=== PATIENT | male | born 1950 | race Caucasian/White ===

== ENCOUNTER → 2019-09-05 10:55 | Outpatient (BNVA) | payer MEDICARE, OTHER, SELFPAY | PROVIDERS: Family Provider Family Medicine; PCP Family Medicine; Visit Provider Specialist | DX: G20 Parkinson's disease (principal); G56.02 Carpal tunnel syndrome, left upper limb; Z87.891 Personal history of nicotine dependence | CPT/HCPCS: 99214 ==

== ENCOUNTER → 2019-09-12 11:23 | Outpatient (BNVA) | payer MEDICARE, OTHER, SELFPAY | PROVIDERS: Family Provider Family Medicine; PCP Family Medicine; Referring Provider Specialist; Visit Provider Specialist | DX: G62.9 Polyneuropathy, unspecified (principal); G56.23 Lesion of ulnar nerve, bilateral upper limbs; G56.03 Carpal tunnel syndrome, bilateral upper limbs | CPT/HCPCS: 95910 ==

== ENCOUNTER 2019-10-12 18:13 | Outpatient (CLI) | payer MEDICARE, OTHER, SELFPAY ==
[2019-10-12 18:37] LABS: Body Fluid WBC 1741 u/L; RBC, Body Fluid 0 10^3/uL (0-0)
[2019-10-12 19:46] LABS: Color, Body Fluid PALE YELLOW (PALE YELLOW)
[2019-10-12 19:47] LABS: Apprearance, Body Fluid CLOUDY (CLEAR)
[2019-10-12 20:49] LABS: Body Fluid Polynuclear #Cells 1.482 10^3/uL; Monocytes # Body Fluid 0.259 10^3/uL
[2019-10-12 20:51] LABS: PATH Referral YES
== END 2019-10-12 18:14 | disposition home or self-care (01) ==
PROVIDERS: Family Provider Family Medicine; PCP Family Medicine; Visit Provider Internal Medicine Nephrology
DX: R88.0 Cloudy (hemodialysis) (peritoneal) dialysis effluent (principal)
CPT/HCPCS: 80500; 87070; 87075; 87077; 87186; 87205; 89050

== ENCOUNTER 2019-10-19 15:53 | Outpatient (CLI) | payer MEDICARE, OTHER, SELFPAY ==
--- NOTE | 2019-10-19 16:04 | XR_ITS ---
WS: [id number] Flat and upright abdomen, 10/19/2019 Clinical Data: BLOCKED PO CATHETER Comparison: IVP, 01/22/2012. Findings: There are vascular calcifications probably from a tortuous splenic artery in the left upper quadrant. There are also calcifications to the right of the T12 vertebral body which could be in the pancreas. There is a 0.8 cm calculus overlying the inferior pole of the left kidney. The upright film of the a bdomen shows no free air beneath the diaphragms. There is air in the stomach, small bowel and colon a nd scattered air fluid levels in the small bowel. There is a catheter which is looped in the inferior aspect of the abdomen at the level of the pelvic brim. There are clips in the scrotum which are prob ably from a vasectomy. There is an electronic device overlying the right side of the abdomen. XR/XR abdomen 3V [id number] Impression: 1. Catheter which is curled in the inferior abdomen at the level of the pelvic brim. 2. Possible pancreatic calcifications and splenic artery calcifications. 3. Left renal calculus. 4. Mild generalized ileus.
== END 2019-10-19 15:54 | disposition home or self-care (01) ==
LOC: RAD 16:02
PROVIDERS: Family Provider Family Medicine; PCP Family Medicine; Visit Provider Internal Medicine Nephrology
DX: T85.898A Other specified complication of other internal prosthetic devices, implants and grafts, initial encounter (principal); Y83.8 Other surgical procedures as the cause of abnormal reaction of the patient, or of later complication, without mention of misadventure at the time of the procedure; N20.0 Calculus of kidney; K56.7 Ileus, unspecified
CPT/HCPCS: 74021

== ENCOUNTER 2019-11-26 17:52 | Outpatient (CLI) | payer MEDICARE, OTHER, SELFPAY ==
[2019-11-26 18:33] LABS: Body Fluid Polynuclear #Cells 0.001 10^3/uL; Body Fluid WBC 8 /uL; Monocytes # Body Fluid 0.007 10^3/uL; RBC, Body Fluid 1 10^3/uL (0-0)
[2019-11-26 18:36] LABS: Apprearance, Body Fluid CLEAR (CLEAR); Color, Body Fluid COLORLESS (PALE YELLOW); PATH Referral YES
== END 2019-11-26 17:53 | disposition home or self-care (01) ==
PROVIDERS: Family Provider Family Medicine; PCP Family Medicine; Visit Provider Internal Medicine Nephrology
DX: N18.6 End stage renal disease (principal)
CPT/HCPCS: 80500; 87070; 87075; 87205; 89050

== ENCOUNTER 2019-12-20 15:10 | Outpatient (RCR) | payer MEDICARE, OTHER, SELFPAY | END 2020-01-07 23:59 | disposition home or self-care (01) | LOC: SOT 15:10 | PROVIDERS: PCP Family Medicine; Referring Provider Nurse Practitioner Family; Visit Provider Nurse Practitioner Family | DX: G56.02 Carpal tunnel syndrome, left upper limb (principal) | CPT/HCPCS: 97035; 97110; 97140; 97166 ==

== ENCOUNTER 2020-01-08 06:00 | Outpatient (RCR) | payer MEDICARE, OTHER, SELFPAY | END 2020-02-06 23:59 | disposition home or self-care (01) | LOC: SOT 06:00 | PROVIDERS: PCP Family Medicine; Visit Provider Nurse Practitioner Family | DX: G56.02 Carpal tunnel syndrome, left upper limb (principal) | CPT/HCPCS: 97035; 97110; 97140 ==

== ENCOUNTER 2020-02-07 06:00 | Outpatient (RCR) | payer MEDICARE, OTHER, SELFPAY | END 2020-03-08 23:59 | disposition home or self-care (01) | LOC: SOT 06:00 | PROVIDERS: PCP Family Medicine; Visit Provider Nurse Practitioner Family | DX: G56.02 Carpal tunnel syndrome, left upper limb (principal) | CPT/HCPCS: 97035; 97110; 97140 ==

== ENCOUNTER 2020-03-09 06:00 | Outpatient (RCR) | payer MEDICARE, OTHER, SELFPAY | END 2020-04-08 23:59 | disposition home or self-care (01) | LOC: SOT 06:00 | PROVIDERS: PCP Family Medicine; Visit Provider Nurse Practitioner Family | DX: M75.42 Impingement syndrome of left shoulder (principal) | CPT/HCPCS: 97035; 97110; 97140 ==

== ENCOUNTER 2020-03-14 06:00 | Outpatient (RCR) | payer MEDICARE, OTHER, SELFPAY | END 2020-04-08 23:59 | disposition home or self-care (01) | LOC: SPT 06:00 | PROVIDERS: PCP Family Medicine; Referring Provider Orthopaedic Surgery; Visit Provider Orthopaedic Surgery | DX: M75.42 Impingement syndrome of left shoulder (principal) | CPT/HCPCS: 97110; 97161 ==

== ENCOUNTER 2020-04-09 06:00 | Outpatient (RCR) | payer MEDICARE, OTHER, SELFPAY | END 2020-05-08 23:59 | disposition home or self-care (01) | LOC: SPT 06:00 | PROVIDERS: PCP Family Medicine; Referring Provider Orthopaedic Surgery; Visit Provider Orthopaedic Surgery | DX: M75.42 Impingement syndrome of left shoulder (principal) | CPT/HCPCS: 97110 ==

== ENCOUNTER 2020-08-12 06:54 | Emergency (ER) | payer MEDICARE, OTHER, SELFPAY ==
[2020-08-12 06:56] VITALS: BP 97/65; PULSE 68; RESP 20; TEMP 36.6; O2SAT 98; BMI 29.2
--- NOTE | 2020-08-12 07:02 | XR_ITS ---
WS: [id number] PORTABLE CHEST HISTORY: chest pain COMPARISON: 03/19/2018 Well-aerated lungs with a linear scar at the lingula and granuloma in the central LEFT lung. No pneum onia. No pleural effusion or pneumothorax. Cardiac size: Normal. Mediastinum/Aorta: Normal mediastinum. No osseous abnormality seen. XR/XR chest 1V portable [id number] IMPRESSION: Unremarkable portable chest.
[2020-08-12 07:08] LABS: Glucose Point of Care 53 mg/dL (70-110)
--- NOTE | 2020-08-12 07:11 | ED_ITS ---
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 He also has a history of known coronary disease states he had a stent about 2 months ago at [facility]. He intermittently continues to have chest pain he took a nitro for chest pain that began at rest 1 week ago and this morning around 5 AM began having chest pain he states it was a 2-3 of 10 he ended up taking 2 nitro after which he called 911 and then took a third nitro. On arrival here he still states his chest pain of 1-2. His blood sugar is decreased, he was 81 in the field and is 58 on arrival here. For the most part his chest pain has resolved now. He denies any shortness of breath. The chest pain began while he was at rest and radiated into his back and into both arms. MD complaint: chest pain Pertinent past history: coronary artery disease Onset (ago): hour(s) Timing of current episode: episodic Prior episodes: Yes Onset: during rest Pain location: substernal Pain radiation: right arm, left arm, left shoulder and right shoulder Severity: mild Pain scale (0-10): 3 Quality: aching and heaviness Relieving factors: nitroglycerin Exacerbating factors: nothing Associated symptoms: Reports dyspnea; Deny abdominal pain, diaphoresis, fever(s), leg edema, nausea, palpitations, sense of impending doom, syncope or vomiting Treatment prior to arrival: nitroglycerin Review of Systems Const: Denies: fever(s) or diaphoresis ENMT: Denies: throat pain, ear or mastoid pain, nasal discharge or nasal congestion Card: Denies: palpitations or syncope Resp: Reports: dyspnea GI: Denies: abdominal pain, nausea or vomiting : Denies: flank pain, dysuria, urinary frequency or urinary urgency Skin/Breast: Denies: rash or pruritus PFSH ED PFSH: Family History Other CAD (coronary artery disease) Cancer Diabetes Hypertension Denies family history of Stroke Social History Smoking and tobacco status: former smoker Quit status (tobacco): has quit using tobacco Year quit tobacco: 1992 Alcohol intake: never Physical Exam Const: COMMON NORMALS: no acute distress GENERAL APPEARANCE: cooperative and comfortable ORIENTATION/CONSCIOUSNESS: Yes awake, Yes oriented to person, Yes oriented to place and Yes oriented to time HENMT: COMMON NORMALS: normocephalic, atraumatic and hearing grossly normal bilaterally HEAD & SCALP: normocephalic and atraumatic Eye: COMMON NORMALS: Equal, round and reactive pupils present, EOMs intact bilaterally, conjunctivae normal and no scleral icterus CONJUNCTIVA: Yes conj unctivae normal PUPIL: Yes Equal, round and reactive pupils present Neck/C-Spine: COMMON NORMALS: no JVD Resp: COMMON NORMALS: normal respiratory effort, No retractions, No use of accessory muscles and clear to auscultation bilaterally AUSCULTATION: clear to auscultation bilaterally Cardio: COMMON NORMALS: no JVD, regular rate, regular rhythm and No murmurs present (Cardio) RATE: regular rate RHYTHM: regular rhythm GI: COMMON NORMALS: Soft to palpation and No hepatosplenomegaly present AUSCULTATION: Yes normoactive bowel sounds PALPATION: Yes Soft to palpation, No Tenderness to palpation present (GI), No Guarding due to palpation present (GI) and Yes No hepatosplenomegaly present Extremity: COMMON NORMALS: normal to inspection, capillary refill normal, no clubbing, cyanosis or edema, no calf tenderness and no pedal edema Neuro: SENSORIUM/ORIENTATION: Yes oriented to person, Yes oriented to place and Yes oriented to time OTHER: Left arm tremor at rest. Masklike facies consistent with Parkinson's Skin: COMMON NORMALS: no rashes or lesions noted GENERAL SKIN EXAM: no rashes or lesions noted Course Vital Signs: Vital signs: Vital Signs Temperature 97.8 F 08/12/20 06:56 Pulse Rate 75 08/12/20 12:13 Respiratory Rate 16 08/12/20 12:13 Blood Pressure 128/85 08/12/20 12:13 Pulse Oximetry 100 08/12/20 12:13 MDM - Chest Pain MDM Narrative: Medical decision making narrative: EMS initial EKG showed some inferior slight inferior ST elevation which resolved and the patient was pain- free by the time he arrived here. His troponin is markedly elevated some of which is certainly contributed to by his end-stage renal disease but we do not have a baseline on him. Given his escalating symptoms response to nitro the elevated troponin is multiple risk factors he does need further evaluation cardiology consultation. We are currently beyond capacity for inpatients in addition the patient previously had his Cardiologic intervention at [facility] it is in the best interest of the patient to transfer him to [place] for continuity of care and availability of beds [place] has excepted we are making arrangements for transfer Covid is pending Covid was negative. Transfer in stable condition Lab Data: Labs: Lab Results 08/12/20 08/12/20 08/12/20 Range/Units 07:01 07:15 07:15 WBC 6.7 (4.0-10.0) 10^3/ uL RBC 3.09 L (4.1-5.3) 10^6/u L Hgb 10.4 L (11.7-16.6) g/dL Hct 32.0 L (42.0-52.0) % MCV 103.6 H (80-94) fL MCH 33.7 (28.0-34.0) pg MCHC 32.5 (30.0-36.0) g/dL RDW 16.6 H (12.1-15.1) % Plt Count 128 L (130-400) 10^3/c mm MPV 10.2 (7.4-10.4) fL Neut % (Auto) 62.5 % Lymph % (Auto) 23.3 % [place] % (Auto) 10.4 % Eos % (Auto) 1.8 % Baso % (Auto) 0.5 % Neut # (Auto) 4.17 (1.8-7.7) 10^3/u L Lymph # (Auto) 1.6 (0.8-4.8) 10^3/u L [place] # (Auto) 0.7 (0.2-0.9) 10^3/u L Eos # (Auto) 0.1 (0.0-0.8) 10^3/u L Baso # (Auto) 0.0 (0.0-0.1) 10^3/u L Nucleated RBC % (a uto) 0 % Nucleated RBCs # 0.0 /100WBC Sodium 137 (136-145) mmol/L Potassium 3.9 (3.5-5.1) mmol/L Chloride 96 L (98-107) mmol/L Carbon Dioxide 25 (22-29) mmol/L Anion Gap 19.9 H (5-19) BUN 29 H (8-23) mg/dL Creatinine 10.3 H* (0.7-1.2) mg/dL GFR Calculation 5.0 L (90-130) mL/min Glucose 55 L (65-115) mg/dL POC Glucose 53 L (70-110) mg/dL Calculated Osmolal ity 287 (285-295) mOsm/k g Calcium 8.2 L (8.5-10.5) mg/dL Total Bilirubin 0.3 (0.15-1.2) mg/dL AST 10 (0-40) U/L ALT < 5 (0-41) U/L Alkaline Phosphata se 109 (40-130) IU/L Troponin T Baselin e (0-15) ng/L Troponin T 120 Min [place] (0-15) ng/L Delta Troponin T (0-10) ABS# Total Protein 5.8 L (6.6-8.7) g/dL Albumin 3.7 (3.5-5.2) g/dL Globulin 2.1 (1.3-4.6) g/dL SARS-CoV-2 Ag (Rap id) (Negative) 08/12/20 08/12/20 08/12/20 Range/Units 07:15 07:53 09:35 WBC (4.0-10.0) 10^3/ uL RBC (4.1-5.3) 10^6/u L Hgb (11.7-16.6) g/dL Hct (42.0-52.0) % MCV (80-94) fL MCH (28.0-34.0) pg MCHC (30.0-36.0) g/dL RDW (12.1-15.1) % Plt Count (130-400) 10^3/c mm MPV (7.4-10.4) fL Neut % (Auto) % Lymph % (Auto) % [place] % (Auto) % Eos % (Auto) % Baso % (Auto) % Neut # (Auto) (1.8-7.7) 10^3/u L Lymph # (Auto) (0.8-4.8) 10^3/u L [place] # (Auto) (0.2-0.9) 10^3/u L Eos # (Auto) (0.0-0.8) 10^3/u L Baso # (Auto) (0.0-0.1) 10^3/u L Nucleated RBC % (a uto) % Nucleated RBCs # /100WBC Sodium (136-145) mmol/L Potassium (3.5-5.1) mmol/L Chloride (98-107) mmol/L Carbon Dioxide (22-29) mmol/L Anion Gap (5-19) BUN (8-23) mg/dL Creatinine (0.7-1.2) mg/dL GFR Calculation (90-130) mL/min Glucose (65-115) mg/dL POC Glucose 123 H (70-110) mg/dL Calculated Osmolal ity (285-295) mOsm/k g Calcium (8.5-10.5) mg/dL Total Bilirubin (0.15-1.2) mg/dL AST (0-40) U/L ALT (0-41) U/L Alkaline Phosphata se (40-130) IU/L Troponin T Baselin e 350 H* (0-15) ng/L Troponin T 120 Min [place] 314.6 H (0-15) ng/L Delta Troponin T -35.4 L (0-10) ABS# Total Protein (6.6-8.7) g/dL Albumin (3.5-5.2) g/dL Globulin (1.3-4.6) g/dL SARS-CoV-2 Ag (Rap id) (Negative) 08/12/20 Range/Units 10:27 WBC (4.0-10.0) 10^3/ uL RBC (4.1-5.3) 10^6/u L Hgb (11.7-16.6) g/dL Hct (42.0-52.0) % MCV (80-94) fL MCH (28.0-34.0) pg MCHC (30.0-36.0) g/dL RDW (12.1-15.1) % Plt Count (130-400) 10^3/c mm MPV (7.4-10.4) fL Neut % (Auto) % Lymph % (Auto) % [place] % (Auto) % Eos % (Auto) % Baso % (Auto) % Neut # (Auto) (1.8-7.7) 10^3/u L Lymph # (Auto) (0.8-4.8) 10^3/u L [place] # (Auto) (0.2-0.9) 10^3/u L Eos # (Auto) (0.0-0.8) 10^3/u L Baso # (Auto) (0.0-0.1) 10^3/u L Nucleated RBC % (a uto) % Nucleated RBCs # /100WBC Sodium (136-145) mmol/L Potassium (3.5-5.1) mmol/L Chloride (98-107) mmol/L Carbon Dioxide (22-29) mmol/L Anion Gap (5-19) BUN (8-23) mg/dL Creatinine (0.7-1.2) mg/dL GFR Calculation (90-130) mL/min Glucose (65-115) mg/dL POC Glucose (70-110) mg/dL Calculated Osmolal ity (285-295) mOsm/k g Calcium (8.5-10.5) mg/dL Total Bilirubin (0.15-1.2) mg/dL AST (0-40) U/L ALT (0-41) U/L Alkaline Phosphata se (40-130) IU/L Troponin T Baselin e (0-15) ng/L Troponin T 120 Min [place] (0-15) ng/L Delta Troponin T (0-10) ABS# Total Protein (6.6-8.7) g/dL Albumin (3.5-5.2) g/dL Globulin (1.3-4.6) g/dL SARS-CoV-2 Ag (Rap id) Negative (Negative) Discharge Plan Discharge Patient Disposition: Transfer to ED Clinical Impression: Unstable angina pectoris, End-stage renal disease on peritoneal dialysis, Elevated troponin, Diabetes mellitus Condition: Stable Prescriptions: No Action allopurinol 300 mg tablet 300 mg PO QDAY RF: 0 trazodone 100 mg tablet 200 mg PO QDAY RF: 0 tramadol 50 mg tablet 50 mg PO Q6H PRNRF: 0 mirtazapine 45 mg tablet 45 mg PO QDAY RF: 0 omeprazole 20 mg capsule,delayed release(DR/EC) 20 mg PO QDAY RF: 0 hydralazine 100 mg tablet 100 mg PO TID RF: 0 lamotrigine [Lamictal] 200 mg tablet 400 mg PO .evening RF: 0 furosemide 80 mg tablet 80 mg PO .COMPLEX RF: 0 docusate sodium [DOK] 100 mg capsule 100 mg PO BID RF: 0 finasteride 5 mg tablet 5 mg PO QDAY RF: 0 calcium carbonate 200 mg calcium (500 mg) tablet,chewable 200 mg PO ONCE PRNRF: 0 Pancreaze 10,500-35,500- 61,500 unit capsule,delayed release(DR/EC) 1 cap PO ONCE RF: 0 pwinkcn-esmgyyzrg-jzvu 333-133-5 mg tablet PO ONCE RF: 0 potassium chloride 20 mEq tablet extended release 20 meq PO BID RF: 0 terazosin 1 mg capsule 1 mg PO QDAY RF: 0 bupropion HCl [Wellbutrin SR] 150 mg tablet sustained-release 12 hr 150 mg PO BID RF: 0 risperidone [Risperdal] 2 mg tablet 2 mg PO QDAY RF: 0 pregabalin 225 mg capsule 225 mg PO BID RF: 0 levothyroxine 175 mcg capsule 175 mcg PO QDAY RF: 0 metoprolol succinate 100 mg tablet extended release 24 hr 100 mg PO BID RF: 0 atorvastatin 40 mg tablet 40 mg PO QDAY RF: 0 Levemir U-100 Insulin 100 unit/mL solution 40 unit SUBCUT BID RF: 0 insulin aspart U-100 [Novolog Flexpen U-100 Insulin] 100 unit/mL (3 mL) insulin pen 15 unit SUBCUT TID RF: 0 primidone 50 mg tablet 50 mg PO DAILY Qty: 90 RF: 0 Referrals: Kiran Reardon MD [Primary Care Provider] - Coding Level of Care Code ED Security Program Manager for Chg Fwd Exam Comprehensive
[2020-08-12] MEDS: dextrose 50% syringe 50 mL 25 ML IVP ×2 (07:18→08:37)
--- NOTE | 2020-08-12 07:19 | PC.NURSE ---
Patients blood sugar checked during triage. At that time blood sugar reading was 53. [place] juice was given to the patient to help increase sugar. Patient drank all orange juice provided. IV obtained and dextrose was administered.
[2020-08-12 07:28] LABS: Basophils % 0.5 %; Eosinophils # 0.1 10^3/uL (0.0-0.8); Eosinophils % 1.8 %; Hemoglobin 10.4 g/dL (11.7-16.6); Lymphocytes # 1.6 10^3/uL (0.8-4.8); Lymphocytes % 23.3 %; Mean Corpuscular HGB Conc 32.5 g/dL (30.0-36.0); Mean Corpuscular Hemoglobin 33.7 pg (28.0-34.0); Mean Corpuscular Volume 103.6 fL (80-94); Mean Platelet Volume 10.2 fL (7.4-10.4); Monocytes # 0.7 10^3/uL (0.2-0.9); Monocytes % 10.4 %; Neutrophils # 4.17 10^3/uL (1.8-7.7); Neutrophils % 62.5 %; Nucleated Red Blood Cells % 0 %; Platelet Count 128 10^3/cmm (130-400); Red Blood Count 3.09 10^6/uL (4.1-5.3); Red Cell Distribution Width 16.6 % (12.1-15.1); White Blood Count 6.7 10^3/uL (4.0-10.0)
[2020-08-12 07:44] LABS: Alanine Aminotransferase < 5 U/L (0-41); Albumin Level 3.7 g/dL (3.5-5.2); Alkaline Phosphatase 109 IU/L (40-130); Aspartate Amino Transferase 10 U/L (0-40); Blood Urea Nitrogen 29 mg/dL (8-23); Calcium 8.2 mg/dL (8.5-10.5); Carbon Dioxide 25 mmol/L (22-29); Chloride 96 mmol/L (98-107); Globulin 2.1 g/dL (1.3-4.6); Glucose 55 mg/dL (65-115); Osmolality Calculated 287 mOsm/kg (285-295); Sodium 137 mmol/L (136-145); Total Bilirubin 0.3 mg/dL (0.15-1.2); Total Protein 5.8 g/dL (6.6-8.7)
[2020-08-12 07:50] LABS: Anion Gap 19.9 (5-19); Potassium 3.9 mmol/L (3.5-5.1); Troponin(5th) Baseline 350 ng/L (0-15)
[2020-08-12 07:56] LABS: Glucose Point of Care 123 mg/dL (70-110)
[2020-08-12 08:06] VITALS: BP 110/75; PULSE 59; RESP 16; O2SAT 97
[2020-08-12] MEDS: heparin 5,000 unit/mL INJ 1 mL 4000 UNIT IVP (08:36)
[2020-08-12] MEDS: dextrose 5%-sod chloride 0.9% 1,000 ML 100 ML IV (08:37)
[2020-08-12] MEDS: heparin drip 25,000 UNIT/500 ML PREMIX 26.7 UNIT IV (08:37)
--- NOTE | 2020-08-12 09:02 | ECG_ITS ---
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 Measurements Intervals [place] Rate: 57 P: 58 IL: 246 QRS: -6 QRSD: 99 T: 71 QT: 448 QTc: 438 Interpretive Statements SINUS BRADYCARDIA WITH FIRST DEGREE AV BLOCK NONSPECIFIC T-WAVE ABNORMALITY Compared to ECG 03/19/2018 07:47:47 First degree AV block now present T-wave abnormality now present Sinus tachycardia no longer present Electronically Signed On 08-12-2020 19:07:57 SURGICAL GARMENT FITTER by Lino Javier M.D. [email or web address] [email or web address] [id number]
[2020-08-12 09:07] VITALS: BP 126/67; PULSE 59; RESP 16; O2SAT 96
[2020-08-12 10:23] VITALS: BP 129/78; PULSE 58; RESP 16; O2SAT 100
[2020-08-12 10:38] LABS: Troponin 5 2HR 314.6 ng/L (0-15); Troponin 5 2HR Delta -35.4 ABS# (0-10)
[2020-08-12 10:56] LABS: SARS Covid-2 Antigen Negative (Negative)
[2020-08-12 12:13] VITALS: BP 128/85; PULSE 75; RESP 16; O2SAT 100
[2020-08-12 13:12] LABS: Magnesium 2.1 mg/dL (1.7-2.3)
--- NOTE | 2020-08-12 13:12 | ECG_ITS ---
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 Measurements Intervals [place] Rate: 60 P: 39 SC: 239 QRS: -5 QRSD: 98 T: 78 QT: 429 QTc: 430 Interpretive Statements SINUS RHYTHM WITH FIRST DEGREE AV BLOCK NONSPECIFIC T-WAVE ABNORMALITY Compared to ECG 03/19/2018 07:47:47 First degree AV block now present T-wave abnormality now present Sinus tachycardia no longer present Electronically Signed On 08-12-2020 19:08:58 SAND CASTER APPRENTICE by Lino Javier M.D. [id number]
== END 2020-08-12 12:14 ==
PROVIDERS: Emergency Provider Family Medicine; PCP Family Medicine
DX: E11.22 Type 2 diabetes mellitus with diabetic chronic kidney disease (principal); N18.6 End stage renal disease; Z99.2 Dependence on renal dialysis; I20.0 Unstable angina; R77.8 Other specified abnormalities of plasma proteins; Z79.4 Long term (current) use of insulin; Z87.891 Personal history of nicotine dependence
CPT/HCPCS: 12345; 36416; 71045; 80053; 82962; 83735; 84484; 85025; 87426; 93005; 96365; 96366; 96375; 99283; 99285; J1644

== ENCOUNTER 2020-10-24 01:33 | Inpatient (IN) | payer MEDICARE, OTHER, SELFPAY ==
[2020-10-24] VITALS (11 sets, daily range): BP systolic 91–123; BP diastolic 52–89; PULSE 56–85; RESP 16–18; TEMP 36.3–37.1; O2SAT 92–97; BMI 27.3
--- NOTE | 2020-10-24 01:32 | XR_ITS ---
WS: [id number] XR chest 1V portable [id number] REASON FOR EXAM: SOB FINDINGS: The chest is unchanged compared to 08/12/2020. Mild tortuosity and ectasia of the thoracic aorta without aneurysmal dilatation. Normal heart size. Calcified granulomatous disease in both hemithoraces. No active pulmonary parenchymal pleural disease . No significant abnormality of the bony thorax. XR/XR chest 1V portable [id number] IMPRESSION: No acute chest abnormality.
--- NOTE | 2020-10-24 01:35 | ED_ITS ---
HPI - General Adult General: Chief complaint: General Medical Stated complaint: WEAK/LOW BP Source: patient, family and RN notes reviewed Limitations: no limitations History of Present Illness: HPI narrative: This patient presents to the emergency department via EMS for concerns of shortness of breath. Patient describes a panic type issue. Patient states he was laying in bed and suddenly felt like he could not breathe and was shaking and set up and had to get up real fast patient states he does not ambulate very well and is on multiple medications. states that the believes that he does have Parkinson disease and does take medications for the same even though he does not officially have a diagnosis of Parkinson's disease. Patient's chronic condition is that he lays in the bed and sleeps for about 22 hours a day and this has been like this for some time. Patient does take peritoneal dialysis chronically patient also has a history of diabetes. Patient does have an insulin glucose monitor right abdomen. No fever upon arrival. Patient describes no pain at this time no chest pain. Patient is feeling much better. describes that the patient did have a poor appetite for the past couple of days and even vomited tonight prior to being picked up and brought to the emergency department. Patient does have a history of issues with his pancreas and acetate protease enzymes to help with digestion. Patient is followed by multiple physicians and is usually cared for by his primary care physicians out of [facility] in [place]. Patient has a long history of hypertension but they have been weaning him off of his blood pressure medicines because now he is having low blood pressure readings. We will do medical screening exam and evaluate treat further as needed Onset (ago): day(s) (5) Pain Consistency: intermittent Associated symptoms: Reports malaise; Deny chest pain, dyspnea, headache(s), nausea, rash, palpitations or vomiting Review of Systems General: Reports: 10 or more systems reviewed and unremarkable except in HPI and below Const: Reports: change in appetite, malaise and daytime sleepiness; Denies: fever(s), chills, body aches or fatigue Eyes: Denies: change in vision or blurry vision ENMT: Denies: throat pain, hoarseness or mouth pain Card: Denies: chest pain or palpitations Resp: Denies: dyspnea GI: Denies: nausea or vomiting : Reports: flank pain; Denies: dysuria, urinary frequency, urinary urgency or urinary hesitancy Musc: Denies: neck pain, back pain, extremity pain, extremity swelling, joint pain, joint swelling, joint redness, joint warmth or limited range of motion Skin/Breast: Denies: rash Neuro: Denies: headache(s) Psych: Denies: anxiety or depression PFSH ED PFSH: Medical History Diabetes Hypertension Surgical History History of carpal tunnel release left wrist 1975 Family History Other CAD (coronary artery disease) Cancer Diabetes Hypertension Denies family history of Stroke Social History Smoking and tobacco status: former smoker Quit status (tobacco): has quit using tobacco Year quit tobacco: 1992 Alcohol intake: never Physical Exam Const: COMMON NORMALS: no acute distress, average body habitus, patient oriented x3, no limitations, healthy appearing, alert and well nourished HENMT: COMMON NORMALS: normocephalic, atraumatic, external ears normal, EAC's normal, TM's normal bilaterally, Normal external nose present and Normal nasal mucous membranes and turbinates present HEAD & SCALP: normocephalic and atra umatic NOSE: Normal external nose present and Normal nasal mucous membranes and turbinates present EXTERNAL EAR: Yes external ears normal EXTERNAL AUDITORY CANAL: EAC's normal TYMPANIC MEMBRANE: TM's normal bilaterally Neck/C-Spine: COMMON NORMALS: full ROM, no lymphadenopathy, supple, no meningeal signs, no JVD, Thyroid normal and No carotid bruits THYROID: Thyroid normal Chest: COMMONS NORMALS: normal inspection of the chest, normal palpation of entire chest wall, normal inspection of the breasts and normal palpation of the breasts Breast/axilla inspection: Yes normal inspection of the breasts BREAST/AXILLA PALPATION: Yes normal palpation of the breasts Resp: COMMON NORMALS: normal respiratory effort, No retractions, No use of accessory muscles, clear to auscultation bilaterally and percussion normal AUSCULTATION: clear to auscultation bilaterally PERCUSSION: percussion normal Cardio: COMMON NORMALS: no JVD, regular rate, regular rhythm, S1 normal heart sound present, S2 normal heart sound present, No gallops present (Cardio), No clicks present (Cardio), No murmurs present (Cardio), No rub (Cardio) and Peripheral pulses 2+ throughout RATE: regular rate RHYTHM: regular rhythm HEART SOUNDS: S1 normal heart sound present and S2 normal heart sound present PERIPHERAL PULSES: Peripheral pulses 2+ throughout GI: COMMON NORMALS: Normal to inspection, nondistended, normoactive bowel sounds present, Soft to palpation, non-tender, No hepatosplenomegaly present, no masses and no bruits PALPATION: Yes Soft to palpation and Yes No hepatosplenomegaly present : COMMON NORMALS: Yes no CVA tenderness BLADDER/KIDNEY EXAM: Yes no CVA tenderness Back/Pelvis: COMMON NORMALS: no CVA tenderness, thoracic and lumbar spine normal to inspection, no thoracic nor lumbar tenderness, thoraco-lumbar ROM normal and straight leg raise negative bilaterally Extremity: COMMON NORMALS: normal to inspection, full ROM, capillary refill normal, no joint enlargement, no clubbing, cyanosis or edema, no calf tenderness and no pedal edema Neuro: COMMON NORMALS: patient oriented x3 SENSORIUM/ORIENTATION: Yes alert MENINGEAL SIGNS: Yes no meningeal signs Course Reevaluation(s): Reevaluation #1: Patient is resting at this time. Patient's potassium was 2.7 with baseline is around 3.6. Patient does take peritoneal dialysis and has chronic renal failure. and patient states the patient has had no appetite and has lost greater than 10 pounds in the past 7 to 9 days. states that anytime he eats he vomits up. Profound lower blood pressures over the past couple weeks and has stopped taking medications. is concerned that the patient is just getting sicker and sicker nobody knows what is going on. Patient excessively sleeping up to 20 to 22 hours a day. No activity. Patient's been started on Parkinson's medications for tremor. 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 is concerned that the patient is getting sicker still have significant issues of discharged home. I did discuss at length with both the advise that we would contact hospitalist for possible admission for failure to thrive. Time: 03:11 Consultations: Consultation #1: I discussed at length with Dr. Schroeder. We did review the patient's chart patient be admitted to the hospital for observation. She will see patient write additional orders Time: 03:12 Vital Signs: Vital signs: Vital Signs Temperature 98.7 F 10/24/20 01:19 Pulse Rate 71 10/24/20 02:30 Respiratory Rate 16 10/24/20 02:30 Blood Pressure 116/63 10/24/20 02:30 Pulse Oximetry 97 10/24/20 02:30 MDM - General Adult Lab Data: Labs: Lab Results 10/24/20 10/24/20 10/24/20 Range/Units 01:42 01:42 01:42 WBC 7.0 (4.0-10.0) 10^3/ uL RBC 3.75 L (4.1-5.3) 10^6/u L Hgb 12.2 (11.7-16.6) g/dL Hct 35.5 L (42.0-52.0) % MCV 94.7 H (80-94) fL MCH 32.5 (28.0-34.0) pg MCHC 34.4 (30.0-36.0) g/dL RDW 13.7 (12.1-15.1) % Plt Count 125 L (130-400) 10^3/c mm MPV 11.1 H (7.4-10.4) fL Neut % (Auto) 77.5 % Lymph % (Auto) 11.9 % [place] % (Auto) 8.3 % Eos % (Auto) 1.0 % Baso % (Auto) 0.4 % Neut # (Auto) 5.45 (1.8-7.7) 10^3/u L Lymph # (Auto) 0.8 (0.8-4.8) 10^3/u L [place] # (Auto) 0.6 (0.2-0.9) 10^3/u L Eos # (Auto) 0.1 (0.0-0.8) 10^3/u L Baso # (Auto) 0.0 (0.0-0.1) 10^3/u L Nucleated RBC % (a uto) 0 % Nucleated RBCs # 0.0 /100WBC PT 13.40 (12.1-14.9) SECO NDS INR 0.99 (0.8-1.2) APTT 21.3 L (23.9-36.7) SECO NDS Sodium 133 L (136-145) mmol/L Potassium 2.7 L* (3.5-5.1) mmol/L Chloride 93 L (98-107) mmol/L Carbon Dioxide 25 (22-29) mmol/L Anion Gap 17.7 (5-19) BUN 37 H (8-23) mg/dL Creatinine 10.9 H* (0.7-1.2) mg/dL GFR Calculation 4.7 L (90-130) mL/min Glucose 127 H (65-115) mg/dL Calculated Osmolal ity 286 (285-295) mOsm/k g Lactate (0.5-2.2) mmol/L Calcium 7.9 L (8.5-10.5) mg/dL Magnesium 2.3 (1.7-2.3) mg/dL Total Bilirubin 0.3 (0.15-1.2) mg/dL AST 6 (0-40) U/L ALT < 5 (0-41) U/L Alkaline Phosphata se 135 H (40-130) IU/L C-Reactive Protein 12.6 H (0.0-4.9) mg/L NT-Pro-B Natriuret Pep 1902 H (0-125) pg/mL Total Protein 5.7 L (6.6-8.7) g/dL Albumin 2.7 L (3.5-5.2) g/dL Globulin 3.0 (1.3-4.6) g/dL Lipase 5 L (13-60) U/L Procalcitonin 0.38 (0-0.5) ng/mL Urine Color (Yellow) Urine Appearance (CLEAR) Urine pH (5-7) Ur Specific Gravit y (1.005-1.030) Urine Protein (Negative) Urine Glucose (UA) (Normal) Urine Ketones (Negative) Urine Blood (Negative) Urine Nitrate (Negative) Urine Bilirubin (Negative) Urine Urobilinogen (Negative) mg/dL Ur Leukocyte Leyla ase (Negative) Urine RBC (0-2) /hpf Urine WBC (0-5) /hpf Ur Squamous Epith Cells (0-5) /hpf Amorphous Sediment /hpf Urine Bacteria (NONE) /hpf 10/24/20 10/24/20 Range/Units 01:42 02:27 WBC (4.0-10.0) 10^3/ uL RBC (4.1-5.3) 10^6/u L Hgb (11.7-16.6) g/dL Hct (42.0-52.0) % MCV (80-94) fL MCH (28.0-34.0) pg MCHC (30.0-36.0) g/dL RDW (12.1-15.1) % Plt Count (130-400) 10^3/c mm MPV (7.4-10.4) fL Neut % (Auto) % Lymph % (Auto) % [place] % (Auto) % Eos % (Auto) % Baso % (Auto) % Neut # (Auto) (1.8-7.7) 10^3/u L Lymph # (Auto) (0.8-4.8) 10^3/u L [place] # (Auto) (0.2-0.9) 10^3/u L Eos # (Auto) (0.0-0.8) 10^3/u L Baso # (Auto) (0.0-0.1) 10^3/u L Nucleated RBC % (a uto) % Nucleated RBCs # /100WBC PT (12.1-14.9) SECO NDS INR (0.8-1.2) APTT (23.9-36.7) SECO NDS Sodium (136-145) mmol/L Potassium (3.5-5.1) mmol/L Chloride (98-107) mmol/L Carbon Dioxide (22-29) mmol/L Anion Gap (5-19) BUN (8-23) mg/dL Creatinine (0.7-1.2) mg/dL GFR Calculation (90-130) mL/min Glucose (65-115) mg/dL Calculated Osmolal ity (285-295) mOsm/k g Lactate 3.4 H (0.5-2.2) mmol/L Calcium (8.5-10.5) mg/dL Magnesium (1.7-2.3) mg/dL Total Bilirubin (0.15-1.2) mg/dL AST (0-40) U/L ALT (0-41) U/L Alkaline Phosphata se (40-130) IU/L C-Reactive Protein (0.0-4.9) mg/L NT-Pro-B Natriuret Pep (0-125) pg/mL Total Protein (6.6-8.7) g/dL Albumin (3.5-5.2) g/dL Globulin (1.3-4.6) g/dL Lipase (13-60) U/L Procalcitonin (0-0.5) ng/mL Urine Color Yellow (Yellow) Urine Appearance Clear (CLEAR) Urine pH 5 (5-7) Ur Specific Gravit y 1.020 (1.005-1.030) Urine Protein Neg (Negative) Urine Glucose (UA) 2+ (Normal) Urine Ketones 1+ H (Negative) Urine Blood 2+ H (Negative) Urine Nitrate Negative (Negative) Urine Bilirubin 1+ H (Negative) Urine Urobilinogen Norm (Negative) mg/dL Ur Leukocyte Leyla ase Negative (Negative) Urine RBC 0-4 H (0-2) /hpf Urine WBC Rare (0-5) /hpf Ur Squamous Epith Cells Rare (0-5) /hpf Amorphous Sediment 2+ /hpf Urine Bacteria None (NONE) /hpf Discharge Plan Discharge Clinical Impression: Adult failure to thrive, Parkinsonian tremor, Nausea & vomiting, Acute hypokalemia, Chronic kidney 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, Excessive weight loss Condition: Stable Prescriptions: No Action allopurinol 300 mg tablet 300 mg PO QDAY RF: 0 trazodone 100 mg tablet 200 mg PO QDAY RF: 0 tramadol 50 mg tablet 50 mg PO Q6H PRNRF: 0 mirtazapine 45 mg tablet 45 mg PO QDAY RF: 0 omeprazole 20 mg capsule,delayed release(DR/EC) 20 mg PO QDAY RF: 0 hydralazine 100 mg tablet 100 mg PO TID RF: 0 lamotrigine [Lamictal] 200 mg tablet 400 mg PO .evening RF: 0 furosemide 80 mg tablet 80 mg PO .COMPLEX RF: 0 docusate sodium [DOK] 100 mg capsule 100 mg PO BID RF: 0 finasteride 5 mg tablet 5 mg PO QDAY RF: 0 calcium carbonate 200 mg calcium (500 mg) tablet,chewable 200 mg PO ONCE PRNRF: 0 Pancreaze 10,500-35,500- 61,500 unit capsule,delayed release(DR/EC) 1 cap PO ONCE RF: 0 xwwaiqm-frmvvdbzj-yahi 333-133-5 mg tablet PO ONCE RF: 0 potassium chloride 20 mEq tablet extended release 20 meq PO BID RF: 0 terazosin 1 mg capsule 1 mg PO QDAY RF: 0 bupropion HCl [Wellbutrin SR] 150 mg tablet sustained-release 12 hr 150 mg PO BID RF: 0 risperidone [Risperdal] 2 mg tablet 2 mg PO QDAY RF: 0 pregabalin 225 mg capsule 225 mg PO BID RF: 0 levothyroxine 175 mcg capsule 175 mcg PO QDAY RF: 0 metoprolol succinate 100 mg tablet extended release 24 hr 100 mg PO BID RF: 0 atorvastatin 40 mg tablet 40 mg PO QDAY RF: 0 Levemir U-100 Insulin 100 unit/mL solution 40 unit SUBCUT BID RF: 0 insulin aspart U-100 [Novolog Flexpen U-100 Insulin] 100 unit/mL (3 mL) insulin pen 15 unit SUBCUT TID RF: 0 primidone 50 mg tablet 50 mg PO DAILY Qty: 90 RF: 0 Referrals: Kiran Reardon MD [Primary Care Provider] - Coding Level of Care Code ED Presentation Manager for Chg Fwd Exam Comprehensive
[2020-10-24 02:00] LABS: Basophils % 0.4 %; Eosinophils # 0.1 10^3/uL (0.0-0.8); Hematocrit 35.5 % (42.0-52.0); Hemoglobin 12.2 g/dL (11.7-16.6); Lymphocytes # 0.8 10^3/uL (0.8-4.8); Lymphocytes % 11.9 %; Mean Corpuscular HGB Conc 34.4 g/dL (30.0-36.0); Mean Corpuscular Hemoglobin 32.5 pg (28.0-34.0); Mean Corpuscular Volume 94.7 fL (80-94); Mean Platelet Volume 11.1 fL (7.4-10.4); Monocytes # 0.6 10^3/uL (0.2-0.9); Monocytes % 8.3 %; Neutrophils # 5.45 10^3/uL (1.8-7.7); Neutrophils % 77.5 %; Nucleated Red Blood Cells % 0 %; Platelet Count 125 10^3/cmm (130-400); Red Blood Count 3.75 10^6/uL (4.1-5.3); Red Cell Distribution Width 13.7 % (12.1-15.1)
[2020-10-24 02:14] LABS: INR 0.99 (0.8-1.2)
[2020-10-24 02:16] LABS: Partial Thromboplastin Time 21.3 SECONDS (23.9-36.7)
[2020-10-24 02:17] LABS: Lactate (Lactic Acid level) 3.4 mmol/L (0.5-2.2)
[2020-10-24] MEDS: ondansetron 2 mg/ML SDV 2 mL 4 MG IVP (02:18)
[2020-10-24 02:27] LABS: NT Pro B Type Natriuretic Pept 1902 pg/mL (0-125); Procalcitonin 0.38 ng/mL (0-0.5)
[2020-10-24] MEDS: sodium chloride 0.9% 1,000 ML 999 ML IV (02:31)
[2020-10-24 02:38] LABS: Alanine Aminotransferase < 5 U/L (0-41); Albumin Level 2.7 g/dL (3.5-5.2); Alkaline Phosphatase 135 IU/L (40-130); Anion Gap 17.7 (5-19); Aspartate Amino Transferase 6 U/L (0-40); Blood Urea Nitrogen 37 mg/dL (8-23); C Reactive Protein 12.6 mg/L (0.0-4.9); Calcium 7.9 mg/dL (8.5-10.5); Carbon Dioxide 25 mmol/L (22-29); Chloride 93 mmol/L (98-107); Glomerular Filtration Rate 4.7 mL/min (90-130); Glucose 127 mg/dL (65-115); Lipase 5 U/L (13-60); Magnesium 2.3 mg/dL (1.7-2.3); Osmolality Calculated 286 mOsm/kg (285-295); Sodium 133 mmol/L (136-145); Total Bilirubin 0.3 mg/dL (0.15-1.2); Total Protein 5.7 g/dL (6.6-8.7)
[2020-10-24 02:41] LABS: Bilirubin Urine 1+ (Negative); Blood Urine 2+ (Negative); Glucose Urine UA 2+ (Normal); Ketones Urine 1+ (Negative); Leukocyte Esterase Urine Negative (Negative); Nitrate Urine Negative (Negative); Protein Urine Neg (Negative); Urine Appearance Clear (CLEAR); Urine Color Yellow (Yellow); Urobilinogen Urine Norm (Negative); pH Urine 5 (5-7)
[2020-10-24 02:42] LABS: Add Urine Microscopic? YES; RBC Urine 0-4 /hpf (0-2); Squamous Epithelial Cell Urine RARE /hpf (0-5); WBC Urine RARE /hpf (0-5)
[2020-10-24 02:43] LABS: Add Urine Culture? No; Amorphous Sediment Urine 2+ /hpf
[2020-10-24 02:58] LABS: Potassium 2.7 mmol/L (3.5-5.1)
--- NOTE | 2020-10-24 03:22 | ECG_ITS ---
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 Measurements Intervals [place] Rate: 65 P: 49 PA: 243 QRS: -24 QRSD: 89 T: 76 QT: 446 QTc: 467 Interpretive Statements SINUS RHYTHM WITH FIRST DEGREE AV BLOCK WITH FREQUENT VENTRICULAR PREMATURE COMPLEXES BORDERLINE LEFT AXIS DEVIATION [QRS AXIS < -20] NONSPECIFIC T-WAVE ABNORMALITY Compared to ECG 08/12/2020 09:25:37 Ventricular premature complex(es) now present Sinus bradycardia no longer present T-wave abnormality still present Electronically Signed On 10-25-2020 22:51:59 CDT by Lucius Stapleton M.D. [id number]
[2020-10-24] MEDS: sodium chlor 0.45% +KCl 20 mEq 20 MEQ/1,000 ML BAG 75 MEQ IV ×2 (03:46→13:53)
[2020-10-24 04:36] LABS: Glucose Point of Care 85 mg/dL (70-110)
[2020-10-24 05:29] LABS: Troponin T (5th) Once 370 ng/L (0-15)
--- NOTE | 2020-10-24 06:00 | ECG_ITS ---
[facility] ED Test Date: 2020-10-24 Pat Name: Anshu Hurt Department: Room: 259 Gender: Male Palliative Care Specialist: : 1950 Requested By: Liset Schroeder Order Number: [id number] Murtaza MD: Gladys Hwang M.D. Measurements Intervals [place] Rate: 62 P: 63 SC: 249 QRS: -9 QRSD: 96 T: 76 QT: 462 QTc: 473 Interpretive Statements SINUS RHYTHM WITH FIRST DEGREE AV BLOCK NONSPECIFIC T-WAVE ABNORMALITY PROLONGED QT INTERVAL Compared to ECG 10/24/2020 04:02:04 Prolonged QT interval now present Ventricular premature complex(es) no longer present T-wave abnormality still present Electronically Signed On 10-27-2020 20:34:03 CDT by Gladys Hwang M.D. [id number]
--- NOTE | 2020-10-24 06:31 | P.HP_ITS ---
Providers/Chief Complaint Admitting Physician: Liset Schroeder MD Primary Care Provider: Irene Jones Chief Complaint: WEAK/LOW BP History of Present Illness Anshu Hurt is a 70 year old male who presented to the emergency room with chief complaint of weakness, nausea and vomiting, poor appetite and general malaise for about a week. He has not been sleeping well. He had some difficulty breathing this evening that ultimately led to him coming into the emergency room. He was shaking and did not feel like he can catch his breath. He had vomited this evening prior to this. He is normally followed at [facility] where his primary care provider is. He does have neurology specialist Dr. HURTADO in [place]. He states at baseline that he is able to walk but that he is not been able to walk without assistance for the last few days. He does indicate that he has had recent increase in the dose of one of his medications for his tremors prior to the onset of his symptoms getting worse. He has had maybe a 10 pound weight loss in the last week and 1/2 to 2 weeks. He is not able to take anything solid without having some vomitus. He is chronically on pancreatic enzymes. Patient himself denies it but patient's family reported that he has been sleeping excessively up to 20 or so hours a day and not been very active at all. In the emergency room he had multiple abnormal laboratory studies consistent with his diagnosis of chronic kidney disease but also had low potassium elevated BNP and troponin, elevated lactic acid. Suboptimal inspiration and possible cardiomegaly noted but no acute infiltrates. Clinically patient was extremely dry appearing. He is being admitted for further management and evaluation as indicated. He does have chronic kidney disease and is on peritoneal dialysis. Denies any abdominal pain or difficulty with his peritoneal dialysis catheter functioning. Review of Systems Const: Reports: change in appetite; Denies: fever(s) or chills Eyes: Denies: change in vision ENMT: Reports: dry mouth; Denies: throat pain or nasal congestion Card: Denies: chest pain, palpitations or edema Resp: Reports: dyspnea; Denies: productive cough or non-productive cough GI: Reports: nausea and vomiting; Denies: abdominal pain, diarrhea or constipation : Reports: other (Makes very little urine at baseline) Musc: Reports: muscle weakness Skin/Breast: Reports: dry skin; Denies: rash or sores Neuro: Reports: numbness in extremities, weakness in extremities and dizziness Psych: Reports: anxiety; Denies: depression Carlos/Lymph: Denies: easy bruising or easy bleeding Medications/Allergies Home Medications Medication Instructions Recorded Confirmed Last Taken Type allopurinol 300 mg tablet 300 mg PO QDAY 09/05/19 09/30/20 Unknown History atorvastatin 40 mg tablet 40 mg PO QDAY 09/05/19 09/30/20 Unknown History bupropion HCl 150 mg tablet,12 hr 150 mg PO BID 09/05/19 09/30/20 Unknown History sustained-release calcium carbonate 200 mg calcium 200 mg PO ONCE PRN tab 09/05/19 09/30/20 Unknown History (500 mg) chewable tablet [id number] 333 mg-133 tab PO ONCE tab 09/05/19 09/30/20 Unknown History mg-5 mg tablet docusate sodium 100 mg capsule 100 mg PO BID 09/05/19 09/30/20 Unknown History finasteride 5 mg tablet 5 mg PO QDAY 09/05/19 09/30/20 Unknown History furosemide 80 mg tablet 80 mg PO .COMPLEX 09/05/19 09/30/20 Unknown History hydralazine 100 mg tablet 100 mg PO TID 09/05/19 09/30/20 Unknown History insulin aspart U-100 100 unit/mL 15 unit SUBCUT TID 09/05/19 09/30/20 Unknown History (3 mL) subcutaneous pen insulin detemir U-100 100 unit/mL 40 unit SUBCUT BID ml 09/05/19 09/30/20 Unknown History subcutaneous solution lamotrigine 200 mg tablet 400 mg PO .evening tab 09/05/19 09/30/20 Unknown History levothyroxine 175 mcg capsule 175 mcg PO QDAY 09/05/19 09/30/20 Unknown History lipase 10,500-protease 1 cap PO ONCE cap 09/05/19 09/30/20 Unknown History 35,500-amylase 61,500 unit capsule,delayed rel metoprolol succinate 100 mg 100 mg PO BID 09/05/19 09/30/20 Unknown History tablet,extended release 24 hr mirtazapine 45 mg tablet 45 mg PO QDAY 09/05/19 09/30/20 Unknown History omeprazole 20 mg capsule,delayed 20 mg PO QDAY 09/05/19 09/30/20 Unknown History release potassium chloride 20 mEq 20 meq PO BID 09/05/19 09/30/20 Unknown History tablet,extended release pregabalin 225 mg capsule 225 mg PO BID 09/05/19 09/30/20 Unknown History risperidone 2 mg tablet 2 mg PO QDAY 09/05/19 09/30/20 Unknown History terazosin 1 mg capsule 1 mg PO QDAY 09/05/19 09/30/20 Unknown History tramadol 50 mg tablet 50 mg PO Q6H PRN 09/05/19 09/30/20 Unknown History trazodone 100 mg tablet 200 mg PO QDAY tab 09/05/19 09/30/20 Unknown History primidone 50 mg tablet 50 mg PO DAILY #90 tab 05/08/20 09/30/20 Unknown Rx Allergies Allergy/AdvReac Type Severity Reaction Status Date / Time No Known Allergies Allergy Verified 10/24/20 01:26 PFSH Acute PFSH: Medical History (Updated 10/24/20 @ 08:12 by Liset Schroeder MD) Depression Diabetes Gout Hyperlipidemia Hypertension Hypothyroidism (acquired) Pancreatitis takes chronic pancrease Peritoneal dialysis catheter in place Stage 5 chronic kidney disease Tremor Vitiligo Surgical History (Updated 10/24/20 @ 06:43 by Liset Schroeder MD) History of appendectomy History of carpal tunnel release left wrist 1975 History of cholecystectomy Family History Other CAD (coronary artery disease) Cancer Diabetes Hypertension Denies family history of Stroke Social History (Updated 10/24/20 @ 06:43 by Liset Schroeder MD) Smoking and tobacco status: former smoker Quit status (tobacco): has quit using tobacco Year quit tobacco: 1992 Alcohol intake: never Household members: spouse Marital status: Vitals/I&O/Wt Last Vital Signs Temp 97.6 F 10/24/20 04:00 Pulse 63 10/24/20 04:05 Resp 16 10/24/20 04:05 BP 114/67 10/24/20 04:05 Pulse Ox 96 10/24/20 04:05 10/23/20 10/23/20 10/24/20 14:59 22:59 06:59 Intake Total 1000 / 1000 Output Total 400 / 400 Balance 600 / 600 Weight last 48 hrs Weight 88.904 kg Physical Exam Const: OTHER: Alert, oriented x3, cooperative HENMT: OTHER: Normocephalic atraumatic, nasopharynx is clear, oropharynx is extremely dry, lips are chapped, no lesions are noted Eye: OTHER: Pupils equally round and reactive to light, extraocular movements are intact Neck/C-Spine: OTHER: Supple Resp: OTHER: Clear to auscultation bilaterally, no rales, rhonchi or wheezes noted, no accessory muscle use noted Cardio: OTHER: Regular rate and rhythm, no murmurs gallops or rubs GI: OTHER: Abdomen soft, mild tenderness medially to PD catheter insertion site and an area where there is a bruise that I suspect is from insulin administration. Skin is thickened in this area but no erythema or warmth. PD catheter site is intact also without any erythema or other changes noted. Patient has glucose monitoring device in his right quadrant with the PD catheter in the left quadrant. Bowel sounds are positive. : OTHER: Normal external genitalia Extremity: NARRATIVE EXTREMITY EXAM: Muscle wasting is noted, no pitting edema, some bony hypertrophy but no acutely inflamed joints identified Neuro: OTHER: Face symmetric, speech clear although slow to answer questions, moves all extremities, strength is equal in both arms and legs proximally and distally, gait was not assessed Psych: OTHER: Flat affect flat affect Skin: OTHER: Skin is dry, slightly doughy, pale Data : 10/24/20 01:42 10/24/20 01:42 Micro: Microbiology 10/24/20 02:20 Blood Culture - Preliminary Blood SPECIMEN COLLECTED 10/24/20 01:42 Blood Culture - Preliminary Blood SPECIMEN COLLECTED A&P Assessment and plan (1) Weakness: Status: Acute (2) Dehydration: Status: Acute (3) Acute hypokalemia: Status: Acute (4) Nausea & vomiting: Status: Acute Qualifiers: Vomiting type: unspecified Vomiting Intractability: intractable Qualified Code(s): R11.2 - Nausea with vomiting, unspecified (5) Excessive weight loss: Status: Acute (6) Stage 5 chronic kidney disease: Status: Chronic (7) Diabetes: Status: Chronic Qualifiers: Diabetes mellitus type: type 2 Diabetes mellitus manager intermediate insulin use: with [facility] use Diabetes mellitus complication status: with kidney complications Diabetes mellitus complication detail: with chronic kidney disease Chronic kidney disease stage: on chronic dialysis Qualified Code(s): E11.22 - Type 2 diabetes mellitus with diabetic chronic kidney disease; N18.6 - End stage renal disease; 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; Z99.2 - Dependence on renal dialysis (8) Hypertension: Status: Chronic Qualifiers: Hypertension type: essential hypertension Qualified Code(s): I10 - Essential (primary) hypertension (9) Hyperlipidemia: Status: Chronic Qualifiers: Hyperlipidemia type: unspecified Qualified Code(s): E78.5 - Hyperlipidemia, unspecified (10) Hypothyroidism (acquired): Status: Chronic (11) Parkinsonian tremor: Status: Chronic Additional A&P Information Inpatient admission IV fluids at a low rate Give one-time dose of oral potassium Nephrology consultation for peritoneal dialysis orders Monitor abdominal examination for clinical changes, thus far no abdominal pain or difficulty or changes with PD nor fever have been noted. Suspect symptoms are due to volume depletion plus or minus recently increased medication for his tremors currently. See if we can clarify medication for his tremors that was recently increased prior to the onset of the symptoms as well as confirm rest of medication list today Serial cardiac enzymes and EKGs Echocardiogram given initial troponin elevation Check lipid panel and hemoglobin A1c Check TSH Check sed rate and CRP Follow-up pending blood cultures Currently hold home diuretics and most antihypertensives Lower dose of beta-blockade Monitor blood sugars Sliding scale insulin currently As GI symptoms improve can consider reinitiation of long-acting insulin Antiemetics Monitor overall volume status closely although need to note that patient makes very little urine regularly Address home medication list appropriately when available Physical therapy evaluation Subcutaneous heparin for DVT prophylaxis Supportive care otherwise Plans were discussed with patient and he was given an opportunity to ask some questions Full code Attestations Medical Necessity Statement*: Anticipated stay greater than 2 midnights in a gentleman with multiple medical issues as noted above presenting with clinical evidence of some significant dehydration, several days of new symptoms including nausea, vomiting, weight loss and inability to get himself around. He has several laboratory abnormalities as noted. Given comorbid conditions and abnormalities identified, requires inpatient management for stabilization as described. Coding Level of Care Code Acute Winder Contort Operator for g Fwd Diagnoses Weakness R53.1 Dehydration E86.0 Acute hypokalemia E87.6 Nausea & vomiting R11.2 Vomiting type: unspecified Vomiting Intractability: intractable Excessive weight loss R63.4 Stage 5 chronic kidney disease N18.5 Diabetes E11.22; N18.6; Z79.4; Z99.2 Diabetes mellitus type: type 2 Diabetes mellitus manager intermediate insulin use: with manager intermediate use Diabetes mellitus complication status: with kidney complications Diabetes mellitus complication detail: with chronic kidney disease Chronic kidney disease stage: on chronic dialysis Hypertension I10 Hypertension type: essential hypertension Hyperlipidemia E78.5 Hyperlipidemia type: unspecified Hypothyroidism (acquired) E03.9 Parkinsonian tremor G20
[2020-10-24 08:00] LABS: Troponin(5th) Baseline 316 ng/L (0-15)
--- NOTE | 2020-10-24 08:03 | USCV_ITS ---
Anshu Hurt Age: 70 Gender: M : 1950 Exam Date: 10/24/2020 13:05 Ordering Phys: Liset Schroeder MD Technologist: Yasir Juarez Exam Location: [facility] [place] Indication: ELEVATED TROPONIN AND PROGRESSIVE WEAKNESS IN CKD/DM PT BP: 91 / 52 HR: 59 Rhythm: Other Technical Quality: Technically difficult study MEASUREMENTS (Male / Female) Normal Values 2D ECHO LV Diastolic Diameter PLAX 3.9 cm 4.2 - 5.9 / 3.9 - 5.3 cm LV Systolic Diameter PLAX 2.5 cm IVS Diastolic Thickness 1.5 cm 0.6 - 1.0 / 0.6 - 0.9 cm IVS Systolic Thickness 1.9 cm LVPW Diastolic Thickness 1.5 cm 0.6 - 1.0 / 0.6 - 0.9 cm LVPW Systolic Thickness 1.6 cm LVOT Diameter 2.0 cm LV Ejection Fraction 2D Teich 67.6 % LV Ejection Fraction MOD 2C 56.5 % LV Ejection Fraction 2C AL 56.8 % LA Diameter 4.0 cm LA Width 2.7 cm LA Height 4.8 cm RA Width 2.7 cm RA Height 3.6 cm Aorta at Sinotubular Diameter 2.9 cm M-MODE LV Diastolic Diameter MM 5.3 cm 4.2 - 5.9 / 3.9 - 5.3 cm LV Systolic Diameter MM 3.6 cm LV Ejection Fraction MM Teich 61.4 % IVS Diastolic Thickness MM 0.9 cm 0.6 - 1.0 / 0.6 - 0.9 cm IVS Systolic Thickness MM 1.3 cm LVPW Diastolic Thickness MM 1.0 cm 0.6 - 1.0 / 0.6 - 0.9 cm LVPW Systolic Thickness MM 1.6 cm Aortic Annulus Diameter 3.5 cm LA Ao Ratio MM 1.2 MV E Point Septal Separation 0.7 cm DOPPLER AV Peak Velocity 131.0 cm/s LVOT Peak Velocity 73.0 cm/s AV Area Cont Eq vti 2.5 cm squared AV Area Cont Eq pk 1.8 cm squared MV Area PHT 2.7 cm squared Mitral E to A Ratio 0.7 MV E' Velocity 34.8 cm/s Mitral E to MV E' Ratio 6.7 Mitral E to LV E' Lateral Ratio 6.8 Mitral E to LV E' Septal Ratio 6.7 TR Peak Velocity 126.0 cm/s TR Peak Gradient 6.4 mmHg Right Atrial Pressure 3.0 mmHg Pulmonary Artery Systolic Pressu 9.4 mmHg PV Peak Velocity 77.0 cm/s RV Acceleration Time 0.1 s RV Ejection Time 0.3 s RV AcT/ET 0.5 FINDINGS Left Ventricle Normal left ventricular size and systolic function, EF 58 %. No regional wall motion abnormalities. Mild left ventricular hypertrophy. Grade I/IV diastolic dysfunction (abnormal relaxation filling pattern), normal to mildly elevated filling pressures. Right Ventricle The right ventricle is normal in size and function. Right Atrium The right atrium is normal in size. Left Atrium Mildly increased left atrial size. Mitral Valve Thickened mitral valve. Trace mitral valve regurgitation. Aortic Valve Thickened aortic valve. Tricuspid Valve No gross abnormalities noted Pulmonic Valve Trace pulmonary valve regurgitation. Pericardium Normal pericardium without effusion. Aorta Normal ascending aorta dimension. CONCLUSIONS Normal left ventricular size and systolic function, EF 58 %. No regional wall motion abnormalities. Mild left ventricular hypertrophy. Grade I/IV diastolic dysfunction (abnormal relaxation filling pattern), normal to mildly elevated filling pressures. Mildly increased left atrial size. Thickened mitral valve. Trace mitral valve regurgitation. Thickened aortic valve. Trace pulmonary valve regurgitation. There is no pericardial effusion. There are no intracardiac masses. No previous study is available for comparison. Dr Lucius Stapleton MD FAC (Electronically Signed) Final Date: 24 October 2020 19:15 S
[2020-10-24] MEDS: heparin 5,000 unit/mL INJ 1 mL 5000 UNIT SUBCUT ×2 (09:06→21:53)
[2020-10-24] MEDS: metoprolol succinate ER (24 HR) 25 mg Tablet PO (09:06)
[2020-10-24] MEDS: potassium chloride ER 20 mEq Tablet PO (09:06)
[2020-10-24 09:20] LABS: C Reactive Protein 10.6 mg/L (0.0-4.9); Lactate (Lactic Acid level) 2.2 mmol/L (0.5-2.2)
[2020-10-24 09:54] LABS: Troponin 5 2HR 308.8 ng/L (0-15); Troponin 5 2HR Delta -7.2 ABS# (0-10)
--- NOTE | 2020-10-24 10:27 | PC.CHAP ---
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 [] Patient/Family/Request visit [] Outpatient visit [] Follow-up visit [] Physician referral [] Code/Alert [x] Routine visit [] Staff referral [] Actively dying [] Patient sleeping [] Family support [] [] Out of room [] Palliative care [] [x] Receiving care in room [] Pre-surgical visit [] Trauma [x] Long length of stay [] ICU visit [] Other: Relational/Emotional Strength [x] Patient feels connected with others/family/visitors/staff [] Distress [] Loneliness/isolation [] Abandonment Spirituality of Patient [x] Person of Chely [] Attends Yazdanism of their Chely [x] Believes in Prayer [] Reads Bible or Synagogue materials [] There are Spiritual issues to be addressed Carrier Blower Interventions [x] Prayer [x] Active listening [x] Non-anxious presence [x] Spiritual/emotional support [] Crisis/trauma care [x] Spiritual counseling [] Bereavement support [] Provided bereavement packet [] Provided Bible/devotional materials [] Provided toy/stuffed animal, coloring book to patient or family member [] Provided Communion [] Anointing/[place] [] Salvation [x] Completed spiritual assessment [] Other: Impact on Illness or Injury [] Angry [] Fearful [x] Anxious [] Often cries [] Exhaustion [] Unable to work [] Unable to attend quaker [] Unable to walk/stand [] Unable to read [] Unable to drive [] Unable to eat/drink [] Unable to sleep [] Unable to be with family [] Patient intubated [] Other: Summary he` is in pain, not feeling good, doesn't know the out come at this point has a negative attitude Time spent with patient 10 mins
[2020-10-24 10:28] LABS: Erythrocyte Sedimentation Rate 45 mm/hr (0-10)
[2020-10-24 11:58] LABS: Glucose Point of Care 247 mg/dL (70-110)
--- NOTE | 2020-10-24 12:07 | P.PN_ITS ---
Subjective Subjective: Interval history: Patient was seen and examined at the bedside, he is stating that recently primidone dose was increased because of his resting tremors, he takes pancreatic enzymes for recurrent pancreatitis, never smoked or drank alcohol No diagnosis of autoimmune pancreatitis Patient is denying fever, dysuria he does make some urine, no recent cough, sputum production, headache, neck pain Vitals/I&O/Wt Last Vital Signs Temp 97.8 F 10/24/20 11:13 Pulse 63 10/24/20 11:13 Resp 18 10/24/20 11:13 BP 91/52 10/24/20 11:13 Pulse Ox 95 10/24/20 11:13 10/23/20 10/24/20 10/24/20 22:59 06:59 14:59 Intake Total 1000 / 1000 360 / 360 Output Total 400 / 400 Balance 600 / 600 360 / 360 Weight last 48 hrs Weight 88.904 kg Physical Exam Narrative: EXAM NARRATIVE: Patient was laying comfortably in his bed Saturating well on room air Does not look fluid overloaded, mild signs of clinical dehydration S1, S2 no murmur appreciated I did not appreciate resting tremors Abdomen distended central obesity tenderness just inferior to peritoneal dialysis catheter no active drainage, tenderness on deep palpation, no guarding or rigidity EOMI, PERRLA No neurological deficits No joint swelling Lower extremity no edema gangrene ulcer Data : 10/24/20 01:42 10/24/20 01:42 Micro: Microbiology 10/24/20 02:20 Blood Culture - Preliminary Blood SPECIMEN COLLECTED 10/24/20 01:42 Blood Culture - Preliminary Blood SPECIMEN COLLECTED A&P Assessment and plan (1) Dehydration: Status: Acute (2) Diabetes: Status: Chronic Qualifiers: Diabetes mellitus type: type 2 Diabetes mellitus salvage determiner insulin use: with salvage determiner use Diabetes mellitus complication status: with kidney complications Diabetes mellitus complication detail: with chronic kidney disease Chronic kidney disease stage: on chronic dialysis Qualified Code(s): E11.22 - Type 2 diabetes mellitus with diabetic chronic kidney disease; N18.6 - End stage renal disease; Z79.4 - senior care (current) use of insulin; Z99.2 - Dependence on renal dialysis (3) Hypothyroidism (acquired): Status: Chronic (4) Nausea & vomiting: Status: Acute Qualifiers: Vomiting Intractability: intractable Vomiting type: unspecified Qualified Code(s): R11.2 - Nausea with vomiting, unspecified (5) Acute hypokalemia: Status: Acute (6) Excessive weight loss: Status: Acute (7) Essential tremor: Status: Acute Additional A&P Information Dehydration secondary to recurrent vomiting Concern for diabetic gastroparesis No active signs of infection, will obtain CT abdomen pelvis without contrast No active vomiting Patient is denying diarrhea able to pass flatus Mild tenderness inferior to peritoneal dialysis catheter Does not meet sepsis criteria, Continue IV fluid hydration Procalcitonin not remarkably high noticed moderately high ESR As noted in history of pancreatitis currently lipase is 5 we will follow up with CT abdomen patient takes pancreatic enzymes No active signs of COVID-19 pneumonia Hypokalemia secondary to vomiting Judicious use of potassium secondary to peritoneal dialysis for end-stage renal disease Hypothyroidism: Continue levothyroxine 175 mcg for now Essential tremors Patient is stating that recently his primidone dose was increased No acute exacerbation Peritoneal dialysis dependent Telemetry nephrology consult Renal dialysis diet DVT prophylaxis Heparin Full code Attestations 2 Medical Necessity Statement*: Continue inpatient hospitalization for dehydration Time Spent in Patient Care: 30mins Coding Level of Care Code Acute Able Bodied Watchman for [facility] Fwd Diagnoses Dehydration E86.0 Diabetes E11.22; N18.6; Z79.4; Z99.2 Diabetes mellitus type: type 2 Diabetes mellitus salvage determiner insulin use: with salvage determiner use Diabetes mellitus complication status: with kidney complications Diabetes mellitus complication detail: with chronic kidney disease Chronic kidney disease stage: on chronic dialysis Hypothyroidism (acquired) E03.9 Nausea & vomiting R11.2 Vomiting Intractability: intractable Vomiting type: unspecified Acute hypokalemia E87.6 Excessive weight loss R63.4 Essential tremor G25.0
--- NOTE | 2020-10-24 12:27 | CT_ITS ---
WS: [id number] CT ABDOMEN PELVIS TECHNIQUE: Noncontrast CT of the abdomen and pelvis with coronal and sagittal reformatted images. CLINICAL INFORMATION: Recurrent vomiting COMPARISON: CT 6 27,012 DLP: 1869.[address] scans at [facility] use at least one of these dose optimization techniques: automat ed exposure control; mA and/or kV adjustment per patient size (includes targeted exams where dose is matched to clinical indication); or iterative reconstruction. FINDINGS: Lung bases are well aerated. Trace right pleural effusion. Small amount of perihepatic ascites. Large amount of food products in the stomach with air-fluid level. Normal small and large bowel. No eviden ce of small or large bowel obstruction. Splenic artery calcification. Prior cholecystectomy. Evidence of chronic pancreatitis with pancreatic atrophy and calcifications. Calcified abdominal aorta. Small infrarenal abdominal aortic aneurysm is not significant changed since 2011 measuring 2.8 x 2.2 cm AP by transverse. No abdominal or pelvic l ymphadenopathy. Suprapubic catheter. No free fluid in the pelvis. Small amount of ascites in the righ t pericolic gutter. Adrenal glands are normal. No hydronephrosis. Renal cortical atrophy. Bilateral r enal cysts. CT/CT abdomen pelvis wo con [id number] IMPRESSION: 1. No evidence of small or large bowel obstruction. 2. Prominent distended stomach with food products and air-fluid level. 3. Small amount of perihepatic ascites. Trace right pleural fluid. 4. Evidence of chronic pancreatitis with pancreatic calcifications. No evidenc e of acute pancreatitis. 5. Small infrarenal abdominal aortic aneurysm is unchanged. 6. Suprapubic catheter.
[2020-10-24] MEDS: Dianeal low Ca w/2.5% dex 2,000 mL Bag 2000 ML INTRAPERIT ×3 (13:52→23:53)
--- NOTE | 2020-10-24 14:02 | PC.PT ---
PT eval attempted. Patient off of floor for tests. Will attempt again in a.m.
[2020-10-24 15:50] LABS: Troponin 5 6HR 285.8 ng/L (0-15); Troponin 5 6HR Delta -30.2 ng/L (0-12)
--- NOTE | 2020-10-24 17:14 | PM.CONSULT ---
Providers/Reason For Consult Consulting Physican/Specialty*: Nephro Reason for Consult*: Evaluate for PD mgmt Attending Physician: Rashi Last MD Primary Care Provider: Irene Jones History of Present Illness History of Present Illness Mr. Hurt presents to our facility with weakness, fatigue, poor oral intake, nausea and vomiting, malaise. Symptoms have been progressing for about 1 week. Recently it was noted that his Parkinson-like tremor has been getting worse, he was apparently started on a new medicine to help with this however he cannot remember the name. He has been on PD now for roughly 1 year. He did hemodialysis for a few weeks prior to this. He typically has a cycler, with a night prescription of 9 hours, roughly 3 exchanges, no last fill. She somewhat vague about the details and cannot recall the absolute volumes. No extremity edema, shortness of breath or other hypervolemic symptoms. No myoclonus, dysgeusia,, seizure activity etc. Review of Systems Narrative: ROS - 12 point review of systems completed per HPI and subjective assessment, this includes Constitutional: Weakness, fatigue Respiratory: No SOB on exertion, comfortable at rest CardioVasc: No chest pain, palpitations Gastrointestinal: No nausea, no vomiting Neurological: No seizures, no AMS Derm: No new rashes, lesions or wounds Immunological: No seasonal and no food allergies Meds/Allergies Home Medications and Allergies Home Medications Medication Instructions Recorded Confirmed Last Taken Type atorvastatin 40 mg tablet 40 mg PO DAILY@2100 09/05/19 10/24/20 Unknown History docusate sodium 100 mg capsule 100 mg PO BID 09/05/19 10/24/20 Unknown History furosemide 80 mg tablet 80 mg PO .COMPLEX 09/05/19 10/24/20 Unknown History insulin aspart U-100 100 unit/mL See Rx Instructions .ROUTE .COMPLEX 09/05/19 10/24/20 Unknown History (3 mL) subcutaneous pen levothyroxine 175 mcg capsule 175 mcg PO DAILY 09/05/19 10/24/20 Unknown History lipase 10,500-protease See Rx Instructions .ROUTE 09/05/19 10/24/20 Unknown History 35,500-amylase 61,500 unit .COMPLEX cap capsule,delayed rel omeprazole 20 mg capsule,delayed 20 mg PO BID 09/05/19 10/24/20 Unknown History release potassium chloride 20 mEq 20 meq PO DAILY 09/05/19 10/24/20 Unknown History tablet,extended release aspirin 81 mg PO DAILY@209910/24/20 10/24/20 Unknown History carbidopa-levodopa 1 tab PO TID 10/24/20 10/24/20 Unknown History clopidogrel 75 mg PO DAILY@209910/24/20 10/24/20 Unknown History ergocalciferol (vitamin D2) 1,250 mcg PO Q7D 10/24/20 10/24/20 Unknown History insulin glargine [Basaglar KwikPen 25 - 40 unit SUBCUT . DIRECTED 10/24/20 10/24/20 Unknown History U-100 Insulin] magnesium oxide [MagOx] 400 mg PO DAILY 10/24/20 10/24/20 Unknown History metoprolol succinate 50 mg PO DAILY 10/24/20 10/24/20 Unknown History pregabalin [Lyrica] 100 mg PO BEDTIME@209910/24/20 10/24/20 10/23/20 History risperidone [Risperdal] 1 mg PO DAILY 10/24/20 10/24/20 Unknown History sevelamer carbonate [Renvela] See Rx Instructions .ROUTE .COMPLEX 10/24/20 10/24/20 Unknown History terazosin 5 mg PO DAILY 10/24/20 10/24/20 Unknown History Allergies Allergy/AdvReac Type Severity Reaction Status Date / Time No Known Allergies Allergy Verified 10/24/20 10:20 Current Medications Current Medications Generic Name Dose Route Start Last Admin Trade Name Freq PRN Reason Stop Dose Admin Heparin Sodium (Beef Lung) 5,000 unit 10/24/20 09:00 10/24/20 09:06 Heparin 5,000 Unit/Ml Inj 1 Ml SUBCUT 5,000 unit Q12H SHAMAR Administration Potassium Chloride/Sodium Chloride 20 meq in 1,000 mls @ 75 mls/hr 10/24/20 03:15 10/24/20 13:53 Sodium Chlor 0.45% +Kcl 20 Meq IV 75 mls/hr .[id number] SHAMAR Administration Insulin Aspart 0 unit 10/24/20 12:00 10/24/20 12:22 Insulin Aspart 100 Unit/1 Ml SUBCUT 6 unit TIDWM SHAMAR Administration Protocol Metoprolol Succinate 25 mg 10/24/20 09:00 10/24/20 09:06 Metoprolol Succinate Er (24 Hr) 25 Mg Tablet PO 25 mg DAILY SHAMAR Administration Peritoneal Dialysis Solution 2,000 ml 10/24/20 11:00 10/24/20 13:52 Dianeal Low Ca W/2.5% Dex 2,000 Ml Bag INTRAPERIT 2,000 ml Q5H SHAMAR Administration PFSH Acute PFSH: Medical History (Updated 10/24/20 @ 12:20 by Rashi Last MD) Depression Diabetes Gout Hyperlipidemia Hypertension Hypothyroidism (acquired) Pancreatitis takes chronic pancrease Peritoneal dialysis catheter in place Stage 5 chronic kidney disease Tremor Vitiligo Surgical History (Updated 10/24/20 @ 06:43 by Liset Schroeder MD) History of appendectomy History of carpal tunnel release left wrist 1974 History of cholecystectomy Family History Other CAD (coronary artery disease) Cancer Diabetes Hypertension Denies family history of Stroke Social History (Updated 10/24/20 @ 06:43 by Liset Schroeder MD) Smoking and tobacco status: former smoker Quit status (tobacco): has quit using tobacco Year quit tobacco: 1992 Alcohol intake: never Household members: spouse Marital status: Vitals/I&O/Wt Last Vital Signs Temp 97.3 F L 10/24/20 15:25 Pulse 56 L 10/24/20 15:25 Resp 18 10/24/20 15:25 BP 123/76 10/24/20 15:25 Pulse Ox 97 10/24/20 15:25 10/24/20 10/24/20 10/24/20 06:59 14:59 22:59 Intake Total 1000 / 1000 1358.75 / 1358.75 Output Total 400 / 400 Balance 600 / 600 1358.75 / 1358.75 Weight last 48 hrs Weight 88.904 kg Physical Exam Narrative: EXAM NARRATIVE: Constitutional: Awake, comfortable HEENT: Wet mucosa, no jvp, non icteric Lungs: Bilaterally clear without discernible wheeze, rales in all lung zones CVS: S1 S2, no murmurs Abdo: Soft, BS ok, exit site looks good Ext 4: Minimal edema, peripheral perfusion with no cyanosis Neurological: Grossly non-focal Data Micro: Micro: Microbiology 10/24/20 02:20 Blood Culture - Pr eliminary Blood SPECIMEN COLLEC JACQUELINE 10/24/20 01:42 Blood Culture - Pr eliminary Blood SPECIMEN DAIN PHILLIPS A&P Additional A&P Information 1. ESRD on PD While in the hospital I will dialyze him using a CAPD prescription of 5 exchanges a day split roughly evenly, 2 L of 2.5% solution. 2. Electrolytes, did have potassium replaced this morning. Electrolytes otherwise look pretty reasonable. Will check a.m. levels. 3. Weakness. I did tell him that on the dialysis could present with the symptoms, he does note a recent KT/V was adequate, which I do not doubt however if his symptoms of weakness become recalcitrant to other treatments, it would be worth considering hemodialysis for a few weeks to see if this helps. 4. Chronic issues associated with end-stage renal disease These will be addressed in the outpatient clinic including titration of phosphorus medication, anemia management, secondary hyperparathyroidism etc. Mejia Rizvi MD Nephrology [phone] Patient seen and examined via telemedicine, with the assistance of the bedside RN > 25 min spent in evaluation and mgmt of patient Consult Attestations Medical Necessity Statement: Eval for ESRD and PD mgmt Coding Level of Care Code Acute Cable Cutter And Swager for Amarag Vick
[2020-10-24 17:25] LABS: Glucose Point of Care 192 mg/dL (70-110)
[2020-10-24 22:48] LABS: Glucose Point of Care 264 mg/dL (70-110)
[2020-10-25] VITALS (10 sets, daily range): BP systolic 102–141; BP diastolic 59–77; PULSE 54–81; RESP 15–18; TEMP 36.4–36.7; O2SAT 95–97
[2020-10-25] MEDS: sodium chlor 0.45% +KCl 20 mEq 20 MEQ/1,000 ML BAG 75 MEQ IV ×2 (03:23→17:23)
[2020-10-25] MEDS: Dianeal low Ca w/2.5% dex 2,000 mL Bag 2000 ML INTRAPERIT ×4 (04:59→20:15)
[2020-10-25 06:22] LABS: Basophils % 0.4 %; Eosinophils # 0.1 10^3/uL (0.0-0.8); Eosinophils % 2.3 %; Hematocrit 29.4 % (42.0-52.0); Hemoglobin 9.8 g/dL (11.7-16.6); Lymphocytes # 1.4 10^3/uL (0.8-4.8); Lymphocytes % 26.2 %; Mean Corpuscular HGB Conc 33.3 g/dL (30.0-36.0); Mean Corpuscular Hemoglobin 31.8 pg (28.0-34.0); Mean Corpuscular Volume 95.5 fL (80-94); Mean Platelet Volume 11.3 fL (7.4-10.4); Monocytes # 0.4 10^3/uL (0.2-0.9); Neutrophils # 3.25 10^3/uL (1.8-7.7); Neutrophils % 62.1 %; Nucleated Red Blood Cells % 0 %; Platelet Count 110 10^3/cmm (130-400); Red Blood Count 3.08 10^6/uL (4.1-5.3); Red Cell Distribution Width 13.6 % (12.1-15.1); White Blood Count 5.2 10^3/uL (4.0-10.0)
[2020-10-25 06:34] LABS: Glucose Point of Care 259 mg/dL (70-110)
[2020-10-25 06:47] LABS: Blood Urea Nitrogen 35 mg/dL (8-23); Calcium 7.2 mg/dL (8.5-10.5); Carbon Dioxide 23 mmol/L (22-29); Chloride 96 mmol/L (98-107); Glomerular Filtration Rate 5.5 mL/min (90-130); Glucose 212 mg/dL (65-115); Osmolality Calculated 284 mOsm/kg (285-295); Phosphorus 3.7 mg/dL (2.5-4.5); Sodium 130 mmol/L (136-145); Thyroid Stimulating Hormone 0.24 uIU/mL (0.27-4.20)
[2020-10-25 06:50] LABS: Estmated Average Glucose 100; Hemoglobin A1C 5.1 % (4.0-6.0)
[2020-10-25 07:22] LABS: Chol HDL Ratio 2.26 mg/dL (1.0-5.00); Cholesterol 79 mg/dL (0-200); HDL Cholesterol 35 mg/dL (60-100); LDL Cholesterol Calculated 10 mg/dL (50-129); LDL HDL Ratio 0.29 RATIO (0.00-3.22); Triglycerides 170 mg/dL (0-150)
[2020-10-25 07:34] LABS: Anion Gap 14.3 (5-19); Potassium 3.3 mmol/L (3.5-5.1)
[2020-10-25] MEDS: metoprolol succinate ER (24 HR) 25 mg Tablet PO (09:20)
[2020-10-25] MEDS: heparin 5,000 unit/mL INJ 1 mL 5000 UNIT SUBCUT ×2 (09:20→21:59)
[2020-10-25 11:42] LABS: Glucose Point of Care 211 mg/dL (70-110)
[2020-10-25] MEDS: acetaminophen 325 mg Tablet 650 MG PO (13:11)
--- NOTE | 2020-10-25 15:46 | PM.PN ---
Subjective Subjective: Interval history: Remains weak, reports that nausea and vomiting is marginally improved. Peritoneal dialysis is going well, uneventful. Both in and out flow is painless, effluent is clear. Potassium was replaced. No extremity edema, shortness of breath or other hypervolemic symptoms. No other additional new uremic symptoms. Vitals/I&O/Wt Last Vital Signs Temp 97.5 F L 10/25/20 11:48 Pulse 63 10/25/20 14:00 Resp 18 10/25/20 11:48 BP 113/69 10/25/20 11:48 Pulse Ox 96 10/25/20 11:48 10/25/20 10/25/20 10/25/20 06:59 14:59 22:59 Intake Total 1000 / 2358.75 480 / 480 Output Total 200 / 200 Balance 800 / 2158.75 480 / 480 Weight last 48 hrs Weight 88.904 kg Weight 88.904 kg Physical Exam Narrative: EXAM NARRATIVE: Constitutional: Awake, comfortable HEENT: Wet mucosa, no jvp, non icteric Lungs: Bilaterally clear without discernible wheeze, rales in all lung zones CVS: S1 S2, no murmurs Abdo: Soft, BS ok, exit site looks good Ext 4: Minimal edema, peripheral perfusion with no cyanosis Neurological: Grossly non-focal Data : 10/25/20 06:00 10/25/20 06:00 Micro: Microbiology 10/24/20 02:20 Blood Culture - Preliminary Blood NEGATIVE TO DATE 10/24/20 01:42 Blood Culture - Preliminary Blood NEGATIVE TO DATE A&P Additional A&P Information 1. ESRD on PD While in the hospital I will dialyze him using a CAPD prescription of 5 exchanges a day split roughly evenly, 2 L of 2.5% solution. Rx working well, continue same prescription 2. Electrolytes, did have potassium replaced this morning. Electrolytes otherwise look pretty reasonable. Will check a.m. levels. 3. Weakness. This may be a medication effect, his outpatient psychoactive medication has not been held. We are monitoring closely. I do have some concerns that he is under dialyzed as these will be the symptoms of renal failure also. 4. Chronic issues associated with end-stage renal disease These will be addressed in the outpatient clinic including titration of phosphorus medication, anemia management, secondary hyperparathyroidism etc. Mejia Rizvi MD Nephrology [phone] Patient seen and examined via telemedicine, with the assistance of the bedside RN > 25 min spent in evaluation and mgmt of patient Attestations Medical Necessity Statement*: Mgmt of ESRD Coding Level of Care Code Acute Control System Computer Scientist for Anatoliy Hickman
[2020-10-25 17:35] LABS: Glucose Point of Care 274 mg/dL (70-110)
--- NOTE | 2020-10-25 20:33 | P.PN_ITS ---
Subjective Subjective: Interval history: nausea and vomiting midly improved, continues to c/o generalized weakness. Medications: Reviewed: Yes Vitals/I&O/Wt Last Vital Signs Temp 97.5 F L 10/25/20 19:53 Pulse 68 10/25/20 19:53 Resp 18 10/25/20 19:53 BP 127/77 10/25/20 19:53 Pulse Ox 95 10/25/20 19:53 10/25/20 10/25/20 10/25/20 06:59 14:59 22:59 Intake Total 1000 / 2358.75 480 / 480 5680 / 6160 Output Total 200 / 200 4200 / 4200 Balance 800 / 2158.75 480 / 480 1480 / 1960 Weight last 48 hrs Weight 88.904 kg Weight 88.904 kg Physical Exam Narrative: EXAM NARRATIVE: GEN: Awake, alert and oriented, no acute distress CVS: S1S2 N RS: CTA B/L Abd: Soft, nt/nd , bs+ TRANSPORTATION DEPARTMENT SUPERVISOR: no focal neuro deficits Data : 10/25/20 06:00 10/25/20 06:00 Micro: Microbiology 10/24/20 02:20 Blood Culture - Preliminary Blood NEGATIVE TO DATE 10/24/20 01:42 Blood Culture - Preliminary Blood NEGATIVE TO DATE A&P Assessment and plan (1) Dehydration: Status: Acute (2) Diabetes: Status: Chronic Qualifiers: Diabetes mellitus type: type 2 Diabetes mellitus custodial insulin use: with long term care social worker use Diabetes mellitus complication status: with kidney complications Diabetes mellitus complication detail: with chronic kidney disease Chronic kidney disease stage: on chronic dialysis Qualified Code(s): E11.22 - Type 2 diabetes mellitus with diabetic chronic kidney disease; N18.6 - End stage renal disease; Z79.4 - long term care social worker (current) use of insulin; Z99.2 - Dependence on renal dialysis (3) Hypothyroidism (acquired): Status: Chronic (4) Nausea & vomiting: Status: Acute Qualifiers: Vomiting Intractability: intractable Vomiting type: unspecified Qualified Code(s): R11.2 - Nausea with vomiting, unspecified (5) Acute hypokalemia: Status: Acute (6) Excessive weight loss: Status: Acute (7) Essential tremor: Status: Acute Additional A&P Information Dehydration secondary to recurrent vomiting Concern for diabetic gastroparesis No active signs of infection, Ct abdomen with distended stomach, chronic calcific pancreatitis Patient is denying diarrhea able to pass flatus Hypokalemia secondary to vomiting Judicious use of potassium secondary to peritoneal dialysis for end-stage renal disease Hypothyroidism: Continue levothyroxine 175 mcg for now Essential tremors Patient is stating that recently his primidone dose was increased No acute exacerbation Peritoneal dialysis dependent Tele nephrology consult appreciated Renal dialysis diet DVT prophylaxis Heparin Full code Attestations Medical Necessity Statement*: awaiting symptomatic improvement, continues ot have significant nausea Coding Level of Care Code Acute Barrel Dedenting Machine Operator for Chg Fwd Diagnoses Dehydration E86.0 Diabetes E11.22; N18.6; Z79.4; Z99.2 Diabetes mellitus type: type 2 Diabetes mellitus custodial insulin use: with long term care social worker use Diabetes mellitus complication status: with kidney complications Diabetes mellitus complication detail: with chronic kidney disease Chronic kidney disease stage: on chronic dialysis Hypothyroidism (acquired) E03.9 Nausea & vomiting R11.2 Vomiting Intractability: intractable Vomiting type: unspecified Acute hypokalemia E87.6 Excessive weight loss R63.4 Essential tremor G25.0
[2020-10-25 20:52] LABS: Glucose Point of Care 357 mg/dL (70-110)
[2020-10-26] VITALS (10 sets, daily range): BP systolic 102–126; BP diastolic 63–80; PULSE 52–65; RESP 16–18; TEMP 36.4–36.8; O2SAT 96–98
[2020-10-26] MEDS: Dianeal low Ca w/2.5% dex 2,000 mL Bag 2000 ML INTRAPERIT ×5 (01:07→23:00)
[2020-10-26 06:18] LABS: Basophils % 0.6 %; Eosinophils # 0.1 10^3/uL (0.0-0.8); Eosinophils % 2.6 %; Hematocrit 31.2 % (42.0-52.0); Hemoglobin 10.3 g/dL (11.7-16.6); Lymphocytes # 1.5 10^3/uL (0.8-4.8); Mean Corpuscular Hemoglobin 31.8 pg (28.0-34.0); Mean Corpuscular Volume 96.3 fL (80-94); Monocytes # 0.5 10^3/uL (0.2-0.9); Monocytes % 8.5 %; Neutrophils # 3.18 10^3/uL (1.8-7.7); Neutrophils % 58.8 %; Nucleated Red Blood Cells % 0 %; Platelet Count 111 10^3/cmm (130-400); Red Blood Count 3.24 10^6/uL (4.1-5.3); Red Cell Distribution Width 13.6 % (12.1-15.1); White Blood Count 5.4 10^3/uL (4.0-10.0)
[2020-10-26 06:42] LABS: Alanine Aminotransferase < 5 U/L (0-41); Albumin Level 2.2 g/dL (3.5-5.2); Alkaline Phosphatase 95 IU/L (40-130); Aspartate Amino Transferase 5 U/L (0-40); Blood Urea Nitrogen 32 mg/dL (8-23); Calcium 7.6 mg/dL (8.5-10.5); Carbon Dioxide 24 mmol/L (22-29); Chloride 95 mmol/L (98-107); Globulin 2.3 g/dL (1.3-4.6); Glucose 180 mg/dL (65-115); Osmolality Calculated 283 mOsm/kg (285-295); Sodium 131 mmol/L (136-145); Total Bilirubin 0.3 mg/dL (0.15-1.2); Total Protein 4.5 g/dL (6.6-8.7)
[2020-10-26] MEDS: sodium chlor 0.45% +KCl 20 mEq 20 MEQ/1,000 ML BAG 75 MEQ IV ×2 (06:43→21:58)
[2020-10-26 07:06] LABS: Glucose Point of Care 185 mg/dL (70-110)
[2020-10-26] MEDS: metoprolol succinate ER (24 HR) 25 mg Tablet PO (08:01)
[2020-10-26] MEDS: heparin 5,000 unit/mL INJ 1 mL 5000 UNIT SUBCUT ×2 (08:01→21:49)
--- NOTE | 2020-10-26 11:22 | PM.PN ---
Subjective Subjective: Interval history: Remains weak, reports that nausea and vomiting is marginally improved. Peritoneal dialysis is going well, uneventful. Both in and out flow is painless, effluent is clear. No extremity edema, shortness of breath or other hypervolemic symptoms. No other additional new uremic symptoms. Vitals/I&O/Wt Last Vital Signs Temp 97.6 F 10/26/20 11:08 Pulse 52 L 10/26/20 11:08 Resp 18 10/26/20 11:08 BP 104/64 10/26/20 11:08 Pulse Ox 97 10/26/20 11:08 10/25/20 10/26/20 10/26/20 22:59 06:59 14:59 Intake Total 5680 / 6160 1000 / 7160 120 / 120 Output Total 4200 / 4200 0 / 4200 150 / 150 Balance 1480 / 1960 1000 / 2960 -30 / -30 Weight last 48 hrs Weight 88.904 kg Weight 88.904 kg Weight 88.904 kg Weight 88.904 kg Physical Exam Narrative: EXAM NARRATIVE: Constitutional: Awake, comfortable HEENT: Wet mucosa, no jvp, non icteric Lungs: Bilaterally clear without discernible wheeze, rales in all lung zones CVS: S1 S2, no murmurs Abdo: Soft, BS ok, exit site looks good Ext 4: Minimal edema, peripheral perfusion with no cyanosis Neurological: Grossly non-focal Data : 10/26/20 05:21 10/26/20 05:21 A&P Additional A&P Information 1. ESRD on PD While in the hospital I will dialyze him using a CAPD prescription of 5 exchanges a day split roughly evenly, 2 L of 2.5% solution. Rx working well, continue same prescription 2. Electrolytes. Will replace with 40mEq of KCl again today. Electrolytes otherwise look pretty reasonable. Will check a.m. levels. 3. Weakness. This may be a medication effect, his outpatient psychoactive medication has not been held. We are monitoring closely. I do have some concerns that he is under dialyzed as these will be the symptoms of renal failure also. 4. Chronic issues associated with end-stage renal disease These will be addressed in the outpatient clinic including titration of phosphorus medication, anemia management, secondary hyperparathyroidism etc. Mejia Rizvi MD Nephrology [phone] Patient seen and examined via telemedicine, with the assistance of the bedside RN > 25 min spent in evaluation and mgmt of patient Attestations Medical Necessity Statement*: Eval for ESRD mgmt Coding Level of Care Code Acute Computer Information Systems Professor for g Vick
[2020-10-26 11:54] LABS: Glucose Point of Care 235 mg/dL (70-110)
[2020-10-26] MEDS: potassium chloride ER 20 mEq Tablet 40 MEQ PO (12:02)
[2020-10-26] MEDS: acetaminophen 325 mg Tablet 650 MG PO (16:11)
[2020-10-26 16:51] LABS: Glucose Point of Care 215 mg/dL (70-110)
--- NOTE | 2020-10-26 16:53 | P.PN_ITS ---
Subjective Subjective: Interval history: Patient complains of no appetite. He has had episodes of nausea and vomiting. His is present and says he has really struggled with weakness not getting out of bed and nausea and vomiting for about a week and a half. They report that PD is going well. And while the patient has a history of chronic pancreatitis he does not take any enzyme therapy. He is not been told he has gastroparesis. He is on a kidney transplant list however this is on hold after suffering from coronary artery disease requiring stent placement. Medications: Reviewed: Yes Vitals/I&O/Wt Last Vital Signs Temp 98.1 F 10/26/20 15:31 Pulse 63 10/26/20 15:31 Resp 18 10/26/20 15:31 BP 104/68 10/26/20 15:31 Pulse Ox 97 10/26/20 15:31 10/26/20 10/26/20 10/26/20 06:59 14:59 22:59 Intake Total 1000 / 7160 680 / 680 Output Total 0 / 4200 150 / 150 Balance 1000 / 2960 530 / 530 Weight last 48 hrs Weight 88.904 kg Weight 88.904 kg Weight 88.904 kg Weight 88.904 kg Physical Exam Narrative: EXAM NARRATIVE: General: Patient is frail appearing. He is lying mostly flat in bed. Heart: regular rate, normal S1-S2 without loud murmur Lungs: clear to auscultation no wheezes rales or rhonchi Abdomen: Soft distended likely due to PD. Normal active bowel sounds Extremities: Pedal edema. Neuro: resting tremor of left had Data : 10/26/20 05:21 10/26/20 05:21 A&P Assessment and plan (1) Essential tremor: vs Parkinson's tremor. Per he was doing well on low dose sinemet but as they increased dose he experienced these symptoms. will restart at low dose. Status: Acute (2) Diabetes: hyperglycemia, on SSI will continue Status: Chronic Qualifiers: Diabetes mellitus type: type 2 Diabetes mellitus senior care insulin use: with senior care use Diabetes mellitus complication status: with kidney complications Diabetes mellitus complication detail: with chronic kidney disease Chronic kidney disease stage: on chronic dialysis Qualified Code(s): E11.22 - Type 2 diabetes mellitus with diabetic chronic kidney disease; N18.6 - End stage renal disease; Z79.4 - terminologist (current) use of insulin; Z99.2 - Dependence on renal dialysis (3) Hypothyroidism (acquired): on synthroid Status: Chronic (4) Hypertension: on metoprolol at home Status: Chronic Qualifiers: Hypertension type: essential hypertension Qualified Code(s): I10 - Essential (primary) hypertension (5) Nausea & vomiting: zofran prn. Add scheduled reglan at ESRD dosing. Status: Acute Qualifiers: Vomiting Intractability: intractable Vomiting type: unspecified Qualified Code(s): R11.2 - Nausea with vomiting, unspecified (6) Acute hypokalemia: given 40 meq today. Will schedule 20 meq bid and follow. Status: Acute (7) Parkinsonian tremor: as above. Status: Chronic Attestations Medical Necessity Statement*: persistent n/v Coding Level of Care Code Acute Panel Flow Machine Operator for [facility] Fwd Diagnoses Essential tremor G25.0 Diabetes E11.22; N18.6; Z79.4; Z99.2 Diabetes mellitus type: type 2 Diabetes mellitus senior care insulin use: with termination clerk use Diabetes mellitus complication status: with kidney complications Diabetes mellitus complication detail: with chronic kidney disease Chronic kidney disease stage: on chronic dialysis Hypothyroidism (acquired) E03.9 Hypertension I10 Hypertension type: essential hypertension Nausea & vomiting R11.2 Vomiting Intractability: intractable Vomiting type: unspecified Acute hypokalemia E87.6 Parkinsonian tremor G20
[2020-10-26] MEDS: metoclopramide 5 mg/mL SDV 2 mL IVP (17:20)
[2020-10-26] MEDS: potassium chloride oral liq 20 mEq/15 mL UDC PO (17:39)
[2020-10-26 20:25] LABS: Glucose Point of Care 228 mg/dL (70-110)
[2020-10-26] MEDS: ondansetron 2 mg/ML SDV 2 mL 4 MG IVP (21:58)
[2020-10-27] VITALS (11 sets, daily range): BP systolic 113–138; BP diastolic 69–82; PULSE 57–128; RESP 16–18; TEMP 36.2–36.8; O2SAT 95–98
[2020-10-27] MEDS: metoclopramide 5 mg/mL SDV 2 mL IVP ×5 (00:10→23:27)
[2020-10-27] MEDS: Dianeal low Ca w/2.5% dex 2,000 mL Bag 2000 ML INTRAPERIT ×2 (04:30→15:26)
[2020-10-27 06:49] LABS: Glucose Point of Care 197 mg/dL (70-110)
--- NOTE | 2020-10-27 07:44 | PM.PN ---
Subjective Subjective: Interval history: pt states that he feels better. decreased n. no vomiting. still lightheaded. no cp, no sob. states PD is going well. Medications: Reviewed: Yes Medication Review Details: Current Medications Acetaminophen (Acetaminophen 325 Mg Tablet) 650 mg PO Q6H PRN PRN Reason: Mild/Mod Pain Or Temp >/= 101 Last Admin: 10/26/20 16:11 Dose: 650 mg Documented by: Lipase/Protease/Amylase (Adbzts-Ytgqbfcu-Fddsjyo Capsule) 2 each PO TIDWM SHAMAR Bisacodyl (Bisacodyl 5 Mg Tablet) 10 mg PO DAILY PRN PRN Reason: CONSTIPATION Calcium Carbonate (Calcium Carbonate 500 Mg Chew Tablet) 500 mg PO Q12H PRN PRN Reason: dyspepsia Carbidopa/Levodopa (Carbidopa-Levodopa 10-100 Mg Tablet) 1 each PO TID SHAMAR Last Admin: 10/26/20 21:49 Dose: 1 each Documented by: Dextrose (Dextrose 50% Syringe 50 Ml) 25 ml IVP ONCE PRN; Protocol PRN Reason: hypoglycemia protocol Dextrose (Dextrose 50% Syringe 50 Ml) 50 ml IVP PRN PRN; Protocol PRN Reason: hypoglycemia protocol Gentamicin Sulfate (Gentamicin 0.1% Cream 15 Gm) 1 applic TOPICAL DAILY PRN PRN Reason: with dressing change to PD site Glucagon (Glucagon 1 Mg/Ml Inj 1 Ml) 1 mg IM ONCE PRN; Protocol PRN Reason: Adult Acute Hypoglycemia Prot. Heparin Sodium (Beef Lung) (Heparin 5,000 Unit/Ml Inj 1 Ml) 5,000 unit SUBCUT Q12H SHAMAR Last Admin: 10/26/20 21:49 Dose: 5,000 unit Documented by: Potassium Chloride/Sodium Chloride (Sodium Chlor 0.45% +Kcl 20 Meq) 20 meq in 1,000 mls @ 75 mls/hr IV .[id number] SHAMAR Last Admin: 10/26/20 21:58 Dose: 75 mls/hr Documented by: Dextrose (D5w) 500 mls @ 100 mls/hr IV ONCE PRN; Protocol PRN Reason: Adult Acute Hypoglycemia Prot Insulin Aspart (Insulin Aspart 100 Unit/1 Ml) 0 unit SUBCUT BEDTIME SHAMAR; Protocol Last Admin: 10/26/20 21:49 Dose: 4 unit Documented by: Insulin Aspart (Insulin Aspart 100 Unit/1 Ml) 0 unit SUBCUT TIDWM SHAMAR; Protocol Last Admin: 10/26/20 17:39 Dose: 4 unit Documented by: Metoclopramide HCl (Metoclopramide 5 Mg/Ml Sdv 2 Ml) 5 mg IVP Q6H [facility] Last Admin: 10/27/20 05:56 Dose: 5 mg Documented by: Metoprolol Succinate (Metoprolol Succinate Er (24 Hr) 25 Mg Tablet) 25 mg PO DAILY [facility] Last Admin: 10/26/20 08:01 Dose: 25 mg Documented by: Ondansetron HCl (Ondansetron 2 Mg/Ml Sdv 2 Ml) 4 mg IVP Q8H PRN PRN Reason: vomiting, or N/V if npo Last Admin: 10/26/20 21:58 Dose: 4 mg Documented by: Peritoneal Dialysis Solution (Dianeal Low Ca W/2.5% Dex 2,000 Ml Bag) 2,000 ml INTRAPERIT Q5H [facility] Last Admin: 10/27/20 04:30 Dose: 2,000 ml Documented by: Potassium Chloride (Potassium Chloride Oral Liq 20 Meq/15 Ml Udc) 20 meq PO BID [facility] Last Admin: 10/26/20 17:39 Dose: 20 meq Documented by: Vitals/I&O/Wt Last Vital Signs Temp 97.7 F 10/27/20 04:00 Pulse 89 10/27/20 06:00 Resp 17 10/27/20 04:00 BP 114/79 10/27/20 04:00 Pulse Ox 97 10/27/20 04:00 10/26/20 10/27/20 10/27/20 22:59 06:59 14:59 Intake Total 4460 / 5140 Output Total 5400 / 5550 4750 / 69118 Balance -940 / -410 -4750 / -5160 Weight last 48 hrs Weight 88.904 kg Weight 88.904 kg Weight 88.904 kg Physical Exam Narrative: EXAM NARRATIVE: vs noted Constitutional: Awake, comfortable in bed, NARD HEENT: nc/at, anicteric neck no jvp, no bruits Lungs: Bilaterally shar CVS: S1 S2, no murmurs Abdo: Soft, BS ok, exit site looks good , nt, nd Ext 4: ankleedema, peripheral perfusion with no cyanosis Neurological: a,a, o x 2, moves all ext skin no rash mood normal and appropriate Data : 10/26/20 05:21 10/26/20 05:21 A&P Additional A&P Information 1. ESRD on PD -cont CAPD prescription of 5 exchanges a day , as BP low, alt 1.5% and 2.5% gluc solution. 2. monitor orthostatic bp 2. Electrolytes. Will monitor chemistries, on oral k. on tums- will stop 3. malnutrition- nepro if possible 4.parkinsons disease and tremor per PMD 5. DM per medcine Patient seen and examined via telemedicine, with the assistance of the bedside RN > 25 min spent in evaluation and mgmt of patient Attestations Medical Necessity Statement*: esrd, nausea, dm, per medicine Time Spent in Patient Care: 16 - 35 minutes Coding Level of Care Code Acute Computer Forensic Examiner for Chg Vick
[2020-10-27] MEDS: lipase-protease-amylase Capsule 2 EACH PO ×3 (09:22→17:35)
[2020-10-27] MEDS: metoprolol succinate ER (24 HR) 25 mg Tablet PO (09:23)
[2020-10-27] MEDS: potassium chloride oral liq 20 mEq/15 mL UDC PO (09:23)
[2020-10-27] MEDS: heparin 5,000 unit/mL INJ 1 mL 5000 UNIT SUBCUT ×2 (09:23→22:13)
[2020-10-27] MEDS: Dianeal low Ca w/1.5% dex 2,000 mL Bag 2000 ML INTRAPERIT ×2 (09:37→22:42)
--- NOTE | 2020-10-27 10:05 | PC.SOCIAL ---
Pg 2 IMM Explained to pt Pg 2 IMM. No questions voiced. Provided pt a copy. Initialed, dated, & timed a copy & placed in chart.
[2020-10-27 10:43] LABS: Glucose Point of Care 186 mg/dL (70-110)
[2020-10-27 11:44] LABS: Alanine Aminotransferase < 5 U/L (0-41); Albumin Level 2.2 g/dL (3.5-5.2); Alkaline Phosphatase 109 IU/L (40-130); Blood Urea Nitrogen 27 mg/dL (8-23); Calcium 7.6 mg/dL (8.5-10.5); Carbon Dioxide 21 mmol/L (22-29); Chloride 100 mmol/L (98-107); Globulin 2.7 g/dL (1.3-4.6); Glomerular Filtration Rate 6.9 mL/min (90-130); Glucose 174 mg/dL (65-115); Osmolality Calculated 285 mOsm/kg (285-295); Sodium 133 mmol/L (136-145); Total Bilirubin 0.3 mg/dL (0.15-1.2); Total Protein 4.9 g/dL (6.6-8.7)
[2020-10-27 11:49] LABS: Anion Gap 16.2 (5-19); Aspartate Amino Transferase 13 U/L (0-40); Potassium 4.2 mmol/L (3.5-5.1)
--- NOTE | 2020-10-27 12:52 | PC.NURSE ---
pt notified sql report writer of a white sediment/ particles in the output bag of pts pd bag. sql report writer called Dr. Arias, his orders to add 1,000 units of heparin to each bag.
[2020-10-27] MEDS: ondansetron 2 mg/ML SDV 2 mL 4 MG IVP (14:58)
[2020-10-27 16:15] LABS: Glucose Point of Care 210 mg/dL (70-110)
[2020-10-27 16:21] LABS: Appearance, Peritoneal Fluid Clear (Clear); Color, Peritoneal Fluid Colorless (Pale Yellow); WBC Peritoneal Fluid 21 /uL
[2020-10-27 16:22] LABS: Mononuclear #, Pertinoneal Fl 0.016 10^3/uL; Pathology Referral Yes; Polynuclear # Cells, Perit 0.005 10^3/uL; RBC Pertioneal Fluid 0 10^3/uL
--- NOTE | 2020-10-27 18:57 | PC.NURSE ---
called dr Arias to read results of pd fluid he stated no additional meds are needed just the 1,000 units of heparin in the pd bag
--- NOTE | 2020-10-27 19:39 | PM.PN ---
Subjective Subjective: Interval history: Patient complains that he did not sleep well. He states he had a lot of nausea overnight. He appears more awake to me today. I saw him walk to the bathroom. is very concerned and says something is wrong and we do not know it she is very nice but very worried. RN reports fibrin clot in PD fluids she called nephrology who recommends testing PD fluid and adding heparin to bags. Medications: Reviewed: Yes Vitals/I&O/Wt Last Vital Signs Temp 98.0 F 10/27/20 19:23 Pulse 74 10/27/20 19:23 Resp 16 10/27/20 19:23 BP 118/77 10/27/20 19:23 Pulse Ox 97 10/27/20 19:23 10/27/20 10/27/20 10/27/20 06:59 14:59 22:59 Intake Total 945 / 945 Output Total 4750 / 40068 Balance -4750 / -5160 945 / 945 Weight last 48 hrs Weight 88.904 kg Weight 88.904 kg Weight 88.904 kg Physical Exam Narrative: EXAM NARRATIVE: General: Patient is frail appearing. He was seen in the bathroom with his 's help. And he walked back with a walker. He went back to lying flat in bed Heart: regular rate, normal S1-S2 without loud murmur Lungs: clear to auscultation no wheezes rales or rhonchi Abdomen: Soft distended likely due to PD. Normal active bowel sounds Extremities: Pedal edema. Neuro: resting tremor of both hands today. Data : 10/26/20 05:21 10/27/20 10:48 Micro: Microbiology 10/27/20 15:30 Gram Stain - Final Peritoneal Fluid A&P Assessment and plan (1) Essential tremor: vs Parkinson's tremor. Per he was doing well on low dose sinemet but as they increased dose he experienced these symptoms. restarted at low dose. Status: Acute (2) Diabetes: hyperglycemia, on SSI will continue Status: Chronic Qualifiers: Diabetes mellitus type: type 2 Diabetes mellitus intermediate insulin use: with intermediate use Diabetes mellitus complication status: with kidney complications Diabetes mellitus complication detail: with chronic kidney disease Chronic kidney disease stage: on chronic dialysis Qualified Code(s): E11.22 - Type 2 diabetes mellitus with diabetic chronic kidney disease; N18.6 - End stage renal disease; Z79.4 - correction (current) use of insulin; Z99.2 - Dependence on renal dialysis (3) Hypothyroidism (acquired): on synthroid Status: Chronic (4) Hypertension: on metoprolol at home Status: Chronic Qualifiers: Hypertension type: essential hypertension Qualified Code(s): I10 - Essential (primary) hypertension (5) Nausea & vomiting: zofran prn. Add scheduled reglan at ESRD dosing. Concerned with gastroparesis. While on Reglan no significant improvement thus far. Consider gastric emptying study when vomiting has resolved Status: Acute Qualifiers: Vomiting Intractability: intractable Vomiting type: unspecified Qualified Code(s): R11.2 - Nausea with vomiting, unspecified (6) Acute hypokalemia: given 40 meq yesterday and was scheduled for 20 mEq twice daily. His potassium was 4.2 today so it was held after he vomited the first dose. Status: Acute (7) Parkinsonian tremor: as above. Status: Chronic Additional A&P Information Hypersomnulence - consider stimulant in am. This was discussed iwth pt/ and they are agreeable. Peritoneal dialysis dependent Tele nephrology consult appreciated Renal dialysis diet DVT prophylaxis Heparin Full code Attestations Medical Necessity Statement*: Patient is still vomiting despite best efforts. Patient may need further investigation with EGD. 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
[2020-10-27 20:42] LABS: Glucose Point of Care 226 mg/dL (70-110)
[2020-10-27] MEDS: heparin,porcine 1,000 unit/mL INJ 1 mL 1000 UNIT IV (22:43)
[2020-10-28] VITALS (7 sets, daily range): BP systolic 110–172; BP diastolic 60–82; PULSE 59–74; RESP 16–20; TEMP 36.4–37.3; O2SAT 91–98
--- NOTE | 2020-10-28 01:39 | PM.EVENT ---
Event Note Event Note: Pt requested sleeping medication several times. Ordered one time dose of restoril. Will monitor response.
[2020-10-28] MEDS: temazepam 15 mg Capsule PO (01:50)
[2020-10-28] MEDS: heparin,porcine 1,000 unit/mL INJ 1 mL 1000 UNIT IV ×2 (03:10→07:25)
[2020-10-28] MEDS: Dianeal low Ca w/2.5% dex 2,000 mL Bag 2000 ML INTRAPERIT (03:10)
[2020-10-28] MEDS: metoclopramide 5 mg/mL SDV 2 mL IVP ×2 (05:54→10:33)
--- NOTE | 2020-10-28 06:49 | PC.NURSE ---
Late PD This nurse went to drain pt's PD at 1945, when this nurse tried to uncap pt's port and attach to drain bag pt stated that he cleanses the port with something but he could not remember what it was. This nurse verified the steps of PD with MELISSA Jeronimomanufacturing specialist and MELISSA Ferirs who has previously had this pt and his PD before. This nurse and MELISSA Ferris spoke pt on our hospital procedures. Pt stated, I don't understand, but do whatever. This nurse told pt we could clean the port with alcohol. As soon as MELISSA Ferris exited the room, pt stated, That's not what I do, but do whatever but this is my cotton-picking body and if something happens, I'm singing about [facility]. This nurse informed pt that I would go over physician's orders for anything specific and over dialysis written procedures. This nurse called to verify what pt had been referring to, did not answer. Voicemail was left with to call this back. called a little later and stated they cleanse his port in Exsept solution for three minutes prior to hooking pt to drain bag. brought in materials and left them in the window sill for staff to use.
[2020-10-28 07:22] LABS: Glucose Point of Care 207 mg/dL (70-110)
[2020-10-28 07:22] LABS: Glucose Point of Care 286 mg/dL (70-110)
--- NOTE | 2020-10-28 07:36 | PC.NURSE ---
Pharmacy was unable to enter the order in to add heparin porcine into each dialysis bag. 0000 dialysis was retimed to 0230 d/t 2000 dialysis being late, and 0500 dialysis was retimed until 0630 today. Day shift pharmacist discontinued the scheduled dialysis at 0630 in order to add the heparin porcine, making it unable to scan. Dialysis was instilled at 0715.
--- NOTE | 2020-10-28 07:47 | PM.PN ---
Subjective Subjective: Interval history: no complaints, weak, confused. PD fluids clear Medications: Reviewed: Yes Medication Review Details: Current Medications Acetaminophen (Acetaminophen 325 Mg Tablet) 650 mg PO Q6H PRN PRN Reason: Mild/Mod Pain Or Temp >/= 101 Last Admin: 10/26/20 16:11 Dose: 650 mg Documented by: Lipase/Protease/Amylase (Yuqvlh-Gdipprmd-Rgywixd Capsule) 2 each PO TIDWM SHAMAR Last Admin: 10/27/20 17:35 Dose: 2 each Documented by: Bisacodyl (Bisacodyl 5 Mg Tablet) 10 mg PO DAILY PRN PRN Reason: CONSTIPATION Carbidopa/Levodopa (Carbidopa-Levodopa 10-100 Mg Tablet) 1 each PO TID [facility] Last Admin: 10/27/20 22:14 Dose: Not Given Documented by: Dextrose (Dextrose 50% Syringe 50 Ml) 25 ml IVP ONCE PRN; Protocol PRN Reason: hypoglycemia protocol Dextrose (Dextrose 50% Syringe 50 Ml) 50 ml IVP PRN PRN; Protocol PRN Reason: hypoglycemia protocol Gentamicin Sulfate (Gentamicin 0.1% Cream 15 Gm) 1 applic TOPICAL DAILY PRN PRN Reason: with dressing change to PD site Glucagon (Glucagon 1 Mg/Ml Inj 1 Ml) 1 mg IM ONCE PRN; Protocol PRN Reason: Adult Acute Hypoglycemia Prot. Heparin Sodium (Beef Lung) (Heparin 5,000 Unit/Ml Inj 1 Ml) 5,000 unit SUBCUT Q12H [facility] Last Admin: 10/27/20 22:13 Dose: 5,000 unit Documented by: Dextrose (D5w) 500 mls @ 100 mls/hr IV ONCE PRN; Protocol PRN Reason: Adult Acute Hypoglycemia Prot Heparin Sodium (Porcine) 1,000 unit/ Peritoneal Dialysis Solution 2,001 mls @ 0 mls/hr INTRAPERIT 1000,2000 SHAMAR Heparin Sodium (Porcine) 1,000 unit/ Peritoneal Dialysis Solution 2,001 mls @ 0 mls/hr INTRAPERIT 0000,0500,1500 SHAMAR Insulin Aspart (Insulin Aspart 100 Unit/1 Ml) 0 unit SUBCUT BEDTIME [facility]; Protocol Last Admin: 10/27/20 22:13 Dose: 3 unit Documented by: Insulin Aspart (Insulin Aspart 100 Unit/1 Ml) 0 unit SUBCUT TIDWM [facility]; Protocol Last Admin: 10/27/20 17:36 Dose: 4 unit Documented by: Metoclopramide HCl (Metoclopramide 5 Mg/Ml Sdv 2 Ml) 5 mg IVP Q6H [facility] Last Admin: 10/28/20 05:54 Dose: 5 mg Documented by: Metoprolol Succinate (Metoprolol Succinate Er (24 Hr) 25 Mg Tablet) 25 mg PO DAILY [facility] Last Admin: 10/27/20 09:23 Dose: 25 mg Documented by: Ondansetron HCl (Ondansetron 2 Mg/Ml Sdv 2 Ml) 4 mg IVP Q8H PRN PRN Reason: vomiting, or N/V if npo Last Admin: 10/27/20 14:58 Dose: 4 mg Documented by: Vitals/I&O/Wt Last Vital Signs Temp 98.6 F 10/28/20 07:21 Pulse 67 10/28/20 07:21 Resp 17 10/28/20 07:21 BP 172/70 10/28/20 07:21 Pulse Ox 91 10/28/20 07:21 10/27/20 10/28/20 10/28/20 22:59 06:59 14:59 Output Total 0 / 0 0 / 0 Balance 0 / 945 0 / 945 Physical Exam Narrative: EXAM NARRATIVE: vs noted Constitutional: Awake, comfortable in bed, NARD HEENT: nc/at, anicteric neck no jvp, no bruits Lungs: Bilaterally clear CVS: S1 S2, no murmurs Abdo: Soft, BS ok, exit site looks good , nt, nd Ext 4: ankle edema, peripheral perfusion with no cyanosis Neurological: a,a, o x 1-2, moves all ext skin no rash mood normal and appropriate Data : 10/26/20 05:21 10/27/20 10:48 Micro: Microbiology 10/27/20 15:30 Gram Stain - Final Peritoneal Fluid A&P Additional A&P Information 1. ESRD on PD -cont CAPD prescription of 5 exchanges a day , as BP is mostly good- continue 5 exchanges of 1.5 % gluc alt 2.5% gluc solution. pd fluid now clear 2. Electrolytes. Will monitor chemistries. k now normal -hyponatremia- improving w/ pd 3. malnutrition- nepro if possible 4.parkinsons disease and tremor per PMD 5. DM per medicine 6. anemia- monitor iron studies, epo Patient seen and examined via telemedicine, with the assistance of the bedside RN > 25 min spent in evaluation and mgmt of patient Attestations Medical Necessity Statement*: per medicine Time Spent in Patient Care: 16 - 35 minutes Coding Level of Care Code Acute Car Trimmer for Anatoliy Hickman
[2020-10-28] MEDS: lipase-protease-amylase Capsule 2 EACH PO ×2 (08:43→12:00)
[2020-10-28] MEDS: metoprolol succinate ER (24 HR) 25 mg Tablet PO (08:43)
[2020-10-28] MEDS: heparin 5,000 unit/mL INJ 1 mL 5000 UNIT SUBCUT (08:43)
[2020-10-28 09:46] LABS: Glucose Point of Care 225 mg/dL (70-110)
[2020-10-28 09:51] LABS: Calcium 8.1 mg/dL (8.5-10.5); Parathyroid Hormone 150.3 pg/mL (15-65)
[2020-10-28 10:01] LABS: 25 Hydroxy Vitamin D 36 ng/mL (30-100); Alanine Aminotransferase < 5 U/L (0-41); Albumin Level 2.8 g/dL (3.5-5.2); Alkaline Phosphatase 130 IU/L (40-130); Anion Gap 17.8 (5-19); Aspartate Amino Transferase 14 U/L (0-40); Blood Urea Nitrogen 26 mg/dL (8-23); Calcium 8.3 mg/dL (8.5-10.5); Carbon Dioxide 24 mmol/L (22-29); Chloride 99 mmol/L (98-107); Globulin 2.2 g/dL (1.3-4.6); Glomerular Filtration Rate 7.3 mL/min (90-130); Glucose 212 mg/dL (65-115); Iron 142 ug/dL (59-158); Magnesium 1.6 mg/dL (1.7-2.3); Osmolality Calculated 295 mOsm/kg (285-295); Percent Saturation 77.5 % (20-50); Phosphorus 4.1 mg/dL (2.5-4.5); Potassium 3.8 mmol/L (3.5-5.1); Sodium 137 mmol/L (136-145); Total Bilirubin 0.4 mg/dL (0.15-1.2); Total Iron Binding Capacity 183 mcg/dl; Unsaturated Iron Binding 41 ug/dL (112-347)
[2020-10-28 10:16] LABS: Ferritin 1161 ng/mL (30-400)
[2020-10-28 10:19] LABS: Basophils % 0.4 %; Eosinophils # 0.2 10^3/uL (0.0-0.8); Eosinophils % 2.6 %; Lymphocytes # 1.5 10^3/uL (0.8-4.8); Lymphocytes % 22.1 %; Mean Corpuscular HGB Conc 32.4 g/dL (30.0-36.0); Mean Corpuscular Hemoglobin 31.7 pg (28.0-34.0); Mean Corpuscular Volume 97.6 fL (80-94); Mean Platelet Volume 10.9 fL (7.4-10.4); Monocytes # 0.4 10^3/uL (0.2-0.9); Monocytes % 6.5 %; Neutrophils # 4.57 10^3/uL (1.8-7.7); Neutrophils % 67.1 %; Nucleated Red Blood Cells % 0 %; Platelet Count 121 10^3/cmm (130-400); Red Blood Count 3.79 10^6/uL (4.1-5.3); Red Cell Distribution Width 13.6 % (12.1-15.1); White Blood Count 6.8 10^3/uL (4.0-10.0)
--- NOTE | 2020-10-28 13:42 | PM.DCS ---
Discharge Providers Date of Admission: 10/24/20 03:25 Date of Discharge: October 28, 2020 Attending Provider at Admission: Liset Schroeder MD Attending Provider at Discharge: Sherri Salinas MD Primary Care Provider: Irene Jones Diagnoses at Discharge Discharge Diagnosis (1) Essential tremor: Status: Acute (2) Diabetes: Status: Chronic Qualifiers: Diabetes mellitus type: type 2 Diabetes mellitus correction insulin use: with correction use Diabetes mellitus complication status: with kidney complications Diabetes mellitus complication detail: with chronic kidney disease Chronic kidney disease stage: on chronic dialysis Qualified Code(s): E11.22 - Type 2 diabetes mellitus with diabetic chronic kidney disease; N18.6 - End stage renal disease; Z79.4 - custodial (current) use of insulin; Z99.2 - Dependence on renal dialysis (3) Hypothyroidism (acquired): Status: Chronic (4) Hypertension: Status: Chronic Qualifiers: Hypertension type: essential hypertension Qualified Code(s): I10 - Essential (primary) hypertension (5) Nausea & vomiting: Status: Acute Qualifiers: Vomiting Intractability: intractable Vomiting type: unspecified Qualified Code(s): R11.2 - Nausea with vomiting, unspecified (6) Acute hypokalemia: Status: Acute (7) Parkinsonian tremor: Status: Chronic (8) Gastroparesis: Status: Acute Reason for Visit Reason for Visit: WEAK/LOW BP Hospital Course Hospital Course Anshu Hurt is a 70 year old male who presented to the emergency room with chief complaint of weakness, nausea and vomiting, poor appetite and general malaise for about a week. He states at baseline that he is able to walk but that he is not been able to walk without assistance for the last few days. He does indicate that he has had recent increase in the dose of one of his medications for his tremors prior to the onset of his symptoms getting worse.In the emergency room he had multiple abnormal laboratory studies consistent with his diagnosis of chronic kidney disease but also had low potassium elevated BNP and troponin, elevated lactic acid. Suboptimal inspiration and possible cardiomegaly noted but no acute infiltrates. Clinically patient was extremely dry appearing. Showed dilated stomach with air-fluid levels, consideration was for gastroparesis. Nausea vomiting did improve and completely resolved on day of discharge with symptomatic management with Zofran and Reglan at renal dosing. He is tolerating a regular diet today. Discussed with the patient that he will likely need a gastric emptying study to evaluate for gastroparesis. Patient states he already follows with a supervisor stripping Dr. Leone in [place] and would like to discuss this with him as an outpatient. He is due for a colonoscopy soon, will discuss possibility of EGD at the time with his GI physician. He is also followed for chronic calcific pancreatitis, had 4-5 episodes of diarrhea yesterday, thus far today only with one episode. states normally maintained on a laxative at home. C. difficile PCR has been ordered, remains pending at the time of discharge. Appears more likely to be related to chronic pancreatitis. Peritoneal fluid analysis was performed, WBC count at 21, no current concerns for PD associated peritonitis. Patient denies any abdominal pain. No current signs of sepsis. He feels that he is back to his recent baseline state of health and is being discharged today in a stable condition. Assessment was performed, decreased endurance and decreased strength was noted, overall impression that patient would benefit from continued skilled therapy to increase strength and balance and safe independence, home health/home PT was discussed with the spouse, however this was declined, patient spouse indicates that she will be able to help him at home. Physical Exam Narrative: EXAM NARRATIVE: GEN: Awake, alert and oriented, no acute distress CVS: S1S2 N RS: CTA B/L Abd: Soft, nt/nd , bs+ Discharge Data Data Completed and Pending: Completed Studies During Hospitalization Category Date Time Status CT abdomen pelvis wo con [id number] Rout ine Cat Scan 10/24/20 12:27 Completed XR chest 1V martha ble [id number] Urgent Exams 10/24/20 01:32 Completed CV echo complete* [id number] Routine Ultrasound 10/24/20 08:03 Completed Pending at discharge Category Date Time Status Blood Culture Sta t Lab 10/24/20 02:20 Results Body Fluid Cultur e & GS Stat Lab 10/27/20 15:30 Results Complete Blood Co unt w/Auto AM LABS Lab 10/29/20 04:00 Ordered Complete Blood Co unt w/Auto AM LABS Lab 10/30/20 04:00 Ordered Comprehensive Met abolic Panel AM LA BS Lab 10/29/20 04:00 Ordered Comprehensive Met abolic Panel AM LA BS Lab 10/30/20 04:00 Ordered Magnesium AM LABS Lab 10/29/20 04:00 Ordered Magnesium AM LABS Lab 10/30/20 04:00 Ordered Phosphorus AM LAB S Lab 10/29/20 04:00 Ordered Phosphorus AM LAB S Lab 10/30/20 04:00 Ordered Labs from last 24 hours 10/28/20 10/28/20 10/28/20 10:01 09:45 08:50 WBC 6.8 RBC 3.79 L Hgb 12.0 Hct 37.0 L MCV 97.6 H MCH 31.7 MCHC 32.4 RDW 13.6 Plt Count 121 L MPV 10.9 H Neut % (Auto) 67.1 Lymph % (Auto) 22.1 [place] % (Auto) 6.5 Eos % (Auto) 2.6 Baso % (Auto) 0.4 Neut # (Auto) 4.57 Lymph # (Auto) 1.5 [place] # (Auto) 0.4 Eos # (Auto) 0.2 Baso # (Auto) 0.0 Nucleated RBC % (a uto) 0 Total Counted Nucleated RBCs # 0.0 Sodium Potassium Chloride Carbon Dioxide Anion Gap BUN Creatinine GFR Calculation Glucose POC Glucose 225 H Calculated Osmolal ity Calcium Phosphorus Magnesium Iron TIBC % Saturation Unsat Iron Binding Ferritin Total Bilirubin AST ALT Alkaline Phosphata se Total Protein Albumin Globulin 25-OH Vitamin D To clau PTH Intact 150.3 H Calcium (PTH Intac t) 8.1 L Peritoneal Color Peritoneal Appeara nce Peritoneal WBC Peritoneal RBC Periton Mononu # A uto Mononuclear WBCs % Polynuclear WBCs % Perit Polynuc WBCs # Peritoneal Diff Co mmnt Pleural Color Pleural Appearance Pleural WBC Pleural RBC Pleural Other Cell s Pleural Polynuclea r % Pleural Mononuclea r % Path Cons w/Slide 10/28/20 10/28/20 10/28/20 08:50 06:17 06:13 WBC RBC Hgb Hct MCV MCH MCHC RDW Plt Count MPV Neut % (Auto) Lymph % (Auto) [place] % (Auto) Eos % (Auto) Baso % (Auto) Neut # (Auto) Lymph # (Auto) [place] # (Auto) Eos # (Auto) Baso # (Auto) Nucleated RBC % (a uto) Total Counted Nucleated RBCs # Sodium 137 Potassium 3.8 Chloride 99 Carbon Dioxide 24 Anion Gap 17.8 BUN 26 H Creatinine 7.5 H* GFR Calculation 7.3 L Glucose 212 H POC Glucose 286 H 207 H Calculated Osmolal ity 295 Calcium 8.3 L Phosphorus 4.1 Magnesium 1.6 L Iron 142 TIBC 183 % Saturation 77.5 H Unsat Iron Binding 41 L Ferritin 1161 H Total Bilirubin 0.4 AST 14 ALT < 5 Alkaline Phosphata se 130 Total Protein 5.0 L Albumin 2.8 L Globulin 2.2 25-OH Vitamin D To clau 36 PTH Intact Calcium (PTH Intac t) Peritoneal Color Peritoneal Appeara nce Peritoneal WBC Peritoneal RBC Periton Mononu # A uto Mononuclear WBCs % Polynuclear WBCs % Perit Polynuc WBCs # Peritoneal Diff Co mmnt Pleural Color Pleural Appearance Pleural WBC Pleural RBC Pleural Other Cell s Pleural Polynuclea r % Pleural Mononuclea r % Path Cons w/Slide 10/27/20 10/27/20 10/27/20 19:15 15:59 15:30 WBC RBC Hgb Hct MCV MCH MCHC RDW Plt Count MPV Neut % (Auto) Lymph % (Auto) [place] % (Auto) Eos % (Auto) Baso % (Auto) Neut # (Auto) Lymph # (Auto) [place] # (Auto) Eos # (Auto) Baso # (Auto) Nucleated RBC % (a uto) Total Counted Cancelled Nucleated RBCs # Sodium Potassium Chloride Carbon Dioxide Anion Gap BUN Creatinine GFR Calculation Glucose POC Glucose 226 H 210 H Calculated Osmolal ity Calcium Phosphorus Magnesium Iron TIBC % Saturation Unsat Iron Binding Ferritin Total Bilirubin AST ALT Alkaline Phosphata se Total Protein Albumin Globulin 25-OH Vitamin D To clau PTH Intact Calcium (PTH Intac t) Peritoneal Color Colorless Peritoneal Appeara nce Clear Peritoneal WBC 21 Peritoneal RBC 0 Periton Mononu # A uto 0.016 Mononuclear WBCs % 76.000 Polynuclear WBCs % 24.000 Perit Polynuc WBCs # 0.005 Peritoneal Diff Co mmnt Yes Pleural Color Cancelled Pleural Appearance Cancelled Pleural WBC Cancelled Pleural RBC Cancelled Pleural Other Cell s Cancelled Pleural Polynuclea r % Cancelled Pleural Mononuclea r % Cancelled Path Cons w/Slide Cancelled Vitals: Last Vital Signs Temp 98.8 F 10/28/20 11:43 Pulse 71 10/28/20 11:43 Resp 16 10/28/20 11:43 BP 125/65 10/28/20 11:43 Pulse Ox 95 10/28/20 11:43 Discharge Plan Discharge Patient Disposition: Home Condition: Stable Prescriptions: New metoclopramide HCl [Reglan] 5 mg tablet 5 mg PO BID PRN (Reason: nausea and vomiting) 7 Days Qty: 14 RF: 0 acetaminophen 325 mg Tablet 650 mg PO Q6H PRN (Reason: Mild/Mod Pain Or Temp >/= 101) Qty: 0 RF: 0 ondansetron HCl [Zofran] 4 mg tablet 4 mg PO TID PRN (Reason: nausea and vomiting) 5 Days RF: 0 Continued omeprazole 20 mg capsule,delayed release(DR/EC) 20 mg PO BID RF: 0 furosemide 80 mg tablet 80 mg PO .COMPLEX RF: 0 Pancreaze 10,500-35,500- 61,500 unit capsule,delayed release(DR/EC) See Rx Instructions .ROUTE .COMPLEX RF: 0 potassium chloride 20 mEq tablet extended release 20 meq PO DAILY RF: 0 levothyroxine 175 mcg capsule 175 mcg PO DAILY RF: 0 atorvastatin 40 mg tablet 40 mg PO DAILY@2100 RF: 0 insulin aspart U-100 [Novolog Flexpen U-100 Insulin] 100 unit/mL (3 mL) insulin pen See Rx Instructions .ROUTE .COMPLEX RF: 0 terazosin 5 mg Capsule 5 mg PO DAILY RF: 0 Risperdal 1 mg Tablet 1 mg PO DAILY RF: 0 clopidogrel 75 mg Tablet 75 mg PO DAILY@2100 RF: 0 MagOx 400 mg (241.3 mg magnesium) Tablet 400 mg PO DAILY RF: 0 aspirin 81 mg Tablet,Chewable 81 mg PO DAILY@2100 RF: 0 ergocalciferol (vitamin D2) 1,250 mcg (50,000 unit) Capsule 1,250 mcg PO Q7D RF: 0 carbidopa-levodopa 25-100 mg Tablet 1 tab PO TID RF: 0 Basaglar KwikPen U-100 Insulin 100 unit/mL (3 mL) Insulin Pen 25 - 40 unit SUBCUT . DIRECTED RF: 0 Renvela 800 mg Tablet See Rx Instructions .ROUTE .COMPLEX RF: 0 Changed docusate sodium [DOK] 100 mg capsule 100 mg PO BID PRN (Reason: prn) Qty: 0 RF: 0 metoprolol succinate 50 mg Tablet Extended Release 24 Hr 25 mg PO DAILY Qty: 0 RF: 0 Discontinued Lyrica 100 mg Capsule 100 mg PO BEDTIME@2100 RF: 0 Discharge Orders: Discharge Order (Routine); Ordered 10/28/20 Ordered By: Sherri Salinas Referrals: Chris Leone MD [Referring] - 4-7 days Kiran Reardon MD [Primary Care Provider] - 1 week Discharge Diet: Usual diet Discharge Activity: As per PT/OT instructions Discharge Attestations Time Spent in Discharge Care*: greater than 30 min Quality Metrics Clinical Quality Measures During this hospital stay, did patient experience: None Coding Level of Care Code Acute Chg [facility] note Diagnoses Essential tremor G25.0 Diabetes E11.22; N18.6; Z79.4; Z99.2 Diabetes mellitus type: type 2 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
--- NOTE | 2020-10-28 15:34 | PC.NURSE ---
Patient was given discharge teaching information as well as prescriptions for Zofran and Reglan. All other prescriptions sent to [facility] pharmacy. at bedside stated understanding. Patient IV removed and wheeled out to private vehicle.
== END 2020-10-28 15:40 | disposition home or self-care (01) | DRG 74 ==
LOC: ER 03:10 → MEDSURG 04:58
PROVIDERS: Internal Medicine; Internal Medicine Nephrology; Admitting Provider Hospitalist; Emergency Provider Emergency Medicine; PCP Family Medicine; Visit Provider Student in an Organized Health Care Education/Training Program
DX: E11.43 Type 2 diabetes mellitus with diabetic autonomic (poly)neuropathy (principal); I12.0 Hypertensive chronic kidney disease with stage 5 chronic kidney disease or end stage renal disease; N18.5 Chronic kidney disease, stage 5; K86.1 Other chronic pancreatitis; E46 Unspecified protein-calorie malnutrition; E11.22 Type 2 diabetes mellitus with diabetic chronic kidney disease; E11.65 Type 2 diabetes mellitus with hyperglycemia; K31.84 Gastroparesis; Z99.2 Dependence on renal dialysis; F32.9 Major depressive disorder, single episode, unspecified; M10.9 Gout, unspecified; E78.5 Hyperlipidemia, unspecified; E03.9 Hypothyroidism, unspecified; Z79.899 Other long term (current) drug therapy; G20 Parkinson's disease; Z87.891 Personal history of nicotine dependence; E86.0 Dehydration; E87.6 Hypokalemia; I25.10 Atherosclerotic heart disease of native coronary artery without angina pectoris; Z95.5 Presence of coronary angioplasty implant and graft; G47.10 Hypersomnia, unspecified; Z79.82 Long term (current) use of aspirin; Z79.4 Long term (current) use of insulin; Z68.27 Body mass index [BMI] 27.0-27.9, adult; D63.1 Anemia in chronic kidney disease
CPT/HCPCS: 36415; 36416; 51701; 71045; 74176; 80048; 80053; 80061; 80500; 81001; 82306; 82310; 82728; 82962; 83036; 83540; 83550; 83605; 83690; 83735; 83880; 83970; 84100; 84145; 84443; 84484; 85025; 85610; 85651; 85730; 86140; 87040; 87070; 87075; 87205; 89050; 90935; 93005; 93306; 96365; 96372; 96375; 97110; 97116; 97161; 99285; J1644; J1815; J2405; J2765; J7030; Q3014

== ENCOUNTER 2021-10-28 06:00 | Outpatient (RCR) | payer MEDICARE, OTHER, SELFPAY | END 2021-11-06 23:59 | disposition home or self-care (01) | LOC: SPT 06:00 | PROVIDERS: PCP Family Medicine; Referring Provider Nurse Practitioner Family; Visit Provider Nurse Practitioner Family | DX: M51.26 Other intervertebral disc displacement, lumbar region (principal) | CPT/HCPCS: 97110; 97162 ==

== ENCOUNTER 2021-11-07 06:00 | Outpatient (RCR) | payer MEDICARE, OTHER, SELFPAY | END 2021-12-04 17:18 | disposition home or self-care (01) | LOC: SPT 06:00 | PROVIDERS: PCP Family Medicine; Referring Provider Nurse Practitioner Family; Visit Provider Nurse Practitioner Family | DX: M51.26 Other intervertebral disc displacement, lumbar region (principal) | CPT/HCPCS: 97110 ==

== ENCOUNTER 2022-02-17 18:40 | Inpatient (IN) | payer MEDICARE, OTHER, SELFPAY ==
[2022-02-17] VITALS (10 sets, daily range): BP systolic 116–143; BP diastolic 64–80; PULSE 104–112; RESP 15–24; TEMP 36.6–36.9; O2SAT 94–100; BMI 29.2
--- NOTE | 2022-02-17 18:49 | ECG_ITS ---
[facility] Test Date: 2022-02-17 Pat Name: Anshu Hurt Department: Room: Gender: Male Fundraising Assistant: : [id number] Requested By: Raisa Rayo Order Number: [id number] Murtaza MD: Lino Javier M.D. Measurements Intervals Dillon Rate: 111 P: 192 RI: 125 QRS: -7 QRSD: 112 T: 79 QT: 351 QTc: 479 Interpretive Statements ECTOPIC ATRIAL TACHYCARDIA MODERATE INTRAVENTRICULAR CONDUCTION DELAY [110+ ms QRS DURATION] NONSPECIFIC ST & T-WAVE ABNORMALITY Compared to ECG 02/17/2022 02:13:45 Intraventricular conduction delay now present T-wave abnormality now present Sinus rhythm no longer present Myocardial infarct finding no longer present ST (T wave) deviation no longer present Electronically Signed On 02-17-2022 21:57:21 CDT by Lino Javier M.D. [id number]
--- NOTE | 2022-02-17 18:49 | XRR_ITS ---
PROCEDURE INFORMATION: Exam: XR Chest Exam date and time: 02/17/2022 7:00 PM Age: 72 years old Clinical indication: Shortness of breath; Additional info: SOB TECHNIQUE: Imaging protocol: Radiologic exam of the chest. Views: 1 view. COMPARISON: CR (CHEST, ) 02/17/2022 2:43 AM FINDINGS: Tubes, catheters and devices: Right thoracic implanted medical charge entry specialist. Lungs: Emphysematous changes. Bilateral mid to lower lung field airspace infiltrates. Pleural spaces: Unremarkable. No pleural effusion. No pneumothorax. Heart/Mediastinum: Unremarkable. No cardiomegaly. Bones/joints: Unremarkable. Other findings: Left mid lung 7.3 mm nodule again seen, previously described is stable dating back March 2018. XR/XR chest 1V portable [id number] IMPRESSION: 1. Emphysematous changes. 2. Bilateral mid to lower lung field airspace infiltrates. 3. Left mid lung 7.3 mm nodule again seen, previously described is stable dating back March 2018.
--- NOTE | 2022-02-17 19:19 | W.ED.SOB ---
HPI - SOB/Dyspnea General: Chief Complaint: Shortness of Breath/Dyspnea Stated Complaint: SOB Time Seen by Provider: 02/17/22 18:48 Source: patient Mode of arrival: ambulatory Limitations: no limitations History of Present Illness: HPI Narrative: 72-year-old male has a history of end-stage renal disease does peritoneal dialysis states he is having increasing shortness of breath of the last few days patient was seen here last night had received breathing treatments is feeling improved but states that throughout the day he is had a worsening cough and feeling more short of breath. He denies any fever denies any increased water gain or swelling. He has had no sick contacts he has had his COVID vaccinations. Denies any worsening or improving factors. Associated symptoms: Deny abdominal pain, chest pain, fever(s), nausea or vomiting Review of Systems Const: Denies: fever(s), chills, body aches or change in appetite Eyes: Denies: blurry vision or eye discomfort ENMT: Denies: throat pain or dental pain Card: Denies: chest pain Resp: Reports: dyspnea and non-productive cough GI: Denies: abdominal pain, nausea, vomiting or diarrhea : Denies: dysuria Musc: Denies: neck pain or back pain Skin/Breast: Denies: rash Neuro: Denies: headache(s) Psych: Denies: depression Carlos/Lymph: Denies: easy bruising All/Imm: Denies: urticaria PFSH ED PFSH: Medical History Depression Diabetes Gout Hyperlipidemia Hypertension Hypothyroidism (acquired) Pancreatitis takes chronic pancrease Peritoneal dialysis catheter in place Stage 5 chronic kidney disease Tremor Vitiligo Surgical History History of appendectomy History of carpal tunnel release left wrist 1974 History of cholecystectomy Family History Other CAD (coronary artery disease) Cancer Diabetes Hypertension Denies family history of Stroke Social History Smoking and tobacco status: former smoker Quit status (tobacco): has quit using tobacco Year quit tobacco: 1992 Alcohol intake: never Household members: spouse Marital status: Physical Exam Const: COMMON NORMALS: patient oriented x3 GENERAL APPEARANCE: in distress HENMT: COMMON NORMALS: normocephalic and atraumatic HEAD & SCALP: normocephalic and atraumatic Eye: COMMON NORMALS: Equal, round and reactive pupils present and EOMs intact bilaterally PUPIL: Yes Equal, round and reactive pupils present Neck/C-Spine: COMMON NORMALS: full ROM and supple Chest: COMMONS NORMALS: normal inspection of the chest and normal palpation of entire chest wall Resp: COMMON NORMALS: No retractions and No use of accessory muscles EFFORT & INSPECTION: Yes tachypneic AUSCULTATION: rales and wheezes Cardio: COMMON NORMALS: regular rhythm and No murmurs present (Cardio) RATE: tachycardic RHYTHM: regular rhythm GI: COMMON NORMALS: Normal to inspection, nondistended, normoactive bowel sounds present, Soft to palpation, non-tender and no masses PALPATION: Yes Soft to palpation Extremity: COMMON NORMALS: normal to inspection and full ROM Neuro: COMMON NORMALS: patient oriented x3, moves all extremities and no focal motor deficits Psych: COMMON NORMALS: mental status grossly normal, Normal thought process present and cooperative THOUGHT PROCESS: Normal thought process present Skin: COMMON NORMALS: no rashes or lesions noted and no wounds GENERAL SKIN EXAM: no rashes or lesions noted Course Vital Signs: Vital signs: Vital Signs Temperature 98.4 F 02/17/22 18:45 Pulse Rate 105 H 02/17/22 20:20 Respiratory Rate 21 H 02/17/22 20:20 Blood Pressure 131/64 02/17/22 20:20 Pulse Oximetry 100 02/17/22 20:20 MDM - SOB/Dyspnea Medical Decision Making Patient presents here with breath with pneumonia versus fluid overload he does have a history of end-stage renal disease on peritoneal dialysis Lab Data : 02/17/22 19:49 02/17/22 19:49 Labs/Radiology: Radiology Impressions Chest X-Ray 02/17/22 18:49 IMPRESSION: 1. Emphysematous changes. 2. Bilateral mid to lower lung field airspace infiltrates. 3. Left mid lung 7.3 mm nodule again seen, previously described is stable dating back March 2018. Laboratory Results WBC 14.5 10^3/uL (4.0-10.0) H 02/17/22 19:49 RBC 2.84 10^6/uL (4.1-5.3) L 02/17/22 19:49 Hgb 8.5 g/dL (11.7-16.6) L 02/17/22 19:49 Hct 25.6 % (42.0-52.0) L 02/17/22 19:49 MCV 90.1 fl (80-94) 02/17/22 19:49 MCH 29.9 pg (28.0-34.0) 02/17/22 19:49 MCHC 33.2 g/dL (30.0-36.0) 02/17/22 19:49 RDW 17.2 % (12.1-15.1) H 02/17/22 19:49 Plt Count 175 10^3/cmm (130-400) 02/17/22 19:49 MPV 11.2 fL (7.4-10.4) H 02/17/22 19:49 Neut % (Auto) 95.5 % 02/17/22 19:49 Lymph % (Auto) 2.3 % 02/17/22 19:49 Payne % (Auto) 1.4 % 02/17/22 19:49 Eos % (Auto) 0.0 % 02/17/22 19:49 Baso % (Auto) 0.1 % 02/17/22 19:49 Neut # (Auto) 13.83 10^3/uL (1.8-7.7) H 02/17/22 19:49 Lymph # (Auto) 0.3 10^3/uL (0.8-4.8) L 02/17/22 19:49 Payne # (Auto) 0.2 10^3/uL (0.2-0.9) 02/17/22 19:49 Eos # (Auto) 0.0 10^3/uL (0.0-0.8) 02/17/22 19:49 Baso # (Auto) 0.0 10^3/uL (0.0-0.1) 02/17/22 19:49 Nucleated RBC % (auto) 0 % 02/17/22 19:49 Nucleated RBCs # 0.0 /100WBC 02/17/22 19:49 PT 15.60 SECONDS (12.1-14.9) H 02/17/22 19:49 INR 1.20 (0.8-1.2) 02/17/22 19:49 D-Dimer 0.91 ug/mIFEU (0-0.59) H 02/17/22 19:49 Specimen Type Arterial 02/17/22 19:30 Sample Site Radial, left 02/17/22 19:30 ABG pH 7.40 (7.35-7.45) 02/17/22 19:30 ABG pCO2 30.1 mmHg (35-45) L 02/17/22 19:30 ABG pO2 69.3 mmHg (80.0-100.0) L 02/17/22 19:30 ABG HCO3 18.8 mmol/L (22-26) L 02/17/22 19:30 ABG Base Excess -5.2 mmol/L (-2.0-2.0) L 02/17/22 19:30 Jose Test Pos 02/17/22 19:30 Hematocrit 27.0 % (42-52) L 02/17/22 19:30 Hgb O2 Saturation 92.0 % (95-100) L 02/17/22 19:30 Carboxyhemoglobin 1.0 %THgb (0.4-20.1) 02/17/22 19:30 Methemoglobin 1.0 % (0.4-1.5) 02/17/22 19:30 Total Hemoglobin 8.8 g/dL (14-18) L 02/17/22 19:30 O2 Delivery Device Nc 02/17/22 19:30 O2 Liters/Min 0.5 % 02/17/22 19:30 Personal Fitness Manager ID Walci 02/17/22 19:30 Sodium 132 mmol/L (136-145) L 02/17/22 19:49 Potassium 4.4 mmol/L (3.5-5.1) 02/17/22 19:49 Chloride 92 mmol/L (98-107) L 02/17/22 19:49 Carbon Dioxide 19 mmol/L (22-29) L 02/17/22 19:49 Anion Gap 25.4 (5-19) H 02/17/22 19:49 BUN 48 mg/dL (8-23) H 02/17/22 19:49 Creatinine 10.0 mg/dL (0.7-1.2) H* 02/17/22 19:49 GFR Calculation 5.2 mL/min (90-130) L 02/17/22 19:49 Glucose 211 mg/dL (65-115) H 02/17/22 19:49 Calculated Osmolality 293 mOsm/kg (285-295) 02/17/22 19:49 Calcium 8.4 mg/dL (8.5-10.5) L 02/17/22 19:49 Total Bilirubin 0.3 mg/dL (0.15-1.2) 02/17/22 19:49 AST 78 U/L (0-40) H 02/17/22 19:49 ALT 35 U/L (0-41) 02/17/22 19:49 Alkaline Phosphatase 121 IU/L (40-130) 02/17/22 19:49 NT-Pro-B Natriuret Pep 81946 pg/mL (0-125) H 02/17/22 19:49 Total Protein 6.0 g/dL (6.6-8.7) L 02/17/22 19:49 Albumin 3.5 g/dL (3.5-5.2) 02/17/22 19:49 Globulin 2.5 g/dL (1.3-4.6) 02/17/22 19:49 SARS-CoV-2 Ag (Rapid) Negative (Negative) 02/17/22 20:18 EKG Data EKG 1: I personally reviewed and interpreted this EKG as follows: EKG Interpretation Date: 02/17/22 EKG interpretation time: 18:58 Interpretation: atrial tachy hr [address] or t wave abnormalities qrs 112 qtc 417 Discharge Plan Discharge Patient Disposition: Admitted As Inpatient Clinical Impression: Community acquired pneumonia, Stage 5 chronic kidney disease, Pulmonary edema Condition: Stable Prescriptions: No Action omeprazole 20 mg capsule,delayed release(DR/EC) 20 mg PO BID 0RF furosemide 80 mg tablet 80 mg PO .COMPLEX 0RF Rx Instructions: 80 mg PO take additional tablet as needed; Pancreaze 10,500-35,500- 61,500 unit capsule,delayed release(DR/EC) See Rx Instructions .ROUTE .COMPLEX 0RF Rx Instructions: 1 cap orally TIDWM DIRECTED TAKE 3 WITH BIGGER MEALS potassium chloride 20 mEq tablet extended release 20 meq PO DAILY 0RF Rx Instructions: SEE PHARMACY COMMENT levothyroxine 175 mcg capsule 175 mcg PO DAILY 0RF atorvastatin 40 mg tablet 40 mg PO DAILY@2100 0RF insulin aspart U-100 [Novolog Flexpen U-100 Insulin] 100 unit/mL (3 mL) insulin pen See Rx Instructions .ROUTE .COMPLEX 0RF Rx Instructions: PER SLIDING SCALE ciclopirox 8 % solution 1 applic topical DAILY 28 Days Qty: 6.6 1RF terazosin 5 mg Capsule 5 mg PO DAILY 0RF Risperdal 1 mg Tablet 1 mg PO DAILY 0RF clopidogrel 75 mg Tablet 75 mg PO DAILY@2099 0RF MagOx 400 mg (241.3 mg magnesium) Tablet 400 mg PO DAILY 0RF aspirin 81 mg Tablet,Chewable 81 mg PO DAILY@2100 0RF ergocalciferol (vitamin D2) 1,250 mcg (50,000 unit) Capsule 1,250 mcg PO Q7D 0RF Rx Instructions: ON WEDNESDAYS carbidopa-levodopa 25-100 mg Tablet 1 tab PO TID 0RF Rx Instructions: see pharmacy comment Basaglar KwikPen U-100 Insulin 100 unit/mL (3 mL) Insulin Pen 25 - 40 unit SUBCUT . DIRECTED 0RF Rx Instructions: DEPENDENT ON DEXTROSE LEVEL DURING DIALYSIS Renvela 800 mg Tablet See Rx Instructions .ROUTE .COMPLEX 0RF Rx Instructions: 1,600 mg orally with meals acetaminophen 325 mg Tablet 650 mg PO Q6H PRN (Reason: Mild/Mod Pain Or Temp >/= 101) Qty: 0 0RF metoprolol succinate 50 mg Tablet Extended Release 24 Hr 25 mg PO DAILY Qty: 0 0RF Rx Instructions: SEE PHARMACY COMMENTS DOK 100 mg capsule 100 mg PO BID PRN (Reason: prn) Qty: 0 0RF prednisone 50 mg tablet 50 mg PO DAILY Qty: 5 0RF albuterol sulfate 90 mcg/actuation HFA aerosol inhaler 2 inh INHALATION Q6H PRN (Reason: shortness of breath or wheezing) Qty: 8 0RF doxycycline hyclate 100 mg tablet 100 mg PO BID 7 Days Qty: 14 0RF Referrals: Kiran Reardon MD [Primary Care Provider] - Coding Level of Care Code 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
[2022-02-17 19:42] LABS: ABG PCO2 30.1 mmHg (35-45); Base Excess ABG -5.2 mmol/L (-2.0-2.0); Blood Gas Allen Test Pos; Blood Gas LPM 0.5 %; Blood Gas Operator Identificat WALCI; Blood Gas Sample Site Radial, left; Blood Gas Sample Type Arterial; HCO3 ABG 18.8 mmol/L (22-26); Oxygen Device NC; PO2 ABG 69.3 mmHg (80.0-100.0); Total Hemoglobin 8.8 g/dL (14-18)
[2022-02-17] MEDS: ipratropium-albuterol 3 mL Neb INHALATION ×2 (19:46→23:50)
[2022-02-17 20:00] LABS: Basophils % 0.1 %; Hematocrit 25.6 % (42.0-52.0); Hemoglobin 8.5 g/dL (11.7-16.6); Lymphocytes # 0.3 10^3/uL (0.8-4.8); Lymphocytes % 2.3 %; Mean Corpuscular HGB Conc 33.2 g/dL (30.0-36.0); Mean Corpuscular Hemoglobin 29.9 pg (28.0-34.0); Mean Corpuscular Volume 90.1 fl (80-94); Mean Platelet Volume 11.2 fL (7.4-10.4); Monocytes # 0.2 10^3/uL (0.2-0.9); Monocytes % 1.4 %; Neutrophils # 13.83 10^3/uL (1.8-7.7); Neutrophils % 95.5 %; Nucleated Red Blood Cells % 0 %; Platelet Count 175 10^3/cmm (130-400); Red Blood Count 2.84 10^6/uL (4.1-5.3); Red Cell Distribution Width 17.2 % (12.1-15.1); White Blood Count 14.5 10^3/uL (4.0-10.0)
[2022-02-17 20:15] LABS: D Dimer 0.91 ug/mIFEU (0-0.59)
[2022-02-17 20:37] LABS: SARS Covid-2 Antigen Negative (Negative)
[2022-02-17 20:37] LABS: Alanine Aminotransferase 35 U/L (0-41); Albumin Level 3.5 g/dL (3.5-5.2); Alkaline Phosphatase 121 IU/L (40-130); Anion Gap 25.4 (5-19); Aspartate Amino Transferase 78 U/L (0-40); Blood Urea Nitrogen 48 mg/dL (8-23); Calcium 8.4 mg/dL (8.5-10.5); Carbon Dioxide 19 mmol/L (22-29); Chloride 92 mmol/L (98-107); Globulin 2.5 g/dL (1.3-4.6); Glomerular Filtration Rate 5.2 mL/min (90-130); Glucose 211 mg/dL (65-115); Osmolality Calculated 293 mOsm/kg (285-295); Potassium 4.4 mmol/L (3.5-5.1); Sodium 132 mmol/L (136-145); Total Bilirubin 0.3 mg/dL (0.15-1.2)
[2022-02-17] MEDS: cefTRIAXone 1,000 MG in sodium chloride 0.9% (plus) 50 ML 100 MG IV (21:26)
[2022-02-17] MEDS: FUROsemide 10 mg/mL SDV 4mL 40 MG IVP (21:26)
[2022-02-17] MEDS: LORazepam 2 mg/mL INJ 1 mL 1 MG IVP (21:46)
[2022-02-17] MEDS: azithromycin 500 MG in sodium chloride 0.9% 250 ML 250 MG IV (21:47)
[2022-02-18] VITALS (13 sets, daily range): BP systolic 109–143; BP diastolic 56–89; PULSE 69–108; RESP 13–25; TEMP 36.3–36.6; O2SAT 94–100; BMI 28.5
[2022-02-18] MEDS: heparin 5,000 unit/mL INJ 1 mL 5000 UNIT SUBCUT ×3 (00:13→22:37)
--- NOTE | 2022-02-18 05:14 | P.HP_ITS ---
Providers/Chief Complaint Admitting Physician: Sherri Salinas MD Primary Care Provider: Ireen Jones Chief Complaint: SOB History of Present Illness Anshu Hurt is a 72 year old male with HTN, DM, chronic pancreatitis and ESRD currently on PD, [place]'s. He presents today with increasing dyspnea over the past one week. Per patient and he has been experiencing cough, central chest pain with bouts of cough and incraesing dyspnea over the past one week. Denies any fever. Denies expectoration or hemoptysis. He came to the ER yesterday with above complaints, was diagnosed with acute bronchitis, treated with iv steroids and nebulization and then discharged with po prednisone 50Mg and doxycycline. He returned today as he continued to feel dyspneic, 02 sat at home was in the 80s. states PD has been uneventful, he did miss session yesterday. Today he is noted to have a new 02 requirement at 3lpm. He was given Ativan in the ER for restlessness which resulted in lethargy, then needed Bipap for additional respiratory support. He has a h/o Parkinson's disease for which he has a spinal stimulator in place, settings were recently changed. has noticed exaggerated jerking movements in B/L arms and legs since settings were changed. Review of Systems General: Reports: 10 or more systems reviewed and unremarkable except in HPI and below Const: Denies: fever(s), chills or body aches Eyes: Denies: change in vision, blurry vision or photophobia ENMT: Reports: hoarseness; Denies: throat pain, enlarged tonsils, odynophagia or nasal congestion Card: Denies: chest pain, palpitations, irregular heart rhythm, edema, swelling of feet/ankles, lightheadedness, pre-syncope, dyspnea on exertion or orthopnea Resp: Denies: dyspnea, productive cough, non-productive cough, wheezing, stridor, pain on inspiration, change in phlegm color, hemoptysis or chest congestion GI: Denies: abdominal pain, nausea, vomiting, hematemesis, coffee ground emesis, dysphagia, heartburn, diarrhea, constipation, GI cramping, change in stool character, hematochezia or melena : Denies: flank pain, dysuria, urinary frequency, urinary urgency, urinary hesitancy or hematuria Musc: Denies: neck pain, back pain, extremity pain, joint swelling, joint warmth or deformity Neuro: Denies: headache(s), numbness in extremities, weakness in extremities, sensory changes, difficulty walking, frequent falls, dizziness, vertigo, behavi oral changes, Slurred speech present or seizure-like activity Psych: Denies: anxiety, depression, suicidal ideation or homicidal ideation Endo: Denies: polyuria, polydipsia, tired all the time, cold intolerance or hot flashes Carlos/Lymph: Denies: easy bruising or easy bleeding Medications/Allergies Home Medications Medication Instructions Recorded Confirmed Last Taken Type atorvastatin 40 mg tablet 40 mg PO DAILY@2100 09/05/19 02/18/22 Unknown History insulin aspart U-100 100 unit/mL See Rx Instructions .ROUTE .COMPLEX 09/05/19 02/18/22 Unknown History (3 mL) subcutaneous pen (Novolog Flexpen U-100 Insulin aspart) omeprazole 20 mg capsule,delayed 20 mg PO BID 09/05/19 02/18/22 Unknown History release potassium chloride 20 mEq 20 meq PO DAILY 09/05/19 02/18/22 Unknown History tablet,extended release ergocalciferol (vitamin D2) 1,250 1,250 mcg PO Q7D 10/24/20 02/18/22 Unknown History mcg (50,000 unit) capsule insulin glargine 100 unit/mL (3 25 - 40 unit SUBCUT . DIRECTED 10/24/20 02/18/22 Unknown History mL) subcutaneous pen (Basaglar KwikPen U-100 Insulin) magnesium oxide 400 mg (241.3 mg 400 mg PO DAILY 10/24/20 02/18/22 Unknown History magnesium) tablet (MagOx) albuterol sulfate 90 mcg/actuation 2 inh INHALATION Q6H PRN #8 gm 02/17/22 02/18/22 Unknown Rx aerosol inhaler Calc Acetate See Rx Instructions .ROUTE .COMPLEX 02/18/22 Unknown History Doxycycline 100 mg PO BID 02/18/22 Unknown History levothyroxine 150 mcg tablet 150 mcg PO DAILY 02/18/22 02/18/22 Unknown History (Euthyrox) [id number] See Rx Instructions .ROUTE .COMPLEX 02/18/22 02/18/22 Unknown History 12,000-38,000-60,000 unit capsule,delayed rel (Creon) metoprolol succinate 50 mg capsule 25 mg PO BEDTIME 02/18/22 02/18/22 Unknown History sprinkle, ext. release 24 hr prednisone 50 mg tablet 50 mg PO DAILY 02/18/22 02/18/22 Unknown History pregabalin 150 mg capsule (Lyrica) 150 mg PO BEDTIME 02/18/22 02/18/22 Unknown History sertraline 50 mg tablet 75 mg PO DAILY 02/18/22 02/18/22 Unknown History Allergies Allergy/AdvReac Type Severity Reaction Status Date / Time No Known Allergies Allergy Verified 09/23/21 10:41 PFSH Acute PFSH: Medical History Depression Diabetes Gout Hyperlipidemia Hypertension Hypothyroidism (acquired) Pancreatitis takes chronic pancrease Peritoneal dialysis catheter in place Stage 5 chronic kidney disease Tremor Vitiligo Surgical History History of appendectomy History of carpal tunnel release left wrist 1975 History of cholecystectomy Family History Other CAD (coronary artery disease) Cancer Diabetes Hypertension Denies family history of Stroke Social History Smoking and tobacco status: former smoker Quit status (tobacco): has quit using tobacco Year quit tobacco: 1992 Alcohol intake: never Household members: spouse Marital status: Vitals/I&O/Wt Last Vital Signs Temp 97.3 F L 02/18/22 04:00 Pulse 75 02/18/22 04:00 Resp 14 02/18/22 04:00 BP 112/56 02/18/22 04:00 Pulse Ox 99 02/18/22 04:00 02/17/22 02/17/22 02/18/22 14:59 22:59 06:59 Intake Total 50 / 50 250 / 300 Balance 50 / 50 250 / 300 Weight last 48 hrs Weight 92.986 kg Weight 95.254 kg Physical Exam Narrative: GEN: Awake, alert and oriented, currently with Bipap on CVS: S1S2 N RS: B/L scattered wheezing and crackles Abd: Soft, nt/nd , bs+ 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 Emphysematous changes. 2. Bilateral mid to lower lung field airspace infiltrates. 3. Left mid lung 7.3 mm nodule again seen, previously described is stable dating back March 2018. Laboratory Results WBC 14.5 10^3/uL (4.0-10.0) H 02/17/22 19:49 RBC 2.84 10^6/uL (4.1-5.3) L 02/17/22 19:49 Hgb 8.5 g/dL (11.7-16.6) L 02/17/22 19:49 Hct 25.6 % (42.0-52.0) L 02/17/22 19:49 MCV 90.1 fl (80-94) 02/17/22 19:49 MCH 29.9 pg (28.0-34.0) 02/17/22 19:49 MCHC 33.2 g/dL (30.0-36.0) 02/17/22 19:49 RDW 17.2 % (12.1-15.1) H 02/17/22 19:49 Plt Count 175 10^3/cmm (130-400) 02/17/22 19:49 MPV 11.2 fL (7.4-10.4) H 02/17/22 19:49 Neut % (Auto) 95.5 % 02/17/22 19:49 Lymph % (Auto) 2.3 % 02/17/22 19:49 Canadian % (Auto) 1.4 % 02/17/22 19:49 Eos % (Auto) 0.0 % 02/17/22 19:49 Baso % (Auto) 0.1 % 02/17/22 19:49 Neut # (Auto) 13.83 10^3/uL (1.8-7.7) H 02/17/22 19:49 Lymph # (Auto) 0.3 10^3/uL (0.8-4.8) L 02/17/22 19:49 Canadian # (Auto) 0.2 10^3/uL (0.2-0.9) 02/17/22 19:49 Eos # (Auto) 0.0 10^3/uL (0.0-0.8) 02/17/22 19:49 Baso # (Auto) 0.0 10^3/uL (0.0-0.1) 02/17/22 19:49 Nucleated RBC % (auto) 0 % 02/17/22: Nucleated RBCs # 0.0 /100WBC 02/17/22 19:49 PT 15.60 SECONDS (12.1-14.9) H 02/17/22 19:49 INR 1.20 (0.8-1.2) 02/17/22 19: D-Dimer 0.91 ug/mIFEU (0-0.59) H 02/17/22 19:49 Specimen Type Arterial 02/17/22 19:30 Sample Site Radial, left 02/17/22 19:30 ABG pH 7.40 (7.35-7.45) 02/17/22 19:30 ABG pCO2 30.1 mmHg (35-45) L 02/17/22 19:30 ABG pO2 69.3 mmHg (80.0-100.0) L 02/17/22 19:30 ABG HCO3 18.8 mmol/L (22-26) L 02/17/22 19:30 ABG Base Excess -5.2 mmol/L (-2.0-2.0) L 02/17/22 19:30 Jose Test Pos 02/17/22 19:30 Hematocrit 27.0 % (42-52) L 02/17/22 19:30 Hgb O2 Saturation 92.0 % (95-100) L 02/17/22 19:30 Carboxyhemoglobin 1.0 %THgb (0.4-20.1) 02/17/22 19:30 Methemoglobin 1.0 % (0.4-1.5) 02/17/22 19:30 Total Hemoglobin 8.8 g/dL (14-18) L 02/17/22 19:30 O2 Delivery Device Nc 02/17/22 19:30 O2 Liters/Min 0.5 % 02/17/22 19:30 Group Manager ID Gómez 02/17/22 19:30 Sodium 132 mmol/L (136-145) L 02/17/22 19:49 Potassium 4.4 mmol/L (3.5-5.1) 02/17/22 19:49 Chloride 92 mmol/L (98-107) L 02/17/22 19:49 Carbon Dioxide 19 mmol/L (22-29) L 02/17/22 19:49 Anion Gap 25.4 (5-19) H 02/17/22 19:49 BUN 48 mg/dL (8-23) H 02/17/22 19:49 Creatinine 10.0 mg/dL (0.7-1.2) H* 02/17/22 19:49 GFR Calculation 5.2 mL/min (90-130) L 02/17/22 19:49 Glucose 211 mg/dL (65-115) H 02/17/22 19:49 Calculated Osmolality 293 mOsm/kg (285-295) 02/17/22 19:49 Calcium 8.4 mg/dL (8.5-10.5) L 02/17/22 19:49 Total Bilirubin 0.3 mg/dL (0.15-1.2) 02/17/22 19:49 AST 78 U/L (0-40) H 02/17/22 19:49 ALT 35 U/L (0-41) 02/17/22 19:49 Alkaline Phosphatase 121 IU/L (40-130) 02/17/22 19:49 NT-Pro-B Natriuret Pep 05531 pg/mL (0-125) H 02/17/22 19:49 Total Protein 6.0 g/dL (6.6-8.7) L 02/17/22 19:49 Albumin 3.5 g/dL (3.5-5.2) 02/17/22 19:49 Globulin 2.5 g/dL (1.3-4.6) 02/17/22 19:49 SARS-CoV-2 Ag (Rapid) Negative (Negative) 02/17/22 20:18 A&P Assessment and plan (1) Pulmonary edema: CXR today shows B/L infiltrates, more marked compared CXR from 02/17/22. Together with elevated BNP, suspect that findings are related to pulmonary edema. He has received lasix 40g iv in the ER, however has had poor urine response. Per , patient has been oliguric for several months. Nephrology consult for PD, may need more frequent exchanges than current once da ebonie schedule Status: Acute (2) Community acquired pneumonia: Cannot rule out community acquired pneumonia at this time given syptoms of cough, dyspnea, B/L chets infiltrates Ceftriaxone 1g iv q24h. Doxycycline to continue as strated yesterday Duoneb q6h inhalation , robitussin for symptomatic relief check covid pcr, sputum cx, urine legionella ag Status: Acute (3) Hypoxia: * new hypoxic resp failure, likely related to pumonary edema * supplemental 02 to keep sat >92% * nephrology assessment to assess for PD * D dimer to screen for PE Status: Acute (4) Stage 5 chronic kidney disease: Status: Chronic Plan Elevated troponins: increased troponin 300 range without significant 2 hr delta. Review of previous records shows elevated trop in the same range. No acute ST-T wave changes on EKG, ACS appears less likely. 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
[2022-02-18 05:18] LABS: Basophils % 0.1 %; Hematocrit 22.7 % (42.0-52.0); Hemoglobin 7.9 g/dL (11.7-16.6); Lymphocytes # 0.5 10^3/uL (0.8-4.8); Lymphocytes % 3.2 %; Mean Corpuscular HGB Conc 34.8 g/dL (30.0-36.0); Mean Corpuscular Hemoglobin 29.7 pg (28.0-34.0); Mean Corpuscular Volume 85.3 fl (80-94); Mean Platelet Volume 11.4 fL (7.4-10.4); Monocytes # 0.5 10^3/uL (0.2-0.9); Monocytes % 3.5 %; Neutrophils # 13.07 10^3/uL (1.8-7.7); Neutrophils % 92.4 %; Nucleated Red Blood Cells % 0 %; Platelet Count 156 10^3/cmm (130-400); Red Blood Count 2.66 10^6/uL (4.1-5.3); White Blood Count 14.2 10^3/uL (4.0-10.0)
[2022-02-18 05:37] LABS: Alanine Aminotransferase 38 U/L (0-41); Albumin Level 3.1 g/dL (3.5-5.2); Alkaline Phosphatase 101 IU/L (40-130); Anion Gap 24.1 (5-19); Aspartate Amino Transferase 118 U/L (0-40); Blood Urea Nitrogen 51 mg/dL (8-23); Calcium 8.1 mg/dL (8.5-10.5); Carbon Dioxide 20 mmol/L (22-29); Chloride 91 mmol/L (98-107); Globulin 2.4 g/dL (1.3-4.6); Glomerular Filtration Rate 5.2 mL/min (90-130); Glucose 236 mg/dL (65-115); Osmolality Calculated 293 mOsm/kg (285-295); Potassium 4.1 mmol/L (3.5-5.1); Sodium 131 mmol/L (136-145); Total Bilirubin 0.2 mg/dL (0.15-1.2); Total Protein 5.5 g/dL (6.6-8.7)
[2022-02-18 06:10] LABS: Glucose Point of Care 237 mg/dL (70-110)
[2022-02-18] MEDS: cefTRIAXone 1,000 MG in sodium chloride 0.9% (plus) 50 ML 100 MG IV (06:34)
--- NOTE | 2022-02-18 07:45 | CT_ITS ---
WS: [id number] CT CHEST TECHNIQUE: Noncontrast CT of the chest with coronal and sagittal reformatted images. CLINICAL INFORMATION: hypoxia COMPARISON: None. DLP: 843.[address] scans at [facility] use at least one of these dose optimization techniques: automated e xposure control; mA and/or kV adjustment per patient size (includes targeted exams where dose is matc hed to clinical indication); or iterative reconstruction. FINDINGS: Small RIGHT greater than LEFT pleural effusions with compressive atelectasis in the lung bases. Mild chronic emphysematous changes. Slight patchy infiltrate in RIGHT upper lobe laterally along the fissu re. Additional faint hazy bilateral groundglass infiltrates in the perihilar regions. Correlation for pneumonia including Covid 19 pneumonia. Aortic calcification. Normal caliber thoracic aorta. Coronary calcification. No mediastinal or hilar lymphadenopathy. No axillary lymphadenopathy. Calcified splenic granulomas. Normal GE junction. Splen ic artery calcification. Partially visualized calcifications in the pancreas can be seen with chronic pancreatitis. Small amount of perihepatic and perisplenic ascites. CT/CT chest con [id number] IMPRESSION: 1. Small bilateral pleural effusions with compressive atelectasis in the lung bases. 2. Patchy infiltrate in RIGHT upper lobe along the fissure.Correlation for pne umonia. 3. Additional hazy bilateral groundglass infiltrates in the perihilar regions. Correlation for pneumonia including Covid 19 pneumonia. 4. Ovoid nodule LEFT upper lobe measuring 8 mm. Recommend 6 month follow-up est CT. 5. No mediastinal or hilar lymphadenopathy. 6. Aortic calcification and coronary calcification. 7. Small amount of perihepatic and perisplenic ascites.
[2022-02-18] MEDS: doxycycline 100 mg Tablet PO ×2 (08:26→17:51)
[2022-02-18] MEDS: levothyroxine 175 mcg Tablet PO (08:26)
[2022-02-18] MEDS: terazosin 5 mg Capsule PO (08:26)
[2022-02-18] MEDS: pantoprazole DR 40 mg Tablet PO (08:26)
[2022-02-18] MEDS: insulin lispro 100 unit/1 mL SUBCUT ×4 (08:27→21:33)
--- NOTE | 2022-02-18 08:40 | P.CONIM_ITS ---
Providers/Reason For Consult Consulting Physician/Specialty*: Sharon Copeland DO, telenephrology Reason for Consult*: ESRD Attending Physician: Sherri Salinas MD Primary Care Provider: Irene Jones History of Present Illness History of Present Illness Anshu Hurt is a 72 year old male presenting for evaluation dyspnea and cough. Being treated for bronchitis. ESRD on PD x 2.5 years. performs CCPD on Anshu every night. She adjusts concentrations of dialysate based on his weight. Typical overnight UF is around 2L. She reports his weight has been stable. He makes very little urine. Dwells with icodextrin during day. Last evening she used all 2.5%, UF again about 2L. states PD fluid is clear. Review of Systems Resp: Reports: dyspnea Medications/Allergies Home Medications Medication Instructions Recorded Confirmed Last Taken Type atorvastatin 40 mg tablet 40 mg PO QPM 09/05/19 02/18/22 Unknown History insulin aspart U-100 100 unit/mL See Rx Instructions .ROUTE .COMPLEX 09/05/19 02/18/22 Unknown History (3 mL) subcutaneous pen (Novolog Flexpen U-100 Insulin aspart) omeprazole 20 mg capsule,delayed 20 mg PO BID 09/05/19 02/18/22 Unknown History release potassium chloride 20 mEq 20 meq PO QAM 09/05/19 02/18/22 Unknown History tablet,extended release insulin glargine 100 unit/mL (3 See Rx Instructions .ROUTE .COMPLEX 10/24/20 02/18/22 Unknown History mL) subcutaneous pen (Basaglar KwikPen U-100 Insulin) magnesium oxide 400 mg (241.3 mg 400 mg PO QAM 10/24/20 02/18/22 Unknown History magnesium) tablet (MagOx) albuterol sulfate 90 mcg/actuation 2 inh INHALATION Q6H PRN #8 gm 02/17/22 02/18/22 Unknown Rx aerosol inhaler aspirin 81 mg tablet,delayed 81 mg PO BEDTIME 02/18/22 02/18/22 Unknown History release calcium acetate(phosphat bind) 667 See Rx Instructions .ROUTE .COMPLEX 02/18/22 02/18/22 Unknown History mg capsule cholecalciferol (vitamin D3) 1,250 50,000 unit PO Q7D 02/18/22 02/18/22 Unknown History mcg (50,000 unit) capsule ciprofloxacin HCl 500 mg tablet 500 mg PO BID 02/18/22 02/18/22 Unknown History doxycycline hyclate 100 mg tablet 100 mg PO BID 02/18/22 02/18/22 Unknown History levothyroxine 150 mcg tablet 150 mcg PO QAM 02/18/22 02/18/22 Unknown History (Euthyrox) [id number] See Rx Instructions .ROUTE .COMPLEX 02/18/22 02/18/22 Unknown History 12,000-38,000-60,000 unit capsule,delayed rel (Creon) metoprolol succinate 50 mg capsule 25 mg PO BEDTIME PRN 02/18/22 02/18/22 Unknown History sprinkle, ext. release 24 hr prednisone 50 mg tablet 50 mg PO DAILY 02/18/22 02/18/22 Unknown History pregabalin 150 mg capsule (Lyrica) 150 mg PO BEDTIME 02/18/22 02/18/22 Unknown History sertraline 50 mg tablet 75 mg PO QPM 02/18/22 02/18/22 Unknown History Allergies Allergy/AdvReac Type Severity Reaction Status Date / Time No Known Allergies Allergy Verified 02/18/22 08:34 Current Medications Generic Name Dose Route Start Last Admin Trade Name Freq PRN Reason Stop Dose Admin Albuterol/Ipratropium 3 ml 02/17/22 23:06 02/17/22 23:50 Ipratropium-Albuterol 3 Ml Neb INHALATION 3 ml Q6H PRN Administration SHORTNESS OF BREATH Carbidopa/Levodopa 1 each 02/18/22 09:00 02/18/22 08:32 Carbidopa-Levodopa 25-100mg Tablet PO Not Given TID SHAMAR Doxycycline Monohydrate 100 mg 02/18/22 09:00 02/18/22 08:26 Doxycycline 100 Mg Tablet PO 02/22/22 08:59 100 mg BID SHAMAR Administration Protocol Heparin Sodium (Porcine) 5,000 unit 02/17/22 23:15 02/18/22 00:13 Heparin 5,000 Unit/Ml Inj 1 Ml SUBCUT 5,000 unit Q12H SHAMAR Administration Ceftriaxone Sodium 1,000 mg/ 50 mls @ 100 mls/hr 02/18/22 05:45 02/18/22 07:44 Sodium Chloride IV Infused Q24H SHAMAR Infusion Protocol Insulin Human Lispro 0 unit 02/18/22 08:00 02/18/22 08:27 Insulin Lispro 100 Unit/1 Ml SUBCUT 10 unit WM&BEDTIME SHAMAR Administration Protocol Levothyroxine Sodium 175 mcg 02/18/22 09:00 02/18/22 08:26 Levothyroxine 175 Mcg Tablet PO 175 mcg DAILY SHAMAR Administration Metoprolol Succinate 25 mg 02/18/22 09:00 02/18/22 08:32 Metoprolol Succinate Er (24 Hr) 50 Mg Tablet PO Not Given DAILY SHAMAR Pantoprazole Sodium 40 mg 02/18/22 09:00 02/18/22 08:[address] 40 Mg Tablet PO 40 mg DAILY SHAMAR Administration Risperidone 1 mg 02/18/22 09:00 02/18/22 08:32 Risperidone 1 Mg Tablet PO Not Given DAILY SHAMAR Terazosin HCl 5 mg 02/18/22 09:00 02/18/22 08:26 Terazosin 5 Mg Capsule PO 5 mg DAILY SHAMAR Administration PFSH Acute PFSH: Medical History Depression Diabetes Gout Hyperlipidemia Hypertension Hypothyroidism (acquired) Pancreatitis takes chronic pancrease Peritoneal dialysis catheter in place Stage 5 chronic kidney disease Tremor Vitiligo Surgical History History of appendectomy History of carpal tunnel release left wrist 1975 History of cholecystectomy Family History Other CAD (coronary artery disease) Cancer Diabetes Hypertension Denies family history of Stroke Social History Smoking and tobacco status: former smoker Quit status (tobacco): has quit using tobacco Year quit tobacco: 1992 Alcohol intake: never Household members: spouse Marital status: Vitals/I&O/Wt Last Vital Signs Temp 97.6 F 02/18/22 07:52 Pulse 69 02/18/22 07:52 Resp 14 02/18/22 07:52 BP 115/66 02/18/22 07:52 Pulse Ox 100 02/18/22 07:52 02/17/22 02/18/22 02/18/22 22:59 06:59 14:59 Intake Total 50 / 50 250 / 300 50 / 50 Balance 50 / 50 250 / 300 50 / 50 Weight last 48 hrs Weight 92.986 kg Weight 95.254 kg Physical Exam Const: OTHER: + conversational dyspnea on NC O2 - felt more comfortable on BiPAP Data : 02/18/22 04:53 02/18/22 04:53 Other Labs: AST 118 BNP 65,939 albumin 3.1 Micro: Microbiology 02/17/22 19:40 Blood Culture - Preliminary Blood SPECIMEN COLLECTED 02/17/22 19:49 Blood Culture - Preliminary Blood SPECIMEN COLLECTED CXR: Radiologist's impression: 1. Emphysematous changes. 2. Bilateral mid to lower lung field airspace infiltrates. 3. Left mid lung 7.3 mm nodule again seen, previously described is stable dating back March 2018. ? CT Chest: Radiologist's impression: 1..? Small bilateral pleural effusions with compressive atelectasis in the lung bases. 2.? Patchy infiltrate in RIGHT upper lobe along the fissure.Correlation for pneumonia. 3.? Additional hazy bilateral groundglass infiltrates in the perihilar regions. Correlation for pneumonia including Covid 19 pneumonia. 4.? Ovoid nodule LEFT upper lobe measuring 8 mm. Recommend 6 month follow-up chest CT. 5.? No mediastinal or hilar lymphadenopathy. 6.? Aortic calcification and coronary calcification. 7.? Small amount of perihepatic and perisplenic ascites. ABG Interpretation 1: 02/17/22 19:30 ABG pH 7.40 ABG pCO2 30.1 L ABG pO2 69.3 L ABG HCO3 18.8 L ABG Base Excess -5.2 L My Interpretation: respiratory alk, metabolic acidosis A&P Assessment and plan (1) End stage renal disease: Status: Acute Plan Telemedicine consult performed with assistance of RN at bedside. 1. ESRD on peritoneal dialysis (cycler) 2. Pneumonia 3. Fluid overload; hypervolemic hyponatremia 4. Anemia Rec: PD tonight: 6L 2.5%, 6L 4.25%, continue to dwell with icodextrin during day. performing PD cycler set up and disconnect. Antibiotic ointment to exit site. Furosemide 80 mg IV BID. Iron studies, IV iron if deficient. Weekly SC epogen. Consult Attestations Medical Necessity Statement: see above Time Spent in Patient Care: 16 - 35 minutes Coding Level of Care Code Acute Sales And Service Engineer for martha Hickman Diagnoses End stage renal disease N18.6
[2022-02-18] MEDS: sevelamer 800 mg Tablet 1600 MG PO ×3 (08:44→18:11)
--- NOTE | 2022-02-18 10:39 | P.MISC_ITS ---
Miscellaneous Note Note: Patient seen this morning H&P reviewed I have requested CT scan of his chest to better delineate pulmonary parenchyma, did show x-ray to the patient and his Bilateral groundglass opacities noted with mild vascular congestion Patient has not experienced any fever, he is endorsing dry cough and shortness of breath is stating that she would like to stay with him and manage his peritoneal dialysis, nephro has been consulted as well He does have tachypnea, conversational dyspnea He is using his shoulder girdle muscles to assist his breathing Currently he is on 3 L of nasal cannula Use BiPAP last night Nonfocal neuro exam No signs of edema Abdomen is soft Bilateral breath sounds without adventitious rhonchi S1, S2 Assessment and plan CT scan this morning of his chest D-dimer is not remarkable to request PE work-up He has leukocytosis, has been afebrile, continue community-acquired pneumonia treatment for now I did discuss with him the indication for BiPAP and if that fails the indication for intubation, patient does not want to be intubated at any cost however agree able for chest compressions we will change his CODE STATUS to limited resuscitation His and nurse was at bedside Patient has a stable pulmonary nodule 7.3 mm History of 20 years of smoking as well Peritoneal dialysis dependent, renal dialysis diet, Parkinson's: Patient has a deep brain stimulator, patient has not used carbidopa and ropinirole in quite some time Hypertension: He only takes metoprolol succinate on as-needed basis if systolic blood pressure above 145 mmHg as per his
--- NOTE | 2022-02-18 10:45 | USCV_ITS ---
Anshu Hurt Age: 72 Gender: M : 1950 Exam Date: 02/18/2022 12:55 Ordering Phys: Rashi Last MD Technologist: Yasir Juarez Exam Location: [facility] [place] Indication: congestive heart failure BP: 134 / 64 HR: 103 Rhythm: Sinus Technical Quality: Adequate MEASUREMENTS (Male / Female) Normal Values 2D ECHO LV Diastolic Diameter PLAX 4.3 cm 4.2 - 5.9 / 3.9 - 5.3 cm LV Systolic Diameter PLAX 2.5 cm IVS Diastolic Thickness 1.1 cm 0.6 - 1.0 / 0.6 - 0.9 cm IVS Systolic Thickness 1.7 cm LVPW Diastolic Thickness 1.5 cm 0.6 - 1.0 / 0.6 - 0.9 cm LVPW Systolic Thickness 1.6 cm LVOT Diameter 2.0 cm LV Ejection Fraction 2D Teich 72.0 % LV Ejection Fraction MOD 2C 57.8 % LV Ejection Fraction 2C AL 56.2 % LA Diameter 4.8 cm Aorta at Sinotubular Diameter 2.6 cm IVC Diameter 2.1 cm M-MODE LV Diastolic Diameter MM 4.9 cm 4.2 - 5.9 / 3.9 - 5.3 cm LV Systolic Diameter MM 2.9 cm LV Ejection Fraction MM Teich 70.3 % IVS Diastolic Thickness MM 1.3 cm 0.6 - 1.0 / 0.6 - 0.9 cm IVS Systolic Thickness MM 2.1 cm LVPW Diastolic Thickness MM 1.5 cm 0.6 - 1.0 / 0.6 - 0.9 cm LVPW Systolic Thickness MM 1.9 cm RV Diastolic Diameter MM 1.1 cm Aortic Annulus Diameter 2.8 cm LA Ao Ratio MM 1.7 MV E Point Septal Separation 1.1 cm DOPPLER AV Peak Velocity 99.0 cm/s LVOT Peak Velocity 92.0 cm/s AV Area Cont Eq vti 3.0 cm squared AV Area Cont Eq pk 3.0 cm squared MV Area PHT 5.0 cm squared Mitral E to A Ratio 3.6 MV E' Velocity 56.5 cm/s Mitral E to MV E' Ratio 7.6 Mitral E to LV E' Lateral Ratio 7.2 Mitral E to LV E' Septal Ratio 8.1 TR Peak Velocity 207.0 cm/s TR Peak Gradient 17.1 mmHg TV Peak E Velocity 98.0 cm/s Right Atrial Pressure 3.0 mmHg Pulmonary Artery Systolic Pressu 20.1 mmHg PV Peak Velocity 101.0 cm/s FINDINGS Left Ventricle Mild diffuse hypokinesia of the septum in the anteroseptal segments. LV ejection fraction around 50% Right Ventricle The right ventricle is normal in size and function. Right Atrium The right atrium is normal in size. Left Atrium Mildly increased left atrial size. Mitral Valve Thickened mitral valve. Mild mitral annular calcification. Mild mitral valve regurgitation. Aortic Valve Mild aortic valve calcification. Tricuspid Valve Trace tricuspid valve regurgitation. Estimated pulmonary artery peak systolic pressure 20 mmHg Pulmonic Valve Pulmonic valve not well visualized. Pericardium Normal pericardium without effusion. Aorta Normal ascending aorta dimension. IVC The inferior vena cava pulmonary and hepatic veins appear normal. CONCLUSIONS Mild diffuse hypokinesia of the septum in the anteroseptal segments. LV ejection fraction around 50%. Trace tricuspid valve regurgitation. Estimated pulmonary artery peak systolic pressure 20 mmHg Mild aortic valve calcification. Mild mitral annular calcification. Mild mitral valve regurgitation. There is no pericardial effusion. There are no intracardiac masses. Mildly increased left atrial size. No previous study is available for comparison. Dr Lucius Stapleton MD [facility] (Electronically Signed) Final Date: 18 February 2022 23:16 S
[2022-02-18 10:59] LABS: Glucose Point of Care 210 mg/dL (70-110)
[2022-02-18 11:04] LABS: C Reactive Protein 16.2 mg/L (0.0-4.9)
[2022-02-18] MEDS: FUROsemide 10 mg/mL SDV 10mL 80 MG IVP ×2 (11:22→22:37)
[2022-02-18 18:03] LABS: Glucose Point of Care 217 mg/dL (70-110)
[2022-02-18] MEDS: ipratropium-albuterol 3 mL Neb INHALATION (20:39)
[2022-02-18 21:27] LABS: Glucose Point of Care 169 mg/dL (70-110)
[2022-02-18] MEDS: clopidogrel 75 mg Tablet PO (21:33)
[2022-02-18] MEDS: atorvastatin 40 mg Tablet PO (21:33)
[2022-02-18] MEDS: aspirin 81 mg Chew Tablet PO (21:33)
[2022-02-18] MEDS: ALPRAZolam 0.5 mg Tablet 0.25 MG PO (21:34)
[2022-02-19] VITALS (11 sets, daily range): BP systolic 113–167; BP diastolic 68–90; PULSE 79–90; RESP 15–26; TEMP 35.6–36.6; O2SAT 96–100
[2022-02-19 05:04] LABS: Basophils % 0.1 %; Hemoglobin 7.5 g/dL (11.7-16.6); Lymphocytes # 0.4 10^3/uL (0.8-4.8); Lymphocytes % 5.1 %; Mean Corpuscular HGB Conc 31.3 g/dL (30.0-36.0); Mean Corpuscular Hemoglobin 29.6 pg (28.0-34.0); Mean Corpuscular Volume 94.9 fl (80-94); Mean Platelet Volume 11.8 fL (7.4-10.4); Monocytes # 0.2 10^3/uL (0.2-0.9); Neutrophils # 7.82 10^3/uL (1.8-7.7); Neutrophils % 91.4 %; Nucleated Red Blood Cells % 0 %; Platelet Count 151 10^3/cmm (130-400); Red Blood Count 2.53 10^6/uL (4.1-5.3); Red Cell Distribution Width 17.3 % (12.1-15.1); White Blood Count 8.6 10^3/uL (4.0-10.0)
[2022-02-19 05:35] LABS: Anion Gap 21.6 (5-19); Blood Urea Nitrogen 61 mg/dL (8-23); Calcium 8.1 mg/dL (8.5-10.5); Carbon Dioxide 24 mmol/L (22-29); Chloride 90 mmol/L (98-107); Glomerular Filtration Rate 5.1 mL/min (90-130); Glucose 461 mg/dL (65-115); Iron 85 ug/dL (59-158); Osmolality Calculated 309 mOsm/kg (285-295); Percent Saturation 51.5 % (20-50); Potassium 4.6 mmol/L (3.5-5.1); Sodium 131 mmol/L (136-145); Total Iron Binding Capacity 165 mcg/dl; Unsaturated Iron Binding 80 ug/dL (112-347)
[2022-02-19 05:40] LABS: Procalcitonin 0.87 ng/mL (0-0.5)
[2022-02-19] MEDS: cefTRIAXone 1,000 MG in sodium chloride 0.9% (plus) 50 ML 100 MG IV (05:43)
[2022-02-19 06:00] LABS: Ferritin 1118 ng/mL (30-400)
[2022-02-19 06:41] LABS: Glucose Point of Care 449 mg/dL (70-110)
[2022-02-19] MEDS: insulin lispro 100 unit/1 mL SUBCUT (08:29)
[2022-02-19] MEDS: pantoprazole DR 40 mg Tablet PO (08:30)
[2022-02-19] MEDS: sevelamer 800 mg Tablet 1600 MG PO ×3 (08:30→18:02)
[2022-02-19] MEDS: doxycycline 100 mg Tablet PO ×2 (08:30→18:02)
[2022-02-19] MEDS: levothyroxine 175 mcg Tablet PO (08:30)
--- NOTE | 2022-02-19 09:18 | PM.PN ---
Subjective Subjective: breathing better. has been out of bed no significant urine output in response to IV lasix PD net UF 2279 ml - 4.25% dianeal resulted in significant increase in glucose - has Dexcom CGM Vitals/I&O/Wt Last Vital Signs Temp 97.8 F 02/19/22 08:00 Pulse 87 02/19/22 09:00 Resp 20 H 02/19/22 09:00 BP 134/76 02/19/22 08:00 Pulse Ox 97 02/19/22 09:00 02/18/22 02/19/22 02/19/22 22:59 06:59 14:59 Intake Total 0 / 290 250 / 540 360 / 360 Balance 0 / 290 250 / 540 360 / 360 Weight last 48 hrs Weight 92.986 kg Weight 95.254 kg Physical Exam Const: COMMON NORMALS: no acute distress and alert Extremity: NARRATIVE EXTREMITY EXAM: no edema Neuro: SENSORIUM/ORIENTATION: Yes alert Data : 02/19/22 04:49 02/19/22 04:49 Micro: Microbiology 02/17/22 19:40 Blood Culture - Preliminary Blood NEGATIVE TO DATE 02/17/22 19:49 Blood Culture - Preliminary Blood NEGATIVE TO DATE A&P Assessment and plan (1) End stage renal disease: Status: Acute Plan Telemedicine consult performed with assistance of RN at bedside. 1. ESRD on peritoneal dialysis (cycler) 2. Pneumonia 3. Fluid overload; hypervolemic hyponatremia 4. Anemia, iron replete. epogen today 5. Hyperglycemia: increase insulin Rec: d/c IV lasix. PD tonight: all 2.5%, continue to dwell with icodextrin during day. performing PD cycler set up and disconnect. Antibiotic ointment to exit site.? Has outpatient nephrology appointment February 28 Attestations Medical Necessity Statement*: per primary service Time Spent in Patient Care: 16 - 35 minutes Coding Level of Care Code Acute Psychologist Private Practice for Chg Fwd Exam Problem Focused Diagnoses End stage renal disease N18.6
--- NOTE | 2022-02-19 11:09 | PM.PN ---
Subjective Subjective: Morning patient is endorsing feeling better, he is not experiencing conversational dyspnea or using his shoulder girdle He is endorsing feeling much better Lasix discontinued today, appreciate nephro recommendations Low hemoglobin noted, he will get epogen today Noted septal wall motion abnormality, will request cardiac stress test tomorrow morning, Patient was notified about his pulmonary nodule change in dimensions and follow-up with pulmonary outpatient Vitals/I&O/Wt Last Vital Signs Temp 97.8 F 02/19/22 08:00 Pulse 87 02/19/22 09:00 Resp 20 H 02/19/22 09:00 BP 134/76 02/19/22 08:00 Pulse Ox 97 02/19/22 09:00 02/18/22 02/19/22 02/19/22 22:59 06:59 14:59 Intake Total 0 / 290 250 / 540 360 / 360 Balance 0 / 290 250 / 540 360 / 360 Weight last 48 hrs Weight 92.986 kg Weight 95.254 kg Physical Exam Narrative: This morning patient was laying supine In good mood Pleasant cooperative Does not look fluid overloaded Bilateral breath sounds, clear Abdomen soft Peritoneal dialysis catheter in place Awake and alert Nonfocal neuro exam is at the bedside Patient is doing well on 2 L nasal cannula no use of respiratory sensory muscles, no conversational dyspnea, tachypnea or use of shoulder girdle Data : 02/19/22 04:49 02/19/22 04:49 Micro: Microbiology 02/17/22 19:40 Blood Culture - Preliminary Blood NEGATIVE TO DATE 02/17/22 19:49 Blood Culture - Preliminary Blood NEGATIVE TO DATE A&P Assessment and plan (1) End stage renal disease: Status: Acute (2) Hypoxia: Status: Acute (3) Bronchitis: Status: Acute (4) Community acquired pneumonia: Status: Acute (5) Gastroparesis: Status: Acute (6) Diabetes: Status: Chronic Qualifiers: Diabetes mellitus type: type 2 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: with senior care use Diabetes mellitus complication status: with kidney complications Diabetes mellitus complication detail: with chronic kidney disease Chronic kidney disease stage: on chronic dialysis Qualified Code(s): E11.22 - Type 2 diabetes mellitus with diabetic chronic kidney disease; N18.6 - End stage renal disease; 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; Z99.2 - Dependence on renal dialysis (7) Weakness: Status: Acute (8) Pulmonary nodule: Status: Acute Plan Acute hypoxia related to pneumonia Currently on 2 L Not using shoulder girdle or experiencing conversational dyspnea today Hypoxia improved He has been diagnosed with community-acquired pneumonia Continue antibiotics Discontinue diuretics Leukocytosis improved, afebrile Peritoneal dialysis dependent, appreciate nephro recommendations Anemia of chronic disease he will get Epogen today No active GI bleed Parkinson's disease no acute exacerbation He has a deep brain stimulator, has not been using carbidopa levodopa ropinirole Blood pressure has been stable Atypical chest pain, septal wall motion abnormality, no recurrence of chest pain during hospitalization, EKG did not show ischemic or infarctive changes, noticed atrial flutter, I will request telemetry monitoring for now he is not on any anticoagulating agent no previous history of A. fib related flutter I requested cardiac stress test for tomorrow morning Pulmonary nodule, dimensions have increased to 8 mm, he will need outpatient pulmonary follow-up Plan to discharge him tomorrow Patient does not want to be intubated in case of respiratory arrest however he is allowing us to do chest compressions, is aware Attestations Medical Necessity Statement*: Discharge tomorrow Time Spent in Patient Care: 35 Coding Level of Care Code Acute Collection Team Lead for g Fwd Diagnoses End stage renal disease N18.6 Hypoxia R09.02 Bronchitis J40 Community acquired pneumonia J18.9 Gastroparesis K31.84 Diabetes E11.22; N18.6; Z79.4; Z99.2 Diabetes mellitus type: type 2 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
--- NOTE | 2022-02-19 12:23 | PC.NURSE ---
Notified Dr. Last the patient/[facility] stated they will be taking care of all the blood sugars and insulin. They take care of all of his PD dialysis. has nette on phone to see blood sugar every 5 min.
[2022-02-19] MEDS: heparin 5,000 unit/mL INJ 1 mL 5000 UNIT SUBCUT ×2 (13:12→23:27)
[2022-02-19 14:05] LABS: Estmated Average Glucose 140; Hemoglobin A1C 6.5 % (4.0-6.0)
--- NOTE | 2022-02-19 15:36 | PC.NURSE ---
Procrit was cancelled and reordered due to delay in pharmacy.
[2022-02-19] MEDS: epoetin alfa 1000 Unit/0.05 mL (ESRD) 20000 UNIT SUBCUT (16:14)
[2022-02-19 21:20] LABS: Glucose Point of Care 267 mg/dL (70-110)
[2022-02-19] MEDS: aspirin 81 mg Chew Tablet PO (21:23)
[2022-02-19] MEDS: clopidogrel 75 mg Tablet PO (21:23)
[2022-02-19] MEDS: atorvastatin 40 mg Tablet PO (21:23)
[2022-02-19] MEDS: ALPRAZolam 0.5 mg Tablet PO (21:23)
[2022-02-20] VITALS (12 sets, daily range): BP systolic 117–159; BP diastolic 63–83; PULSE 59–100; RESP 12–18; TEMP 35.8–36.6; O2SAT 91–100
[2022-02-20 05:06] LABS: Basophils % 0.1 %; Hematocrit 23.6 % (42.0-52.0); Hemoglobin 7.9 g/dL (11.7-16.6); Lymphocytes # 0.5 10^3/uL (0.8-4.8); Lymphocytes % 4.8 %; Mean Corpuscular HGB Conc 33.5 g/dL (30.0-36.0); Mean Corpuscular Hemoglobin 29.6 pg (28.0-34.0); Mean Corpuscular Volume 88.4 fl (80-94); Mean Platelet Volume 11.6 fL (7.4-10.4); Monocytes # 0.2 10^3/uL (0.2-0.9); Monocytes % 2.2 %; Neutrophils # 9.47 10^3/uL (1.8-7.7); Neutrophils % 90.3 %; Nucleated Red Blood Cells % 0 %; Platelet Count 145 10^3/cmm (130-400); Red Blood Count 2.67 10^6/uL (4.1-5.3); Red Cell Distribution Width 17.1 % (12.1-15.1); White Blood Count 10.5 10^3/uL (4.0-10.0)
[2022-02-20 05:26] LABS: Anion Gap 17.9 (5-19); Blood Urea Nitrogen 66 mg/dL (8-23); Calcium 8.3 mg/dL (8.5-10.5); Carbon Dioxide 26 mmol/L (22-29); Chloride 95 mmol/L (98-107); Glomerular Filtration Rate 5.2 mL/min (90-130); Glucose 180 mg/dL (65-115); Magnesium 1.8 mg/dL (1.7-2.3); Osmolality Calculated 304 mOsm/kg (285-295); Potassium 3.9 mmol/L (3.5-5.1); Sodium 135 mmol/L (136-145)
[2022-02-20] MEDS: cefTRIAXone 1,000 MG in sodium chloride 0.9% (plus) 50 ML 100 MG IV (06:02)
[2022-02-20 06:16] LABS: Glucose Point of Care 249 mg/dL (70-110)
--- NOTE | 2022-02-20 06:49 | ECG_ITS ---
[facility] Test Date: 2022-02-20 Pat Name: Anshu Hurt Department: Room: 255 Gender: Male Medicare Sales Executive: Elizabeth Quezada : 1950 Requested By: Rashi Last Order Number: [id number] Murtaza MD: Lucius Stapleton M.D. Interpretive Statements NAME OF STUDY: LEXISCAN SESTAMIBI STRESS TEST INDICATION: Unstable angina, PROCEDURE: At the baseline, the EKG revealed normal sinus rhythm with diffuse nonspecific ST changes. The baseline blood pressure was 152/87 mm Hg with a heart rate of 72 beats/min. Lexiscan was infused over a period of 20 seconds. A total of 0.4 milligrams of Lexiscan was infused. The stress phase was continued for a total of 5 minutes. Heart rate at the end of the stress phase was 85 with a blood pressure 137/83. The EKG at the peak infusion revealed no significant changes. Sestamibi was injected 20 seconds after the Lexiscan infusion. Blood pressure at the end of the recovery phase was 146/78 with a heart rate of 84 per minute. CONCLUSION: 1. No significant EKG changes with the LexiScan infusion 2. No LexiScan induced chest pain or cardiac arrhythmia 3. Normal blood pressure and heart rate response 4. Sestamibi/sestamibi perfusion scan pending; see separate report. Electronically Signed On 02-22-2022 18:44:52 CDT by Lucius Stapleton M.D. [email or web address]
[2022-02-20] MEDS: regadenoson 0.4 Mg/5 ml Syringe IVP (07:22)
--- NOTE | 2022-02-20 07:30 | PC.NURSE ---
to stress test
--- NOTE | 2022-02-20 08:03 | NMCV_ITS ---
NM to perf SPECT r/s* [id number] Anshu Hurt Age: 72 Gender: M : 1950 Exam Date: 02/20/2022 06:43 Ordering Phys: Rashi Last MD Technologist: NATY Dawson Exam Location: [facility] Indications: CHEST PAIN STRESS TEST Please see separate stress test report in [facility] for full findings IMAGE PROTOCOL Rest/Stress 1 Lexiscan Day Radiopharmaceutical Dose (mCi) Administration Site Administered by Rest: Tc-99m 10.4 IV NATY Larkin Sestamibi Stress:Tc-99m 33.0 IV NATY Larkin Sestamibi Rest: 20-Feb-2022 60 Discovery 630 Stress: 20-Feb-2022 30 Discovery 630 0.4mg Lexiscan. Images obtained in supine and prone position. SPECT RESULTS Technical Quality: Excellent Raw Data Analysis: Normal Image Corrections: No attenuation or motion correction applied Summed Stress Score: 7 Summed Rest Score: 0 Summed Difference Score: 7 PERFUSION FINDINGS There is a medium sized, mostly reversible perfusion defect seen in inferolateral wall. This is consistent with ischemia in the left circumflex artery territory. FUNCTIONAL RESULTS (calculated via Gated SPECT) Stress Image LV EF (%): 43 Stress EDV (mL):184 TID: 1.04 Stress ESV (mL):105 FUNCTIONAL FINDINGS: LV systolic function is mildly reduced with EF of 43%. IMPRESSIONS 1. Abnormal myocardial perfusion imaging with medium sized area of ischemia seen in left circumflex artery territory. 2. LV systolic function is mildly reduced with EF of 43%. Lino Javier MD (Electronically Signed) Final Date: 20 February 2022 09:05 S
[2022-02-20] MEDS: levothyroxine 175 mcg Tablet PO (09:33)
[2022-02-20] MEDS: doxycycline 100 mg Tablet PO ×2 (09:33→16:40)
[2022-02-20] MEDS: pantoprazole DR 40 mg Tablet PO (09:36)
[2022-02-20] MEDS: heparin 5,000 unit/mL INJ 1 mL 5000 UNIT SUBCUT ×2 (10:16→22:24)
[2022-02-20] MEDS: insulin lispro 100 unit/1 mL 10 UNIT SUBCUT ×2 (10:16→16:46)
[2022-02-20] MEDS: sevelamer 800 mg Tablet 1600 MG PO ×2 (10:18→16:41)
[2022-02-20 11:34] LABS: Glucose Point of Care 222 mg/dL (70-110)
[2022-02-20] MEDS: insulin lispro 100 unit/1 mL SUBCUT (12:49)
--- NOTE | 2022-02-20 13:08 | PM.PN ---
Subjective Subjective: feels much better. not requiring oxygen + stress test today, awaiting cardiology evaluation Vitals/I&O/Wt Last Vital Signs Temp 96.4 F L 02/20/22 04:00 Pulse 80 02/20/22 12:00 Resp 17 02/20/22 12:00 BP 159/83 02/20/22 12:00 Pulse Ox 97 02/20/22 12:00 02/19/22 02/20/22 02/20/22 22:59 06:59 14:59 Intake Total 333 / 1093 50 / 50 Output Total 0 / 0 Balance 333 / 1093 0 / 1093 50 / 50 reports PD fluid clear, UF > 2L Data : 02/20/22 04:32 02/20/22 04:32 Other Labs: Ca 8.3, Mg 1.8 Other data: ?1.? Abnormal myocardial perfusion imaging with medium sized area of ischemia?seen in left circumflex artery territory. ?2.? LV systolic function is mildly reduced with EF of 43%. A&P Assessment and plan (1) End stage renal disease: Status: Acute Plan Telemedicine consult performed with assistance of RN at bedside. 1. ESRD on peritoneal dialysis (cycler) 2. Pneumonia, much improved 3. Fluid overload; hypervolemic hyponatremia 4. Anemia, iron replete. Hb stable, received epogen 5. Hyperglycemia: improved Rec: continue nightly PD, all 2.5% dianeal, continue to dwell with icodextrin during day. performing PD cycler set up and disconnect. Antibiotic ointment to exit site.? Has outpatient nephrology appointment February 28 Attestations Medical Necessity Statement*: per primary service Time Spent in Patient Care: 16 - 35 minutes Coding Level of Care Code Acute Otter Trawler Boatswain for Anatoliy Hickman Diagnoses End stage renal disease N18.6
--- NOTE | 2022-02-20 13:17 | P.PN_ITS ---
Subjective Subjective: Stress test is positive for LAD distribution which would correlate with septum hypokinesia I had patient go up and down the stairs, he became extremely short of breath on exertion, no active chest pain He is off oxygen, on room air his O2 saturation has stayed above 95% Because of exertional shortness of breath patient had decided to stay for an angiogram, will update cardiology and consult Dr. Javier Vitals/I&O/Wt Last Vital Signs Temp 96.4 F L 02/20/22 04:00 Pulse 80 02/20/22 12:00 Resp 17 02/20/22 12:00 BP 159/83 02/20/22 12:00 Pulse Ox 97 02/20/22 12:00 02/19/22 02/20/22 02/20/22 22:59 06:59 14:59 Intake Total 333 / 1093 50 / 50 Output Total 0 / 0 Balance 333 / 1093 0 / 1093 50 / 50 Physical Exam Narrative: Patient is experiencing exertional shortness of breath No active chest pain Hemodynamically stable Off oxygen currently on room air Nonfocal neuro exam Abdomen soft Looks euvolemic Peritoneal dialysis catheter in place at the bedside Data : 02/20/22 04:32 02/20/22 04:32 A&P Assessment and plan (1) Positive cardiac stress test: Status: Acute (2) Pulmonary nodule: Status: Acute (3) End stage renal disease: Status: Acute (4) Hypoxia: Status: Acute (5) Bronchitis: Status: Acute (6) Community acquired pneumonia: Status: Acute (7) Gastroparesis: Status: Acute (8) Essential tremor: Status: Acute (9) Diabetes: Status: Chronic Qualifiers: Diabetes mellitus type: type 2 Diabetes mellitus medical terminologist insulin use: with medical terminologist use Diabetes mellitus complication status: with kidney complications Diabetes mellitus complication detail: with chronic kidney disease Chronic kidney disease stage: on chronic dialysis Qualified Code(s): E11.22 - Type 2 diabetes mellitus with diabetic chronic kidney disease; N18.6 - End stage renal disease; Z79.4 - shelter (current) use of insulin; Z99.2 - Dependence on renal dialysis (10) Hypothyroidism (acquired): Status: Chronic (11) Parkinsonian tremor: Status: Chronic Plan Positive stress test: Patient is agreeable for staying for an angiogram, will update Dr. Javier He became extremely short of breath when he walked up and down the stairs This LAD distribution ischemia will correlate with his septum hypokinesia Acute hypoxia: Resolved Currently saturating well on room air Community-acquired pneumonia continue antibiotics Cultures negative to date Afebrile Peritoneal dialysis dependent end-stage renal disease appreciate nephro recommendations We will coordinate with nephrology for angiogram Hyperglycemia for type 2 diabetes, adjusted insulin regimen I have increased his Premeal and long-acting insulin doses Anemia of chronic disease hemoglobin stable at 7.9 Parkinson disease status post TBI, no acute exacerbation He is not taking antiparkinsonian medications of ropinirole Patient does not want to be intubated in case of any cardiac arrest or respiratory failure, he is okay with chest compressions and defibrillation, revisit goals of care with his in case of an emergency Renal dialysis diet DVT prophylaxis: Heparin Attestations Medical Necessity Statement*: Patient will stay for an angiogram Time Spent in Patient Care: 40 Coding Level of Care 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
--- NOTE | 2022-02-20 13:24 | PC.NURSE ---
PD patient stated to computer consultant stated she had output of 2400 and kept the green top per dr dior. Dr dior instructed to empty PD after cath and w/out icodextrin. verbalizes understanding.
--- NOTE | 2022-02-20 15:30 | P.CONIM_ITS ---
Providers/Reason For Consult Consulting Physician/Specialty*: Lino Javier MD/Cardiology Reason for Consult*: Chest pain/abnormal stress test Requesting Physician: Dr Last Attending Physician: Rashi Last MD Primary Care Provider: Irene Jones History of Present Illness History of Present Illness Anshu Hurt is a 72 year old male with past medical history of coronary artery disease, hypertension, diabetes, end-stage renal disease on peritoneal dialysis and Parkinson's disease has presented with dyspnea on exertion and chest pain. Patient has been having the symptoms over the last 1 week. He also has cough. Secondary to his symptoms, stress test was done that showed moderate sized ischemia in left circumflex artery territory. Patient's initial troponin was elevated and was at 374. At 2 hours a trended up to 385. ECHO showed mildly reduced LV systolic function with EF of 50% with hypokinesis of anteroseptal wall. Review of Systems General: Reports: 10 or more systems reviewed and unremarkable except in HPI and below Const: Denies: fever(s), chills or body aches Eyes: Denies: change in vision, blurry vision or photophobia ENMT: Reports: hoarseness; Denies: throat pain, enlarged tonsils, odynophagia or nasal congestion Card: Reports: chest pain and dyspnea on exertion; Denies: palpitations, irregular heart rhythm, edema, swelling of feet/ankles, lightheadedness, pre-syncope or orthopnea Resp: Denies: dyspnea, productive cough, non-productive cough, wheezing, stridor, pain on inspiration, change in phlegm color, hemoptysis or chest congestion GI: Denies: abdominal pain, nausea, vomiting, hematemesis, coffee ground emesis, dysphagia, heartburn, diarrhea, constipation, GI cramping, change in stool character, hematochezia or melena : Denies: flank pain, dysuria, urinary frequency, urinary urgency, urinary hesitancy or hematuria Musc: Denies: neck pain, back pain, extremity pain, joint swelling, joint warmth or deformity Neuro: Denies: headache(s), numbness in extremities, weakness in extremities, sensory changes, difficulty walking, frequent falls, dizziness, vertigo, behavioral changes, Slurred speech present or seizure-like activity Psych: Denies: anxiety, depression, suicidal ideation or homicidal ideation Endo: Denies: polyuria, polydipsia, tired all the time, cold intolerance or hot flashes Cralos/Lymph: Denies: easy bruising or easy bleeding Medications/Allergies Home Medications Medication Instructions Recorded Confirmed Last Taken Type insulin aspart U-100 100 unit/mL See Rx Instructions .ROUTE .COMPLEX 09/05/19 02/18/22 Unknown History (3 mL) subcutaneous pen (Novolog Flexpen U-100 Insulin aspart) omeprazole 20 mg capsule,delayed 20 mg PO BID 09/05/19 02/18/22 Unknown History release potassium chloride 20 mEq 20 meq PO QAM 09/05/19 02/18/22 Unknown History tablet,extended release insulin glargine 100 unit/mL (3 See Rx Instructions .ROUTE .COMPLEX 10/24/20 02/18/22 Unknown History mL) subcutaneous pen (Basaglar KwikPen U-100 Insulin) magnesium oxide 400 mg (241.3 mg 400 mg PO QAM 10/24/20 02/18/22 Unknown History magnesium) tablet (MagOx) albuterol sulfate 90 mcg/actuation 2 inh INHALATION Q6H PRN #8 gm 02/17/22 02/18/22 Unknown Rx aerosol inhaler calcium acetate(phosphat bind) 667 See Rx Instructions .ROUTE .COMPLEX 02/18/22 02/18/22 Unknown History mg capsule cholecalciferol (vitamin D3) 1,250 50,000 unit PO Q7D 02/18/22 02/18/22 Unknown History mcg (50,000 unit) capsule ciprofloxacin HCl 500 mg tablet 500 mg PO BID 02/18/22 02/18/22 Unknown History doxycycline hyclate 100 mg tablet 100 mg PO BID 02/18/22 02/18/22 Unknown History levothyroxine 150 mcg tablet 150 mcg PO QAM 02/18/22 02/18/22 Unknown History (Euthyrox) [id number] See Rx Instructions .ROUTE .COMPLEX 02/18/22 02/18/22 Unknown History 12,000-38,000-60,000 unit capsule,delayed rel (Creon) metoprolol succinate 50 mg capsule 25 mg PO BEDTIME PRN 02/18/22 02/18/22 Unknown History sprinkle, ext. release 24 hr prednisone 50 mg tablet 50 mg PO DAILY 02/18/22 02/18/22 Unknown History pregabalin 150 mg capsule (Lyrica) 150 mg PO BEDTIME 02/18/22 02/18/22 Unknown History sertraline 50 mg tablet 75 mg PO QPM 02/18/22 02/18/22 Unknown History amoxicillin 875 mg-potassium 1 tab PO BID #10 tab 02/21/22 Unknown Rx clavulanate 125 mg tablet aspirin 81 mg tablet,delayed 81 mg PO BEDTIME #120 tab 02/21/22 Unknown Rx release atorvastatin 40 mg tablet 40 mg PO QPM #90 tab 02/21/22 Unknown Rx clopidogrel 75 mg tablet 75 mg PO DAILY@2100 #120 tab 02/21/22 Unknown Rx Allergies Allergy/AdvReac Type Severity Reaction Status Date / Time No Known Allergies Allergy Verified 02/18/22 08:34 Current Medications Generic Name Dose Route Start Last Admin Trade Name Freq PRN Reason Stop Dose Admin Albuterol/Ipratropium 3 ml 02/17/22 23:06 02/18/22 20:39 Ipratropium-Albuterol 3 Ml Neb INHALATION 3 ml Q6H PRN Administration SHORTNESS OF BREATH Aspirin 81 mg 02/18/22 21:00 02/19/22 21:23 Aspirin 81 Mg Chew Tablet PO 81 mg DAILY@2100 SHAMAR Administration Atorvastatin Calcium 40 mg 02/18/22 21:00 02/19/22 21:23 Atorvastatin 40 Mg Tablet PO 40 mg DAILY@2100 SHAMAR Administration Clopidogrel Bisulfate 75 mg 02/18/22 21:00 02/19/22 21:23 Clopidogrel 75 Mg Tablet PO 75 mg DAILY@2100 SHAMAR Administration Doxycycline Monohydrate 100 mg 02/18/22 09:00 02/20/22 09:33 Doxycycline 100 Mg Tablet PO 02/22/22 08:59 100 mg BID SHAMAR Administration Protocol Heparin Sodium (Porcine) 5,000 unit 02/17/22 23:15 02/20/22 10:16 Heparin 5,000 Unit/Ml Inj 1 Ml SUBCUT 5,000 unit Q12H SHAMAR Administration Ceftriaxone Sodium 1,000 mg/ 50 mls @ 100 mls/hr 02/18/22 05:45 02/20/22 09:50 Sodium Chloride IV Infused Q24H SHAMAR Infusion Protocol Insulin Human Lispro 0 unit 02/18/22 08:00 02/20/22 12:49 Insulin Lispro 100 Unit/1 Ml SUBCUT 10 unit WM&BEDTIME SHAMAR Administration Protocol Insulin Human Lispro 10 unit 02/20/22 11:00 02/20/22 10:16 Insulin Lispro 100 Unit/1 Ml SUBCUT 10 unit AC SHAMAR Administration Levothyroxine Sodium 175 mcg 02/18/22 09:00 02/20/22 09:33 Levothyroxine 175 Mcg Tablet PO 175 mcg DAILY SHAMAR Administration Pantoprazole Sodium 40 mg 02/18/22 09:00 02/20/22 09:[address] 40 Mg Tablet PO 40 mg DAILY SHAMAR Administration Sevelamer Carbonate 1,600 mg 02/18/22 08:00 02/20/22 10:18 Sevelamer 800 Mg Tablet PO 1,600 mg TIDWM SHAMAR Administration PFSH Acute PFSH: Medical History Depression Diabetes Gout Hyperlipidemia Hypertension Hypothyroidism (acquired) Pancreatitis takes chronic pancrease Peritoneal dialysis catheter in place Stage 5 chronic kidney disease Tremor Vitiligo Surgical History History of appendectomy History of carpal tunnel release left wrist 1975 History of cholecystectomy Family History Other CAD (coronary artery disease) Cancer Diabetes Hypertension Denies family history of Stroke Social History Smoking and tobacco status: former smoker Quit status (tobacco): has quit using tobacco Year quit tobacco: 1992 Alcohol intake: never Household members: spouse Marital status: Vitals/I&O/Wt Last Vital Signs Temp 96.4 F L 02/20/22 04:00 Pulse 80 02/20/22 12:00 Resp 17 02/20/22 12:00 BP 159/83 02/20/22 12:00 Pulse Ox 97 02/20/22 12:00 02/20/22 02/20/22 02/20/22 06:59 14:59 22:59 Intake Total 410 / 410 Output Total 0 / 0 Balance 0 / 1093 410 / 410 Physical Exam Narrative: GENERAL: Patient is alert, awake and oriented x3. [] NECK: No jugular vein distension. [] HEENT: No cyanosis. No icterus. No pallor. [] HEART: Regular S1 and S2. No murmur, rub or gallop. [] LUNGS: Clear to auscultate bilaterally. [] ABDOMEN: Soft, nontender and nondistended. Positive bowel sounds. No guarding, rebound or tenderness. [] CENTRAL NERVOUS SYSTEM: Grossly nonfocal. [] EXTREMITIES: Lower extremities with 1+ edema bilaterally. Pulses palpable in the lower extremities, both dorsalis pedis and posterior tibial. [] Data : 02/21/22 04:58 02/21/22 04:58 A&P Assessment and plan (1) ESRD (end stage renal disease): Status: Acute (2) Positive cardiac stress test: Status: Acute (3) Hyperlipidemia: Status: Chronic Qualifiers: Hyperlipidemia type: unspecified Qualified Code(s): E78.5 - Hyperlipidemia, unspecified (4) Hypertension: Status: Chronic Qualifiers: Hypertension type: essential hypertension Qualified Code(s): I10 - Essential (primary) hypertension (5) Troponin level elevated: Status: Acute Plan Patient has troponin elevation, chest pain and shortness of breath. Stress test is abnormal. We will proceed with coronary angiogram tomorrow NPO past midnights. Continue aspirin and plavix Anticoagulation ECHO shows borderline low to normal LV systolic function Thank you for involving us with care of this patient. We will continue to follow. Please call with questions. Consult Attestations Medical Necessity Statement: Care expected to cross 2 midnights. 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
[2022-02-20 16:37] LABS: Glucose Point of Care 118 mg/dL (70-110)
[2022-02-20 18:41] LABS: Quest SARS-CoV-2 RNA NOT DETECTED (NOT DETECTED)
[2022-02-20] MEDS: ipratropium-albuterol 3 mL Neb INHALATION (21:06)
[2022-02-20] MEDS: budesonide 0.5 mg/2 mL Neb INHALATION (21:06)
[2022-02-20] MEDS: clopidogrel 75 mg Tablet PO (22:23)
[2022-02-20] MEDS: aspirin 81 mg Chew Tablet PO (22:23)
[2022-02-20] MEDS: atorvastatin 40 mg Tablet PO (22:23)
[2022-02-21] VITALS (37 sets, daily range): BP systolic 100–174; BP diastolic 54–104; PULSE 62–124; RESP 10–25; TEMP 36.3–36.6; O2SAT 88–99
--- NOTE | 2022-02-21 | XACV_ITS ---
Exam Room: [facility] Ht: 180 cm Wt: 93 kg BSA: 2.18 m2 Gender: Male : 1950 Any Known Allergies: No known allergies Exam Priority: Routine Procedure(s): Procedure Description: Diagnostic procedure Procedure Description: PCI procedure Procedure Description: Drug Eluting Coronary Stent Procedure Description: PTCA Procedure Description: Miscellaneous Procedure Description: ACT Procedure Description: Coronary Angiography Diagnostic Cath Status: Urgent Diagnostic Findings * Left Main mild 20% ostial stenosis. * Mid Left Anterior Descending: moderate 40% stenosis, JOANNA: 3 flow. * Ostial to Proximal Right Coronary Artery: significant 80% stenosis, JOANNA: 3 flow. * Ostial to Proximal Circumflex: severe, calcified 90% stenosis, JOANNA: 3 flow. * INDICATION: NSTEMI/ Abnormal stress test. * Coronary angiography shows right dominance. PCI Status: Urgent PCI Indication: NSTE - ACS Interventional Findings * PROCEDURE DETAIL: We engaged RCA with JR4 guide catheter. IV heparin was administered with an ACT above 250 s. 0.014 cougar guidewire was used to cross ostial to proximal RCA stenosis. We predilated the stenosis with 2.75 x 15 mm noncompliant balloon. This was followed by placement of 3.5 x 30 mm resolute Wendel stent. We postdilated proximal part of the stent with 3.75 x 15 mm NC balloon. With then performed dilation with 3.5 x 12 mm NC balloon. At this time final angiogram was performed that showed excellent stent expansion and no residual stenosis. Guidewire and guide catheter were removed. We then turned our attention to ostial to proximal circumflex artery. Hurley guidewire was used to cross the stenosis and was put in distal vessel. We predilated the stenosis with 2.75 x 15 mm semicompliant balloon. We then placed 2.75 x 12 mm resolute Ruth drug-eluting stent. We postdilated ostial segment with 3.0 x 8 mm NC balloon. At this time final angiogram was performed that showed excellent stent expansion, no residual stenosis and JOANNA-3 flow. Wire and guide catheters were removed. 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 . * Proximal Right Coronary Artery: 80% stenosis treated with a AB TREK 2.75X15 RX BALLOON, MDT R RUTH 3.5X30 VIRGINIE, MDT NC EUPHORA RX 3.65X70ES BALLOON, and MDT NC EUPHORA RX [id number] BALLOON. 0% residual stenosis, JOANNA: 3 flow. * Proximal Circumflex: 90% stenosis treated with a AB TREK 2.75X15 RX BALLOON, MDT R RUTH 2.75X12 VIRGINIE, and MDT NC EUPHORA RX [id number] BALLOON. 0% residual stenosis, JOANNA: 3 flow. Conclusions 1. Severe ostial 2. left circumflex artery stenosis s/p successful revascularization with VIRGINIE x1. Severe ostial to proximal RCA stenosis s/p successful revascularization with VIRGINIE x1.. 3. Proximal Right Coronary Artery was treated with a Balloon, Drug Eluting Stent, Balloon, and Balloon. 4. Proximal Circumflex was treated with a Balloon, Drug Eluting Stent, and Balloon. Recommendations * Dual antiplatelet therapy with aspirin and Plavix for at least 1 year. * High intensity statin therapy. * Beta-catie therapy. * Outpatient cardiology follow-up in 4-week. Interventional RX Recommendation: PCI w/o planned CABG Diagnostic RX Recommendation: PCI w/o planned CABG Anticoagulation: Heparin Pressures Phase:Rest AO : 113 / 64 ( 87 ) @ 9:16:00 AM 95 / 65 ( 78 ) @ 9:31:00 AM 105 / 75 ( 86 ) @ 9:32:00 AM 84 / 50 ( 64 ) @ 9:42:00 AM 96 / 56 ( 71 ) @ 9:47:00 AM Clinical Evaluation EBL: 5mL-10mL Procedural Details Pre-Procedure Time Out. Identified patient by full name and date of as verbalized by the patient/guarantor. Does the consent match the physician's order: Yes. Accurate & Complete Informed Consent: Yes. Inpatient/Outpatient History & Physical on Chart: Yes. If H&P is completed, is and addenduem needed: No. Visualize and Verify Site with Patient/Guarantor: N/A. Relevant Radiology Images available: Yes. Pre-op teaching completed and patient verbalized understanding. The risks, benefits, and alternatives of sedation and/or procedure were discussed by physician. The patient agrees to continue. Procedure started. [facility] Clinical Fraility Score: 3: Managing Well. Mechanic Welder Truck Driver Indications: ACS > 24 hours/NSTEMI/Abnormal stress test. Chest Pain Symptom Assessment: Typical Angina Symptoms. Cardiovascular Instability: No. Correct patient, site and procedure confirmed by cath team. PERRLA. Strong, equal hand nutter up bilaterally. Lungs clear x 5 lobes. IV Site on Arrival: 18 gauge in the right forearm. IV Fluids: 0.9% NaCl at KVO. 0 mL infused prior to labor relations worker. Pre Procedural Pulses: bilateral radial was 3+. Pre Procedural Pulses: bilateral posterior tibial was 1+. Pre Procedural Pulses: bilateral dorsalis pedis was 2+. Oxygen started at 2liters/min via nasal canula. bilateral groins was prepped with chloroprep then draped in the usual sterile fashion. Physician notified. Baseline sample Acquired. HR: 70 BPM. Patient's family in the analytical lab technician waiting room. Dr. Javier will update at the completion of the procedure. Physician arrived. Physician scrubbed in. Immediate Pre-Procedure Time Out. Correct Patient: Yes; Correct Procedure: Yes; Correct Site: Yes; Correct Patient Position: Yes; Correct Supplies: Yes; Dried Flammable Prep: Yes; Blood Products Available: N/A. Lidocaine 1% infiltrated to the right groin. Arterial access obtained with micropuncture set. A 5 cape verdean JL4 catheter in over wire. Multiple views taken of left coronary artery. Catheter removed over the standard wire. A 5 cape verdean JR4 catheter in over wire. Multiple views taken of right coronary artery. Catheter removed over the standard wire. 6 cape verdean JR 4 SH guide catheter was inserted over the wire. Hurley guidewire was advanced through the guide catheter to lesion in the prox RCA. Inflation number : 1 A AB TREK 2.75X15 RX BALLOON was prepped and advanced across the Prox RCA , then inflated to 10 MIKE for 0:22 seconds. Inflation number: 2 The AB TREK 2.75X15 RX BALLOON was reinflated across the Prox RCA, to 8 MIKE for 0:31 seconds. Inflation number: 3 The AB TREK 2.75X15 RX BALLOON was reinflated across the Prox RCA, to 12 MIKE for 0:20 seconds. Inflation number: 4 The AB TREK 2.75X15 RX BALLOON was reinflated across the Prox RCA, to 8 MIKE for 0:29 seconds. Balloon out. Results checked. MDT R Ruth 3.5 x 30 VIRGINIE in and unable to cross, removed intact. Guideliner in. Inflation Number : 5 A MDT R RUTH 3.5X30 VIRGINIE -Lot Number# [id number] was prepped and advanced across the Prox RCA. The stent was deployed at 12 MIKE for 0:33 seconds. Exp. . Stent balloon out over wire. Inflation number : 6 A MDT NC EUPHORA RX [id number] BALLOON was prepped and advanced across the Prox RCA , then inflated to 12 MIKE for 0:27 seconds. Inflation number: 7 The MDT NC EUPHORA RX 3.14D81IV BALLOON was reinflated across the Prox RCA, to 10 MIKE for 0:15 seconds. Balloon out. Guideliner out. Results checked. Inflation number : 8 A MDT NC EUPHORA RX [id number] BALLOON was prepped and advanced across the Prox RCA , then inflated to 12 MIKE for 0:18 seconds. Inflation number: 9 The MDT NC EUPHORA RX 3.25Z75NF BALLOON was reinflated across the Prox RCA, to 14 MIKE for 0:17 seconds. Balloon out. Results checked. Wire out. ACT drawn. Results 363 seconds. Therapeutic limits - pre-heparin administration 90-150 seconds and monitoring heparin during a vascular procedure >250 seconds. Guide catheter out. 6 cape verdean XB 3.5 guide catheter was inserted over the wire. Hurley guidewire was advanced through the guide catheter to lesion in the prox Circ. Inflation number : 1 A AB TREK 2.75X15 RX BALLOON was prepped and advanced across the Prox CX , then inflated to 8 MIKE for 0:22 seconds. Inflation number: 2 The AB TREK 2.75X15 RX BALLOON was reinflated across the Prox CX, to 8 MIKE for 0:31 seconds. Balloon out. Inflation Number : 3 A MDT R RUTH 2.75X12 VIRGINIE -Lot Number# [id number] was prepped and advanced across the Prox CX. The stent was deployed at 12 MIKE for 0:26 seconds. Exp. 2024-09-07. Stent balloon out over wire. Results checked. Inflation number : 4 A MDT NC EUPHORA RX [id number] BALLOON was prepped and advanced across the Prox CX , then inflated to 12 MIKE for 0:13 seconds. Inflation number: 5 The MDT NC EUPHORA RX [id number] BALLOON was reinflated across the Prox CX, to 14 MIKE for 0:16 seconds. Balloon out. Results checked. Wire out. ACT drawn. Results seconds. Therapeutic limits - pre-heparin administration 90-150 seconds and monitoring heparin during a vascular procedure >250 seconds. Guide catheter out. A Right femoral angiogram was performed to determine safe placement of closure device. Angioseal placed without complications. No signs or symptoms of hematoma noted. Sterile dressing applied per usual sterile fashion. Lot # [id number]. Exp. 2022-11-06. A Angio-Seal VIP (St. Arnaldo) was successful obtaining hemostatsis at the Right Femoral artery insertion site. Vital chart was stopped. Post Procedure: Pulses reassessed and unchanged. PERRLA. Strong, equal hand nutter up bilaterally. No VTE prophylaxis required. Medication's Wasted: Lidocaine 1% = 2 mL. Medication's Wasted: Nitro = 49.8 mg. Total IV fluids: 46 mL. PCI Indication: NSTE. Post-op diagnosis: PCI of the Ostial/Prox RCA and & calcified lesion of the Ostial/Prox Cx. Complications: none. Estimated blood loss: 5mL-10mL. Responsiveness - Normal response to verbal stimuli; alert and oriented, PERRLA. Airway - Unaffected, no intervention required; spontaneous ventilation. Circulation: W/N/L, pulses unchanged. Nausea/Vomiting: No. Procedure completed. Patient transferred by bed to ICU. Access Site Site: Right Femoral artery Sheath Size: 6 Fr Hemostasis Method: Angio-Seal VIP (St. Arnaldo) Hemostasis Success: Successful Procedure Medications Start: 8:07 AM Stop: 8:07 AM Medication: Versed Amount: 1 mg Route: I.V. Start: 8:07 AM Stop: 8:07 AM Medication: Fentanyl Amount: 50 mcg Route: I.V. Start: 8:24 AM Stop: 8:24 AM Medication: Heparin Amount: 9000 units Route: I.V. Start: 8:37 AM Stop: 8:37 AM Medication: Heparin Amount: 2000 units Route: I.V. Start: 8:47 AM Stop: 8:47 AM Medication: Heparin Amount: 1000 units Route: I.V. Start: 8:55 AM Stop: 8:55 AM Medication: Versed Amount: 0.5 mg Route: I.V. Start: 8:55 AM Stop: 8:55 AM Medication: Fentanyl Amount: 25 mcg Route: I.V. Start: 9:16 AM Stop: 9:16 AM Medication: Heparin Amount: 1000 units Route: I.V. Start: 9:16 AM Stop: 9:16 AM Medication: Versed Amount: 0.5 mg Route: I.V. Start: 9:16 AM Stop: 9:16 AM Medication: Fentanyl Amount: 25 mcg Route: I.V. Start: 9:32 AM Stop: 9:32 AM Medication: Plavix Amount: 600 mg Route: P.O. Start: 9:32 AM Stop: 9:32 AM Medication: Aspirin Amount: 325 mg Route: P.O. I, the attending physician, have reviewed and verified all procedure medications. Yes, all medications given per verbal order History/Risk Factors Hypertension: Yes Dyslipidemia: Yes Peripheral Arterial Disease (PAD): No Myocardial Infarction (NV): No Obesity: No Renal Disease: Yes Tobacco Use: Former Dialysis: Current Prior Interventions PCI: No CABG: No Valve Surgery: No Report Signatures Finalized by Lino Javier MD on 03/03/2022 12:04 PM
[2022-02-21] MEDS: ALPRAZolam 0.5 mg Tablet PO (02:46)
[2022-02-21 05:23] LABS: Basophils % 0.2 %; Hematocrit 23.1 % (42.0-52.0); Hemoglobin 7.9 g/dL (11.7-16.6); Lymphocytes # 1.3 10^3/uL (0.8-4.8); Lymphocytes % 12.7 %; Mean Corpuscular HGB Conc 34.2 g/dL (30.0-36.0); Mean Corpuscular Hemoglobin 30.2 pg (28.0-34.0); Mean Corpuscular Volume 88.2 fl (80-94); Mean Platelet Volume 11.5 fL (7.4-10.4); Monocytes # 0.7 10^3/uL (0.2-0.9); Monocytes % 6.8 %; Neutrophils # 7.75 10^3/uL (1.8-7.7); Neutrophils % 77.6 %; Nucleated Red Blood Cells % 0.3 %; Platelet Count 144 10^3/cmm (130-400); Red Blood Count 2.62 10^6/uL (4.1-5.3)
[2022-02-21 05:54] LABS: Blood Urea Nitrogen 68 mg/dL (8-23); Calcium 7.8 mg/dL (8.5-10.5); Carbon Dioxide 25 mmol/L (22-29); Chloride 93 mmol/L (98-107); Glomerular Filtration Rate 5.6 mL/min (90-130); Glucose 130 mg/dL (65-115); Osmolality Calculated 300 mOsm/kg (285-295); Sodium 134 mmol/L (136-145)
[2022-02-21 05:58] LABS: Anion Gap 19.1 (5-19); Potassium 3.1 mmol/L (3.5-5.1)
[2022-02-21 05:59] LABS: Troponin T (5th) Once 1270 ng/L (0-15)
[2022-02-21] MEDS: cefTRIAXone 1,000 MG in sodium chloride 0.9% (plus) 50 ML 100 MG IV (06:22)
[2022-02-21 06:32] LABS: Glucose Point of Care 91 mg/dL (70-110)
--- NOTE | 2022-02-21 07:20 | PC.SOCIAL ---
IMM Update Late Entry: On 02/20/22 @ 09 IMM updated and reviewed w/ patient and . Copy provided and copy placed in chart. Dated and initialed.
--- NOTE | 2022-02-21 08:07 | W.PM.OPSUD ---
Surgery/Procedure H&P Update DATE OF PROCEDURE: February 21, 2022 DATE H&P PERFORMED: 02/20/22 H&P UPDATE INFORMATION: I have reviewed H&P completed within last 30 days, I have examined patient prior to procedure and No changes to prior documentation PREOP DIAGNOSIS: NSTEMI/ Abnormal stress test PRIMARY INDICATION FOR PROCEDURE: NSTEMI/ Abnormal stress test PLANNED PROCEDURE: Left heart cath with possible percutaneous coronary intervention PATIENT REASSESSED PRIOR TO SEDATION, WITH NO CHANGE NOTED: Yes PHYSICAL EXAM: alert, oriented x 3, clear to auscultation bilaterally and regular rate & rhythm AIRWAY EVAL/ANESTHESIA PLAN: ASA III, Local Anesthesia, Risks, benefits & alternatives of sedation and/or procedure discussed and Patient agrees to continue as planned ADDITIONAL INFORMATION: Moderate sedation
--- NOTE | 2022-02-21 09:43 | PC.NURSE ---
Report called to Graciela TORRES.
--- NOTE | 2022-02-21 10:10 | PC.NURSE ---
Pt arrives to ICU from cath lab radiology technician. Sinus rhythm noted. Pt alert and oriented. Right groin no hematoma or bleeding noted.
--- NOTE | 2022-02-21 10:30 | PC.NURSE ---
Family brought in [employer] and gravy for patient's meal after pathology lab technician.
[2022-02-21 11:42] LABS: Glucose Point of Care 116 mg/dL (70-110)
--- NOTE | 2022-02-21 11:50 | PM.PN ---
Subjective Subjective: s/p cardiac cath and 2 stent placement alert, no complaints Vitals/I&O/Wt Last Vital Signs Temp 97.4 F L 02/21/22 07:51 Pulse 76 02/21/22 11:30 Resp 13 02/21/22 11:30 BP 132/68 02/21/22 11:30 Pulse Ox 96 02/21/22 11:30 02/20/22 02/21/22 02/21/22 22:59 06:59 14:59 Intake Total 240 / 650 50 / 50 Balance 240 / 650 50 / 50 Data : 02/21/22 04:58 02/21/22 04:58 A&P Assessment and plan (1) ESRD (end stage renal disease): Status: Acute Plan Telemedicine visit performed with assistance of RN at bedside. 1. ESRD on peritoneal dialysis (cycler) 2. CAD s/p PTCA/stent 3. Hypokalemia 4. Pneumonia, much improved 5. Anemia, iron replete. Hb stable, received epogen, will redose Rec: replace KCl po. continue nightly PD, all 2.5% dianeal, continue to dwell with icodextrin during day. performing PD cycler set up and disconnect. Antibiotic ointment to exit site.? Has outpatient nephrology appointment February 28 Attestations Medical Necessity Statement*: per primary service Time Spent in Patient Care: 16 - 35 minutes Coding Level of Care Code Acute Stock Sheets Cleaner Inspector for Anatoliy Hickman Diagnoses ESRD (end stage renal disease) N18.6
--- NOTE | 2022-02-21 12:02 | PC.NURSE ---
Did accucheck on patient - his blood glucose is 116.
[2022-02-21] MEDS: sevelamer 800 mg Tablet 1600 MG PO ×2 (12:18→17:35)
[2022-02-21] MEDS: potassium chloride ER 20 mEq Tablet 40 MEQ PO (12:18)
[2022-02-21] MEDS: heparin 5,000 unit/mL INJ 1 mL 5000 UNIT SUBCUT ×2 (12:18→22:17)
--- NOTE | 2022-02-21 13:32 | PM.PN ---
Subjective Subjective: This morning patient was seen after his cath he was very happy with his progress, he was very thankful He stents in ostial and RCA, it showed 80 to 90% stenosis 200 cc contrast was given during this procedure Right femoral access was obtained, at the time evaluation she has already been removed Family updated Vitals/I&O/Wt Last Vital Signs Temp 97.4 F L 02/21/22 07:51 Pulse 68 02/21/22 13:00 Resp 16 02/21/22 13:00 BP 142/73 02/21/22 13:00 Pulse Ox 94 02/21/22 13:00 02/20/22 02/21/22 02/21/22 22:59 06:59 14:59 Intake Total 240 / 650 200 / 200 Balance 240 / 650 200 / 200 Physical Exam Narrative: Patient was awake and alert Was able to lay supine Currently doing well on room air Euvolemic Abdomen soft Awake and alert Cooperative and pleasant S1, S2 No audible stridor or wheezing Right groin without any hematoma No signs of ischemia of lower extremities Data : 02/21/22 04:58 02/21/22 04:58 A&P Assessment and plan (1) ESRD (end stage renal disease): Status: Acute (2) Positive cardiac stress test: Status: Acute (3) Pulmonary nodule: Status: Acute (4) End stage renal disease: Status: Acute (5) Hypoxia: Status: Acute (6) Community acquired pneumonia: Status: Acute (7) Essential tremor: Status: Acute (8) Parkinsonian tremor: Status: Chronic Plan Status post cath, status post stenting RCA and ostial which showed 80 to 90% stenosis Patient will require aspirin and Plavix for at least a year He has anemia of chronic disease response to erythropoietin and iron Community-acquired pneumonia, improved, currently on p.o. antibiotics, doing well on room air Acute hypoxia related to fluid overload, pneumonia Resolved currently doing well on room air, did not qualify for oxygen with home O2 evaluation Patient has a radiation therapy technician at [facility] he would like to follow-up with his own radiation therapy technician He has been given loading dose of aspirin and Plavix today Plan to discharge him tomorrow versus later today Peritoneal dialysis, I have notified wet roaster regarding contrast during the procedure, will follow up with the recommendations, will give him small dose of p.o. potassium Attestations Medical Necessity Statement*: Status post cath Time Spent in Patient Care: 30 Coding Level of Care Code Acute Senior Linux Unix Engineer for Chg Fwd Diagnoses ESRD (end stage renal disease) N18.6 Positive cardiac stress test R94.39 Pulmonary nodule R91.1 End stage renal disease N18.6 Hypoxia R09.02 Community acquired pneumonia J18.9 Essential tremor G25.0 Parkinsonian tremor G20
[2022-02-21] MEDS: epoetin alfa 1000 Unit/0.05 mL (ESRD) 20000 UNIT SUBCUT (13:52)
--- NOTE | 2022-02-21 14:05 | PC.NURSE ---
Periclose and Stent cards provided to pateint/ at this time
[2022-02-21] MEDS: acetaminophen 325 mg Tablet 650 MG PO ×2 (16:24→22:56)
[2022-02-21] MEDS: fentaNYL 50 mcg/mL INJ 2mL IVP (16:56)
[2022-02-21 17:09] LABS: Glucose Point of Care 122 mg/dL (70-110)
[2022-02-21] MEDS: insulin lispro 100 unit/1 mL 10 UNIT SUBCUT (17:35)
[2022-02-21] MEDS: amoxicillin-clav 875-125 mg Tablet 1 TAB PO (17:35)
--- NOTE | 2022-02-21 19:05 | PC.NURSE ---
Bedside report completed with Stacey Valentin RN.
--- NOTE | 2022-02-21 19:35 | PC.NURSE ---
Shift Note Pt went to cleaner laboratory equipment today received 2 stents. Perclosure device used. Pt off bedrest at 1330. Site remains soft with no hematomas or bleeding. Sinus rhythm with PACs on monitor. at bedside, performing the PD . Pt has been out of bed walking around room , he was unsteady at first. Frequent safety and comfort rounds continue. Orders and/or nursing care completed as indicated. Patient monitored for response to intervention and treatment(s). Education provided includes important of taking Plavix, post stent/cath care, weight restrictions. Patient and/or auto claim representative verbalized understanding of plan of care and medications. Will continue to monitor.
[2022-02-21] MEDS: ipratropium-albuterol 3 mL Neb INHALATION (20:24)
[2022-02-21] MEDS: budesonide 0.5 mg/2 mL Neb INHALATION (20:24)
[2022-02-21] MEDS: aspirin 81 mg Chew Tablet PO (20:30)
[2022-02-21] MEDS: atorvastatin 40 mg Tablet PO (20:31)
[2022-02-21] MEDS: clopidogrel 75 mg Tablet PO (20:31)
[2022-02-21 20:38] LABS: Glucose Point of Care 120 mg/dL (70-110)
--- NOTE | 2022-02-21 21:40 | PC.NURSE ---
Lantus Upon checking patient's blood sugar and discussing insulin administration, patient's states that she administered home dose of 45 units of Basaglar long acting. Dr. Salinas notified and scheduled dose of 20 units Lantus not administered.
--- NOTE | 2022-02-21 22:08 | P.PN_ITS ---
Subjective Subjective: Patient is doing well. Underwent coronary angiogram today that showed severe ostial RCA and LCx stenosis. He underwent successful revascularization with DESX 2. Vitals/I&O/Wt Last Vital Signs Temp 97.9 F 02/21/22 20:00 Pulse 107 H 02/21/22 21:00 Resp 15 02/21/22 21:00 BP 126/83 02/21/22 21:00 Pulse Ox 91 02/21/22 21:00 02/21/22 02/21/22 02/21/22 06:59 14:59 22:59 Intake Total 200 / 200 300 / 500 Balance 200 / 200 300 / 500 Physical Exam Narrative: GENERAL: Patient is alert, awake and oriented x3. [] NECK: No jugular vein distension. [] HEENT: No cyanosis. No icterus. No pallor. [] HEART: Regular S1 and S2. No murmur, rub or gallop. [] LUNGS: Clear to auscultate bilaterally. [] ABDOMEN: Soft, nontender and nondistended. Positive bowel sounds. No guarding, rebound or tenderness. [] CENTRAL NERVOUS SYSTEM: Grossly nonfocal. [] EXTREMITIES: Lower extremities with 1+ edema bilaterally. Pulses palpable in the lower extremities, both dorsalis pedis and posterior tibial. [] Data : 02/21/22 04:58 02/21/22 04:58 A&P Assessment and plan (1) ESRD (end stage renal disease): Status: Acute (2) Positive cardiac stress test: Status: Acute (3) Hyperlipidemia: Status: Chronic Qualifiers: Hyperlipidemia type: unspecified Qualified Code(s): E78.5 - Hyperlipidemia, unspecified (4) Hypertension: Status: Chronic Qualifiers: Hypertension type: essential hypertension Qualified Code(s): I10 - Ess ential (primary) hypertension (5) Troponin level elevated: Status: Acute Plan Patient underwent successful revascularization of ostial left circumflex artery with VIRGINIE x1. Also had PCI of ostial RCA with VIRGINIE x1. Continue aspirin and plavix ECHO shows borderline low to normal LV systolic function Thank you for involving us with care of this patient. We will continue to follow. Please call with questions. Attestations Medical Necessity Statement*: Care expected to cross 2 midnights. Coding Level of Care Code Acute Outside Plant Cable Engineer for Anatoliy Hickman Diagnoses ESRD (end stage renal disease) N18.6 Positive cardiac stress test R94.39 Hyperlipidemia E78.5 Hyperlipidemia type: unspecified Hypertension I10 Hypertension type: essential hypertension Troponin level elevated R77.8
[2022-02-21] MEDS: metoprolol succinate ER (24 HR) 25 mg Tablet PO (22:51)
[2022-02-21] MEDS: temazepam 15 mg Capsule PO (22:56)
[2022-02-22] VITALS (23 sets, daily range): BP systolic 80–156; BP diastolic 52–116; PULSE 68–93; RESP 13–23; TEMP 36.5; O2SAT 90–99; BMI 28.2
--- NOTE | 2022-02-22 00:05 | PC.NURSE ---
Morphine Patient complaining of severe pain in right 4th finger due to present ulcer. Patient stated tylenol administered previously did not help. Dr. Salinas notified and order received for 1 mg IVP Morphine Q8HR for pain. Medication administered per OCT.
[2022-02-22] MEDS: morphine 4 mg/mL SDV 1 mL 1 MG IVP ×2 (00:08→07:46)
[2022-02-22] MEDS: ondansetron 2 mg/ML SDV 2 mL 4 MG IVP (03:32)
[2022-02-22 06:09] LABS: Glucose Point of Care 74 mg/dL (70-110)
[2022-02-22 06:12] LABS: Basophils % 0.2 %; Eosinophils # 0.1 10^3/uL (0.0-0.8); Eosinophils % 1.2 %; Hematocrit 25.7 % (42.0-52.0); Hemoglobin 8.6 g/dL (11.7-16.6); Lymphocytes # 1.5 10^3/uL (0.8-4.8); Lymphocytes % 18.3 %; Mean Corpuscular HGB Conc 33.5 g/dL (30.0-36.0); Mean Corpuscular Hemoglobin 29.8 pg (28.0-34.0); Mean Corpuscular Volume 88.9 fl (80-94); Mean Platelet Volume 11.3 fL (7.4-10.4); Monocytes # 0.8 10^3/uL (0.2-0.9); Monocytes % 9.8 %; Neutrophils # 5.23 10^3/uL (1.8-7.7); Nucleated Red Blood Cells # 0.1 /100WBC; Nucleated Red Blood Cells % 1.7 %; Platelet Count 169 10^3/cmm (130-400); Red Blood Count 2.89 10^6/uL (4.1-5.3); Red Cell Distribution Width 17.4 % (12.1-15.1); White Blood Count 8.2 10^3/uL (4.0-10.0)
[2022-02-22 06:19] LABS: Neutrophils % 70.5 %
[2022-02-22 06:36] LABS: Anion Gap 18.1 (5-19); Blood Urea Nitrogen 61 mg/dL (8-23); Calcium 7.6 mg/dL (8.5-10.5); Carbon Dioxide 26 mmol/L (22-29); Chloride 94 mmol/L (98-107); Glomerular Filtration Rate 5.6 mL/min (90-130); Glucose 82 mg/dL (65-115); Osmolality Calculated 296 mOsm/kg (285-295); Potassium 3.1 mmol/L (3.5-5.1); Sodium 135 mmol/L (136-145)
[2022-02-22 07:09] LABS: Glucose Point of Care 66 mg/dL (70-110)
[2022-02-22] MEDS: sevelamer 800 mg Tablet 1600 MG PO (07:39)
[2022-02-22] MEDS: acetaminophen 325 mg Tablet 650 MG PO (07:40)
[2022-02-22] MEDS: levothyroxine 175 mcg Tablet PO (08:08)
[2022-02-22] MEDS: pantoprazole DR 40 mg Tablet PO (08:08)
[2022-02-22] MEDS: amoxicillin-clav 875-125 mg Tablet 1 TAB PO (08:08)
[2022-02-22] MEDS: budesonide 0.5 mg/2 mL Neb INHALATION (08:14)
[2022-02-22] MEDS: ipratropium-albuterol 3 mL Neb INHALATION (08:14)
--- NOTE | 2022-02-22 09:05 | P.PN_ITS ---
Subjective Subjective: Patient is doing well. no chest pain Vitals/I&O/Wt Last Vital Signs Temp 97.7 F 02/22/22 04:00 Pulse 70 02/22/22 08:19 Resp 18 02/22/22 08:15 BP 132/53 02/22/22 07:00 Pulse Ox 98 02/22/22 08:15 02/21/22 02/22/22 02/22/22 22:59 06:59 14:59 Intake Total 780 / 980 Balance 780 / 980 Weight last 48 hrs Weight 202 lb 6.4 oz Physical Exam Narrative: GENERAL: Patient is alert, awake and oriented x3. [] NECK: No jugular vein distension. [] HEENT: No cyanosis. No icterus. No pallor. [] HEART: Regular S1 and S2. No murmur, rub or gallop. [] LUNGS: Clear to auscultate bilaterally. [] ABDOMEN: Soft, nontender and nondistended. Positive bowel sounds. No guarding, rebound or tenderness. [] CENTRAL NERVOUS SYSTEM: Grossly nonfocal. [] EXTREMITIES: Lower extremities with 1+ edema bilaterally. Pulses palpable in the lower extremities, both dorsalis pedis and posterior tibial. [] Data : 02/22/22 05:35 02/22/22 05:35 A&P Assessment and plan (1) ESRD (end stage renal disease): (2) Positive cardiac stress test: Status: Resolved (3) Hyperlipidemia: Qualifiers: Hyperlipidemia type: unspecified Qualified Code(s): E78.5 - Hyperlipidemia, unspecified (4) Hypertension: Qualifiers: Hypertension type: essential hypertension Qualified Code(s): I10 - Essential (primary) hypertension (5) Troponin level elevated: Status: Resolved Plan Patient underwent successful revascularization of ostial left circumflex artery with VIRGINIE x1. Also had PCI of ostial RCA with VIRGINIE x1. Continue aspirin and plavix ECHO shows borderline low to normal LV systolic function Thank you for involving us with care of this patient. Patient is stable to be discharged from cardiology follow-up. Please call with questions Attestations Medical Necessity Statement*: Care expected to cross 2 midnights. Coding Level of Care Code Acute Referral Manager for [facility] Fwd Diagnoses ESRD (end stage renal disease) N18.6 Positive cardiac stress test R94.39 Hyperlipidemia E78.5 Hyperlipidemia type: unspecified Hypertension I10 Hypertension type: essential hypertension Troponin level elevated R77.8
--- NOTE | 2022-02-22 09:14 | PC.NURSE ---
Patient c/o of severe pain in right 4th finger ulcer, prn meds already given. this nurse notified Dr. Lsat who is at bedside
--- NOTE | 2022-02-22 09:38 | PC.NURSE ---
Dr. Last gave v.o. for Oxycodone 5 mg po x1 now
[2022-02-22] MEDS: oxyCODONE 5 mg IR Tab/Cap PO (09:56)
--- NOTE | 2022-02-22 10:37 | PC.SOCIAL ---
IMM Updated Updated pt on IMM. No questions voiced. Provided pt a copy. Initialed, dated, & timed copy in chart.
--- NOTE | 2022-02-22 10:44 | PM.DCS ---
Discharge Providers Date of Admission: 02/17/22 20:39 Date of Discharge: February 22, 2022 Attending Provider at Admission: Sherri Salnias MD Attending Provider at Discharge: Rashi Last MD Primary Care Provider: Irene Jones Diagnoses at Discharge Discharge Diagnosis (1) ESRD (end stage renal disease): Status: Acute (2) Positive cardiac stress test: Status: Acute (3) Hyperlipidemia: Status: Chronic Qualifiers: Hyperlipidemia type: unspecified Qualified Code(s): E78.5 - Hyperlipidemia, unspecified (4) Hypertension: Status: Chronic Qualifiers: Hypertension type: essential hypertension Qualified Code(s): I10 - Essential (primary) hypertension (5) Troponin level elevated: Status: Acute Reason for Visit Reason for Visit: SOB Hospital Course Hospital Course 72-year-old male who is peritoneal dialysis dependent admitted to the hospital for acute hypoxia related to community-acquired pneumonia, CT scan consistent with right lobe pneumonia, with use of antibiotics and dialysis on daily basis we were able to wean him off to room air, he did not qualify for oxygen at the time of discharge. His cultures remain negative, he remained afebrile. Initially he required BiPAP however on the day of discharge she did not qualify for oxygen. Of note, he was complaining of chest pain for which stress test was requested which came back positive, cardiology was consulted for an angiogram, Dr. Javier did coronary angioplasty status post 2 stents in ostial and RCA, which showed 80 to 90% stenosis, he was dialyzed on Wednesday after his angioplasty. Patient's symptoms improved significantly at the time of discharge. For his pulmonary nodule he can follow-up with one of our pulmonary medicine doctors, he carries history of smoking in the past. Dual antiplatelet therapy for at least 1 year For his diabetes his is very involved with management of his insulin and hyperglycemia. Patient's copyholder is with [facility]. Discharge Data Studies Completed and Pending Completed Studies During Hospitalization Category Date Time Status CT chest wo con [id number] Routine Cat Scan 02/18/22 07:45 Completed Sestamibi Stress Test Request Routine Exams 02/20/22 06:49 Draft XR chest 1V portable [id number] Urgent Exams 02/17/22 18:49 Completed NM to perf SPECT r/s* [id number] Routine Nuc Med 02/20/22 08:03 Completed CV. echo complete* [id number] Routine Ultrasound 02/18/22 10:45 Completed Pending at discharge Category Date Time Status [employer]ENT request for service Routine Exams 02/21/22 07:34 Ordered Sestamibi Stress Test Request Routine Exams 02/19/22 08:03 Stop Req Blood Culture Stat Lab 02/17/22 19:40 Results Radiology Impressions Chest X-Ray 02/17/22 18:49 IMPRESSION: 1. Emphysematous changes. 2. Bilateral mid to lower lung field airspace infiltrates. 3. Left mid lung 7.3 mm nodule again seen, previously described is stable dating back March 2018. Chest CT 02/18/22 07:45 IMPRESSION: 1. Small bilateral pleural effusions with compressive atelectasis in the lung bases. 2. Patchy infiltrate in RIGHT upper lobe along the fissure.Correlation for pneumonia. 3. Additional hazy bilateral groundglass infiltrates in the perihilar regions. Correlation for pneumonia including Covid 19 pneumonia. 4. Ovoid nodule LEFT upper lobe measuring 8 mm. Recommend 6 month follow-up chest CT. 5. No mediastinal or hilar lymphadenopathy. 6. Aortic calcification and coronary calcification. 7. Small amount of perihepatic and perisplenic ascites. Laboratory Results WBC 8.2 10^3/uL (4.0-10.0) 02/22/22 05:35 RBC 2.89 10^6/uL (4.1-5.3) L 02/22/22 05:35 Hgb 8.6 g/dL (11.7-16.6) L 02/22/22 05:35 Hct 25.7 % (42.0-52.0) L 02/22/22 05:35 MCV 88.9 fl (80-94) 02/22/22 05:35 MCH 29.8 pg (28.0-34.0) 02/22/22 05:35 MCHC 33.5 g/dL (30.0-36.0) 02/22/22 05:35 RDW 17.4 % (12.1-15.1) H 02/22/22 05:35 Plt Count 169 10^3/cmm (130-400) 02/22/22 05:35 MPV 11.3 fL (7.4-10.4) H 02/22/22 05:35 Neut % (Auto) 70.5 % 02/22/22 05:35 Lymph % (Auto) 18.3 % 02/22/22 05:35 [place] % (Auto) 9.8 % 02/22/22 05:35 Eos % (Auto) 1.2 % 02/22/22 05:35 Baso % (Auto) 0.2 % 02/22/22 05:35 Neut # (Auto) 5.23 10^3/uL (1.8-7.7) 02/22/22 05:35 Lymph # (Auto) 1.5 10^3/uL (0.8-4.8) 02/22/22 05:35 [place] # (Auto) 0.8 10^3/uL (0.2-0.9) 02/22/22 05:35 Eos # (Auto) 0.1 10^3/uL (0.0-0.8) 02/22/22 05:35 Baso # (Auto) 0.0 10^3/uL (0.0-0.1) 02/22/22 05:35 Nucleated RBC % (auto) 1.7 % 02/22/22 05:35 Nucleated RBCs # 0.1 /100WBC 02/22/22 05:35 PT 15.60 SECONDS (12.1-14.9) H 02/17/22 19:49 INR 1.20 (0.8-1.2) 02/17/22 19:49 D-Dimer 0.91 ug/mIFEU (0-0.59) H 02/17/22 19:49 Specimen Type Arterial 02/17/22 19:30 Sample Site Radial, left 02/17/22 19:30 ABG pH 7.40 (7.35-7.45) 02/17/22 19:30 ABG pCO2 30.1 mmHg (35-45) L 02/17/22 19:30 ABG pO2 69.3 mmHg (80.0-100.0) L 02/17/22 19:30 ABG HCO3 18.8 mmol/L (22-26) L 02/17/22 19:30 ABG Base Excess -5.2 mmol/L (-2.0-2.0) L 02/17/22 19:30 Jose Test Pos 02/17/22 19:30 Hematocrit 27.0 % (42-52) L 02/17/22 19:30 Hgb O2 Saturation 92.0 % (95-100) L 02/17/22 19:30 Carboxyhemoglobin 1.0 %THgb (0.4-20.1) 02/17/22 19:30 Methemoglobin 1.0 % (0.4-1.5) 02/17/22 19:30 Total Hemoglobin 8.8 g/dL (14-18) L 02/17/22 19:30 O2 Delivery Device Nc 02/17/22 19:30 O2 Liters/Min 0.5 % 02/17/22 19:30 Lead Database Administrator ID Walnelia 02/17/22 19:30 Sodium 135 mmol/L (136-145) L 02/22/22 05:35 Potassium 3.1 mmol/L (3.5-5.1) L 02/22/22 05:35 Chloride 94 mmol/L (98-107) L 02/22/22 05:35 Carbon Dioxide 26 mmol/L (22-29) 02/22/22 05:35 Anion Gap 18.1 (5-19) 02/22/22 05:35 BUN 61 mg/dL (8-23) H 02/22/22 05:35 Creatinine 9.3 mg/dL (0.7-1.2) H* 02/22/22 05:35 GFR Calculation 5.6 mL/min (90-130) L 02/22/22 05:35 Glucose 82 mg/dL (65-115) 02/22/22 05:35 POC Glucose 66 mg/dL (70-110) L 02/22/22 07:05 Estimat Average Glucose 140 02/19/22 03:53 Hemoglobin A1c 6.5 % (4.0-6.0) H 02/19/22 03:53 Calculated Osmolality 296 mOsm/kg (285-295) H 02/22/22 05:35 Calcium 7.6 mg/dL (8.5-10.5) L 02/22/22 05:35 Magnesium 1.8 mg/dL (1.7-2.3) 02/20/22 04:32 Iron 85 ug/dL (59-158) 02/19/22 04:49 TIBC 165 mcg/dl 02/19/22 04:49 % Saturation 51.5 % (20-50) H 02/19/22 04:49 Unsat Iron Binding 80 ug/dL (112-347) L 02/19/22 04:49 Ferritin 1118 ng/mL (30-400) H 02/19/22 04:49 Total Bilirubin 0.2 mg/dL (0.15-1.2) 02/18/22 04:53 AST 118 U/L (0-40) H 02/18/22 04:53 ALT 38 U/L (0-41) 02/18/22 04:53 Alkaline Phosphatase 101 IU/L (40-130) 02/18/22 04:53 Troponin T Gen 5 ng/L 1270 ng/L (0-15) H* 02/21/22 04:58 C-Reactive Protein 16.2 mg/L (0.0-4.9) H 02/18/22 04:53 NT-Pro-B Natriuret Pep 12239 pg/mL (0-125) H 02/17/22 19:49 Total Protein 5.5 g/dL (6.6-8.7) L 02/18/22 04:53 Albumin 3.1 g/dL (3.5-5.2) L 02/18/22 04:53 Globulin 2.4 g/dL (1.3-4.6) 02/18/22 04:53 Procalcitonin 0.87 ng/mL (0-0.5) H 02/19/22 04:49 SARS-CoV-2 RNA (RT-PCR) Not detected (NOT DETECTED) 02/19/22 06:00 SARS-CoV-2 Ag (Rapid) Negative (Negative) 02/17/22 20:18 Vitals Last Vital Signs Temp 97.7 F 02/22/22 04:00 Pulse 76 02/22/22 09:00 Resp 18 02/22/22 09:56 BP 122/52 02/22/22 08:00 Pulse Ox 96 02/22/22 09:56 Discharge Plan Discharge Patient Disposition: Home Condition: Stable Prescriptions: New clopidogrel 75 mg Tablet 75 mg PO DAILY@2100 Qty: 120 4RF amoxicillin-pot clavulanate 875-125 mg Tablet 1 tab PO BID Qty: 10 0RF oxycodone 5 mg tablet 5 mg PO DAILY PRN (Reason: pain) Qty: 20 0RF Continued omeprazole 20 mg capsule,delayed release(DR/EC) 20 mg PO BID 0RF potassium chloride 20 mEq tablet extended release 20 meq PO QAM 0RF insulin aspart U-100 [Novolog Flexpen U-100 Insulin] 100 unit/mL (3 mL) insulin pen See Rx Instructions .ROUTE .COMPLEX 0RF Rx Instructions: 12 units tid with meals plus sliding scale magnesium oxide [MagOx] 400 mg (241.3 mg magnesium) Tablet 400 mg PO QAM 0RF insulin glargine [Basaglar KwikPen U-100 Insulin] 100 unit/mL (3 mL) Insulin Pen See Rx Instructions .ROUTE .COMPLEX 0RF Rx Instructions: 22-40 units according to bag used for dialysis Creon 12,000-38,000 -60,000 unit Capsule,Delayed Release(Dr/Ec) See Rx Instructions .ROUTE .COMPLEX 0RF Rx Instructions: 5 cap po with meals and 2-3 caps with snacks. prednisone 50 mg Tablet 50 mg PO DAILY 0RF Rx Instructions: rx filled 02/17/22 5d/s levothyroxine [Euthyrox] 150 mcg Tablet 150 mcg PO QAM 0RF Rx Instructions: Take on an empty stomach sertraline 50 mg Tablet 75 mg PO QPM 0RF pregabalin [Lyrica] 150 mg Capsule 150 mg PO BEDTIME 0RF metoprolol succinate 50 mg Capsule,Sprinkle,Er 24hr 25 mg PO BEDTIME PRN (Reason: if sbp is over 145) 0RF calcium acetate(phosphat bind) 667 mg capsule See Rx Instructions .ROUTE .COMPLEX 0RF Rx Instructions: Take 3 caps PO with meals and 1 cap with snack. (Do not exceed 12 caps per day). cholecalciferol (vitamin D3) 1,250 mcg (50,000 unit) capsule 50,000 unit PO Q7D 0RF Rx Instructions: on wed atorvastatin 40 mg tablet 40 mg PO QPM Qty: 90 3RF aspirin 81 mg Tablet,Delayed Release (Dr/Ec) 81 mg PO BEDTIME Qty: 120 3RF albuterol sulfate 90 mcg/actuation HFA aerosol inhaler 2 inh INHALATION Q6H PRN (Reason: shortness of breath or wheezing) Qty: 8 0RF Discontinued ciprofloxacin HCl 500 mg tablet 500 mg PO BID 0RF Rx Instructions: rx filled 02/11/22 7d/s doxycycline hyclate 100 mg tablet 100 mg PO BID 0RF Rx Instructions: rx filled 02/17/22 7d/s Discharge Orders: Discharge Order (Routine); Ordered 02/22/22 Ordered By: Rashi Last Referrals: Lino Javier M.D [Physician] - 1 month Chely Sarmiento FNP [Nurse Practitioner] - 1 week Kiran Reardon MD [Primary Care Provider] - 1 week Bam Galloway MD [Physician] - 1 month Discharge Diet: Cardiac Discharge Activity: Increase activity as tolerated Patient Instructions: Opioid Safety Discharge Attestations Time Spent in Discharge Care*: less than 30 min Quality Metrics Clinical Quality Measures [ No reported AMI, CVA or VTE this stay] Coding Level of Care Code Acute Chg FW DC note Diagnoses ESRD (end stage renal disease) N18.6 Positive cardiac stress test R94.39 Hyperlipidemia E78.5 Hyperlipidemia type: unspecified Hypertension I10 Hypertension type: essential hypertension Troponin level elevated R77.8
--- NOTE | 2022-02-22 11:25 | PC.NURSE ---
All d/c instructions educated to patient and , no questions at this time. patient signed D/C paperwork. [facility] at this time transported by and son
== END 2022-02-22 11:30 | disposition home or self-care (01) | DRG 981 ==
LOC: ER 21:31 → MEDSURG 22:31 → ICU 02-21 08:55
PROVIDERS: Internal Medicine; Admitting Provider Student in an Organized Health Care Education/Training Program; Emergency Provider Emergency Medicine; PCP Family Medicine; Visit Provider Internal Medicine
PROC: 027135Z Dilation of Coronary Artery, Two Arteries with Two Drug-eluting Intraluminal Devices, Percutaneous Approach (ICD-10-PCS; principal; 2022-02-21 07:45)
PROC: 027135Z Dilation of Coronary Artery, Two Arteries with Two Drug-eluting Intraluminal Devices, Percutaneous Approach (ICD-10-PCS; 2022-02-21 07:45)
DX: J18.9 Pneumonia, unspecified organism (principal); I21.4 Non-ST elevation (NSTEMI) myocardial infarction; N18.6 End stage renal disease; J81.0 Acute pulmonary edema; E87.1 Hypo-osmolality and hyponatremia; K86.1 Other chronic pancreatitis; I12.0 Hypertensive chronic kidney disease with stage 5 chronic kidney disease or end stage renal disease; E11.22 Type 2 diabetes mellitus with diabetic chronic kidney disease; E11.65 Type 2 diabetes mellitus with hyperglycemia; Z99.2 Dependence on renal dialysis; E11.43 Type 2 diabetes mellitus with diabetic autonomic (poly)neuropathy; K31.84 Gastroparesis; F32.A Depression, unspecified; M10.9 Gout, unspecified; E78.5 Hyperlipidemia, unspecified; E03.9 Hypothyroidism, unspecified; Z87.891 Personal history of nicotine dependence; G20 Parkinson's disease; Z96.82 Presence of neurostimulator; D63.1 Anemia in chronic kidney disease; R91.1 Solitary pulmonary nodule; Z79.82 Long term (current) use of aspirin; Z79.4 Long term (current) use of insulin; I25.10 Atherosclerotic heart disease of native coronary artery without angina pectoris; Z87.820 Personal history of traumatic brain injury
CPT/HCPCS: 36415; 36416; 36600; 71045; 71250; 78452; 80048; 80053; 82728; 82805; 82962; 83036; 83540; 83550; 83735; 83880; 84145; 84484; 85025; 85347; 85378; 85610; 86140; 87040; 87426; 87635; 93005; 93017; 93306; 93454; 94640; 94660; 94760; 96360; 96361; 96372; 96374; 99152; 99153; 99285; 99291; A9500; C1725; C1760; C1769; C1874; C1887; C1894; C9600; C9601; J0456; J0696; J1644; J1815; J1940; J2060; J2250; J2270; J2405; J2785; J2920; J2930; J3010; J3490; J7030; J7050; J7614; J7626; Q3014; Q4081; Q9967

== ENCOUNTER 2022-03-09 15:03 | Inpatient (IN) | payer MEDICARE, OTHER, SELFPAY ==
[2022-03-09] VITALS (21 sets, daily range): BP systolic 101–139; BP diastolic 49–81; PULSE 64–84; RESP 11–28; TEMP 36.7; O2SAT 91–100; BMI 27.8; BMI 27.6
--- NOTE | 2022-03-09 15:11 | XRR_ITS ---
PROCEDURE INFORMATION: Exam: XR Chest Exam date and time: 03/09/2022 4:08 PM Age: 72 years old Clinical indication: Pain; Angina pectoris; Additional info: Chest pain TECHNIQUE: Imaging protocol: Radiologic exam of the chest. Views: 1 view. COMPARISON: CT chest con [id number] 02/18/2022 10:38 AM FINDINGS: Tubes, catheters and devices: Stimulator device noted in the right chest wall with lead extending into the right cervical soft tissues. Lungs: No consolidation. Pleural spaces: Moderate volume right and small volume left pleural effusions. No pneumothorax. Heart/Mediastinum: No cardiomegaly. Bones/joints: Visualized osseous structures are intact. XR/XR chest 1V portable [id number] IMPRESSION: Moderate volume right and small volume left pleural effusions.
--- NOTE | 2022-03-09 15:17 | ECG_ITS ---
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 Measurements Intervals [place] Rate: 71 P: 38 TN: 211 QRS: -29 QRSD: 98 T: 66 QT: 378 QTc: 413 Interpretive Statements SINUS RHYTHM WITH FIRST DEGREE AV BLOCK WITH OCCASIONAL VENTRICULAR PREMATURE COMPLEXES BORDERLINE LEFT AXIS DEVIATION [QRS AXIS < -20] LEFT VENTRICULAR HYPERTROPHY AND ST-T CHANGE [VOLTAGE CRITERIA PLUS ST/T ABNORMALITY] INTERPRETATION BASED ON A DEFAULT AGE OF 40 YEARS Compared to ECG 02/17/2022 18:58:27 First degree AV block now present Left ventricular hypertrophy now present ST (T wave) deviation now present Intraventricular conduction delay no longer present T-wave abnormality no longer present Electronically Signed On 03-10-2022 7:09:27 CDT by Oleg Macedo M.D. [id number]
[2022-03-09] MEDS: morphine 4 mg/mL SDV 1 mL IVP ×2 (15:45→16:45)
--- NOTE | 2022-03-09 16:09 | W.ED.GENADLT ---
HPI - General Adult General: Chief complaint: Chest Pain Stated complaint: Chest pain Time Seen by Provider: 03/09/22 15:57 History of Present Illness: Patient is a 72-year-old male with CAD with recent stent x3, right-sided pleural effusion on PRN oxygen, diabetes presenting to the emergency room with worsening dyspnea for the last few days. Patient tells me that normally does not use oxygen but over the last few days he has had significant right-sided chest pain and dyspnea. Recently, patient was admitted to [facility] and has had 3 stents that was placed. Patient was told that he could not get right-sided effusion drained because of his recent anticoagulation. Patient states that because the symptoms has worsened in the last few days decided to come to the emergency room. Of note, patient has been having cough for the last 2 weeks. Patient denies any fever/chills, abdominal complaints diarrhea melena medic easier. Patient is chronically peritoneal dialysis dependent. Onset: 3-4 days ago Duration:3-4 days Location:home Severity:moderate Associated symptoms: Reports chest pain (+R sided chest pain) and dyspnea (+R sided dyspnea); Deny nausea, rash, palpitations or vomiting Review of Systems Const: Denies: fever(s) or chills Eyes: Denies: change in vision ENMT: Denies: mouth pain Card: Reports: chest pain (+R sided chest pain); Denies: palpitations Resp: Reports: dyspnea (+R sided dyspnea); Denies: non-productive cough GI: Denies: abdominal pain, nausea, vomiting or diarrhea : Denies: dysuria Musc: Denies: extremity pain Skin/Breast: Denies: rash or new lesions Neuro: Denies: weakness in extremities Psych: Reports: other (Normal mood) Carlos/Lymph: Denies: easy bruising PFSH ED PFSH: Medical History Depression Diabetes ESRD (end stage renal disease) Essential tremor Gastroparesis Gout Hyperlipidemia Hypertension Hypothyroidism (acquired) Pancreatitis takes chronic pancrease Parkinsonian tremor Peritoneal dialysis catheter in place Stage 5 chronic kidney disease Tremor Vitiligo Weakness Surgical History History of appendectomy History of carpal tunnel release left wrist 1975 History of cholecystectomy Family History Other CAD (coronary artery disease) Cancer Diabetes Hypertension Denies family history of Stroke Social History Smoking and tobacco status: former smoker Quit status (tobacco): has quit using tobacco Year quit tobacco: 1992 Alcohol intake: never Household members: spouse Marital status: Physical Exam Const: COMMON NORMALS: alert HENMT: COMMON NORMALS: atraumatic HEAD & SCALP: atraumatic MOUTH: moist mucous membranes not abnormal Eye: COMMON NORMALS: EOMs intact bilaterally and conjunctivae normal CONJUNCTIVA: Yes conjunctivae normal Neck/C-Spine: COMMON NORMALS: full ROM and supple Resp: COMMON NORMALS: normal respiratory effort OTHER: + Right-sided decreased breath sounds Cardio: COMMON NORMALS: regular rate RATE: regular rate GI: COMMON NORMALS: Soft to palpation and non-tender PALPATION: Yes Soft to palpation OTHER: +mild abdominal distension without TTP. NO guarding rebound, guarding, rigidity. No CVA tenderness to percussion. Neg Pagan/Neg McBurney's point tenderness, no suprabupic tenderness to palpation. Extremity: COMMON NORMALS: full ROM Neuro: SENSORIUM/ORIENTATION: Yes alert MOTOR EXAM: No Abnormal motor strength present and Other motor observations present (no focal motor deficits) Psych: COMMON NORMALS: speech normal SPEECH: Yes normal speech MOOD & AFFECT: Yes euthymic mood Course Vital Signs: Vital signs: Vital Signs Temperature 98.1 F 03/09/22 15:23 Pulse Rate 79 03/09/22 18:25 Respiratory Rate 16 03/09/22 18:22 Blood Pressure 139/74 03/09/22 18:22 Pulse Oximetry 99 03/09/22 18:25 Oxygen Delivery Me thod 03/09/22 18:22 Oxygen Flow Rate 3 03/09/22 16:54 Fraction of Inspir ed Oxygen 28 03/09/22 18:25 [facility] - General Adult Medical Decision Making Patient is a 72-year-old male with history of CAD with stent x3, R sided pleural effusion presenting to emergency room with worsening right-sided chest pain and dyspnea. Patient at baseline does not require oxygen. On physical exam, patient is noted to be satting at 91% on room air requiring 3 L oxygen. Patient is noted to have coarse decreased breath sound on the right side. XR showed large pleural effusion. Has had a white count of 14.5. CTA showed possible right-sided infiltrate versus atelectasis. Patient received ceftriaxone azithromycin. Patient has large pleural effusion on right side. Dr. Fermin is following. Shortly while patient was observed in the emergency room, patient was noted to have significant respiratory distress and expiratory wheezes. Patient is full code currently. Patient received albuterol and is currently on BiPAP with significant improvement in respiratory distress. Patient showed respiratory acidosis with CO2 retention. He will be admitted to the ICU for further observation. Dr. Arias from Nephrology will follow patient. Disposition: ICU Lab Data : 03/09/22 16:20 03/09/22 19:06 Radiology Impressions Chest X-Ray 03/09/22 15:11 IMPRESSION: Moderate volume right and small volume left pleural effusions. Chest/Abdomen/Pelvis CTA 03/09/22 17:39 IMPRESSION: 1. Negative for pulmonary embolus. 2. Cardiomegaly. 3. Coronary artery atherosclerotic calcifications. 4. Right chest implanted medical doctor nuclear medicine. 5. Large right pleural effusion. 6. Right greater than left dependent atelectasis versus infiltrate. 7. Large amount of abdominal ascites. 8. Several right kidney cysts. 9. Pancreatic atrophy with multiple punctate benign-appearing parenchymal calcifications. 10. Cholecystectomy suspected. 11. Common bile duct is prominent measuring 15.8 mm without obstructing lesion, likely related to prior cholecystectomy, MRCP could further evaluate this as clinically indicated. 12. Percutaneous catheter seen with tip coiled in the pelvis. 13. Focal saccular 2.8 cm infrarenal abdominal aortic aneurysm without rupture. COMMENTS: Consistent with the [employer]'s Incidental Findings Committee white paper (J Am Yaw Radiol 2018): Any incidental renal lesion less than 1 cm or classified as too small to characterize, or any incidental cystic renal lesion characterized as simple-appearing, is likely benign. No follow-up imaging is recommended for these lesions per consensus recommendations based on imaging criteria. Laboratory Results WBC 14.5 10^3/uL (4.0-10.0) H 03/09/22 16:20 RBC 3.51 10^6/uL (4.1-5.3) L 03/09/22 16:20 Hgb 10.5 g/dL (11.7-16.6) L 03/09/22 16:20 Hct 33.7 % (42.0-52.0) L 03/09/22 16:20 MCV 96.0 fl (80-94) H 03/09/22 16:20 MCH 29.9 pg (28.0-34.0) 03/09/22 16:20 MCHC 31.2 g/dL (30.0-36.0) 03/09/22 16:20 RDW 18.1 % (12.1-15.1) H 03/09/22 16:20 Plt Count 193 10^3/cmm (130-400) 03/09/22 16:20 MPV 11.9 fL (7.4-10.4) H 03/09/22 16:20 Neut % (Auto) 83.3 % 03/09/22 16:20 Lymph % (Auto) 7.0 % 03/09/22 16:20 Faulk % (Auto) 6.7 % 03/09/22 16:20 Eos % (Auto) 2.1 % 03/09/22 16:20 Baso % (Auto) 0.1 % 03/09/22 16:20 Neut # (Auto) 12.10 10^3/uL (1.8-7.7) H 03/09/22 16:20 Lymph # (Auto) 1.0 10^3/uL (0.8-4.8) 03/09/22 16:20 Faulk # (Auto) 1.0 10^3/uL (0.2-0.9) H 03/09/22 16:20 Eos # (Auto) 0.3 10^3/uL (0.0-0.8) 03/09/22 16:20 Baso # (Auto) 0.0 10^3/uL (0.0-0.1) 03/09/22 16:20 Nucleated RBC % (auto) 0 % 03/09/22 16: Nucleated RBCs # 0.0 /100WBC 03/09/22 16:20 Specimen Type Venous 03/09/22 18:13 Sample Site Radial, left 03/09/22 18:13 ABG pH 7.24 (7.35-7.45) L 03/09/22 18:13 ABG pCO2 68.9 mmHg (35-45) H* 03/09/22 18:13 ABG pO2 25.1 mmHg (80.0-100.0) L* 03/09/22 18:13 ABG HCO3 29.4 mmol/L (22-26) H 03/09/22 18:13 ABG Base Excess 0.9 mmol/L (-2.0-2.0) 03/09/22 18:13 Jose Test Pos 03/09/22 18:13 Hematocrit 30.5 % (42-52) L 03/09/22 18:13 O2 Delivery Device Bipap 03/09/22 18:13 FiO2 28.0 % 03/09/22 18:13 Palliative Medicine Physician ID Ed 03/09/22 18:13 Sodium Cancelled 03/09/22 16:20 Potassium Cancelled 03/09/22 16:20 Chloride Cancelled 03/09/22 16:20 Carbon Dioxide Cancelled 03/09/22 16:20 Anion Gap Cancelled 03/09/22 16:20 BUN Cancelled 03/09/22 16:20 Creatinine Cancelled 03/09/22 16:20 GFR Calculation Cancelled 03/09/22 16:20 Glucose Cancelled 03/09/22 16:20 Calculated Osmolality Cancelled 03/09/22 16:20 Calcium Cancelled 03/09/22 16:20 Troponin T Baseline 310 ng/L (0-15) H* 03/09/22 16:20 SARS-CoV-2 Ag (Rapid) Negative (Negative) 03/09/22 16:28 Imaging Data Other Imaging: Radiologist's impression: [place] [address] CT Scan Report Signed Patient: Anshu Hurt Unit #: [id number] : 1950 Age/Sex: 72 / M ADM Date: 03/09/22 Loc: ER Room/Bed: Attending Dr: Ordering Provider/Ordering MD: Terrence Sharp MD Date of Service: 03/09/22 Procedure(s): CT angio chest abdomen pelvis Accession Number(s): [id number] Report Number: [id number] PROCEDURE INFORMATION: Exam: CTA Chest With Contrast CTA Abdomen and Pelvis With Contrast Exam date and time: 03/09/2022 5:49 PM Age: 72 years old Clinical indication: Sternal or substernal pain; Abdominal pain; Acute; Prior surgery; Surgery type: Dialysis cath, ; additional info: Chest pain TECHNIQUE: Imaging protocol: Computed tomographic angiography of the chest with contrast. Computed tomographic angiography of the abdomen and pelvis with contrast. 3D rendering (Not supervised by radiologist): MIP and/or 3D reconstructed images were created by the technologist. Radiation optimization: All CT scans at this facility use at least one of these dose optimization techniques: automated exposure control; mA and/or kV adjustment per patient size (includes targeted exams where dose is matched to clinical indication); or iterative reconstruction. Contrast material: OMNI 350; Contrast volume: 95 ml; Contrast route: INTRAVENOUS (IV);? COMPARISON: CT abdomen pelvis con [id number] 10/24/2020 1:01 PM RADIATION DOSE METRICS: Total DLP (mGy-cm): 2192.64 FINDINGS: Tubes, catheters and devices: Right chest implanted medical doctor nuclear medicine. Percutaneous catheter seen with tip coiled in the pelvis. VASCULATURE: Pulmonary arteries: Normal. No pulmonary emboli. Aorta: Focal saccular 2.8 cm infrarenal abdominal aortic aneurysm without rupture. Celiac trunk and mesenteric arteries: No occlusion or significant stenosis. Renal arteries: No occlusion or significant stenosis. Right iliac arteries: No occlusion or significant stenosis. Left iliac arteries: No occlusion or significant stenosis. CHEST: Lungs: Right greater than left dependent atelectasis versus infiltrate. Pleural spaces: Large right pleural effusion. Heart: Cardiomegaly. Coronary artery atherosclerotic calcifications. ABDOMEN AND PELVIS: Liver: No mass. Gallbladder and bile ducts: Cholecystectomy suspected. Common bile duct is prominent measuring 15.8 mm without obstructing lesion, likely related to prior cholecystectomy, MRCP could further evaluate this as clinically indicated. Pancreas: Pancreatic atrophy with multiple punctate benign-appearing parenchymal calcifications. Spleen: Unremarkable. No splenomegaly. Adrenal glands: Unremarkable. No mass. Kidneys and ureters: Several right kidney cysts. Stomach and bowel: Unremarkable. No obstruction. No mucosal thickening. Appendix: No evidence of appendicitis. Intraperitoneal space: Large amount of abdominal ascites. Urinary bladder: Unremarkable. No mass. Reproductive: Unremarkable as visualized. Lymph nodes: Unremarkable. No enlarged lymph nodes. Bones/joints: Unremarkable. No acute fracture. Soft tissues: Unremarkable. CT/CT angio chest abdomen pelvis IMPRESSION: 1. Negative for pulmonary embolus. 2. Cardiomegaly. 3. Coronary artery atherosclerotic calcifications. 4. Right chest implanted medical doctor nuclear medicine. 5. Large right pleural effusion. 6. Right greater than left dependent atelectasis versus infiltrate. 7. Large amount of abdominal ascites. 8. Several right kidney cysts. 9. Pancreatic atrophy with multiple punctate benign-appearing parenchymal calcifications. 10. Cholecystectomy suspected. 11. Common bile duct is prominent measuring 15.8 mm without obstructing lesion, likely related to prior cholecystectomy, MRCP could further evaluate this as clinically indicated. 12. Percutaneous catheter seen with tip coiled in the pelvis. 13. Focal saccular 2.8 cm infrarenal abdominal aortic aneurysm without rupture. ? COMMENTS: Consistent with the [employer]'s Incidental Findings Committee white paper (J Am Yaw Radiol 2018): Any incidental renal lesion less than 1 cm or classified as too small to characterize, or any incidental cystic renal lesion characterized as simple-appearing, is likely benign. No follow-up imaging is recommended for these lesions per consensus recommendations based on imaging criteria. ? Dictated By: Faraz Rodríguez MD Signed By: Faraz Rodríguez MD Signed Date/Time: 03/09/221858 DD/ [address] [place] [address] XRay Report Signed Patient: Anshu Hurt Unit #: [id number] : 1950 Age/Sex: 72 / M ADM Date: 03/09/22 Loc: ER Room/Bed: Attending Dr: Ordering Provider/Ordering MD: Terrence Sharp MD Date of Service: 03/09/22 Procedure(s): XR chest 1V portable [id number] Accession Number(s): [id number] Report Number: [id number] PROCEDURE INFORMATION: Exam: XR Chest Exam date and time: 03/09/2022 4:08 PM Age: 72 years old Clinical indication: Pain; Angina pectoris; Additional info: Chest pain TECHNIQUE: Imaging protocol: Radiologic exam of the chest. Views: 1 view. COMPARISON: CT chest [facility] [id number] 02/18/2022 10:38 AM FINDINGS: Tubes, catheters and devices: Stimulator device noted in the right chest wall with lead extending into the right cervical soft tissues. Lungs: No consolidation. Pleural spaces: Moderate volume right and small volume left pleural effusions. No pneumothorax. Heart/Mediastinum: No cardiomegaly. Bones/joints: Visualized osseous structures are intact. XR/XR chest 1V portable [id number] IMPRESSION: Moderate volume right and small volume left pleural effusions. ? Dictated By: Jaziel Johnson DO Signed By: Jaziel Johnson DO Signed Date/Time: 03/09/22 161 DD/ 1608 Critical Care Time Critical Care Time: Critical Care Time: Yes Total Critical Care Time: 36 Attestation: The high probability of a clinically significant, sudden or life threatening deterioration of the patient's pulmonary system(s) required my full and direct attention, intervention and personal management. The critical care time is as shown. This time is in addition to time spent performing any reported procedures but includes the following: [x] Data and vital sign review and interpretation [x] Patient assessment, examination and intervention [x] Documentation [x] Medication orders and management Discharge Plan Discharge Patient Disposition: Admitted As Inpatient Clinical Impression: Pleural effusion, Hypercapnic respiratory failure, COPD exacerbation, Bilateral wheezing, Pneumonia Condition: Stable Coding Level of Care Code ED Plant Supervisor for Amarag Fwd Exam Comprehensive
[2022-03-09 16:38] LABS: Basophils % 0.1 %; Eosinophils # 0.3 10^3/uL (0.0-0.8); Eosinophils % 2.1 %; Hematocrit 33.7 % (42.0-52.0); Hemoglobin 10.5 g/dL (11.7-16.6); Mean Corpuscular HGB Conc 31.2 g/dL (30.0-36.0); Mean Corpuscular Hemoglobin 29.9 pg (28.0-34.0); Mean Platelet Volume 11.9 fL (7.4-10.4); Monocytes % 6.7 %; Neutrophils % 83.3 %; Nucleated Red Blood Cells % 0 %; Platelet Count 193 10^3/cmm (130-400); Red Blood Count 3.51 10^6/uL (4.1-5.3); Red Cell Distribution Width 18.1 % (12.1-15.1); White Blood Count 14.5 10^3/uL (4.0-10.0)
[2022-03-09 17:07] LABS: Troponin(5th) Baseline 310 ng/L (0-15)
--- NOTE | 2022-03-09 17:30 | ECG_ITS ---
[facility] Test Date: 2022-03-09 Pat Name: Anshu Hurt Department: Room: Gender: Male Community Service Specialist: : 1950 Requested By: Terrence Sharp Order Number: [id number] Murtaza MD: Lucius Stapleton M.D. Measurements Intervals [place] Rate: 70 P: 54 MO: 213 QRS: -31 QRSD: 96 T: 71 QT: 380 QTc: 411 Interpretive Statements SINUS RHYTHM WITH FIRST DEGREE AV BLOCK LEFT AXIS DEVIATION [QRS AXIS < -30] MODERATE VOLTAGE CRITERIA FOR LVH, CONSIDER NORMAL VARIANT [MEETS CRITERIA IN ONE OF: R(aVL), S(V1), R(V5), R(V5/V6)+S(V1)] Compared to ECG 03/09/2022 15:17:23 ST (T wave) deviation no longer present Electronically Signed On 03-10-2022 21:23:20 CDT by Lucius Stapleton M.D. [id number]
[2022-03-09 17:36] LABS: SARS Covid-2 Antigen Negative (Negative)
--- NOTE | 2022-03-09 17:39 | CTR_ITS ---
PROCEDURE INFORMATION: Exam: CTA Chest With Contrast CTA Abdomen and Pelvis With Contrast Exam date and time: 03/09/2022 5:49 PM Age: 72 years old Clinical indication: Sternal or substernal pain; Abdominal pain; Acute; Prior surgery; Surgery type: Dialysis cath, ; additional info: Chest pain TECHNIQUE: Imaging protocol: Computed tomographic angiography of the chest with contrast. Computed tomographic angiography of the abdomen and pelvis with contrast. 3D rendering (Not supervised by radiologist): MIP and/or 3D reconstructed images were created by the technologist. Radiation optimization: All CT scans at this facility use at least one of these dose optimization techniques: automated exposure control; mA and/or kV adjustment per patient size (includes targeted exams where dose is matched to clinical indication); or iterative reconstruction. Contrast material: OMNI 350; Contrast volume: 95 ml; Contrast route: INTRAVENOUS (IV); COMPARISON: CT abdomen pelvis wo con [id number] 10/24/2020 1:01 PM RADIATION DOSE METRICS: Total DLP (mGy-cm): 2192.64 FINDINGS: Tubes, catheters and devices: Right chest implanted medical equipment technician. Percutaneous catheter seen with tip coiled in the pelvis. VASCULATURE: Pulmonary arteries: Normal. No pulmonary emboli. Aorta: Focal saccular 2.8 cm infrarenal abdominal aortic aneurysm without rupture. Celiac trunk and mesenteric arteries: No occlusion or significant stenosis. Renal arteries: No occlusion or significant stenosis. Right iliac arteries: No occlusion or significant stenosis. Left iliac arteries: No occlusion or significant stenosis. CHEST: Lungs: Right greater than left dependent atelectasis versus infiltrate. Pleural spaces: Large right pleural effusion. Heart: Cardiomegaly. Coronary artery atherosclerotic calcifications. ABDOMEN AND PELVIS: Liver: No mass. Gallbladder and bile ducts: Cholecystectomy suspected. Common bile duct is prominent measuring 15.8 mm without obstructing lesion, likely related to prior cholecystectomy, MRCP could further evaluate this as clinically indicated. Pancreas: Pancreatic atrophy with multiple punctate benign-appearing parenchymal calcifications. Spleen: Unremarkable. No splenomegaly. Adrenal glands: Unremarkable. No mass. Kidneys and ureters: Several right kidney cysts. Stomach and bowel: Unremarkable. No obstruction. No mucosal thickening. Appendix: No evidence of appendicitis. Intraperitoneal space: Large amount of abdominal ascites. Urinary bladder: Unremarkable. No mass. Reproductive: Unremarkable as visualized. Lymph nodes: Unremarkable. No enlarged lymph nodes. Bones/joints: Unremarkable. No acute fracture. Soft tissues: Unremarkable. CT/CT angio chest abdomen pelvis IMPRESSION: 1. Negative for pulmonary embolus. 2. Cardiomegaly. 3. Coronary artery atherosclerotic calcifications. 4. Right chest implanted medical equipment technician. 5. Large right pleural effusion. 6. Right greater than left dependent atelectasis versus infiltrate. 7. Large amount of abdominal ascites. 8. Several right kidney cysts. 9. Pancreatic atrophy with multiple punctate benign-appearing parenchymal calcifications. 10. Cholecystectomy suspected. 11. Common bile duct is prominent measuring 15.8 mm without obstructing lesion, likely related to prior cholecystectomy, MRCP could further evaluate this as clinically indicated. 12. Percutaneous catheter seen with tip coiled in the pelvis. 13. Focal saccular 2.8 cm infrarenal abdominal aortic aneurysm without rupture. COMMENTS: Consistent with the [employer] [employer]'s Incidental Findings Committee white paper (J Am Yaw Radiol 2018): Any incidental renal lesion less than 1 cm or classified as too small to characterize, or any incidental cystic renal lesion characterized as simple-appearing, is likely benign. No follow-up imaging is recommended for these lesions per consensus recommendations based on imaging criteria.
--- NOTE | 2022-03-09 17:41 | ECG_ITS ---
[facility] Test Date: 2022-03-09 Pat Name: Anshu Hurt Department: Room: Gender: Male Frame Aligner: : 1950 Requested By: Terrence Sharp Order Number: [id number] Murtaza MD: Lucius Stapleton M.D. Measurements Intervals [place] Rate: 74 P: 47 MO: 201 QRS: -35 QRSD: 93 T: 71 QT: 361 QTc: 403 Interpretive Statements SINUS RHYTHM WITH SINUS ARRHYTHMIA LEFT AXIS DEVIATION [QRS AXIS < -30] LEFT VENTRICULAR HYPERTROPHY AND ST-T CHANGE [VOLTAGE CRITERIA PLUS ST/T ABNORMALITY] POSSIBLE ANTERIOR MYOCARDIAL INFARCTION , OF INDETERMINATE AGE [30 ms Q WAVE IN V3/V4, OR R < 0.2 mV IN V4] Compared to ECG 03/09/2022 17:30:50 ST (T wave) deviation now present Myocardial infarct finding now present First degree AV block no longer present Electronically Signed On 03-11-2022 6:37:43 CDT by Lucius Stapleton M.D. [id number]
[2022-03-09] MEDS: iohexol 350 mg/mL 100 mL Btl IV (18:02)
[2022-03-09 18:23] LABS: ABG PH Result 7.24 (7.35-7.45); Arterial Blood Gas Hematocrit 30.5 % (42-52); Base Excess ABG 0.9 mmol/L (-2.0-2.0); Blood Gas Allen Test Pos; HCO3 ABG 29.4 mmol/L (22-26); PO2 ABG 25.1 mmHg (80.0-100.0)
--- NOTE | 2022-03-09 18:46 | PC.NURSE ---
Pts daughter came to the nursing station and said her dad needed help, i went into the room and the pt was in resp. distress and his PO was 75% on 3lpm. I placed him on a NRB at 15lpm and went and got Dr. Sharp, we entered the room and pt was pale, he was complaining of severe chest pain on the right side, Dr was at bedside, i gave him 4 mg morphine per verbal order, we then took him straight to CT where and myself stayed with the pt. Pt was starting to breath better and said his pain was alittle better. Pt was taken back to his room where I stayed in the room with him and RT placed him on BiPap which seemed to help his breathing alot, his color got better and he was more alert and talking with me, said he felt better
[2022-03-09 18:56] LABS: Blood Gas Operator Identificat ED; Blood Gas Sample Site Radial, left; Blood Gas Sample Type Venous; Oxygen Device BIPAP
[2022-03-09 18:57] LABS: ABG PCO2 68.9 mmHg (35-45)
--- NOTE | 2022-03-09 19:54 | P.CONIM_ITS ---
Providers/Reason For Consult Consulting Physician/Specialty*: sherita bruce md / telenephrology Reason for Consult*: ESRD care Requesting Physician: Dr Quesada Attending Physician: Dr Quesada Primary Care Provider: Irene Jones History of Present Illness History of Present Illness Anshu Hurt is a 72 year old male h/o ESRD on CCPD, CAD- recent stents- here at [facility] [place] and at [facility]. Pt also w/ recent pna. history of IDDM<gout, htn, and pancreatitis. Pt w/ multiple hospitalizations in last month. pt presents today w/ severe sob. Labs reveal wbc of 14, trop t 310, abg w/ resp acidosis- (VBG 7.24/69/25.) CT angio neg for PE. revelaed large rt pleural effusion. renal called for ESRD care. Review of Systems Narrative: weak, sob, orthopnea, slater, chest pain. no edema Medications/Allergies Home Medications Medication Instructions Recorded Confirmed Last Taken Type insulin aspart U-100 100 unit/mL See Rx Instructions .Route .COMPLEX 09/05/19 03/09/22 03/09/22 History (3 mL) subcutaneous pen (Novolog Flexpen U-100 Insulin aspart) omeprazole 20 mg capsule,delayed 20 mg PO BID 09/05/19 03/09/22 03/09/22 History release potassium chloride 20 mEq 20 meq PO QAM 09/05/19 03/09/22 03/09/22 History tablet,extended release insulin glargine 100 unit/mL (3 See Rx Instructions .Route .COMPLEX 10/24/20 03/09/22 03/09/22 History mL) subcutaneous pen (Basaglar KwikPen U-100 Insulin) magnesium oxide 400 mg (241.3 mg 400 mg PO QAM 10/24/20 03/09/22 03/09/22 History magnesium) tablet (MagOx) albuterol sulfate 90 mcg/actuation 2 inh inhalation Q6H PRN shortness 02/17/22 03/09/22 03/09/22 Rx aerosol inhaler of breath or wheezing #8 grams calcium acetate(phosphat bind) 667 See Rx Instructions .Route .COMPLEX 02/18/22 03/09/22 03/09/22 History mg capsule cholecalciferol (vitamin D3) 1,250 50,000 unit PO Q7D 02/18/22 03/09/22 03/04/22 History mcg (50,000 unit) capsule levothyroxine 150 mcg tablet 150 mcg PO QAM 02/18/22 03/09/22 03/09/22 History (Euthyrox) [id number] See Rx Instructions .Route .COMPLEX 02/18/22 03/09/22 03/09/22 History 12,000-38,000-60,000 unit capsule,delayed rel (Creon) pregabalin 150 mg capsule (Lyrica) 150 mg PO BEDTIME 02/18/22 03/09/22 03/08/22 History sertraline 50 mg tablet 75 mg PO QPM 02/18/22 03/09/22 03/08/22 History amoxicillin 875 mg-potassium 1 tab PO BID #10 tabs 02/21/22 03/09/22 03/09/22 Rx clavulanate 125 mg tablet aspirin 81 mg tablet,delayed 81 mg PO BEDTIME #120 tabs 02/21/22 03/09/22 03/09/22 Rx release atorvastatin 40 mg tablet 40 mg PO QPM #90 tabs 02/21/22 03/09/22 03/08/22 Rx clopidogrel 75 mg tablet 75 mg PO DAILY@2100 #120 tabs 02/21/22 03/09/22 03/09/22 Rx metoprolol tartrate 25 mg tablet 12.5 mg PO BID 03/09/22 03/09/22 03/09/22 History nitroglycerin 0.4 mg sublingual 0.4 mg sublingual Q5M PRN Chest 03/09/22 03/09/22 Unknown History tablet (Nitrostat) Pain temazepam 15 mg capsule 15 mg PO DAILY 03/09/22 03/09/22 03/08/22 History Allergies Allergy/AdvReac Type Severity Reaction Status Date / Time CARBIDOPA-LEVODOPA Allergy Unknown Uncoded 03/09/22 16:39 PFSH Acute PFSH: Medical History Depression Diabetes ESRD (end stage renal disease) Essential tremor Gastroparesis Gout Hyperlipidemia Hypertension Hypothyroidism (acquired) Pancreatitis takes chronic pancrease Parkinsonian tremor Peritoneal dialysis catheter in place Stage 5 chronic kidney disease Tremor Vitiligo Weakness Surgical History History of appendectomy History of carpal tunnel release left wrist 1974 History of cholecystectomy Family History Other CAD (coronary artery disease) Cancer Diabetes Hypertension Denies family history of Stroke Social History Smoking and tobacco status: former smoker Quit status (tobacco): has quit using tobacco Year quit tobacco: 1992 Alcohol intake: never Household members: spouse Marital status: Vitals/I&O/Wt Last Vital Signs Temp 98.1 F 03/09/22 15:23 Pulse 79 03/09/22 18:25 Resp 16 03/09/22 18:22 BP 139/74 03/09/22 18:22 Pulse Ox 99 03/09/22 18:25 O2 Del Method 03/09/22 18:22 O2 Flow Rate 3 03/09/22 16:54 FiO2 28 03/09/22 18:25 Weight last 48 hrs Weight 90.718 kg Physical Exam Narrative: sob on bipap vs noted heent - nc/at, eomi, anicteric neck supple lungs dull bases heart reg abd soft, nt, distended, PD catheter ext no edema exam w/ RN- telehealth visit Data : 03/09/22 16:20 03/09/22 16:20 A&P Assessment and plan (1) End stage renal disease: 72 yr old man CAD s/p recent stents, IDDM, ESRD on CCPD for 2.5 yrs. He normally does 10 hrs CCPD w/ two 6 liter bags- usually 1.25% and 2.5 % gluc and daytime icodextran. Pt is here w/ severe sob 1. recent CAD and stents- please check echo and cardiology consult 2. pleural effusions- attempt thoracentesis 3. ESRD- will drain abd and try CAPD to see if can help w/ pleural effusion. will attempt to assess for a diaphragmatic leak. do CAPD 4 hr exchanges w/ 2l 2.5% glucose 4. monitor leukocytosis 5. Resp acidosis per pulm seen and examine dw/ rN- telehealth visit informed consent for Telehealth and for dialysis obtained discussed w/ Dr Sharp, pts , and Dr Quesada time spent > 55 min Status: Acute Plan see above Consult Attestations Medical Necessity Statement: hypoxemia, hypercapneia ESRD, CAD Time Spent in Patient Care: Greater than 35 minutes (>than 50% of time spent in counselling and/or direct pt care on unit) . Coding Level of Care Code Acute Predictive Maintenance Technician for Anatoliy Hickman Diagnoses End stage renal disease N18.6
[2022-03-09 20:31] LABS: Troponin 5 2HR Delta 0 ABS# (0-10)
[2022-03-09 20:34] LABS: Anion Gap 18.8 (5-19); Blood Urea Nitrogen 61 mg/dL (8-23); Calcium 8.1 mg/dL (8.5-10.5); Carbon Dioxide 26 mmol/L (22-29); Chloride 92 mmol/L (98-107); Glomerular Filtration Rate 6.5 mL/min (90-130); Glucose 67 mg/dL (65-115); Osmolality Calculated 288 mOsm/kg (285-295); Potassium 5.8 mmol/L (3.5-5.1); Sodium 131 mmol/L (136-145)
[2022-03-09 20:59] LABS: Uric Acid 7.5 mg/dL (3.4-7.0)
--- NOTE | 2022-03-09 21:41 | PM.HP ---
Providers/Chief Complaint Admitting Physician: Sarah Quesada MD Primary Care Provider: Irene Jones Chief Complaint: Chest pain History of Present Illness Anshu Hurt is a 72 year old male with past medical history of end-stage renal disease dependent on peritoneal dialysis, CAD status post recent PCI February 21 DESx2, balloon angioplasty along with another DESx1 February 2022, Parkinson's disease (has deep brain stimulator), hypothyroidism, hypertension, hyperlipidemia, gout, diabetes, gastroparesis presented to the hospital today for altered mental status and shortness of breath. He was diagnosed with a right pleural effusion as an outpatient recently at another hospital but did not get thoracentesis done due to the fact that he was on aspirin Plavix. Patient was placed on oxygen and sent home. Patient was supposed to follow-up with a tea bag machine tender on March 10, 2022. Patient's states that patient was treated for bronchitis with antibiotics for 10 days on February 17, 2022 and subsequently saw vascular surgeon for necrotic wound of right finger and has been on antibiotics for that as well. Overall he has been on oral antibiotics for the last 15 to 20 days. She also states that at one point his heart rate was noted to be 32 at urgent care outpatient. He has reported time and time again of chest pain mainly on his right side associated with breathing. Within the last 2 weeks he was also given a diagnosis of pneumonia and treated for that again with oral antibiotics. Patient unable to provide any history at this time. He is on BiPAP and somewhat altered. She also states that for the last few weeks he has been getting more and more altered and today was very sleepy along with short of breath and therefore she decided to bring him to the hospital. They were at their primary care's office this past Wednesday and his oxygen saturation was 81%. This was attributed to his pleural effusion. At this time when seen patient denies being in any pain, denies cough, denies shortness of breath (currently on BiPAP mask) and says that he is comfortable. He does not talk very much and answers mainly yes versus no. Unable to fully assess if he is oriented as patient falls back asleep during the conversation. However earlier when seen by ER doc there were moments when patient was alert and oriented and was speaking to his daughter on the phone. Patient decided he wanted to be a full code. Family is also in agreement at this time. When seen by me at bedside patient's blood pressure was 80/57 and subsequently 90/62. Heart rate 70s, saturation 100% on BiPAP. Patient's states that his baseline blood pressure at home runs anywhere from 1 10-1 20 systolic over 70-80 diastolic. ED course: Blood pressure on arrival 139/74, respiratory rate 16, pulse 79, temperature 98.1, on 3 L nasal cannula. Subsequently switched onto BiPAP. X-ray showed large pleural effusion. WBC 14.5. CTA chest ordered. It showed possible right-sided infiltrate versus atelectasis. Negative for PE. Large amount of abdominal ascites. Common bile duct prominent measuring 15.8 mm, focal saccular 2.8 cm infrarenal abdominal aortic aneurysm without rupture. Pancreatic atrophy with multiple punctate benign-appearing parenchymal calcifications. He was noted to be in significant respiratory distress and expiratory wheezes. Patient received albuterol and placed on BiPAP. ABG showed pH 7.24/68.9. Baseline troponin 315. EKG did not show any acute ischemic changes. Nephrology consult placed, pulmonology critical care consult placed. Medications/Allergies Home Medications Medication Instructions Recorded Confirmed Last Taken Type insulin aspart U-100 100 unit/mL See Rx Instructions .Route .COMPLEX 09/05/19 03/09/22 03/09/22 History (3 mL) subcutaneous pen (Novolog Flexpen U-100 Insulin aspart) omeprazole 20 mg capsule,delayed 20 mg PO BID 09/05/19 03/09/22 03/09/22 History release potassium chloride 20 mEq 20 meq PO QAM 09/05/19 03/09/22 03/09/22 History tablet,extended release insulin glargine 100 unit/mL (3 See Rx Instructions .Route .COMPLEX 10/24/20 03/09/22 03/09/22 History mL) subcutaneous pen (Basaglar KwikPen U-100 Insulin) magnesium oxide 400 mg (241.3 mg 400 mg PO QAM 10/24/20 03/09/22 03/09/22 History magnesium) tablet (MagOx) albuterol sulfate 90 mcg/actuation 2 inh inhalation Q6H PRN shortness 02/17/22 03/09/22 03/09/22 Rx aerosol inhaler of breath or wheezing #8 grams calcium acetate(phosphat bind) 667 See Rx Instructions .Route .COMPLEX 02/18/22 03/09/22 03/09/22 History mg capsule cholecalciferol (vitamin D3) 1,250 50,000 unit PO Q7D 02/18/22 03/09/22 03/04/22 History mcg (50,000 unit) capsule levothyroxine 150 mcg tablet 150 mcg PO QAM 02/18/22 03/09/22 03/09/22 History (Euthyrox) [id number] See Rx Instructions .Route .COMPLEX 02/18/22 03/09/22 03/09/22 History 12,000-38,000-60,000 unit capsule,delayed rel (Creon) pregabalin 150 mg capsule (Lyrica) 150 mg PO BEDTIME 02/18/22 03/09/22 03/08/22 History sertraline 50 mg tablet 75 mg PO QPM 02/18/22 03/09/22 03/08/22 History amoxicillin 875 mg-potassium 1 tab PO BID #10 tabs 02/21/22 03/09/22 03/09/22 Rx clavulanate 125 mg tablet aspirin 81 mg tablet,delayed 81 mg PO BEDTIME #120 tabs 02/21/22 03/09/22 03/09/22 Rx release atorvastatin 40 mg tablet 40 mg PO QPM #90 tabs 02/21/22 03/09/22 03/08/22 Rx clopidogrel 75 mg tablet 75 mg PO DAILY@2100 #120 tabs 02/21/22 03/09/22 03/09/22 Rx metoprolol tartrate 25 mg tablet 12.5 mg PO BID 03/09/22 03/09/22 03/09/22 History nitroglycerin 0.4 mg sublingual 0.4 mg sublingual Q5M PRN Chest 03/09/22 03/09/22 Unknown History tablet (Nitrostat) Pain temazepam 15 mg capsule 15 mg PO DAILY 03/09/22 03/09/22 03/08/22 History Allergies Allergy/AdvReac Type Severity Reaction Status Date / Time CARBIDOPA-LEVODOPA Allergy Unknown Uncoded 03/09/22 16:39 PFSH Acute PFSH: Medical History (Updated 03/09/22 @ 22:23 by Sarah Quesada MD) Depression Diabetes ESRD (end stage renal disease) Essential tremor Gastroparesis Gout Hyperlipidemia Hypertension Hypothyroidism (acquired) Pancreatitis takes chronic pancrease Parkinsonian tremor Peritoneal dialysis catheter in place Stage 5 chronic kidney disease Tremor Vitiligo Weakness Surgical History History of appendectomy History of carpal tunnel release left wrist 1975 History of cholecystectomy Family History Other CAD (coronary artery disease) Cancer Diabetes Hypertension Denies family history of Stroke Social History Smoking and tobacco status: former smoker Quit status (tobacco): has quit using tobacco Year quit tobacco: 1992 Alcohol intake: never Household members: spouse Marital status: Vitals/I&O/Wt Last Vital Signs Temp 98.1 F 03/09/22 15:23 Pulse 71 03/09/22 21:05 Resp 13 03/09/22 21:05 BP 118/65 03/09/22 21:05 Pulse Ox 98 03/09/22 21:05 O2 Del Method 03/09/22 20:55 O2 Flow Rate 3 03/09/22 16:54 FiO2 28 03/09/22 18:25 Weight last 48 hrs Weight 90.718 kg Physical Exam Narrative: General: Somewhat alert, falls asleep during conversation, able to answer yes or no questions at this time, patient seen in no acute distress at time of my evaluation resting comfortably on BiPAP mask. HEENT: Normocephalic, atraumatic, EOMI, Cardio: Regular rate rhythm, normal S1-S2, heart sounds not muffled, Respiratory: Very diminished bilateral air entry, clear to auscultation however no gross wheezes or rhonchi at this time, mild bibasilar crackles present GI: Abdomen soft, distended, nontender, slightly sluggish bowel sounds Extremities: All 4 extremities are warm with toes bilaterally slightly cooler. No bilateral lower extremity edema noted, calves symmetrical, right hand third finger has necrotic ulcer present at tip with mild erythema Neuro: Cranial nerves intact, patient able to follow commands. He has to be prompted several times however it eventually does do what you ask him to. No arm drift noted, strength 5 out of 5 bilateral upper extremity and lower extremity. Face symmetrical, gait not tested, no gross focal neurological deficit. Data : 03/09/22 16:20 03/09/22 19:06 A&P Assessment and plan (1) Pleural effusion: Status: Acute (2) Hypercapnic respiratory failure: Status: Acute (3) Bilateral wheezing: Status: Acute (4) Pneumonia: Status: Acute (5) End stage renal disease: Status: Acute (6) Acute hypokalemia: Status: Acute (7) Hypertension: Status: Acute Qualifiers: Hypertension type: essential hypertension Qualified Code(s): I10 - Essential (primary) hypertension (8) ESRD (end stage renal disease): Status: Acute (9) Pancreatitis: Status: Acute (10) Stage 5 chronic kidney disease: Status: Acute (11) Parkinsonian tremor: Status: Acute (12) Peritoneal dialysis catheter in place: Status: Acute (13) Hyperlipidemia: Status: Acute Qualifiers: Hyperlipidemia type: unspecified Qualified Code(s): E78.5 - Hyperlipidemia, unspecified (14) Diabetes: Status: Acute Qualifiers: Diabetes mellitus type: type 2 Diabetes mellitus fpc insulin use: with fpc use Diabetes mellitus complication status: with kidney complications Diabetes mellitus complication detail: with chronic kidney disease Chronic kidney disease stage: on chronic dialysis Qualified Code(s): E11.22 - Type 2 diabetes mellitus with diabetic chronic kidney disease; N18.6 - End stage renal disease; Z79.4 - MCC (current) use of insulin; Z99.2 - Dependence on renal dialysis (15) Pulmonary nodule: Status: Acute Plan #Acute hypoxic hypercarbic respiratory failure #Right sided large pleural effusion #Altered mental status secondary to sepsis and hypercarbic respiratory failure #Sepsis secondary to pneumonia #End-stage renal disease, peritoneal dialysis dependent #CAD status post PCI 2019 DESx1, 2021 DESx3 (2 angiograms in recent 3 weeks) #Hypertension, Hyperlipidemia #Diabetes mellitus type 2 complicated by diabetic gastroparesis #Pancreatic atrophy #Anemia most likely 2/2 ESRD #Pulmonary Nodule ? Nephrology, pulmonology consulted by ER ? Cover with broad-spectrum antibiotics and antifungal since patient has been on outpatient antibiotic therapy for the last few weeks. Noted to be hypotensive in ER 80/57, 90/60. Vanc, Zosyn, Caspofungin for now. May add levophed if required. Will continue to monitor pressure. -Check blood culture, urine culture (he does make half a cup of urine a day), sputum gram stain culture, check peritoneal fluid for cell studies and culture ? Thoracentesis ordered for AM. - PD to be done tonight. ? Continue aspirin, statin, Plavix, sertraline, levothyroxine ? I will hold Lyrica, beta-catie ? Continue on sliding scale insulin -Home medications will need to be confirmed from the family. They asked me to call [facility] however it is closed at this time. -We will need to request records from [facility] and [facility]. -We will repeat ABG, trend troponins, check BNP, check TSH, check COVID -Most recent echo February 18, 2022 shows LVEF 50% with mild diffuse hypokinesia of septum and anteroseptal segments. - Repeat ECHO, Consider cardiology consult if needed. - Check iron studies, fobt - Pulm nodule will need f/u outpatient - Monitor in ICU - NPO till bedside swallow - Check head CT All questions answered. Patient's and daughter at bedside updated in detail. Full Code DVT PPX: Heparin subc Attestations Medical Necessity Statement*: Will require inpatient hospitalization for management of respiratory failure, pleural effusion and above co-morbid conditions. Patient to cross 2 midnight stay. Coding Level of Care Code Acute Central Sterilization Technician for Chg Fwd Diagnoses Pleural effusion J90 Hypercapnic respiratory failure J96.92 Bilateral wheezing R06.2 Pneumonia J18.9 End stage renal disease N18.6 Acute hypokalemia E87.6 Hypertension I10 Hypertension type: essential hypertension ESRD (end stage renal disease) N18.6 Pancreatitis K85.90 Stage 5 chronic kidney disease N18.5 Parkinsonian tremor G20 Peritoneal dialysis catheter in place Z99.2 Hyperlipidemia E78.5 Hyperlipidemia type: unspecified Diabetes E11.22; N18.6; Z79.4; Z99.2 Diabetes mellitus type: type 2 Diabetes mellitus long term care phlebotomist insulin use: with long term care phlebotomist use Diabetes mellitus complication status: with kidney complications Diabetes mellitus complication detail: with chronic kidney disease Chronic kidney disease stage: on chronic dialysis Pulmonary nodule R91.1 Time Spent (min) 60
[2022-03-09 22:12] LABS: NT Pro B Type Natriuretic Pept > 70000 pg/mL (0-125)
--- NOTE | 2022-03-09 22:17 | USCV_ITS ---
Anshu Hurt Age: 72 Gender: M : 1950 Exam Date: 03/09/2022 22:40 Ordering Phys: Sarah Quesada MD Technologist: [place] [facility] [place]: History of cardiac stenting BP: 120 / 76 HR: 73 Rhythm: Sinus Technical Quality: Adequate MEASUREMENTS (Male / Female) Normal Values 2D ECHO LV Diastolic Diameter PLAX 4.4 cm 4.2 - 5.9 / 3.9 - 5.3 cm LV Systolic Diameter PLAX 3.4 cm IVS Diastolic Thickness 1.5 cm 0.6 - 1.0 / 0.6 - 0.9 cm IVS Systolic Thickness 1.7 cm LVPW Diastolic Thickness 1.3 cm 0.6 - 1.0 / 0.6 - 0.9 cm LVPW Systolic Thickness 1.4 cm LVOT Diameter 2.1 cm LV Ejection Fraction 2D Teich 43.8 % LV Ejection Fraction MOD 2C 48.5 % LV Ejection Fraction 2C AL 48.3 % LA Diameter 4.0 cm LA Width 4.4 cm LA Height 5.0 cm RA Width 3.8 cm RA Height 4.7 cm Aorta at Sinotubular Diameter 3.1 cm IVC Diameter 0.8 cm M-MODE Aortic Annulus Diameter 3.0 cm LA Ao Ratio MM 1.3 MV E Point Septal Separation 0.6 cm DOPPLER AV Peak Velocity 158.0 cm/s LVOT Peak Velocity 87.0 cm/s AV Area Cont Eq vti 1.7 cm squared AV Area Cont Eq pk 1.8 cm squared MV Area PHT 3.4 cm squared Mitral E to A Ratio 0.9 MV E' Velocity 50.5 cm/s Mitral E to MV E' Ratio 9.4 Mitral E to LV E' Lateral Ratio 8.7 Mitral E to LV E' Septal Ratio 10.4 TR Peak Velocity 230.3 cm/s TR Peak Gradient 21.2 mmHg TV Peak E Velocity 55.0 cm/s Right Atrial Pressure 5.0 mmHg Pulmonary Artery Systolic Pressu 26.2 mmHg PV Peak Velocity 115.0 cm/s RV Acceleration Time 0.1 s RV Ejection Time 0.4 s RV AcT/ET 0.2 FINDINGS Left Ventricle Normal left ventricular size and mildly increased wall thickness. Mildly decreased left ventricle systolic function. Left ventricular ejection fraction is estimated at 45-50 %. Mild septal hypokinesis. Normal diastolic function. Right Ventricle Normal right ventricular size and systolic function. Right ventricular systolic pressure 26.2 mmHg. Right Atrium Normal right atrial size. Left Atrium Mildly increased left atrial size. Mitral Valve Mild mitral annular calcification. Mildly thickened mitral valve. No mitral valve stenosis. Mild mitral valve regurgitation. Aortic Valve Mildly thickened trileaflet aortic valve. No aortic valve stenosis. No aortic valve regurgitation. Tricuspid Valve Structurally normal tricuspid valve. No tricuspid valve stenosis. Mild tricuspid valve regurgitation. Pulmonic Valve Pulmonic valve not well visualized. No pulmonary valve stenosis. Trace pulmonary valve regurgitation. Pericardium No pericardial effusion. Aorta Normal size aortic root and proximal ascending aorta. IVC Small size inferior vena cava. CONCLUSIONS 1. Normal left ventricular size and mildly increased wall thickness. Mildly decreased left ventricle systolic function. Left ventricular ejection fraction is estimated at 45-50 %. Mild septal hypokinesis. Normal diastolic function. 2. Normal right ventricular size and systolic function. 3. Mild mitral and tricuspid valve regurgitation. 4. When compared to previous study dated 02/18/2022, there has been no significant change. Gladys Hwang MD (Electronically Signed) Final Date: 10 March 2022 15:49 S
--- NOTE | 2022-03-09 22:26 | CTR_ITS ---
PROCEDURE INFORMATION: Exam: CT Head Without Contrast Exam date and time: 03/10/2022 1:09 AM Age: 72 years old Clinical indication: Altered mental status/memory loss; Confusion or disorientation; Prior surgery; Surgery type: Brain stimulator; Patient HX: Sudden episode of confusion. TECHNIQUE: Imaging protocol: Computed tomography of the head without contrast. Radiation optimization: All CT scans at this facility use at least one of these dose optimization techniques: automated exposure control; mA and/or kV adjustment per patient size (includes targeted exams where dose is matched to clinical indication); or iterative reconstruction. COMPARISON: No relevant prior studies available. RADIATION DOSE METRICS: Total DLP (mGy-cm): 1129.28 FINDINGS: Tubes, catheters and devices: Bilateral stimulator lead tips terminate in the the thalamic regions with associated streak artifact. Brain: Arndt-white matter differentiation is preserved. No edema, mass effect or midline shift. No acute intracranial hemorrhage. There is encephalomalacia in the bifrontal region. Periventricular and deep white matter hypodensities compatible with chronic microvascular ischemic changes. Cerebral ventricles: No ventriculomegaly. Paranasal sinuses: Mild mucosal thickening noted in the sphenoid sinus. Mastoid air cells: No mastoid effusion. Bones/joints: No acute fracture. Soft tissues: Unremarkable. CT/CT head wo con* [id number] IMPRESSION: No acute intracranial abnormality.
[2022-03-09 22:50] LABS: ABG PCO2 54.2 mmHg (35-45); ABG PH Result 7.33 (7.35-7.45); Alveolar-Arterial Oxygen Gradi 1.3 mmHg (5-10); Arterial Blood Gas Hematocrit 26.9 % (42-52); Base Excess ABG 1.9 mmol/L (-2.0-2.0); Blood Gas Allen Test Pos; Blood Gas Sample Site Radial, left; Blood Gas Sample Type Arterial; Carboxyhemoglobin 2.2 %THgb (0.4-20.1); HCO3 ABG 28.4 mmol/L (22-26); HGB O2 Sat 91.3 % (95-100); Ionized Calcium Level - ABG 1.1 mmol/L (1.1-1.4); Methemoglobin 1.2 % (0.4-1.5); Oxygen Device NC; Oxygen Saturation ABG 94.5; PO2 ABG 73.3 mmHg (80.0-100.0); Potassium Level - ABG 5.7 mmol/L (3.5-5.0); Total Hemoglobin 8.8 g/dL (14-18)
[2022-03-09 23:30] LABS: Troponin 5 6HR 271.7 ng/L (0-15)
[2022-03-09] MEDS: dextrose 50% syringe 50 mL (23:32)
[2022-03-10] VITALS (50 sets, daily range): BP systolic 102–164; BP diastolic 46–90; PULSE 61–81; RESP 8–23; TEMP 36.2–37.1; O2SAT 95–99
[2022-03-10] MEDS: cefTRIAXone 1,000 MG in sodium chloride 0.9% (plus) 50 ML 100 MG IV (00:09)
[2022-03-10 00:34] LABS: Iron 21 ug/dL (59-158); Percent Saturation 11.5 % (20-50); Total Iron Binding Capacity 182 mcg/dl; Unsaturated Iron Binding 161 ug/dL (112-347)
[2022-03-10] MEDS: azithromycin 500 MG in sodium chloride 0.9% 250 ML 250 MG IV (00:39)
[2022-03-10 00:42] LABS: Procalcitonin 1.88 ng/mL (0-0.5)
[2022-03-10 00:48] LABS: Ferritin 1524 ng/mL (30-400)
[2022-03-10] MEDS: Dianeal low Ca w/2.5% dex 2,000 mL Bag 2000 ML INTRAPERIT ×5 (01:22→21:48)
[2022-03-10] MEDS: vancomycin 1,000 MG in sodium chloride 0.9% 250 ML 250 MG IV ×2 (02:12→11:18)
[2022-03-10] MEDS: piperacillin-tazobactam 3.375 GM in sodium chloride 0.9% (plus) 50 ML IV ×2 (03:10→15:10)
[2022-03-10 03:16] LABS: Glucose Point of Care 108 mg/dL (70-110)
--- NOTE | 2022-03-10 03:28 | ECG_ITS ---
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 Measurements Intervals [place] Rate: 68 P: 61 SD: 232 QRS: -23 QRSD: 85 T: 67 QT: 406 QTc: 432 Interpretive Statements SINUS RHYTHM WITH FIRST DEGREE AV BLOCK BORDERLINE LEFT AXIS DEVIATION [QRS AXIS < -20] Compared to ECG 03/09/2022 17:41:28 First degree AV block now present Sinus arrhythmia no longer present Left ventricular hypertrophy no longer present ST (T wave) deviation no longer present Myocardial infarct finding no longer present Electronically Signed On 03-11-2022 6:41:03 CDT by Lucius Stapleton M.D. [email or web address]
[2022-03-10 04:37] LABS: Eosinophils # 0.2 10^3/uL (0.0-0.8); Eosinophils % 2.7 %; Hematocrit 26.4 % (42.0-52.0); Hemoglobin 7.8 g/dL (11.7-16.6); Lymphocytes % 11.5 %; Mean Corpuscular HGB Conc 29.5 g/dL (30.0-36.0); Mean Corpuscular Hemoglobin 29.4 pg (28.0-34.0); Mean Corpuscular Volume 99.6 fl (80-94); Mean Platelet Volume 11.7 fL (7.4-10.4); Monocytes # 0.8 10^3/uL (0.2-0.9); Monocytes % 8.4 %; Neutrophils # 6.83 10^3/uL (1.8-7.7); Neutrophils % 76.4 %; Nucleated Red Blood Cells % 0 %; Platelet Count 134 10^3/cmm (130-400); Red Blood Count 2.65 10^6/uL (4.1-5.3); Red Cell Distribution Width 18.1 % (12.1-15.1); White Blood Count 8.9 10^3/uL (4.0-10.0)
[2022-03-10] MEDS: pneumococcal (23 valent) SDV 0.5 mL IM (04:44)
[2022-03-10 04:55] LABS: Calcium 7.5 mg/dL (8.5-10.5)
[2022-03-10 05:00] LABS: Parathyroid Hormone 367.6 pg/mL (15-65)
[2022-03-10 05:02] LABS: Alanine Aminotransferase 34 U/L (0-41); Albumin Level 2.1 g/dL (3.5-5.2); Alkaline Phosphatase 134 IU/L (40-130); Blood Urea Nitrogen 66 mg/dL (8-23); Calcium 7.8 mg/dL (8.5-10.5); Carbon Dioxide 26 mmol/L (22-29); Chloride 95 mmol/L (98-107); Globulin 2.4 g/dL (1.3-4.6); Glomerular Filtration Rate 5.7 mL/min (90-130); Glucose 129 mg/dL (65-115); Magnesium 1.9 mg/dL (1.7-2.3); Osmolality Calculated 303 mOsm/kg (285-295); Phosphorus 6.1 mg/dL (2.5-4.5); Sodium 136 mmol/L (136-145); Thyroid Stimulating Hormone 1.69 uIU/mL (0.27-4.20); Total Bilirubin 0.2 mg/dL (0.15-1.2); Total Protein 4.5 g/dL (6.6-8.7)
[2022-03-10 05:04] LABS: Anion Gap 20.4 (5-19); Aspartate Amino Transferase 30 U/L (0-40); Potassium 5.4 mmol/L (3.5-5.1)
[2022-03-10 05:29] LABS: Iron 24 ug/dL (59-158)
[2022-03-10 05:42] LABS: Ferritin 1689 ng/mL (30-400)
[2022-03-10 05:43] LABS: Percent Saturation 14.2 % (20-50); Total Iron Binding Capacity 168 mcg/dl; Unsaturated Iron Binding 144 ug/dL (112-347)
--- NOTE | 2022-03-10 07:08 | P.PN_ITS ---
Subjective Subjective: still sob, weak, lethargic on bipap. did pd overnight and is negative 1.5l Medications: Reviewed: Yes Medication Review Details: Current Medications Lipase/Protease/Amylase (Hujtcf-Vgsdtagz-Owrquux Capsule) 5 each PO TIDWM [facility] Last Admin: 03/10/22 00:33 Dose: Not Given Lipase/Protease/Amylase (Pocdxr-Sezhmayi-Uasqvxr Capsule) 2 - 3 each PO PRN PRN PRN Reason: WITH SNACK Aspirin (Aspirin 81 Mg Ec Tablet) 81 mg PO BEDTIME [facility] Atorvastatin Calcium (Atorvastatin 40 Mg Tablet) 40 mg PO QPM [facility] Clopidogrel Bisulfate (Clopidogrel 75 Mg Tablet) 75 mg PO DAILY@2100 [facility] Caspofungin 50 mg/ Sodium (Chloride) 250 mls @ 250 mls/hr IV Q24H [facility] Piperacillin Sod/Tazobactam (Sod 3.375 gm/ Sodium Chloride) 50 mls @ 12.5 mls/hr IV Q12H [facility]; Protocol Levothyroxine Sodium (Levothyroxine 150 Mcg Tablet) 150 mcg PO QAM [facility] Last Admin: 03/10/22 05:49 Dose: Not Given Magnesium Oxide (Magnesium Oxide 400 Mg Tablet) 400 mg PO QAM [facility] Last Admin: 03/10/22 05:49 Dose: Not Given Peritoneal Dialysis Solution (Dianeal Low Ca W/2.5% Dex 2,000 Ml Bag) 2,000 ml INTRAPERIT 6XD [facility] Last Admin: 03/10/22 04:48 Dose: 2,000 ml Sertraline HCl (Sertraline 50 Mg Tablet) 75 mg PO QPM [facility] Vitals/I&O/Wt Last Vital Signs Temp 98.5 F 03/10/22 05:43 Pulse 62 03/10/22 06:00 Resp 10 L 03/10/22 05:30 BP 130/54 03/10/22 05:30 Pulse Ox 99 03/10/22 05:30 O2 Del Method 03/09/22 22:04 O2 Flow Rate 3 03/09/22 16:54 FiO2 28 03/10/22 03:29 03/09/22 03/10/22 03/10/22 22:59 06:59 14:59 Intake Total 2555 / 2555 Output Total 2500 / 2500 350 / 2850 Balance -2500 / -2500 2205 / -295 Weight last 48 hrs Weight 89.947 kg Weight 90.718 kg Physical Exam Narrative: sob on bipap vs noted heent - nc/at, eomi, anicteric neck supple lungs dull bases heart reg abd soft, nt, distended, PD catheter ext no edema exam w/ RN- telehealth visit Data : 03/10/22 03:13 03/10/22 03:13 Micro: Microbiology 03/09/22 00:45 Blood Culture - Preliminary Blood SPECIMEN COLLECTED 03/09/22 22:59 Blood Culture - Preliminary Blood SPECIMEN COLLECTED A&P Assessment and plan (1) End stage renal disease: 72 yr old man CAD s/p recent stents, IDDM, ESRD on CCPD for 2.5 yrs. He normally does 10 hrs CCPD w/ two 6 liter bags- usually 1.25% and 2.5 % gluc and daytime icodextran. Pt is here w/ severe sob 1. recent CAD and stents- please check echo and cardiology consult 2. pleural effusions- attempt thoracentesis 3. ESRD- pt is tolerating CAPD- for now- every 4 hrs as want to diurese pt. after thoracentesis- change CAPD to every 6 hrs or let pt do his routiune CCPD -less likely a leak as pt is loosing weight w/ every exchange 4. monitor leukocytosis - on abx-please dose for ESRD on PD 5. Resp acidosis per pulm- on bipap seen and examined w/ rN- telehealth visit informed consent for Telehealth and for dialysis obtained discussed w/ nurse and pts time spent > 25 min Status: Acute Plan see above Attestations Medical Necessity Statement*: esrd, resp acidosis, Q infection, CAD Time Spent in Patient Care: 16 - 35 minutes (>than 50% of time spent in counselling and/or direct pt care on unit) . 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
[2022-03-10] MEDS: lipase-protease-amylase Capsule 5 EACH PO ×3 (08:21→17:28)
[2022-03-10] MEDS: acetaminophen 325 mg Tablet 650 MG PO (08:26)
--- NOTE | 2022-03-10 10:02 | PC.CHAP ---
Pastoral Care Encounter/Spiritual Assessment Type of Contact [] Declined veterinarian helper visit [] Patient/Family/Request visit [] Outpatient visit [] Follow-up visit [] Physician referral [] Code/Alert [x] Routine visit [] Staff referral [] Actively dying [x] Patient sleeping [x] Family support [] [] Out of room [] Palliative care [] [] Receiving care in room [] Pre-surgical visit [] Trauma [] Long length of stay [x] ICU visit [] Other: Relational/Emotional Strength [] Patient feels connected with others/family/visitors/staff [] Distress [] Loneliness/isolation [] Abandonment Spirituality of Patient [] Person of [place] [] Attends Hinduism of their [place] [] Believes in Prayer [] Reads Bible or Shinto materials [] There are Spiritual issues to be addressed Mechanical Project Manager Interventions [x] Prayer [] Active listening [] Non-anxious presence [] Spiritual/emotional support [] Crisis/trauma care [] Spiritual counseling [] Bereavement support [] Provided bereavement packet [] Provided Bible/devotional materials [] Provided toy/stuffed animal, coloring book to patient or family member [] Provided Communion [] Anointing/Darby [] Salvation [x] Completed spiritual assessment [] Other: Impact on Illness or Injury [] Angry [] Fearful [] Anxious [] Often cries [] Exhaustion [] Unable to work [] Unable to attend sabianism [] Unable to walk/stand [] Unable to read [] Unable to drive [] Unable to eat/drink [] Unable to sleep [] Unable to be with family [] Patient intubated [] Other: Summary Time spent with patient
[2022-03-10] MEDS: fentaNYL 50 mcg/mL INJ 2mL 25 MCG IVP (11:22)
--- NOTE | 2022-03-10 11:38 | PC.NURSE ---
Spoke with nephrology, nephrology ordered to drain PD and then do PD in 5 hours at 1630. notified of change. vEbalizes understanding. Pt tolerated thoracentesis well. Given pain med per MD order after procedure. Will monitor.
--- NOTE | 2022-03-10 11:40 | XRR_ITS ---
PROCEDURE INFORMATION: Exam: XR Chest Exam date and time: 03/10/2022 11:59 AM Age: 72 years old Clinical indication: Device placement; Other: Post thoracentisis; Additional info: Post thoracentesis TECHNIQUE: Imaging protocol: Radiologic exam of the chest. Views: 1 view. COMPARISON: CR XR chest 1V portable [id number] 03/09/2022 4:08 PM FINDINGS: Tubes, catheters and devices: Electronic device is present in the right anterior chest. The lead extends in to the supraclavicular soft tissues. Lungs: Low lung volumes are noted. Pleural spaces: Right lower lobe pleural effusion decreased in volume since prior. No pneumothorax. Heart/Mediastinum: Unremarkable. No cardiomegaly. Bones/joints: Unremarkable. Other findings: Comparison to prior examination similar findings seen XR/XR chest 1V portable [id number] IMPRESSION: 1. Right lower lobe pleural effusion. 2. Electronic stimulator right anterior chest. 3. Otherwise negative examination 4. Negative for pneumothorax
[2022-03-10 11:59] LABS: Cyto Order Verification Y
[2022-03-10 12:08] LABS: Body Fluid WBC 3723 /uL; Monocytes # Body Fluid 0.983
[2022-03-10 12:19] LABS: Apprearance, Body Fluid CLOUDY; Color, Body Fluid RED
[2022-03-10 12:36] LABS: LDH Pleural Fluid 492 U/L
--- NOTE | 2022-03-10 15:14 | P.PN_ITS ---
Subjective Subjective: Patient was seen and examined this morning, was complaining of right-sided chest pain, particularly so with inspiration, he was saturating well on nasal cannula, was alert awake oriented, has a decent stable MAP. Medications: Reviewed: Yes Medication Review Details: Current Medications Lipase/Protease/Amylase (Fgxpvs-Dzuhblqb-Xcsaonw Capsule) 5 each PO TIDWM [facility] Last Admin: 03/10/22 00:33 Dose: Not Given Lipase/Protease/Amylase (Yemlnb-Fkknstmq-Hoquuvu Capsule) 2 - 3 each PO PRN PRN PRN Reason: WITH SNACK Aspirin (Aspirin 81 Mg Ec Tablet) 81 mg PO BEDTIME [facility] Atorvastatin Calcium (Atorvastatin 40 Mg Tablet) 40 mg PO QPM [facility] Clopidogrel Bisulfate (Clopidogrel 75 Mg Tablet) 75 mg PO DAILY@2100 [facility] Caspofungin 50 mg/ Sodium (Chloride) 250 mls @ 250 mls/hr IV Q24H [facility] Piperacillin Sod/Tazobactam (Sod 3.375 gm/ Sodium Chloride) 50 mls @ 12.5 mls/hr IV Q12H [facility]; Protocol Levothyroxine Sodium (Levothyroxine 150 Mcg Tablet) 150 mcg PO QAM [facility] Last Admin: 03/10/22 05:49 Dose: Not Given Magnesium Oxide (Magnesium Oxide 400 Mg Tablet) 400 mg PO QAM [facility] Last Admin: 03/10/22 05:49 Dose: Not Given Peritoneal Dialysis Solution (Dianeal Low Ca W/2.5% Dex 2,000 Ml Bag) 2,000 ml INTRAPERIT 6XD [facility] Last Admin: 03/10/22 04:48 Dose: 2,000 ml Sertraline HCl (Sertraline 50 Mg Tablet) 75 mg PO QPM [facility] Vitals/I&O/Wt Last Vital Signs Temp 97.2 F L 03/10/22 08:00 Pulse 73 03/10/22 14:00 Resp 16 03/10/22 12:00 BP 148/80 03/10/22 12:30 Pulse Ox 99 03/10/22 12:30 O2 Del Method 03/09/22 22:04 O2 Flow Rate 3 03/09/22 16:54 FiO2 28 03/10/22 12:00 03/10/22 03/10/22 03/10/22 06:59 14:59 22:59 Intake Total 2555 / 2555 970 / 970 Output Total 350 / 2850 600 / 600 Balance 2205 / -295 370 / 370 Weight last 48 hrs Weight 89.947 kg Weight 90.718 kg Physical Exam Const: COMMON NORMALS: patient oriented x3 HENMT: COMMON NORMALS: normocephalic, atraumatic and hearing grossly normal bilaterally HEAD & SCALP: normocephalic and atraumatic Cardio: COMMON NORMALS: regular rate, regular rhythm, S1 normal heart sound present, S2 normal heart sound present, No gallops present (Cardio), No murmurs present (Cardio), No rub (Cardio) and Peripheral pulses 2+ throughout RATE: regular rate RHYTHM: regular rhythm HEART SOUNDS: S1 normal heart sound present and S2 normal heart sound present PERIPHERAL PULSES: Peripheral pulses 2+ throughout GI: AUSCULTATION: Yes normoactive bowel sounds RECTAL EXAM: Yes deferred OTHER: Distended abdomen with fluid Thrills. Extremity: COMMON NORMALS: no clubbing, cyanosis or edema and no pedal edema Neuro: COMMON NORMALS: patient oriented x3 Data : 03/10/22 03:13 03/10/22 03:13 Micro: Microbiology 03/09/22 00:45 Blood Culture - Preliminary Blood SPECIMEN COLLECTED 03/09/22 22:59 Blood Culture - Preliminary Blood SPECIMEN COLLECTED A&P Assessment and plan (1) Pleural effusion: Status: Acute (2) Hypercapnic respiratory failure: Status: Acute (3) Bilateral wheezing: Status: Acute (4) Pneumonia: Status: Acute (5) End stage renal disease: Status: Acute (6) Acute hypokalemia: Status: Acute (7) Hypertension: Status: Acute Qualifiers: Hypertension type: essential hypertension Qualified Code(s): I10 - Essential (primary) hypertension (8) Pancreatitis: Status: Acute (9) Stage 5 chronic kidney disease: Status: Acute (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 (11) Peritoneal dialysis catheter in place: Status: Acute (12) Hyperlipidemia: Status: Acute Qualifiers: Hyperlipidemia type: unspecified Qualified Code(s): E78.5 - Hyperlipidemia, unspecified (13) Diabetes: Status: Acute Qualifiers: Chronic kidney disease stage: on chronic dialysis Diabetes mellitus complication detail: with chronic kidney disease Diabetes mellitus complication status: with kidney complications Diabetes mellitus senior care insulin use: with senior care use Diabetes mellitus type: type 2 Qualified Code(s): E11.22 - Type 2 diabetes mellitus with diabetic chronic kidney disease; N18.6 - End stage renal disease; Z79.4 - jail (current) use of insulin; Z99.2 - Dependence on renal dialysis (14) Pulmonary nodule: Status: Acute Plan #Symptomatic large right-sided pleural effusion #Sepsis secondary to pneumonia rule out other sources #Acute metabolic encephalopathy likely secondary to sepsis, hypercapnia #ESRD on peritoneal dialysis #Hypothyroidism #CAD status post PCI 2019 DESx1, 2021 DESx3 (2 angiograms in recent 3 weeks) #Chronically elevated troponin #HTN #DM #Anemia of renal disease #?Pancreatic atrophy with multiple punctate benign-appearing parenchymal calcifications. Plan: CT head without contrast: No acute intracranial abnormality. CT angio chest abdomen pelvis: No pulmonary embolism, large right-sided pleural effusion, Right greater than left dependent atelectasis versus infiltrate.. Large amount of abdominal ascites. Procalcitonin 1.88, lactic acid:1 , Blood culture Urine culture Anemia panel: Monitor H&H Follow-up pleural fluid analysis Peritoneal fluid analysis -S/p right-sided thoracentesis with removal of 500 cc -Currently on broad-spectrum antibiotics. -Nephrology and pulmonary on board. Continue aspirin, statin, Plavix, sertraline, beta-catie -Continue levothyroxine -LDSSI, Monitor FSG Full Code DVT PPX: Heparin subc Attestations Medical Necessity Statement*: Patient is to be in hospital for management of symptomatic right-sided pleural effusion. Time Spent in Patient Care: Greater than 35 minutes (>than 50% of time spent in counselling and/or direct pt care on unit) . Critical Care Time: The high probability of a clinically significant, sudden or life threatening deterioration of the patient's [] system(s) required my full and direct attention, intervention and personal management. The critical care time is as shown. This time is in addition to time spent performing any reported procedures but includes the following: [x] Data and vital sign review and interpretation [x] Patient assessment, examination and intervention [x] Documentation [x] Medication orders and management Critical Care Time (min): 30 Coding Level of Care Code Acute Build And Release Manager for [facility] Fwd Exam Detailed Diagnoses Pleural effusion J90 Hypercapnic respiratory failure J96.92 Bilateral wheezing R06.2 Pneumonia J18.9 End stage renal disease N18.6 Acute hypokalemia E87.6 Hypertension I10 Hypertension type: essential hypertension Pancreatitis K85.90 Stage 5 chronic kidney disease N18.5 Parkinsonian tremor G20 Peritoneal dialysis catheter in place Z99.2 Hyperlipidemia E78.5 Hyperlipidemia type: unspecified Diabetes E11.22; N18.6; Z79.4; Z99.2 Chronic kidney disease stage: on chronic dialysis Diabetes mellitus complication detail: with chronic kidney disease Diabetes mellitus complication status: with kidney complications Diabetes mellitus senior care insulin use: with senior care use Diabetes mellitus type: type 2 Pulmonary nodule R91.1
--- NOTE | 2022-03-10 15:53 | PM.ACPR ---
Procedure/Consent Time out: Time Out Performed: Yes Consent: Consent for Procedure: Consent obtained from patient Procedure Narrative: Name of the procedure: Right-sided thoracentesis under ultrasound guidance Indication: Suspicion for pleural space infection Anesthetics: Local anesthesia with 1% lidocaine. A total of 10 mL was used. IV pain medication: None. Description of the procedure: The procedure was explained to the patient in detail including the risks and a consent was obtained. The right hemithorax was scanned with ultrasound to find a safe fluid pocket. Moderate amount of loculated pleural fluid with fibrinous stranding was noted. Following identification of the fluid pocket the site was marked. The site was cleaned using sterile technique. Lidocaine 1% was injected into the skin and the subcutaneous tissue. Subsequently, the periosteum in the parietal pleural was also anesthetized using lidocaine. The pleural space was entered in the posterior axillary line in the right seventh intercostal space. Serosanguineous fluid was aspirated. About 500 cc of fluid was aspirated. Sample: The pleural fluid was sent for cell count and differential, pH, protein, LDH, albumin, Gram stain and culture, fungal stain and culture, AFB stain and culture and cytology. Postprocedure chest x-ray did not show any pneumothorax. Acute Procedures Epistaxis Control: Time out performed: Yes
--- NOTE | 2022-03-10 15:55 | P.CONIM_ITS ---
Providers/Reason For Consult Consulting Physician/Specialty*: Pulmonary critical care medicine Reason for Consult*: Right-sided pleural effusion in the setting of respir atory failure Requesting Physician: Dr. Quesada Attending Physician: Suleman Hemphill MD Primary Care Provider: Irene Jones History of Present Illness History of Present Illness Anshu Hurt is a 72 year old male with a past medical history of end-stage renal disease on CAPD for nearly 2-1/2 years, coronary artery disease with recent stent placement in February 2022 with 2 drug-eluting stent, history of Parkinson's disease with deep brain stimulator, hypothyroidism, hypertension, hyperlipidemia, type 2 diabetes mellitus who presented to the hospital yesterday with altered mental status. A venous blood gas revealed a pH of 7.24, PCO2 of 69 and the patient was put on BiPAP. This is likely consistent with chronic hypercapnic respiratory failure. However, recent blood gas in early February did not reveal any evidence of chronic hypercapnia. He had mild leukocytosis and hyperkalemia. No significant evidence of acidosis. The lactic acid was normal. The patient tells me that he has not been feeling himself since January. The patient went to [place] for about a week. After returning from their the patient complained of worsening shortness of breath. It appears that over the past few weeks the patient was also treated with antibiotic for an episode of bronchitis. I have reviewed the patient's recent radiologic studies. The patient had a CT scan of the chest in early February. The CT scan on February 18 revealed bilateral pleural effusion with right upper lobe infiltrate. The patient had received the cardiac stents following that. Apparently, the patient had a chest x-ray as outpatient and was found to have a right-sided pleural effusion and the patient was given oxygen and sent home. This is from chart review. When the patient presented to the hospital yesterday, initially the patient underwent a chest x-ray. The chest x-ray showed loculated right-sided pleural effusion. There is also minimal left-sided pleural effusion. There was mild mediastinal shifting to the right. He then underwent CT chest abdomen and pelvis with contrast. The CT chest revealed large right-sided pleural effusion. There was evidence of loculation and pleural thickening. An echocardiogram performed last night revealed an ejection fraction of 45 to 50%. The patient has left ventricular hypertrophy. Mild septal hypokinesis. Surprisingly, normal diastolic function. There was no pericardial effusion or any significant valvular heart disease. I had seen and examined the patient this morning. His condition had improved significantly overnight. Last night the patient used BiPAP. This morning the patient was awake alert and oriented and not requiring any noninvasive positive ventilatory support. I had performed a bedside ultrasound. The patient had evidence of loculated pleural effusion with large fibrinous stranding. A bedside thoracentesis revealed lymphocyte predominant exudative pleural effusion consistent with lung entrapment. There is no evidence of leakage of the peritoneal dialysate into the pleural space. His hemodynamics have been stable. He has been broadly covered with antibiotic antifungal. Review of Systems Narrative: General: No fevers chills or night sweats Skin: No rash HEENT: No nasal congestion, rhinitis, sinusitis Neck: There is no neck swelling Respiratory: The patient denies any cough, sputum production, reports occasional wheezing and exertional shortness of breath Cardiovascular: No chest pain,orthopnea or paroxysmal nocturnal dyspnea Gastrointestinal: No abdominal pain, nausea, vomiting Musculoskeletal: No joint pain or swelling Neurological: Patient is awake alert and oriented x3, no paralysis, gross motor function is normal. Psychiatric: No anxiety or depression. Medications/Allergies Home Medications Medication Instructions Recorded Confirmed Last Taken Type insulin aspart U-100 100 unit/mL See Rx Instructions .Route .COMPLEX 09/05/19 03/10/22 03/09/22 History (3 mL) subcutaneous pen (Novolog Flexpen U-100 Insulin aspart) omeprazole 20 mg capsule,delayed 20 mg PO BID 09/05/19 03/10/22 03/09/22 History release potassium chloride 20 mEq 20 meq PO QAM 09/05/19 03/10/22 03/09/22 History tablet,extended release insulin glargine 100 unit/mL (3 See Rx Instructions .Route .COMPLEX 10/24/20 03/10/22 03/09/22 History mL) subcutaneous pen (Basaglar KwikPen U-100 Insulin) magnesium oxide 400 mg (241.3 mg 400 mg PO QAM 10/24/20 03/10/22 03/09/22 History magnesium) tablet (MagOx) albuterol sulfate 90 mcg/actuation 2 inh inhalation Q6H PRN shortness 02/17/22 03/10/22 03/09/22 Rx aerosol inhaler of breath or wheezing #8 grams calcium acetate(phosphat bind) 667 See Rx Instructions .Route .COMPLEX 02/18/22 03/10/22 03/09/22 History mg capsule cholecalciferol (vitamin D3) 1,250 50,000 unit PO Q7D 02/18/22 03/10/22 03/04/22 History mcg (50,000 unit) capsule levothyroxine 150 mcg tablet 150 mcg PO QAM 02/18/22 03/10/22 03/09/22 History (Euthyrox) usgqka-pnsmemtb-kqwjunm See Rx Instructions .Route .COMPLEX 02/18/22 03/10/22 03/09/22 History 12,000-38,000-60,000 unit capsule,delayed rel (Creon) pregabalin 150 mg capsule (Lyrica) 150 mg PO BEDTIME 02/18/22 03/10/22 03/08/22 History sertraline 50 mg tablet 75 mg PO QPM 02/18/22 03/10/22 03/08/22 History amoxicillin 875 mg-potassium 1 tab PO BID #10 tabs 02/21/22 03/10/22 03/09/22 Rx clavulanate 125 mg tablet aspirin 81 mg tablet,delayed 81 mg PO BEDTIME #120 tabs 02/21/22 03/10/22 03/09/22 Rx release atorvastatin 40 mg tablet 40 mg PO QPM #90 tabs 02/21/22 03/10/22 03/08/22 Rx clopidogrel 75 mg tablet 75 mg PO DAILY@2100 #120 tabs 02/21/22 03/10/22 03/09/22 Rx metoprolol tartrate 25 mg tablet 12.5 mg PO BID 03/09/22 03/10/22 03/09/22 History nitroglycerin 0.4 mg sublingual 0.4 mg sublingual Q5M PRN Chest 03/09/22 03/10/22 Unknown History tablet (Nitrostat) Pain temazepam 15 mg capsule 15 mg PO DAILY 03/09/22 03/10/22 03/08/22 History Allergies Allergy/AdvReac Type Severity Reaction Status Date / Time CARBIDOPA-LEVODOPA Allergy Unknown Uncoded 03/09/22 16:39 Current Medications Generic Name Dose Route Start Last Admin Trade Name Freq PRN Reason Stop Dose Admin Acetaminophen 650 mg 03/10/22 08:13 03/10/22 08:26 Acetaminophen 325 Mg Tablet PO 650 mg Q6H PRN Administration MILD PAIN Lipase/Protease/Amylase 5 each 03/09/22 21:15 03/10/22 13:10 Oqahsh-Erewmibk-Bttbeoo Capsule PO 5 each TIDWM SHAMAR Administration Hydromorphone HCl 2 mg 03/10/22 11:07 03/10/22 15:14 Hydromorphone 4 Mg Tablet PO 2 mg Q6H PRN Administration PAIN Levothyroxine Sodium 150 mcg 03/10/22 06:00 03/10/22 05:49 Levothyroxine 150 Mcg Tablet PO Not Given QAM SHAMAR Magnesium Oxide 400 mg 03/10/22 06:00 03/10/22 05:49 Magnesium Oxide 400 Mg Tablet PO Not Given QAM [facility] Peritoneal Dialysis Solution 2,000 ml 03/10/22 08:00 03/10/22 13:09 Dianeal Low Ca W/2.5% Dex 2,000 Ml Bag INTRAPERIT Not Given 6XD SHAMAR PFSH Acute PFSH: Medical History Depression Diabetes ESRD (end stage renal disease) Essential tremor Gastroparesis Gout Hyperlipidemia Hypertension Hypothyroidism (acquired) Pancreatitis takes chronic pancrease Parkinsonian tremor Peritoneal dialysis catheter in place Stage 5 chronic kidney disease Tremor Vitiligo Weakness Surgical History History of appendectomy History of carpal tunnel release left wrist 1975 History of cholecystectomy Family History Other CAD (coronary artery disease) Cancer Diabetes Hypertension Denies family history of Stroke Social History Smoking and tobacco status: former smoker Quit status (tobacco): has quit using tobacco Year quit tobacco: 1992 Alcohol intake: never Household members: spouse Marital status: Vitals/I&O/Wt Last Vital Signs Temp 97.2 F L 03/10/22 08:00 Pulse 73 03/10/22 14:00 Resp 23 H 03/10/22 15:14 BP 148/80 03/10/22 12:30 Pulse Ox 99 03/10/22 12:30 O2 Del Method 03/09/22 22:04 O2 Flow Rate 3 03/09/22 16:54 FiO2 28 03/10/22 12:00 03/10/22 03/10/22 03/10/22 06:59 14:59 22:59 Intake Total 2555 / 2555 970 / 970 Output Total 350 / 2850 600 / 600 Balance 2205 / -295 370 / 370 Weight last 48 hrs Weight 198 lb 4.8 oz Weight 200 lb Physical Exam Narrative: General: Patient is awake alert and oriented, in no distress. Neck: No JVD Respiratory: Auscultation: Reduced breath sound in the right chest laterally and posteriorly no wheezing or rhonchi Cardiovascular: Regular rate and rhythm, S1-S2 present, no murmur, no peripheral edema. Abdomen: Soft, nontender, nondistended, positive bowel sound Musculoskeletal: No obvious joint deformity Skin: Areas of amelanotic patches throughout the body Neuro: Mental status is normal, no gross cranial nerve deficit, normal motor and coordination. Data : 03/10/22 03:13 03/10/22 03:13 Micro: Microbiology 03/09/22 00:45 Blood Culture - Preliminary Blood SPECIMEN COLLECTED 03/09/22 22:59 Blood Culture - Preliminary Blood SPECIMEN COLLECTED Other data: I have reviewed the patient's laboratory, microbiologic and radiologic data. Please see the HPI for detail A&P Assessment and plan (1) Lung entrapment: This is a 72-year-old gentleman with a large right-sided pleural effusion. The patient has evidence of inflammation on bedside ultrasound. The pleural fluid analysis is consistent with lymphocyte predominant exudative pleural effusion. The constellation of findings are consistent with lung entrapment. The patient has had bilateral pleural effusion in February 2022. He likely suffered from an episode of pneumonia which had eventually seeded the pleural space resulting in lung entrapment. At this point, insertion of chest tube is not going to fix the problem. The patient is going to have the pleural effusion back. The patient will likely need decortication. However, the patient is on dual antiplatelet therapy and he received his drug-eluting stents less than a month ago. I would recommend waiting for at least 3 months and preferably 6 months before any decortication is attempted. There is no evidence of active pleural space infection at this time. I would also recommend that the procedure be performed via VATS. There is no evidence of leakage of the peritoneal dialysate into the pleural space. The patient is currently on broad-spectrum antibiotic. We should be able to de- escalate depending on her culture data. He is also on antifungal with suspicion for peritonitis. If the fungal cultures are negative this can be discontinued. Status: Acute (2) Coronary artery disease: The patient has coronary artery disease with recent drug-eluting stent placement. He also has left ventricular hypertrophy, mild reduction in ejection fraction. The cardiology team is going to be following the patient as outpatient. Status: Acute (3) Pneumonia: The patient is covered with broad-spectrum antibiotic. We will follow-up the culture data. Status: Acute (4) ESRD (end stage renal disease): The patient is under the care of the nephrology team. He is tolerating the peritoneal dialysis very well. Status: Acute Coding Level of Care Code Acute Customer Marketing Intern for [facility] Diagnoses Lung entrapment J98.4 Coronary artery disease I25.10 Pneumonia J18.9 ESRD (end stage renal disease) N18.6
[2022-03-10] MEDS: atorvastatin 40 mg Tablet PO (17:28)
[2022-03-10] MEDS: pantoprazole DR 40 mg Tablet PO (17:29)
[2022-03-10] MEDS: metoprolol tartrate 25 mg Tablet 12.5 MG PO (17:29)
[2022-03-10] MEDS: sertraline 50 mg Tablet 75 MG PO (17:29)
[2022-03-10 17:56] LABS: Urine Random Sodium 33 mmol/L
[2022-03-10] MEDS: clopidogrel 75 mg Tablet PO (21:09)
[2022-03-10] MEDS: aspirin 81 mg EC Tablet PO (21:09)
--- NOTE | 2022-03-10 21:17 | PC.NURSE ---
Pt has left lower quadrant peritoneal dialysis site. Dressing dry and intact.
[2022-03-10] MEDS: neomycin-poly-bacitracin oint 28 gm 1 APPLIC TOPICAL (21:27)
--- NOTE | 2022-03-10 21:56 | PC.NURSE ---
Peritoneal dialysis in progress
[2022-03-11] VITALS (44 sets, daily range): BP systolic 95–154; BP diastolic 52–96; PULSE 64–78; RESP 9–18; TEMP 36.4–37.1; O2SAT 96–100
--- NOTE | 2022-03-11 00:12 | PC.NURSE ---
Pt refuses Bipap, stating, I feel like I'm suffocating with this on.
--- NOTE | 2022-03-11 01:10 | PC.NURSE ---
Pt refuses to use urinal. Pt very unsteady on his feet.
[2022-03-11] MEDS: Dianeal low Ca w/2.5% dex 2,000 mL Bag 2000 ML INTRAPERIT ×3 (02:32→09:59)
--- NOTE | 2022-03-11 02:33 | PC.NURSE ---
Peritoneal dialysis being set up by pt's .
[2022-03-11 04:10] LABS: Basophils % 0.1 %; Eosinophils # 0.4 10^3/uL (0.0-0.8); Eosinophils % 4.5 %; Hematocrit 25.3 % (42.0-52.0); Hemoglobin 7.6 g/dL (11.7-16.6); Lymphocytes # 0.9 10^3/uL (0.8-4.8); Lymphocytes % 11.4 %; Mean Corpuscular Hemoglobin 29.8 pg (28.0-34.0); Mean Corpuscular Volume 99.2 fl (80-94); Monocytes # 0.8 10^3/uL (0.2-0.9); Monocytes % 9.6 %; Neutrophils # 5.69 10^3/uL (1.8-7.7); Neutrophils % 73.1 %; Nucleated Red Blood Cells % 0 %; Platelet Count 152 10^3/cmm (130-400); Red Blood Count 2.55 10^6/uL (4.1-5.3); Red Cell Distribution Width 18.1 % (12.1-15.1); White Blood Count 7.8 10^3/uL (4.0-10.0)
--- NOTE | 2022-03-11 04:25 | PC.NURSE ---
Pt resting quietly in bed with eyes closed. Pt snoring softly. Patient's is sleeping at bedside.
[2022-03-11 04:54] LABS: Alanine Aminotransferase 29 U/L (0-41); Albumin Level 2.3 g/dL (3.5-5.2); Alkaline Phosphatase 152 IU/L (40-130); Aspartate Amino Transferase 21 U/L (0-40); Blood Urea Nitrogen 62 mg/dL (8-23); Calcium 7.8 mg/dL (8.5-10.5); Carbon Dioxide 27 mmol/L (22-29); Chloride 93 mmol/L (98-107); Globulin 2.5 g/dL (1.3-4.6); Glomerular Filtration Rate 5.6 mL/min (90-130); Glucose 371 mg/dL (65-115); Osmolality Calculated 305 mOsm/kg (285-295); Phosphorus 6.4 mg/dL (2.5-4.5); Sodium 131 mmol/L (136-145); Total Bilirubin 0.2 mg/dL (0.15-1.2); Total Protein 4.8 g/dL (6.6-8.7)
--- NOTE | 2022-03-11 05:05 | PC.NURSE ---
Pt very soa with audible wheezing with ambulation. Pt recovers within 2 minutes.
--- NOTE | 2022-03-11 05:06 | PC.NURSE ---
Bed alarm set off when attempting to get patient out of bed to go to restroom. Bed alarm re-set once pt returned to bed.
[2022-03-11] MEDS: magnesium oxide 400 mg tablet PO (06:00)
[2022-03-11] MEDS: levothyroxine 150 mcg Tablet PO (06:00)
--- NOTE | 2022-03-11 07:13 | P.PN_ITS ---
Subjective Subjective: feels better. still sob, weak and slater, has edema. doing well w/ pd Medications: Reviewed: Yes Medication Review Details: Current Medications Acetaminophen (Acetaminophen 325 Mg Tablet) 650 mg PO Q6H PRN PRN Reason: MILD PAIN Last Admin: 03/10/22 08:26 Dose: 650 mg Lipase/Protease/Amylase (Fgxmvl-Zutprelm-Snpksjg Capsule) 5 each PO TIDWM [facility] Last Admin: 03/10/22 17:28 Dose: 5 each Lipase/Protease/Amylase (Ymcmgi-Rkbzebqe-Mtcfwlx Capsule) 2 - 3 each PO PRN PRN PRN Reason: WITH SNACK Aspirin (Aspirin 81 Mg Ec Tablet) 81 mg PO BEDTIME [facility] Last Admin: 03/10/22 21:09 Dose: 81 mg Atorvastatin Calcium (Atorvastatin 40 Mg Tablet) 40 mg PO QPM [facility] Last Admin: 03/10/22 17:28 Dose: 40 mg Clopidogrel Bisulfate (Clopidogrel 75 Mg Tablet) 75 mg PO DAILY@2100 [facility] Last Admin: 03/10/22 21:09 Dose: 75 mg Hydromorphone HCl (Hydromorphone 4 Mg Tablet) 2 mg PO Q6H PRN PRN Reason: PAIN Last Admin: 03/10/22 15:14 Dose: 2 mg Vancomycin HCl 1,000 mg/ (Sodium Chloride) 250 mls @ 250 mls/hr IV ONCE ONE Stop: 03/13/22 16:59 Ceftriaxone Sodium 2,000 mg/ (Dextrose) 50 mls @ 100 mls/hr IV Q24H [facility]; Protocol Last Admin: 03/11/22 06:00 Dose: 100 mls/hr Levothyroxine Sodium (Levothyroxine 150 Mcg Tablet) [facility] [place] [facility] Admin: 03/11/22 06:00 Dose: 150 mcg Magnesium Oxide (Magnesium Oxide 400 Mg Tablet) 400 mg PO QAM [facility] Last Admin: 03/11/22 06:00 Dose: 400 mg Metoprolol Tartrate (Metoprolol Tartrate 25 Mg Tablet) 12.5 mg PO BID [facility] Last Admin: 03/10/22 17:29 Dose: 12.5 mg Neomycin/Polymyxin/Bacitracin (Fbvtwkut-Hmxe-Zsdqbormbl Oint 28 Gm) 1 applic TOPICAL BID [facility] Last Admin: 03/10/22 21:27 Dose: 1 applic Nitroglycerin (Nitroglycerin 0.4 Mg Sublingual Tablet) 0.4 mg SUBLINGUAL Q5M PRN PRN Reason: Chest Pain Pantoprazole Sodium (Pantoprazole Dr 40 Mg Tablet) 40 mg PO BID [facility] Last Admin: 03/10/22 17:29 Dose: 40 mg Peritoneal Dialysis Solution (Dianeal Low Ca W/2.5% Dex 2,000 Ml Bag) 2,000 ml INTRAPERIT 6XD [facility] Last Admin: 03/11/22 06:07 Dose: 2,000 ml Sertraline HCl (Sertraline 50 Mg Tablet) 75 mg PO QPM [facility] Last Admin: 03/10/22 17:29 Dose: 75 mg Temazepam (Temazepam 15 Mg Capsule) 15 mg PO DAILY [facility] Vitals/I&O/Wt Last Vital Signs Temp 97.6 F 03/11/22 04:45 Pulse 68 03/11/22 06:00 Resp 13 03/11/22 06:00 BP 152/83 03/11/22 06:00 Pulse Ox 99 03/11/22 06:00 O2 Del Method 03/11/22 06:00 O2 Flow Rate 4 03/11/22 06:00 FiO2 28 03/11/22 00:00 03/10/22 03/11/22 03/11/22 22:59 06:59 14:59 Intake Total 2530 / 3500 2120 / 5620 2000 / 2000 Output Total 3150 / 3750 2500 / 6250 2500 / 2500 Balance -620 / -250 -380 / -630 -500 / -500 Weight last 48 hrs Weight 89.947 kg Weight 90.718 kg Physical Exam Narrative: more comfortable, on nc02- follows commands vs noted heent - nc/at, eomi, anicteric neck supple lungs dull bases and crackle s heart reg abd soft, nt, distended, PD catheter ext no edema exam w/ RN- telehealth visit Data : 03/11/22 03:45 03/11/22 03:45 Micro: Microbiology 03/09/22 00:45 Blood Culture - Preliminary Blood NEGATIVE TO DATE 03/09/22 22:59 Blood Culture - Preliminary Blood NEGATIVE TO DATE 03/10/22 10:59 Gram Stain - Final Pleural Fluid A&P Assessment and plan (1) End stage renal disease: 72 yr old man CAD s/p recent stents, IDDM, ESRD on CCPD for 2.5 yrs. He normally does 10 hrs CCPD w/ two 6 liter bags- usually 1.25% and 2.5 % gluc and daytime icodextran. Pt is here w/ severe sob 1. recent CAD and stents- please check echo and cardiology consult 2. pleural effusions- entraped lung. appreciate pulm input 3. ESRD- pt is tolerating CAPD- for now-we will perform 2 CAPD exchanges during the day- then change to CCPD every 4 hrs -PD tonight: 12L 2.5%, tomorrow to dwell with icodextrin during day. performing PD cycler set up and disconnect. Antibiotic ointment to exit site.? 4. monitor leukocytosis - improved -on abx-please dose for ESRD on PD 5. anemia- YOSSI. iron studies w/ high ferritin -may benefit from 1 u prbc tx 6. kari pompa seen and examined w/ rN- telehealth visit informed consent for Telehealth and for dialysis obtained discussed w/ nurse and pts time spent > 25 min Status: Acute Plan see above Attestations Medical Necessity Statement*: entraped lung, esrd, sob, anemia Time Spent in Patient Care: 16 - 35 minutes (>than 50% of time spent in counselling and/or direct pt care on unit) . 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
[2022-03-11] MEDS: epoetin alfa 10,000 unit/mL INJ 10000 UNIT SUBCUT (08:32)
[2022-03-11] MEDS: lipase-protease-amylase Capsule 5 EACH PO ×3 (08:36→18:02)
[2022-03-11] MEDS: pantoprazole DR 40 mg Tablet PO ×2 (09:35→17:59)
[2022-03-11] MEDS: metoprolol tartrate 25 mg Tablet 12.5 MG PO ×2 (09:35→17:59)
[2022-03-11] MEDS: sevelamer 800 mg Tablet PO ×3 (09:38→20:31)
[2022-03-11] MEDS: neomycin-poly-bacitracin oint 28 gm 1 APPLIC TOPICAL (09:40)
--- NOTE | 2022-03-11 10:14 | PC.CHAP ---
Pastoral Care Encounter/Spiritual Assessment Type of Contact [] Declined customs inspector visit [] Patient/Family/Request visit [] Outpatient visit [] Follow-up visit [] Physician referral [] Code/Alert [x] Routine visit [] Staff referral [] Actively dying [x] Patient sleeping [] Family support [] [] Out of room [] Palliative care [] [] Receiving care in room [] Pre-surgical visit [] Trauma [] Long length of stay [x] ICU visit [] Other: Relational/Emotional Strength [] Patient feels connected with others/family/visitors/staff [] Distress [] Loneliness/isolation [] Abandonment Spirituality of Patient [] Person of Chely [] Attends Jew of their Chely [] Believes in Prayer [] Reads Bible or Druze materials [] There are Spiritual issues to be addressed Business Writer Interventions [x] Prayer [] Active listening [] Non-anxious presence [] Spiritual/emotional support [] Crisis/trauma care [] Spiritual counseling [] Bereavement support [] Provided bereavement packet [] Provided Bible/devotional materials [] Provided toy/stuffed animal, coloring book to patient or family member [] Provided Communion [] Anointing/Christmas [] Salvation [x] Completed spiritual assessment [] Other: Impact on Illness or Injury [] Angry [] Fearful [] Anxious [] Often cries [] Exhaustion [] Unable to work [] Unable to attend denominational [] Unable to walk/stand [] Unable to read [] Unable to drive [] Unable to eat/drink [] Unable to sleep [] Unable to be with family [] Patient intubated [] Other: Summary Time spent with patient
--- NOTE | 2022-03-11 15:11 | PC.NURSE ---
Patient is sleeping in room. HR 65 with normal respirations. Family left to get dialysis machine for tonight.
[2022-03-11 16:09] LABS: Glucose Point of Care 129 mg/dL (70-110)
--- NOTE | 2022-03-11 17:32 | P.PN_ITS ---
Subjective Subjective: Patient was seen and examined this morning, resting comfortably, did complain of occasional chest pain with inspiration. Medications: Reviewed: Yes Medication Review Details: Current Medications Lipase/Protease/Amylase (Ymrryi-Xmvdhtdz-Qjclrih Capsule) 5 each PO TIDWM [facility] Last Admin: 03/10/22 00:33 Dose: Not Given Lipase/Protease/Amylase (Aqnmly-Gvkpknej-Sllibux Capsule) 2 - 3 each PO PRN PRN PRN Reason: WITH SNACK Aspirin (Aspirin 81 Mg Ec Tablet) 81 mg PO BEDTIME [facility] Atorvastatin Calcium (Atorvastatin 40 Mg Tablet) 40 mg PO QPM [facility] Clopidogrel Bisulfate (Clopidogrel 75 Mg Tablet) 75 mg PO DAILY@2100 [facility] Caspofungin 50 mg/ Sodium (Chloride) 250 mls @ 250 mls/hr IV Q24H [facility] Piperacillin Sod/Tazobactam (Sod 3.375 gm/ Sodium Chloride) 50 mls @ 12.5 mls/hr IV Q12H [facility]; Protocol Levothyroxine Sodium (Levothyroxine 150 Mcg Tablet) 150 mcg PO QAM [facility] Last Admin: 03/10/22 05:49 Dose: Not Given Magnesium Oxide (Magnesium Oxide 400 Mg Tablet) 400 mg PO QAM [facility] Last Admin: 03/10/22 05:49 Dose: Not Given Peritoneal Dialysis Solution (Dianeal Low Ca W/2.5% Dex 2,000 Ml Bag) 2,000 ml INTRAPERIT 6XD [facility] Last Admin: 03/10/22 04:48 Dose: 2,000 ml Sertraline HCl (Sertraline 50 Mg Tablet) 75 mg PO QPM [facility] Vitals/I&O/Wt Last Vital Signs Temp 98.4 F 03/11/22 08:12 Pulse 65 03/11/22 16:00 Resp 13 03/11/22 16:00 BP 134/65 03/11/22 16:00 Pulse Ox 99 03/11/22 16:00 O2 Del Method 03/11/22 08:12 O2 Flow Rate 4 03/11/22 08:12 FiO2 28 03/11/22 00:00 03/11/22 03/11/22 03/11/22 06:59 14:59 22:59 Intake Total 2120 / 5620 4286 / 4286 Output Total 2500 / 6250 7300 / 7300 Balance -380 / -630 -3014 / -3014 Weight last 48 hrs Weight 89.947 kg Physical Exam Const: COMMON NORMALS: patient oriented x3 HENMT: COMMON NORMALS: normocephalic, atraumatic and hearing grossly normal bilaterally HEAD & SCALP: normocephalic and atraumatic Resp: OTHER: Occasional wheezing, diminished entry to his right lung field predominantly at bases. Cardio: COMMON NORMALS: regular rate, regular rhythm, S1 normal heart sound present, S2 normal heart sound present, No gallops present (Cardio), No murmurs present (Cardio), No rub (Cardio) and Peripheral pulses 2+ throughout RATE: regular rate RHYTHM: regular rhythm HEART SOUNDS: S1 normal heart sound present and S2 normal heart sound present PERIPHERAL PULSES: Peripheral pulses 2+ throughout GI: AUSCULTATION: Yes normoactive bowel sounds RECTAL EXAM: Yes deferred OTHER: Distended abdomen with fluid Thrills. Extremity: COMMON NORMALS: no clubbing, cyanosis or edema and no pedal edema Neuro: COMMON NORMALS: patient oriented x3 Data : 03/11/22 03:45 03/11/22 03:45 Micro: Microbiology 03/10/22 05:45 Body Fluid Culture - Preliminary Ankle - Peritoneal 03/10/22 10:59 Gram Stain - Final Pleural Fluid Body Fluid Culture - Preliminary 03/09/22 00:45 Blood Culture - Preliminary Blood NEGATIVE TO DATE 03/09/22 22:59 Blood Culture - Preliminary Blood NEGATIVE TO DATE A&P Assessment and plan (1) Pleural effusion: Status: Acute (2) Hypercapnic respiratory failure: Status: Acute (3) Bilateral wheezing: Status: Acute (4) Pneumonia: Status: Acute (5) End stage renal disease: Status: Acute (6) Acute hypokalemia: Status: Acute (7) Hypertension: Status: Acute Qualifiers: Hypertension type: essential hypertension Qualified Code(s): I10 - Essential (primary) hypertension (8) Pancreatitis: Status: Acute (9) Stage 5 chronic kidney disease: Status: Acute (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 (11) Peritoneal dialysis catheter in place: Status: Acute (12) Hyperlipidemia: Status: Acute Qualifiers: Hyperlipidemia type: unspecified Qualified Code(s): E78.5 - Hyperlipidemia, unspecified (13) Diabetes: Status: Acute Qualifiers: Diabetes mellitus type: type 2 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: with regional intermodal truck driver use Diabetes mellitus complication status: with kidney complications Diabetes mellitus complication detail: with chronic kidney disease Chronic kidney disease stage: on chronic dialysis Qualified Code(s): E11.22 - Type 2 diabetes mellitus with diabetic chronic kidney disease; N18.6 - End stage renal disease; Z79.4 - long-term (current) use of insulin; Z99.2 - Dependence on renal dialysis (14) Pulmonary nodule: Status: Acute Plan #Symptomatic large right-sided pleural effusion #Sepsis secondary to pneumonia rule out other sources #Acute metabolic encephalopathy likely secondary to sepsis, hypercapnia #ESRD on peritoneal dialysis #Hypothyroidism #CAD status post PCI 2019 DESx1, 2021 DESx3 (2 angiograms in recent 3 weeks) #Chronically elevated troponin #HTN #DM #Anemia of renal disease #?Pancreatic atrophy with multiple punctate benign-appearing parenchymal calcifications. Plan: CT head without contrast: No acute intracranial abnormality. CT angio chest abdomen pelvis: No pulmonary embolism, large right-sided pleural effusion, Right greater than left dependent atelectasis versus infiltrate.. Large amount of abdominal ascites. Procalcitonin 1.88, lactic acid:1 , Blood culture Urine culture Anemia panel: Monitor H&H Follow-up pleural fluid analysis Peritoneal fluid analysis -S/p right-sided thoracentesis with removal of 500 cc -Currently on broad-spectrum antibiotics. -Nephrology and pulmonary on board. Continue aspirin, statin, Plavix, sertraline, beta-catie -Continue levothyroxine -LDSSI, Monitor FSG Full Code DVT PPX: Heparin subc Attestations Medical Necessity Statement*: Patient is still in hospital management of sepsis. Pleural effusion. 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
[2022-03-11 17:56] LABS: Glucose Point of Care 128 mg/dL (70-110)
[2022-03-11] MEDS: atorvastatin 40 mg Tablet PO (17:58)
[2022-03-11] MEDS: sertraline 50 mg Tablet 75 MG PO (18:00)
--- NOTE | 2022-03-11 19:33 | PC.NURSE ---
Bedside report received from QA, RN
--- NOTE | 2022-03-11 19:43 | PC.NURSE ---
Peritoneal dialysis catheter dressing dry and intact. Pt opens eyes to voice, but is drowsy.
--- NOTE | 2022-03-11 20:09 | PC.NURSE ---
Peritoneal dialysis in progress.
--- NOTE | 2022-03-11 20:28 | PC.NURSE ---
Pt's gave 33 units of Basaglar insulin for a blood glucose of 157.
[2022-03-11] MEDS: temazepam 15 mg Capsule PO (20:30)
[2022-03-11] MEDS: clopidogrel 75 mg Tablet PO (20:31)
[2022-03-11] MEDS: aspirin 81 mg EC Tablet PO (20:31)
--- NOTE | 2022-03-11 22:12 | PC.NURSE ---
Pt's at bedside. Peritoneal dialysis in progress.
[2022-03-12] VITALS (30 sets, daily range): BP systolic 103–173; BP diastolic 60–104; PULSE 58–75; RESP 10–21; TEMP 36.8–37.3; O2SAT 88–100
--- NOTE | 2022-03-12 00:48 | PC.NURSE ---
Pt heard at nurses station yelling for help. Pt was lying sideways on bed. at bedside, did not wake up. I entered room and asked pt what was wrong. He told me, it's time to get up. Pt completely A/O to person, place, day, month, and year. He tells me that he thought the time was 12:10 PM, so he was scared something was wrong with his . I explained that it was 0010, and he is still receiving dialysis. Pt assisted back into a supine position. Bed alarm on.
[2022-03-12 03:41] LABS: Basophils % 0.1 %; Eosinophils # 0.4 10^3/uL (0.0-0.8); Eosinophils % 4.9 %; Hematocrit 25.7 % (42.0-52.0); Hemoglobin 7.8 g/dL (11.7-16.6); Lymphocytes # 1.3 10^3/uL (0.8-4.8); Lymphocytes % 17.1 %; Mean Corpuscular HGB Conc 30.4 g/dL (30.0-36.0); Mean Corpuscular Hemoglobin 29.9 pg (28.0-34.0); Mean Corpuscular Volume 98.5 fl (80-94); Mean Platelet Volume 11.5 fL (7.4-10.4); Monocytes # 0.9 10^3/uL (0.2-0.9); Monocytes % 11.6 %; Neutrophils # 4.96 10^3/uL (1.8-7.7); Neutrophils % 65.2 %; Nucleated Red Blood Cells % 0 %; Platelet Count 165 10^3/cmm (130-400); Red Blood Count 2.61 10^6/uL (4.1-5.3); Red Cell Distribution Width 18.5 % (12.1-15.1); White Blood Count 7.6 10^3/uL (4.0-10.0)
[2022-03-12 04:11] LABS: Alanine Aminotransferase 25 U/L (0-41); Alkaline Phosphatase 142 IU/L (40-130); Anion Gap 18.2 (5-19); Aspartate Amino Transferase 18 U/L (0-40); Blood Urea Nitrogen 52 mg/dL (8-23); Calcium 7.8 mg/dL (8.5-10.5); Carbon Dioxide 24 mmol/L (22-29); Chloride 95 mmol/L (98-107); Globulin 2.8 g/dL (1.3-4.6); Glomerular Filtration Rate 5.8 mL/min (90-130); Glucose 266 mg/dL (65-115); Osmolality Calculated 299 mOsm/kg (285-295); Phosphorus 5.9 mg/dL (2.5-4.5); Potassium 4.2 mmol/L (3.5-5.1); Sodium 133 mmol/L (136-145); Total Bilirubin 0.2 mg/dL (0.15-1.2); Total Protein 4.8 g/dL (6.6-8.7)
[2022-03-12] MEDS: levothyroxine 150 mcg Tablet PO (05:58)
[2022-03-12] MEDS: magnesium oxide 400 mg tablet PO (05:58)
[2022-03-12 07:52] LABS: Glucose Point of Care 231 mg/dL (70-110)
[2022-03-12] MEDS: temazepam 15 mg Capsule PO (08:09)
[2022-03-12] MEDS: sevelamer 800 mg Tablet PO ×3 (08:09→21:50)
[2022-03-12] MEDS: insulin lispro 100 unit/1 mL SUBCUT (08:10)
[2022-03-12] MEDS: pantoprazole DR 40 mg Tablet PO ×2 (08:10→18:04)
[2022-03-12] MEDS: lipase-protease-amylase Capsule 5 EACH PO ×3 (08:10→18:08)
[2022-03-12] MEDS: metoprolol tartrate 25 mg Tablet 12.5 MG PO ×2 (08:10→18:04)
[2022-03-12] MEDS: neomycin-poly-bacitracin oint 28 gm 1 APPLIC TOPICAL (08:11)
[2022-03-12 08:29] LABS: Osmolality Serum 312 mOsm/kg (278-305)
--- NOTE | 2022-03-12 08:54 | P.PN_ITS ---
Subjective Subjective: still sob, but improving. did CCPD last night. continues to loose weight Medications: Reviewed: Yes Medication Review Details: Current Medications Acetaminophen (Acetaminophen 325 Mg Tablet) 650 mg PO Q6H PRN PRN Reason: MILD PAIN Last Admin: 03/10/22 08:26 Dose: 650 mg Lipase/Protease/Amylase (Bshgfz-Khwsncjw-Xolduvo Capsule) 5 each PO TIDWM [facility] Last Admin: 03/12/22 08:10 Dose: 5 each Lipase/Protease/Amylase (Nymlyw-Fguwtvaz-Jocwdxk Capsule) 2 - 3 each PO PRN PRN PRN Reason: WITH SNACK Aspirin (Aspirin 81 Mg Ec Tablet) 81 mg PO BEDTIME [facility] Last Admin: 03/11/22 20:31 Dose: 81 mg Atorvastatin Calcium (Atorvastatin 40 Mg Tablet) 40 mg PO QPM [facility] Last Admin: 03/11/22 17:58 Dose: 40 mg Clopidogrel Bisulfate (Clopidogrel 75 Mg Tablet) 75 mg PO DAILY@2100 [facility] Last Admin: 03/11/22 20:31 Dose: 75 mg Dextrose (Dextrose 50% Syringe 50 Ml) 25 ml IVP ONCE PRN; Protocol PRN Reason: hypoglycemia protocol Dextrose (Dextrose 50% Syringe 50 Ml) 50 ml IVP PRN PRN; Protocol PRN Reason: hypoglycemia protocol Glucagon (Glucagon 1 Mg/Ml Inj 1 Ml) 1 mg IM ONCE PRN; Protocol PRN Reason: Adult Acute Hypoglycemia Prot. Hydromorphone HCl (Hydromorphone 4 Mg Tablet) 2 mg PO Q6H PRN PRN Reason: PAIN Last Admin: 03/10/22 15:14 Dose: 2 mg Ceftriaxone Sodium 2,000 mg/ (Dextrose) 50 mls @ 100 mls/hr IV Q24H [facility]; Protocol Last Infusion: 03/12/22 07:41 Dose: Infused Dextrose (D5w) 500 mls @ 100 mls/hr IV ONCE PRN; Protocol PRN Reason: Adult Acute Hypoglycemia Prot Insulin Glargine (Insulin Glargine 100 Units/1 Ml) 20 unit SUBCUT BEDTIME [facility] Last Admin: 03/12/22 07:40 Dose: Not Given Insulin Human Lispro (Insulin Lispro 100 Unit/1 Ml) 0 unit SUBCUT TIDWM [facility]; Protocol Last Admin: 03/12/22 08:10 Dose: 6 unit Levothyroxine Sodium (Levothyroxine 150 Mcg Tablet) 150 mcg PO QAM [facility] Last Admin: 03/12/22 05:58 Dose: 150 mcg Magnesium Oxide (Magnesium Oxide 400 Mg Tablet) 400 mg PO QAM [facility] Last Admin: 03/12/22 05:58 Dose: 400 mg Metoprolol Tartrate (Metoprolol Tartrate 25 Mg Tablet) 12.5 mg PO BID [facility] Last Admin: 03/12/22 08:10 Dose: 12.5 mg Neomycin/Polymyxin/Bacitracin (Qnozlwld-Gytr-Yqfsitkgtq Oint 28 Gm) 1 applic TOPICAL BID [facility] Last Admin: 03/12/22 08:11 Dose: 1 applic Nitroglycerin (Nitroglycerin 0.4 Mg Sublingual Tablet) 0.4 mg SUBLINGUAL Q5M PRN PRN Reason: Chest Pain Pantoprazole Sodium (Pantoprazole Dr 40 Mg Tablet) 40 mg PO BID [facility] Last Admin: 03/12/22 08:10 Dose: 40 mg Peritoneal Dialysis Solution (Dianeal Low Ca W/2.5% Dex 2,000 Ml Bag) 2,000 ml INTRAPERIT QID [facility] Last Admin: 03/12/22 08:11 Dose: Not Given Sertraline HCl (Sertraline 50 Mg Tablet) 75 mg PO QPM [facility] Last Admin: 03/11/22 18:00 Dose: 75 mg Sevelamer Carbonate (Sevelamer 800 Mg Tablet) 800 mg PO TID [facility] Last Admin: 03/12/22 08:09 Dose: 800 mg Temazepam (Temazepam 15 Mg Capsule) 15 mg PO DAILY [facility] Last Admin: 03/12/22 08:09 Dose: 15 mg Vitals/I&O/Wt Last Vital Signs Temp 99.2 F 03/12/22 00:10 Pulse 62 03/12/22 06:30 Resp 16 03/12/22 06:30 BP 118/75 03/12/22 06:30 Pulse Ox 99 03/12/22 06:30 O2 Del Method 03/12/22 06:30 O2 Flow Rate 4 03/12/22 06:30 FiO2 28 03/11/22 00:00 03/11/22 03/12/22 03/12/22 22:59 06:59 14:59 Intake Total 240 / 4526 120 / 4646 50 / 50 Output Total 2039 / 9339 Balance 240 / -2774 -1919 / -4693 50 / 50 Physical Exam Narrative: comfortable, on nc02- follows commands vs noted heent - nc/at, eomi, anicteric neck supple lungs dull bases and crackles heart reg abd soft, nt, distended, PD catheter ext b/l 1+ leg edema exam w/ RN- telehealth visit Data : 03/12/22 03:20 03/12/22 03:20 Micro: Microbiology 03/09/22 17:00 Urine Culture - Preliminary Urine,Voided Staphylococcus sp coag neg 03/10/22 05:45 Body Fluid Culture - Preliminary Ankle - Peritoneal 03/10/22 10:59 Gram Stain - Final Pleural Fluid Body Fluid Culture - Preliminary A&P Assessment and plan (1) End stage renal disease: 72 yr old man CAD s/p recent stents, IDDM, ESRD on CCPD for 2.5 yrs. He normally does 10 hrs CCPD w/ two 6 liter bags- usually 1.25% and 2.5 % gluc and daytime icodextran. Pt is here w/ severe sob and pleural effusions. 1. recent CAD and stents- echo noted 1. Normal left ventricular size and mildly increased wall ?thickness.? Mildly decreased left ventricle systolic function.? ?Left ventricular ejection fraction is estimated at 45-50 %.? ?Mild septal hypokinesis. Normal diastolic function. ?2. Normal right ventricular size and systolic function. ?3. Mild mitral and tricuspid valve regurgitation. ?4. When compared to previous study dated 02/18/2022, there has ?been no significant change. 2. pleural effusions- entraped lung. appreciate pulm input 3. ESRD- pt is tolerating CAPD- for now-we will cont CCPD at night w/ 2.5 % glucose, icodextran at day and one CAPD exchange of 2.5% glucose for 4 hrs -his is performing PD cycler set up and disconnect. Antibiotic ointment to exit site.? 4. anemia- YOSSI. iron studies w/ high ferritin -may benefit from 1 u prbc tx 6. phos binder seen and examined w/ rN- telehealth visit informed consent for Telehealth and for dialysis obtained discussed w/ nurse and pts time spent 30 min Status: Acute Plan see above Attestations Medical Necessity Statement*: sob, trapped lung, esrd, anemia Time Spent in Patient Care: 16 - 35 minutes (>than 50% of time spent in counselling and/or direct pt care on unit) . Coding Level of Care Code Acute [employer] Agent [employer] for [employer] Fwd Diagnoses End stage renal disease N18.6
[2022-03-12 09:21] LABS: Glucose Point of Care 210 mg/dL (70-110)
[2022-03-12] MEDS: epoetin alfa 10,000 unit/mL INJ 10000 UNIT SUBCUT (09:43)
--- NOTE | 2022-03-12 10:59 | XR_ITS ---
WS: [id number] Portable AP upright chest, 03/12/2022 Clinical Data: Follow up thoracentesis Comparison: Portable chest, 03/10/2022. Findings: The right pleural effusion has increased slightly compared to 03/10/2022. The left lung remai ns clear. There is a generator overlying the right lateral chest with the wire leading superiorly. No nodules or masses are seen. The heart size remains the same. Monitor leads are on the chest wall. XR/XR chest 1V portable [id number] Impression: Slight increase in right pleural effusion compared to prior study.
[2022-03-12 11:10] LABS: ABG PCO2 52.7 mmHg (35-45); ABG PH Result 7.35 (7.35-7.45); Arterial Blood Gas Hematocrit 25.5 % (42-52); Blood Gas Allen Test Pos; Blood Gas Sample Type Arterial; Carboxyhemoglobin 1.9 %THgb (0.4-20.1); HCO3 ABG 29.1 mmol/L (22-26); HGB O2 Sat 95.8 % (95-100); Ionized Calcium Level - ABG 1.1 mmol/L (1.1-1.4); Oxygen Saturation ABG 98.8; Potassium Level - ABG 3.9 mmol/L (3.5-5.0); Total Hemoglobin 8.3 g/dL (14-18)
[2022-03-12 11:11] LABS: Alveolar-Arterial Oxygen Gradi 4.1 mmHg (5-10); Blood Gas Sample Site Radial, right; Oxygen Device BIPAP
[2022-03-12 11:40] LABS: Glucose Point of Care 113 mg/dL (70-110)
--- NOTE | 2022-03-12 12:43 | P.PN_ITS ---
Subjective Subjective: Patient was seen and examined this morning, he was extremely drowsy today, ABG done this morning: Has shown pH of 7.35, PCO2 52, PO2 103, at 28% FiO2. Medications: Reviewed: Yes Medication Review Details: Current Medications Lipase/Protease/Amylase (Spkiac-Udoiexgf-Svuyvni Capsule) 5 each PO TIDWM [facility] Last Admin: 03/10/22 00:33 Dose: Not Given Lipase/Protease/Amylase (Jawxal-Hzaqrohe-Kengnqd Capsule) 2 - 3 each PO PRN PRN PRN Reason: WITH SNACK Aspirin (Aspirin 81 Mg Ec Tablet) 81 mg PO BEDTIME [facility] Atorvastatin Calcium (Atorvastatin 40 Mg Tablet) 40 mg PO QPM [facility] Clopidogrel Bisulfate (Clopidogrel 75 Mg Tablet) 75 mg PO DAILY@2100 [facility] Caspofungin 50 mg/ Sodium (Chloride) 250 mls @ 250 mls/hr IV Q24H [facility] Piperacillin Sod/Tazobactam (Sod 3.375 gm/ Sodium Chloride) 50 mls @ 12.5 mls/hr IV Q12H [facility]; Protocol Levothyroxine Sodium (Levothyroxine 150 Mcg Tablet) 150 mcg PO QAM [facility] Last Admin: 03/10/22 05:49 Dose: Not Given Magnesium Oxide (Magnesium Oxide 400 Mg Tablet) 400 mg PO QAM [facility] Last Admin: 03/10/22 05:49 Dose: Not Given Peritoneal Dialysis Solution (Dianeal Low Ca W/2.5% Dex 2,000 Ml Bag) 2,000 ml INTRAPERIT 6XD [facility] Last Admin: 03/10/22 04:48 Dose: 2,000 ml Sertraline HCl (Sertraline 50 Mg Tablet) 75 mg PO QPM [facility] Vitals/I&O/Wt Last Vital Signs Temp 99.2 F 03/12/22 00:10 Pulse 61 03/12/22 09:06 Resp 11 L 03/12/22 09:00 BP 125/82 03/12/22 09:00 Pulse Ox 97 03/12/22 09:06 O2 Del Method 03/12/22 09:00 O2 Flow Rate 4 03/12/22 09:00 FiO2 28 03/12/22 09:06 03/11/22 03/12/22 03/12/22 22:59 06:59 14:59 Intake Total 240 / 4526 120 / 4646 290 / 290 Output Total 8292 / 8272 Balance 240 / -2774 -1919 / -4693 290 / 290 Physical Exam Const: COMMON NORMALS: patient oriented x3 HENMT: COMMON NORMALS: normocephalic, atraumatic and hearing grossly normal bilaterally HEAD & SCALP: normocephalic and atraumatic Resp: OTHER: Occasional wheezing, diminished entry to his right lung field predominantly at bases. Cardio: COMMON NORMALS: regular rate, regular rhythm, S1 normal heart sound present, S2 normal heart sound present, No gallops present (Cardio), No murmurs present (Cardio), No rub (Cardio) and Peripheral pulses 2+ throughout RATE: regular rate RHYTHM: regular rhythm HEART SOUNDS: S1 normal heart sound present and S2 normal heart sound present PERIPHERAL PULSES: Peripheral pulses 2+ throughout GI: AUSCULTATION: Yes normoactive bowel sounds RECTAL EXAM: Yes deferred OTHER: Distended abdomen with fluid Thrills. Extremity: COMMON NORMALS: no clubbing, cyanosis or edema and no pedal edema Neuro: COMMON NORMALS: patient oriented x3 Data : 03/12/22 03:20 03/12/22 03:20 Micro: Microbiology 03/10/22 19:57 Body Fluid Culture - Preliminary Ankle - Peritoneal 03/10/22 05:45 Body Fluid Culture - Preliminary Ankle - Peritoneal 03/10/22 10:59 Gram Stain - Final Pleural Fluid Body Fluid Culture - Preliminary 03/09/22 17:00 Urine Culture - Preliminary Urine,Voided Staphylococcus sp coag neg A&P Assessment and plan (1) Pleural effusion: Status: Acute (2) Hypercapnic respiratory failure: Status: Acute (3) Bilateral wheezing: Status: Acute (4) Pneumonia: Status: Acute (5) End stage renal disease: Status: Acute (6) Acute hypokalemia: Status: Acute (7) Hypertension: Status: Acute Qualifiers: Hypertension type: essential hypertension Qualified Code(s): I10 - Essential (primary) hypertension (8) Pancreatitis: Status: Acute (9) Stage 5 chronic kidney disease: Status: Acute (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 (11) Peritoneal dialysis catheter in place: Status: Acute (12) Hyperlipidemia: Status: Acute Qualifiers: Hyperlipidemia type: unspecified Qualified Code(s): E78.5 - Hyperlipidemia, unspecified (13) Diabetes: Status: Acute Qualifiers: Chronic kidney disease stage: on chronic dialysis Diabetes mellitus complication detail: with chronic kidney disease Diabetes mellitus complication status: with kidney complications Diabetes mellitus half-way insulin use: with half-way use Diabetes mellitus type: type 2 Qualified Code(s): E11.22 - Type 2 diabetes mellitus with diabetic chronic kidney disease; N18.6 - End stage renal disease; Z79.4 - nursing home (current) use of insulin; Z99.2 - Dependence on renal dialysis (14) Pulmonary nodule: Status: Acute Plan #Symptomatic large right-sided pleural effusion #Sepsis secondary to pneumonia rule out other sources #Acute metabolic encephalopathy likely secondary to sepsis, hypercapnia #ESRD on peritoneal dialysis #Hypothyroidism #CAD status post PCI 2019 DESx1, 2021 DESx3 (2 angiograms in recent 3 weeks) #Chronically elevated troponin #HTN #DM #Anemia of renal disease #?Pancreatic atrophy with multiple punctate benign-appearing parenchymal calcifications. Plan: CT head without contrast: No acute intracranial abnormality. CT angio chest abdomen pelvis: No pulmonary embolism, large right-sided pleural effusion, Right greater than left dependent atelectasis versus infiltrate.. Large amount of abdominal ascites. Procalcitonin 1.88, lactic acid:1 , Blood culture Urine culture Anemia panel: Monitor H&H Follow-up pleural fluid analysis Peritoneal fluid analysis -S/p right-sided thoracentesis with removal of 500 cc -Currently on broad-spectrum antibiotics. -Nephrology and pulmonary on board. Continue aspirin, statin, Plavix, sertraline, beta-catie -Continue levothyroxine -LDSSI, Monitor FSG Full Code DVT PPX: Heparin subc Attestations Medical Necessity Statement*: Patient is still in for management of above defined problems. 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 Burner for [facility] Fwd Exam Detailed Diagnoses Pleural effusion J90 Hypercapnic respiratory failure J96.92 Bilateral wheezing R06.2 Pneumonia J18.9 End stage renal disease N18.6 Acute hypokalemia E87.6 Hypertension I10 Hypertension type: essential hypertension Pancreatitis K85.90 Stage 5 chronic kidney disease N18.5 Parkinsonian tremor G20 Peritoneal dialysis catheter in place Z99.2 Hyperlipidemia E78.5 Hyperlipidemia type: unspecified Diabetes E11.22; N18.6; Z79.4; Z99.2 Chronic kidney disease stage: on chronic dialysis Diabetes mellitus complication detail: with chronic kidney disease Diabetes mellitus complication status: with kidney complications Diabetes mellitus half-way insulin use: with half-way use Diabetes mellitus type: type 2 Pulmonary nodule R91.1
[2022-03-12] MEDS: Dianeal low Ca w/2.5% dex 2,000 mL Bag 2000 ML INTRAPERIT (15:11)
[2022-03-12 15:42] LABS: Osmolality Urine 336 mOsm/kg (50-1200)
[2022-03-12 16:58] LABS: Glucose Point of Care 140 mg/dL (70-110)
[2022-03-12] MEDS: sertraline 50 mg Tablet 75 MG PO (18:04)
[2022-03-12] MEDS: atorvastatin 40 mg Tablet PO (18:05)
--- NOTE | 2022-03-12 19:27 | PC.NURSE ---
Report called to MELISSA Mendoza on [facility]. Patient going to room 263. Patient to be transferred by retail shift leader when room is clean. Patient and family notified.
[2022-03-12 20:01] LABS: Glucose Point of Care 183 mg/dL (70-110)
[2022-03-12 20:25] LABS: ABG PH Result 7.32 (7.35-7.45); Arterial Blood Gas Hematocrit 29.5 % (42-52); Base Excess ABG 0.9 mmol/L (-2.0-2.0); Blood Gas Allen Test Pos; Blood Gas Sample Site Radial, left; Blood Gas Sample Type Arterial; Carboxyhemoglobin 1.8 %THgb (0.4-20.1); HCO3 ABG 27.5 mmol/L (22-26); HGB O2 Sat 96.1 % (95-100); Ionized Calcium Level - ABG 1.1 mmol/L (1.1-1.4); Methemoglobin 0.7 % (0.4-1.5); Oxygen Device NC; Oxygen Saturation ABG 98.6; Potassium Level - ABG 4.2 mmol/L (3.5-5.0); Total Hemoglobin 9.6 g/dL (14-18)
--- NOTE | 2022-03-12 20:46 | CTR_ITS ---
PROCEDURE INFORMATION: Exam: CT Head Without Contrast Exam date and time: 03/12/2022 9:13 PM Age: 72 years old Clinical indication: Weakness, extremity; Right; Prior surgery; Surgery type: Brain stimulator; Patient HX: Sudden onset of RT upper ext weakness. ; Additional info: Change in patient status. TECHNIQUE: Imaging protocol: Computed tomography of the head without contrast. Radiation optimization: All CT scans at this facility use at least one of these dose optimization techniques: automated exposure control; mA and/or kV adjustment per patient size (includes targeted exams where dose is matched to clinical indication); or iterative reconstruction. COMPARISON: CT head wo con* [id number] 03/10/2022 1:09 AM RADIATION DOSE METRICS: Total DLP (mGy-cm): 1255.78 FINDINGS: Tubes, catheters and devices: There are bilateral neuro stimulating electrodes extending to the subthalamic regions bilaterally. Brain: There is mild diffuse cerebral atrophy. Patchy areas of hypoattenuation are seen in the deep white matter of the cerebral hemispheres bilaterally compatible with mild deep white matter microvascular disease. Cerebral ventricles: No ventriculomegaly. Paranasal sinuses: Moderate mucosal thickening is seen within the sphenoidal sinuses. Mastoid air cells: Visualized mastoid air cells are well aerated. Bones/joints: Unremarkable. No acute fracture. Soft tissues: Unremarkable. CT/CT head wo con* [id number] IMPRESSION: There are no acute intracranial findings. Stable head CT compared with 03/10/2022.
[2022-03-12] MEDS: clopidogrel 75 mg Tablet PO (21:50)
[2022-03-12] MEDS: aspirin 81 mg EC Tablet PO (21:50)
[2022-03-12] MEDS: insulin glargine 100 units/1 mL 20 UNIT SUBCUT (21:50)
--- NOTE | 2022-03-12 22:17 | PC.NURSE ---
Change in patient status. At 1999 patients expressed concern that patient was experiencing increased right sided weakness. Weakness was not as noticeable during shift report. Neuro assessment complete. No facial droop, pupils equal and reactive, alert and oriented, right sided weakness in arm and leg, increased slurring of words. Physician notified with new order for ABG stat, and new set of vitals. Results given to Dr. Quesada, with order for CT of head w/o contrast stat. Patient transferred to CT 2100 on portable monitoring. Once patient was brought back to ICU room, right sided weakness had resolved. Physician notified with orders to continue with transfer to Med-Surg. Patient was transferred to Med-Surg room 263 on 4 liters of oxygen. Nurse DEZ Umanzor updated on events that occurred. All questions answered. Family remained at bedside.
[2022-03-13] VITALS (10 sets, daily range): BP systolic 124–153; BP diastolic 67–72; PULSE 61–73; RESP 15–20; TEMP 36.4–36.6; O2SAT 97–100
[2022-03-13 04:12] LABS: Basophils % 0.2 %; Eosinophils # 0.3 10^3/uL (0.0-0.8); Eosinophils % 5.2 %; Hematocrit 26.9 % (42.0-52.0); Hemoglobin 8.2 g/dL (11.7-16.6); Lymphocytes # 1.2 10^3/uL (0.8-4.8); Lymphocytes % 18.8 %; Mean Corpuscular HGB Conc 30.5 g/dL (30.0-36.0); Mean Corpuscular Hemoglobin 29.8 pg (28.0-34.0); Mean Corpuscular Volume 97.8 fl (80-94); Mean Platelet Volume 11.3 fL (7.4-10.4); Monocytes # 0.9 10^3/uL (0.2-0.9); Monocytes % 14.2 %; Neutrophils # 3.81 10^3/uL (1.8-7.7); Neutrophils % 59.6 %; Nucleated Red Blood Cells % 0 %; Platelet Count 175 10^3/cmm (130-400); Red Blood Count 2.75 10^6/uL (4.1-5.3); Red Cell Distribution Width 18.6 % (12.1-15.1); White Blood Count 6.4 10^3/uL (4.0-10.0)
[2022-03-13 04:47] LABS: Alanine Aminotransferase 21 U/L (0-41); Albumin Level 1.8 g/dL (3.5-5.2); Alkaline Phosphatase 146 IU/L (40-130); Anion Gap 20.9 (5-19); Aspartate Amino Transferase 18 U/L (0-40); Blood Urea Nitrogen 45 mg/dL (8-23); Carbon Dioxide 20 mmol/L (22-29); Chloride 97 mmol/L (98-107); Globulin 3.2 g/dL (1.3-4.6); Glomerular Filtration Rate 5.4 mL/min (90-130); Glucose 157 mg/dL (65-115); Magnesium 2.3 mg/dL (1.7-2.3); Osmolality Calculated 293 mOsm/kg (285-295); Phosphorus 6.6 mg/dL (2.5-4.5); Potassium 3.9 mmol/L (3.5-5.1); Sodium 134 mmol/L (136-145); Total Bilirubin 0.3 mg/dL (0.15-1.2)
[2022-03-13 04:54] LABS: Vancomycin Trough 26.6 ug/mL (10-15)
[2022-03-13 06:44] LABS: Glucose Point of Care 203 mg/dL (70-110)
[2022-03-13] MEDS: levothyroxine 150 mcg Tablet PO (06:58)
[2022-03-13] MEDS: magnesium oxide 400 mg tablet PO (06:58)
[2022-03-13] MEDS: sevelamer 800 mg Tablet PO (09:00)
[2022-03-13] MEDS: metoprolol tartrate 25 mg Tablet 12.5 MG PO (09:00)
[2022-03-13] MEDS: pantoprazole DR 40 mg Tablet PO (09:01)
[2022-03-13] MEDS: insulin lispro 100 unit/1 mL SUBCUT (09:01)
[2022-03-13] MEDS: neomycin-poly-bacitracin oint 28 gm 1 APPLIC TOPICAL (09:02)
[2022-03-13] MEDS: lipase-protease-amylase Capsule 5 EACH PO ×2 (11:14→14:42)
--- NOTE | 2022-03-13 11:24 | PM.PN ---
Vitals/I&O/Wt Last Vital Signs Temp 97.8 F 03/13/22 05:48 Pulse 66 03/13/22 07:28 Resp 17 03/13/22 07:28 BP 130/68 03/13/22 07:17 Pulse Ox 98 03/13/22 07:28 O2 Del Method 03/13/22 07:17 O2 Flow Rate 4 03/13/22 07:28 FiO2 28 03/13/22 05:53 03/12/22 03/13/22 03/13/22 22:59 06:59 14:59 Intake Total 240 / 770 0 / 770 240 / 240 Balance 240 / 770 0 / 770 240 / 240 Data : 03/13/22 03:50 03/13/22 03:50 Micro: Microbiology 03/10/22 05:45 Body Fluid Culture - Final Ankle - Peritoneal 03/10/22 19:57 Body Fluid Culture - Preliminary Ankle - Peritoneal 03/10/22 10:59 Gram Stain - Final Pleural Fluid Body Fluid Culture - Final 03/09/22 17:00 Urine Culture - Final Urine,Voided Staphylococcus epidermidis 03/10/22 10:59 Mycobacterial Smear - Preliminary Body Fluids - Pleura A&P Assessment and plan Plan 1. ESRD on peritoneal dialysis 2. Volume overload, mild hyponatremia 3. Hypoalbuminemia 4. Anemia, Hb improving, continue current dose epogen 5. Electrolytes: stop Mg and increase sevelemar Coding Level of Care Code Acute Fortune Teller for Chg Vick
[2022-03-13 11:33] LABS: Glucose Point of Care 133 mg/dL (70-110)
--- NOTE | 2022-03-13 11:38 | P.DS_ITS ---
Discharge Providers Date of Admission: 03/09/22 19:18 Date of Discharge: March 13, 2022 Attending Provider at Admission: Sarah Quesada MD Attending Provider at Discharge: Suleman Hemphill MD Primary Care Provider: Irene Jones Diagnoses at Discharge Discharge Diagnosis (1) Pleural effusion: Status: Acute (2) Hypercapnic respiratory failure: Status: Acute (3) Bilateral wheezing: Status: Acute (4) Pneumonia: Status: Acute (5) End stage renal disease: Status: Acute (6) Acute hypokalemia: Status: Acute (7) Hypertension: Status: Acute Qualifiers: Hypertension type: essential hypertension Qualified Code(s): I10 - Essential (primary) hypertension (8) Pancreatitis: Status: Acute Permanent problem details: takes chronic pancrease (9) Stage 5 chronic kidney disease: Status: Acute (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 (11) Peritoneal dialysis catheter in place: Status: Acute (12) Hyperlipidemia: Status: Acute Qualifiers: Hyperlipidemia type: unspecified Qualified Code(s): E78.5 - Hyperlipidemia, unspecified (13) Diabetes: Status: Acute Qualifiers: Chronic kidney disease stage: on chronic dialysis Diabetes mellitus complication detail: with chronic kidney disease Diabetes mellitus complication status: with kidney complications Diabetes mellitus rn long term care insulin use: with penitentiary use Diabetes mellitus type: type 2 Qualified Code(s): E11.22 - Type 2 diabetes mellitus with diabetic chronic kidney disease; N18.6 - End stage renal disease; 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; Z99.2 - Dependence on renal dialysis (14) Pulmonary nodule: Status: Acute Reason for Visit Reason for Visit: Chest pain Hospital Course Hospital Course HPI: Sarah Quesada MD Anshu Hurt is a 72 year old male with past medical history of end-stage renal disease dependent on peritoneal dialysis, CAD status post recent PCI February 21 DESx2, balloon angioplasty along with another DESx1 February 2022, Parkinson's disease (has deep brain stimulator), hypothyroidism, hypertension, hyperlipidemia, gout, diabetes, gastroparesis presented to the hospital today for altered mental status and shortness of breath.? He was diagnosed with a right pleural effusion as an outpatient recently at another hospital but did not get thoracentesis done due to the fact that he was on aspirin Plavix.? Patient was placed on oxygen and sent home.? Patient was supposed to follow-up with a gear hobber on March 10, 2022.? Patient's states that patient was treated for bronchitis with antibiotics for 10 days on February 17, 2022 and subsequently saw vascular surgeon for necrotic wound of right finger and has been on antibiotics for that as well.? Overall he has been on oral antibiotics for the last 15 to 20 days.? She also states that at one point his heart rate was noted to be 32 at urgent care outpatient.? He has reported time and time again of chest pain mainly on his right side associated with breathing.? Within the last 2 weeks he was also given a diagnosis of pneumonia and treated for that again with oral antibiotics.? Patient unable to provide any history at this time.? He is on BiPAP and somewhat altered.? She also states that for the last few weeks he has been getting more and more altered and today was very sleepy along with short of breath and therefore she decided to bring him to the hospital.? They were at their primary care's office this past Wednesday and his oxygen saturation was 81%.? This was attributed to his pleural effusion.? At this time when seen patient denies being in any pain, denies cough, denies shortness of breath (currently on BiPAP mask) and says that he is comfortable.? He does not talk very much and answers mainly yes versus no.? Unable to fully assess if he is oriented as patient falls back asleep during the conversation.? However earlier when seen by ER doc there were moments when patient was alert and oriented and was speaking to his daughter on the phone.? Patient decided he wanted to be a full code.? Family is also in agreement at this time. When seen by me at bedside patient's blood pressure was 80/57 and subsequently 90/62.? Heart rate 70s, saturation 100% on BiPAP.? Patient's states that his baseline blood pressure at home runs anywhere from 1 10-1 20 systolic over 70-80 diastolic. ED course: Blood pressure on arrival 139/74, respiratory rate 16, pulse 79, temperature 98.1, on 3 L nasal cannula.? Subsequently switched onto BiPAP.? X- ray showed large pleural effusion.? WBC 14.5.? CTA chest ordered.? It showed possible right-sided infiltrate versus atelectasis.? Negative for PE.? Large amount of abdominal ascites.? Common bile duct prominent measuring 15.8 mm, focal saccular 2.8 cm infrarenal abdominal aortic aneurysm without rupture.? Pancreatic atrophy with multiple punctate benign-appearing parenchymal calcifications.? He was noted to be in significant respiratory distress and expiratory wheezes.? Patient received albuterol and placed on BiPAP.? ABG showed pH 7.24/68.9.? Baseline troponin 315.? EKG did not show any acute ischemic changes.? Nephrology consult placed, pulmonology critical care consult placed. Hospital course: Patient was admitted for the management of acute hypoxic hypercapnic respiratory failure, likely secondary to symptomatic right-sided pleural effusion, altered mental status, likely secondary to hypercapnia, possible pneumonia,Patient underwent right-sided thoracentesis, pleural fluid analysis has shown exudative effusion Patient was empirically kept on broad-spectrum antibiotics, cultures were negative, possibly patient also presented with sepsis on admission, given the constellation of findings reported by the admitting physician Pointing towards sepsis, likely culprit being blamed as of now is pneumonia. Post thoracentesis 500 cc fluid was removed, pulmonary medicine is of the opinion that there is lung entrapment, which will likely need decortication as outpatient as the patient is currently on dual antiplatelet agent, the plan to wait for 3 months.Patient was continued on routine peritoneal dialysis renal was on board, peritoneal fluid analysis is sterile. During the hospital stay patient did complain of times of acute onset of right upper extremity weakness lasting transiently with full recovery, CT head without contrast was performed 2 times, both failed to show any acute intracranial pathology, MRI was not pursued, as clinical suspicion for acute CVA is low, And and for that matter patient is currently on aspirin Plavix and statin, that will cover him for any very less likely TIA. 2D echo done during the hospital stay: Has failed to show any vegetation,clinical suspicion for infective endocarditis is low.Overall patient has responded well to above medical management and is being discharged in stable condition to home. Physical Exam Const: COMMON NORMALS: patient oriented x3 HENMT: COMMON NORMALS: normocephalic, atraumatic and hearing grossly normal bilaterally HEAD & SCALP: normocephalic and atraumatic Resp: OTHER: Occasional wheezing, diminished entry to his right lung field predominantly at bases. Cardio: COMMON NORMALS: regular rate, regular rhythm, S1 normal heart sound present, S2 normal heart sound present, No gallops present (Cardio), No murmurs present (Cardio), No rub (Cardio) and Peripheral pulses 2+ throughout RATE: regular rate RHYTHM: regular rhythm HEART SOUNDS: S1 normal heart sound present and S2 normal heart sound present PERIPHERAL PULSES: Peripheral pulses 2+ throughout GI: AUSCULTATION: Yes normoactive bowel sounds RECTAL EXAM: Yes deferred OTHER: Distended abdomen with fluid Thrills. Extremity: COMMON NORMALS: no clubbing, cyanosis or edema and no pedal edema Neuro: COMMON NORMALS: patient oriented x3 Discharge Data Studies Completed and Pending Completed Studies During Hospitalization Category Date Time Status CT head wo con* [id number] Stat Cat Scan 03/12/22 20:[address] head wo con* [id number] Urgent Cat Scan 03/09/22 22:26 Completed CTA chest abdomen pelvis [CT angio chest abdomen pelvis Cat Scan 03/09/22 17:39 Completed ] Urgent XR chest 1V portable [id number] Routine Exams 03/10/22 11:40 Completed XR chest 1V portable [id number] Stat Exams 03/12/22 10:59 Completed XR chest 1V portable [id number] Urgent Exams 03/09/22 15:11 Completed CV. echo complete* [id number] Routine Ultrasound 03/09/22 22:17 Completed Pending at discharge Category Date Time Status Blood Culture Stat Lab 03/09/22 00:45 Results Body Fluid Culture Routine Lab 03/10/22 19:57 Results Complete Blood Count w/Auto AM LABS Lab 03/14/22 04:00 Ordered Complete Blood Count w/Auto AM LABS Lab 03/15/22 04:00 Ordered Comprehensive Metabolic Panel AM LABS Lab 03/14/22 04:00 Ordered Comprehensive Metabolic Panel AM LABS Lab 03/15/22 04:00 Ordered Magnesium AM LABS Lab 03/14/22 04:00 Ordered Magnesium AM LABS Lab 03/15/22 04:00 Ordered Mycobacteria, Culture w/Fluor Routine Lab 03/10/22 10:59 Results Occult Blood Stool [Immunochemical Fecal OCB] Routine Lab 03/09/22 22:18 Uncol lected Phosphorus AM LABS Lab 03/14/22 04:00 Ordered Phosphorus AM LABS Lab 03/15/22 04:00 Ordered Sputum Culture and Gram Stain Stat Lab 03/09/22 20:59 Uncollected Cytology [PTH] Routine Pth 03/10/22 11:15 Received Radiology Impressions Chest/Abdomen/Pelvis CTA 03/09/22 17:39 IMPRESSION: 1. Negative for pulmonary embolus. 2. Cardiomegaly. 3. Coronary artery atherosclerotic calcifications. 4. 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 5. Large right pleural effusion. 6. Right greater than left dependent atelectasis versus infiltrate. 7. Large amount of abdominal ascites. 8. Several right kidney cysts. 9. Pancreatic atrophy with multiple punctate benign-appearing parenchymal calcifications. 10. Cholecystectomy suspected. 11. Common bile duct is prominent measuring 15.8 mm without obstructing lesion, likely related to prior cholecystectomy, MRCP could further evaluate this as clinically indicated. 12. Percutaneous catheter seen with tip coiled in the pelvis. 13. Focal saccular 2.8 cm infrarenal abdominal aortic aneurysm without rupture. COMMENTS: Consistent with the [employer]'s Incidental Findings Committee white paper (J Am Yaw Radiol 2018): Any incidental renal lesion less than 1 cm or classified as too small to characterize, or any incidental cystic renal lesion characterized as simple-appearing, is likely benign. No follow-up imaging is recommended for these lesions per consensus recommendations based on imaging criteria. Chest X-Ray 03/12/22 10:59 Impression: Slight increase in right pleural effusion compared to prior study. Head CT 03/12/22 20:46 IMPRESSION: There are no acute intracranial findings. Stable head CT compared with 03/10/2022. Laboratory Results WBC 6.4 10^3/uL (4.0-10.0) 03/13/22 03:50 RBC 2.75 10^6/uL (4.1-5.3) L 03/13/22 03:50 Hgb 8.2 g/dL (11.7-16.6) L 03/13/22 03:50 Hct 26.9 % (42.0-52.0) L 03/13/22 03:50 MCV 97.8 fl (80-94) H 03/13/22 03:50 MCH 29.8 pg (28.0-34.0) 03/13/22 03:50 MCHC 30.5 g/dL (30.0-36.0) 03/13/22 03:50 RDW 18.6 % (12.1-15.1) H 03/13/22 03:50 Plt Count 175 10^3/cmm (130-400) 03/13/22 03:50 MPV 11.3 fL (7.4-10.4) H 03/13/22 03:50 Neut % (Auto) 59.6 % 03/13/22 03:50 Lymph % (Auto) 18.8 % 03/13/22 03:50 [place] % (Auto) 14.2 % 03/13/22 03:50 Eos % (Auto) 5.2 % 03/13/22 03:50 Baso % (Auto) 0.2 % 03/13/22 03:50 Neut # (Auto) 3.81 10^3/uL (1.8-7.7) 03/13/22 03:50 Lymph # (Auto) 1.2 10^3/uL (0.8-4.8) 03/13/22 03:50 [place] # (Auto) 0.9 10^3/uL (0.2-0.9) 03/13/22 03:50 Eos # (Auto) 0.3 10^3/uL (0.0-0.8) 03/13/22 03:50 Baso # (Auto) 0.0 10^3/uL (0.0-0.1) 03/13/22 03:50 Nucleated RBC % (auto) 0 % 03/13/22 03:50 Nucleated RBCs # 0.0 /100WBC 03/13/22 03:50 Specimen Type Arterial 03/12/22 20:13 Sample Site Radial, left 03/12/22 20:13 ABG pH 7.32 (7.35-7.45) L 03/12/22 20:13 ABG pCO2 53.0 mmHg (35-45) H 03/12/22 20:13 ABG pO2 108.0 mmHg (80.0-100.0) H 03/12/22 20:13 ABG HCO3 27.5 mmol/L (22-26) H 03/12/22 20:13 ABG O2 Saturation 98.6 03/12/22 20:13 ABG Base Excess 0.9 mmol/L (-2.0-2.0) 03/12/22 20:13 Jose Test Pos 03/12/22 20:13 A-a O2 Gradient Not Reportable 03/12/22 20:13 Hematocrit 29.5 % (42-52) L 03/12/22 20:13 Hgb O2 Saturation 96.1 % (95-100) 03/12/22 20:13 Carboxyhemoglobin 1.8 %THgb (0.4-20.1) 03/12/22 20:13 Methemoglobin 0.7 % (0.4-1.5) 03/12/22 20:13 Total Hemoglobin 9.6 g/dL (14-18) L 03/12/22 20:13 Sodium 135.0 mmol/L (131-143) 03/12/22 20:13 Potassium 4.2 mmol/L (3.5-5.0) 03/12/22 20:13 Glucose 186.0 mg/dL (70-115) H 03/12/22 20:13 Ionized Calcium 1.1 mmol/L (1.1-1.4) 03/12/22 20:13 O2 Delivery Device Nc 03/12/22 20:13 O2 Liters/Min 4.0 % 03/12/22 20:13 FiO2 28.0 % 03/12/22 11:05 Ultrasonic Seaming Machine Operator ID Hensa 03/12/22 20:13 Sodium 134 mmol/L (136-145) L 03/13/22 03:50 Potassium 3.9 mmol/L (3.5-5.1) 03/13/22 03:50 Chloride 97 mmol/L (98-107) L 03/13/22 03:50 Carbon Dioxide 20 mmol/L (22-29) L 03/13/22 03:50 Anion Gap 20.9 (5-19) H 03/13/22 03:50 BUN 45 mg/dL (8-23) H 03/13/22 03:50 Creatinine 9.6 mg/dL (0.7-1.2) H* 03/13/22 03:50 GFR Calculation 5.4 mL/min (90-130) L 03/13/22 03:50 Glucose 157 mg/dL (65-115) H 03/13/22 03:50 POC Glucose 133 mg/dL (70-110) H 03/13/22 11:30 Serum Osmolality 312 mOsm/kg (278-305) H 03/10/22 03:13 Calculated Osmolality 293 mOsm/kg (285-295) 03/13/22 03:50 Lactate 1.0 mmol/L (0.5-2.2) 03/09/22 22:59 Uric Acid 7.5 mg/dL (3.4-7.0) H 03/09/22 19:06 Calcium 8.0 mg/dL (8.5-10.5) L 03/13/22 03:50 Phosphorus 6.6 mg/dL (2.5-4.5) H 03/13/22 03:50 Magnesium 2.3 mg/dL (1.7-2.3) 03/13/22 03:50 Iron 24 ug/dL (59-158) L 03/10/22 03:13 TIBC 168 mcg/dl 03/10/22 03:13 % Saturation 14.2 % (20-50) L 03/10/22 03:13 Unsat Iron Binding 144 ug/dL (112-347) 03/10/22 03:13 Ferritin 1689 ng/mL (30-400) H 03/10/22 03:13 Total Bilirubin 0.3 mg/dL (0.15-1.2) 03/13/22 03:50 AST 18 U/L (0-40) 03/13/22 03:50 ALT 21 U/L (0-41) 03/13/22 03:50 Alkaline Phosphatase 146 IU/L (40-130) H 03/13/22 03:50 Troponin T Baseline 310 ng/L (0-15) H* 03/09/22 16:20 Troponin T 120 Minute 310.0 ng/L (0-15) H 03/09/22 19:06 Delta Troponin T 0 ABS# (0-10) 03/09/22 19:06 Troponin T Hi Sens 6Hr 271.7 ng/L (0-15) H 03/09/22 22:59 Troponin T Hi Sens 6Hr Delta -38.3 ng/L (0-12) L 03/09/22 22:59 NT-Pro-B Natriuret Pep > 64158 pg/mL (0-125) H 03/09/22 19:06 Total Protein 5.0 g/dL (6.6-8.7) L 03/13/22 03:50 Albumin 1.8 g/dL (3.5-5.2) L 03/13/22 03:50 Globulin 3.2 g/dL (1.3-4.6) 03/13/22 03:50 Procalcitonin 1.88 ng/mL (0-0.5) H 03/09/22 22:59 TSH 1.69 uIU/mL (0.27-4.20) 03/10/22 03:13 TSH Cancelled 03/10/22 03:13 PTH Intact 367.6 pg/mL (15-65) H 03/10/22 03:13 Calcium (PTH Intact) 7.5 mg/dL (8.5-10.5) L 03/10/22 03:13 Urine Osmolality 336 mOsm/kg (50-1200) 03/10/22 17:00 Ur Random Sodium 33 mmol/L 03/10/22 17:00 Fluid Color Red 03/10/22 10:59 Fluid Appearance Cloudy 03/10/22 10:59 Fluid WBC 3723 /uL 03/10/22 10:59 Fluid RBC 103.000 10^3/uL 03/10/22 10:59 Fld Polynuclear WBCs # 2.740 03/10/22 10:59 Fld Polynuclear WBCs % 73.600 % 03/10/22 10:59 Fl Mononucl WBCs #(Auto) 0.983 03/10/22 10:59 Fl Mononuclear % Auto 26.400 % 03/10/22 10:59 Pleural pH 8.00 (6.5-7.5) H 03/10/22 10:59 Pleural Total Protein 3.0 g/dL 03/10/22 10:59 Pleural LDH 492 U/L 03/10/22 10:59 Pleural Glucose 144.0 mg/dL 03/10/22 10:59 Vancomycin Trough 26.6 ug/mL (10-15) H* 03/13/22 03:50 SARS-CoV-2 Ag (Rapid) Negative (Negative) 03/09/22 16:28 Vitals Last Vital Signs Temp 97.8 F 03/13/22 05:48 Pulse 66 03/13/22 07:28 Resp 17 03/13/22 07:28 BP 130/68 03/13/22 07:17 Pulse Ox 98 03/13/22 07:28 O2 Del Method 03/13/22 07:17 O2 Flow Rate 4 03/13/22 07:28 FiO2 28 03/13/22 05:53 Discharge Plan Discharge Patient Disposition: Home Condition: Stable Prescriptions: New levofloxacin 750 mg tablet 750 mg PO Q48H 7 Days Qty: 4 0RF Continued omeprazole 20 mg capsule,delayed release(DR/EC) 20 mg PO BID potassium chloride 20 mEq tablet extended release 20 meq PO QAM insulin aspart U-100 [Novolog Flexpen U-100 Insulin] 100 unit/mL (3 mL) insulin pen See Rx Instructions .ROUTE .COMPLEX Rx Instructions: 12 units tid with meals plus sliding scale magnesium oxide [MagOx] 400 mg (241.3 mg magnesium) Tablet 400 mg PO QAM insulin glargine [Basaglar KwikPen U-100 Insulin] 100 unit/mL (3 mL) Insulin Pen See Rx Instructions .ROUTE .COMPLEX Rx Instructions: 22-40 units according to bag used for dialysis Creon 12,000-38,000 -60,000 unit Capsule,Delayed Release(Dr/Ec) See Rx Instructions .ROUTE .COMPLEX Rx Instructions: 5 cap po with meals and 2-3 caps with snacks. levothyroxine [Euthyrox] 150 mcg Tablet 150 mcg PO QAM Rx Instructions: Take on an empty stomach sertraline 50 mg Tablet 75 mg PO QPM pregabalin [Lyrica] 150 mg Capsule 150 mg PO BEDTIME calcium acetate(phosphat bind) 667 mg capsule See Rx Instructions .ROUTE .COMPLEX Rx Instructions: Take 3 caps PO with meals and 1 cap with snack. (Do not exceed 12 caps per day). cholecalciferol (vitamin D3) 1,250 mcg (50,000 unit) capsule 50,000 unit PO Q7D Rx Instructions: on wed clopidogrel 75 mg Tablet 75 mg PO DAILY@2100 Qty: 120 4RF atorvastatin 40 mg tablet 40 mg PO QPM Qty: 90 3RF aspirin 81 mg Tablet,Delayed Release (Dr/Ec) 81 mg PO BEDTIME Qty: 120 3RF metoprolol tartrate 25 mg Tablet 12.5 mg PO BID nitroglycerin [Nitrostat] 0.4 mg Tablet, Sublingual 0.4 mg SUBLINGUAL Q5M PRN (Reason: Chest Pain) Rx Instructions: do not exceed 3 doses per episode albuterol sulfate 90 mcg/actuation HFA aerosol inhaler 2 inh INHALATION Q6H PRN (Reason: shortness of breath or wheezing) Qty: 8 0RF Discontinued amoxicillin-pot clavulanate 875-125 mg Tablet 1 tab PO BID Qty: 10 0RF temazepam 15 mg Capsule 15 mg PO DAILY Discharge Orders: Discharge Order (Routine); Ordered 03/13/22 Ordered By: Suleman Hemphill Referrals: Kiran Reardon MD [Primary Care Provider] - 03/19/22 9:00 am Missy Fermin MD [Physician] - 03/23/22 2:15 pm Patient Instructions: Levofloxacin (By mouth) (Levaquin, Levaquin Leva-nick), Opioid Safety, Pneumonia Stoplight, Pneumonia - Viral Discharge Attestations Time Spent in Discharge Care*: less than 30 min Quality Metrics Clinical Quality Measures [ No reported AMI, CVA or VTE this stay] Coding Level of Care Code Acute Chg FW DC note Exam Detailed Diagnoses Pleural effusion J90 Hypercapnic respiratory failure J96.92 Bilateral wheezing R06.2 Pneumonia J18.9 End stage renal disease N18.6 Acute hypokalemia E87.6 Hypertension I10 Hypertension type: essential hypertension Pancreatitis K85.90 Stage 5 chronic kidney disease N18.5 Parkinsonian tremor G20 Peritoneal dialysis catheter in place Z99.2 Hyperlipidemia E78.5 Hyperlipidemia type: unspecified Diabetes E11.22; N18.6; Z79.4; Z99.2 Chronic kidney disease stage: on chronic dialysis Diabetes mellitus complication detail: with chronic kidney disease Diabetes mellitus complication status: with kidney complications Diabetes mellitus rn long term care insulin use: with rn long term care use Diabetes mellitus type: type 2 Pulmonary nodule R91.1
[2022-03-13] MEDS: epoetin alfa 10,000 unit/mL INJ 10000 UNIT SUBCUT (14:42)
--- NOTE | 2022-03-13 16:14 | PC.NURSE ---
Discharge, follow up appointments, medication, medication changes and discontinued medications discussed with patient and spouse. Verbalized understanding.
== END 2022-03-13 16:17 | disposition home health service (06) | DRG 871 ==
LOC: ER 19:56 → ICU 20:54 → MEDSURG 03-12 22:14
PROVIDERS: Internal Medicine Critical Care Medicine; Internal Medicine Nephrology; Admitting Provider Internal Medicine; Emergency Provider Emergency Medicine; PCP Family Medicine; Visit Provider Internal Medicine
DX: A41.9 Sepsis, unspecified organism (principal); G93.41 Metabolic encephalopathy; J18.9 Pneumonia, unspecified organism; J96.02 Acute respiratory failure with hypercapnia; N18.6 End stage renal disease; J91.8 Pleural effusion in other conditions classified elsewhere; I12.0 Hypertensive chronic kidney disease with stage 5 chronic kidney disease or end stage renal disease; E87.2 Acidosis; K86.1 Other chronic pancreatitis; E11.22 Type 2 diabetes mellitus with diabetic chronic kidney disease; E11.43 Type 2 diabetes mellitus with diabetic autonomic (poly)neuropathy; K31.84 Gastroparesis; E78.5 Hyperlipidemia, unspecified; E03.9 Hypothyroidism, unspecified; E87.5 Hyperkalemia; I95.9 Hypotension, unspecified; K86.89 Other specified diseases of pancreas; D63.1 Anemia in chronic kidney disease; R91.1 Solitary pulmonary nodule; R77.8 Other specified abnormalities of plasma proteins; D72.829 Elevated white blood cell count, unspecified; I51.7 Cardiomegaly; G20 Parkinson's disease; F32.A Depression, unspecified; I25.10 Atherosclerotic heart disease of native coronary artery without angina pectoris; M10.9 Gout, unspecified; Z23 Encounter for immunization; Z99.2 Dependence on renal dialysis; Z95.5 Presence of coronary angioplasty implant and graft; Z87.891 Personal history of nicotine dependence; Z79.4 Long term (current) use of insulin; Z96.82 Presence of neurostimulator; Z79.02 Long term (current) use of antithrombotics/antiplatelets
CPT/HCPCS: 36415; 36416; 36600; 70450; 71045; 71275; 74174; 80048; 80051; 80053; 80202; 80503; 82310; 82330; 82728; 82803; 82805; 82945; 82962; 83540; 83550; 83605; 83615; 83735; 83880; 83930; 83935; 83970; 83986; 84100; 84145; 84157; 84300; 84443; 84484; 84550; 85025; 87015; 87040; 87070; 87075; 87077; 87086; 87116; 87186; 87205; 87206; 87426; 87801; 88108; 88305; 89050; 90471; 90732; 93005; 93306; 94660; 96365; 96367; 96372; 96375; 99291; J0456; J0637; J0696; J1815; J2270; J2543; J3010; J3370; J7050; Q3014; Q4081; Q9967

== ENCOUNTER → 2022-03-23 14:17 | Outpatient (BNVA) | payer MEDICARE, OTHER, SELFPAY | PROVIDERS: PCP Family Medicine; Visit Provider Internal Medicine Critical Care Medicine | DX: J90 Pleural effusion, not elsewhere classified (principal); J96.12 Chronic respiratory failure with hypercapnia; I25.10 Atherosclerotic heart disease of native coronary artery without angina pectoris; Z95.5 Presence of coronary angioplasty implant and graft; Z87.891 Personal history of nicotine dependence | CPT/HCPCS: 71046; 99214 ==

== ENCOUNTER 2022-03-26 13:16 | Outpatient (CLI) | payer MEDICARE, OTHER, SELFPAY ==
--- NOTE | 2022-03-26 14:21 | PFTS_ITS ---
Date of Study:03/26/22 Date of Dictation: MECHANICS: Forced vital capacity (FVC) is reduced. Forced expiratory volume in one second (FEV1) is reduced. FEV1/FVC is normal. FLOW VOLUME LOOP: Narrow. LUNG VOLUMES: Total lung capacity (TLC) is reduced. Residual volume (RV) is reduced. DIFFUSING CAPACITY FOR CARBON MONOXIDE: Severely reduced. INTERPRETATION: The postbronchodilator spirometry is consistent with moderately severe restriction. There is no significant postbronchodilator response. Lung volumes are consistent with restrictive lung disease. Gas exchange (DLCO) is severely reduced. MTDD
== END 2022-03-26 13:17 | disposition home or self-care (01) ==
LOC: RT 13:19
PROVIDERS: PCP Family Medicine; Visit Provider Internal Medicine Critical Care Medicine
DX: J90 Pleural effusion, not elsewhere classified (principal)
CPT/HCPCS: 94060; 94726; 94729; J7611

== ENCOUNTER → 2022-04-15 15:40 | Outpatient (BNVA) | payer MEDICARE, OTHER, SELFPAY | PROVIDERS: PCP Family Medicine; Visit Provider Internal Medicine | DX: I25.10 Atherosclerotic heart disease of native coronary artery without angina pectoris (principal); E78.5 Hyperlipidemia, unspecified; I12.0 Hypertensive chronic kidney disease with stage 5 chronic kidney disease or end stage renal disease; E11.22 Type 2 diabetes mellitus with diabetic chronic kidney disease; N18.6 End stage renal disease; Z87.891 Personal history of nicotine dependence; Z79.4 Long term (current) use of insulin | CPT/HCPCS: 99214 ==

== ENCOUNTER 2022-04-22 21:23 | Observation (INO) | payer MEDICARE, OTHER, SELFPAY ==
[2022-04-22 21:38] VITALS: BP 142/84; PULSE 86; RESP 18; TEMP 37.1; O2SAT 98; BMI 26.3
--- NOTE | 2022-04-22 21:40 | XRR_ITS ---
PROCEDURE INFORMATION: Exam: XR Chest Exam date and time: 04/22/2022 9:56 PM Age: 72 years old Clinical indication: Pain; Chest pressure; Prior surgery; Surgery date: 6+ months; Surgery type: Pacemaker; Additional info: Chest pain TECHNIQUE: Imaging protocol: Radiologic exam of the chest. Views: 1 view. COMPARISON: CR XR chest 2V* [id number] 03/23/2022 4:13 PM FINDINGS: Lungs: The lungs are clear. Incidental left midlung calcified granuloma. Pleural spaces: Unremarkable. No pleural effusion. No pneumothorax. Heart/Mediastinum: Unremarkable. No cardiomegaly. Bones/joints: Unremarkable. Soft tissues: A right chest wall power pack has a lead ascending the right neck. XR/XR chest 1V portable [id number] IMPRESSION: No acute findings.
--- NOTE | 2022-04-22 21:41 | ECG_ITS ---
[facility] Test Date: 2022-04-23 Pat Name: Anshu Hurt Department: Room: Gender: Male Grips: : 1950 Requested By: Terrence Sharp Order Number: [id number] Murtaza MD: Lino Javier M.D. Measurements Intervals [place] Rate: 74 P: 62 IA: 240 QRS: -29 QRSD: 105 T: 77 QT: 422 QTc: 470 Interpretive Statements SINUS RHYTHM WITH FIRST DEGREE AV BLOCK BORDERLINE LEFT AXIS DEVIATION [QRS AXIS < -20] INCOMPLETE RIGHT BUNDLE BRANCH BLOCK [90+ ms QRS DURATION, TERMINAL R IN V1/V2, 40+ ms S IN I/aVL/V4/V5/V6] NONSPECIFIC T-WAVE ABNORMALITY Compared to ECG 04/22/2022 23:25:52 T-wave abnormality now present Left ventricular hypertrophy no longer present ST (T wave) deviation no longer present Electronically Signed On 04-23-2022 10:32:16 CDT by Lino Javier M.D. [email or web address]
--- NOTE | 2022-04-22 21:58 | W.ED.CHESTPA ---
HPI - Chest Pain General: Chief Complaint: Chest Pain Stated Complaint: cp, high bp Time Seen by Provider: 04/22/22 21:58 History of Present Illness: Mr. Hurt is a 72-year-old gentleman with hypertension, hyperlipidemia, chronic hypercapnic respiratory failure on BiPAP at night, recent PCI for CAD presenting to the emergency department due to chest pain. Reports prior presentation resulting in PCI approximately 6 weeks ago was actually more associated with shortness of breath. Over the past few days he has had intermittent episodes of severe heaviness in the middle of his chest. No other typical cardiac features. Denies frequent history of chest pain in the past. He reports compliance with his medication regimen. No other specific changes in health, exacerbating, or alleviating factors identified. Onset (ago): hour(s) Timing of current episode: episodic Prior episodes: No Onset: during rest Pain location: substernal Pain radiation: none Severity: moderate Quality: heaviness and dull Relieving factors: nothing Exacerbating factors: nothing Context: other Associated symptoms: Reports no associated symptoms Review of Systems General: Reports: 10 or more systems reviewed and unremarkable except in HPI and below PFSH ED PFSH: Medical History Acute hypokalemia Bilateral wheezing COPD exacerbation Coronary artery disease Depression Diabetes End stage renal disease ESRD (end stage renal disease) Essential tremor Gastroparesis Gout Hypercapnic respiratory failure Hyperlipidemia Hypertension Hypothyroidism (acquired) Lung entrapment Pancreatitis takes chronic pancrease Parkinsonian tremor Peritoneal dialysis catheter in place Pleural effusion Pneumonia Pneumonia Pulmonary nodule Stage 5 chronic kidney disease Tremor Vitiligo Weakness Surgical History History of appendectomy History of carpal tunnel release left wrist 1975 History of cholecystectomy Family History Other CAD (coronary artery disease) Cancer Diabetes Hypertension Denies family history of Stroke Social History Smoking and tobacco status: former smoker Quit status (tobacco): has quit using tobacco Year quit tobacco: 1993 Former quit date comment: 2 ppd X 20 years Alcohol intake: never Household members: spouse Marital status: Physical Exam Const: COMMON NORMALS: alert GENERAL APPEARANCE: cooperative and well developed HENMT: COMMON NORMALS: normocephalic and atraumatic HEAD & SCALP: normocephalic and atraumatic Eye: COMMON NORMALS: conjunctivae normal CONJUNCTIVA: Yes conjunctivae normal SCLERA: sclerae normal Neck/C-Spine: COMMON NORMALS: supple GENERAL: Yes trachea midline Resp: COMMON NORMALS: normal respiratory effort EFFORT & INSPECTION: Yes able to speak in complete sentences AUSCULTATION: diminished lung sounds OTHER: Supplemental oxygen in place Cardio: COMMON NORMALS: regular rate and regular rhythm RATE: regular rate RHYTHM: regular rhythm GI: COMMON NORMALS: Soft to palpation PALPATION: Yes Soft to palpation and No Tenderness to palpation present (GI) Extremity: GENERAL: Yes normal exam except as noted and No edema Neuro: COMMON NORMALS: moves all extremities SENSORIUM/ORIENTATION: Yes alert and No Orientation impaired Psych: COMMON NORMALS: mental status grossly normal and Normal thought process present THOUGHT PROCESS: Normal thought process present Course ED course: - Patient was seen and evaluated by me at bedside - Patient placed on cardiac monitors, IV access obtained - Initial evaluation notable for exam as above. - Labs and xrays personally interpreted by me. EKG appears similar to prior. No STEMI. - Labs notable for no leukocytosis, near baseline normocytic anemia. Metabolic panel consistent with end-stage renal disease on peritoneal dialysis without emergent indication for dialysis in the emergency department. Troponin elevated similar to baseline with delta troponin negative. BNP elevated however moderate range for patient and review of history. D-dimer elevated. - Imaging notable for chest x-ray with no lobar consolidation or pneumothorax. CTA negative for pulmonary embolism, small pleural effusion remains. - Upon serial reexamination after treatment the patient was similar - Based on patient history, evaluation, and testing as interpreted the most likely cause of the patient's condition is chest pain of uncertain etiology and patient who is not low risk by heart score - The results of ED evaluation were discussed with the patient including possible disposition options. In discussion including estimated risk of major adverse cardiac events patient prefers inpatient evaluation. I discussed plan for admission due to requirement for level of care not available if discharged to prevent significant worsening/deterioration. - Admitting service was contacted and Dr Duran with the hospitalist service agreed to admit the patient - Patient was admitted without further deterioration or significant events. Note: Click bubbles or prepopulated huerta in note writing are used for assistance with data collection and billing and are inherently more limited than narrative and other text portions of this note. Please use narrative for additional clinical history and defer to narrative/free test for any case of contradictory information. If information appears in only free text or click bubble it should be considered present or absent as reported. Please contact note program writer for clarifications of clinical information or contradictory information. MDM is a brief summary, contradictory or erroneous seeming information should be clarified and full note should be reviewed. Vital Signs: Vital signs: Vital Signs Temperature 98.7 F 04/22/22 21:38 Pulse Rate 53 L 04/23/22 04:00 Respiratory Rate 18 04/23/22 04:00 Blood Pressure 149/79 04/23/22 04:00 Pulse Oximetry 97 04/23/22 04:00 Oxygen Delivery Me thod 04/23/22 04:00 MDM - Chest Pain Medical Decision Making 72-year-old gentleman with history of PCI presenting with chest pain EKG appears similar to prior. Delta troponin negative. Elevated baseline troponin likely multifactorial including end-stage renal disease on peritoneal dialysis. Patient is not low risk by heart score and after discussion with cardiology service will be admitted for stress test. Medical Records I reviewed the patient's medical records. Lab Data I reviewed the patient's lab results. : 04/22/22 21:47 04/22/22 21:59 Radiology Impressions Chest X-Ray 04/22/22 21:40 IMPRESSION: No acute findings. Chest CTA 04/22/22 22:38 IMPRESSION: 1. No pulmonary embolism or pneumonia. 2. Small right pleural effusion. 3. Large upper abdominal ascites. 4. Other chronic and incidental findings as described. Laboratory Results WBC 5.9 10^3/uL (4.0-10.0) 04/22/22 21:47 RBC 3.15 10^6/uL (4.1-5.3) L 04/22/22 21:47 Hgb 9.5 g/dL (11.7-16.6) L 04/22/22 21:47 Hct 29.1 % (42.0-52.0) L 04/22/22 21:47 MCV 92.4 fl (80-94) 04/22/22 21:47 MCH 30.2 pg (28.0-34.0) 04/22/22 21:47 MCHC 32.6 g/dL (30.0-36.0) 04/22/22 21:47 RDW 15.1 % (12.1-15.1) 04/22/22 21:47 Plt Count 125 10^3/cmm (130-400) L 04/22/22 21:47 MPV 11.1 fL (7.4-10.4) H 04/22/22 21:47 Neut % (Auto) 60.3 % 04/22/22 21:47 Lymph % (Auto) 27.3 % 04/22/22 21:47 D[place]ham % (Auto) 9.0 % 04/22/22 21:47 Eos % (Auto) 2.6 % 04/22/22 21:47 Baso % (Auto) 0.5 % 04/22/22 21:47 Neut # (Auto) 3.53 10^3/uL (1.8-7.7) 04/22/22 21:47 Lymph # (Auto) 1.6 10^3/uL (0.8-4.8) 04/22/22 21:47 Dillingham # (Auto) 0.5 10^3/uL (0.2-0.9) 04/22/22 21:47 Eos # (Auto) 0.2 10^3/uL (0.0-0.8) 04/22/22 21:47 Baso # (Auto) 0.0 10^3/uL (0.0-0.1) 04/22/22 21:47 Nucleated RBC % (auto) 0 % 04/22/22 21:47 Nucleated RBCs # 0.0 /100WBC 04/22/22 21:47 D-Dimer 0.73 ug/mIFEU (0-0.59) H 04/22/22 22:14 Sodium 133 mmol/L (136-145) L 04/22/22 21:59 Potassium 4.2 mmol/L (3.5-5.1) 04/22/22 21:59 Chloride 93 mmol/L (98-107) L 04/22/22 21:59 Carbon Dioxide 22 mmol/L (22-29) 04/22/22 21:59 Anion Gap 22.2 (5-19) H 04/22/22 21:59 BUN 40 mg/dL (8-23) H 04/22/22 21:59 Creatinine 7.9 mg/dL (0.7-1.2) H* 04/22/22 21:59 GFR Calculation 6.8 mL/min (90-130) L 04/22/22 21:59 Glucose 274 mg/dL (65-115) H 04/22/22 21:59 Calculated Osmolality 296 mOsm/kg (285-295) H 04/22/22 21:59 Calcium 8.6 mg/dL (8.5-10.5) 04/22/22 21:59 Troponin T Baseline 288 ng/L (0-15) H* 04/22/22 21:59 Troponin T 120 Minute 274.4 ng/L (0-15) H 04/22/22 23:51 Delta Troponin T -13.6 ABS# (0-10) L 04/22/22 23:51 NT-Pro-B Natriuret Pep 73774 pg/mL (0-125) H 04/22/22 23:51 Discharge Plan Discharge Patient Disposition: Placed in Observation Clinical Impression: Chest pain Coding Level of Care Code ED Mint Wafer Depositor for Anatoliy Fwd Exam Comprehensive
[2022-04-22 22:16] LABS: Basophils % 0.5 %; Eosinophils # 0.2 10^3/uL (0.0-0.8); Eosinophils % 2.6 %; Hematocrit 29.1 % (42.0-52.0); Hemoglobin 9.5 g/dL (11.7-16.6); Lymphocytes # 1.6 10^3/uL (0.8-4.8); Lymphocytes % 27.3 %; Mean Corpuscular HGB Conc 32.6 g/dL (30.0-36.0); Mean Corpuscular Hemoglobin 30.2 pg (28.0-34.0); Mean Corpuscular Volume 92.4 fl (80-94); Mean Platelet Volume 11.1 fL (7.4-10.4); Monocytes # 0.5 10^3/uL (0.2-0.9); Neutrophils # 3.53 10^3/uL (1.8-7.7); Neutrophils % 60.3 %; Nucleated Red Blood Cells % 0 %; Platelet Count 125 10^3/cmm (130-400); Red Blood Count 3.15 10^6/uL (4.1-5.3); Red Cell Distribution Width 15.1 % (12.1-15.1); White Blood Count 5.9 10^3/uL (4.0-10.0)
[2022-04-22] MEDS: aspirin 81 mg Chew Tablet 324 MG PO (22:23)
[2022-04-22] MEDS: lidocaine 2% viscous 15 ML, aluminum-mag hydrox-simethicon 30 ML, sucralfate oral liq 1 GM PO (22:24)
[2022-04-22 22:29] VITALS: BP 189/105; PULSE 95; RESP 18; O2SAT 97
[2022-04-22 22:36] LABS: D Dimer 0.73 ug/mIFEU (0-0.59)
--- NOTE | 2022-04-22 22:38 | CTR_ITS ---
PROCEDURE INFORMATION: Exam: CTA Chest With Contrast Exam date and time: 04/22/2022 11:10 PM Age: 72 years old Clinical indication: Pain and abnormal findings; Abnormal diagnostic tests; Elevated d-dimer; Shortness of breath; Chest pressure; Prior surgery; Surgery type: Coronary stents. Gb; Patient HX: Chest pain with SOB. Elevated d dimer. ; Additional info: SOB, cp, elevated ddimer TECHNIQUE: Imaging protocol: Computed tomographic angiography of the chest with contrast. 3D rendering (Not supervised by radiologist): MIP and/or 3D reconstructed images were created by the technologist. Radiation optimization: All CT scans at this facility use at least one of these dose optimization techniques: automated exposure control; mA and/or kV adjustment per patient size (includes targeted exams where dose is matched to clinical indication); or iterative reconstruction. Contrast material: OMNI 350; Contrast volume: 85 ml; Contrast route: INTRAVENOUS (IV); COMPARISON: CT angio chest abdomen pelvis 03/09/2022 5:49 PM RADIATION DOSE METRICS: Total DLP (mGy-cm): 345.1 FINDINGS: Tubes, catheters and devices: Implanted power pack in the right chest wall. A lead ascends the right neck. Pulmonary arteries: Overall exam quality is good for evaluating the pulmonary arteries. There are no intraluminal filling defects to indicate pulmonary embolism. Aorta: Unremarkable. No aortic aneurysm. No aortic dissection. Lungs: Scattered bands of atelectasis and scarring in both lungs. There are bibasilar hazy opacities most likely due to dependent atelectasis but could be due to interstitial edema. Pleural spaces: Small right pleural effusion. Heart: There is extensive calcified plaque in the coronary arteries. Lymph nodes: Unremarkable. No enlarged lymph nodes. Intraperitoneal space: There is large upper abdominal ascites of indeterminate cause. Bones/joints: Unremarkable. No acute fracture. Soft tissues: See Tubes, catheters and devices finding. Other findings: Incidental calcified granulomas. CT/CT angio chest PE protcl [id number] IMPRESSION: 1. No pulmonary embolism or pneumonia. 2. Small right pleural effusion. 3. Large upper abdominal ascites. 4. Other chronic and incidental findings as described.
[2022-04-22 22:42] LABS: Anion Gap 22.2 (5-19); Blood Urea Nitrogen 40 mg/dL (8-23); Calcium 8.6 mg/dL (8.5-10.5); Carbon Dioxide 22 mmol/L (22-29); Chloride 93 mmol/L (98-107); Glomerular Filtration Rate 6.8 mL/min (90-130); Glucose 274 mg/dL (65-115); Osmolality Calculated 296 mOsm/kg (285-295); Potassium 4.2 mmol/L (3.5-5.1); Sodium 133 mmol/L (136-145)
[2022-04-22 22:52] VITALS: BP 191/128
[2022-04-22 22:59] LABS: Troponin(5th) Baseline 288 ng/L (0-15)
[2022-04-22 23:22] VITALS: BP 211/104; PULSE 91; RESP 18; O2SAT 100
[2022-04-22] MEDS: iohexol 350 mg/mL 100 mL Btl IV (23:23)
[2022-04-22] MEDS: labetalol 5 mg/mL SDV 20mL 10 MG IVP (23:24)
--- NOTE | 2022-04-22 23:25 | ECG_ITS ---
[facility] Test Date: 2022-04-22 Pat Name: Anshu Hurt Department: Room: Gender: Male Surgical Lead: : 1950 Requested By: Terrence Sharp Order Number: [id number] Murtaza MD: Lino Javier M.D. Measurements Intervals Laura Rate: 87 P: 56 KS: 226 QRS: -35 QRSD: 109 T: 69 QT: 388 QTc: 467 Interpretive Statements SINUS RHYTHM WITH FIRST DEGREE AV BLOCK LEFT AXIS DEVIATION [QRS AXIS < -30] INCOMPLETE RIGHT BUNDLE BRANCH BLOCK [90+ ms QRS DURATION, TERMINAL R IN V1/V2, 40+ ms S IN I/aVL/V4/V5/V6] LEFT VENTRICULAR HYPERTROPHY AND ST-T CHANGE [VOLTAGE CRITERIA PLUS ST/T ABNORMALITY] Compared to ECG 03/10/2022 03:28:17 Incomplete right bundle-branch block now present Left ventricular hypertrophy now present ST (T wave) deviation now present Electronically Signed On 04-23-2022 10:41:41 CDT by Lino Javier M.D. [id number]
[2022-04-22 23:52] VITALS: BP 189/118; PULSE 77; RESP 18; O2SAT 100
[2022-04-23] VITALS (14 sets, daily range): BP systolic 149–190; BP diastolic 73–100; PULSE 53–83; RESP 15–19; TEMP 36.7; O2SAT 96–100; BMI 26.4
[2022-04-23 00:28] LABS: Troponin 5 2HR 274.4 ng/L (0-15); Troponin 5 2HR Delta -13.6 ABS# (0-10)
[2022-04-23 01:30] LABS: NT Pro B Type Natriuretic Pept 23572 pg/mL (0-125)
--- NOTE | 2022-04-23 04:00 | USCV_ITS ---
Anshu Hurt Age: 72 Gender: M : 1950 Exam Date: 04/23/2022 04:43 Ordering Phys: Rony Duran MD Technologist: DIANE [place] [facility] [place]ication: chest pain, history of cardiac stenting. BP: 149 / 79 HR: 59 Rhythm: Sinus Technical Quality: Adequate MEASUREMENTS (Male / Female) Normal Values 2D ECHO LV Diastolic Diameter PLAX 4.6 cm 4.2 - 5.9 / 3.9 - 5.3 cm LV Systolic Diameter PLAX 2.8 cm IVS Diastolic Thickness 1.5 cm 0.6 - 1.0 / 0.6 - 0.9 cm IVS Systolic Thickness 2.5 cm LVPW Diastolic Thickness 1.3 cm 0.6 - 1.0 / 0.6 - 0.9 cm LVPW Systolic Thickness 1.9 cm LVOT Diameter 2.2 cm LV Ejection Fraction 2D Teich 68.2 % LV Ejection Fraction MOD 2C 57.0 % LV Ejection Fraction 2C AL 59.9 % LA Diameter 5.1 cm LA Width 4.6 cm LA Height 6.0 cm RA Width 3.9 cm RA Height 4.6 cm Aorta at Sinotubular Diameter 3.2 cm IVC Diameter 1.3 cm M-MODE Aortic Annulus Diameter 3.0 cm LA Ao Ratio MM 1.7 MV E Point Septal Separation 0.4 cm DOPPLER AV Peak Velocity 125.0 cm/s LVOT Peak Velocity 65.0 cm/s AV Area Cont Eq vti 1.9 cm squared AV Area Cont Eq pk 1.9 cm squared MV Peak Velocity 118.0 cm/s MV Area PHT 3.0 cm squared Mitral E to A Ratio 0.7 MV E' Velocity 53.4 cm/s Mitral E to MV E' Ratio 12.2 Mitral E to LV E' Lateral Ratio 9.2 Mitral E to LV E' Septal Ratio 18.0 TR Peak Velocity 209.7 cm/s TR Peak Gradient 17.6 mmHg TV Peak E Velocity 53.0 cm/s Right Atrial Pressure 10.0 mmHg Pulmonary Artery Systolic Pressu 27.6 mmHg PV Peak Velocity 114.0 cm/s RV Acceleration Time 0.1 s RV Ejection Time 0.4 s RV AcT/ET 0.3 FINDINGS Left Ventricle LV is normal in size. LV systolic function is normal with EF of 50-55%. No regional wall motion abnormalities are seen. Grade 1 diastolic dysfunction. Right Ventricle Normal in size and function Right Atrium Normal in size Left Atrium Left atrium is dilated. Mitral Valve Mitral valve is thickened. Mild mitral regurgitation. Aortic Valve Aortic valve is thickened. Trace aortic regurgitation. No significant aortic stenosis Tricuspid Valve Mild tricuspid regurgitation. Pulmonary artery systolic pressure is normal. Pulmonic Valve Not well-visualized. Pericardium Normal. Pleural effusion is seen Aorta Normal in size IVC CONCLUSIONS LV systolic function is normal with EF of 50-55%. Grade 1 diastolic dysfunction. The left atrium is dilated. Mitral valve is thickened. Mild mitral regurgitation. Aortic valve is thickened. Trace aortic regurgitation. Mild tricuspid regurgitation. Pleural effusion is noted. Compared to prior echocardiogram from 03/09/2022, LV systolic function appears to be slightly improved Lino Javier MD (Electronically Signed) Final Date: 23 April 2022 09:42 S
--- NOTE | 2022-04-23 04:07 | PM.HP ---
Providers/Chief Complaint Primary Care Provider: Irene Jones Chief Complaint: cp, high bp History of Present Illness Anshu Hurt is a 72 year old male end-stage renal disease on peritoneal dialysis, history of CAD status post 4 stents, history of Parkinson's disease status post deep brain stimulator, hypothyroidism hypertension hyperlipidemia, type 2 diabetes mellitus recent hospitalization for acute hypoxic respiratory failure secondary to right pleural effusion, concern for lung entrapment who presents [facility] for chest pain. Patient tells me that back in February he had 2 stents placed at [facility], a week after he had significant sinus bradycardia, requiring another stent and balloon angioplasty [facility] [place]. Since that he has had a significant hospitalization since above, he recently followed up with cardiology has been relatively stable. He tells me that yesterday he started to develop severe substernal chest pain, a band across his chest, with associated shortness of breath, no lightheadedness, no diaphoresis, nonradiating. He waited to come to the emergency room, here in the emergency room he is found to have a troponin to 288, EKG no acute ST-T wave changes, he has not done peritoneal dialysis early this morning as he was here in the hospital. Currently chest pain-free, no shortness of breath, no nausea, vomiting Review of Systems Const: Denies: fever(s) Eyes: Denies: change in vision Card: Reports: chest pain Resp: Reports: dyspnea GI: Denies: abdominal pain Medications/Allergies Home Medications Medication Instructions Recorded Confirmed Last Taken Type insulin aspart U-100 100 unit/mL See Rx Instructions .Route .COMPLEX 09/05/19 04/15/22 03/09/22 History (3 mL) subcutaneous pen (Novolog Flexpen U-100 Insulin aspart) potassium chloride 20 mEq 20 meq PO QAM 09/05/19 04/15/22 03/09/22 History tablet,extended release insulin glargine 100 unit/mL (3 See Rx Instructions .Route .COMPLEX 10/24/20 04/15/22 03/09/22 History mL) subcutaneous pen (Basaglar KwikPen U-100 Insulin) magnesium oxide 400 mg (241.3 mg 400 mg PO QAM 10/24/20 04/15/22 03/09/22 History magnesium) tablet (MagOx) albuterol sulfate 90 mcg/actuation 2 inh inhalation Q6H PRN shortness 02/17/22 04/15/22 03/09/22 Rx aerosol inhaler of breath or wheezing #8 grams calcium acetate(phosphat bind) 667 See Rx Instructions .Route .COMPLEX 02/18/22 04/15/22 03/09/22 History mg capsule cholecalciferol (vitamin D3) 1,250 50,000 unit PO Q7D 02/18/22 04/15/22 03/04/22 History mcg (50,000 unit) capsule levothyroxine 150 mcg tablet 150 mcg PO QAM 02/18/22 04/15/22 03/09/22 History (Euthyrox) civmyi-njopxcys-nvkrbns See Rx Instructions .Route .COMPLEX 02/18/22 04/15/22 03/09/22 History 12,000-38,000-60,000 unit capsule,delayed rel (Creon) pregabalin 150 mg capsule (Lyrica) 150 mg PO BEDTIME 02/18/22 04/15/22 03/08/22 History sertraline 50 mg tablet 75 mg PO QPM 02/18/22 04/15/22 03/08/22 History aspirin 81 mg tablet,delayed 81 mg PO BEDTIME #120 tabs 02/21/22 04/15/22 03/09/22 Rx release atorvastatin 40 mg tablet 40 mg PO QPM #90 tabs 02/21/22 04/15/22 03/08/22 Rx clopidogrel 75 mg tablet 75 mg PO DAILY@2100 #120 tabs 02/21/22 04/15/22 03/09/22 Rx pantoprazole 40 mg tablet,delayed 40 mg PO DAILY 03/23/22 04/15/22 Unknown History release nitroglycerin 0.4 mg sublingual 0.4 mg sublingual Q5M PRN Chest 04/15/22 04/15/22 Unknown Rx tablet (Nitrostat) Pain #25 tabs Allergies Allergy/AdvReac Type Severity Reaction Status Date / Time CARBIDOPA-LEVODOPA Allergy Unknown Uncoded 04/15/22 15:57 PFSH Acute PFSH: Medical History Acute hypokalemia Bilateral wheezing COPD exacerbation Coronary artery disease Depression Diabetes End stage renal disease ESRD (end stage renal disease) Essential tremor Gastroparesis Gout Hypercapnic respiratory failure Hyperlipidemia Hypertension Hypothyroidism (acquired) Lung entrapment Pancreatitis takes chronic pancrease Parkinsonian tremor Peritoneal dialysis catheter in place Pleural effusion Pneumonia Pneumonia Pulmonary nodule Stage 5 chronic kidney disease Tremor Vitiligo Weakness Surgical History History of appendectomy History of carpal tunnel release left wrist 1975 History of cholecystectomy Family History Other CAD (coronary artery disease) Cancer Diabetes Hypertension Denies family history of Stroke Social History Smoking and tobacco status: former smoker Quit status (tobacco): has quit using tobacco Year quit tobacco: 1993 Former quit date comment: 2 ppd X 20 years Alcohol intake: never Household members: spouse Marital status: Vitals/I&O/Wt Last Vital Signs Temp 98.7 F 04/22/22 21:38 Pulse 76 04/23/22 02:42 Resp 18 04/23/22 02:42 BP 167/86 04/23/22 02:42 Pulse Ox 98 04/23/22 02:42 O2 Del Method 04/22/22 22:29 Weight last 48 hrs Weight 85.729 kg Physical Exam Const: COMMON NORMALS: no acute distress and patient oriented x3 HENMT: COMMON NORMALS: normocephalic HEAD & SCALP: normocephalic Neck/C-Spine: COMMON NORMALS: no JVD Resp: COMMON NORMALS: normal respiratory effort, No retractions, No use of accessory muscles and clear to auscultation bilaterally AUSCULTATION: clear to auscultation bilaterally Cardio: COMMON NORMALS: no JVD, regular rate, regular rhythm, S1 normal heart sound present and S2 normal heart sound present RATE: regular rate RHYTHM: regular rhythm HEART SOUNDS: S1 normal heart sound present and S2 normal heart sound present GI: COMMON NORMALS: Normal to inspection, nondistended, normoactive bowel sounds present, Soft to palpation, non-tender, no masses and no bruits PALPATION: Yes Soft to palpation and Yes No hepatosplenomegaly present OTHER: PD catheter in place Extremity: COMMON NORMALS: no calf tenderness and no pedal edema Neuro: COMMON NORMALS: patient oriented x3, CN's II-XII intact bilaterally and moves all extremities Psych: COMMON NORMALS: mental status grossly normal Data : 04/22/22 21:47 04/22/22 21:59 A&P Assessment and plan (1) Chest pain: Status: Acute (2) Hyperlipidemia: Status: Acute Qualifiers: Hyperlipidemia type: unspecified Qualified Code(s): E78.5 - Hyperlipidemia, unspecified (3) Hypertension: Status: Acute Qualifiers: Hypertension type: essential hypertension Qualified Code(s): I10 - Essential (primary) hypertension (4) Coronary artery disease: Status: Acute Plan Chest pain -Seems atypical in nature -Did have 2 stents placed in February 2022 here at [facility] -Then a week later had sinus bradycardia requiring hospitalization at [facility] requiring another stent placement with balloon angioplasty -Has been taking all his medications as prescribed, aspirin, Plavix -Baseline troponin is 288, his baseline troponin is in the 300s -120-minute to 74, delta 13.7 -EKG no acute ST-T wave changes -Creatinine 7.9, he did not do dialysis this morning -Currently chest pain-free Plan -Admit to general medical floors -Continue aspirin, statin, Plavix -Telemetry monitoring -Serial EKGs, serial troponins, telemetry monitoring -Repeat cardiac echo -We will discuss with cardiology in the morning, likely can discharge -Type 2 diabetes mellitus, low-dose sliding scale -PD dialysis, will consult nephrology if he requires hospitalization beyond 24 hours -Hyperlipidemia, continue medications -History of chronic respiratory failure, currently denying shortness of breath, continue to monitor -Full code -Lovenox for DVT prophylaxis Attestations Medical Necessity Statement*: Patient requires hospitalization, outpatient observation, for chest pain Coding Level of Care Code Acute Seo Strategist for [facility] Diagnoses Chest pain R07.9 Hyperlipidemia E78.5 Hyperlipidemia type: unspecified Hypertension I10 Hypertension type: essential hypertension Coronary artery disease I25.10
[2022-04-23 04:36] LABS: Chol HDL Ratio 3.51 mg/dL (1.0-5.00); Cholesterol 123 mg/dL (0-200); HDL Cholesterol 35 mg/dL (60-100); LDL Cholesterol Calculated 34 mg/dL (50-129); LDL HDL Ratio 0.97 RATIO (0.00-3.22); Thyroid Stimulating Hormone 0.74 uIU/mL (0.27-4.20); Triglycerides 271 mg/dL (0-150)
[2022-04-23] MEDS: enoxaparin 40 mg/0.4 mL Syringe SUBCUT (05:39)
[2022-04-23] MEDS: magnesium oxide 400 mg tablet PO (07:33)
[2022-04-23] MEDS: levothyroxine 150 mcg Tablet PO (07:33)
[2022-04-23 07:42] LABS: Glucose Point of Care 121 mg/dL (70-110)
[2022-04-23 08:10] LABS: Troponin 5 6HR 279.1 ng/L (0-15); Troponin 5 6HR Delta -8.9 ng/L (0-12)
[2022-04-23] MEDS: pantoprazole DR 40 mg Tablet PO (08:26)
[2022-04-23] MEDS: calcium acetate 667 mg Capsule PO (09:43)
[2022-04-23] MEDS: lipase-protease-amylase Capsule 5 EACH PO ×3 (09:44→17:48)
--- NOTE | 2022-04-23 10:49 | ECG_ITS ---
[facility] Test Date: 2022-04-23 Pat Name: Anshu Hurt Department: Room: Gender: Male Head Waitress: : 1950 Requested By: Terrence Sharp Order Number: [id number] Murtaza MD: Lino Javier M.D. Measurements Intervals Homer Rate: 74 P: 34 MA: 222 QRS: -21 QRSD: 90 T: 68 QT: 409 QTc: 455 Interpretive Statements SINUS RHYTHM WITH FIRST DEGREE AV BLOCK BORDERLINE LEFT AXIS DEVIATION [QRS AXIS < -20] MODERATE VOLTAGE CRITERIA FOR LVH, CONSIDER NORMAL VARIANT [MEETS CRITERIA IN ONE OF: R(aVL), S(V1), R(V5), R(V5/V6)+S(V1)] NONSPECIFIC T-WAVE ABNORMALITY Compared to ECG 04/23/2022 01:45:33 Incomplete right bundle-branch block no longer present T-wave abnormality still present Electronically Signed On 04-23-2022 16:18:10 CDT by Lino Javier M.D. [id number]
[2022-04-23 11:38] LABS: Glucose Point of Care 205 mg/dL (70-110)
--- NOTE | 2022-04-23 12:00 | PC.NURSE ---
PT FAMILY PERFORMED PD WITH PT. 2.5 MEQ CALCIUM AND 2.5% DEXTROSE SOLUTION
--- NOTE | 2022-04-23 12:41 | P.CONIM_ITS ---
Providers/Reason For Consult Consulting Physician/Specialty*: sherita bruce md / telenephrology Reason for Consult*: ESRD care Requesting Physician: Dr Suleman Hemphill and Dr Rony Duran Attending Physician: DR Harsh Hemphill Primary Care Provider: Irene Jones History of Present Illness History of Present Illness Anshu Hurt is a 72 year old male ?end-stage renal disease on peritoneal dialysis, CAD status post 4 stents, Parkinson's disease status post deep brain stimulator, hypothyroidism hypertension, hyperlipidemia, type 2 diabetes mellitus. H/O pleural effusions. multiple recent hospitalizations for CP/ CAD- stents and bradycardia, pleural effusions and concern for lung entrapment. Pt presented yesterday w/ severe substernal chest pain associated w/ shortness of breath. In Er + trop and HTN. SOB and CP improving. ESRD- on CCPD 2 x 6 l bags and a 2l bag w/ a last fill of icodextran. Review of Systems Narrative: weak, sob, cp, RAINEY, orthopnea. no vyas, no fevers, no diarrhea, no edema or leg pain. pts does his dialysis Medications/Allergies Home Medications Medication Instructions Recorded Confirmed Last Taken Type insulin aspart U-100 100 unit/mL See Rx Instructions .Route .COMPLEX 09/05/19 04/23/22 03/09/22 History (3 mL) subcutaneous pen (Novolog Flexpen U-100 Insulin aspart) potassium chloride 20 mEq 20 meq PO QAM 09/05/19 04/23/22 03/09/22 History tablet,extended release insulin glargine 100 unit/mL (3 See Rx Instructions .Route .COMPLEX 10/24/20 04/23/22 03/09/22 History mL) subcutaneous pen (Basaglar KwikPen U-100 Insulin) magnesium oxide 400 mg (241.3 mg 400 mg PO QAM 10/24/20 04/23/22 03/09/22 History magnesium) tablet (MagOx) albuterol sulfate 90 mcg/actuation 2 inh inhalation Q6H PRN shortness 02/17/22 04/23/22 03/09/22 Rx aerosol inhaler of breath or wheezing #8 grams calcium acetate(phosphat bind) 667 See Rx Instructions .Route .COMPLEX 02/18/22 04/23/22 03/09/22 History mg capsule cholecalciferol (vitamin D3) 1,250 50,000 unit PO Q7D 02/18/22 04/23/22 03/04/22 History mcg (50,000 unit) capsule levothyroxine 150 mcg tablet 150 mcg PO QAM 02/18/22 04/23/22 03/09/22 History (Euthyrox) [id number]-[id number] See Rx Instructions .Route .COMPLEX 02/18/22 04/23/22 03/09/22 History 12,000-38,000-60,000 unit capsule,delayed rel (Creon) pregabalin 150 mg capsule (Lyrica) 150 mg PO BEDTIME 02/18/22 04/23/22 03/08/22 History sertraline 50 mg tablet 75 mg PO QPM 02/18/22 04/23/22 03/08/22 History aspirin 81 mg tablet,delayed 81 mg PO BEDTIME #120 tabs 02/21/22 04/23/22 03/09/22 Rx release atorvastatin 40 mg tablet 40 mg PO QPM #90 tabs 02/21/22 04/23/22 03/08/22 Rx clopidogrel 75 mg tablet 75 mg PO DAILY@2100 #120 tabs 02/21/22 04/23/22 03/09/22 Rx pantoprazole 40 mg tablet,delayed 40 mg PO DAILY 03/23/22 04/23/22 Unknown History release nitroglycerin 0.4 mg sublingual 0.4 mg sublingual Q5M PRN Chest 04/15/22 04/23/22 Unknown Rx tablet (Nitrostat) Pain #25 tabs amlodipine 10 mg tablet 10 mg PO DAILY 04/23/22 04/23/22 Unknown History calcitriol 0.5 mcg capsule 0.5 mcg PO DAILY 04/23/22 04/23/22 Unknown History zolpidem 5 mg tablet 5 mg PO BEDTIME 04/23/22 04/23/22 Unknown History Allergies Allergy/AdvReac Type Severity Reaction Status Date / Time CARBIDOPA-LEVODOPA Allergy Unknown Unknown Uncoded 04/23/22 08:11 Current Medications Generic Name Dose Route Start Last Admin Trade Name Freq PRN Reason Stop Dose Admin Lipase/Protease/Amylase 5 each 04/23/22 08:00 04/23/22 09:44 Bbqehg-Rajlblvu-Bxcxuqf Capsule PO 5 each TIDWM SHAMAR Administration Calcium Acetate 667 mg 04/23/22 09:00 04/23/22 09:43 Calcium Acetate 667 Mg Capsule PO 667 mg DAILY SHAMAR Administration Enoxaparin Sodium 40 mg 04/23/22 04:00 04/23/22 05:39 Enoxaparin 40 Mg/0.4 Ml Syringe SUBCUT 40 mg Q24H SHAMAR Administration Insulin Human Lispro 0 unit 04/23/22 08:00 04/23/22 07:43 Insulin Lispro 100 Unit/1 Ml SUBCUT Not Given T[facility] Protocol Levothyroxine Sodium 150 mcg 04/23/22 06:00 04/23/22 07:33 Levothyroxine 150 Mcg Tablet PO 150 mcg QAM SHAMAR Administration Magnesium Oxide 400 mg 04/23/22 06:00 04/23/22 07:33 Magnesium Oxide 400 Mg Tablet PO 400 mg QAM SHAMAR Administration Pantoprazole Sodium 40 mg 04/23/22 09:00 04/23/22 08:[address] 40 Mg Tablet PO 40 mg DAILY SHAMAR Administration PFSH Acute PFSH: Medical History (Updated 04/23/22 @ 12:42 by Sonido Bruce MD) Acute hypokalemia Bilateral wheezing COPD exacerbation Coronary artery disease Depression Diabetes End stage renal disease ESRD (end stage renal disease) Essential tremor Gastroparesis Gout Hypercapnic respiratory failure Hyperlipidemia Hypertension Hypothyroidism (acquired) Lung entrapment Pancreatitis takes chronic pancrease Parkinsonian tremor Peritoneal dialysis catheter in place Pleural effusion Pneumonia Pneumonia Pulmonary nodule Stage 5 chronic kidney disease Tremor Vitiligo Weakness Surgical History History of appendectomy History of carpal tunnel release left wrist 1975 History of cholecystectomy Family History Other CAD (coronary artery disease) Cancer Diabetes Hypertension Denies family history of Stroke Social History Smoking and tobacco status: former smoker Quit status (tobacco): has quit using tobacco Year quit tobacco: 1993 Former quit date comment: 2 ppd X 20 years Alcohol intake: never Household members: spouse Marital status: Vitals/I&O/Wt Last Vital Signs Temp 98.7 F 04/22/22 21:38 Pulse 75 04/23/22 08:29 Resp 15 09/15/22 08:29 BP 156/79 04/23/22 08:29 Pulse Ox 99 04/23/22 08:29 O2 Del Method 04/23/22 08:29 Weight last 48 hrs Weight 85.729 kg Physical Exam Narrative: comfortable NARD vs noted heent- nc/at, eomi, anicteric neck supple lung dull bases heart reg, +TALISHA abd soft, nt, nd, + bs, + tenkoff catheter ext no edema neuro- a,a, o x 3, tremors Data : 04/22/22 21:47 04/22/22 21:59 A&P Assessment and plan (1) ESRD (end stage renal disease): 72? yr old man CAD s/p recent stents, IDDM, ESRD on CCPD for 2.5? yrs. He normally does 10 hrs CCPD w/ two 6 liter bags- usually 1.25% and 2.5 % gluc and a 2 l yellow bag and daytime icodextran.? Pt is here w/ CP and sob. he had a CTA that was negative for a PE 1. recent CAD and stents - add ARB 2. CP per medicine and cardiology -bnp 57061- normal cxr review echo 3. ESRD- ? will continue his home CCPD allow his to perform his CCPD 4.? normal wbc 5. anemia- iron sat was low in march, w/ ferritin 1689- repeat 6. thrombocytopenia- 7. hyponatremia- monitor na w/ dialysis -normal tsh -can be from zoloft 8. DM control per medicine 9. renal bone mineral metabolism-check vit d, ca, phos, iPTH seen and examined w/?RN- telehealth visit informed consent for Telehealth and for dialysis obtained discussed w/ pt and his time spent > 50 min Status: Acute Plan see above Consult Attestations 2 Medical Necessity Statement: htn, esrd, CHF, CAD Time Spent in Patient Care: Greater than 35 minutes (>than 50% of time spent in counselling and/or direct pt care on unit) . Coding Level of Care Code Acute [employer] Supervisor for Anatoliy Hickman Diagnoses ESRD (end stage renal disease) N18.6
[2022-04-23] MEDS: insulin lispro 100 unit/1 mL SUBCUT ×2 (13:02→17:43)
[2022-04-23 13:35] LABS: Uric Acid 5.7 mg/dL (3.4-7.0)
[2022-04-23] MEDS: losartan 50 mg Tablet PO (14:13)
[2022-04-23 14:36] LABS: Hepatitis C Virus Antibody Non-Reactive (Nonreactive)
[2022-04-23 17:02] LABS: Glucose Point of Care 185 mg/dL (70-110)
[2022-04-23] MEDS: sertraline 50 mg Tablet 75 MG PO (17:44)
[2022-04-23] MEDS: acetaminophen 325 mg Tablet 650 MG PO (17:46)
[2022-04-23] MEDS: atorvastatin 40 mg Tablet PO (17:58)
--- NOTE | 2022-04-23 18:04 | ECG_ITS ---
[facility] Test Date: 2022-04-24 Pat Name: Anshu Hurt Department: Room: 268 Gender: Male Immunologist: Kylah NamJosé : 1950 Requested By: Suleman Hemphill Order Number: [id number] Murtaza MD: Gladys Hwang M.D. Interpretive Statements NAME OF STUDY: LEXISCAN SESTAMIBI STRESS TEST INDICATION: Chest Pain PROCEDURE: At the baseline, the blood pressure was 162/92 mmHg with a heart rate of 89 beats per minute. The electrocardiogram showed normal sinus rhythm, with normal ST and T's. The Lexiscan was infused over a period of 20 seconds. A total of 0.4 milligrams of Lexiscan was infused. The stress phase was continued for a total of 5 minutes. Heart rate at the end of the stress phase was 78 bpm with a blood pressure of 145/74 mmHg. The EKG at the peak infusion revealed sinus rhythm with no significant ST-T wave changes. Study was terminated protocol completion. Sestamibi was injected 20 seconds after the Lexiscan infusion. Blood pressure at the end of the recovery phase was 158/75 mmHg with a heart rate of 81 beats per minute. CONCLUSION: 1. No significant EKG changes with the LexiScan infusion. 2. No LexiScan induced chest pain or cardiac arrhythmia. 3. Normal blood pressure and heart rate response. 4. Sestamibi/sestamibi perfusion scan pending; see separate report. Electronically Signed On 04-24-2022 13:53:53 CDT by Gladys Hwang M.D. [email or web address]
--- NOTE | 2022-04-23 18:16 | P.PN_ITS ---
Subjective Subjective: Patient was seen mild will times throughout the day, has continued to complain of substernal pressure-like chest pain. To settle the debate we will order a stress test tomorrow in the morning, 2D ec ho has been done: Results appreciated N.p.o. after midnight. Medications: Medication Review Details: Generic Name Dose Route Start Last Admin Trade Name Jasvirq PRN Reason Stop Dose Admin Acetaminophen 650 mg 04/23/22 04:00 04/23/22 17:46 Acetaminophen 32 5 Mg Tablet PO 650 mg Q6H PRN Administration Mild/Mod Pain Or Temp >/= 101 Lipase/Protease/Am ylase 5 each 04/23/22 08:00 04/23/22 17:48 Lipase-Protease- Amylase Capsule PO 5 each TIDWM SHAMAR Administration Atorvastatin Calci um 40 mg 04/23/22 18:00 04/23/22 17:58 Atorvastatin 40 Mg Tablet PO 40 mg QPM SHAMAR Administration Calcium Acetate 667 mg 04/23/22 09:00 04/23/22 09:43 Calcium Acetate 667 Mg Capsule PO 667 mg DAILY SHAMAR Administration Enoxaparin Sodium 40 mg 04/23/22 04:00 04/23/22 05:39 Enoxaparin 40 Mg /0.4 Ml Syringe SUBCUT 40 mg Q24H SHAMAR Administration Insulin Human Lisp ro 0 unit 04/23/22 08:00 04/23/22 17:43 Insulin Lispro 1 00 Unit/1 Ml SUBCUT 4 unit TIDWM SHAMAR Administration Protocol Levothyroxine Sodi um 150 mcg 04/23/22 06:00 04/23/22 07:33 Levothyroxine 15 0 Mcg Tablet PO 150 mcg QAM SHAMAR Administration Losartan Potassium 50 mg 04/23/22 13:05 04/23/22 14:13 Losartan 50 Mg T ablet PO 50 mg DAILY SHAMAR Administration Magnesium Oxide 400 mg 04/23/22 06:00 04/23/22 07:33 Magnesium Oxide 400 Mg Tablet PO 400 mg QAM SHAMAR Administration Pantoprazole Sodiu m 40 mg 04/23/22 09:00 04/23/22 08:[address] 40 Mg Tablet PO 40 mg DAILY SHAMAR Administration Sertraline HCl 75 mg 04/23/22 18:00 04/23/22 17:44 Sertraline 50 Mg Tablet PO 75 mg QPM SHAMAR Administration Vitals/I&O/Wt Last Vital Signs Temp 98.7 F 04/22/22 21:38 Pulse 78 04/23/22 14:36 Resp 19 H 04/23/22 14:36 BP 165/100 04/23/22 14:36 Pulse Ox 98 04/23/22 16:54 O2 Del Method 04/23/22 16:54 Weight last 48 hrs Weight 86.183 kg Weight 85.729 kg Physical Exam Const: COMMON NORMALS: patient oriented x3 Resp: COMMON NORMALS: normal respiratory effort, No retractions, No use of accessory muscles and clear to auscultation bilaterally EFFORT & INSPECTION: Yes symmetric chest movement AUSCULTATION: clear to auscultation bilaterally Cardio: COMMON NORMALS: regular rate, regular rhythm, S1 normal heart sound present, S2 normal heart sound present, No gallops present (Cardio), No murmurs present (Cardio), No rub (Cardio) and Peripheral pulses 2+ throughout RATE: regular rate RHYTHM: regular rhythm HEART SOUNDS: S1 normal heart sound present and S2 normal heart sound present PERIPHERAL PULSES: Peripheral pulses 2+ throughout GI: COMMON NORMALS: Normal to inspection, nondistended, normoactive bowel sounds present, Soft to palpation, non-tender, No hepatosplenomegaly present and no masses AUSCULTATION: Yes normoactive bowel sounds PALPATION: Yes Soft to palpation and Yes No hepatosplenomegaly present RECTAL EXAM: Yes deferred Extremity: COMMON NORMALS: no clubbing, cyanosis or edema and no pedal edema Neuro: COMMON NORMALS: patient oriented x3 Data : 04/22/22 21:47 04/22/22 21:59 A&P Assessment and plan (1) Chest pain: Status: Acute (2) Hyperlipidemia: Status: Acute Qualifiers: Hyperlipidemia type: unspecified Qualified Code(s): E78.5 - Hyperlipidemia, unspecified (3) Hypertension: Status: Acute Qualifiers: Hypertension type: essential hypertension Qualified Code(s): I10 - Essential (primary) hypertension (4) Coronary artery disease: Status: Acute Plan Chest pain -Seems atypical in nature -Did have 2 stents placed in February [address] [facility] -Then a week later had sinus bradycardia requiring hospitalization at [place] requiring another stent placement with balloon angioplasty -Has been taking all his medications as prescribed, aspirin, Plavix -Baseline troponin is 288, his baseline troponin is in the 300s -120-minute to 74, delta 13.7 -EKG no acute ST-T wave changes -Creatinine 7.9, he did not do dialysis this morning -Currently chest pain-free Plan -Admit to general medical floors -Continue aspirin, statin, Plavix -Telemetry monitoring -Serial EKGs, serial troponins, telemetry monitoring -Repeat cardiac echo -We will discuss with cardiology in the morning, likely can discharge -Type 2 diabetes mellitus, low-dose sliding scale -PD dialysis, will consult nephrology if he requires hospitalization beyond 24 hours -Hyperlipidemia, continue medications -History of chronic respiratory failure, currently denying shortness of breath, continue to monitor -Full code -Lovenox for DVT prophylaxis Attestations Medical Necessity Statement*: Patient is to in hospital for management of chest pain. Coding Level of Care Code Acute Calendar Control Clerk Blood Bank for Anatoliy Hickman Diagnoses Chest pain R07.9 Hyperlipidemia E78.5 Hyperlipidemia type: unspecified Hypertension I10 Hypertension type: essential hypertension Coronary artery disease I25.10
[2022-04-23] MEDS: amlodipine 5 mg Tablet PO (18:19)
--- NOTE | 2022-04-23 18:26 | PC.NURSE ---
Patient states he does have oxygen at home and is on 3L and wears a CPAP at night. However, upon admission to the unit he was satting at 96% on room air when Sal RT, checked. Oxygen not placed on patient at this time.
--- NOTE | 2022-04-23 19:08 | PC.NURSE ---
Patient requesting home dose of Ambien 5mg PO. He reports taking every night. Informed Dr. Duran and received order to continue patient's medication.
[2022-04-23] MEDS: zolpidem 5 mg Tablet PO (20:19)
[2022-04-23] MEDS: pregabalin 150 mg Capsule PO (20:19)
[2022-04-23] MEDS: clopidogrel 75 mg Tablet PO (20:19)
[2022-04-23] MEDS: aspirin 81 mg EC Tablet PO (20:19)
[2022-04-23 20:36] LABS: Glucose Point of Care 197 mg/dL (70-110)
[2022-04-24] VITALS (11 sets, daily range): BP systolic 135–160; BP diastolic 75–80; PULSE 63–82; RESP 15–19; TEMP 36.4–36.6; O2SAT 94–100
[2022-04-24] MEDS: levothyroxine 150 mcg Tablet PO (05:00)
[2022-04-24] MEDS: acetaminophen 325 mg Tablet 650 MG PO ×2 (05:00→10:25)
[2022-04-24] MEDS: magnesium oxide 400 mg tablet PO (05:00)
[2022-04-24] MEDS: enoxaparin 40 mg/0.4 mL Syringe SUBCUT (05:01)
[2022-04-24 05:16] LABS: Basophils % 0.4 %; Eosinophils # 0.1 10^3/uL (0.0-0.8); Eosinophils % 2.8 %; Hematocrit 26.9 % (42.0-52.0); Hemoglobin 8.5 g/dL (11.7-16.6); Lymphocytes # 1.4 10^3/uL (0.8-4.8); Lymphocytes % 29.1 %; Mean Corpuscular HGB Conc 31.6 g/dL (30.0-36.0); Mean Corpuscular Hemoglobin 29.5 pg (28.0-34.0); Mean Corpuscular Volume 93.4 fl (80-94); Mean Platelet Volume 10.9 fL (7.4-10.4); Monocytes # 0.5 10^3/uL (0.2-0.9); Monocytes % 9.9 %; Neutrophils # 2.68 10^3/uL (1.8-7.7); Neutrophils % 57.4 %; Nucleated Red Blood Cells % 0 %; Platelet Count 96 10^3/cmm (130-400); Red Blood Count 2.88 10^6/uL (4.1-5.3); Red Cell Distribution Width 15.1 % (12.1-15.1); White Blood Count 4.7 10^3/uL (4.0-10.0)
[2022-04-24 05:42] LABS: Calcium 8.1 mg/dL (8.5-10.5)
[2022-04-24 05:43] LABS: Alanine Aminotransferase 9 U/L (0-41); Albumin Level 2.4 g/dL (3.5-5.2); Alkaline Phosphatase 124 U/L (40-130); Anion Gap 20.3 (5-19); Aspartate Amino Transferase 11 U/L (0-40); Blood Urea Nitrogen 42 mg/dL (8-23); Calcium 8.4 mg/dL (8.5-10.5); Carbon Dioxide 21 mmol/L (22-29); Chloride 95 mmol/L (98-107); Globulin 2.4 g/dL (1.3-4.6); Glomerular Filtration Rate 6.5 mL/min (90-130); Glucose 132 mg/dL (65-115); Magnesium 1.8 mg/dL (1.7-2.3); Osmolality Calculated 288 mOsm/kg (285-295); Phosphorus 5.5 mg/dL (2.5-4.5); Potassium 3.3 mmol/L (3.5-5.1); Sodium 133 mmol/L (136-145); Total Bilirubin 0.2 mg/dL (0.15-1.2); Total Protein 4.8 g/dL (6.6-8.7)
[2022-04-24 05:46] LABS: Parathyroid Hormone 253.8 pg/mL (15-65)
[2022-04-24 06:21] LABS: Iron 105 ug/dL (59-158); Percent Saturation 70.4 % (20-50); Total Iron Binding Capacity 149 mcg/dl; Unsaturated Iron Binding 44 ug/dL (112-347)
[2022-04-24 06:29] LABS: Glucose Point of Care 102 mg/dL (70-110)
[2022-04-24 06:37] LABS: 25 Hydroxy Vitamin D 51 ng/mL (30-100)
[2022-04-24 06:41] LABS: Ferritin 1257 ng/mL (30-400)
[2022-04-24] MEDS: pantoprazole DR 40 mg Tablet PO (08:39)
[2022-04-24] MEDS: losartan 50 mg Tablet PO (08:39)
--- NOTE | 2022-04-24 08:55 | P.PN_ITS ---
Subjective Subjective: feels better. PD went well and negative 1865 ml overnight. no n/v/f/c/vyas/d/sob at rest Medications: Reviewed: Yes Medication Review Details: Current Medications Acetaminophen (Acetaminophen 325 Mg Tablet) 650 mg PO Q6H PRN PRN Reason: Mild/Mod Pain Or Temp >/= 101 Last Admin: 04/24/22 05:00 Dose: 650 mg Aminophylline (Aminophylline 25 Mg/Ml Sdv 10 Ml) 25 mg IVP Q2M PRN PRN Reason: see dose instructions Stop: 04/25/22 06:03 Lipase/Protease/Amylase (Yppfur-Cxirshpr-Hhehjec Capsule) 5 each PO TIDWM [facility] Last Admin: 04/24/22 08:37 Dose: Not Given Lipase/Protease/Amylase (Dvbubw-Oweqvstv-Lsucadl Capsule) 2 - 3 each PO PRN PRN PRN Reason: SNACKS Aspirin (Aspirin 81 Mg Ec Tablet) 81 mg PO BEDTIME [facility] Last Admin: 04/23/22 20:19 Dose: 81 mg Atorvastatin Calcium (Atorvastatin 40 Mg Tablet) 40 mg PO QPM [facility] Last Admin: 04/23/22 17:58 Dose: 40 mg Calcium Acetate (Calcium Acetate 667 Mg Capsule) 667 mg PO DAILY [facility] Last Admin: 04/24/22 08:41 Dose: Not Given Clopidogrel Bisulfate (Clopidogrel 75 Mg Tablet) 75 mg PO DAILY@2100 [facility] Last Admin: 04/23/22 20:19 Dose: 75 mg Dextrose (Dextrose 50% Syringe 50 Ml) 25 ml IVP ONCE PRN; Protocol PRN Reason: hypoglycemia protocol Dextrose (Dextrose 50% Syringe 50 Ml) 50 ml IVP PRN PRN; Protocol PRN Reason: hypoglycemia protocol Enoxaparin Sodium (Enoxaparin 40 Mg/0.4 Ml Syringe) 40 mg SUBCUT Q24H [facility] Last Admin: 04/24/22 05:01 Dose: 40 mg Glucagon (Glucagon 1 Mg/Ml Inj 1 Ml) 1 mg IM ONCE PRN; Protocol PRN Reason: Adult Acute Hypoglycemia Prot. Dextrose (D5w) 500 mls @ 100 mls/hr IV ONCE PRN; Protocol PRN Reason: Adult Acute Hypoglycemia Prot Insulin Human Lispro (Insulin Lispro 100 Unit/1 Ml) 0 unit SUBCUT TIDWM SHAMAR; Protocol Last Admin: 04/24/22 08:24 Dose: Not Given Levothyroxine Sodium (Levothyroxine 150 Mcg Tablet) 150 mcg PO QAM [facility] Last Admin: 04/24/22 05:00 Dose: 150 mcg Losartan Potassium (Losartan 50 Mg Tablet) 50 mg PO DAILY [facility] Last Admin: 04/24/22 08:39 Dose: 50 mg Magnesium Oxide (Magnesium Oxide 400 Mg Tablet) 400 mg PO QAM [facility] Last Admin: 04/24/22 05:00 Dose: 400 mg Multivitamins (Y-Dvfbsra-Rtvisuy C Tablet) 1 each PO DAILY [facility] Last Admin: 04/24/22 08:41 Dose: Not Given Nitroglycerin (Nitroglycerin 0.4 Mg Sublingual Tablet) 0.4 mg SUBLINGUAL Q5M PRN PRN Reason: Chest Pain Nitroglycerin (Nitroglycerin 0.4 Mg Sublingual Tablet) 0.4 mg SUBLINGUAL Q5M PRN PRN Reason: CHEST PAIN Stop: 04/25/22 06:03 Non-Formulary Medication (Cholecalciferol (Vitamin D3)) 50,000 unit PO Q7D [facility] Ondansetron HCl (Ondansetron 2 Mg/Ml Sdv 2 Ml) 4 mg IVP Q8H PRN PRN Reason: vomiting, or N/V if npo Ondansetron HCl (Ondansetron 2 Mg/Ml Sdv 2 Ml) 4 mg IVP Q2M PRN PRN Reason: NAUSEA Pantoprazole Sodium (Pantoprazole Dr 40 Mg Tablet) 40 mg PO DAILY [facility] Last Admin: 04/24/22 08:39 Dose: 40 mg Pregabalin (Pregabalin 150 Mg Capsule) 150 mg PO BEDTIME [facility] Last Admin: 04/23/22 20:19 Dose: 150 mg Regadenoson (Regadenoson 0.4 Mg/5 Ml Syringe) 0.4 mg IVP ONCE PRN PRN Reason: Lexiscan Stress Test Sertraline HCl (Sertraline 50 Mg Tablet) 75 mg PO QPM [facility] Last Admin: 04/23/22 17:44 Dose: 75 mg Zolpidem Tartrate (Zolpidem 5 Mg Tablet) 5 mg PO BEDTIME [facility] Last Admin: 04/23/22 20:19 Dose: 5 mg Vitals/I&O/Wt Last Vital Signs Temp 97.7 F 04/24/22 07:58 Pulse 70 09/16/22 07:58 Resp 16 04/24/22 07:58 BP 135/76 04/24/22 08:39 Pulse Ox 97 04/24/22 07:58 O2 Del Method 04/24/22 07:58 FiO2 28 04/24/22 02:30 04/23/22 04/24/22 04/24/22 22:59 06:59 14:59 Intake Total 480 / 480 360 / 840 Balance 480 / 480 360 / 840 Weight last 48 hrs Weight 86.183 kg Weight 85.729 kg Physical Exam Narrative: comfortable NARD vs noted heent- nc/at, eomi, anicteric neck supple lung dull bases- improved air movement compared to yesterday heart reg, +TALISHA abd soft, nt, nd, + bs, + tenkoff catheter ext no edema neuro- a,a, o x 3, FROM x 4 Data : 04/24/22 04:07 04/24/22 04:07 A&P Assessment and plan (1) ESRD (end stage renal disease): 72? yr old man CAD s/p recent stents, IDDM, ESRD on CCPD for 2.5? yrs. He cici lly does 10 hrs CCPD w/ two 6 liter bags- usually 1.25% and 2.5 % gluc and a 2 l yellow bag and daytime icodextran.? Pt is here w/ CP and sob. he had a CTA that was negative for a PE 1. recent CAD and stents - add ARB 2. CP per medicine and cardiology -bnp [id number]- normal cxr review echo -for stress test today -bp excellent 3. ESRD- ? will continue his home CCPD allow his to perform his CCPD 4. anemia- iron sat was low in march, now 70%, FERRITIN 1257- NO IRON 5. thrombocytopenia- 6. replete k 7. hyponatremia- monitor na w/ dialysis -normal tsh -can be from zoloft 8. DM control per medicine 9. renal bone mineral metabolism- check vit d, ca, phos 5.5 -binders, iPTH 253- okay for ESRD seen and examined w/?RN- telehealth visit informed consent for Telehealth and for dialysis obtained discussed w/ pt and his time spent 25 min Status: Acute Plan see above Attestations Medical Necessity Statement*: per medicine and cardiolofy Time Spent in Patient Care: 16 - 35 minutes (>than 50% of time spent in counselling and/or direct pt care on unit) . Coding Level of Care Code Acute Heavy Media Operator for Chg Fwd Diagnoses ESRD (end stage renal disease) N18.6
[2022-04-24] MEDS: epoetin alfa 1000 Unit/0.05 mL (ESRD) 20000 UNIT SUBCUT (10:06)
[2022-04-24] MEDS: potassium chloride ER 20 mEq Tablet PO (10:06)
[2022-04-24] MEDS: regadenoson 0.4 Mg/5 ml Syringe IVP (11:42)
--- NOTE | 2022-04-24 13:20 | PC.CHAP ---
Pastoral Care Encounter/Spiritual Assessment Type of Contact [] Declined table cut off saw operator visit [] Patient/Family/Request visit [] Outpatient visit [] Follow-up visit [] Physician referral [] Code/Alert [x] Routine visit [] Staff referral [] Actively dying [] Patient sleeping [] Family support [] [] Out of room [] Palliative care [] [] Receiving care in room [] Pre-surgical visit [] Trauma [] Long length of stay [] ICU visit [] Other: Relational/Emotional Strength [] Patient feels connected with others/family/visitors/staff [] Distress [] Loneliness/isolation [] Abandonment Spirituality of Patient [x] Person of [place] [] Attends Mormonism of their [place] [x] Believes in Prayer [] Reads Bible or Rastafari materials [] There are Spiritual issues to be addressed Executive Receptionist Interventions x[] Prayer []x Active listening [] Non-anxious presence [] Spiritual/emotional support [] Crisis/trauma care [] Spiritual counseling [] Bereavement support [] Provided bereavement packet [] Provided Bible/devotional materials [] Provided toy/stuffed animal, coloring book to patient or family member [] Provided Communion [] Anointing/[place] [] Salvation [x] Completed spiritual assessment [] Other: Impact on Illness or Injury [] Angry [] Fearful [] Anxious [] Often cries [] Exhaustion [] Unable to work [] Unable to attend mandaen [] Unable to walk/stand [] Unable to read [] Unable to drive [] Unable to eat/drink [] Unable to sleep [] Unable to be with family [] Patient intubated [] Other: Summary Time spent with patient 10 mi
--- NOTE | 2022-04-24 15:03 | PM.DCS ---
Discharge Providers Date of Admission: 04/23/22 03:02 Date of Discharge: April 24, 2022 Attending Provider at Admission: Rony Duran MD Attending Provider at Discharge: Suleman Hemphill MD Primary Care Provider: Irene Jones Diagnoses at Discharge Discharge Diagnosis (1) ESRD (end stage renal disease): Status: Acute Reason for Visit Reason for Visit: cp, high bp Hospital Course Hospital Course 72 year old male end-stage renal disease on peritoneal dialysis, history of CAD status post 4 stents, history of Parkinson's disease status post deep brain stimulator, hypothyroidism hypertension hyperlipidemia, type 2 diabetes mellitus recent was admitted with chief complaint of chest pain chest pain. Patient underwent nuclear stress test: Which was normal, 2D echo was: Showed: LV systolic function is normal with EF of 50-55%. Grade 1 diastolic dysfunction. ?The left atrium is dilated. Mitral valve is thickened.? Mild mitral regurgitation. ?Aortic valve is thickened.? Trace aortic regurgitation.Mild tricuspid regurgitation. Chest pain was likely secondary to hypertensive urgency, patient has recently been started on amlodipine 10 mg p.o. daily by his maintenance coordinator, will continue with the same. CTA chest done during this hospital stay has shown: No pulmonary embolism or pneumonia.Small right pleural effusion.He will continue to follow nephrology as well as his primary care physician as outpatient. Patient has overall responded well to medical management at the time of discharge he was not complaining of chest pain, overall he has responded well to medical management, and is being discharged in stable condition to home. Physical Exam Const: COMMON NORMALS: patient oriented x3 Resp: COMMON NORMALS: normal respiratory effort, No retractions, No use of accessory muscles and clear to auscultation bilaterally EFFORT & INSPECTION: Yes symmetric chest movement AUSCULTATION: clear to auscultation bilaterally Cardio: COMMON NORMALS: regular rate, regular rhythm, S1 normal heart sound present, S2 normal heart sound present, No gallops present (Cardio), No murmurs present (Cardio), No rub (Cardio) and Peripheral pulses 2+ throughout RATE: regular rate RHYTHM: regular rhythm HEART SOUNDS: S1 normal heart sound present and S2 normal heart sound present PERIPHERAL PULSES: Peripheral pulses 2+ throughout GI: COMMON NORMALS: Normal to inspection, nondistended, normoactive bowel sounds present, Soft to palpation, non-tender, No hepatosplenomegaly present and no masses AUSCULTATION: Yes normoactive bowel sounds PALPATION: Yes Soft to palpation and Yes No hepatosplenomegaly present RECTAL EXAM: Yes deferred Extremity: COMMON NORMALS: no clubbing, cyanosis or edema and no pedal edema Neuro: COMMON NORMALS: patient oriented x3 Discharge Data Studies Completed and Pending Completed Studies During Hospitalization Category Date Time Status CTA chest [CT angio chest PE protcl [id number]] Stat Cat Scan 04/22/22 22:38 Completed Cardiac Stress Test MIBI [Sestamibi Stress Test Request Exams 04/23/22 18:04 Completed ] Routine XR chest 1V portable [id number] Stat Exams 04/22/22 21:40 Completed NM to perf SPECT r/s* [id number] Routine Nuc Med 04/24/22 18:04 Completed CV. echo complete* [id number] Stat Ultrasound 04/23/22 04:00 Completed Pending at discharge Category Date Time Status Complete Blood Count w/Auto AM LABS Lab 04/25/22 04:00 Ordered Complete Blood Count w/Auto AM LABS Lab 04/26/22 04:00 Ordered Comprehensive Metabolic Panel AM LABS Lab 04/25/22 04:00 Ordered Comprehensive Metabolic Panel AM LABS Lab 04/26/22 04:00 Ordered Magnesium AM LABS Lab 04/25/22 04:00 Ordered Magnesium AM LABS Lab 04/26/22 04:00 Ordered Phosphorus AM LABS Lab 04/25/22 04:00 Ordered Phosphorus AM LABS Lab 04/26/22 04:00 Ordered Radiology Impressions Chest X-Ray 04/22/22 21:40 IMPRESSION: No acute findings. Chest CTA 04/22/22 22:38 IMPRESSION: 1. No pulmonary embolism or pneumonia. 2. Small right pleural effusion. 3. Large upper abdominal ascites. 4. Other chronic and incidental findings as described. Laboratory Results WBC 4.7 10^3/uL (4.0-10.0) 04/24/22 04:07 RBC 2.88 10^6/uL (4.1-5.3) L 04/24/22 04:07 Hgb 8.5 g/dL (11.7-16.6) L 04/24/22 04:07 Hct 26.9 % (42.0-52.0) L 04/24/22 04:07 MCV 93.4 fl (80-94) 04/24/22 04:07 MCH 29.5 pg (28.0-34.0) 04/24/22 04:07 MCHC 31.6 g/dL (30.0-36.0) 04/24/22 04:07 RDW 15.1 % (12.1-15.1) 04/24/22 04:07 Plt Count 96 10^3/cmm (130-400) L 04/24/22 04:07 MPV 10.9 fL (7.4-10.4) H 04/24/22 04:07 Neut % (Auto) 57.4 % 04/24/22 04:07 Lymph % (Auto) 29.1 % 04/24/22 04:07 [place] % (Auto) 9.9 % 04/24/22 04:07 Eos % (Auto) 2.8 % 04/24/22 04:07 Baso % (Auto) 0.4 % 04/24/22 04:07 Neut # (Auto) 2.68 10^3/uL (1.8-7.7) 04/24/22 04:07 Lymph # (Auto) 1.4 10^3/uL (0.8-4.8) 04/24/22 04:07 [place] # (Auto) 0.5 10^3/uL (0.2-0.9) 04/24/22 04:07 Eos # (Auto) 0.1 10^3/uL (0.0-0.8) 04/24/22 04:07 Baso # (Auto) 0.0 10^3/uL (0.0-0.1) 04/24/22 04:07 Nucleated RBC % (auto) 0 % 04/24/22 04:07 Nucleated RBCs # 0.0 /100WBC 04/24/22 04:07 D-Dimer 0.73 ug/mIFEU (0-0.59) H 04/22/22 22:14 Sodium 133 mmol/L (136-145) L 04/24/22 04:07 Potassium 3.3 mmol/L (3.5-5.1) L 04/24/22 04:07 Chloride 95 mmol/L (98-107) L 04/24/22 04:07 Carbon Dioxide 21 mmol/L (22-29) L 04/24/22 04:07 Anion Gap 20.3 (5-19) H 04/24/22 04:07 BUN 42 mg/dL (8-23) H 04/24/22 04:07 Creatinine 8.2 mg/dL (0.7-1.2) H* 04/24/22 04:07 GFR Calculation 6.5 mL/min (90-130) L 04/24/22 04:07 Glucose 132 mg/dL (65-115) H 04/24/22 04:07 POC Glucose 102 mg/dL (70-110) 04/24/22 06:25 Calculated Osmolality 288 mOsm/kg (285-295) 04/24/22 04:07 Uric Acid 5.7 mg/dL (3.4-7.0) 04/23/22 07:17 Calcium 8.4 mg/dL (8.5-10.5) L 04/24/22 04:07 Phosphorus 5.5 mg/dL (2.5-4.5) H 04/24/22 04:07 Magnesium 1.8 mg/dL (1.7-2.3) 04/24/22 04:07 Iron 105 ug/dL (59-158) 04/24/22 04:07 TIBC 149 mcg/dl 04/24/22 04:07 % Saturation 70.4 % (20-50) H 04/24/22 04:07 Unsat Iron Binding 44 ug/dL (112-347) L 04/24/22 04:07 Ferritin 1257 ng/mL (30-400) H 04/24/22 04:07 Total Bilirubin 0.2 mg/dL (0.15-1.2) 04/24/22 04:07 AST 11 U/L (0-40) 04/24/22 04:07 ALT 9 U/L (0-41) 04/24/22 04:07 Alkaline Phosphatase 124 U/L (40-130) 04/24/22 04:07 Troponin T Baseline 288 ng/L (0-15) H* 04/22/22 21:59 Troponin T 120 Minute 274.4 ng/L (0-15) H 04/22/22 23:51 Delta Troponin T -13.6 ABS# (0-10) L 04/22/22 23:51 Troponin T Hi Sens 6Hr 279.1 ng/L (0-15) H 04/23/22 07:17 Troponin T Hi Sens 6Hr Delta -8.9 ng/L (0-12) L 04/23/22 07:17 NT-Pro-B Natriuret Pep 90418 pg/mL (0-125) H 04/22/22 23:51 Total Protein 4.8 g/dL (6.6-8.7) L 04/24/22 04:07 Albumin 2.4 g/dL (3.5-5.2) L 04/24/22 04:07 Globulin 2.4 g/dL (1.3-4.6) 04/24/22 04:07 Triglycerides 271 mg/dL (0-150) H 04/23/22 04:00 Cholesterol 123 mg/dL (0-200) 04/23/22 04:00 LDL Cholesterol, Calc 34 mg/dL (50-129) L 04/23/22 04:00 HDL Cholesterol 35 mg/dL (60-100) L 04/23/22 04:00 LDL/HDL Ratio 0.97 RATIO (0.00-3.22) 04/23/22 04:00 Cholesterol/HDL Ratio 3.51 mg/dL (1.0-5.00) 04/23/22 04:00 25-OH Vitamin D Total 51 ng/mL (30-100) 04/24/22 04:07 TSH 0.74 uIU/mL (0.27-4.20) 04/23/22 04:00 PTH Intact 253.8 pg/mL (15-65) H 04/24/22 04:07 Calcium (PTH Intact) 8.1 mg/dL (8.5-10.5) L 04/24/22 04:07 Hepatitis C Antibody Non-reactive (Nonreactive) 04/23/22 13:41 Vitals Last Vital Signs Temp 97.7 F 04/24/22 07:58 Pulse 81 04/24/22 14:19 Resp 16 04/24/22 07:58 BP 158/75 04/24/22 11:59 Pulse Ox 94 04/24/22 09:56 O2 Del Method 04/24/22 09:56 FiO2 28 04/24/22 02:30 Discharge Plan Discharge Patient Disposition: Home Condition: Stable Prescriptions: Continued potassium chloride 20 mEq tablet extended release 20 meq PO QAM insulin aspart U-100 [Novolog Flexpen U-100 Insulin] 100 unit/mL (3 mL) insulin pen See Rx Instructions .ROUTE .COMPLEX Rx Instructions: 12 units tid with meals plus sliding scale nitroglycerin [Nitrostat] 0.4 mg tablet, sublingual 0.4 mg SUBLINGUAL Q5M PRN (Reason: Chest Pain) Qty: 25 2RF Rx Instructions: do not exceed 3 doses per episode pantoprazole 40 mg tablet,delayed release (DR/EC) 40 mg PO DAILY magnesium oxide [MagOx] 400 mg (241.3 mg magnesium) Tablet 400 mg PO QAM insulin glargine [Basaglar KwikPen U-100 Insulin] 100 unit/mL (3 mL) Insulin Pen See Rx Instructions .ROUTE .COMPLEX Rx Instructions: 22-40 units according to bag used for dialysis Creon 12,000-38,000 -60,000 unit Capsule,Delayed Release(Dr/Ec) See Rx Instructions .ROUTE .COMPLEX Rx Instructions: 5 cap po with meals and 2-3 caps with snacks. levothyroxine [Euthyrox] 150 mcg Tablet 150 mcg PO QAM Rx Instructions: Take on an empty stomach sertraline 50 mg Tablet 75 mg PO QPM pregabalin [Lyrica] 150 mg Capsule 150 mg PO BEDTIME calcium acetate(phosphat bind) 667 mg capsule See Rx Instructions .ROUTE .COMPLEX Rx Instructions: Take 3 caps PO with meals and 1 cap with snack. (Do not exceed 12 caps per day). cholecalciferol (vitamin D3) 1,250 mcg (50,000 unit) capsule 50,000 unit PO Q7D Rx Instructions: on wed clopidogrel 75 mg Tablet 75 mg PO DAILY@2100 Qty: 120 4RF atorvastatin 40 mg tablet 40 mg PO QPM Qty: 90 3RF aspirin 81 mg Tablet,Delayed Release (Dr/Ec) 81 mg PO BEDTIME Qty: 120 3RF albuterol sulfate 90 mcg/actuation HFA aerosol inhaler 2 inh INHALATION Q6H PRN (Reason: shortness of breath or wheezing) Qty: 8 0RF calcitriol 0.5 mcg capsule 0.5 mcg PO DAILY zolpidem 5 mg tablet 5 mg PO BEDTIME amlodipine 10 mg tablet 10 mg PO DAILY 30 Days Qty: 30 0RF Discharge Orders: Discharge Order (Routine); Ordered 04/24/22 Ordered By: Suleman Hemphill Referrals: Michael Carrillo MD [Referring] - 1 month Kiran Reardon MD [Primary Care Provider] - 2 weeks Patient Instructions: Opioid Safety, Pain Management Discharge Attestations Time Spent in Discharge Care*: less than 30 min Quality Metrics Clinical Quality Measures [ No reported AMI, CVA or VTE this stay] Coding Level of Care Code Acute Chg FW DC note Diagnoses ESRD (end stage renal disease) N18.6
--- NOTE | 2022-04-24 18:04 | NMCV_ITS ---
NM to perf SPECT r/s* [id number] Anshu Hurt Age: 72 Gender: M : 1950 Exam Date: 04/24/2022 18:04 Ordering Phys: Suleman Hemphill MD Technologist: NATY Dawson Exam Location: [facility] Indications: CHEST PAIN STRESS TEST Please see separate stress test report in [facility] for full findings IMAGE PROTOCOL Rest/Stress 1 Lexiscan Day Radiopharmaceutical Dose (mCi) Administration Site Administered by Rest: Tc-99m 11.0 IV NATY Dawson Sestamibi Stress:Tc-99m 32.7 IV NATY Larkin Sestamibi Rest: 24-Apr-2022 60 Discovery 630 Stress: 24-Apr-2022 30 Discovery 630 0.4mg Lexiscan. Supine position only as patient was unable to lay prone. SPECT RESULTS Technical Quality: Excellent Raw Data Analysis: Normal, Right arm down Image Corrections: Subdiaphragmatic attenuation artifact. No attenuation or motion correction applied Summed Stress Score: 0 Summed Rest Score: 0 Summed Difference Score: 0 PERFUSION FINDINGS SPECT images demonstrate homogeneous tracer distribution throughout the myocardium. FUNCTIONAL RESULTS (calculated via Gated SPECT) Stress Image LV EF (%): 48 Stress EDV (mL):143 TID: 1.01 Stress ESV (mL):74 FUNCTIONAL FINDINGS: The left ventricle is normal in size. Transient Ischemia Dilatation of 1. There is mildly reduced left ventricular global systolic function. The left ventricular ejection fraction is mildly reduced with a value of 48%. There is mild global hypokinesis. Increased end-diastolic and end-systolic volumes. IMPRESSIONS 1. Myocardial perfusion imaging is normal. 2. The left ventricular ejection fraction is mildly reduced with a value of 48%. 3. There is mild global hypokinesis. 4. No EKG changes with Lexiscan infusion. Refer to separate report for details. Gladys Hwang MD (Electronically Signed) Final Date: 24 April 2022 13:51 S
== END 2022-04-24 16:27 | disposition home health service (06) ==
LOC: ER 04-23 03:02 → MEDSURG 04-23 16:11
PROVIDERS: Emergency Medicine; Internal Medicine Nephrology; Admitting Provider Family Medicine; Emergency Provider Emergency Medicine; PCP Family Medicine; Visit Provider Internal Medicine
DX: E11.22 Type 2 diabetes mellitus with diabetic chronic kidney disease (principal); I12.0 Hypertensive chronic kidney disease with stage 5 chronic kidney disease or end stage renal disease; N18.6 End stage renal disease; Z99.2 Dependence on renal dialysis; D63.1 Anemia in chronic kidney disease; I25.10 Atherosclerotic heart disease of native coronary artery without angina pectoris; Z95.5 Presence of coronary angioplasty implant and graft; G20 Parkinson's disease; E03.9 Hypothyroidism, unspecified; Z79.4 Long term (current) use of insulin; E87.1 Hypo-osmolality and hyponatremia; E78.5 Hyperlipidemia, unspecified; J44.9 Chronic obstructive pulmonary disease, unspecified; Z87.891 Personal history of nicotine dependence
CPT/HCPCS: 36415; 36416; 71045; 71275; 78452; 80048; 80053; 80061; 82306; 82310; 82728; 82962; 83540; 83550; 83735; 83880; 83970; 84100; 84443; 84484; 84550; 85025; 85378; 86803; 93005; 93306; 94664; 96372; 96374; 99285; A9500; G0378; J1650; J1815; J2785; J3490; Q4081; Q9967

== ENCOUNTER 2022-05-20 11:26 | Outpatient (CLI) | payer MEDICARE, OTHER, SELFPAY ==
--- NOTE | 2022-05-20 11:45 | XRR_ITS ---
PROCEDURE INFORMATION: Exam: XR Chest Exam date and time: 05/20/2022 11:47 AM Age: 72 years old Clinical indication: Condition or disease; Lung condition and disease; Pleural effusion; Other: Not specified TECHNIQUE: Imaging protocol: Radiologic exam of the chest. Views: 2 views. COMPARISON: CR (CHEST, ) 04/22/2022 9:56 PM FINDINGS: Tubes, catheters and devices: Pacemaker. Lungs: Chronic granulomatous disease. Pleural spaces: No pleural effusion. Heart/Mediastinum: Prominent epicardial fat. No cardiomegaly. Bones/joints: Degenerative change. When correlating with the previous study, no significant interval changes are present. XR/XR chest 2V* [id number] IMPRESSION: Stable appearance of the chest, not significantly changed from 04/22/22.
== END 2022-05-20 11:27 | disposition home or self-care (01) ==
PROVIDERS: PCP Family Medicine; Visit Provider Internal Medicine Critical Care Medicine
DX: J90 Pleural effusion, not elsewhere classified (principal)
CPT/HCPCS: 71046

== ENCOUNTER → 2022-06-24 14:06 | Outpatient (BNVA) | payer MEDICARE, OTHER, SELFPAY | PROVIDERS: PCP Family Medicine; Visit Provider Internal Medicine | DX: I25.10 Atherosclerotic heart disease of native coronary artery without angina pectoris (principal); E78.5 Hyperlipidemia, unspecified; I12.0 Hypertensive chronic kidney disease with stage 5 chronic kidney disease or end stage renal disease; E11.22 Type 2 diabetes mellitus with diabetic chronic kidney disease; N18.6 End stage renal disease; Z87.891 Personal history of nicotine dependence; Z79.4 Long term (current) use of insulin | CPT/HCPCS: 99214 ==

== ENCOUNTER → 2022-07-27 08:18 | Outpatient (BNVA) | payer MEDICARE, OTHER, SELFPAY | PROVIDERS: PCP Family Medicine; Visit Provider Internal Medicine Pulmonary Disease | DX: J90 Pleural effusion, not elsewhere classified (principal); J96.12 Chronic respiratory failure with hypercapnia; R74.8 Abnormal levels of other serum enzymes; Z87.891 Personal history of nicotine dependence | CPT/HCPCS: 80053; 85025; 99214 ==

== ENCOUNTER → 2022-08-26 16:00 | Outpatient (BNVA) | payer MEDICARE, OTHER, SELFPAY | PROVIDERS: PCP Family Medicine; Visit Provider Internal Medicine | DX: Z53.9 Procedure and treatment not carried out, unspecified reason (principal) | CPT/HCPCS: 99214 ==

== ENCOUNTER → 2022-10-09 15:04 | Outpatient (BNVA) | payer MEDICARE, OTHER, SELFPAY | PROVIDERS: PCP Family Medicine; Visit Provider Thoracic Surgery (Cardiothoracic Vascular Surgery) | DX: L98.9 Disorder of the skin and subcutaneous tissue, unspecified (principal) | CPT/HCPCS: 99213 ==

== ENCOUNTER → 2022-11-27 09:23 | Outpatient (BNVA) | payer MEDICARE, OTHER, SELFPAY | PROVIDERS: PCP Family Medicine; Visit Provider Internal Medicine Pulmonary Disease | DX: J96.12 Chronic respiratory failure with hypercapnia (principal); J90 Pleural effusion, not elsewhere classified; Z87.891 Personal history of nicotine dependence | CPT/HCPCS: 99214 ==

== ENCOUNTER → 2022-12-01 08:07 | Outpatient (BNVA) | payer MEDICARE, OTHER, SELFPAY | PROVIDERS: PCP Family Medicine; Visit Provider Podiatrist Foot & Ankle Surgery | DX: E11.42 Type 2 diabetes mellitus with diabetic polyneuropathy (principal); L60.3 Nail dystrophy; N18.5 Chronic kidney disease, stage 5; I73.9 Peripheral vascular disease, unspecified; E11.22 Type 2 diabetes mellitus with diabetic chronic kidney disease; M20.42 Other hammer toe(s) (acquired), left foot; M20.41 Other hammer toe(s) (acquired), right foot; Z79.4 Long term (current) use of insulin | CPT/HCPCS: 11721 ==

== ENCOUNTER → 2022-12-16 10:56 | Outpatient (BNVA) | payer MEDICARE, OTHER, SELFPAY | PROVIDERS: PCP Family Medicine; Visit Provider Internal Medicine Pulmonary Disease | DX: J96.12 Chronic respiratory failure with hypercapnia (principal); J90 Pleural effusion, not elsewhere classified; Z87.891 Personal history of nicotine dependence; J30.2 Other seasonal allergic rhinitis; E86.0 Dehydration | CPT/HCPCS: 36415; 71046; 82785; 83880; 86003; 99214 ==

== ENCOUNTER 2022-12-27 22:06 | Inpatient (IN) | payer MEDICARE, OTHER, SELFPAY ==
[2022-12-27 22:20] VITALS: BP 138/84; PULSE 89; RESP 26; TEMP 36.8; O2SAT 98; BMI 25.1
--- NOTE | 2022-12-27 22:27 | XRR_ITS ---
PROCEDURE INFORMATION: Exam: XR Chest Exam date and time: 12/27/2022 10:37 PM Age: 72 years old Clinical indication: Pain; Chest pressure; Additional info: Cp TECHNIQUE: Imaging protocol: Radiologic exam of the chest. Views: 1 view. COMPARISON: CR XR chest 2V* [id number] 12/16/2022 12:49 PM FINDINGS: Tubes, catheters and devices: Right-sided apparent vagal stimulator. Lungs: Right lower lobe atelectasis versus minimal infiltrate. Pleural spaces: Unremarkable. No pleural effusion. No pneumothorax. Heart/Mediastinum: Cardiomegaly and mild pulmonary vascular congestion. Bones/joints: Unremarkable. XR/XR chest 1V portable [id number] IMPRESSION: 1. Cardiomegaly and mild pulmonary vascular congestion. 2. Right lower lobe atelectasis versus minimal infiltrate.
--- NOTE | 2022-12-27 22:27 | ECG_ITS ---
[facility] Test Date: 2022-12-27 Pat Name: Anshu Hurt Department: Room: Gender: Male [employer]: : 1950 Requested By: Surya Ba Order Number: [id number] Murtaza MD: Lino Javier M.D. Measurements Intervals [place] Rate: 89 P: 95 MA: 255 QRS: 147 QRSD: 93 T: 107 QT: 407 QTc: 497 Interpretive Statements SINUS RHYTHM WITH FIRST DEGREE AV BLOCK RIGHT AXIS DEVIATION [QRS AXIS > 100] BASELINE ARTIFACT Compared to ECG 04/23/2022 10:49:32 Right-axis deviation now present T-wave abnormality no longer present Electronically Signed On 12-28-2022 16:33:01 CDT by Lino Javier M.D. [email or web address]/[id number] f
[2022-12-27 22:35] LABS: Basophils % 0.2 %; Eosinophils # 0.2 10^3/uL (0.0-0.8); Eosinophils % 1.9 %; Hematocrit 24.2 % (42.0-52.0); Lymphocytes # 1.3 10^3/uL (0.8-4.8); Lymphocytes % 12.7 %; Mean Corpuscular HGB Conc 33.1 g/dL (30.0-36.0); Mean Corpuscular Hemoglobin 30.8 pg (28.0-34.0); Mean Corpuscular Volume 93.1 fl (80-94); Monocytes # 0.9 10^3/uL (0.2-0.9); Monocytes % 8.8 %; Neutrophils # 7.57 10^3/uL (1.8-7.7); Neutrophils % 75.9 %; Nucleated Red Blood Cells % 0 %; Platelet Count 122 10^3/cmm (130-400); Red Cell Distribution Width 13.4 % (12.1-15.1)
[2022-12-27] MEDS: nitroglycerin 1 gm/inch oint Pkt 1 INCH TOPICAL (22:38)
[2022-12-27] MEDS: ondansetron 2 mg/ML SDV 2 mL 4 MG IVP (22:38)
[2022-12-27] MEDS: morphine 4 mg/mL SDV 1 mL 2 MG IVP (22:38)
[2022-12-27 22:43] VITALS: BP 129/79; PULSE 96; RESP 22; O2SAT 97
[2022-12-27 23:03] LABS: Alanine Aminotransferase 27 U/L (0-41); Albumin Level 2.8 g/dL (3.5-5.2); Alkaline Phosphatase 132 U/L (40-130); Aspartate Amino Transferase 32 U/L (0-40); Blood Urea Nitrogen 46 mg/dL (8-23); Calcium 7.2 mg/dL (8.5-10.5); Carbon Dioxide 21 mmol/L (22-29); Chloride 99 mmol/L (98-107); Globulin 2.5 g/dL (1.3-4.6); Glomerular Filtration Rate 6.8 mL/min (90-130); Glucose 144 mg/dL (65-115); Magnesium 1.8 mg/dL (1.7-2.3); Osmolality Calculated 296 mOsm/kg (285-295); Phosphorus 7.1 mg/dL (2.5-4.5); Sodium 136 mmol/L (136-145); Total Bilirubin 0.3 mg/dL (0.15-1.2); Total Protein 5.3 g/dL (6.6-8.7)
[2022-12-27 23:10] LABS: Troponin(5th) Baseline 342 ng/L (0-15)
[2022-12-27] MEDS: ropinirole 0.25 mg Tablet PO (23:10)
[2022-12-27 23:19] VITALS: BP 113/72; PULSE 99; RESP 20; O2SAT 96
[2022-12-27 23:38] LABS: NT Pro B Type Natriuretic Pept 47314 pg/mL (0-125)
[2022-12-28] VITALS (40 sets, daily range): BP systolic 105–128; BP diastolic 44–79; PULSE 61–90; RESP 12–26; TEMP 36.7–37.7; O2SAT 87–100
--- NOTE | 2022-12-28 00:27 | ECG_ITS ---
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 Measurements Intervals [place] Rate: 84 P: 0 MT: 0 QRS: 147 QRSD: 122 T: 99 QT: 416 QTc: 495 Interpretive Statements SINUS RHYTHM RIGHT AXIS DEVIATION [QRS AXIS > 100] MODERATE INTRAVENTRICULAR CONDUCTION DELAY [110+ ms QRS DURATION] MODERATE VOLTAGE CRITERIA FOR LVH, CONSIDER NORMAL VARIANT [MEETS CRITERIA IN ONE OF: R(aVL), S(V1), R(V5), R(V5/V6)+S(V1)] ST DEVIATION AND MODERATE T-WAVE ABNORMALITY, CONSIDER LATERAL ISCHEMIA [-0.1+ mV T-WAVE IN I/aVL/V5/V6] Compared to ECG 12/27/2022 22:16:24 Intraventricular conduction delay now present T-wave abnormality now present Possible ischemia now present First degree AV block no longer present ST (T wave) deviation no longer present Electronically Signed On 12-28-2022 16:37:59 CDT by Lino Javier M.D. [id number]
--- NOTE | 2022-12-28 01:15 | PC.NURSE ---
to room to check on pt. pt resting comfortably with eyes closed. pt states pain is better at this time 10/16.
[2022-12-28 01:35] LABS: Troponin 5 2HR 341.5 ng/L (0-15); Troponin 5 2HR Delta -0.5 ABS# (0-10)
--- NOTE | 2022-12-28 02:07 | ED_ITS ---
HPI - Chest Pain General: Chief Complaint: Chest Pain Stated Complaint: chest pain, sob Time Seen by Provider: 12/27/22 22:15 Source: patient History of Present Illness: 72-year-old male with end-stage renal disease and coronary disease. He presents with chest discomfort that has been on and off since after cheondoism yesterday now. He had taken Rolaids/Tums due to the discomfort, because he thought it might be indigestion. This did not seem to help. He had a total of 4 nitroglycerin at home, which helps transiently. He presents in significant discomfort. He was ready to be hooked up for peritoneal dialysis this evening when he told his that he wanted to come to the hospital because of the chest discomfort. He has been short of breath. Mildly diaphoretic. Nauseated at times. MD complaint: chest pain Pertinent past history: coronary artery disease Onset (ago): hour(s) Timing of current episode: episodic Prior episodes: Yes Onset: during rest Pain location: substernal Severity: moderate Quality: aching Relieving factors: nitroglycerin Exacerbating factors: nothing Associated symptoms: Reports diaphoresis, dyspnea and nausea; Deny abdominal pain, fever(s), leg edema, palpitations, syncope or vomiting Treatment prior to arrival: none Review of Systems Const: Reports: diaphoresis; Denies: fever(s) Card: Reports: chest pain; Denies: palpitations or syncope Resp: Reports: dyspnea; Denies: productive cough or non-productive cough GI: Reports: nausea; Denies: abdominal pain or vomiting Psych: Reports: anxiety PFS ED PFSH: Medical History Acute hypokalemia Bilateral wheezing Chest pain COPD exacerbation Coronary artery disease Depression Diabetes End stage renal disease ESRD (end stage renal disease) Essential tremor Gastroparesis Gout Hypercapnic respiratory failure Hyperlipidemia Hypertension Hypothyroidism (acquired) Lung entrapment Pancreatitis takes chronic pancrease Parkinsonian tremor Peritoneal dialysis catheter in place Pleural effusion Pneumonia Pneumonia Pulmonary nodule Stage 5 chronic kidney disease Tremor Vitiligo Weakness Surgical History History of appendectomy History of carpal tunnel release left wrist 1975 History of cholecystectomy Family History Other CAD (coronary artery disease) Cancer Diabetes Hypertension Denies family history of Stroke Social History Smoking and tobacco status: former smoker Quit status (tobacco): has quit using tobacco Year quit tobacco: 1993 Former quit date comment: 2 ppd X 20 years Alcohol intake: never Substance/Drug Use: never Household members: spouse Marital status: Physical Exam Const: GENERAL APPEARANCE: cooperative and ill appearing (Mildly); not frail appearing HENMT: COMMON NORMALS: normocephalic, atraumatic and Normal external nose present HEAD & SCALP: normocephalic and atraumatic FACE & SINUS: normal facial exam and face symmetric NOSE: Normal external nose present Eye: COMMON NORMALS: Equal, round and reactive pupils present and EOMs intact bilaterally PUPIL: Yes Equal, round and reactive pupils present Neck/C-Spine: GENERAL: Yes trachea midline Chest: CHEST: Yes Symmetrical chest wall rise Resp: COMMON NORMALS: normal respiratory effort, No retractions, No use of accessory muscles and clear to auscultation bilaterally AUSCULTATION: clear to auscultation bilaterally Cardio: COMMON NORMALS: regular rate and regular rhythm RATE: regular rate RHYTHM: regular rhythm GI: COMMON NORMALS: Normal to inspection, nondistended, normoactive bowel sounds present Extremity: COMMON NORMALS: no pedal edema Neuro: BREN COMA SCALE: document GCS findings [place] coma scale eye opening: Spontaneous [place] coma scale verbal response: Orientated Bren coma scale motor response: Obey commands [place] coma scale total score: 15 SENSORY EXAM: Yes extremities (intact) Psych: COMMON NORMALS: speech normal SPEECH: Yes normal speech Skin: COMMON NORMALS: no rashes or lesions noted GENERAL SKIN EXAM: no ra shes or lesions noted Course Vital Signs: Vital signs: Vital Signs Temperature 98.3 F 12/27/22 22:20 Pulse Rate 73 12/28/22 01:58 Respiratory Rate 16 12/28/22 01:58 Blood Pressure 116/44 12/28/22 01:58 Pulse Oximetry 90 12/28/22 01:58 Oxygen Delivery Me thod Room Air 12/28/22 01:19 MDM - Chest Pain Medical Decision Making Pain and a 3 out of 10 after Nitropaste and 2 mg of morphine. Creatinine is 7.9. Electrolytes are essentially not remarkable. Hemoglobin though is 8. This could be a factor. Mild thrombocytopenia. Chest x-ray shows mild pulmonary vascular congestion. Troponin did not change at 2 hours. It does ap pear near his baseline from previous troponins. The patient's story is concerning for anginal chest discomfort in a patient with end-stage renal disease, not relieved by nitroglycerin. He will be placed on a heparin drip, and placed in the [facility]SU for 6-hour troponin and continued testing as needed. Hospitalist has been consulted and will see the patient. Lab Data 12/27/22 22:20 12/27/22 22:20 Radiology Impressions Chest X-Ray 12/27/22: IMPRESSION: 1. Cardiomegaly and mild pulmonary vascular congestion. 2. Right lower lobe atelectasis versus minimal infiltrate. Laboratory Results WBC 10.0 10^3/uL (4.0-10.0) 12/27/22 22: RBC 2.60 10^6/uL (4.1-5.3) L 12/27/22 22: Hgb 8.0 g/dL (11.7-16.6) L 12/27/22 22:20 Hct 24.2 % (42.0-52.0) L 12/27/22 22: MCV 93.1 fl (80-94) 12/27/22 22: MCH 30.8 pg (28.0-34.0) 12/27/22 22: MCHC 33.1 g/dL (30.0-36.0) 12/27/22 22: RDW 13.4 % (12.1-15.1) 12/27/22: Plt Count 122 10^3/cmm (130-400) L 12/27/22 22:20 MPV 10.0 fL (7.4-10.4) 12/27/22 22: Neut % (Auto) 75.9 % 12/27/22 22: Lymph % (Auto) 12.7 % 12/27/22 22: Sandoval % (Auto) 8.8 % 12/27/22 22: Eos % (Auto) 1.9 % 12/27/22 22:20 Baso % (Auto) 0.2 % 12/27/22: Neut # (Auto) 7.57 10^3/uL (1.8-7.7) 12/27/22 22:20 Lymph # (Auto) 1.3 10^3/uL (0.8-4.8) 12/27/22 22:20 Sandoval # (Auto) 0.9 10^3/uL (0.2-0.9) 12/27/22 22:20 Eos # (Auto) 0.2 10^3/uL (0.0-0.8) 12/27/22 22:20 Baso # (Auto) 0.0 10^3/uL (0.0-0.1) 12/27/22 22:20 Nucleated RBC % (auto) 0 % 12/27/22 22:20 Nucleated RBCs # 0.0 /100WBC 12/27/22 22:20 Sodium 136 mmol/L (136-145) 12/27/22 22:20 Potassium 4.0 mmol/L (3.5-5.1) 12/27/22 22:20 Chloride 99 mmol/L (98-107) 12/27/22 22:20 Carbon Dioxide 21 mmol/L (22-29) L 12/27/22 22:20 Anion Gap 20.0 (5-19) H 12/27/22 22:20 BUN 46 mg/dL (8-23) H 12/27/22 22:20 Creatinine 7.9 mg/dL (0.7-1.2) H* 12/27/22 22:20 GFR Calculation 6.8 mL/min (90-130) L 12/27/22 22:20 Glucose 144 mg/dL (65-115) H 12/27/22 22:20 Calculated Osmolality 296 mOsm/kg (285-295) H 12/27/22 22:20 Calcium 7.2 mg/dL (8.5-10.5) L 12/27/22 22:20 Phosphorus 7.1 mg/dL (2.5-4.5) H 12/27/22 22:20 Magnesium 1.8 mg/dL (1.7-2.3) 12/27/22 22:20 Total Bilirubin 0.3 mg/dL (0.15-1.2) 12/27/22 22:20 AST 32 U/L (0-40) 12/27/22 22:20 ALT 27 U/L (0-41) 12/27/22 22:20 Alkaline Phosphatase 132 U/L (40-130) H 12/27/22 22:20 Troponin T Baseline 342 ng/L (0-15) H* 12/27/22 22:20 Troponin T 120 Minute 341.5 ng/L (0-15) H 12/28/22 00:40 Delta Troponin T -0.5 ABS# (0-10) L 12/28/22 00:40 NT-Pro-B Natriuret Pep 31231 pg/mL (0-125) H 12/27/22 22:20 Total Protein 5.3 g/dL (6.6-8.7) L 12/27/22 22:20 Albumin 2.8 g/dL (3.5-5.2) L 12/27/22 22:20 Globulin 2.5 g/dL (1.3-4.6) 12/27/22 22:20 Discharge Plan Discharge Patient Disposition: Placed in Observation Clinical Impression: Chest pain, End-stage renal disease on peritoneal dialysis Condition: Stable Prescriptions: No Action potassium chloride 20 mEq tablet extended release 20 meq PO QAM insulin aspart U-100 [Novolog FlexPen U-100 Insulin] 100 unit/mL (3 mL) insulin pen See Rx Instructions .ROUTE .COMPLEX Rx Instructions: 12 units tid with meals plus sliding scale nitroglycerin [Nitrostat] 0.4 mg tablet, sublingual 0.4 mg SUBLINGUAL Q5M PRN (Reason: Chest Pain) Qty: 25 2RF Rx Instructions: do not exceed 3 doses per episode ropinirole 0.25 mg tablet 0.25 mg PO DAILY RenaPlex 800 mcg- 12.5 mg tablet 1 tab PO DAILY famotidine 20 mg tablet 20 mg PO DAILY hydrocodone-acetaminophen 5-325 mg tablet 1 tab PO Q8H PRN (Reason: pain) 7 Days Qty: 20 0RF pentoxifylline 400 mg tablet extended release 400 mg PO TID Qty: 90 4RF Rx Instructions: must administer with a meal/food Bevespi Aerosphere 9-4.8 mcg HFA aerosol inhaler 2 puff inhalation BID Qty: 10.7 3RF magnesium oxide [MagOx] 400 mg (241.3 mg magnesium) Tablet 400 mg PO QAM insulin glargine [Basaglar KwikPen U-100 Insulin] 100 unit/mL (3 mL) Insulin Pen See Rx Instructions .ROUTE .COMPLEX Rx Instructions: 22-40 units according to bag used for dialysis Creon 12,000-38,000 -60,000 unit Capsule,Delayed Release(Dr/Ec) See Rx Instructions .ROUTE .COMPLEX Rx Instructions: 5 cap po with meals and 2-3 caps with snacks. levothyroxine [Euthyrox] 150 mcg Tablet 150 mcg PO QAM Rx Instructions: Take on an empty stomach sertraline 50 mg Tablet 75 mg PO QPM pregabalin [Lyrica] 150 mg Capsule 150 mg PO BEDTIME calcium acetate(phosphat bind) 667 mg capsule See Rx Instructions .ROUTE .COMPLEX Rx Instructions: Take 3 caps PO with meals and 1 cap with snack. (Do not exceed 12 caps per day). cholecalciferol (vitamin D3) 1,250 mcg (50,000 unit) capsule 50,000 unit PO Q7D Rx Instructions: on wed atorvastatin 40 mg tablet 40 mg PO QPM Qty: 90 3RF aspirin 81 mg Tablet,Delayed Release (Dr/Ec) 81 mg PO BEDTIME Qty: 120 3RF albuterol sulfate 90 mcg/actuation HFA aerosol inhaler 2 inh INHALATION Q6H PRN (Reason: shortness of breath or wheezing) Qty: 8 0RF zolpidem 5 mg tablet 5 mg PO BEDTIME amlodipine 10 mg tablet 10 mg PO DAILY 30 Days Qty: 30 0RF Referrals: Kiran Reardon MD [Primary Care Provider] - Coding Level of Care Code ED Career Services Coordinator for Anatoliy Hickman
[2022-12-28] MEDS: heparin 5,000 unit/mL INJ 1 mL IV (02:40)
[2022-12-28] MEDS: heparin drip 25,000 UNIT/500 ML PREMIX 22.86 UNIT IV (02:45)
[2022-12-28] MEDS: aspirin 325 mg Tablet PO (03:09)
--- NOTE | 2022-12-28 04:27 | ECG_ITS ---
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 Measurements Intervals Rebuck Rate: 70 P: 35 HI: 226 QRS: 192 QRSD: 107 T: 199 QT: 434 QTc: 471 Interpretive Statements SINUS RHYTHM WITH FIRST DEGREE AV BLOCK RIGHT AXIS DEVIATION [QRS AXIS > 100] MODERATE ST DEPRESSION [0.05+ mV ST DEPRESSION] SIGNIFICANT BASELINE ARTIFACT Compared to ECG 12/28/2022 00:53:17 First degree AV block now present ST (T wave) deviation now present Atrial flutter no longer present Intraventricular conduction delay no longer present T-wave abnormality no longer present Possible ischemia no longer present Electronically Signed On 12-28-2022 16:36:48 CDT by Lino Javier M.D. [id number]
--- NOTE | 2022-12-28 05:06 | PM.HP ---
Providers/Chief Complaint Admitting Physician: Sherri Salinas MD Primary Care Provider: Irene Jones Chief Complaint: chest pain, sob History of Present Illness Anshu Hurt is a 72 year old male with past medical history of CKD on peritoneal dialysis, CAD, hypertension who presents to the hospital with chief complaints of chest pain. Chest pain started in the last 24 hours, located in the center of chest. Initially patient thought he had heartburn and has been taking increased amounts of Tums. When that did not help he started to take nitro. He had to take approximately 3 sublingual nitros at home today with no relief in symptoms and decided to come to the ER for further evaluation. EKG does not show any acute ST-T wave changes. Baseline troponins are elevated in the 300 range with a positive delta at 6 hours with overall concern for NSTEMI. Patient currently has a nitro patch on. His chest pain is reduced in intensity from 7 to 8-3 on 10 with the Nitropatch however is not completely relieved. Review of Systems General: Reports: 10 or more systems reviewed and unremarkable except in HPI and below Const: Denies: fever(s), chills or body aches Eyes: Denies: change in vision, blurry vision or photophobia ENMT: Reports: hoarseness; Denies: throat pain, enlarged tonsils, odynophagia or nasal congestion Card: Denies: chest pain, palpitations, irregular heart rhythm, edema, swelling of feet/ankles, lightheadedness, pre-syncope, dyspnea on exertion or orthopnea Resp: Denies: dyspnea, productive cough, non-productive cough, wheezing, stridor, pain on inspiration, change in phlegm color, hemoptysis or chest congestion GI: Denies: abdominal pain, nausea, vomiting, hematemesis, coffee ground emesis, dysphagia, heartburn, diarrhea, constipation, GI cramping, change in stool character, hematochezia or melena : Denies: flank pain, dysuria, urinary frequency, urinary urgency, urinary hesitancy or hematuria Musc: Denies: neck pain, back pain, extremity pain, joint swelling, joint warmth or deformity Neuro: Denies: headache(s), numbness in extremities, weakness in extremities, sensory changes, difficulty walking, frequent falls, dizziness, vertigo, behavioral changes, Slurred speech present or seizure-like activity Psych: Denies: anxiety, depression, suicidal ideation or homicidal ideation Endo: Denies: polyuria, polydipsia, tired all the time, cold intolerance or hot flashes Carlos/Lymph: Denies: easy bruising or easy bleeding Medications/Allergies Home Medications Medication Instructions Recorded Confirmed Last Taken Type insulin aspart U-100 100 unit/mL See Rx Instructions .Route .COMPLEX 09/05/19 12/16/22 03/09/22 History (3 mL) subcutaneous pen (Novolog FlexPen U-100 Insulin aspart) potassium chloride 20 mEq 20 meq PO QAM 09/05/19 12/16/22 03/09/22 History tablet,extended release insulin glargine 100 unit/mL (3 See Rx Instructions .Route .COMPLEX 10/24/20 12/16/22 03/09/22 History mL) subcutaneous pen (Basaglar KwikPen U-100 Insulin) magnesium oxide 400 mg (241.3 mg 400 mg PO QAM 10/24/20 12/16/22 03/09/22 History magnesium) tablet (MagOx) albuterol sulfate 90 mcg/actuation 2 inh inhalation Q6H PRN shortness 02/17/22 12/16/22 03/09/22 Rx aerosol inhaler of breath or wheezing #8 grams calcium acetate(phosphat bind) 667 See Rx Instructions .Route .COMPLEX 02/18/22 12/16/22 03/09/22 History mg capsule cholecalciferol (vitamin D3) 1,250 50,000 unit PO Q7D 02/18/22 12/16/22 03/04/22 History mcg (50,000 unit) capsule levothyroxine 150 mcg tablet 150 mcg PO QAM 02/18/22 12/16/22 03/09/22 History (Euthyrox) [id number] See Rx Instructions .Route .COMPLEX 02/18/22 12/16/22 03/09/22 History 12,000-38,000-60,000 unit capsule,delayed rel (Creon) pregabalin 150 mg capsule (Lyrica) 150 mg PO BEDTIME 02/18/22 12/16/22 03/08/22 History sertraline 50 mg tablet 75 mg PO QPM 02/18/22 12/16/22 03/08/22 History aspirin 81 mg tablet,delayed 81 mg PO BEDTIME #120 tabs 02/21/22 12/16/22 03/09/22 Rx release atorvastatin 40 mg tablet 40 mg PO QPM #90 tabs 02/21/22 12/16/22 03/08/22 Rx nitroglycerin 0.4 mg sublingual 0.4 mg sublingual Q5M PRN Chest 04/15/22 12/16/22 Unknown Rx tablet (Nitrostat) Pain #25 tabs zolpidem 5 mg tablet 5 mg PO BEDTIME 04/23/22 12/16/22 Unknown History amlodipine 10 mg tablet 10 mg PO DAILY 30 days #30 tabs 04/24/22 12/16/22 Unknown Rx vitamin B complex with vit C-folic 1 tab PO DAILY 06/24/22 12/16/22 Unknown History acid 800 mcg-zinc 12.5 mg tablet (RenaPlex) ropinirole 0.25 mg tablet 0.25 mg PO DAILY 07/27/22 12/16/22 Unknown History hydrocodone 5 mg-acetaminophen 325 1 tab PO Q8H PRN pain 1 week #20 10/09/22 12/16/22 Unknown Rx mg tablet tabs pentoxifylline 400 mg 400 mg PO TID #90 tabs 10/09/22 12/16/22 Unknown Rx tablet,extended release famotidine 20 mg tablet 20 mg PO DAILY 11/27/22 12/16/22 Unknown History glycopyrrolate 9 mcg-formoterol 2 puff inhalation BID #10.7 grams 12/19/22 12/19/22 Unknown Rx 4.8 mcg HFA aerosol inhaler (Bevespi Aerosphere) Allergies Allergy/AdvReac Type Severity Reaction Status Date / Time CARBIDOPA-LEVODOPA Allergy Unknown Unknown Uncoded 12/16/22 11:14 PFSH Acute PFSH: Medical History Acute hypokalemia Bilateral wheezing Chest pain COPD exacerbation Coronary artery disease Depression Diabetes End stage renal disease ESRD (end stage renal disease) Essential tremor Gastroparesis Gout Hypercapnic respiratory failure Hyperlipidemia Hypertension Hypothyroidism (acquired) Lung entrapment Pancreatitis takes chronic pancrease Parkinsonian tremor Peritoneal dialysis catheter in place Pleural effusion Pneumonia Pneumonia Pulmonary nodule Stage 5 chronic kidney disease Tremor Vitiligo Weakness Surgical History History of appendectomy History of carpal tunnel release left wrist 1975 History of cholecystectomy Family History Other CAD (coronary artery disease) Cancer Diabetes Hypertension Denies family history of Stroke Social History Smoking and tobacco status: former smoker Quit status (tobacco): has quit using tobacco Year quit tobacco: 1993 Former quit date comment: 2 ppd X 20 years Alcohol intake: never Substance/Drug Use: never Household members: spouse Marital status: Vitals/I&O/Wt Last Vital Signs Temp 98.1 F 12/28/22 03:49 Pulse 76 12/28/22 03:49 Resp 14 12/28/22 03:49 BP 121/73 12/28/22 03:49 Pulse Ox 98 12/28/22 03:49 O2 Del Method Nasal Cannula 12/28/22 03:49 O2 Flow Rate 2 12/28/22 03:49 12/27/22 12/27/22 12/28/22 14:59 22:59 06:59 Intake Total 28.575 / 28.575 Balance 28.575 / 28.575 Weight last 48 hrs Weight 81.647 kg Physical Exam Narrative: General: No acute distress, AO x3 HEENT: PERRLA, pupils bilaterally equal and reactive, pallors not present Chest: Normal vesicular breath sounds, no added sounds, equal good air entry bilaterally CVS: S1-S2 regular, no murmurs, no tachycardia, no gallops, no rubs Abdomen: Soft, nontender, no organomegaly, bowel sounds present Neuro: No focal deficits, no facial deformity, AO x3, power 5/5 in all limbs Extremities: no edema, clubbing, cyanosis Data 12/27/22 22:20 12/27/22 22:20 A&P Assessment and plan (1) NSTEMI (non-ST elevated myocardial infarction): Patient with multiple comorbidities as listed above currently presenting for chest pain. EKG without acute ST-T wave changes Baseline troponin at 342, at 2 hours at 341, stable At 6 hours trended up to 360 with a delta of 20. His chest pain is still ongoing, though improved in intensity from 8 out of 10 to 3 out of 10 after being placed on a nitro patch. Overall concern for NSTEMI. Consult cardiology Heparin drip has been initiated in the emergency room Aspirin 81, statins to continue Nephrology consult to continue peritoneal dialysis while here in the hospital. N.p.o. for possible cath Attestations Medical Necessity Statement*: Anticipate greater than 2 midnight stay for NSTEMI, cardiology evaluation Coding Level of Care Code Acute Code for [facility] Diagnoses NSTEMI (non-ST elevated myocardial infarction) I21.4
[2022-12-28 05:11] LABS: Troponin 5 6HR 362.3 ng/L (0-15); Troponin 5 6HR Delta 20.3 ng/L (0-12)
[2022-12-28] MEDS: levothyroxine 150 mcg Tablet PO (05:37)
[2022-12-28 06:21] LABS: Glucose Point of Care 61 mg/dL (70-110)
--- NOTE | 2022-12-28 06:30 | USCV_ITS ---
Anshu Hurt Age: 72 Gender: M : 1950 Exam Date: 12/28/2022 09:40 Ordering Phys: Sherri Salinas MD Technologist: CT Exam Location: [facility] [place] Indication: cp,nstemi BP: 105 / 65 HR: 59 Rhythm: Sinus Technical Quality: Adequate MEASUREMENTS (Male / Female) Normal Values 2D ECHO LV Diastolic Diameter PLAX 5.1 cm 4.2 - 5.9 / 3.9 - 5.3 cm LV Systolic Diameter PLAX 3.1 cm IVS Diastolic Thickness 1.1 cm 0.6 - 1.0 / 0.6 - 0.9 cm IVS Systolic Thickness 2.2 cm LVPW Diastolic Thickness 1.4 cm 0.6 - 1.0 / 0.6 - 0.9 cm LVPW Systolic Thickness 2.4 cm LVOT Diameter 2.1 cm LV Ejection Fraction 2D Teich 69.2 % LV Ejection Fraction MOD 2C 52.1 % LV Ejection Fraction 2C AL 51.4 % LA Diameter 5.2 cm Aorta at Sinotubular Diameter 2.8 cm IVC Diameter 1.7 cm M-MODE Aortic Annulus Diameter 4.2 cm LA Ao Ratio MM 1.3 MV E Point Septal Separation 1.7 cm DOPPLER AV Peak Velocity 183.0 cm/s LVOT Peak Velocity 96.0 cm/s AV Area Cont Eq vti 2.0 cm squared AV Area Cont Eq pk 1.8 cm squared MV Area PHT 5.0 cm squared Mitral E to A Ratio 1.5 MV E' Velocity 119.0 cm/s TR Peak Velocity 147.7 cm/s TR Peak Gradient 8.7 mmHg TR Mean Velocity 118.4 cm/s TR Mean Gradient 6.1 mmHg TR Velocity Time Integral 45.6 cm TV Peak E Velocity 95.0 cm/s Right Atrial Pressure 3.0 mmHg Pulmonary Artery Systolic Pressu 11.7 mmHg PV Peak Velocity 113.0 cm/s FINDINGS Left Ventricle Normal left ventricular size and systolic function, 47 %. Mild diffuse hypokinesia of the inferior wall and the septum. Right Ventricle The right ventricle is normal in size and function. Right Atrium The right atrium is normal in size. Left Atrium Mildly increased left atrial size. Mitral Valve Thickened mitral valve. Moderate mitral annular calcification. Mildmitral valve regurgitation. Aortic Valve Thickened aortic valve. Tricuspid Valve Trace to mild tricuspid valve regurgitation. Pulmonic Valve No gross abnormalities noted Pericardium Normal pericardium without effusion. Aorta Normal ascending aorta dimension. IVC Inferior vena cava not visualized. CONCLUSIONS Normal left ventricular size and systolic function, 47 %. Mild diffuse hypokinesia of the inferior wall and the septum. Mildly increased left atrial size. Thickened mitral valve. Moderate mitral annular calcification. Mildmitral valve regurgitation. Thickened aortic valve. Trace to mild tricuspid valve regurgitation. Estimated pulmonary artery peak systolic pressure within normal limits There is no pericardial effusion. There are no intracardiac masses. Compared to the study from 04/23/2022, there is slight drop in the LV ejection fraction Dr Lucius Stapleton MD [facility] (Electronically Signed) Final Date: 28 Dec 2022 13:37 S
[2022-12-28 07:54] LABS: Glucose Point of Care 88 mg/dL (70-110)
--- NOTE | 2022-12-28 08:01 | P.CONIM_ITS ---
Providers/Reason For Consult Consulting Physician/Specialty*: ERIBERTO Stapleton MD/cardiology Reason for Consult*: Patient with chest pain and elevated troponin T, history of coronary artery disease and previous PCI Requesting Physician: Dr. Salinas Attending Physician: Sherri Salinas MD Primary Care Provider: Irene Jones History of Present Illness History of Present Illness Anshu Hurt is a 72 year old male with a history of atherosclerotic heart diseas, [id number] myocardial infarction, status post PCI of the RCA and circumflex artery in February 2022, is presenting with complaints of a prolonged episode of chest pain. This patient apparently has been in his baseline state of health up until 530 yesterday when he started having heartburn-like symptoms. He might have had some shortness of breath with the heartburn. He asked his to bring sometimes to help the symptoms. Apparently that did not help the pain. He started having the pain radiating into both arms and also slowly started getting worse. He took 2 of sublingual nitro at 5 minutes interval. It gave him some relief of the symptoms. He started having the peritoneal dialysis around 8:00. Few minutes into it he again started having the pain. He took 2 more sublingual nitro at 5 minutes in the bowel. Since there was not much relief of symptoms, he was brought to the hospital emergency room. The intensity of the pain was a round 8/10. According to the patient, this is the worst form of pain that he ever had. By the time he came to the emergency room, the pain was subsiding again. At the time of my examination, the patient is pain-free. He did not have any other associated symptoms or radiation of pain. His initial troponin T was around 340. He did not have any significant delta at 2 hours. At 6 hours, the delta was around 20. His EKG did not reveal any acute ST-T changes. The EKG quality was suboptimal. This patient has a history of hypertension, type 2 diabetes, dyslipidemia, chronic kidney disease, on peritoneal dialysis and he also has a history of Parkinson disease. No history for CVA, peripheral artery disease, kidney disease, liver disease or bleeding disorders. In February of last year, he presented with complaints of shortness of breath and features of non-ST elevation myocardial infarction. Subsequent cardiac catheterization revealed a high-grade ostial lesion in the right coronary artery and circumflex artery. He underwent PCI of these lesions. In April of last year, he presented with diabetic ulcers of his fingers. He underwent a partial amputation of the right ring finger. 6 weeks ago, he had a amputation of the right little finger. He had a Myocardial perfusion imaging in April of last year which was essentially unremarkable. Patient denies any fever, chills or cough. No other specific complaints at this point. This patient has a strong family history for premature atherosclerotic heart diseas. 4 of his brothers, out of the 5 had coronary events, starting their 40s or 50s. Father had a myocardial infarction in his 60s. Patient has a history of smoking abuse, a pack a day for 25 years which he quit 30 years ago. No alcohol abuse or any other substance abuse. Review of Systems Narrative: CONSTITUTIONAL: No fever or chills. EYES: No blurring of vision or other visual disturbances lately. ENT: No hoarseness of voice, auditory disturbances or sore throat. CARDIOVASCULAR: As mentioned above. RESPIRATORY: No significant cough. GASTROINTESTINAL: No hematemesis or melena. GENITOURINARY: End-stage renal disease, on peritoneal dialysis INTEGUMENTARY: No skin rashes or history of skin cancer. NEURO: Parkinson disease PSYCHIATRIC: No history of psychosis or major depression. HEMATOLOGIC: No bleeding disorders or significant anemia. ENDOCRINE: Type 2 diabetes MUSCULOSKELETAL: No recent joint pain or swelling. ALLERGY/IMMUNOLOGY: As mentioned above. Medications/Allergies Home Medications Medication Instructions Recorded Confirmed Last Taken Type insulin aspart U-100 100 unit/mL See Rx Instructions .Route .COMPLEX 09/05/19 12/16/22 03/09/22 History (3 mL) subcutaneous pen (Novolog FlexPen U-100 Insulin aspart) potassium chloride 20 mEq 20 meq PO QAM 09/05/19 12/16/22 03/09/22 History tablet,extended release insulin glargine 100 unit/mL (3 See Rx Instructions .Route .COMPLEX 10/24/20 12/16/22 03/09/22 History mL) subcutaneous pen (Basaglar KwikPen U-100 Insulin) magnesium oxide 400 mg (241.3 mg 400 mg PO QAM 10/24/20 12/16/22 03/09/22 History magnesium) tablet (MagOx) albuterol sulfate 90 mcg/actuation 2 inh inhalation Q6H PRN shortness 02/17/22 12/16/22 03/09/22 Rx aerosol inhaler of breath or wheezing #8 grams calcium acetate(phosphat bind) 667 See Rx Instructions .Route .COMPLEX 02/18/22 12/16/22 03/09/22 History mg capsule cholecalciferol (vitamin D3) 1,250 50,000 unit PO Q7D 02/18/22 12/16/22 03/04/22 History mcg (50,000 unit) capsule levothyroxine 150 mcg tablet 150 mcg PO QAM 02/18/22 12/16/22 03/09/22 History (Euthyrox) [id number] See Rx Instructions .Route .COMPLEX 02/18/22 12/16/22 03/09/22 History 12,000-38,000-60,000 unit capsule,delayed rel (Creon) pregabalin 150 mg capsule (Lyrica) 150 mg PO BEDTIME 02/18/22 12/16/22 03/08/22 History sertraline 50 mg tablet 75 mg PO QPM 02/18/22 12/16/22 03/08/22 History aspirin 81 mg tablet,delayed 81 mg PO BEDTIME #120 tabs 02/21/22 12/16/22 03/09/22 Rx release atorvastatin 40 mg tablet 40 mg PO QPM #90 tabs 02/21/22 12/16/22 03/08/22 Rx nitroglycerin 0.4 mg sublingual 0.4 mg sublingual Q5M PRN Chest 04/15/22 12/16/22 Unknown Rx tablet (Nitrostat) Pain #25 tabs zolpidem 5 mg tablet 5 mg PO BEDTIME 04/23/22 12/16/22 Unknown History amlodipine 10 mg tablet 10 mg PO DAILY 30 days #30 tabs 04/24/22 12/16/22 Unknown Rx vitamin B complex with vit C-folic 1 tab PO DAILY 06/24/22 12/16/22 Unknown History acid 800 mcg-zinc 12.5 mg tablet (RenaPlex) ropinirole 0.25 mg tablet 0.25 mg PO DAILY 07/27/22 12/16/22 Unknown History hydrocodone 5 mg-acetaminophen 325 1 tab PO Q8H PRN pain 1 week #20 10/09/22 12/16/22 Unknown Rx mg tablet tabs pentoxifylline 400 mg 400 mg PO TID #90 tabs 10/09/22 12/16/22 Unknown Rx tablet,extended release famotidine 20 mg tablet 20 mg PO DAILY 11/27/22 12/16/22 Unknown History glycopyrrolate 9 mcg-formoterol 2 puff inhalation BID #10.7 grams 12/19/22 12/19/22 Unknown Rx 4.8 mcg HFA aerosol inhaler (Bevespi Aerosphere) Allergies Allergy/AdvReac Type Severity Reaction Status Date / Time carbidopa [From Sinemet] Allergy Unknown Verified 12/28/22 09:01 levodopa [From Sinemet] Allergy Unknown Verified 12/28/22 09:01 Current Medications Generic Name Dose Route Start Last Admin Trade Name Freq PRN Reason Stop Dose Admin Heparin Sodium (Porcine) 0 unit 12/28/22 02:02 12/28/22 02:40 Heparin 5,000 Unit/Ml Inj 1 Ml IV 4,100 unit PRN PRN Administration Heparin weight-base protocol Protocol Heparin Sodium/Sodium Chloride 25,000 unit in 500 mls @ 0 mls/hr 12/28/22 02:15 12/28/22 04:00 Heparin Drip IV 14.09 unit/kg/hr .Q0M SHAMAR 23 mls/hr Titration Protocol Per Protocol Insulin Human Lispro 0 unit 12/28/22 08:00 12/28/22 07:50 Insulin Lispro 100 Unit/1 Ml SUBCUT Not Given WM&BEDTIME SHAMAR Protocol Levothyroxine Sodium 150 mcg 12/28/22 06:00 12/28/22 05:37 Levothyroxine 150 Mcg Tablet PO 150 mcg QAM SHAMAR Administration PFSH Acute PFSH: Medical History Acute hypokalemia Bilateral wheezing Chest pain COPD exacerbation Coronary artery disease Depression Diabetes End stage renal disease ESRD (end stage renal disease) Essential tremor Gastroparesis Gout Hypercapnic respiratory failure Hyperlipidemia Hypertension Hypothyroidism (acquired) Lung entrapment Pancreatitis takes chronic pancrease Parkinsonian tremor Peritoneal dialysis catheter in place Pleural effusion Pneumonia Pneumonia Pulmonary nodule Stage 5 chronic kidney disease Tremor Vitiligo Weakness Surgical History History of appendectomy History of carpal tunnel release left wrist 1975 History of cholecystectomy Family History Other CAD (coronary artery disease) Cancer Diabetes Hypertension Denies family history of Stroke Social History Smoking and tobacco status: former smoker Quit status (tobacco): has quit using tobacco Year quit tobacco: 1993 Former quit date comment: 2 ppd X 20 years Alcohol intake: never Substance/Drug Use: never Household members: spouse Marital status: Vitals/I&O/Wt Last Vital Signs Temp 98.1 F 12/28/22 03:49 Pulse 70 12/28/22 06:00 Resp 18 12/28/22 04:50 BP 121/73 12/28/22 05:20 Pulse Ox 96 12/28/22 05:15 O2 Del Method Nasal Cannula 12/28/22 03:49 O2 Flow Rate 2 12/28/22 03:49 12/27/22 12/28/22 12/28/22 22:59 06:59 14:59 Intake Total 28.575 / 28.575 Balance 28.575 / 28.575 Weight last 48 hrs Weight 180 lb Physical Exam Narrative: GENERAL: The patient is alert and oriented times three. Not in any acute distress. HEENT: No significant pallor, icterus or lymphadenopathy.Oral cavity: There are no mucous membrane lesions. NECK: Trachea appears to be central. No masses noted. No JVD or thyromegaly appreciated. RESPIRATORY: Chest is symmetrical. No intercostals muscle retraction or any accessory muscle activation. There is no chest wall tenderness. Breath sounds are heard bilaterally. No rales or rhonchi heard. No evidence of any consolidation. BREASTS: Deferred. HEART: The heart sounds are normal. No S3 or S4. No systolic murmur the left sternal border. No diastolic murmurs.. No pericardial rub ABDOMEN: No vessel pulsations or distention. No tenderness. No organomegaly appreciated. Bowel sounds are normally heard. : Deferred. RECTAL: Deferred. LYMPHATIC: No lymphadenopathy noted in the neck. EXTREMITIES: No edema or cyanosis. No clubbing. MUSCULOSKELETAL: No acute joint deformities or swelling SKIN: Patient has extensive vitiligo NEUROPSYCHIATRIC: The patient is alert and oriented x3. Appears to be in a good mood. No tremors or rigidity noted. Data 12/27/22 22:20 12/27/22 22:20 Other Labs: Laboratory Last Values WBC 10.0 10^3/uL (4.0-10.0) 12/27/22 22:20 RBC 2.60 10^6/uL (4.1-5.3) L 12/27/22 22:20 Hgb 8.0 g/dL (11.7-16.6) L 12/27/22 22:20 Hct 24.2 % (42.0-52.0) L 12/27/22 22:20 MCV 93.1 fl (80-94) 12/27/22 22:20 MCH 30.8 pg (28.0-34.0) 12/27/22 22:20 MCHC 33.1 g/dL (30.0-36.0) 12/27/22 22:20 RDW 13.4 % (12.1-15.1) 12/27/22 22:20 Plt Count 122 10^3/cmm (130-400) L 12/27/22 22:20 MPV 10.0 fL (7.4-10.4) 12/27/22 22:20 Neut % (Auto) 75.9 % 12/27/22 22:20 Lymph % (Auto) 12.7 % 12/27/22 22:20 [place] % (Auto) 8.8 % 12/27/22 22:20 Eos % (Auto) 1.9 % 12/27/22 22:20 Baso % (Auto) 0.2 % 12/27/22 22:20 Neut # (Auto) 7.57 10^3/uL (1.8-7.7) 12/27/22 22:20 Lymph # (Auto) 1.3 10^3/uL (0.8-4.8) 12/27/22 22:20 [place] # (Auto) 0.9 10^3/uL (0.2-0.9) 12/27/22 22:20 Eos # (Auto) 0.2 10^3/uL (0.0-0.8) 12/27/22 22:20 Baso # (Auto) 0.0 10^3/uL (0.0-0.1) 12/27/22 22:20 Nucleated RBC % (auto) 0 % 12/27/22 22:20 Nucleated RBCs # 0.0 /100WBC 12/27/22 22:20 Sodium 136 mmol/L (136-145) 12/27/22 22:20 Potassium 4.0 mmol/L (3.5-5.1) 12/27/22 22:20 Chloride 99 mmol/L (98-107) 12/27/22 22:20 Carbon Dioxide 21 mmol/L (22-29) L 12/27/22 22:20 Anion Gap 20.0 (5-19) H 12/27/22 22:20 BUN 46 mg/dL (8-23) H 12/27/22 22:20 Creatinine 7.9 mg/dL (0.7-1.2) H* 12/27/22 22:20 GFR Calculation 6.8 mL/min (90-130) L 12/27/22 22:20 Glucose 144 mg/dL (65-115) H 12/27/22 22:20 POC Glucose 88 mg/dL (70-110) 12/28/22 07:51 Calculated Osmolality 296 mOsm/kg (285-295) H 12/27/22 22:20 Calcium 7.2 mg/dL (8.5-10.5) L 12/27/22 22:20 Phosphorus 7.1 mg/dL (2.5-4.5) H 12/27/22 22:20 Magnesium 1.8 mg/dL (1.7-2.3) 12/27/22 22:20 Total Bilirubin 0.3 mg/dL (0.15-1.2) 12/27/22 22:20 AST 32 U/L (0-40) 12/27/22 22:20 ALT 27 U/L (0-41) 12/27/22 22:20 Alkaline Phosphatase 132 U/L (40-130) H 12/27/22 22:20 Troponin T Baseline 342 ng/L (0-15) H* 12/27/22 22:20 Troponin T 120 Minute 341.5 ng/L (0-15) H 12/28/22 00:40 Delta Troponin T -0.5 ABS# (0-10) L 12/28/22 00:40 Troponin T Hi Sens 6Hr 362.3 ng/L (0-15) H 12/28/22 04:38 Troponin T Hi Sens 6Hr Delta 20.3 ng/L (0-12) H* 12/28/22 04:38 NT-Pro-B Natriuret Pep 11772 pg/mL (0-125) H 12/27/22 22:20 Total Protein 5.3 g/dL (6.6-8.7) L 12/27/22 22:20 Albumin 2.8 g/dL (3.5-5.2) L 12/27/22 22:20 Globulin 2.5 g/dL (1.3-4.6) 12/27/22 22:20 Cardiac catheterization: My impression: On February 20, 2022 Left Main mild 20% ostial stenosis. ? * Mid Left Anterior Descending: moderate 40% stenosis, JOANNA: 3 flow. ? * Ostial to Proximal Right Coronary Artery: significant? 80% stenosis, JOANNA: 3 flow. ? * Ostial to Proximal Circumflex: severe, calcified 90% stenosis, JOANNA: 3 flow. ? * INDICATION: NSTEMI/ Abnormal stress test. ? * Coronary angiography shows right dominance. Myocardial perfusion imaging: My impression: 04/23/2022 1. Myocardial perfusion imaging is normal. ?2. The left ventricular ejection fraction is mildly reduced with a value of ?48%. ?3. There is mild global hypokinesis. ?4. No EKG changes with Lexiscan infusion.? Refer to separate report for ?details. EKG 1: My Interpretation: EKG shows regular supraventricular rhythm. Because of the heavy baseline artifact it is otherwise uninterpretable. A&P Assessment and plan (1) NSTEMI (non-ST elevated myocardial infarction): Clinical features of a non-ST elevation myocardial infarction. He may be continued on IV heparin, p.o. aspirin/Plavix, beta blockers and other symptomatic measures. (2) Atherosclerotic heart disease of [place] coronary artery with unstable angina pectoris: Patient had the cardiac catheterization on 20 February last year. He had mild left main disease. High-grade lesions in the ostium of the right coronary artery and circumflex artery. He underwent PCI of these lesions. Apparently had unremarkable Myocardial perfusion imaging in April of last year. In view of his current symptoms, he requires a repeat cardiac catheterization to reevaluate the coronary arteries and decide on further management. (3) End-stage renal disease on peritoneal dialysis: Patient is on peritoneal dialysis. He may continue on his schedule. (4) Hyperlipidemia: Patient is on Lipitor. This may be continued. Qualifiers: Hyperlipidemia type: unspecified Qualified Code(s): E78.5 - Hyperlipidemia, unspecified (5) Hypertension: The blood pressure is under control. May continue on the current medications. Qualifiers: Hypertension type: essential hypertension Qualified Code(s): I10 - Essential (primary) hypertension (6) Parkinson disease: Patient has intentional tremor.? Essential tremor versus Parkinson's. Management as per the primary Plan An echocardiogram would be appropriate evaluate LV function and rule out any other pathology. This patient is being followed by Dr. Javier in the clinic. In view of his clinical presentation, he may benefit from a cardiac catheterization. I will be discussing this with Dr. Javier. In the meanwhile, patient may be kept NPO. The current medications may be continued. Based on the results of the above tests and the patient's clinical progress, further recommendations will be made. Thank you for the opportunity to evaluate this patient and make these recom mendations Coding Level of Care Code 50296 Diagnoses NSTEMI (non-ST elevated myocardial infarction) I21.4 Atherosclerotic heart disease of [place] coronary artery with unstable angina pectoris I25.110 End-stage renal disease on peritoneal dialysis N18.6; Z99.2 Hyperlipidemia E78.5 Hyperlipidemia type: unspecified Hypertension I10 Hypertension type: essential hypertension Parkinson disease G20
[2022-12-28 08:33] LABS: Partial Thromboplastin Time 151.4 SECONDS (23.9-36.7)
[2022-12-28] MEDS: ropinirole 0.25 mg Tablet PO (08:40)
[2022-12-28] MEDS: pantoprazole DR 40 mg Tablet PO (08:40)
[2022-12-28] MEDS: amlodipine 10 mg Tablet PO (08:41)
--- NOTE | 2022-12-28 08:57 | XACV_ITS ---
Exam Room: [facility] Ht: 180 cm Wt: 82 kg BSA: 2.03 m2 Gender: Male : 1950 Any Known Allergies: Other Exam Priority: Routine Procedure(s): Procedure Description: Diagnostic procedure Procedure Description: PCI procedure Procedure Description: Drug Eluting Coronary Stent Procedure Description: PTCA Procedure Description: Miscellaneous Procedure Description: ACT Procedure Description: Coronary Angiography Diagnostic Cath Status: Urgent Diagnostic Findings * Left Main: Ostial 30% stenosis, JOANNA: 3 flow. * Ostial Right Coronary Artery: obstructive 60% instent restenosis, JOANNA: 3 flow. * Circumflex has no significant disease. * Proximal Left Anterior Descending: moderate 50% stenosis, JOANNA: 3 flow. * Mid Left Anterior Descending: mild 40% stenosis, JOANNA: 3 flow. * Proximal Right Coronary Artery: severe 90% stenosis, JOANNA: 3 flow. * Coronary angiography shows right dominance. PCI Status: Urgent PCI Indication: Other Interventional Findings * PRCOEDURE DETAIL: Procedure details: We engaged RCA with a JR4 guide catheter. IV heparin was administered to maintain an ACT above 250 seconds. A 0.014 run-through guidewire was used to cross the stenosis and was placed in distal vessel. 3 x 12 mm semicompliant balloon was used to predilate the stenosis. This was followed by predilation with a 3.0x15mm Scoreflex balloon. We then predilated with [id number] balloon. This was followed by placement of 3.5x 15mm resolute Ruth drug-eluting stent. We postdilated the proximal part of stent with 4.0x8 mm NC balloon at high pressure. We then dilated prior ostial RCA stent with 3.5 mm NC balloon. At this time guidewire and guide catheter were removed.At this time final angiogram was performed that showed excellent stent expansion, JOANNA-3 flow. Patient left the Proposal Writer in a stable condition.. * Proximal Right Coronary Artery: 90% stenosis treated with a AB TREK 3.00X12 RX BALLOON, 3.0x15 Scoreflex, MDT NC EUPHORA RX [id number] BALLOON, MDT R RUTH 3.5X15 VIRGINIE, and MDT NC EUPHORA RX [id number] BALLOON. 0% residual stenosis, JOANNA: 3 flow. Conclusions 1. Severe proximal RCA stenosis status post successful revascularization with VIRGINIE x1. 2. Balloon angioplasty of ostial RCA stent also performed.. 3. Proximal Right Coronary Artery was treated with a Balloon, Balloon, Balloon, Drug Eluting Stent, and Balloon. Recommendations * Dual antiplatelet therapy with aspirin and Plavix for atleast 1 year. * Arnoldo intensity statin therapy. * Outpatient stress test to assess ischemia in the Left main artery/LAD territory. * Outpatient cardiology follow up in 4 weeks. Interventional RX Recommendation: PCI w/o planned CABG Diagnostic RX Recommendation: PCI w/o planned CABG Anticoagulation: Heparin Pressures Phase:Rest AO : 82 / 48 ( 62 ) @ 1:12:00 PM 111 / 45 ( 68 ) @ 1:15:00 PM Clinical Evaluation EBL: 5mL-10mL Procedural Details Pre-Procedure Time Out. Identified patient by full name and date of as verbalized by the patient/guarantor. Does the consent match the physician's order: Yes. Accurate & Complete Informed Consent: Yes. Inpatient/Outpatient History & Physical on Chart: Yes. If H&P is completed, is and addenduem needed: No; If yes, is the addendum complete: N/A. Visualize and Verify Site with Patient/Guarantor: N/A. Relevant Radiology Images available: Yes. Pre-op teaching completed and patient verbalized understanding. The risks, benefits, and alternatives of sedation and/or procedure were discussed by physician. The patient agrees to continue. Procedure started. Physician arrived. Current Diagnosis : NSTEMI. [facility] Clinical Fraility Score: 3: Managing Well. Proposal Writer Indications: ACS > 24 hours. Chest Pain Symptom Assessment: Typical Angina Symptoms. Correct patient, site and procedure confirmed by cath team. Current diagnosis: NSTEMI. PERRLA. Strong, equal hand heavy lift rigger bilaterally. Lungs clear x 5 lobes. IV Site on Arrival: 18 gauge in the left anticubital. IV Fluids: 0.9% NaCl at KVO. 200 mL infused prior to labor contractor. Oxygen started at 2liters/min via nasal canula. bilateral groins was prepped with chloroprep then draped in the usual sterile fashion. Baseline sample Acquired. HR: 63 BPM. Physician scrubbed in. Immediate Pre-Procedure Time Out. Correct Patient: Yes; Correct Procedure: Yes; Correct Site: Yes; Correct Patient Position: Yes; Correct Supplies: Yes; Dried Flammable Prep: Yes; Blood Products Available: N/A;. Lidocaine 1% infiltrated to the right groin. Arterial access obtained with micropuncture set. A 6 [place] JL4 catheter in over wire. Multiple views taken of left coronary artery. Catheter removed over the exchange wire. A 6 [place] JR4 catheter in over wire. Multiple views taken of right coronary artery. Catheter removed over the exchange wire. 6 [place] JR 4 guide catheter was inserted over the wire. Runthrough guidewire was advanced through the guide catheter to lesion in the prox RCA. 3.0X12 Balloon inserted OTW. Balloon unable to cross lesion. Balloon out OTW. Guideliner inserted OTW. Inflation number : 1 A AB TREK 3.00X12 RX BALLOON was prepped and advanced across the Prox RCA , then inflated to 8 MIKE for 0:11 seconds. Inflation number: 2 The AB TREK 3.00X12 RX BALLOON was reinflated across the Prox RCA, to 14 MIKE for 0:21 seconds. Inflation number: 3 The AB TREK 3.00X12 RX BALLOON was reinflated across the Prox RCA, to 14 MIKE for 0:18 seconds. Balloon out. Inflation number : 4 A 3.0x15 Scoreflex was prepped and advanced across the Prox RCA , then inflated to 12 MIKE for 0:30 seconds. Inflation number: 5 The 3.0x15 Scoreflex was reinflated across the Prox RCA, to 12 MIKE for 0:34 seconds. Balloon out. Inflation number : 6 A MDT NC EUPHORA RX [id number] BALLOON was prepped and advanced across the Prox RCA , then inflated to 20 MIKE for 0:29 seconds. Inflation number: 7 The MDT NC EUPHORA RX [id number] BALLOON was reinflated across the Prox RCA, to 12 MIKE for 0:13 seconds. Balloon out. Results checked. Inflation Number : 8 A MDT R RUTH 3.5X15 VIRGINIE -Lot Number# _[id number] EXP:04/16/2024 was prepped and advanced across the Prox RCA. The stent was deployed at 12 MIKE for 0:22 seconds. Stent balloon out over wire. Inflation number : 9 A MDT NC EUPHORA RX [id number] BALLOON was prepped and advanced across the Prox RCA , then inflated to 14 MIKE for 0:24 seconds. Inflation number: 10 The MDT NC EUPHORA RX 4.23Q60MS BALLOON was reinflated across the Prox RCA, to 26 MIKE for 0:18 seconds. Balloon out. Guideliner out. Results checked. Inflation number: 11 The MDT NC EUPHORA RX [id number] BALLOON was reinflated across the Prox RCA, to 14 MIKE for 0:20 seconds. Balloon out. Wire out. Guide catheter out. ACT drawn. Results 318 seconds. Therapeutic limits - pre-heparin administration 90-150 seconds and monitoring heparin during a vascular procedure >250 seconds. A Suture was successful obtaining hemostatsis at the Right Femoral artery insertion site. Sheath(s) sutured into position with 2-0 silk and sterile 4x4's and Op-site applied over the site. No oozing or signs and symptoms of hematoma noted. Arterial sheath flushed and connected to tranducer and pressure bag with heparinized saline. Post Procedure: Pulses reassessed and unchanged. PERRLA. Strong, equal hand heavy lift rigger bilaterally. No VTE prophylaxis required. Medication's Wasted: Lidocaine 1% = 1 mL. Medication's Wasted: Other = Fentanyl 25mcg Versed 1 mg. Medication's Wasted: Heparin = 1000 units. Total IV fluids: 77 mL. Complications: None. Estimated blood loss: 5mL-10mL. Responsiveness - Normal response to verbal stimuli; alert and oriented, PERRLA. Airway - Unaffected, no intervention required; spontaneous ventilation. Circulation: W/N/L, pulses unchanged. Nausea/Vomiting: No. Procedure completed. Vital chart was stopped. Access Site Site: Right Femoral artery Sheath Size: 6 Fr Hemostasis Method: Suture Hemostasis Success: Successful Procedure Medications Start: 11:59 AM Stop: 11:59 AM Medication: Versed Amount: 1 mg Route: I.V. Start: 11:59 AM Stop: 11:59 AM Medication: Fentanyl Amount: 50 mcg Route: I.V. Start: 12:19 PM Stop: 12:19 PM Medication: Heparin Amount: 6000 units Route: I.V. Start: 12:29 PM Stop: 12:29 PM Medication: Heparin Amount: 1000 units Route: I.V. Start: 12:43 PM Stop: 12:43 PM Medication: Heparin Amount: 1000 units Route: I.V. Start: 12:46 PM Stop: 12:46 PM Medication: Fentanyl Amount: 25 mcg Route: I.V. Start: 12:52 PM Stop: 12:52 PM Medication: Plavix Amount: 600 mg Route: P.O. I, the attending physician, have reviewed and verified all procedure medications. Yes, all medications given per verbal order History/Risk Factors Hypertension: Yes Dyslipidemia: Yes Peripheral Arterial Disease (PAD): No Myocardial Infarction (IL): Yes Obesity: No Renal Disease: Yes Tobacco Use: Former Dialysis: Current Prior Interventions PCI: Yes CABG: No Valve Surgery: No Date of PCI: 12/28/2022 Report Signatures Finalized by Lino Javier MD on 01/09/2023 12:52 PM
[2022-12-28] MEDS: dextrose 5% 1,000 ML 100 ML IV ×2 (09:34→19:08)
--- NOTE | 2022-12-28 09:57 | PC.PHAR ---
pts verified pts medications-pts states the pt is not taking pantoprazole 40mg daily filled 12/16/22 90d/s,pentoxifylline er 400mg tid rx filled 11/03/22 26d/s,kcl 20meq daily filled 09/10/22 90d/s or omeprazole 20mg bid filled 09/10/22 90d/s-notes are made in the pharmacy comments
--- NOTE | 2022-12-28 10:02 | P.CONIM_ITS ---
Providers/Reason For Consult Consulting Physician/Specialty*: [facility]/Nephrology Reason for Consult*: ESRD Attending Physician: Rony Duran MD Primary Care Provider: Irene Jones History of Present Illness History of Present Illness Asnhu Hurt is a 72 year old male With past medical history of end-stage renal disease on hemodialysis-APD x10 hours, to a low and 1 purple bag overnight, coronary artery disease, hypertension, presented to the emergency department complaining of chest pain, he has history of prior coronary artery disease with PCI to RCA and Lcx in February 2022. Patient noted to have troponin elevation and currently on heparin drip for possible NSTEMI and cardiology consulted. Plan for left heart catheterization today. Patient did 1 exchange last night but discontinued PD due to chest pain and presented to the ED. Review of Systems Narrative: other ROS negative Medications/Allergies Home Medications Medication Instructions Recorded Confirmed Last Taken Type insulin aspart U-100 100 unit/mL See Rx Instructions .Route .COMPLEX 09/05/19 12/28/22 03/09/22 History (3 mL) subcutaneous pen (Novolog FlexPen U-100 Insulin aspart) insulin glargine 100 unit/mL (3 See Rx Instructions .Route .COMPLEX 10/24/20 12/28/22 03/09/22 History mL) subcutaneous pen (Basaglar KwikPen U-100 Insulin) magnesium oxide 400 mg (241.3 mg 400 mg PO QAM 10/24/20 12/28/22 03/09/22 History magnesium) tablet (MagOx) calcium acetate(phosphat bind) 667 See Rx Instructions .Route .COMPLEX 02/18/22 12/28/22 03/09/22 History mg capsule cholecalciferol (vitamin D3) 1,250 50,000 unit PO Q7D 02/18/22 12/28/22 03/04/22 History mcg (50,000 unit) capsule levothyroxine 150 mcg tablet 150 mcg PO QAM 02/18/22 12/28/22 03/09/22 History (Euthyrox) [id number] See Rx Instructions .Route .COMPLEX 02/18/22 12/28/22 03/09/22 History 12,000-38,000-60,000 unit capsule,delayed rel (Creon) pregabalin 150 mg capsule (Lyrica) 150 mg PO QPM 02/18/22 12/28/22 03/08/22 History sertraline 50 mg tablet 75 mg PO QPM 02/18/22 12/28/22 03/08/22 History aspirin 81 mg tablet,delayed 81 mg PO BEDTIME #120 tabs 02/21/22 12/28/22 03/09/22 Rx release atorvastatin 40 mg tablet 40 mg PO QPM #90 tabs 02/21/22 12/28/22 03/08/22 Rx nitroglycerin 0.4 mg sublingual 0.4 mg sublingual Q5M PRN Chest 04/15/22 12/28/22 Unknown Rx tablet (Nitrostat) Pain #25 tabs famotidine 20 mg tablet 20 mg PO DAILY 11/27/22 12/28/22 Unknown History glycopyrrolate 9 mcg-formoterol 2 puff inhalation BID #10.7 grams 12/19/22 0 12/28/22 Unknown Rx 4.8 mcg HFA aerosol inhaler (Bevespi Epiphytephere) albuterol sulfate 2.5 mg/3 mL 2.5 mg inhalation Q6H PRN 12/28/22 12/28/22 Unknown History (0.083 %) solution for nebulization Shortness Of Breath albuterol sulfate 90 mcg/actuation 1 - 2 puff inhalation Q4H PRN 12/28/22 12/28/22 Unknown History aerosol inhaler Shortness Of Breath amlodipine 10 mg tablet 10 mg PO QAM 12/28/22 12/28/22 Unknown History gentamicin 0.1 % topical cream See Rx Instructions .Route .COMPLEX 12/28/22 12/28/22 Unknown History naloxone 4 mg/actuation nasal spray See Rx Instructions .Route .COMPLEX 12/28/22 12/28/22 Unknown History ondansetron 8 mg disintegrating 8 mg PO Q6H PRN Nausea And Vomiting 12/28/22 12/28/22 Unknown History tablet ropinirole 0.5 mg tablet 0.5 mg PO BEDTIME 12/28/22 12/28/22 Unknown History vit B,C-folic ac 800 mcg-zinc 12.5 1 tab PO QAM 12/28/22 12/28/22 Unknown History mg-selen-D3 2,000 unit-vit E tablet (RenaPlex-D) zolpidem 10 mg tablet 10 mg PO BEDTIME 12/28/22 12/28/22 Unknown History Allergies Allergy/AdvReac Type Severity Reaction Status Date / Time carbidopa [From Sinemet] Allergy Unknown Verified 12/28/22 09:01 levodopa [From Sinemet] Allergy Unknown Verified 12/28/22 09:01 Current Medications Generic Name Dose Route Start Last Admin Trade Name Freq PRN Reason Stop Dose Admin Amlodipine Besylate 10 mg 12/28/22 09:00 12/28/22 08:41 Amlodipine 10 Mg Tablet PO 10 mg DAILY SHAMAR Administration Heparin Sodium (Porcine) 0 unit 12/28/22 02:02 12/28/22 02:40 Heparin 5,000 Unit/Ml Inj 1 Ml IV 4,100 unit PRN PRN Administration Heparin weight-base protocol Protocol Heparin Sodium/Sodium Chloride 25,000 unit in 500 mls @ 0 mls/hr 12/28/22 02:15 12/28/22 08:36 Heparin Drip IV 0 unit/kg/hr .Q0M SHAMAR 0 mls/hr Titration Protocol Per Protocol Dextrose 1,000 mls @ 100 mls/hr 12/28/22 09:00 12/28/22 09:34 D5w IV 100 mls/hr .Q10H SHAMAR Administration Insulin Human Lispro 0 unit 12/28/22 08:00 12/28/22 07:50 Insulin Lispro 100 Unit/1 Ml SUBCUT Not Given WM&BEDTIME SHAMAR Protocol Levothyroxine Sodium 150 mcg 12/28/22 06:00 12/28/22 05:37 Levothyroxine 150 Mcg Tablet PO 150 mcg QAM SHAMAR Administration Pantoprazole Sodium 40 mg 12/28/22 09:00 12/28/22 08:[address] 40 Mg Tablet PO 40 mg DAILY SHAMAR Administration Ropinirole HCl 0.25 mg 12/28/22 09:00 12/28/22 08:40 Ropinirole 0.25 Mg Tablet PO 0.25 mg DAILY SHAMAR Administration PFSH Acute PFSH: Medical History Acute hypokalemia Bilateral wheezing Chest pain COPD exacerbation Coronary artery disease Depression Diabetes End stage renal disease ESRD (end stage renal disease) Essential tremor Gastroparesis Gout Hypercapnic respiratory failure Hyperlipidemia Hypertension Hypothyroidism (acquired) Lung entrapment Pancreatitis takes chronic pancrease Parkinsonian tremor Peritoneal dialysis catheter in place Pleural effusion Pneumonia Pneumonia Pulmonary nodule Stage 5 chronic kidney disease Tremor Vitiligo Weakness Surgical History History of appendectomy History of carpal tunnel release left wrist 1975 History of cholecystectomy Family History Other CAD (coronary artery disease) Cancer Diabetes Hypertension Denies family history of Stroke Social History Smoking and tobacco status: former smoker Quit status (tobacco): has quit using tobacco Year quit tobacco: 1993 Former quit date comment: 2 ppd X 20 years Alcohol intake: never Substance/Drug Use: never Household members: spouse Marital status: Vitals/I&O/Wt Last Vital Signs Temp 98.1 F 12/28/22 03:49 Pulse 61 12/28/22 08:40 Resp 12 12/28/22 08:40 BP 105/65 12/28/22 08:40 Pulse Ox 91 12/28/22 08:40 O2 Del Method Room Air 12/28/22 08:40 O2 Flow Rate 2 12/28/22 08:00 12/27/22 12/28/22 12/28/22 22:59 06:59 14:59 Intake Total 28.575 / 28.575 105.8 / 105.8 Balance 28.575 / 28.575 105.8 / 105.8 Weight last 48 hrs Weight 81.647 kg Physical Exam Narrative: awake , laert no distress S1S2 RRR per report Lungs clear per report No edema Data 12/27/22 22:20 12/27/22 22:20 A&P Assessment and plan (1) End-stage renal disease on peritoneal dialysis: Plan 1. End-stage renal disease: On peritoneal dialysis, with a PD x10 hours, 6 L, 2 x 2.5% dextrose solution and 1x 4.25% dextrose solution. -Discussed with patient's at bedside, they will bring home APD machine tonight and will continue PD as his home prescription. 2. History of hypertension: Blood pressure controlled 3. Anemia: Secondary to end-stage renal disease, monitor, YOSSI ordered 4. NSTEMI: Plan for left heart cath, cardiology following patient evaluated using audiovisual cart. Time spent 45 minutes Consult Attestations Medical Necessity Statement: per medicine Coding Level of Care Code Acute Code for Chg Fwd Diagnoses End-stage renal disease on peritoneal dialysis N18.6; Z99.2
--- NOTE | 2022-12-28 12:01 | W.PM.OPSUD ---
Surgery/Procedure H&P Update DATE OF PROCEDURE: December 28, 2022 DATE H&P PERFORMED: 12/28/22 H&P UPDATE INFORMATION: I have reviewed H&P completed within last 30 days, I have examined patient prior to procedure and No changes to prior documentation PREOP DIAGNOSIS: Unstable angina PRIMARY INDICATION FOR PROCEDURE: Unstable angina PLANNED PROCEDURE: Left heart cath with possible percutaneous coronary intervention PATIENT REASSESSED PRIOR TO SEDATION, WITH NO CHANGE NOTED: Yes PHYSICAL EXAM: alert, oriented x 3, clear to auscultation bilaterally and regular rate & rhythm AIRWAY EVAL/ANESTHESIA PLAN: normal airway, ASA III, Local Anesthesia, Risks, benefits & alternatives of sedation and/or procedure discussed and Patient agrees to continue as planned ADDITIONAL INFORMATION: Moderate sedation
--- NOTE | 2022-12-28 12:21 | PC.NURSE ---
1148 patient off unit to offset label rewinder.
--- NOTE | 2022-12-28 13:33 | PC.NURSE ---
arrived back to unit from 1301
--- NOTE | 2022-12-28 13:38 | PM.PN ---
Subjective Subjective: Patient was seen in the morning, no chest pain currently, heparin drip on hold due to elevated PTT, no shortness of breath, no abdominal pain, Vitals/I&O/Wt Last Vital Signs Temp 98.4 F 12/28/22 11:15 Pulse 74 12/28/22 11:15 Resp 18 12/28/22 11:15 BP 105/65 12/28/22 11:15 Pulse Ox 90 12/28/22 11:15 O2 Del Method Nasal Cannula 12/28/22 11:15 O2 Flow Rate 2 12/28/22 08:00 12/27/22 12/28/22 12/28/22 22:59 06:59 14:59 Intake Total 28.575 / 28.575 105.8 / 105.8 Balance 28.575 / 28.575 105.8 / 105.8 Weight last 48 hrs Weight 81.647 kg Physical Exam Const: COMMON NORMALS: no acute distress and patient oriented x3 Resp: COMMON NORMALS: normal respiratory effort, No retractions, No use of accessory muscles and clear to auscultation bilaterally AUSCULTATION: clear to auscultation bilaterally Cardio: COMMON NORMALS: regular rate, regular rhythm, S1 normal heart sound present and S2 normal heart sound present RATE: regular rate RHYTHM: regular rhythm HEART SOUNDS: S1 normal heart sound present and S2 normal heart sound present GI: COMMON NORMALS: Normal to inspection, nondistended, normoactive bowel sounds present and non-tender Extremity: COMMON NORMALS: no pedal edema Neuro: COMMON NORMALS: patient oriented x3 Psych: COMMON NORMALS: mental status grossly normal Data 12/27/22 22:20 12/27/22 22:20 A&P Assessment and plan (1) NSTEMI (non-ST elevated myocardial infarction): Patient with multiple comorbidities as listed above currently presenting for chest pain. EKG without acute ST-T wave changes Baseline troponin at 342, at 2 hours at 341, stable At 6 hours trended up to 360 with a delta of 20. His chest pain is still ongoing, though improved in intensity from 8 out of 10 to 3 out of 10 after being placed on a nitro patch. Overall concern for NSTEMI. Consult cardiology Heparin drip has been initiated in the emergency room, currently on hold due to elevated PTT Aspirin 81, statins to continue Nephrology consult to continue peritoneal dialysis while here in the hospital. N.p.o. for cath today Spoke to nursing staff, Attestations Medical Necessity Statement*: Patient requires hospitalization for coronary angiography, receiving peritoneal dialysis, and High MDM includes number and complexity of problems actively addressed during encounter, amount and/or complexity of data reviewed/ordered and described risk of complication, morbidity or mortality of management as documented Diagnoses NSTEMI (non-ST elevated myocardial infarction) I21.4
[2022-12-28] MEDS: HYDROcodone-acetaminophen 5-325 mg Tablet 1 TAB PO (13:40)
[2022-12-28 16:07] LABS: Partial Thromboplastin Time 158.3 SECONDS (23.9-36.7)
[2022-12-28] MEDS: acetaminophen 325 mg Tablet 650 MG PO (17:38)
[2022-12-28] MEDS: sertraline 50 mg Tablet 75 MG PO (17:39)
[2022-12-28] MEDS: atorvastatin 40 mg Tablet PO (17:42)
[2022-12-28 17:59] LABS: Partial Thromboplastin Time 43.7 SECONDS (23.9-36.7)
[2022-12-28] MEDS: calcium acetate 667 mg Capsule PO (18:25)
--- NOTE | 2022-12-28 19:30 | PC.NURSE ---
explained procedure to patient about removal of sheath. patient verbalized understanding. 6 fringe sheath pulled at 1837. Pressure held for 20 minutes. no hematoma developed, no bruising around site. Patient and instructed that patient has to remain bedrest for 6 hrs. patient and verbalize understanding
[2022-12-28] MEDS: zolpidem 5 mg Tablet PO (20:12)
[2022-12-28] MEDS: pregabalin 150 mg Capsule PO (20:12)
[2022-12-28] MEDS: aspirin 81 mg EC Tablet PO (20:12)
[2022-12-29] VITALS (18 sets, daily range): BP systolic 93–139; BP diastolic 51–73; PULSE 71–86; RESP 15–24; TEMP 36.6–37.4; O2SAT 90–100
[2022-12-29] MEDS: levothyroxine 150 mcg Tablet PO (05:30)
[2022-12-29 06:26] LABS: Basophils % 0.3 %; Eosinophils # 0.2 10^3/uL (0.0-0.8); Eosinophils % 1.9 %; Hematocrit 23.6 % (42.0-52.0); Hemoglobin 7.8 g/dL (11.7-16.6); Lymphocytes # 1.1 10^3/uL (0.8-4.8); Lymphocytes % 9.4 %; Mean Corpuscular HGB Conc 33.1 g/dL (30.0-36.0); Mean Corpuscular Hemoglobin 30.6 pg (28.0-34.0); Mean Corpuscular Volume 92.5 fl (80-94); Mean Platelet Volume 11.1 fL (7.4-10.4); Monocytes # 0.9 10^3/uL (0.2-0.9); Monocytes % 7.5 %; Neutrophils # 9.58 10^3/uL (1.8-7.7); Neutrophils % 80.5 %; Nucleated Red Blood Cells % 0 %; Platelet Count 124 10^3/cmm (130-400); Red Blood Count 2.55 10^6/uL (4.1-5.3); Red Cell Distribution Width 13.9 % (12.1-15.1); White Blood Count 11.9 10^3/uL (4.0-10.0)
[2022-12-29 06:45] LABS: Alanine Aminotransferase 20 U/L (0-41); Albumin Level 2.4 g/dL (3.5-5.2); Alkaline Phosphatase 118 U/L (40-130); Anion Gap 17.5 (5-19); Aspartate Amino Transferase 28 U/L (0-40); Blood Urea Nitrogen 46 mg/dL (8-23); Calcium 6.8 mg/dL (8.5-10.5); Carbon Dioxide 20 mmol/L (22-29); Chloride 95 mmol/L (98-107); Globulin 2.3 g/dL (1.3-4.6); Glomerular Filtration Rate 6.9 mL/min (90-130); Glucose 123 mg/dL (65-115); Osmolality Calculated 281 mOsm/kg (285-295); Potassium 3.5 mmol/L (3.5-5.1); Sodium 129 mmol/L (136-145); Total Bilirubin 0.3 mg/dL (0.15-1.2); Total Protein 4.7 g/dL (6.6-8.7)
--- NOTE | 2022-12-29 06:45 | P.PN_ITS ---
Subjective Subjective: Patient is doing well. No chest pain. Had coronary angiogram that showed critical proximal to mid RCA stenosis and underwent successful revascularization with VIRGINIE x1. Vitals/I&O/Wt Last Vital Signs Temp 99.9 F H 12/28/22 19:13 Pulse 73 12/29/22 05:11 Resp 18 12/29/22 04:08 BP 94/57 12/29/22 04:08 Pulse Ox 96 12/29/22 04:08 O2 Del Method Nasal Cannula 12/28/22 19:28 O2 Flow Rate 2 12/28/22 19:28 12/28/22 12/28/22 12/29/22 14:59 22:59 06:59 Intake Total 345.8 / 345.8 1436.667 / 8940.242 2484 / 2782.467 Balance 345.8 / 345.8 1436.667 / 7103.156 8240 / 2782.467 Weight last 48 hrs Weight 180 lb Physical Exam Narrative: GENERAL: Patient is alert, awake and oriented x3. [] NECK: No jugular vein distension. [] HEENT: No cyanosis. No icterus. No pallor. [] HEART: Regular S1 and S2. No murmur, rub or gallop. [] LUNGS: Clear to auscultate bilaterally. [] CENTRAL NERVOUS SYSTEM: Grossly nonfocal. [] EXTREMITIES: Lower extremities with 1+ edema bilaterally. Pulses palpable in the lower extremities, both dorsalis pedis and posterior tibial. [] Data 12/29/22 05:44 12/29/22 05:44 A&P Assessment and plan (1) NSTEMI (non-ST elevated myocardial infarction): Patient had coronary angiogram yesterday that showed critical proximal to mid RCA stenosis. He underwent successful revascularization with VIRGINIE x1. Continue aspirin and Plavix for at least 1 year. High intensity statin therapy. (2) Atherosclerotic heart disease of [place] coronary artery with unstable angina pectoris: Aggressive medical therapy (3) End-stage renal disease on peritoneal dialysis: Nephrology on board. (4) Hyperlipidemia: Patient is on Lipitor. This may be continued. Qualifiers: Hyperlipidemia type: unspecified Qualified Code(s): E78.5 - Hyperlipidemia, unspecified (5) Hypertension: The blood pressure is under control. May continue on the current medications. Qualifiers: Hypertension type: essential hypertension Qualified Code(s): I10 - Essential (primary) hypertension (6) Parkinson disease: Patient has intentional tremor.? Essential tremor versus Parkinson's. Managem ent as per the primary Plan Echocardiogram shows mildly reduced LV systolic function. Attestations Medical Necessity Statement*: Care expected to cross 2 midnights. Coding Level of Care Code Acute Code for [facility] Fwd Diagnoses NSTEMI (non-ST elevated myocardial infarction) I21.4 Atherosclerotic heart disease of [place] coronary artery with unstable angina pectoris I25.110 End-stage renal disease on peritoneal dialysis N18.6; Z99.2 Hyperlipidemia E78.5 Hyperlipidemia type: unspecified Hypertension I10 Hypertension type: essential hypertension Parkinson disease G20
[2022-12-29] MEDS: clopidogrel 75 mg Tablet PO (09:12)
[2022-12-29] MEDS: ropinirole 0.25 mg Tablet PO (09:12)
[2022-12-29] MEDS: pantoprazole DR 40 mg Tablet PO (09:12)
[2022-12-29] MEDS: calcium acetate 667 mg Capsule PO ×3 (09:12→18:05)
[2022-12-29] MEDS: amlodipine 10 mg Tablet PO (09:12)
--- NOTE | 2022-12-29 09:39 | PM.PN ---
Subjective Subjective: no new complaints Medications: Reviewed: Yes Vitals/I&O/Wt Last Vital Signs Temp 98.6 F 12/29/22 07:07 Pulse 84 12/29/22 08:41 Resp 16 12/29/22 08:41 BP 139/69 12/29/22 07:07 Pulse Ox 94 12/29/22 08:41 O2 Del Method Nasal Cannula 12/29/22 08:41 O2 Flow Rate 3 12/29/22 08:41 12/28/22 12/29/22 12/29/22 22:59 06:59 14:59 Intake Total 1436.667 / 0988.035 1503 / 2782.467 480 / 480 Balance 1436.667 / 4765.720 9970 / 2782.467 480 / 480 Weight last 48 hrs Weight 81.647 kg Physical Exam Narrative: awake , laert no distress S1S2 RRR per report Lungs clear per report No edema Data 12/29/22 05:44 12/29/22 05:44 A&P Assessment and plan (1) End-stage renal disease on peritoneal dialysis: Plan 1. End-stage renal disease: On peritoneal dialysis, with a PD x10 hours, 6 L, 2 x 2.5% dextrose solution and 1x 4.25% dextrose solution. -Discussed with patient's at bedside, they will bring home APD machine tonight and will continue PD as his home prescription. 2. History of hypertension: Blood pressure controlled 3. Anemia: Secondary to end-stage renal disease, monitor, YOSSI ordered 4. NSTEMI: s/p left heart cath- s/p tent to RCA , cardiology following patient evaluated using audiovisual cart. Time spent 45 minutes Attestations Medical Necessity Statement*: per medicine Coding Level of Care Code Acute Code for Chg Fwd Diagnoses End-stage renal disease on peritoneal dialysis N18.6; Z99.2
--- NOTE | 2022-12-29 09:44 | PC.CHAP ---
Pastoral Care Encounter/Spiritual Assessment Type of Contact [] Declined senior game designer visit [] Patient/Family/Request visit [] Outpatient visit [] Follow-up visit [] Physician referral [] Code/Alert [x] Routine visit [] Staff referral [] Actively dying [] Patient sleeping [x] Family support [] [] Out of room [] Palliative care [] [] Receiving care in room [] Pre-surgical visit [] Trauma [] Long length of stay [] ICU visit [] Other: Relational/Emotional Strength [x] Patient feels connected with others/family/visitors/staff [] Distress [] Loneliness/isolation [] Abandonment Spirituality of Patient [x] Person of Chely [] Attends Caodaism of their [place] [x] Believes in Prayer [] Reads Bible or Confucianism materials [] There are Spiritual issues to be addressed Ag Service Manager Interventions [x] Prayer [x] Active listening [] Non-anxious presence [x] Spiritual/emotional support [] Crisis/trauma care [] Spiritual counseling [] Bereavement support [] Provided bereavement packet [] Provided Bible/devotional materials [] Provided toy/stuffed animal, coloring book to patient or family member [] Provided Communion [] Anointing/[place] [] Salvation [x] Completed spiritual assessment [] Other: Impact on Illness or Injury [] Angry [] Fearful [] Anxious [] Often cries [] Exhaustion [] Unable to work [] Unable to attend jain [] Unable to walk/stand [] Unable to read [] Unable to drive [] Unable to eat/drink [] Unable to sleep [] Unable to be with family [] Patient intubated [] Other: Summary Time spent with patient 5 min
--- NOTE | 2022-12-29 10:58 | P.DS_ITS ---
Discharge Providers Date of Admission: 12/28/22 03:26 Date of Discharge: December 29, 2022 Attending Provider at Admission: Sherri Salinas MD Attending Provider at Discharge: Rony Duran MD Primary Care Provider: Irene Jones Diagnoses at Discharge Discharge Diagnosis (1) End-stage renal disease on peritoneal dialysis: Status: Acute Reason for Visit Reason for Visit: chest pain, sob Hospital Course Hospital Course Anshu Hurt is a 72 year old male with past medical history of CKD on peritoneal dialysis, CAD, hypertension who presents to the hospital with chief complaints of chest pain.? Chest pain started in the last 24 hours, located in the center of chest.? Initially patient thought he had heartburn and has been taking increased amounts of Tums.? When that did not help he started to take nitro.? He had to take approximately 3 sublingual nitros at home today with no relief in symptoms and decided to come to the ER for further evaluation. EKG does not show any acute ST-T wave changes.? Baseline troponins are elevated in the 300 range with a positive delta at 6 hours with overall concern for NSTEMI.? Patient currently has a nitro patch on.? His chest pain is reduced in intensity from 7 to 8-3 on 10 with the Nitropatch however is not completely relieved. Patient was admitted to [facility] for chest pain, non-ST elevation NH, cardiology was consulted, underwent coronary catheterization, status post drug-eluting stent to mid RCA, monitored after procedure, discharged on aspirin, Plavix, statin Patient has chronic anemia, hemoglobin chronically between 7-9, last iron and ferritin within normal limits, he denies any bloody or black stools, hemoglobin discharge 7.8, I am discharge him on Protonix, Carafate. See primary care provider in 1 week for repeat hemoglobin, if his hemoglobin does drop low 7, he might require blood transfusion, and might require an EGD - For your stent we have discharged on aspirin and Plavix once daily -Please do not stop taking aspirin and Plavix as these are keeping your stent open -If you develop bloody or black stools go to emergency room -You have chronic anemia, your hemoglobin on discharge is 7.8, please see your primary care provider next week for recheck hemoglobin -If her hemoglobin drops below 7 you might require a unit of blood -See cardiology next week -If you have recurrent chest pain please come back to emergency room Physical Exam Const: COMMON NORMALS: no acute distress and patient oriented x3 Resp: COMMON NORMALS: normal respiratory effort, No retractions, No use of accessory muscles and clear to auscultation bilaterally AUSCULTATION: clear to auscultation bilaterally Cardio: COMMON NORMALS: regular rate, regular rhythm, S1 normal heart sound present and S2 normal heart sound present RATE: regular rate RHYTHM: regular rhythm HEART SOUNDS: S1 normal heart sound present and S2 normal heart sound present GI: COMMON NORMALS: Normal to inspection, nondistended, normoactive bowel sounds present and non-tender Extremity: COMMON NORMALS: no pedal edema Neuro: COMMON NORMALS: patient oriented x3 Psych: COMMON NORMALS: mental status grossly normal Discharge Data Studies Completed and Pending Completed Studies During Hospitalization Category Date Time Status XR chest 1V portable [id number] Stat Exams 12/27/22 22:27 Completed CV. echo complete* [id number] Routine Ultrasound 12/28/22 06:30 Completed Pending at discharge Category Date Time Status RADIO ENGINEERING TEACHER request for service Routine Exams 12/28/22 08:57 Taken Platelet Count Q2D Lab 12/30/22 04:00 Ordered Platelet Count Q2D Lab 01/01/23 04:00 Ordered Radiology Impressions Chest X-Ray 12/27/22 22:27 IMPRESSION: 1. Cardiomegaly and mild pulmonary vascular congestion. 2. Right lower lobe atelectasis versus minimal infiltrate. Laboratory Results WBC 11.9 10^3/uL (4.0-10.0) H 12/29/22 05:44 RBC 2.55 10^6/uL (4.1-5.3) L 12/29/22 05:44 Hgb 7.8 g/dL (11.7-16.6) L 12/29/22 05:44 Hct 23.6 % (42.0-52.0) L 12/29/22 05:44 MCV 92.5 fl (80-94) 12/29/22 05:44 MCH 30.6 pg (28.0-34.0) 12/29/22 05:44 MCHC 33.1 g/dL (30.0-36.0) 12/29/22 05:44 RDW 13.9 % (12.1-15.1) 12/29/22 05:44 Plt Count 124 10^3/cmm (130-400) L 12/29/22 05:44 MPV 11.1 fL (7.4-10.4) H 12/29/22 05:44 Neut % (Auto) 80.5 % 12/29/22 05:44 Lymph % (Auto) 9.4 % 12/29/22 05:44 [place] % (Auto) 7.5 % 12/29/22 05:44 Eos % (Auto) 1.9 % 12/29/22 05:44 Baso % (Auto) 0.3 % 12/29/22 05:44 Neut # (Auto) 9.58 10^3/uL (1.8-7.7) H 12/29/22 05:44 Lymph # (Auto) 1.1 10^3/uL (0.8-4.8) 12/29/22 05:44 [place] # (Auto) 0.9 10^3/uL (0.2-0.9) 12/29/22 05:44 Eos # (Auto) 0.2 10^3/uL (0.0-0.8) 12/29/22 05:44 Baso # (Auto) 0.0 10^3/uL (0.0-0.1) 12/29/22 05:44 Nucleated RBC % (auto) 0 % 12/29/22 05:44 Nucleated RBCs # 0.0 /100WBC 12/29/22 05:44 APTT 43.7 SECONDS (23.9-36.7) H D 12/28/22 17:42 Sodium 129 mmol/L (136-145) L 12/29/22 05:44 Potassium 3.5 mmol/L (3.5-5.1) 12/29/22 05:44 Chloride 95 mmol/L (98-107) L 12/29/22 05:44 Carbon Dioxide 20 mmol/L (22-29) L 12/29/22 05:44 Anion Gap 17.5 (5-19) 12/29/22 05:44 BUN 46 mg/dL (8-23) H 12/29/22 05:44 Creatinine 7.8 mg/dL (0.7-1.2) H* 12/29/22 05:44 GFR Calculation 6.9 mL/min (90-130) L 12/29/22 05:44 Glucose 123 mg/dL (65-115) H 12/29/22 05:44 POC Glucose 88 mg/dL (70-110) 12/28/22 07:51 Calculated Osmolality 281 mOsm/kg (285-295) L 12/29/22 05:44 Calcium 6.8 mg/dL (8.5-10.5) L 12/29/22 05:44 Phosphorus 7.1 mg/dL (2.5-4.5) H 12/27/22 22:20 Magnesium 1.8 mg/dL (1.7-2.3) 12/27/22 22:20 Total Bilirubin 0.3 mg/dL (0.15-1.2) 12/29/22 05:44 AST 28 U/L (0-40) 12/29/22 05:44 ALT 20 U/L (0-41) 12/29/22 05:44 Alkaline Phosphatase 118 U/L (40-130) 12/29/22 05:44 Troponin T Baseline 342 ng/L (0-15) H* 12/27/22 22:20 Troponin T 120 Minute 341.5 ng/L (0-15) H 12/28/22 00:40 Delta Troponin T -0.5 ABS# (0-10) L 12/28/22 00:40 Troponin T Hi Sens 6Hr 362.3 ng/L (0-15) H 12/28/22 04:38 Troponin T Hi Sens 6Hr Delta 20.3 ng/L (0-12) H* 12/28/22 04:38 NT-Pro-B Natriuret Pep 51709 pg/mL (0-125) H 12/27/22 22:20 Total Protein 4.7 g/dL (6.6-8.7) L 12/29/22 05:44 Albumin 2.4 g/dL (3.5-5.2) L 12/29/22 05:44 Globulin 2.3 g/dL (1.3-4.6) 12/29/22 05:44 Vitals Last Vital Signs Temp 98.6 F 12/29/22 07:07 Pulse 84 12/29/22 08:41 Resp 16 12/29/22 08:41 BP 139/69 05/23/23 07:07 Pulse Ox 94 12/29/22 08:41 O2 Del Method Nasal Cannula 12/29/22 08:41 O2 Flow Rate 3 12/29/22 08:41 Discharge Plan Discharge Patient Disposition: Home Condition: Stable Prescriptions: New clopidogrel 75 mg Tablet 75 mg PO DAILY 30 Days Qty: 30 0RF pantoprazole 40 mg Tablet,Delayed Release (Dr/Ec) 40 mg PO Q12H 30 Days Qty: 60 0RF nitroglycerin 0.4 mg Tablet, Sublingual 0.4 mg sublingual Q5M PRN (Reason: Chest Pain) 30 Days Qty: 30 0RF Carafate 1 gram tablet 1 g PO BID 30 Days Qty: 60 0RF Continued nitroglycerin [Nitrostat] 0.4 mg tablet, sublingual 0.4 mg SUBLINGUAL Q5M PRN (Reason: Chest Pain) Qty: 25 2RF Rx Instructions: do not exceed 3 doses per episode Bevespi Aerosphere 9-4.8 mcg HFA aerosol inhaler 2 puff inhalation BID Qty: 10.7 3RF magnesium oxide [MagOx] 400 mg (241.3 mg magnesium) Tablet 400 mg PO QAM Creon 12,000-38,000 -60,000 unit Capsule,Delayed Release(Dr/Ec) See Rx Instructions .ROUTE .COMPLEX Rx Instructions: 5 cap po with meals and 2-3 caps with snacks. levothyroxine [Euthyrox] 150 mcg Tablet 150 mcg PO QAM Rx Instructions: Take on an empty stomach sertraline 50 mg Tablet 75 mg PO QPM pregabalin [Lyrica] 150 mg Capsule 150 mg PO QPM calcium acetate(phosphat bind) 667 mg capsule See Rx Instructions .ROUTE .COMPLEX Rx Instructions: Take 4 caps PO with meals and 2 caps with snacks. (Do not exceed 16 caps per day). cholecalciferol (vitamin D3) 1,250 mcg (50,000 unit) capsule 50,000 unit PO Q7D Rx Instructions: on wed amlodipine 10 mg tablet 10 mg PO QAM albuterol sulfate 90 mcg/actuation HFA aerosol inhaler 1 - 2 puff INHALATION Q4H PRN (Reason: Shortness Of Breath) ropinirole 0.5 mg tablet 0.5 mg PO BEDTIME zolpidem 10 mg tablet 10 mg PO BEDTIME RenaPlex-D 800 mcg-12.5 mg -2,000 unit tablet 1 tab PO QAM albuterol sulfate 2.5 mg /3 mL (0.083 %) solution for nebulization 2.5 mg inhalation Q6H PRN (Reason: Shortness Of Breath) ondansetron 8 mg tablet,disintegrating 8 mg PO Q6H PRN (Reason: Nausea And Vomiting) gentamicin 0.1 % cream See Rx Instructions .ROUTE .COMPLEX Rx Instructions: APPLY TO EXIT SITE ONCE A DAY naloxone 4 mg/actuation spray,non-aerosol See Rx Instructions .ROUTE .COMPLEX Rx Instructions: ADMINISTER A SINGLE SPRAY IN ONE NOSTRIL UPON SIGNS OF OPIOID OVERDOSE. CALL 911. REPEAT AFTER 3 MINUTES IF NO RESPONSE. atorvastatin 40 mg tablet 40 mg PO QPM 30 Days Qty: 30 3RF aspirin 81 mg Tablet,Delayed Release (Dr/Ec) 81 mg PO BEDTIME 30 Days Qty: 30 0RF Novolog FlexPen U-100 Insulin 100 unit/mL (3 mL) insulin pen See Rx Instructions .ROUTE .COMPLEX Qty: 15 0RF Rx Instructions: sliding scale tid Changed Basaglar KwikPen U-100 Insulin 100 unit/mL (3 mL) Insulin Pen See Rx Instructions .ROUTE .COMPLEX Qty: 15 0RF Rx Instructions: 10 units according to bag used for dialysis Discontinued famotidine 20 mg tablet 20 mg PO DAILY Discharge Orders: Discharge Order (Routine); Ordered 12/29/22 Ordered By: Rony Duran Referrals: Lucius Stapleton MD [Physician] - (Your follow up appointment with Dr. Stapleton will be scheduled while you are at your appointment with Chely Sarmiento. ) Chely Sarmiento FNP [Nurse Practitioner] - 01/08/23 9:15 am Kiran Reardon MD [Primary Care Provider] - 01/05/23 2:40 pm (Please follow- up with Kiran Reardon on January 05 at 2:40p.m. If you have any questions or need to reschedule. Please call ) Discharge Diet: Cardiac Discharge Activity: Resume usual activity Patient Instructions: Nitroglycerin (By mouth), Sucralfate (By mouth) (Carafate), Clopidogrel (By mouth) (Plavix), Pantoprazole (By mouth) (Protonix), Insulin Glargine (By injection) (Lantus, Lantus SoloStar, Toujeo, Semglee), Coronary Angioplasty (DC), Hypertension (DC), Hyperlipidemia (DC), Chest Pain Stoplight, Opioid Safety, Post Angiogram Home Care Instructions Activity Restrictions/Additional Instructions: - For your stent we have discharged on aspirin and Plavix once daily -Please do not stop taking aspirin and Plavix as these are keeping your stent op en -If you develop bloody or black stools go to emergency room -You have chronic anemia, your hemoglobin on discharge is 7.8, please see your primary care provider next week for recheck hemoglobin -If her hemoglobin drops below 7 you might require a unit of blood -See cardiology next week -If you have recurrent chest pain please come back to emergency room Discharge Attestations Time Spent in Discharge Care*: greater than 30 min Quality Metrics Clinical Quality Measures [ No reported AMI, CVA or VTE this stay] Coding Level of Care Code Acute Code for Chg Fwd Diagnoses End-stage renal disease on peritoneal dialysis N18.6; Z99.2
[2022-12-29 11:33] LABS: Iron 62 ug/dL (59-158)
[2022-12-29 11:45] LABS: Ferritin 1384 ng/mL (30-400)
[2022-12-29] MEDS: nitroglycerin 0.4 mg sublingual Tablet SUBLINGUAL (12:27)
--- NOTE | 2022-12-29 12:51 | ECG_ITS ---
[facility] Test Date: 2022-12-29 Pat Name: Anshu Hurt Department: Room: 102 Gender: Male Outcomes Specialist: : 1950 Requested By: Rony Duran Order Number: [id number] Murtaza MD: Lucius Stapleton M.D. Measurements Intervals [place] Rate: 83 P: 21 IN: 196 QRS: -33 QRSD: 103 T: 61 QT: 417 QTc: 492 Interpretive Statements SINUS RHYTHM WITH OCCASIONAL SUPRAVENTRICULAR PREMATURE COMPLEXES LEFT AXIS DEVIATION [QRS AXIS < -30] MODERATE VOLTAGE CRITERIA FOR LVH, CONSIDER NORMAL VARIANT [MEETS CRITERIA IN ONE OF: R(aVL), S(V1), R(V5), R(V5/V6)+S(V1)] Compared to ECG 12/28/2022 05:43:06 Left-axis deviation now present First degree AV block no longer present Right-axis deviation no longer present ST (T wave) deviation no longer present Electronically Signed On 12-30-2022 22:32:38 CDT by Lucius Stapleton M.D. [id number]
[2022-12-29] MEDS: morphine 4 mg/mL SDV 1 mL 2 MG IM (14:24)
[2022-12-29] MEDS: isosorbide mononitrate ER 30 mg Tablet PO (14:24)
[2022-12-29 14:28] LABS: Basophils % 0.2 %; Eosinophils # 0.2 10^3/uL (0.0-0.8); Eosinophils % 1.4 %; Hematocrit 21.5 % (42.0-52.0); Hemoglobin 7.3 g/dL (11.7-16.6); Lymphocytes # 1.4 10^3/uL (0.8-4.8); Lymphocytes % 11.2 %; Mean Corpuscular Hemoglobin 31.3 pg (28.0-34.0); Mean Corpuscular Volume 92.3 fl (80-94); Mean Platelet Volume 10.8 fL (7.4-10.4); Monocytes # 0.9 10^3/uL (0.2-0.9); Monocytes % 7.2 %; Neutrophils # 9.73 10^3/uL (1.8-7.7); Neutrophils % 79.3 %; Nucleated Red Blood Cells % 0 %; Platelet Count 140 10^3/cmm (130-400); Red Blood Count 2.33 10^6/uL (4.1-5.3); Red Cell Distribution Width 14.2 % (12.1-15.1); White Blood Count 12.3 10^3/uL (4.0-10.0)
[2022-12-29 14:42] LABS: Anion Gap 19.8 (5-19); Blood Urea Nitrogen 49 mg/dL (8-23); Calcium 6.9 mg/dL (8.5-10.5); Carbon Dioxide 19 mmol/L (22-29); Chloride 92 mmol/L (98-107); Glomerular Filtration Rate 6.8 mL/min (90-130); Glucose 142 mg/dL (65-115); Osmolality Calculated 279 mOsm/kg (285-295); Potassium 3.8 mmol/L (3.5-5.1); Sodium 127 mmol/L (136-145)
--- NOTE | 2022-12-29 15:23 | P.PN_ITS ---
Subjective Subjective: Patient was examined multiple times throughout the morning, and in the afternoon -Early in the morning, patient was feeling well, no chest pain, no palpitations, no shortness of breath, he was ready to leave the hospital, denies any bloody or black stools, I advised him we need to monitor his hemoglobin, as it 7.8, and he is on aspirin and Plavix he is agreeable -Plans on discharging him at noon, patient was good to be discharged his IV was removed, but he started complaining of severe substernal chest pain 7 out of 10, -Review EKG no acute ST-T wave changes, repeat a chest x-ray due to poor quality no acute ST-T wave changes -Repeated CBC, CMP -Advised nursing staff to give him nitro and monitor him -Was reexamined, trouble getting his IV, continues to complain of chest pain despite getting nitroglycerin -Advised nursing staff to give him morphine, waiting on blood work, -Reexamined, continues to have chest pain, Dr. King is placed him on nitroglycerin, telemetry normal sinus rhythm, -Repeated his blood work hemoglobin is 7.3, given his stent placement we will maintain his hemoglobin greater than 8 we will give him 1 unit PRBC discussed with him keeping him 24 hours, he is agreeable, monitor for chest pain overnight -Serum sodium 127, will need to monitor Vitals/I&O/Wt Last Vital Signs Temp 98.7 F 12/29/22 11:15 Pulse 80 12/29/22 11:15 Resp 16 12/29/22 14:24 BP 105/67 12/29/22 11:15 Pulse Ox 96 12/29/22 14:24 O2 Del Method Room Air 12/29/22 11:15 O2 Flow Rate 3 12/29/22 08:41 12/29/22 12/29/22 12/29/22 06:59 14:59 22:59 Intake Total 1000 / 2782.467 960 / 960 Balance 1000 / 2782.467 960 / 960 Weight last 48 hrs Weight 81.647 kg Physical Exam Const: COMMON NORMALS: no acute distress and patient oriented x3 Resp: COMMON NORMALS: normal respiratory effort, No retractions, No use of accessory muscles and clear to auscultation bilaterally AUSCULTATION: clear to auscultation bilaterally Cardio: COMMON NORMALS: regular rate, regular rhythm, S1 normal heart sound present and S2 normal heart sound present RATE: regular rate RHYTHM: regu lar rhythm HEART SOUNDS: S1 normal heart sound present and S2 normal heart sound present GI: COMMON NORMALS: Normal to inspection, nondistended, normoactive bowel sounds present and non-tender Extremity: COMMON NORMALS: no pedal edema Neuro: COMMON NORMALS: patient oriented x3 Psych: COMMON NORMALS: mental status grossly normal Data 12/29/22 14:10 12/29/22 14:10 A&P Assessment and plan (1) NSTEMI (non-ST elevated myocardial infarction): Patient with multiple comorbidities as listed above currently presenting for chest pain. -Status post RCA stenting -Recurrent 7 out of 10 chest pain EKG without acute ST-T wave changes Placed on nitroglycerin drip Transfuse 1 unit PRBC Cardiology on consult Aspirin 81, statins Plavix Nephrology consult to continue peritoneal dialysis while here in the hospital. -We will continue peritoneal dialysis today -Ordered iron studies, Hemoccult stool Continue to monitor as inpatient Spoke to nursing staff, spoke to , spoke to patient, spoke to cardiology, (2) Acute anemia: (3) Hyponatremia: (4) Hyperlipidemia: Qualifiers: Hyperlipidemia type: unspecified Qualified Code(s): E78.5 - Hyperlipidemia, unspecified (5) Hypertension: Qualifiers: Hypertension type: essential hypertension Qualified Code(s): I10 - Essential (primary) hypertension (6) Atherosclerotic heart disease of [place] coronary artery with unstable angina pectoris: Attestations Medical Necessity Statement*: Patient requires hospitalization, inpatient, greater than 2 midnights, for NSTEMI, with recurrent chest pain, acute anemia, hyponatremia, and High Time for a total of 70 minutes, includes reviewing past or interval history, examining/interviewing patient, placing orders, counseling patient/family/other support, updating patient/family/other support, discussing plan of care with staff, communicating with other healthcare providers, documenting encounter and coordinating care Diagnoses NSTEMI (non-ST elevated myocardial infarction) I21.4 Acute anemia D64.9 Hyponatremia E87.1 Hyperlipidemia E78.5 Hyperlipidemia type: unspecified Hypertension I10 Hypertension type: essential hypertension Atherosclerotic heart disease of [place] coronary artery with unstable angina pectoris I25.110
--- NOTE | 2022-12-29 16:00 | ECG_ITS ---
[facility] Test Date: 2022-12-29 Pat Name: Anshu Hurt Department: Room: 102 Gender: Male Residential Real Estate Assistant: : 1950 Requested By: Rony Duran Order Number: [id number] Murtaza MD: Lucius Stapleton M.D. Measurements Intervals [place] Rate: 76 P: 33 HI: 222 QRS: -35 QRSD: 99 T: 64 QT: 431 QTc: 486 Interpretive Statements SINUS RHYTHM WITH FIRST DEGREE AV BLOCK LEFT AXIS DEVIATION [QRS AXIS < -30] PATTERN CONSISTENT WITH PULMONARY DISEASE MODERATE VOLTAGE CRITERIA FOR LVH, CONSIDER NORMAL VARIANT [MEETS CRITERIA IN ONE OF: R(aVL), S(V1), R(V5), R(V5/V6)+S(V1)] NONSPECIFIC T-WAVE ABNORMALITY PROLONGED QT INTERVAL Compared to ECG 12/29/2022 12:51:52 First degree AV block now present T-wave abnormality now present Prolonged QT interval now present Electronically Signed On 12-30-2022 22:33:33 CDT by Lucius Stapleton M.D. [id number]
--- NOTE | 2022-12-29 16:39 | PC.NURSE ---
Upon discharging patient, patient began to develop chest pain that radiates down the right side of his arm, mild nausea, and some SOB. Physician notified and received orders to give morphine IM 2mg, nitro SL, and if chest pain persists initiate nitro gtt. Also obtained EKG per CP protocol.
--- NOTE | 2022-12-29 17:28 | PC.NURSE ---
Physician orders morphine IVP 1mg PRN q4h pain
[2022-12-29] MEDS: sertraline 50 mg Tablet 75 MG PO (18:05)
[2022-12-29] MEDS: atorvastatin 40 mg Tablet PO (18:05)
[2022-12-29] MEDS: sodium chloride 0.9% 100 mL Bag 50 ML IV (18:10)
[2022-12-29] MEDS: sucralfate 1 gm Tablet PO (18:21)
--- NOTE | 2022-12-29 18:30 | ECG_ITS ---
[facility] Test Date: 2022-12-29 Pat Name: Anshu Hurt Department: Room: 102 Gender: Male Auditing Control Clerk: : 1950 Requested By: Rony Duran Order Number: [id number] Murtaza MD: Lucius Stapleton M.D. Measurements Intervals [place] Rate: 79 P: 43 NE: 226 QRS: -37 QRSD: 90 T: 79 QT: 410 QTc: 473 Interpretive Statements SINUS RHYTHM WITH FIRST DEGREE AV BLOCK LEFT AXIS DEVIATION [QRS AXIS < -30] NONSPECIFIC T-WAVE ABNORMALITY Compared to ECG 12/29/2022 16:00:53 Prolonged QT interval no longer present T-wave abnormality still present Electronically Signed On 12-30-2022 22:34:10 CDT by Lucius Stapleton M.D. [id number]
[2022-12-29 20:58] LABS: Glucose Point of Care 171 mg/dL (70-110)
[2022-12-29] MEDS: HYDROcodone-acetaminophen 5-325 mg Tablet 1 TAB PO (21:05)
[2022-12-29] MEDS: pantoprazole 40 mg SDV IVP (21:05)
[2022-12-29] MEDS: aspirin 81 mg EC Tablet PO (21:06)
[2022-12-29] MEDS: zolpidem 5 mg Tablet PO (21:06)
[2022-12-29] MEDS: pregabalin 150 mg Capsule PO (21:06)
--- NOTE | 2022-12-29 23:10 | ECG_ITS ---
[facility] Test Date: 2022-12-29 Pat Name: Anshu Hurt Department: Room: 102 Gender: Male Teaching Assistant: : 1950 Requested By: Rony Duran Order Number: [id number] Reading MD: Lucius Stapleton M.D. Measurements Intervals [place] Rate: 78 P: 33 NV: 236 QRS: 34 QRSD: 93 T: 32 QT: 415 QTc: 473 Interpretive Statements SINUS RHYTHM WITH FIRST DEGREE AV BLOCK WITH OCCASIONAL SUPRAVENTRICULAR PREMATURE COMPLEXES NONSPECIFIC T-WAVE ABNORMALITY Compared to ECG 12/29/2022 18:17:52 Left-axis deviation no longer present T-wave abnormality still present Electronically Signed On 12-30-2022 22:35:56 CDT by Lucius Stapleton M.D. [id number]
[2022-12-30] VITALS (23 sets, daily range): BP systolic 76–133; BP diastolic 50–76; PULSE 59–101; RESP 15–31; TEMP 36.7; O2SAT 93–100
[2022-12-30 04:08] LABS: Basophils % 0.2 %; Eosinophils # 0.3 10^3/uL (0.0-0.8); Eosinophils % 3.1 %; Hematocrit 22.5 % (42.0-52.0); Hemoglobin 7.6 g/dL (11.7-16.6); Lymphocytes # 1.2 10^3/uL (0.8-4.8); Lymphocytes % 13.6 %; Mean Corpuscular HGB Conc 33.8 g/dL (30.0-36.0); Mean Corpuscular Hemoglobin 30.9 pg (28.0-34.0); Mean Corpuscular Volume 91.5 fl (80-94); Monocytes # 1.2 10^3/uL (0.2-0.9); Monocytes % 12.7 %; Neutrophils % 69.9 %; Nucleated Red Blood Cells % 0 %; Platelet Count 111 10^3/cmm (130-400); Red Blood Count 2.46 10^6/uL (4.1-5.3); Red Cell Distribution Width 15.1 % (12.1-15.1); White Blood Count 9.2 10^3/uL (4.0-10.0)
[2022-12-30 04:36] LABS: Alanine Aminotransferase 17 U/L (0-41); Albumin Level 2.3 g/dL (3.5-5.2); Alkaline Phosphatase 99 U/L (40-130); Anion Gap 16.5 (5-19); Aspartate Amino Transferase 22 U/L (0-40); Blood Urea Nitrogen 47 mg/dL (8-23); C Reactive Protein 109.9 mg/L (0.0-4.9); Calcium 6.9 mg/dL (8.5-10.5); Carbon Dioxide 21 mmol/L (22-29); Chloride 94 mmol/L (98-107); Globulin 2.2 g/dL (1.3-4.6); Glomerular Filtration Rate 6.6 mL/min (90-130); Glucose 177 mg/dL (65-115); Magnesium 1.7 mg/dL (1.7-2.3); Osmolality Calculated 283 mOsm/kg (285-295); Phosphorus 6.2 mg/dL (2.5-4.5); Potassium 3.5 mmol/L (3.5-5.1); Sodium 128 mmol/L (136-145); Total Bilirubin 0.3 mg/dL (0.15-1.2); Total Protein 4.5 g/dL (6.6-8.7)
[2022-12-30] MEDS: levothyroxine 150 mcg Tablet PO (05:21)
[2022-12-30] MEDS: sucralfate 1 gm Tablet PO ×2 (05:21→18:03)
[2022-12-30] MEDS: pantoprazole 40 mg SDV IVP ×2 (05:22→18:03)
[2022-12-30 05:27] LABS: NT Pro B Type Natriuretic Pept 35000 pg/mL (0-125)
[2022-12-30 06:25] LABS: Glucose Point of Care 149 mg/dL (70-110)
--- NOTE | 2022-12-30 07:42 | PM.PN ---
Subjective Subjective: DC held due to chest pain and has low Hb Medications: Reviewed: Yes Vitals/I&O/Wt Last Vital Signs Temp 97.9 F 12/29/22 20:26 Pulse 70 12/30/22 07:33 Resp 18 12/30/22 07:33 BP 130/64 12/30/22 07:33 Pulse Ox 99 12/30/22 07:33 O2 Del Method Room Air 12/30/22 04:10 O2 Flow Rate 3 12/29/22 23:10 12/29/22 12/30/22 12/30/22 22:59 06:59 14:59 Intake Total 590 / 1550 240 / 1790 Balance 590 / 1550 240 / 1790 Physical Exam Narrative: awake , laert no distress S1S2 RRR per report Lungs clear per report No edema Data 12/30/22 03:31 12/30/22 03:31 A&P Assessment and plan (1) End-stage renal disease on peritoneal dialysis: Plan 1. End-stage renal disease: On peritoneal dialysis, with a PD x10 hours, 6 L, 2 x 2.5% dextrose solution and 1x 4.25% dextrose solution. -Discussed with patient's at bedside, using APD and will continue PD as his home prescription. Recommended to use 2.5 % dextrose solution to get extra UF today 2. History of hypertension: Blood pressure controlled 3. Anemia: Secondary to end-stage renal disease, monitor, YOSSI ordered, s/p transfusion 4. NSTEMI: s/p left heart cath- s/p tent to RCA , cardiology following, c/o chest pain patient evaluated using audiovisual cart. Time spent 45 minutes Attestations Medical Necessity Statement*: per medicine Coding Level of Care Code Acute Code for Chg Fwd Diagnoses End-stage renal disease on peritoneal dialysis N18.6; Z99.2
--- NOTE | 2022-12-30 08:04 | PM.PN ---
Subjective Subjective: Patient was waiting to be discharged home yesterday when had severe substernal chest pain radiating to both arms. Improved after Nitroglycerin administration.We brought him back to the cardiac [facility]. Coronary angiogram demonstrated ostial RCA old stent still had about 60 to 70% stenosis. Otherwise patent vessel.iFR was performed that showed an ischemic value of 0.87. Ostial RCA underwent balloon angioplasty. However balloon doesnt fully expand.With guide engagement, there was dampening of pressure. We then proceeded with iFR of left main artery and LAD that had moderate to severe stenosis and intial plan was to perform outpatient stress test. iFR is significantly reduced with a value of 0.71. No active chest pain. troponin is 925. Vitals/I&O/Wt Last Vital Signs Temp 97.9 F 12/29/22 20:26 Pulse 70 12/30/22 07:33 Resp 18 12/30/22 07:33 BP 130/64 12/30/22 07:33 Pulse Ox 99 12/30/22 07:33 O2 Del Method Room Air 12/30/22 04:10 O2 Flow Rate 3 12/29/22 23:10 12/29/22 12/30/22 12/30/22 22:59 06:59 14:59 Intake Total 590 / 1550 240 / 1790 Balance 590 / 1550 240 / 1790 Physical Exam Narrative: GENERAL: Patient is alert, awake and oriented x3. [] NECK: No jugular vein distension. [] HEENT: No cyanosis. No icterus. No pallor. [] HEART: Regular S1 and S2. No murmur, rub or gallop. [] LUNGS: Clear to auscultate bilaterally. [] CENTRAL NERVOUS SYSTEM: Grossly nonfocal. [] EXTREMITIES: Lower extremities with 1+ edema bilaterally. Pulses palpable in the lower extremities, both dorsalis pedis and posterior tibial. [] Data 12/30/22 03:31 12/30/22 03:31 A&P Assessment and plan (1) NSTEMI (non-ST elevated myocardial infarction): Patient had balloon angioplasty of ostial RCA stent however Blood pressure is still dampening which correlates with not fully expanded prior stent. We then performed iFR of the left main/LAD that was significantly reduced at 0.71. Patient will benefit from CABG evaluation and heart team discussion. We will initiate transfer process for that. Continue aspirin and plavix as had prox to mid RCA stent 2 days ago. (2) Atherosclerotic heart disease of [place] coronary artery with unstable angina pectoris: Aggressive medical therapy (3) End-stage renal disease on peritoneal dialysis: Nephrology on board. (4) Hyperlipidemia: Patient is on Lipitor. This may be continued. Qualifiers: Hyperlipidemia type: unspecified Qualified Code(s): E78.5 - Hyperlipidemia, unspecified (5) Hypertension: The blood pressure is under control. May continue on the current medications. Qualifiers: Hypertension type: essential hypertension Qualified Code(s): I10 - Essential (primary) hypertension (6) Parkinson disease: Patient has intentional tremor.? Essential tremor versus Parkinson's. Management as per the primary Plan Echocardiogram shows mildly reduced LV systolic function. Attestations Medical Necessity Statement*: Care expected to cross 2 midnights. Coding Level of Care Code Acute Code for [facility] Diagnoses NSTEMI (non-ST elevated myocardial infarction) I21.4 Atherosclerotic heart disease of [place] coronary artery with unstable angina pectoris I25.110 End-stage renal disease on peritoneal dialysis N18.6; Z99.2 Hyperlipidemia E78.5 Hyperlipidemia type: unspecified Hypertension I10 Hypertension type: essential hypertension Parkinson disease G20
[2022-12-30] MEDS: epoetin alfa 1000 Unit/0.05 mL (ESRD) 20000 UNIT SUBCUT (08:06)
[2022-12-30] MEDS: isosorbide mononitrate ER 30 mg Tablet PO (08:07)
[2022-12-30] MEDS: clopidogrel 75 mg Tablet PO (08:07)
[2022-12-30] MEDS: calcium acetate 667 mg Capsule PO ×3 (08:07→18:03)
[2022-12-30] MEDS: ropinirole 0.25 mg Tablet PO (08:15)
[2022-12-30 08:34] LABS: Troponin T (5th) Once 925 ng/L (0-15)
--- NOTE | 2022-12-30 08:39 | USCV_ITS ---
Anshu Hurt Age: 72 Gender: M : 1950 Exam Date: 12/30/2022 08:56 Ordering Phys: Lino Javier M.D ([email or web address]) Technologist: Yasir Juarez Exam Location: [facility] [place] Indication: chest pain ? wall motion BP: 107 / 69 HR: 69 Rhythm: Sinus Technical Quality: Adequate MEASUREMENTS (Male / Female) Normal Values 2D ECHO LV Diastolic Diameter PLAX 4.6 cm 4.2 - 5.9 / 3.9 - 5.3 cm LV Systolic Diameter PLAX 3.1 cm IVS Diastolic Thickness 1.0 cm 0.6 - 1.0 / 0.6 - 0.9 cm IVS Systolic Thickness 1.7 cm LVPW Diastolic Thickness 1.2 cm 0.6 - 1.0 / 0.6 - 0.9 cm LVPW Systolic Thickness 1.7 cm LV Ejection Fraction 2D Teich 60.2 % LV Ejection Fraction MOD 2C 51.3 % LV Ejection Fraction 2C AL 51.5 % LA Diameter 4.3 cm M-MODE LV Diastolic Diameter MM 4.3 cm 4.2 - 5.9 / 3.9 - 5.3 cm LV Systolic Diameter MM 2.4 cm LV Ejection Fraction MM Teich 76.5 % IVS Diastolic Thickness MM 1.1 cm 0.6 - 1.0 / 0.6 - 0.9 cm IVS Systolic Thickness MM 1.7 cm LVPW Diastolic Thickness MM 1.2 cm 0.6 - 1.0 / 0.6 - 0.9 cm LVPW Systolic Thickness MM 2.1 cm RV Diastolic Diameter MM 1.6 cm Aortic Annulus Diameter 3.4 cm LA Ao Ratio MM 1.3 MV E Point Septal Separation 1.7 cm FINDINGS Left Ventricle Right Ventricle Right Atrium Left Atrium Mitral Valve Aortic Valve Tricuspid Valve Pulmonic Valve Pericardium Aorta IVC CONCLUSIONS Limited quality echocardiogram performed to assess LV systolic function. LV systolic function is mildly reduced with EF of 40 to 45%. Mild global hypokinesis. Compared to prior echocardiogram from 12/28/2022, LV systolic function is mildly reduced. Lino Javier MD (Electronically Signed) Final Date: 08 January 2023 16:49 S
--- NOTE | 2022-12-30 11:03 | XACV_ITS ---
Exam Room: [facility] Ht: 180 cm Wt: 82 kg BSA: 2.03 m2 Gender: Male : 1950 Any Known Allergies: Other Exam Priority: Routine Procedure(s): Procedure Description: Diagnostic procedure Procedure Description: PCI procedure Procedure Description: PTCA Procedure Description: Miscellaneous Procedure Description: ACT Procedure Description: Coronary Angiography Procedure Description: Pressure Wire Diagnostic Cath Status: Urgent Diagnostic Findings * INDICATION: 72-year-old man with significant past medical history of CAD with multiple stents in the past, end-stage renal disease on peritoneal dialysis who had presented 2 days ago with worsening chest pain symptoms consistent with unstable angina. Coronary angiogram showed moderate to left main stenosis, moderate to severe proximal LAD to mid LAD long, calcified stenosis, ostial RCA in-stent restenosis and critical proximal to mid RCA stenosis. He underwent successful revascularization with VIRGINIE x1 to RCA. Plan was to perform outpatient stress test to evaluate left main/LAD stenosis. However prior to patient hospital discharge, he developed severe chest pain radiating to arms. He needed nitro. His troponin had increased from baseline of 300 to about 900.. * Left Main: Moderate 30-40 % stenosis, JOANNA: 3 flow. * Proximal Left Anterior Descending to Mid Left Anterior Descending: obstructive 60-70% stenosis, JOANNA: 3 flow. * RCA has prior ostial stent. It has 60 to 70% in-stent restenosis. . * Circumflex has patent prior stent. * Coronary angiography shows right dominance. PCI Status: Urgent PCI Indication: Other Interventional Findings * Procedure Detail: After diagnostic coronary angiogram was performed, we decided to perform IFR of RCA. IV heparin was administered to maintain anticoagulation. JR4 guide catheter was used to engage RCA. After normalization IFR wire was advanced to distal vessel. iFR value of 0.87 was obtained and pullback showed significant gradient at the ostium. We performed balloon angioplasty of ostial RCA in-stent re-stenosis it was causing significant dampening of pressure with guide engagement and IFR value of 0.87. Balloon did not fully expand and there was no residual dampening of pressure even after balloon angioplasty. We then turned our attention to the left main and proximal to mid LAD stenosis. After normalization IFR wire was advanced into distal LAD. An IFR value of 0.71 was obtained that was very ischemic. Pullback showed diffuse disease starting all the way from mid LAD to left main artery.. * Proximal Right Coronary Artery: 70% stenosis treated with a MDT NC EUPHORA RX [id number] BALLOON. 0% residual stenosis, JOANNA: 3 flow. Conclusions 1. Severe multivessel CAD including ostial RCA, 2. left main and proximal to mid LAD (confirmed with ifr value of 0.71 for left main/LAD). Patent prior stent in left circumflex artery. Balloon angioplasty of ostial RCA performed however the balloon did not completely expand and patient still had significant dampening of pressures with catheter engagement. 3. . 4. Proximal Right Coronary Artery was treated with a Balloon. Recommendations * Given patient's aggressive, multivessel calcified coronary artery disease, we will transfer patient to tertiary care center for heart team discussion as CABG will give the best long-term outcomes. Patient had multiple prior stents with in-stent restenosis.. * Continue current medications. Once sheath is pulled out, he will need resumption of anticoagulation. Interventional RX Recommendation: CABG Anticoagulation: Heparin Pressures Phase:Rest AO : 99 / 53 ( 67 ) @ 12:22:00 PM 108 / 55 ( 75 ) @ 12:30:00 PM 91 / 43 ( 63 ) @ 12:45:00 PM Clinical Evaluation EBL: 5mL-10mL Procedural Details Procedure Consent Obtained. Admit Source: In Patient. Pre-Procedure Time Out. Identified patient by full name and date of as verbalized by the patient/guarantor. Does the consent match the physician's order: Yes. Accurate & Complete Informed Consent: Yes. Inpatient/Outpatient History & Physical on Chart: Yes. If H&P is completed, is and addenduem needed: No; If yes, is the addendum complete: N/A. Visualize and Verify Site with Patient/Guarantor: N/A. Relevant Radiology Images available: Yes. The risks, benefits, and alternatives of sedation and/or procedure were discussed by physician. The patient agrees to continue. Procedure started. [facility] Clinical Fraility Score: 4: Vulnerable. Chest Pain Symptom Assessment: Typical Angina Symptoms. Correct patient, site and procedure confirmed by cath team. Current diagnosis: NSTEMI. PERRLA. Strong, equal hand steward/stewardess dining room bilaterally. Lungs clear x 5 lobes. IV Site on Arrival: 20 gauge in the left anticubital. IV Fluids: 0.9% NaCl at 75ml/hr. 0 mL infused prior to labor employment associate. Pre Procedural Pulses: bilateral posterior tibial was 2+. Pre Procedural Pulses: bilateral dorsalis pedis was 3+. Oxygen started at 3liters/min via nasal canula. bilateral groins was prepped with chloroprep then draped in the usual sterile fashion. Physician notified. Baseline sample Acquired. HR: 82 BPM. Physician arrived. Hemodynamic formulas in Rest were re-calculated based on hemoglobin value from 12/30/2022 3:31:00 AM. Physician scrubbed in. Immediate Pre-Procedure Time Out. Correct Patient: Yes; Correct Procedure: Yes; Correct Site: Yes; Correct Patient Position: Yes; Correct Supplies: Yes; Dried Flammable Prep: Yes; Blood Products Available: No;. Lidocaine 1% infiltrated to the right groin. Arterial access obtained with micropuncture set. A 5 indonesian JL4 catheter in over wire. Multiple views taken of left coronary artery. Catheter removed over the standard wire. A 5 indonesian JR4 catheter in over wire. Catheter removed over the standard wire. Add Inventory: co-fuel pilot engineer, endoflator. 6 indonesian JR 4 guide catheter was inserted over the wire. iFR pressure guidewire advanced through guide to ostial RCA. iFR pressure wire advanced across lesion in ostial RCA. iFR ostial RCA 0.87 mmHg. iFR pressure wire out. Runthrough guidewire was advanced through the guide catheter to lesion in the ostial RCA. Guidewire advanced across lesion. Balloon inserted to lesion in the ostial RCA. Inflation number : 1 A MDT NC EUPHORA RX [id number] BALLOON was prepped and advanced across the Prox RCA , then inflated to 12 MIKE for 0:11 seconds. Inflation number: 2 The MDT NC EUPHORA RX [id number] BALLOON was reinflated across the Prox RCA, to 12 MIKE for 0:15 seconds. Inflation number: 3 The MDT NC EUPHORA RX [id number] BALLOON was reinflated across the Prox RCA, to 20 MIKE for 0:19 seconds. Inflation number: 4 The MDT NC EUPHORA RX [id number] BALLOON was reinflated across the Prox RCA, to 12 MIKE for 0:14 seconds. Balloon out. Angiography performed, checking results. Runthrough wire out. Guide catheter out. ACT drawn. Results 286 seconds. Therapeutic limits - pre-heparin administration 90-150 seconds and monitoring heparin during a vascular procedure >250 seconds. 6 indonesian XB 3.5 obtained, catheter kinked out of packaging. A new 6 indonesian XB 3.5 guide catheter obtained and was inserted over the wire. iFR pressure wire advanced through guide catheter past left main lesion, wire advanced to distal LAD. iFR of left main 0.71mmHg. iFR pressure wire out. Guide catheter out. A Suture was successful obtaining hemostatsis at the Right Femoral artery insertion site. Sheath(s) sutured into position with 2-0 silk and sterile 4x4's and Op-site applied over the site. No oozing or signs and symptoms of hematoma noted. Arterial sheath flushed and connected to tranducer and pressure bag with heparinized saline. Post Procedure: Pulses reassessed and unchanged. PERRLA. Strong, equal hand steward/stewardess dining room bilaterally. No VTE prophylaxis required. Post-op diagnosis: Severe ostial RCA stenosis status post balloon aniogioplasty, Severe left main/LAD stenosis. Complications: None. Estimated blood loss: 5mL-10mL. Responsiveness - Normal response to verbal stimuli; alert and oriented, PERRLA. Airway - Unaffected, no intervention required; spontaneous ventilation. Circulation: W/N/L, pulses unchanged. Nausea/Vomiting: No. Medication's Wasted: Heparin = 1000 units. Medication's Wasted: Lidocaine 1% = 1 mL. Medication's Wasted: Other = Fentanyl 50 mcg. Total IV fluids: 53 mL. Procedure completed. Patient transferred by bed to 1st floor. Vital chart was stopped. Access Site Site: Right Femoral artery Sheath Size: 6 Fr Hemostasis Method: Suture Hemostasis Success: Successful Procedure Medications Start: 11:12 AM Stop: 11:12 AM Medication: Versed Amount: 1 mg Route: I.V. Start: 11:12 AM Stop: 11:12 AM Medication: Fentanyl Amount: 50 mcg Route: I.V. Start: 11:29 AM Stop: 11:29 AM Medication: Heparin Amount: 6000 units Route: I.V. Start: 11:30 AM Stop: 11:30 AM Medication: Versed Amount: 1 mg Route: I.V. Start: 11:38 AM Stop: 11:38 AM Medication: Heparin Amount: 1000 units Route: I.V. I, the attending physician, have reviewed and verified all procedure medications. Yes, all medications given per verbal order History/Risk Factors Hypertension: Yes Dyslipidemia: Yes Peripheral Arterial Disease (PAD): No Myocardial Infarction (NM): Yes Obesity: No Renal Disease: Yes Tobacco Use: Former Dialysis: Current Prior Interventions PCI: Yes CABG: No Valve Surgery: No Date of PCI: 12/28/2022 Report Signatures Finalized by Lino Javier MD on 12/30/2022 03:06 PM
--- NOTE | 2022-12-30 11:12 | PC.NURSE ---
pt off floor for [facility]
--- NOTE | 2022-12-30 11:15 | W.PM.OPSUD ---
Surgery/Procedure H&P Update DATE OF PROCEDURE: December 30, 2022 DATE H&P PERFORMED: 12/28/22 H&P UPDATE INFORMATION: I have reviewed H&P completed within last 30 days, I have examined patient prior to procedure and No changes to prior documentation PREOP DIAGNOSIS: Unstable angina PRIMARY INDICATION FOR PROCEDURE: Unstable angina PLANNED PROCEDURE: Operation Date: 12/28/22 11:00 Proposed Procedures p Cardiac Catheterization(Not Applicable) - Lino Javier M.D Possible percutaneous coronary intervention PATIENT REASSESSED PRIOR TO SEDATION, WITH NO CHANGE NOTED: Yes PHYSICAL EXAM: alert, oriented x 3, clear to auscultation bilaterally and regular rate & rhythm AIRWAY EVAL/ANESTHESIA PLAN: normal airway, ASA III, Local Anesthesia, Risks, benefits & alternatives of sedation and/or procedure discussed and Patient agrees to continue as planned
--- NOTE | 2022-12-30 13:23 | P.PN_ITS ---
Subjective Subjective: Patient was seen this morning, he continues to complain of chest pain this morning, he had breakfast, he is currently off the nitroglycerin drip, no fevers, chills, nausea, vomiting, his repeat troponin was 925, spoke to cardiology, Dr. benton, plans on repeating cardiac catheterization this aft [facility], patient was kept n.p.o. Vitals/I&O/Wt Last Vital Signs Temp 98.1 F 12/30/22 08:00 Pulse 72 12/30/22 08:00 Resp 16 12/30/22 08:00 BP 107/69 12/30/22 08:00 Pulse Ox 100 12/30/22 08:00 O2 Del Method Nasal Cannula 12/30/22 08:00 O2 Flow Rate 3 12/30/22 08:00 12/29/22 12/30/22 12/30/22 22:59 06:59 14:59 Intake Total 590 / 1550 240 / 1790 600 / 600 Balance 590 / 1550 240 / 1790 600 / 600 Physical Exam Const: COMMON NORMALS: no acute distress and patient oriented x3 Resp: COMMON NORMALS: normal respiratory effort, No retractions, No use of accessory muscles and clear to auscultation bilaterally AUSCULTATION: clear to auscultation bilaterally Cardio: COMMON NORMALS: regular rate, regular rhythm, S1 normal heart sound present and S2 normal heart sound present RATE: regular rate RHYTHM: regular rhythm HEART SOUNDS: S1 normal heart sound present and S2 normal heart sound present GI: COMMON NORMALS: Normal to inspection, nondistended, normoactive bowel sounds present and non-tender Extremity: COMMON NORMALS: no pedal edema Neuro: COMMON NORMALS: patient oriented x3 Psych: COMMON NORMALS: mental status grossly normal Data 12/30/22 03:31 12/30/22 03:31 A&P Assessment and plan (1) NSTEMI (non-ST elevated myocardial infarction): Patient with multiple comorbidities as listed above currently presenting for chest pain. -Status post RCA stenting -Continue to have chest pain, placed on nitroglycerin drip, given his anemia, hemoglobin 7.8 was given 1 unit PRBC, -Continues to have chest pain this morning -We will go back to cardiac catheterization lab, keep n.p.o. -EKG without acute ST-T wave changes, troponin 925 Cardiology on consult Aspirin 81, statins, Plavix Nephrology consult to continue peritoneal dialysis while here in the hospital. -Receiving peritoneal dialysis -Ferritin 1384, iron 62 Continue to monitor as inpatient Spoke to nursing staff, spoke to , spoke to patient, spoke to cardiology, (2) Acute anemia: (3) Hyponatremia: (4) Hyperlipidemia: Qualifiers: Hyperlipidemia type: unspecified Qualified Code(s): E78.5 - Hyperlipidemia, unspecified (5) Hypertension: Qualifiers: Hypertension type: essential hypertension Qualified Code(s): I10 - Essential (primary) hypertension (6) Atherosclerotic heart disease of [place] coronary artery with unstable angina pectoris: Attestations Medical Necessity Statement*: Patient requires hospitalization for her chest pain, repeating cardiac catheterization Diagnoses NSTEMI (non-ST elevated myocardial infarction) I21.4 Acute anemia D64.9 Hyponatremia E87.1 Hyperlipidemia E78.5 Hyperlipidemia type: unspecified Hypertension I10 Hypertension type: essential hypertension Atherosclerotic heart disease of [place] coronary artery with unstable angina pectoris I25.110
[2022-12-30 15:23] LABS: Partial Thromboplastin Time 92.9 SECONDS (23.9-36.7)
[2022-12-30 17:57] LABS: Partial Thromboplastin Time 35.4 SECONDS (23.9-36.7)
[2022-12-30] MEDS: sertraline 50 mg Tablet 75 MG PO (18:03)
[2022-12-30] MEDS: atorvastatin 40 mg Tablet PO (18:03)
[2022-12-30] MEDS: zolpidem 5 mg Tablet PO (20:50)
[2022-12-30] MEDS: aspirin 81 mg EC Tablet PO (20:50)
[2022-12-30] MEDS: pregabalin 150 mg Capsule PO (20:50)
--- NOTE | 2022-12-30 23:20 | PC.NURSE ---
[facility] picked pt up for transfer at 2320. Site shealth was pulled from was checked, right groin, dressing was dry and intact. Pt belongings with .
--- NOTE | 2023-01-13 16:30 | P.DS_ITS ---
Discharge Providers Date of Admission: 12/28/22 03:26 Date of Discharge: January 13, 2023 Attending Provider at Admission: Sherri Salinas MD Attending Provider at Discharge: Rony Duran MD Primary Care Provider: Irene Jones Diagnoses at Discharge Discharge Diagnosis (1) End-stage renal disease on peritoneal dialysis: Status: Acute Reason for Visit Reason for Visit: chest pain, sob Hospital Course Hospital Course -This will serve as a transfer summary Anshu Hurt is a 72 year old male with past medical history of CKD on peritoneal dialysis, CAD, hypertension who presents to the hospital with chief complaints of chest pain.? Chest pain started in the last 24 hours, located in the center of chest.? Initially patient thought he had heartburn and has been taking increased amounts of Tums.? When that did not help he started to take ni tro.? He had to take approximately 3 sublingual nitros at home today with no relief in symptoms and decided to come to the ER for further evaluation. EKG does not show any acute ST-T wave changes.? Baseline troponins are elevated in the 300 range with a positive delta at 6 hours with overall concern for NSTEMI.? Patient currently has a nitro patch on.? His chest pain is reduced in intensity from 7 to 8-3 on 10 with the Nitropatch however is not completely relieved. Patient was admitted to [facility] for chest pain, non-ST elevation [place], cardiology was consulted, underwent coronary catheterization, status post drug-eluting stent to mid RCA, monitored after procedure, monitored on aspirin, Plavix however he continued to have chest pain after the procedure, underwent repeat angiogram, found to have ? 1. Severe multivessel CAD including ostial RCA, ? 2. left main and proximal to mid LAD (confirmed with ifr value of 0.71 for left main/LAD). Patent prior stent in left circumflex artery. Balloon angioplasty of ostial RCA performed however the balloon did not completely expand and patient still had significant dampening of pressures with catheter engagement. ? 3. . ? 4. Proximal Right Coronary Artery was treated with a Balloon. -Transferred to tertiary level center for CABG Patient has chronic anemia, hemoglobin chronically between 7-9, last iron and ferritin within normal limits, he denies any bloody or black stools, hemoglobin discharge 7.8, I am discharge him on Protonix, Carafate. See primary care provider in 1 week for repeat hemoglobin, if his hemoglobin does drop low 7, he might require blood transfusion, and might require an EGD, repeat coronary angiogram due to recurrent Physical Exam Const: COMMON NORMALS: no acute distress and patient oriented x3 Cardio: COMMON NORMALS: regular rate, regular rhythm, S1 normal heart sound present and S2 normal heart sound present RATE: regular rate RHYTHM: regular rhythm HEART SOUNDS: S1 normal heart sound present and S2 normal heart sound present GI: COMMON NORMALS: Normal to inspection, nondistended, normoactive bowel sounds present and non-tender Extremity: COMMON NORMALS: no clubbing, cyanosis or edema and no pedal edema Neuro: COMMON NORMALS: patient oriented x3 Psych: COMMON NORMALS: mental status grossly normal Discharge Data Studies Completed and Pending Completed Studies During Hospitalization Category Date Time Status ADMINISTRATOR OF HOME HEALTH request for service Routine Exams 12/28/22 08:57 Completed ADMINISTRATOR OF HOME HEALTH request for service Routine Exams 12/30/22 11:03 Completed XR chest 1V portable [id number] Stat Exams 12/27/22 22:27 Completed CV. echo complete* [id number] Routine Ultrasound 12/28/22 06:30 Completed US echo limited [CV. echo limited [id number]] Stat Ultrasound 12/30/22 08:39 Completed Radiology Impressions Chest X-Ray 12/27/22 22:27 IMPRESSION: 1. Cardiomegaly and mild pulmonary vascular congestion. 2. Right lower lobe atelectasis versus minimal infiltrate. Laboratory Results WBC 9.2 10^3/uL (4.0-10.0) 12/30/22 03:31 RBC 2.46 10^6/uL (4.1-5.3) L 12/30/22 03:31 Hgb 7.6 g/dL (11.7-16.6) L 12/30/22 03:31 Hct 22.5 % (42.0-52.0) L 12/30/22 03:31 MCV 91.5 fl (80-94) 12/30/22 03:31 MCH 30.9 pg (28.0-34.0) 12/30/22 03:31 MCHC 33.8 g/dL (30.0-36.0) 12/30/22 03:31 RDW 15.1 % (12.1-15.1) 12/30/22 03:31 Plt Count 111 10^3/cmm (130-400) L 12/30/22 03:31 MPV 11.0 fL (7.4-10.4) H 12/30/22 03:31 Neut % (Auto) 69.9 % 12/30/22 03:31 Lymph % (Auto) 13.6 % 12/30/22 03:31 [place] % (Auto) 12.7 % 12/30/22 03:31 Eos % (Auto) 3.1 % 12/30/22 03:31 Baso % (Auto) 0.2 % 12/30/22 03:31 Neut # (Auto) 6.40 10^3/uL (1.8-7.7) 12/30/22 03:31 Lymph # (Auto) 1.2 10^3/uL (0.8-4.8) 12/30/22 03:31 [place] # (Auto) 1.2 10^3/uL (0.2-0.9) H 12/30/22 03:31 Eos # (Auto) 0.3 10^3/uL (0.0-0.8) 12/30/22 03:31 Baso # (Auto) 0.0 10^3/uL (0.0-0.1) 12/30/22 03:31 Nucleated RBC % (auto) 0 % 12/30/22 03:31 Nucleated RBCs # 0.0 /100WBC 12/30/22 03:31 APTT 35.4 SECONDS (23.9-36.7) D 12/30/22 17:36 Sodium 128 mmol/L (136-145) L 12/30/22 03:31 Potassium 3.5 mmol/L (3.5-5.1) 12/30/22 03:31 Chloride 94 mmol/L (98-107) L 12/30/22 03:31 Carbon Dioxide 21 mmol/L (22-29) L 12/30/22 03:31 Anion Gap 16.5 (5-19) 12/30/22 03:31 BUN 47 mg/dL (8-23) H 12/30/22 03:31 Creatinine 8.1 mg/dL (0.7-1.2) H* 12/30/22 03:31 GFR Calculation 6.6 mL/min (90-130) L 12/30/22 03:31 Glucose 177 mg/dL (65-115) H 12/30/22 03:31 POC Glucose 149 mg/dL (70-110) H 12/30/22 06:19 Calculated Osmolality 283 mOsm/kg (285-295) L 12/30/22 03:31 Calcium 6.9 mg/dL (8.5-10.5) L 12/30/22 03:31 Phosphorus 6.2 mg/dL (2.5-4.5) H 12/30/22 03:31 Magnesium 1.7 mg/dL (1.7-2.3) 12/30/22 03:31 Iron 62 ug/dL (59-158) 12/29/22 05:44 Ferritin 1384 ng/mL (30-400) H 12/29/22 05:44 Total Bilirubin 0.3 mg/dL (0.15-1.2) 12/30/22 03:31 AST 22 U/L (0-40) 12/30/22 03:31 ALT 17 U/L (0-41) 12/30/22 03:31 Alkaline Phosphatase 99 U/L (40-130) 12/30/22 03:31 Troponin T Gen 5 ng/L 925 ng/L (0-15) H* 12/30/22 03:31 Troponin T Baseline 342 ng/L (0-15) H* 12/27/22 22:20 Troponin T 120 Minute 341.5 ng/L (0-15) H 12/28/22 00:40 Delta Troponin T -0.5 ABS# (0-10) L 12/28/22 00:40 Troponin T Hi Sens 6Hr 362.3 ng/L (0-15) H 12/28/22 04:38 Troponin T Hi Sens 6Hr Delta 20.3 ng/L (0-12) H* 12/28/22 04:38 C-Reactive Protein 109.9 mg/L (0.0-4.9) H 12/30/22 03:31 NT-Pro-B Natriuret Pep 51552 pg/mL (0-125) H 12/30/22 03:31 Total Protein 4.5 g/dL (6.6-8.7) L 12/30/22 03:31 Albumin 2.3 g/dL (3.5-5.2) L 12/30/22 03:31 Globulin 2.2 g/dL (1.3-4.6) 12/30/22 03:31 Blood Type A Positive 12/29/22 15:37 Rho(D) Type Positive 12/29/22 15:37 Antibody Screen Negative 12/29/22 15:37 Crossmatch See Detail 12/29/22 15:37 Vitals Last Vital Signs Temp 98.1 F 12/30/22 08:00 Pulse 89 12/30/22 23:00 Resp 19 H 12/30/22 23:00 BP 133/61 12/30/22 23:15 Pulse Ox 99 12/30/22 20:00 O2 Del Method Nasal Cannula 12/30/22 20:00 O2 Flow Rate 1 12/30/22 20:00 Discharge Plan Discharge Patient Disposition: Home Condition: Stable Prescriptions: New clopidogrel 75 mg Tablet 75 mg PO DAILY 30 Days Qty: 30 0RF pantoprazole 40 mg Tablet,Delayed Release (Dr/Ec) 40 mg PO Q12H 30 Days Qty: 60 0RF nitroglycerin 0.4 mg Tablet, Sublingual 0.4 mg sublingual Q5M PRN (Reason: Chest Pain) 30 Days Qty: 30 0RF Carafate 1 gram tablet 1 g PO BID 30 Days Qty: 60 0RF Continued nitroglycerin [Nitrostat] 0.4 mg tablet, sublingual 0.4 mg SUBLINGUAL Q5M PRN (Reason: Chest Pain) Qty: 25 2RF Rx Instructions: do not exceed 3 doses per episode Bevespi Aerosphere 9-4.8 mcg HFA aerosol inhaler 2 puff inhalation BID Qty: 10.7 3RF magnesium oxide [MagOx] 400 mg (241.3 mg magnesium) Tablet 400 mg PO QAM Creon 12,000-38,000 -60,000 unit Capsule,Delayed Release(Dr/Ec) See Rx Instructions .ROUTE .COMPLEX Rx Instructions: 5 cap po with meals and 2-3 caps with snacks. levothyroxine [Euthyrox] 150 mcg Tablet 150 mcg PO QAM Rx Instructions: Take on an empty stomach sertraline 50 mg Tablet 75 mg PO QPM pregabalin [Lyrica] 150 mg Capsule 150 mg PO QPM calcium acetate(phosphat bind) 667 mg capsule See Rx Instructions .ROUTE .COMPLEX Rx Instructions: Take 4 caps PO with meals and 2 caps with snacks. (Do not exceed 16 caps per day). cholecalciferol (vitamin D3) 1,250 mcg (50,000 unit) capsule 50,000 unit PO Q7D Rx Instructions: on wed amlodipine 10 mg tablet 10 mg PO QAM albuterol sulfate 90 mcg/actuation HFA aerosol inhaler 1 - 2 puff INHALATION Q4H PRN (Reason: Shortness Of Breath) ropinirole 0.5 mg tablet 0.5 mg PO BEDTIME zolpidem 10 mg tablet 10 mg PO BEDTIME RenaPlex-D 800 mcg-12.5 mg -2,000 unit tablet 1 tab PO QAM albuterol sulfate 2.5 mg /3 mL (0.083 %) solution for nebulization 2.5 mg inhalation Q6H PRN (Reason: Shortness Of Breath) ondansetron 8 mg tablet,disintegrating 8 mg PO Q6H PRN (Reason: Nausea And Vomiting) gentamicin 0.1 % cream See Rx Instructions .ROUTE .COMPLEX Rx Instructions: APPLY TO EXIT SITE ONCE A DAY naloxone 4 mg/actuation spray,non-aerosol See Rx Instructions .ROUTE .COMPLEX Rx Instructions: ADMINISTER A SINGLE SPRAY IN ONE NOSTRIL UPON SIGNS OF OPIOID OVERDOSE. CALL 911. REPEAT AFTER 3 MINUTES IF NO RESPONSE. atorvastatin 40 mg tablet 40 mg PO QPM 30 Days Qty: 30 3RF aspirin 81 mg Tablet,Delayed Release (Dr/Ec) 81 mg PO BEDTIME 30 Days Qty: 30 0RF Novolog FlexPen U-100 Insulin 100 unit/mL (3 mL) insulin pen See Rx Instructions .ROUTE .COMPLEX Qty: 15 0RF Rx Instructions: sliding scale tid Changed Basaglar KwikPen U-100 Insulin 100 unit/mL (3 mL) Insulin Pen See Rx Instructions .ROUTE .COMPLEX Qty: 15 0RF Rx Instructions: 10 units according to bag used for dialysis Discontinued famotidine 20 mg tablet 20 mg PO DAILY Discharge Orders: Discharge Order (Routine); Ordered 12/29/22 Ordered By: Rony Duran Referrals: Lucius Stapleton MD [Physician] - (Your follow up appointment with Dr. Stapleton will be scheduled while you are at your appointment with Chely Sarmiento. ) Chely Sarmiento FNP [Nurse Practitioner] - 01/08/23 9:15 am Kiran Reardon MD [Primary Care Provider] - 01/05/23 2:40 pm (Please follow- up with Kiran Reardon on January 05 at 2:40p.m. If you have any questions or need to reschedule. Please call ) Discharge Diet: Cardiac Discharge Activity: Resume usual activity Patient Instructions: Nitroglycerin (By mouth), Sucralfate (By mouth) (Carafate), Clopidogrel (By mouth) (Plavix), Pantoprazole (By mouth) (Protonix), Insulin Glargine (By injection) (Lantus, Lantus SoloStar, Toujeo, Semglee), Coronary Angioplasty (DC), Hypertension (DC), Hyperlipidemia (DC), Chest Pain Stoplight, Opioid Safety, Post Angiogram Home Care Instructions Activity Restrictions/Additional Instructions: - For your stent we have discharged on aspirin and Plavix once daily -Please do not stop taking aspirin and Plavix as these are keeping your stent open -If you develop bloody or black stools go to emergency room -You have chronic anemia, your hemoglobin on discharge is 7.8, please see your primary care provider next week for recheck hemoglobin -If her hemoglobin drops below 7 you might require a unit of blood -See cardiology next week -If you have recurrent chest pain please come back to emergency room Discharge Attestations Time Spent in Discharge Care*: greater than 30 min Quality Metrics Clinical Quality Measures [ Acute Myocardial Infaction { Clinical Trial Participant: No; Contraindication to aspirin: None; Aspirin prescribed; Contraindication to statin: None; Statin prescribed; Contraindication to PCI: None; PCI performed;}] Coding Level of Care Code Acute Code for Chg Fwd Diagnoses End-stage renal disease on peritoneal dialysis N18.6; Z99.2
== END 2022-12-30 23:24 | disposition home or self-care (01) | DRG 246 ==
LOC: ER 12-28 02:12 → CSU 12-28 05:13
PROVIDERS: Internal Medicine; Internal Medicine Cardiovascular Disease; Admitting Provider Student in an Organized Health Care Education/Training Program; Emergency Provider Emergency Medicine; PCP Family Medicine; Visit Provider Family Medicine
PROC: 027034Z Dilation of Coronary Artery, One Artery with Drug-eluting Intraluminal Device, Percutaneous Approach (ICD-10-PCS; principal; 2022-12-28 11:00)
PROC: 027034Z Dilation of Coronary Artery, One Artery with Drug-eluting Intraluminal Device, Percutaneous Approach (ICD-10-PCS; 2022-12-28 11:00)
DX: T82.855A Stenosis of coronary artery stent, initial encounter (principal); I21.4 Non-ST elevation (NSTEMI) myocardial infarction; N18.6 End stage renal disease; E87.1 Hypo-osmolality and hyponatremia; I12.0 Hypertensive chronic kidney disease with stage 5 chronic kidney disease or end stage renal disease; Y71.8 Miscellaneous cardiovascular devices associated with adverse incidents, not elsewhere classified; G47.30 Sleep apnea, unspecified; Z99.89 Dependence on other enabling machines and devices; D63.1 Anemia in chronic kidney disease; E78.5 Hyperlipidemia, unspecified; E11.22 Type 2 diabetes mellitus with diabetic chronic kidney disease; Z99.2 Dependence on renal dialysis; E11.43 Type 2 diabetes mellitus with diabetic autonomic (poly)neuropathy; K31.84 Gastroparesis; J44.9 Chronic obstructive pulmonary disease, unspecified; F32.A Depression, unspecified; R07.9 Chest pain, unspecified; Z87.891 Personal history of nicotine dependence; Z87.01 Personal history of pneumonia (recurrent); G20 Parkinson's disease; E03.9 Hypothyroidism, unspecified; M10.9 Gout, unspecified
CPT/HCPCS: 12345; 36415; 36416; 36430; 71045; 80048; 80053; 82728; 82962; 83540; 83735; 83880; 84100; 84484; 85025; 85347; 85730; 86140; 86850; 86900; 86920; 92920; 93005; 93306; 93308; 93454; 93571; 93572; 96365; 96372; 96375; 96376; 99152; 99153; 99291; C1725; C1769; C1874; C1887; C1894; C9113; C9600; J1644; J2250; J2270; J2405; J3010; J7030; J7070; P9016; Q3014; Q4081; Q9967

== ENCOUNTER 2023-01-30 09:34 | Inpatient (IN) | payer MEDICARE, OTHER, SELFPAY ==
[2023-01-30] VITALS (12 sets, daily range): BP systolic 92–157; BP diastolic 61–91; PULSE 68–85; RESP 16–29; TEMP 36.4–36.8; O2SAT 95–98; BMI 25.1
--- NOTE | 2023-01-30 09:55 | ECG_ITS ---
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 Measurements Intervals [place] Rate: 67 P: 59 WV: 221 QRS: -15 QRSD: 116 T: 151 QT: 424 QTc: 449 Interpretive Statements SINUS RHYTHM WITH FIRST DEGREE AV BLOCK MINIMAL VOLTAGE CRITERIA FOR LVH, CONSIDER NORMAL VARIANT [MEETS CRITERIA IN ONE OF: R(aVL), S(V1), R(V5), R(V5/V6)+S(V1)] SEPTAL MYOCARDIAL INFARCTION , OF INDETERMINATE AGE [40+ ms Q WAVE IN V1/V2] Compared to ECG 12/29/2022 23:10:23 Myocardial infarct finding now present T-wave abnormality no longer present Electronically Signed On 01-30-2023 12:28:17 CDT by Lino Javier M.D. [id number]
--- NOTE | 2023-01-30 10:26 | XRR_ITS ---
PROCEDURE INFORMATION: Exam: XR Chest Exam date and time: 01/30/2023 10:42 AM Age: 72 years old Clinical indication: Cough and dyspnea; Additional info: Dyspnea/cough TECHNIQUE: Imaging protocol: Radiologic exam of the chest. Views: 1 view. COMPARISON: CR (CHEST, ) 12/27/2022 10:37 PM FINDINGS: Lungs: Right lower lobe interstitial densities are present consistent with atelectasis. Pleural spaces: Right lower lobe pleural effusion. No pneumothorax. Heart/Mediastinum: Unremarkable. No cardiomegaly. Bones/joints: Metallic sternotomy wires are present. Electronic stimulator is seen in the right anterior chest the lead extends into the skull. XR/XR chest 1V portable [id number] IMPRESSION: 1. Right lower lobe pleural effusion 2. Right lower lobe atelectasis 3. Metallic sternotomy wires are present 4. Electronic stimulator right chest leads extending to the skull
--- NOTE | 2023-01-30 10:28 | W.ED.CHESTPA ---
HPI - Chest Pain General: Chief Complaint: Chest Pain Stated Complaint: chest pain, diarrhea Time Seen by Provider: 01/30/23 09:59 Source: patient Mode of arrival: ambulatory History of Present Illness: 72-year-old male with a known history of coronary disease presents to the ER with chest pain. Chest pain comes and goes radiates into his right shoulder he has a cardiac history earlier this month he was seen here he had stents placed in the [employer] but had other disease that was not amenable to intervention he was transferred to [facility] had coronary artery bypass graft. Since then has been doing relatively well overnight he began having chest discomfort comes and goes radiates into his right shoulder it is worse at times with deep inspiration. No vomiting no dyspnea no diaphoresis. Patient is afebrile satting normally and is not tachycardic. MD complaint: chest pain Onset (ago): hour(s) Timing of current episode: episodic Prior episodes: Yes Onset: during rest Pain radiation: none Severity: mild Exacerbating factors: inspiration and palpation Associated symptoms: Reports other; Deny abdominal pain, diaphoresis, dyspnea, fever(s), leg edema, nausea, palpitations, sense of impending doom, syncope or vomiting Review of Systems Const: Denies: fever(s) or diaphoresis Card: Denies: palpitations or syncope Resp: Denies: dyspnea GI: Denies: abdominal pain, nausea or vomiting [facility] PFSH: Medical History Acute hypokalemia Bilateral wheezing Chest pain COPD exacerbation Coronary artery disease Depression Diabetes End stage renal disease ESRD (end stage renal disease) Essential tremor Gastroparesis Gout Hypercapnic respiratory failure Hyperlipidemia Hypertension Hypothyroidism (acquired) Lung entrapment Pancreatitis takes chronic pancrease Parkinsonian tremor Peritoneal dialysis catheter in place Pleural effusion Pneumonia Pneumonia Pulmonary nodule Stage 5 chronic kidney disease Tremor Vitiligo Weakness Surgical History History of appendectomy History of carpal tunnel release left wrist 1975 History of cholecystectomy Family History Other CAD (coronary artery disease) Cancer Diabetes Hypertension Denies family history of Stroke Social History Smoking and tobacco status: former smoker Quit status (tobacco): has quit using tobacco Year quit tobacco: 1993 Former quit date comment: 2 ppd X 20 years Alcohol intake: never Substance/Drug Use: never Household members: spouse Marital status: Course Vital Signs: Vital signs: Vital Signs Temperature 98.3 F 01/31/23 12:05 Pulse Rate 75 01/31/23 16:00 Respiratory Rate 19 H 01/31/23 16:00 Blood Pressure 146/86 01/31/23 16:00 Pulse Oximetry 94 01/31/23 16:00 Oxygen Delivery Me thod Room Air, Nasal C annula 01/31/23 16:00 Oxygen Flow Rate 97 01/30/23 16:18 MDM - Chest Pain Medical Decision Making Discussed with Dr. King he recommends admitting patient to the hospital he did seem to get a little bit of relief of his discomfort with the IV nitro. Will admit continue same medications discussed with hospitalist orders written Medical Records I reviewed the patient's medical records. Lab Data I reviewed the patient's lab results. 01/31/23 00:32 01/31/23 00:32 Radiology Impressions Chest X-Ray 01/30/23 10:26 IMPRESSION: 1. Right lower lobe pleural effusion 2. Right lower lobe atelectasis 3. Metallic sternotomy wires are present 4. Electronic stimulator right chest leads extending to the skull Chest CT 01/31/23 10:29 IMPRESSION: 1. Prior sternotomy and coronary artery bypass grafting. 2. Left mildly comminuted 1st rib fracture. Questionable acute lateral left 2nd and 3rd rib fractures. 3. Dilated ascending thoracic aorta measured at 4.1 cm. 4. Small bilateral pleural effusions with compressive atelectasis. 5. Mild cardiomegaly. 6. There is a moderate amount of free intra-abdominal fluid. Laboratory Results WBC 7.8 10^3/uL (4.0-10.0) 01/30/23 10:16 RBC 3.36 10^6/uL (4.1-5.3) L 01/30/23 10:16 Hgb 9.8 g/dL (11.7-16.6) L 01/30/23 10:16 Hct 30.8 % (42.0-52.0) L 01/30/23 10:16 MCV 91.7 fl (80-94) 01/30/23 10:16 MCH 29.2 pg (28.0-34.0) 01/30/23 10:16 MCHC 31.8 g/dL (30.0-36.0) 01/30/23 10:16 RDW 17.2 % (12.1-15.1) H 01/30/23 10:16 Plt Count 193 10^3/cmm (130-400) 01/30/23 10:16 MPV 9.8 fL (7.4-10.4) 01/30/23 10:16 Neut % (Auto) 73.4 % 01/30/23 10:16 Lymph % (Auto) 11.3 % 01/30/23 10:16 [place] % (Auto) 9.3 % 01/30/23 10:16 Eos % (Auto) 5.0 % 01/30/23 10:16 Baso % (Auto) 0.4 % 01/30/23 10:16 Neut # (Auto) 5.69 10^3/uL (1.8-7.7) 01/30/23 10:16 Lymph # (Auto) 0.9 10^3/uL (0.8-4.8) 01/30/23 10:16 [place] # (Auto) 0.7 10^3/uL (0.2-0.9) 01/30/23 10:16 Eos # (Auto) 0.4 10^3/uL (0.0-0.8) 01/30/23 10:16 Baso # (Auto) 0.0 10^3/uL (0.0-0.1) 01/30/23 10:16 Nucleated RBC % (auto) 0 % 01/30/23 10:16 Nucleated RBCs # 0.0 /100WBC 01/30/23 10:16 Sodium 132 mmol/L (136-145) L 01/30/23 10:16 Potassium 4.1 mmol/L (3.5-5.1) 01/30/23 10:16 Chloride 91 mmol/L (98-107) L 01/30/23 10:16 Carbon Dioxide 23 mmol/L (22-29) 01/30/23 10:16 Anion Gap 22.1 (5-19) H 01/30/23 10:16 BUN 36 mg/dL (8-23) H 01/30/23 10:16 Creatinine 7.3 mg/dL (0.7-1.2) H* 01/30/23 10:16 GFR Calculation 7.5 mL/min (90-130) L 01/30/23 10:16 Glucose 215 mg/dL (65-115) H 01/30/23 10:16 Calculated Osmolality 289 mOsm/kg (285-295) 01/30/23 10:16 Calcium 7.9 mg/dL (8.5-10.5) L 01/30/23 10:16 Total Bilirubin 0.3 mg/dL (0.15-1.2) 01/30/23 10:16 AST 24 U/L (0-40) 01/30/23 10:16 ALT 9 U/L (0-41) 01/30/23 10:16 Alkaline Phosphatase 146 U/L (40-130) H 01/30/23 10:16 Troponin T Baseline 454 ng/L (0-15) H* 01/30/23 10:16 Troponin T 120 Minute 445.6 ng/L (0-15) H 01/30/23 12:26 Delta Troponin T -8.4 ABS# (0-10) L 01/30/23 12:26 Total Protein 5.2 g/dL (6.6-8.7) L 01/30/23 10:16 Albumin 2.8 g/dL (3.5-5.2) L 01/30/23 10:16 Globulin 2.4 g/dL (1.3-4.6) 01/30/23 10:16 Discharge Plan Discharge Patient Disposition: Admitted As Inpatient Admit Provider: Suleman Hemphill Clinical Impression: Atherosclerotic heart disease of [place] coronary artery with unstable angina pectoris, Hypertension, Diabetes, End-stage renal disease on peritoneal dialysis Condition: Stable Coding Level of Care Code ED Robotics Engineer for Anatoliy Hickman
--- NOTE | 2023-01-30 10:32 | ECG_ITS ---
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 Measurements Intervals [place] Rate: 73 P: 49 [place]: 223 QRS: -19 QRSD: 102 T: 232 QT: 424 QTc: 467 Interpretive Statements SINUS RHYTHM WITH FIRST DEGREE AV BLOCK ANTEROSEPTAL MYOCARDIAL INFARCTION , OF INDETERMINATE AGE [40+ ms Q WAVE IN V1-V4] MODERATE T-WAVE ABNORMALITY, CONSIDER INFERIOR ISCHEMIA [-0.1+ mV T-WAVE IN II/aVF] Compared to ECG 01/30/2023 09:50:47 T-wave abnormality now present Possible ischemia now present Myocardial infarct finding still present Electronically Signed On 01-30-2023 12:28:13 CDT by Lino Javier M.D. [id number]
[2023-01-30 11:02] LABS: Basophils % 0.4 %; Eosinophils # 0.4 10^3/uL (0.0-0.8); Hematocrit 30.8 % (42.0-52.0); Hemoglobin 9.8 g/dL (11.7-16.6); Lymphocytes # 0.9 10^3/uL (0.8-4.8); Lymphocytes % 11.3 %; Mean Corpuscular HGB Conc 31.8 g/dL (30.0-36.0); Mean Corpuscular Hemoglobin 29.2 pg (28.0-34.0); Mean Corpuscular Volume 91.7 fl (80-94); Mean Platelet Volume 9.8 fL (7.4-10.4); Monocytes # 0.7 10^3/uL (0.2-0.9); Monocytes % 9.3 %; Neutrophils # 5.69 10^3/uL (1.8-7.7); Neutrophils % 73.4 %; Nucleated Red Blood Cells % 0 %; Platelet Count 193 10^3/cmm (130-400); Red Blood Count 3.36 10^6/uL (4.1-5.3); Red Cell Distribution Width 17.2 % (12.1-15.1); White Blood Count 7.8 10^3/uL (4.0-10.0)
[2023-01-30 11:36] LABS: Troponin(5th) Baseline 454 ng/L (0-15)
[2023-01-30 11:49] LABS: Alanine Aminotransferase 9 U/L (0-41); Albumin Level 2.8 g/dL (3.5-5.2); Alkaline Phosphatase 146 U/L (40-130); Anion Gap 22.1 (5-19); Aspartate Amino Transferase 24 U/L (0-40); Blood Urea Nitrogen 36 mg/dL (8-23); Calcium 7.9 mg/dL (8.5-10.5); Carbon Dioxide 23 mmol/L (22-29); Chloride 91 mmol/L (98-107); Globulin 2.4 g/dL (1.3-4.6); Glomerular Filtration Rate 7.5 mL/min (90-130); Glucose 215 mg/dL (65-115); Osmolality Calculated 289 mOsm/kg (285-295); Potassium 4.1 mmol/L (3.5-5.1); Sodium 132 mmol/L (136-145); Total Bilirubin 0.3 mg/dL (0.15-1.2); Total Protein 5.2 g/dL (6.6-8.7)
[2023-01-30] MEDS: nitroglycerin drip 50 MG/250 ML PREMIX IV (12:02)
--- NOTE | 2023-01-30 12:27 | ECG_ITS ---
[facility] Test Date: 2023-01-30 Pat Name: Anshu Hurt Department: Room: Gender: Male Heart Nurse: : 1950 Requested By: Dago Andrew Order Number: [id number] Murtaza MD: Lino Javier M.D. Measurements Intervals [place] Rate: 71 P: 64 WV: 237 QRS: -13 QRSD: 92 T: 250 QT: 430 QTc: 469 Interpretive Statements SINUS RHYTHM WITH FIRST DEGREE AV BLOCK SEPTAL MYOCARDIAL INFARCTION , PROBABLY OLD [40+ ms Q WAVE IN V1/V2] MODERATE T-WAVE ABNORMALITY, CONSIDER INFERIOR ISCHEMIA [-0.1+ mV T-WAVE IN II/aVF] Compared to ECG 01/30/2023 10:32:15 No significant changes Electronically Signed On 01-30-2023 12:29:58 CDT by Lino Javier M.D. [id number]
[2023-01-30 12:57] LABS: Troponin 5 2HR Delta -8.4 ABS# (0-10)
[2023-01-30 12:58] LABS: Troponin 5 2HR 445.6 ng/L (0-15)
--- NOTE | 2023-01-30 16:14 | ECG_ITS ---
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 Measurements Intervals [place] Rate: 78 P: 77 [place]: 245 QRS: -23 QRSD: 93 T: -82 QT: 416 QTc: 475 Interpretive Statements SINUS RHYTHM WITH FIRST DEGREE AV BLOCK BORDERLINE LEFT AXIS DEVIATION [QRS AXIS < -20] NONSPECIFIC ST & T-WAVE ABNORMALITY Compared to ECG 01/30/2023 12:15:46 Myocardial infarct finding no longer present Possible ischemia no longer present T-wave abnormality still present Electronically Signed On 01-30-2023 17:19:27 CDT by Lino Javier M.D. [id number]
--- NOTE | 2023-01-30 16:22 | PC.NURSE ---
pt used his own dexcom to check his blood sugar, result is 121
--- NOTE | 2023-01-30 16:29 | PM.HP ---
Providers/Chief Complaint Admitting Physician: Suleman Hemphill MD Primary Care Provider: Irene Jones Chief Complaint: chest pain, diarrhea History of Present Illness Anshu Hurt is a 72 year old male with PMH of HTN.DM, ESRD ON PD , CAD S/P recent PCI followed by CABG ON JANUARY 11, at [facility].F came in today with c/o central pressure like non radiating cheest pain that started since yesterday and since then is gradually getting worsened,he is not complaining of pain with breathing,sob, palpitation, diaphoresis, fever, cough, xray chest: Right lower lobe pleural effusion, EKG has showed, S/R with TWI in inferior leads, troponin trend : [phone] his other pertinent labs, have been reviewed, vitals have been reviewed.Patient was started on nitro drip. Review of Systems General: Reports: 10 or more systems reviewed and unremarkable except in HPI and below Const: Denies: fever(s), chills, body aches, change in appetite or diaphoresis Card: Denies: palpitations, edema, swelling of feet/ankles, dyspnea on exertion, orthopnea or leg pain with exertion Resp: Denies: dyspnea, productive cough, wheezing or pain on inspiration GI: Denies: abdominal pain, nausea, vomiting, diarrhea or constipation : Denies: flank pain or difficulty urinating Musc: Denies: back pain, extremity pain or extremity swelling Neuro: Denies: headache(s), difficulty walking or confusion Medications/Allergies Home Medications Medication Instructions Recorded Confirmed Last Taken Type calcium acetate(phosphat bind) 667 See Rx Instructions .Route .COMPLEX 02/18/22 01/30/23 03/09/22 History mg capsule cholecalciferol (vitamin D3) 1,250 50,000 unit PO Q7D 02/18/22 01/30/23 01/27/23 History mcg (50,000 unit) capsule levothyroxine 150 mcg tablet 150 mcg PO QAM 02/18/22 01/30/23 01/30/23 History (Euthyrox) [id number] See Rx Instructions .Route .COMPLEX 02/18/22 01/30/23 01/30/23 History 12,000-38,000-60,000 unit capsule,delayed rel (Creon) pregabalin 150 mg capsule (Lyrica) 150 mg PO QPM 02/18/22 01/30/23 01/29/23 History sertraline 50 mg tablet 75 mg PO QPM 02/18/22 01/30/23 01/29/23 History nitroglycerin 0.4 mg sublingual 0.4 mg sublingual Q5M PRN Chest 04/15/22 01/30/23 Unknown Rx tablet (Nitrostat) Pain #25 tabs glycopyrrolate 9 mcg-formoterol 2 puff inhalation BID #10.7 grams 12/19/22 01/30/23 01/30/23 Rx 4.8 mcg HFA aerosol inhaler (Bevespi Aerosphere) albuterol sulfate 90 mcg/actuation 1 - 2 puff inhalation Q4H PRN 12/28/22 01/30/23 Unknown History aerosol inhaler Shortness Of Breath gentamicin 0.1 % topical cream See Rx Instructions .Route .COMPLEX 12/28/22 01/30/23 Unknown History naloxone 4 mg/actuation nasal spray See Rx Instructions .Route .COMPLEX 12/28/22 01/30/23 Unknown History ropinirole 0.5 mg tablet 0.5 mg PO BEDTIME 12/28/22 01/30/23 01/29/23 History vit B,C-folic ac 800 mcg-zinc 12.5 1 tab PO QAM 12/28/22 01/30/23 01/30/23 History mg-selen-D3 2,000 unit-vit E tablet (RenaPlex-D) zolpidem 10 mg tablet 10 mg PO BEDTIME 12/28/22 01/30/23 01/29/23 History aspirin 81 mg tablet,delayed 81 mg PO BEDTIME 30 days #30 tabs 12/29/22 01/30/23 01/29/23 Rx release atorvastatin 40 mg tablet 40 mg PO QPM 30 days #30 tabs 12/29/22 01/30/23 01/30/23 Rx insulin aspart U-100 100 unit/mL See Rx Instructions .Route 12/29/22 01/30/23 01/30/23 Rx (3 mL) subcutaneous pen (Novolog .COMPLEX #15 mL FlexPen U-100 Insulin aspart) insulin glargine 100 unit/mL (3 See Rx Instructions .Route 12/29/22 01/30/23 03/09/22 Rx mL) subcutaneous pen (Basaglar .COMPLEX #15 mL KwikPen U-100 Insulin) famotidine 20 mg tablet 20 mg PO DAILY 01/30/23 01/30/23 01/30/23 History isosorbide mononitrate 60 mg 60 mg PO DAILY 01/30/23 01/30/23 01/30/23 History tablet,extended release 24 hr methocarbamol 500 mg tablet 500 mg PO BID 01/30/23 01/30/23 01/30/23 History metoprolol succinate 25 mg 25 mg PO DAILY 01/30/23 01/30/23 01/30/23 History tablet,extended release 24 hr vancomycin 50 mg/mL oral solution 125 mg PO Q6H 01/30/23 01/30/23 01/30/23 History Allergies Allergy/AdvReac Type Severity Reaction Status Date / Time carbidopa [From Sinemet] Allergy Unknown Verified 01/30/23 11:11 levodopa [From Sinemet] Allergy Unknown Verified 01/30/23 11:11 PFSH Acute PFSH: Medical History Acute hypokalemia Bilateral wheezing Chest pain COPD exacerbation Coronary artery disease Depression Diabetes End stage renal disease ESRD (end stage renal disease) Essential tremor Gastroparesis Gout Hypercapnic respiratory failure Hyperlipidemia Hypertension Hypothyroidism (acquired) Lung entrapment Pancreatitis takes chronic pancrease Parkinsonian tremor Peritoneal dialysis catheter in place Pleural effusion Pneumonia Pneumonia Pulmonary nodule Stage 5 chronic kidney disease Tremor Vitiligo Weakness Surgical History History of appendectomy History of carpal tunnel release left wrist 1975 History of cholecystectomy Family History Other CAD (coronary artery disease) Cancer Diabetes Hypertension Denies family history of Stroke Social History Smoking and tobacco status: former smoker Quit status (tobacco): has quit using tobacco Year quit tobacco: 1993 Former quit date comment: 2 ppd X 20 years Alcohol intake: never Substance/Drug Use: never Household members: spouse Marital status: Vitals/I&O/Wt Last Vital Signs Temp 97.5 F L 01/30/23 09:47 Pulse 76 01/30/23 15:00 Resp 18 01/30/23 16:09 BP 151/91 01/30/23 12:15 Pulse Ox 97 01/30/23 15:00 O2 Del Method Room Air 01/30/23 09:47 01/30/23 01/30/23 01/30/23 06:59 14:59 22:59 Intake Total 13.1 / 13.1 Balance 13.1 / 13.1 Weight last 48 hrs Weight 81.647 kg Physical Exam Const: COMMON NORMALS: patient oriented x3 HENMT: COMMON NORMALS: normocephalic and atraumatic HEAD & SCALP: normocephalic and atraumatic Resp: COMMON NORMALS: clear to auscultation bilaterally EFFORT & INSPECTION: Yes symmetric chest movement AUSCULTATION: clear to auscultation bilaterally Cardio: COMMON NORMALS: regular rate, regular rhythm, S1 normal heart sound present, S2 normal heart sound present, No gallops present (Cardio), No murmurs present (Cardio), No rub (Cardio) and Peripheral pulses 2+ throughout RATE: regular rate RHYTHM: regular rhythm HEART SOUNDS: S1 normal heart sound present and S2 normal heart sound present PERIPHERAL PULSES: Peripheral pulses 2+ throughout GI: COMMON NORMALS: Normal to inspection, nondistended, normoactive bowel sounds present, Soft to palpation, non-tender, No hepatosplenomegaly present and no masses AUSCULTATION: Yes normoactive bowel sounds PALPATION: Yes Soft to palpation and Yes No hepatosplenomegaly present RECTAL EXAM: Yes deferred Extremity: COMMON NORMALS: no clubbing, cyanosis or edema and no pedal edema Neuro: COMMON NORMALS: patient oriented x3 Data 01/30/23 10:16 01/30/23 10:16 A&P Assessment and plan (1) Hyponatremia: (2) Hypertension: Qualifiers: Hypertension type: essential hypertension Qualified Code(s): I10 - Essential (primary) hypertension (3) NSTEMI (non-ST elevated myocardial infarction): (4) Atherosclerotic heart disease of [place] coronary artery with unstable angina pectoris: (5) End-stage renal disease on peritoneal dialysis: (6) Diabetes: Qualifiers: Chronic kidney disease stage: on chronic dialysis Diabetes mellitus complication detail: with chronic kidney disease Diabetes mellitus complication status: with kidney complications Diabetes mellitus supervisor intermediates insulin use: with supervisor intermediates use Diabetes mellitus type: type 2 Qualified Code(s): E11.22 - Type 2 diabetes mellitus with diabetic chronic kidney disease; N18.6 - End stage renal disease; Z79.4 - group home (current) use of insulin; Z99.2 - Dependence on renal dialysis (7) Chest pain: Plan 2 year old male with PMH of HTN.DM, ESRD ON PD , CAD S/P recent PCI followed by CABG ON JANUARY 11, at [facility].F came in today with c/o central pressure like non radiating cheest pain that started since yesterday and since then is gradually getting worsened,he is not complaining of pain with breathing,sob, palpitation, diaphoresis, fever, cough, Assessment : NSTEMI xray chest: Right lower lobe pleural effusion, EKG has showed, S/R with TWI in inferior leads, troponin trend : [phone] Recent 2 D Echo reviewed Cureently on heparin drip as well as on aspirin, statin, beta catie, imdur Continue nitro drip Cardiology on Board NPO after midnight Hypertension : On imdur, received one dose of hydralazine CAD S/P CABG/PCI: DM2: SSI, Monitor FSG Hypothyroidism : Continue levothyroxine ESRD on PD: Continue with P/D Nephrology on board Recent h/o CDI: On day 8 of po vancomycin to complete total 10 day course Code status : Full Code DVT PPX Heparin drip will be good. Attestations Medical Necessity Statement*: Patient needs to be in hospital for the management of chest pain.Anticipated LOS Greater then 2 midnights. Coding Level of Care Code Acute Code for g Fwd Diagnoses Hyponatremia E87.1 Hypertension I10 Hypertension type: essential hypertension NSTEMI (non-ST elevated myocardial infarction) I21.4 Atherosclerotic heart disease of [place] coronary artery with unstable angina pectoris I25.110 End-stage renal disease on peritoneal dialysis N18.6; Z99.2 Diabetes E11.22; N18.6; Z79.4; Z99.2 Chronic kidney disease stage: on chronic dialysis Diabetes mellitus complication detail: with chronic kidney disease Diabetes mellitus complication status: with kidney complications Diabetes mellitus supervisor intermediates insulin use: with supervisor intermediates use Diabetes mellitus type: type 2 Chest pain R07.9
[2023-01-30] MEDS: acetaminophen 325 mg Tablet 650 MG PO (16:44)
[2023-01-30 17:03] LABS: Troponin 5 6HR 460.7 ng/L (0-15); Troponin 5 6HR Delta 6.7 ng/L (0-12)
--- NOTE | 2023-01-30 18:04 | PM.CONSULT ---
Providers/Reason For Consult Consulting Physician/Specialty*: Sharon Hauser DO, telenephrology Reason for Consult*: ESRD on peritoneal dialysis Requesting Physician: Suleman Hemphill MD Attending Physician: Suleman Hemphill MD Primary Care Provider: Irene Jones History of Present Illness History of Present Illness Anshu Hurt is a 72 year old male presented to ER for evaluationo of chest pain. Reports he had coronary stent placed one month ago, then 3 vesslel CABG 3 weeks ago. Chest pain developed 2 days ago. Not incisional, pleuritic or positional. performs his CCPD, all 1.5%, 12 liters overnight, dwells with 2 L extraneal during day. She brought all supplies to completed his treatments in the hospital. He is completing treatment for C.diff. Stools are chronically loose due to pancreas insufficiency. Receives mircera at [facility], Has had several transfusions pRBC in last few weeks Medications/Allergies Home Medications Medication Instructions Recorded Confirmed Last Taken Type calcium acetate(phosphat bind) 667 See Rx Instructions .Route .COMPLEX 02/18/22 01/30/23 03/09/22 History mg capsule cholecalciferol (vitamin D3) 1,250 50,000 unit PO Q7D 02/18/22 01/30/23 01/27/23 History mcg (50,000 unit) capsule levothyroxine 150 mcg tablet 150 mcg PO QAM 02/18/22 01/30/23 01/30/23 History (Euthyrox) [id number] See Rx Instructions .Route .COMPLEX 02/18/22 01/30/23 01/30/23 History 12,000-38,000-60,000 unit capsule,delayed rel (Creon) pregabalin 150 mg capsule (Lyrica) 150 mg PO QPM 02/18/22 01/30/23 01/29/23 History sertraline 50 mg tablet 75 mg PO QPM 02/18/22 01/30/23 01/29/23 History nitroglycerin 0.4 mg sublingual 0.4 mg sublingual Q5M PRN Chest 04/15/22 01/30/23 Unknown Rx tablet (Nitrostat) Pain #25 tabs glycopyrrolate 9 mcg-formoterol 2 puff inhalation BID #10.7 grams 12/19/22 01/30/23 01/30/23 Rx 4.8 mcg HFA aerosol inhaler (Bevespi Aerosphere) albuterol sulfate 90 mcg/actuation 1 - 2 puff inhalation Q4H PRN 12/28/22 01/30/23 Unknown History aerosol inhaler Shortness Of Breath gentamicin 0.1 % topical cream See Rx Instructions .Route .COMPLEX 12/28/22 01/30/23 Unknown History naloxone 4 mg/actuation nasal spray See Rx Instructions .Route .COMPLEX 12/28/22 01/30/23 Unknown History ropinirole 0.5 mg tablet 0.5 mg PO BEDTIME 12/28/22 01/30/23 01/29/23 History vit B,C-folic ac 800 mcg-zinc 12.5 1 tab PO QAM 12/28/22 01/30/23 01/30/23 History mg-selen-D3 2,000 unit-vit E tablet (RenaPlex-D) zolpidem 10 mg tablet 10 mg PO BEDTIME 12/28/22 01/30/23 01/29/23 History aspirin 81 mg tablet,delayed 81 mg PO BEDTIME 30 days #30 tabs 12/29/22 01/30/23 01/29/23 Rx release atorvastatin 40 mg tablet 40 mg PO QPM 30 days #30 tabs 12/29/22 01/30/23 01/30/23 Rx insulin aspart U-100 100 unit/mL See Rx Instructions .Route 12/29/22 01/30/23 01/30/23 Rx (3 mL) subcutaneous pen (Novolog .COMPLEX #15 mL FlexPen U-100 Insulin aspart) insulin glargine 100 unit/mL (3 See Rx Instructions .Route 12/29/22 01/30/23 03/09/22 Rx mL) subcutaneous pen (Basaglar .COMPLEX #15 mL KwikPen U-100 Insulin) famotidine 20 mg tablet 20 mg PO DAILY 01/30/23 01/30/23 01/30/23 History isosorbide mononitrate 60 mg 60 mg PO DAILY 01/30/23 01/30/23 01/30/23 History tablet,extended release 24 hr methocarbamol 500 mg tablet 500 mg PO BID 01/30/23 01/30/23 01/30/23 History metoprolol succinate 25 mg 25 mg PO DAILY 06/01/30/23 01/30/23 History tablet,extended release 24 hr vancomycin 50 mg/mL oral solution 125 mg PO QID 01/30/23 01/30/23 01/30/23 History Allergies Allergy/AdvReac Type Severity Reaction Status Date / Time carbidopa [From Sinemet] Allergy Unknown Verified 01/30/23 11:11 levodopa [From Sinemet] Allergy Unknown Verified 01/30/23 11:11 Current Medications Generic Name Dose Route Start Last Admin Trade Name Freq PRN Reason Stop Dose Admin Acetaminophen 650 mg 01/30/23 15:41 01/30/23 16:44 Acetaminophen 325 Mg Tablet PO 650 mg Q6H PRN Administration Mild/Mod Pain Or Temp >/= 101 Nitroglycerin/Dextrose 50 mg in 250 mls @ 0 mls/hr 01/30/23 11:45 01/30/23 17:57 Nitroglycerin Drip IV 40 mcg/min .Q0M SHAMAR 12 mls/hr Titration Protocol Per Protocol PFSH Acute PFSH: Medical History Acute hypokalemia Bilateral wheezing Chest pain COPD exacerbation Coronary artery disease Depression Diabetes End stage renal disease ESRD (end stage renal disease) Essential tremor Gastroparesis Gout Hypercapnic respiratory failure Hyperlipidemia Hypertension Hypothyroidism (acquired) Lung entrapment Pancreatitis takes chronic pancrease Parkinsonian tremor Peritoneal dialysis catheter in place Pleural effusion Pneumonia Pneumonia Pulmonary nodule Stage 5 chronic kidney disease Tremor Vitiligo Weakness Surgical History History of appendectomy History of carpal tunnel release left wrist 1975 History of cholecystectomy Family History Other CAD (coronary artery disease) Cancer Diabetes Hypertension Denies family history of Stroke Social History Smoking and tobacco status: former smoker Quit status (tobacco): has quit using tobacco Year quit tobacco: 1993 Former quit date comment: 2 ppd X 20 years Alcohol intake: never Substance/Drug Use: never Household members: spouse Marital status: Vitals/I&O/Wt Last Vital Signs Temp 97.5 F L 01/30/23 09:47 Pulse 76 01/30/23 15:00 Resp 18 01/30/23 16:09 BP 151/91 01/30/23 12:15 Pulse Ox 97 01/30/23 15:00 O2 Del Method Room Air 01/30/23 15:46 01/30/23 01/30/23 01/30/23 06:59 14:59 22:59 Intake Total 27.775 / 27.775 Balance 27.775 / 27.775 Weight last 48 hrs Weight 81.647 kg Physical Exam Const: COMMON NORMALS: alert Extremity: COMMON NORMALS: no pedal edema Neuro: SENSORIUM/ORIENTATION: Yes alert Data 01/30/23 10:16 01/30/23 10:16 Other Labs: Ca 7.9, alb 2.8, iraj Ca 9.3 Other data: seen and examined via telemedicine with assistance of RN at bedside A&P Assessment and plan (1) End-stage renal disease on peritoneal dialysis: Plan 1. ESRD on PD 2. NSTEMI 3. Hypertension 4. DM 5. Mild hyponatremia 6. Anemia Rec: continue PD. Gentamicin ointment to PD exit site. Consult Attestations Medical Necessity Statement: per primary service Time Spent in Patient Care: 16 - 35 minutes Coding Level of Care Code Acute Code for Chg Fwd Diagnoses End-stage renal disease on peritoneal dialysis N18.6; Z99.2
[2023-01-30] MEDS: atorvastatin 40 mg Tablet PO (18:15)
[2023-01-30] MEDS: methocarbamol 500 mg Tablet PO (18:15)
[2023-01-30] MEDS: hyDRALAzine 50 mg Tablet PO (18:15)
[2023-01-30] MEDS: pregabalin 150 mg Capsule PO (18:15)
[2023-01-30] MEDS: isosorbide mononitrate ER 60 mg Tablet PO (18:15)
[2023-01-30] MEDS: sertraline 50 mg Tablet 75 MG PO (18:16)
[2023-01-30] MEDS: heparin drip 25,000 UNIT/500 ML PREMIX 22 UNIT IV (18:49)
--- NOTE | 2023-01-30 19:06 | PM.CONSULT ---
Providers/Reason For Consult Consulting Physician/Specialty*: Lino Javier MD/ Cardiology Reason for Consult*: Chest pain Requesting Physician: Dr Woodard Attending Physician: Suleman Hemphill MD Primary Care Provider: Irene Jones History of Present Illness History of Present Illness Anshu Hurt is a 72 year old male with past medical history of diabetes, hypertension, end-stage renal disease, significant CAD with multiple PCI's in the past who had recent CABG at [facility] in [place] last month has presented with chest pain. According to patient his chest pain never resolved completely after the CABG. Today he is complaining of more significant pain that is on the right side of the chest. He also has left shoulder discomfort but that is associated with movement and laying on left side. His troponins are chronically elevated but did not show significant uptrend. EKG shows sinus rhythm with nonspecific ST-T wave changes. Review of Systems General: Reports: 10 or more systems reviewed and unremarkable except in HPI and below Const: Denies: fever(s), chills, body aches, change in appetite or diaphoresis Card: Reports: chest pain; Denies: palpitations, edema, swelling of feet/ankles, dyspnea on exertion, orthopnea or leg pain with exertion Resp: Denies: dyspnea, productive cough, wheezing or pain on inspiration GI: Denies: abdominal pain, nausea, vomiting, diarrhea or constipation : Denies: flank pain or difficulty urinating Musc: Denies: back pain, extremity pain or extremity swelling Neuro: Denies: headache(s), difficulty walking or confusion Medications/Allergies Home Medications Medication Instructions Recorded Confirmed Last Taken Type calcium acetate(phosphat bind) 667 See Rx Instructions .Route .COMPLEX 02/18/22 01/30/23 03/09/22 History mg capsule cholecalciferol (vitamin D3) 1,250 50,000 unit PO Q7D 02/18/22 01/30/23 01/27/23 History mcg (50,000 unit) capsule levothyroxine 150 mcg tablet 150 mcg PO QAM 02/18/22 01/30/23 01/30/23 History (Euthyrox) [id number] See Rx Instructions .Route .COMPLEX 02/18/22 01/30/23 01/30/23 History 12,000-38,000-60,000 unit capsule,delayed rel (Creon) pregabalin 150 mg capsule (Lyrica) 150 mg PO QPM 02/18/22 01/30/23 01/29/23 History sertraline 50 mg tablet 75 mg PO QPM 02/18/22 01/30/23 01/29/23 History nitroglycerin 0.4 mg sublingual 0.4 mg sublingual Q5M PRN Chest 04/15/22 01/30/23 Unknown Rx tablet (Nitrostat) Pain #25 tabs glycopyrrolate 9 mcg-formoterol 2 puff inhalation BID #10.7 grams 12/19/22 01/30/23 01/30/23 Rx 4.8 mcg HFA aerosol inhaler (Bevespi Aerosphere) albuterol sulfate 90 mcg/actuation 1 - 2 puff inhalation Q4H PRN 12/28/22 01/30/23 Unknown History aerosol inhaler Shortness Of Breath gentamicin 0.1 % topical cream See Rx Instructions .Route .COMPLEX 12/28/22 01/30/23 Unknown History naloxone 4 mg/actuation nasal spray See Rx Instructions .Route .COMPLEX 12/28/22 01/30/23 Unknown History ropinirole 0.5 mg tablet 0.5 mg PO BEDTIME 12/28/22 01/30/23 01/29/23 History vit B,C-folic ac 800 mcg-zinc 12.5 1 tab PO QAM 12/28/22 01/30/23 01/30/23 History mg-selen-D3 2,000 unit-vit E tablet (RenaPlex-D) zolpidem 10 mg tablet 10 mg PO BEDTIME 12/28/22 01/30/23 01/29/23 History aspirin 81 mg tablet,delayed 81 mg PO BEDTIME 30 days #30 tabs 12/29/22 01/30/23 01/29/23 Rx release atorvastatin 40 mg tablet 40 mg PO QPM 30 days #30 tabs 12/29/22 01/30/23 01/30/23 Rx insulin aspart U-100 100 unit/mL See Rx Instructions .Route 12/29/22 01/30/23 01/30/23 Rx (3 mL) subcutaneous pen (Novolog .COMPLEX #15 mL FlexPen U-100 Insulin aspart) insulin glargine 100 unit/mL (3 See Rx Instructions .Route 12/29/22 01/30/23 03/09/22 Rx mL) subcutaneous pen (Basaglar .COMPLEX #15 mL KwikPen U-100 Insulin) famotidine 20 mg tablet 20 mg PO DAILY 01/30/23 01/30/23 01/30/23 History isosorbide mononitrate 60 mg 60 mg PO DAILY 01/30/23 01/30/23 01/30/23 History tablet,extended release 24 hr methocarbamol 500 mg tablet 500 mg PO BID 01/30/23 01/30/23 01/30/23 History metoprolol succinate 25 mg 25 mg PO DAILY 01/30/23 01/30/23 01/30/23 History tablet,extended release 24 hr vancomycin 50 mg/mL oral solution 125 mg PO Q6H 01/30/23 01/30/23 01/30/23 History Allergies Allergy/AdvReac Type Severity Reaction Status Date / Time carbidopa [From Sinemet] Allergy Unknown Verified 01/30/23 11:11 levodopa [From Sinemet] Allergy Unknown Verified 01/30/23 11:11 Current Medications Generic Name Dose Route Start Last Admin Trade Name Freq PRN Reason Stop Dose Admin Acetaminophen 650 mg 01/30/23 15:41 01/30/23 16:44 Acetaminophen 325 Mg Tablet PO 650 mg Q6H PRN Administration Mild/Mod Pain Or Temp >/= 101 Atorvastatin Calcium 40 mg 01/30/23 18:00 01/30/23 18:15 Atorvastatin 40 Mg Tablet PO 40 mg QPM SHAMAR Administration Nitroglycerin/Dextrose 50 mg in 250 mls @ 0 mls/hr 01/30/23 11:45 01/30/23 18:54 Nitroglycerin Drip IV 55 mcg/min .Q0M SHAMAR 16.5 mls/hr Titration Protocol Per Protocol Heparin Sodium/Sodium Chloride 25,000 unit in 500 mls @ 0 mls/hr 01/30/23 17:30 01/30/23 18:49 Heparin Drip IV 13.47 unit/kg/hr .Q0M SHAMAR 22 mls/hr Administration Protocol Per Protocol Insulin Human Lispro 0 unit 01/30/23 18:00 01/30/23 18:17 Insulin Lispro 100 Unit/1 Ml SUBCUT Not Given TIDWM [facility] Protocol Methocarbamol 500 mg 01/30/23 18:00 01/30/23 18:15 Methocarbamol 500 Mg Tablet PO 500 mg BID SHAMAR Administration Pregabalin 150 mg 01/30/23 18:00 01/30/23 18:15 Pregabalin 150 Mg Capsule PO 150 mg QPM SHAMAR Administration Sertraline HCl 75 mg 01/30/23 18:00 01/30/23 18:16 Sertraline 50 Mg Tablet PO 75 mg QPM SHAMAR Administration Vancomycin HCl 125 mg 01/30/23 17:00 01/30/23 18:19 Vancomycin 1,000 Mg Oral Dorothy (Btl) PO Not Given QID SHAMAR PFSH Acute PFSH: Medical History Acute hypokalemia Bilateral wheezing Chest pain COPD exacerbation Coronary artery disease Depression Diabetes End stage renal disease ESRD (end stage renal disease) Essential tremor Gastroparesis Gout Hypercapnic respiratory failure Hyperlipidemia Hypertension Hypothyroidism (acquired) Lung entrapment Pancreatitis takes chronic pancrease Parkinsonian tremor Peritoneal dialysis catheter in place Pleural effusion Pneumonia Pneumonia Pulmonary nodule Stage 5 chronic kidney disease Tremor Vitiligo Weakness Surgical History History of appendectomy History of carpal tunnel release left wrist 1975 History of cholecystectomy Family History Other CAD (coronary artery disease) Cancer Diabetes Hypertension Denies family history of Stroke Social History Smoking and tobacco status: former smoker Quit status (tobacco): has quit using tobacco Year quit tobacco: 1993 Former quit date comment: 2 ppd X 20 years Alcohol intake: never Substance/Drug Use: never Household members: spouse Marital status: Vitals/I&O/Wt Last Vital Signs Temp 98.2 F 01/30/23 16:18 Pulse 84 01/30/23 16:18 Resp 29 H 01/30/23 16:18 BP 157/87 01/30/23 16:18 Pulse Ox 97 01/30/23 15:00 O2 Del Method Room Air 01/30/23 16:18 O2 Flow Rate 97 01/30/23 16:18 01/30/23 01/30/23 01/30/23 06:59 14:59 22:59 Intake Total 276.700 / 276.700 Balance 276.700 / 276.700 Weight last 48 hrs Weight 180 lb Physical Exam Narrative: GENERAL: Patient is alert, awake and oriented x3. [] NECK: No jugular vein distension. [] HEENT: No cyanosis. No icterus. No pallor. [] HEART: Regular S1 and S2. No murmur, rub or gallop. [] LUNGS: Clear to auscultate bilaterally. [] ABDOMEN: Soft CENTRAL NERVOUS SYSTEM: Grossly nonfocal. [] EXTREMITIES: Lower extremities with 1+ edema bilaterally. Pulses palpable in the lower extremities, both dorsalis pedis and posterior tibial. [] Data 01/31/23 00:32 01/31/23 00:32 A&P Assessment and plan (1) Chest pain: (2) Hyperlipidemia: Qualifiers: Hyperlipidemia type: unspecified Qualified Code(s): E78.5 - Hyperlipidemia, unspecified (3) Hypertension: Qualifiers: Hypertension type: essential hypertension Qualified Code(s): I10 - Essential (primary) hypertension (4) Atherosclerotic heart disease of [place] coronary artery with unstable angina pectoris: (5) End-stage renal disease on peritoneal dialysis: (6) Elevated troponin: Plan Patient's chest pain is atypical. It has been going on for several weeks but intensified day before admission to the hospital. His troponin elevation is chronic secondary to his end-stage renal disease. Continue heparin and aspirin. Pain medications as needed. Can consider CT scan of chest for alternative reasons for chest discomfort. We will recommend stress test to assess ischemia prior to coronary angiogram. We will check troponin level in the AM and coronary angiogram if shows a significant uptrend. Otherwise stress test on wednesday. Obtain records from [facility] for CABG. Thank you for involving us with care of this patient. We will continue to follow. please call with questions. Consult Attestations Medical Necessity Statement: Care expected to cross 2 midnights. Coding Level of Care Code Acute Code for [facility] Fwd Diagnoses Chest pain R07.9 Hyperlipidemia E78.5 Hyperlipidemia type: unspecified Hypertension I10 Hypertension type: essential hypertension Atherosclerotic heart disease of [place] coronary artery with unstable angina pectoris I25.110 End-stage renal disease on peritoneal dialysis N18.6; Z99.2 Elevated troponin R77.8
[2023-01-30] MEDS: morphine 4 mg/mL SDV 1 mL 2 MG IVP (19:32)
--- NOTE | 2023-01-30 20:00 | PC.NURSE ---
shift report pt received from ER. Nitro drip running at 20 mcg/min. Pt initial chest pain upon arrival rated at 4 per pain scale. nitro drip increased to 25 per protocol. pt has been having increased chest pain and elevated BP. notified hospitalist. received orders to start heparin drip w/o initial bolus, give 6 mg imdur and 50 mg hydralazine one time. Nitro drip titrated per protocol. Pt has a PD on left lower abdomen. clean and dry, no s/s of infection. at bedside. she will bring the PD supplies, per grain processor, okay to continue dialysate.
[2023-01-30] MEDS: ropinirole 1 mg Tablet 0.5 MG PO (21:04)
[2023-01-30] MEDS: zolpidem 5 mg Tablet 10 MG PO (21:05)
[2023-01-30] MEDS: aspirin 81 mg EC Tablet PO (21:05)
[2023-01-31] VITALS (109 sets, daily range): BP systolic 99–151; BP diastolic 63–86; PULSE 69–81; RESP 7–38; TEMP 36.5–36.9; O2SAT 89–98
[2023-01-31 00:38] LABS: Basophils % 0.5 %; Eosinophils # 0.5 10^3/uL (0.0-0.8); Eosinophils % 5.6 %; Hematocrit 26.3 % (42.0-52.0); Hemoglobin 8.4 g/dL (11.7-16.6); Lymphocytes # 1.4 10^3/uL (0.8-4.8); Lymphocytes % 16.6 %; Mean Corpuscular HGB Conc 31.9 g/dL (30.0-36.0); Mean Corpuscular Hemoglobin 29.3 pg (28.0-34.0); Mean Corpuscular Volume 91.6 fl (80-94); Mean Platelet Volume 9.4 fL (7.4-10.4); Monocytes # 0.9 10^3/uL (0.2-0.9); Monocytes % 10.9 %; Neutrophils # 5.66 10^3/uL (1.8-7.7); Nucleated Red Blood Cells % 0 %; Platelet Count 181 10^3/cmm (130-400); Red Blood Count 2.87 10^6/uL (4.1-5.3); Red Cell Distribution Width 17.2 % (12.1-15.1); White Blood Count 8.6 10^3/uL (4.0-10.0)
[2023-01-31 00:59] LABS: Anion Gap 18.8 (5-19); Blood Urea Nitrogen 37 mg/dL (8-23); Calcium 7.9 mg/dL (8.5-10.5); Carbon Dioxide 23 mmol/L (22-29); Chloride 94 mmol/L (98-107); Glomerular Filtration Rate 7.5 mL/min (90-130); Glucose 128 mg/dL (65-115); Magnesium 1.6 mg/dL (1.7-2.3); Osmolality Calculated 284 mOsm/kg (285-295); Potassium 3.8 mmol/L (3.5-5.1); Sodium 132 mmol/L (136-145)
[2023-01-31 01:01] LABS: Partial Thromboplastin Time 104.6 SECONDS (23.9-36.7)
[2023-01-31 01:10] LABS: Phosphorus 7.8 mg/dL (2.5-4.5)
[2023-01-31] MEDS: levothyroxine 150 mcg Tablet PO (05:03)
[2023-01-31 05:28] LABS: Troponin T (5th) Once 419 ng/L (0-15)
--- NOTE | 2023-01-31 06:23 | PM.PN ---
Subjective Subjective: chest pain better, not totally resolved at bedside - no issues with PD Vitals/I&O/Wt Last Vital Signs Temp 98.4 F 01/31/23 03:20 Pulse 72 01/31/23 05:11 Resp 18 01/31/23 03:20 BP 137/64 01/31/23 03:20 Pulse Ox 93 01/31/23 03:20 O2 Del Method Room Air 01/31/23 03:20 O2 Flow Rate 97 01/30/23 16:18 01/30/23 01/30/23 01/31/23 14:59 22:59 06:59 Intake Total 333.625 / 333.625 189.217 / 522.842 Output Total 0 / 0 0 / 0 Balance 333.625 / 333.625 189.217 / 522.842 Weight last 48 hrs Weight 79.861 kg Weight 79.39 kg Weight 81.647 kg Physical Exam Const: COMMON NORMALS: no acute distress and alert Extremity: COMMON NORMALS: no pedal edema Neuro: SENSORIUM/ORIENTATION: Yes alert Data 01/31/23 00:32 01/31/23 00:32 Other Labs: phos 7.8, Ca 7.7, albumin 2.8, Mg 1.6 Other data: seen via telemedicine with assistance of RN at bedside A&P Assessment and plan (1) End-stage renal disease on peritoneal dialysis: Plan 1. ESRD on PD 2. NSTEMI, on heparin gtt 3. Hypertension 4. DM 5. Mild hyponatremia, stable 6. Anemia, Hb lower. Heme test stool, check iron studies. SC epogen today 7. Hyperphosphatemia. Resume renvela 8. Poor nutrition. Add protein supplement Rec: continue current CCPD. Gentamicin ointment to PD exit site. Attestations Medical Necessity Statement*: per primary service Time Spent in Patient Care: 16 - 35 minutes Coding Level of Care Code Acute Code for [facility] Fwd Diagnoses End-stage renal disease on peritoneal dialysis N18.6; Z99.2
[2023-01-31 07:33] LABS: Partial Thromboplastin Time 83.7 SECONDS (23.9-36.7)
--- NOTE | 2023-01-31 08:05 | PC.NURSE ---
pt refused accu checks and used his dexcom to check his blood sugar result on his dexcom is 100 this morning at 06:20 am.
--- NOTE | 2023-01-31 08:19 | P.PN_ITS ---
Subjective Subjective: Patient complains of on and off chest discomfort. Improves with mmorphine. No significant uptrend of the troponins. Vitals/I&O/Wt Last Vital Signs Temp 98.1 F 01/31/23 08:00 Pulse 72 01/31/23 08:10 Resp 13 01/31/23 08:10 BP 139/75 01/31/23 08:10 Pulse Ox 94 01/31/23 08:10 O2 Del Method Room Air 01/31/23 03:20 O2 Flow Rate 97 01/30/23 16:18 01/30/23 01/31/23 01/31/23 22:59 06:59 14:59 Intake Total 333.625 / 333.625 189.217 / 522.842 146.533 / 146.533 Output Total 0 / 0 0 / 0 Balance 333.625 / 333.625 189.217 / 522.842 146.533 / 146.533 Weight last 48 hrs Weight 176 lb 1 oz Weight 175 lb 0.4 oz Weight 180 lb Physical Exam Narrative: GENERAL: Patient is alert, awake and oriented x3. [] NECK: No jugular vein distension. [] HEENT: No cyanosis. No icterus. No pallor. [] HEART: Regular S1 and S2. No murmur, rub or gallop. [] LUNGS: Clear to auscultate bilaterally. [] ABDOMEN: Soft CENTRAL NERVOUS SYSTEM: Grossly nonfocal. [] EXTREMITIES: Lower extremities with 1+ edema bilaterally. Pulses palpable in the lower extremities, both dorsalis pedis and posterior tibial. [] Data 02/01/23 03:10 02/01/23 03:10 A&P Assessment and plan (1) Chest pain: (2) Hyperlipidemia: Qualifiers: Hyperlipidemia type: unspecified Qualified Code(s): E78.5 - Hyp erlipidemia, unspecified (3) Hypertension: (4) Atherosclerotic heart disease of [place] coronary artery with unstable angina pectoris: (5) End-stage renal disease on peritoneal dialysis: (6) Elevated troponin: Plan Plan for stress test tomorrow. Has rib fractures on CT chest. Pain meds as needed per primary team. Continue aspirin. Obtain records from [facility] for CABG. Thank you for involving us with care of this patient. We will continue to follow. please call with questions. Attestations Medical Necessity Statement*: Care expected to cross 2 midnights. Coding Level of Care Code Acute Code for [facility] Fwd Diagnoses Chest pain R07.9 Hyperlipidemia E78.5 Hyperlipidemia type: unspecified Hypertension I10 Atherosclerotic heart disease of [place] coronary artery with unstable angina pectoris I25.110 End-stage renal disease on peritoneal dialysis N18.6; Z99.2 Elevated troponin R77.8
[2023-01-31] MEDS: morphine 4 mg/mL SDV 1 mL 2 MG IVP (09:02)
[2023-01-31] MEDS: methocarbamol 500 mg Tablet PO ×2 (09:02→18:03)
[2023-01-31] MEDS: famotidine 20 mg Tablet PO (09:03)
[2023-01-31] MEDS: isosorbide mononitrate ER 60 mg Tablet PO (09:03)
[2023-01-31] MEDS: metoprolol succinate ER (24 HR) 25 mg Tablet PO (09:03)
[2023-01-31] MEDS: sevelamer 800 mg Tablet 2400 MG PO ×2 (09:09→14:14)
[2023-01-31] MEDS: epoetin alfa 1000 Unit/0.05 mL (ESRD) 20000 UNIT SUBCUT (09:10)
--- NOTE | 2023-01-31 10:29 | CTR_ITS ---
PROCEDURE INFORMATION: Exam: CT Chest Without Contrast; Diagnostic Exam date and time: 01/31/2023 10:55 AM Age: 72 years old Clinical indication: Pain; Chest pressure; Additional info: Chest pain TECHNIQUE: Imaging protocol: Diagnostic computed tomography of the chest without contrast. Total images: 3 Radiation optimization: All CT scans at this facility use at least one of these dose optimization techniques: automated exposure control; mA and/or kV adjustment per patient size (includes targeted exams where dose is matched to clinical indication); or iterative reconstruction. REPORTING DATA: Count of CT and Cardiac NM exams in prior 12 months: This patient has received 8 known CTs and 0 known cardiac nuclear medicine studies in the 12 months prior to the current study. COMPARISON: CT chest wo con [id number] 02/18/2022 10:38 AM RADIATION DOSE METRICS: Total DLP (mGy-cm): 415.85 FINDINGS: Tubes, catheters and devices: Vagal nerve stimulator noted. Lungs: Benign granulomatous disease of the lung is noted. Compressive atelectasis of the lungs. Pleural spaces: Small bilateral pleural effusions are present. Heart: Mild cardiomegaly. Lymph nodes: Calcified mediastinal and hilar nodes noted. Vasculature: Severe atherosclerotic disease is evident. Dilated ascending thoracic aorta measured at 4.1 cm. Gallbladder and bile ducts: Gallbladder not visualized. Pancreas: Calcifications and atrophy of the pancreas are consistent with chronic pancreatitis. No evidence of acute pancreatitis. Spleen: Incidental splenic granulomata are noted. Kidneys and ureters: 10 mm Largest kidney stone which is nonobstructing and found in kidneys that have multiple non-obstructing kidney stones. Intraperitoneal space: There is a moderate amount of free intra-abdominal fluid. Bones/joints: Prior sternotomy and coronary artery bypass grafting. Left mildly comminuted 1st rib fracture. Questionable acute lateral left 2nd and 3rd rib fractures. Soft tissues: Unremarkable. CT/CT chest wo con [id number] IMPRESSION: 1. Prior sternotomy and coronary artery bypass grafting. 2. Left mildly comminuted 1st rib fracture. Questionable acute lateral left 2nd and 3rd rib fractures. 3. Dilated ascending thoracic aorta measured at 4.1 cm. 4. Small bilateral pleural effusions with compressive atelectasis. 5. Mild cardiomegaly. 6. There is a moderate amount of free intra-abdominal fluid.
--- NOTE | 2023-01-31 11:06 | PC.NURSE ---
to ct scan
--- NOTE | 2023-01-31 11:27 | PC.NURSE ---
Patients glucose was 128 per dexcom
[2023-01-31] MEDS: HYDROmorphone 1 mg/mL INJ 1 mL 0.5 MG IVP ×2 (13:33→19:12)
[2023-01-31] MEDS: nitroglycerin drip 50 MG/250 ML PREMIX 9 MG IV (13:44)
[2023-01-31] MEDS: acetaminophen 325 mg Tablet 650 MG PO (14:14)
[2023-01-31 14:26] LABS: Partial Thromboplastin Time 59.1 SECONDS (23.9-36.7)
--- NOTE | 2023-01-31 15:44 | PC.NURSE ---
pt stated chest pain is down to 1 right now. nitro drip titrated per protocol, BP-112/86
--- NOTE | 2023-01-31 16:39 | P.PN_ITS ---
Subjective Subjective: Patient was seen and examined this morning chest pain has improved with one time dose of morphine.Troponin trend has unremarkable delta. Medications: Medication Review Details: Generic Name Dose Route Start Last Admin Trade Name Lavinia PRN Reason Stop Dose Admin Acetaminophen 650 mg 01/30/23 15:41 01/31/23 14:14 Acetaminophen 32 5 Mg Tablet PO 650 mg Q6H PRN Administration Mild/Mod Pain Or Temp >/= 101 Aspirin 81 mg 01/30/23 21:00 01/30/23 21:05 Aspirin 81 Mg Ec Tablet PO 81 mg BEDTIME SHAMAR Administration Atorvastatin Calci um 40 mg 01/30/23 18:00 01/30/23 18:15 Atorvastatin 40 Mg Tablet PO 40 mg QPM SHAMAR Administration Famotidine 20 mg 01/31/23 09:00 01/31/23 09:03 Famotidine 20 Mg Tablet PO 20 mg DAILY SHAMAR Administration Gentamicin Sulfate 1 applic 01/31/23 09:00 01/31/23 09:11 Gentamicin 0.1% Cream 15 Gm TOPICAL Not Given DAILY [facility] Hydromorphone HCl 0.5 mg 01/31/23 10:29 01/31/23 13:33 Hydromorphone 1 Mg/Ml Inj 1 Ml IVP 0.5 mg Q6H PRN Administration MODERATE PAIN Nitroglycerin/Dext pillo 50 mg in 250 mls @ 0 mls/hr 01/30/23 11:45 01/31/23 16:[address] ip IV 20 mcg/min .Q0M SHAMAR 6 mls/hr Titration Protocol Per Protocol Heparin Sodium/Sod ium Chloride 25,000 unit in 50 0 mls @ 0 mls/hr 01/30/23 17:30 01/31/23 13:40 Heparin Drip IV 9.19 unit/kg/hr .Q0M SHAMAR 15 mls/hr Titration Protocol Per Protocol Insulin Human Lisp ro 0 unit 01/30/23 18:00 01/31/23 11:37 Insulin Lispro 1 00 Unit/1 Ml SUBCUT Not Given TIDWM [facility] Protocol Isosorbide Mononit rate 60 mg 01/31/23 09:00 01/31/23 09:03 Isosorbide Henniker itrate Er 60 Mg Ta blet PO 60 mg DAILY [facility] Administration Levothyroxine Sodi um 150 mcg 01/31/23 06:00 01/31/23 05:03 Levothyroxine 15 0 Mcg Tablet PO 150 mcg QAM SHAMAR Administration Methocarbamol 500 mg 01/30/23 18:00 01/31/23 09:02 Methocarbamol 50 0 Mg Tablet PO 500 mg BID SHAMAR Administration Metoprolol Succina te 25 mg 01/31/23 09:00 01/31/23 09:03 Metoprolol Succi salvador Er (24 Hr) 25 Mg Tablet PO 25 mg DAILY SHAMAR Administration Non-Formulary Medi cation 1 tab 01/31/23 06:00 01/31/23 05:04 Vit B,C-Fa-Zinc- Selen-Vit D3-E [Re naplex-D] PO Not Given QAM SHAMAR Pregabalin 150 mg 01/30/23 18:00 01/30/23 18:15 Pregabalin 150 M g Capsule PO 150 mg QPM SHAMAR Administration Ropinirole HCl 0.5 mg 01/30/23 21:00 01/30/23 21:04 Ropinirole 1 Mg Tablet PO 0.5 mg BEDTIME SHAMAR Administration Sertraline HCl 75 mg 01/30/23 18:00 01/30/23 18:16 Sertraline 50 Mg Tablet PO 75 mg QPM SHAMAR Administration Sevelamer Carbonat e 2,400 mg 01/31/23 09:00 01/31/23 14:14 Sevelamer 800 Mg Tablet PO 2,400 mg TID SHAMAR Administration Vancomycin HCl 125 mg 01/31/23 00:00 01/31/23 12:54 Vancomycin 1,000 Mg Oral Dorothy (Btl) PO 125 mg Q6H SHAMAR Administration Zolpidem Tartrate 10 mg 01/30/23 21:00 01/30/23 21:05 Zolpidem 5 Mg Ta blet PO 10 mg BEDTIME SHAMAR Administration Vitals/I&O/Wt Last Vital Signs Temp 98.3 F 01/31/23 12:05 Pulse 75 01/31/23 16:00 Resp 19 H 01/31/23 16:00 BP 146/86 01/31/23 16:00 Pulse Ox 94 01/31/23 16:00 O2 Del Method Room Air, Nasal Cannula 01/31/23 16:00 O2 Flow Rate 97 01/30/23 16:18 01/31/23 01/31/23 01/31/23 06:59 14:59 22:59 Intake Total 189.217 / 522.842 654.433 / 654.433 23.775 / 678.208 Output Total 0 / 0 Balance 189.217 / 522.842 654.433 / 654.433 23.775 / 678.208 Weight last 48 hrs Weight 79.861 kg Weight 79.39 kg Weight 81.647 kg Physical Exam Const: COMMON NORMALS: patient oriented x3 HENMT: COMMON NORMALS: normocephalic and atraumatic HEAD & SCALP: normocephalic and atraumatic Resp: COMMON NORMALS: clear to auscultation bilaterally EFFORT & INSPECTION: Yes symmetric chest movement AUSCULTATION: clear to auscultation bilaterally Cardio: COMMON NORMALS: regular rate, regular rhythm, S1 normal heart sound present, S2 normal heart sound present, No gallops present (Cardio), No murmurs present (Cardio), No rub (Cardio) and Peripheral pulses 2+ throughout RATE: regular rate RHYTHM: regular rhythm HEART SOUNDS: S1 normal heart sound present and S2 normal heart sound present PERIPHERAL PULSES: Peripheral pulses 2+ throughout GI: COMMON NORMALS: Normal to inspection, nondistended, normoactive bowel sounds present, Soft to palpation, non-tender, No hepatosplenomegaly present and no masses AUSCULTATION: Yes normoactive bowel sounds PALPATION: Yes Soft to palpation and Yes No hepatosplenomegaly present RECTAL EXAM: Yes deferred Extremity: COMMON NORMALS: no clubbing, cyanosis or edema and no pedal edema Neuro: COMMON NORMALS: patient oriented x3 Data 01/31/23 00:32 01/31/23 00:32 A&P Assessment and plan (1) Hyponatremia: (2) Hypertension: Qualifiers: Hypertension type: essential hypertension Qualified Code(s): I10 - Essential (primary) hypertension (3) NSTEMI (non-ST elevated myocardial infarction): (4) Atherosclerotic heart disease of [place] coronary artery with unstable angina pectoris: (5) End-stage renal disease on peritoneal dialysis: (6) Diabetes: Qualifiers: Diabetes mellitus type: type 2 Diabetes mellitus fpc insulin use: with terminal make up operator use Diabetes mellitus complication status: with kidney complications Diabetes mellitus complication detail: with chronic kidney disease Chronic kidney disease stage: on chronic dialysis Qualified Code(s): E11.22 - Type 2 diabetes mellitus with diabetic chronic kidney disease; N18.6 - End stage renal disease; 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; Z99.2 - Dependence on renal dialysis (7) Chest pain: Plan 2 year old male with PMH of HTN.DM, ESRD ON PD , CAD S/P recent PCI followed by CABG ON JANUARY 11, at [facility].F came in today with c/o central pressure like non radiating cheest pain that started since yesterday and since then is gradually getting worsened,he is not complaining of pain with breathing,sob, palpitation, diaphoresis, fever, cough, Assessment : NSTEMI xray chest: Right lower lobe pleural effusion, EKG has showed, S/R with TWI in inferior leads, troponin trend : [phone] C.T Chest without contrast results reviewed: Recent 2 D Echo reviewed Cureently on heparin drip as well as on aspirin, statin, beta catie, imdur Continue nitro drip Cardiology on Board NPO after midnight for nuclear stress test Hypertension : On imdur, received one dose of hydralazine CAD S/P CABG/PCI: DM2: SSI, Monitor FSG Hypothyroidism : Continue levothyroxine ESRD on PD: Continue with P/D Nephrology on board Recent h/o CDI: On day 8 of po vancomycin to complete total 10 day course Code status : Full Code DVT PPX Heparin drip will be good. Attestations Medical Necessity Statement*: In hospital for chest pain and stress test. Coding Level of Care Code Acute Code for [facility] Fwd Diagnoses Hyponatremia E87.1 Hypertension I10 Hypertension type: essential hypertension NSTEMI (non-ST elevated myocardial infarction) I21.4 Atherosclerotic heart disease of [place] coronary artery with unstable angina pectoris I25.110 End-stage renal disease on peritoneal dialysis N18.6; Z99.2 Diabetes E11.22; N18.6; Z79.4; Z99.2 Diabetes mellitus type: type 2 Diabetes mellitus fpc insulin use: with terminal make up operator use Diabetes mellitus complication status: with kidney complications Diabetes mellitus complication detail: with chronic kidney disease Chronic kidney disease stage: on chronic dialysis Chest pain R07.9
--- NOTE | 2023-01-31 16:52 | ECG_ITS ---
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 Measurements Intervals [place] Rate: 75 P: 56 SC: 223 QRS: -18 QRSD: 86 T: 183 QT: 395 QTc: 442 Interpretive Statements SINUS RHYTHM WITH FIRST DEGREE AV BLOCK MODERATE T-WAVE ABNORMALITY, CONSIDER LATERAL ISCHEMIA [-0.1+ mV T-WAVE IN I/aVL/V5/V6] Compared to ECG 01/30/2023 16:14:16 Possible ischemia now present T-wave abnormality still present Electronically Signed On 01-31-2023 17:30:39 CDT by Lino Jvaier M.D. [id number]
[2023-01-31] MEDS: atorvastatin 40 mg Tablet PO (18:03)
[2023-01-31] MEDS: pregabalin 150 mg Capsule PO (18:03)
[2023-01-31] MEDS: sertraline 50 mg Tablet 75 MG PO (18:03)
--- NOTE | 2023-01-31 18:06 | PC.NURSE ---
Patients 5pm Blood glucose was 139. BG was checked on the patients dexcom.
[2023-01-31 19:03] LABS: Partial Thromboplastin Time 51.3 SECONDS (23.9-36.7)
[2023-01-31] MEDS: heparin 5,000 unit/mL INJ 1 mL IV (19:10)
--- NOTE | 2023-01-31 20:13 | PC.NURSE ---
1621 pt had an run of vtach HR-110s pt was asleep and woke up from nurse checking on him. BP-148/75. pt stated his chest pain is up to 5, describe as dull pain in mid chest. Notified Dr Javier on his arrhythmia. EKG taken. will keep monitoring.
[2023-01-31] MEDS: ropinirole 1 mg Tablet 0.5 MG PO (20:17)
[2023-01-31] MEDS: aspirin 81 mg EC Tablet PO (20:17)
[2023-01-31] MEDS: zolpidem 5 mg Tablet 10 MG PO (20:17)
--- NOTE | 2023-01-31 20:59 | PC.NURSE ---
Patients 2100 Blood Glucose is 128. Patient has a Dexcom Sensor. This was verbally recieved from patients .
[2023-01-31] MEDS: heparin drip 25,000 UNIT/500 ML PREMIX 17 UNIT IV (23:10)
[2023-02-01 01:13] LABS: Partial Thromboplastin Time 73.2 SECONDS (23.9-36.7)
[2023-02-01 04:00] VITALS: BP 119/50; PULSE 76; RESP 14; TEMP 36.7; O2SAT 92
[2023-02-01 04:08] LABS: Basophils % 0.3 %; Eosinophils # 0.3 10^3/uL (0.0-0.8); Eosinophils % 3.5 %; Hematocrit 29.2 % (42.0-52.0); Hemoglobin 9.2 g/dL (11.7-16.6); Lymphocytes # 1.2 10^3/uL (0.8-4.8); Lymphocytes % 12.7 %; Mean Corpuscular HGB Conc 31.5 g/dL (30.0-36.0); Mean Corpuscular Hemoglobin 29.1 pg (28.0-34.0); Mean Corpuscular Volume 92.4 fl (80-94); Mean Platelet Volume 9.8 fL (7.4-10.4); Monocytes % 10.6 %; Neutrophils # 6.52 10^3/uL (1.8-7.7); Neutrophils % 72.5 %; Nucleated Red Blood Cells % 0 %; Platelet Count 176 10^3/cmm (130-400); Red Blood Count 3.16 10^6/uL (4.1-5.3); Red Cell Distribution Width 17.2 % (12.1-15.1)
[2023-02-01 04:24] LABS: Anion Gap 18.9 (5-19); Blood Urea Nitrogen 35 mg/dL (8-23); Calcium 7.8 mg/dL (8.5-10.5); Carbon Dioxide 24 mmol/L (22-29); Chloride 91 mmol/L (98-107); Glomerular Filtration Rate 7.5 mL/min (90-130); Glucose 139 mg/dL (65-115); Osmolality Calculated 280 mOsm/kg (285-295); Potassium 3.9 mmol/L (3.5-5.1); Sodium 130 mmol/L (136-145)
[2023-02-01] MEDS: levothyroxine 150 mcg Tablet PO (05:10)
[2023-02-01 05:48] VITALS: PULSE 81
--- NOTE | 2023-02-01 06:00 | NMCV_ITS ---
NM to perf SPECT r/s* [id number] Anshu Hurt Age: 72 Gender: M : 1950 Exam Date: 02/01/2023 09:53 Ordering Phys: Suleman Hemphill MD Technologist: NATY Dawson Exam Location: [facility] Indications: CHEST PAIN STRESS TEST Please see separate stress test report in [facility] for full findings IMAGE PROTOCOL Rest/Stress 1 Lexiscan Day Radiopharmaceutical Dose (mCi) Administration Site Administered by Rest: Tc-99m 10.7 IV NATY Larkin Sestamibi Stress:Tc-99m 32.7 IV NATY Larkin Sestamibi Rest: 01-Feb-2023 60 Discovery 630 Stress: 01-Feb-2023 30 Discovery 630 0.4mg Lexiscan. Supine position only as patient was unable to lay prone. SPECT RESULTS Technical Quality: Excellent Raw Data Analysis: Normal Image Corrections: No attenuation or motion correction applied Summed Stress Score: 0 Summed Rest Score: 1 Summed Difference Score: 0 PERFUSION FINDINGS There is homogenous radiotracer uptake throughout the myocardium. No evidence of ischemia FUNCTIONAL RESULTS (calculated via Gated SPECT) Stress Image LV EF (%): 36 Stress EDV (mL):155 TID: 0.93 Stress ESV (mL):99 FUNCTIONAL FINDINGS: LV systolic function is moderately reduced with moderate global hypokinesis. IMPRESSIONS 1. Normal myocardial perfusion imaging with no evidence of ischemia. 2. LV systolic function is moderately reduced with moderate global hypokinesis. EF is 36%. Lino Javier MD (Electronically Signed) Final Date: 01 February 2023 12:11 S
--- NOTE | 2023-02-01 06:03 | PC.NURSE ---
Patient Blood Glucose at 0600 is 157. Per his Dexcom sensor.
--- NOTE | 2023-02-01 06:50 | P.PN_ITS ---
Subjective Subjective: Patient is feeling better. Stress test was done that did not reveal any significant ischemia. Vitals/I&O/Wt Last Vital Signs Temp 98.0 F 02/01/23 04:00 Pulse 81 02/01/23 05:48 Resp 14 02/01/23 04:00 BP 119/50 02/01/23 04:00 Pulse Ox 92 02/01/23 04:00 O2 Del Method Room Air 02/01/23 04:00 O2 Flow Rate 97 01/30/23 16:18 01/31/23 01/31/23 02/01/23 14:59 22:59 06:59 Intake Total 654.433 / 654.433 832.175 / 1486.608 67.433 / 1554.041 Balance 654.433 / 654.433 832.175 / 1486.608 67.433 / 1554.041 Weight last 48 hrs Weight 177 lb 3.2 oz Weight 176 lb 1 oz Weight 175 lb 0.4 oz Weight 180 lb Physical Exam Narrative: GENERAL: Patient is alert, awake and oriented x3. [] NECK: No jugular vein distension. [] HEENT: No cyanosis. No icterus. No pallor. [] HEART: Regular S1 and S2. No murmur, rub or gallop. [] LUNGS: Clear to auscultate bilaterally. [] ABDOMEN: Soft CENTRAL NERVOUS SYSTEM: Grossly nonfocal. [] EXTREMITIES: Lower extremities with 1+ edema bilaterally. Pulses palpable in the lower extremities, both dorsalis pedis and posterior tibial. [] Data 02/01/23 03:10 02/01/23 03:10 Micro: Microbiology 01/31/23 Unknown Occult Blood (FIT) - Final Stool A&P Assessment and plan (1) Chest pain: (2) Hyperlipidemia: Qualifiers: Hyperlipidemia type: unspecified Qualified Code(s): E78.5 - Hyperlipidemia, unspecified (3) Hypertension: (4) Atherosclerotic heart disease of [place] coronary artery with unstable angina pectoris: (5) End-stage renal disease on peritoneal dialysis: (6) Elevated troponin: Plan Stress test not showing significant ischemia. Aggressive medical therapy. Chest pain is atypical. Thank you for involving us with care of this patient. We will continue to follow. please call with questions. Attestations Medical Necessity Statement*: Care expected to cross 2 midnights. Coding Level of Care Code Acute Code for Chg Fwd Diagnoses Chest pain R07.9 Hyperlipidemia E78.5 Hyperlipidemia type: unspecified Hypertension I10 Atherosclerotic heart disease of [place] coronary artery with unstable angina pectoris I25.110 End-stage renal disease on peritoneal dialysis N18.6; Z99.2 Elevated troponin R77.8
[2023-02-01 08:00] VITALS: BP 124/70; PULSE 70; RESP 19; O2SAT 93
[2023-02-01 08:02] LABS: Partial Thromboplastin Time 69.5 SECONDS (23.9-36.7)
[2023-02-01 08:57] LABS: Iron 53 ug/dL (59-158); Total Iron Binding Capacity 147 mcg/dl; Unsaturated Iron Binding 94 ug/dL (112-347)
[2023-02-01 09:13] LABS: Ferritin 1632 ng/mL (30-400)
[2023-02-01] MEDS: famotidine 20 mg Tablet PO (09:28)
[2023-02-01] MEDS: methocarbamol 500 mg Tablet PO (09:28)
[2023-02-01] MEDS: metoprolol succinate ER (24 HR) 25 mg Tablet PO (09:28)
[2023-02-01] MEDS: isosorbide mononitrate ER 60 mg Tablet PO (09:28)
[2023-02-01] MEDS: sevelamer 800 mg Tablet 2400 MG PO (09:28)
[2023-02-01] MEDS: regadenoson 0.4 Mg/5 ml Syringe IVP (10:50)
[2023-02-01 10:54] VITALS: BP 185/77; PULSE 75
[2023-02-01 11:44] VITALS: BP 119/77; PULSE 79; RESP 21; O2SAT 93
--- NOTE | 2023-02-01 12:29 | PM.PN ---
Subjective Subjective: Stress test is not showing active ischemia however EF is significantly reduced Patient is getting dialysis, nephro on board Appreciate cardiology recommendations Vitals/I&O/Wt Last Vital Signs Temp 98.0 F 02/01/23 04:00 Pulse 79 02/01/23 11:44 Resp 21 H 02/01/23 11:44 BP 119/77 02/01/23 11:44 Pulse Ox 93 02/01/23 11:44 O2 Del Method Room Air 02/01/23 11:44 O2 Flow Rate 97 01/30/23 16:18 01/31/23 02/01/23 02/01/23 22:59 06:59 14:59 Intake Total 832.175 / 1486.608 67.433 / 1554.041 Balance 832.175 / 1486.608 67.433 / 1554.041 Weight last 48 hrs Weight 80.377 kg Weight 79.861 kg Weight 79.39 kg Physical Exam Narrative: Awake and alert GCS 15 Abdomen soft Currently on room air Nonfocal neuro exam Hemodynamically stable Pleasant and cooperative Appears stated age Data 02/01/23 03:10 02/01/23 03:10 Micro: Microbiology 01/31/23 Unknown Occult Blood (FIT) - Final Stool A&P Assessment and plan (1) Chest pain: (2) Diabetes: (3) Hyponatremia: (4) Hypertension: (5) Chronic hypercapnic respiratory failure: (6) Pleural effusion: (7) Adult failure to thrive: (8) Ulnar neuropathy of both upper extremities: (9) Parkinson disease: (10) Acute anemia: Plan Chest pain Recent CABG Stress test not showing active ischemia Severely reduced EF LifeVest will be needed No active symptoms Dialysis dependent patient Nephro on board Requested D-dimer to rule out PE Full code Cardiac diet Hemodynamically stable Coding Level of Care Code Acute Code for Chg Fwd Diagnoses Chest pain R07.9 Diabetes E11.9 Hyponatremia E87.1 Hypertension I10 Chronic hypercapnic respiratory failure J96.12 Pleural effusion J90 Adult failure to thrive R62.7 Ulnar neuropathy of both upper extremities G56.23 Parkinson disease G20 Acute anemia D64.9
--- NOTE | 2023-02-01 12:48 | P.DS_ITS ---
Discharge Providers Date of Admission: 01/30/23 14:43 Date of Discharge: February 01, 2023 Attending Provider at Admission: Suleman Hemphill MD Attending Provider at Discharge: Rashi Last MD Primary Care Provider: Irene Jones Diagnoses at Discharge Discharge Diagnosis (1) Chest pain: Status: Acute (2) Diabetes: Status: Acute (3) Hyponatremia: Status: Acute (4) Hypertension: Status: Acute (5) Chronic hypercapnic respiratory failure: Status: Acute (6) Pleural effusion: Status: Acute (7) Adult failure to thrive: Status: Acute (8) Ulnar neuropathy of both upper extremities: Status: Chronic (9) Parkinson disease: Status: Acute (10) Acute anemia: Status: Acute Reason for Visit Reason for Visit: chest pain, diarrhea Hospital Course Hospital Course 72 male who recently had CABG done January 11 at [facility], patient came in for chest pressure nonradiating he also has rib fracture evident on his lung imaging, right lower lobe pleural effusion, he remained afebrile doing well on room air, stress test was requested which came back normal no signs of ischemia at this point, cardiology recommended addition of Imdur and opioids at this point, nephro was consulted to continue dialysis throughout hospitalization he will be discharged with stable hemodynamics EF is moderately reduced, follow-up with cardiology outpatient EF read on stress test is not accurate we will rely on the echo report Physical Exam Narrative: S1, S2 Currently on room air GCS 15 Abdomen soft Nonfocal neuro exam Hemodynamically stable Discharge Data Studies Completed and Pending Completed Studies During Hospitalization Category Date Time Status CT chest wo con [id number] Stat Cat Scan 01/31/23 10:29 Completed Cardiac Stress Test MIBI [Sestamibi Stress Test Request Exams 02/01/23 16:29 Draft ] Routine XR chest 1V portable [id number] Stat Exams 01/30/23 10:26 Completed NM to perf SPECT r/s* [id number] Routine Nuc Med 02/01/23 06:00 Completed Pending at discharge Category Date Time Status Cardiac Stress Test MIBI [Sestamibi Stress Test Request Exams 01/30/23 16:29 Stop Req ] Routine Basic Metabolic Panel AM LABS Lab 02/02/23 04:00 Ordered Basic Metabolic Panel AM LABS Lab 02/02/23 04:00 Ordered Complete Blood Count w/Auto AM LABS Lab 02/02/23 04:00 Ordered Complete Blood Count w/Auto AM LABS Lab 02/02/23 04:00 Ordered D Dimer Stat Lab 02/01/23 12:33 Ordered Platelet Count Q2D Lab 02/03/23 04:00 Ordered Radiology Impressions Chest X-Ray 01/30/23 10:26 IMPRESSION: 1. Right lower lobe pleural effusion 2. Right lower lobe atelectasis 3. Metallic sternotomy wires are present 4. Electronic stimulator right chest leads extending to the skull Chest CT 01/31/23 10:29 IMPRESSION: 1. Prior sternotomy and coronary artery bypass grafting. 2. Left mildly comminuted 1st rib fracture. Questionable acute lateral left 2nd and 3rd rib fractures. 3. Dilated ascending thoracic aorta measured at 4.1 cm. 4. Small bilateral pleural effusions with compressive atelectasis. 5. Mild cardiomegaly. 6. There is a moderate amount of free intra-abdominal fluid. Laboratory Results WBC 9.0 10^3/uL (4.0-10.0) 02/01/23 03:10 RBC 3.16 10^6/uL (4.1-5.3) L 02/01/23 03:10 Hgb 9.2 g/dL (11.7-16.6) L 02/01/23 03:10 Hct 29.2 % (42.0-52.0) L 02/01/23 03:10 MCV 92.4 fl (80-94) 02/01/23 03:10 MCH 29.1 pg (28.0-34.0) 02/01/23 03:10 MCHC 31.5 g/dL (30.0-36.0) 02/01/23 03:10 RDW 17.2 % (12.1-15.1) H 02/01/23 03:10 Plt Count 176 10^3/cmm (130-400) 02/01/23 03:10 MPV 9.8 fL (7.4-10.4) 02/01/23 03:10 Neut % (Auto) 72.5 % 02/01/23 03:10 Lymph % (Auto) 12.7 % 02/01/23 03:10 Camp % (Auto) 10.6 % 02/01/23 03:10 Eos % (Auto) 3.5 % 02/01/23 03:10 Baso % (Auto) 0.3 % 02/01/23 03:10 Neut # (Auto) 6.52 10^3/uL (1.8-7.7) 02/01/23 03:10 Lymph # (Auto) 1.2 10^3/uL (0.8-4.8) 02/01/23 03:10 Camp # (Auto) 1.0 10^3/uL (0.2-0.9) H 02/01/23 03:10 Eos # (Auto) 0.3 10^3/uL (0.0-0.8) 02/01/23 03:10 Baso # (Auto) 0.0 10^3/uL (0.0-0.1) 02/01/23 03:10 Nucleated RBC % (auto) 0 % 02/01/23 03:10 Nucleated RBCs # 0.0 /100WBC 02/01/23 03:10 APTT 69.5 SECONDS (23.9-36.7) H 02/01/23 07:26 Sodium 130 mmol/L (136-145) L 02/01/23 03:10 Potassium 3.9 mmol/L (3.5-5.1) 02/01/23 03:10 Chloride 91 mmol/L (98-107) L 02/01/23 03:10 Carbon Dioxide 24 mmol/L (22-29) 02/01/23 03:10 Anion Gap 18.9 (5-19) 02/01/23 03:10 BUN 35 mg/dL (8-23) H 02/01/23 03:10 Creatinine 7.3 mg/dL (0.7-1.2) H* 02/01/23 03:10 GFR Calculation 7.5 mL/min (90-130) L 02/01/23 03:10 Glucose 139 mg/dL (65-115) H 02/01/23 03:10 Calculated Osmolality 280 mOsm/kg (285-295) L 02/01/23 03:10 Calcium 7.8 mg/dL (8.5-10.5) L 02/01/23 03:10 Phosphorus 7.8 mg/dL (2.5-4.5) H* 01/31/23 00:32 Magnesium 1.6 mg/dL (1.7-2.3) L 01/31/23 00:32 Iron 53 ug/dL (59-158) L 02/01/23 03:10 TIBC 147 mcg/dl 02/01/23 03:10 % Saturation 36.0 % (20-50) 02/01/23 03:10 Unsat Iron Binding 94 ug/dL (112-347) L 02/01/23 03:10 Ferritin 1632 ng/mL (30-400) H 02/01/23 03:10 Total Bilirubin 0.3 mg/dL (0.15-1.2) 01/30/23 10:16 AST 24 U/L (0-40) 01/30/23 10:16 ALT 9 U/L (0-41) 01/30/23 10:16 Alkaline Phosphatase 146 U/L (40-130) H 01/30/23 10:16 Troponin T Gen 5 ng/L 419 ng/L (0-15) H* 01/31/23 04:37 Troponin T Baseline 454 ng/L (0-15) H* 01/30/23 10:16 Troponin T 120 Minute 445.6 ng/L (0-15) H 01/30/23 12:26 Delta Troponin T -8.4 ABS# (0-10) L 01/30/23 12:26 Troponin T Hi Sens 6Hr 460.7 ng/L (0-15) H 01/30/23 16:07 Troponin T Hi Sens 6Hr Delta 6.7 ng/L (0-12) 01/30/23 16:07 Total Protein 5.2 g/dL (6.6-8.7) L 01/30/23 10:16 Albumin 2.8 g/dL (3.5-5.2) L 01/30/23 10:16 Globulin 2.4 g/dL (1.3-4.6) 01/30/23 10:16 Vitals Last Vital Signs Temp 98.0 F 02/01/23 04:00 Pulse 79 02/01/23 11:44 Resp 21 H 02/01/23 11:44 BP 119/77 02/01/23 11:44 Pulse Ox 93 02/01/23 11:44 O2 Del Method Room Air 02/01/23 11:44 O2 Flow Rate 97 01/30/23 16:18 Discharge Plan Discharge Patient Disposition: Home Condition: Stable Prescriptions: New oxycodone-acetaminophen 5-325 mg tablet 1 tab PO Q8H PRN (Reason: pain) Qty: 14 0RF isosorbide mononitrate 120 mg tablet extended release 24 hr 120 mg PO DAILY Qty: 60 0RF Continued nitroglycerin [Nitrostat] 0.4 mg tablet, sublingual 0.4 mg SUBLINGUAL Q5M PRN (Reason: Chest Pain) Qty: 25 2RF Rx Instructions: do not exceed 3 doses per episode Bevespi Aerosphere 9-4.8 mcg HFA aerosol inhaler 2 puff inhalation BID Qty: 10.7 3RF Creon 12,000-38,000 -60,000 unit Capsule,Delayed Release(Dr/Ec) See Rx Instructions .ROUTE .COMPLEX Rx Instructions: 5 cap po with meals and 2-3 caps with snacks. levothyroxine [Euthyrox] 150 mcg Tablet 150 mcg PO QAM Rx Instructions: Take on an empty stomach sertraline 50 mg Tablet 75 mg PO QPM pregabalin [Lyrica] 150 mg Capsule 150 mg PO QPM calcium acetate(phosphat bind) 667 mg capsule See Rx Instructions .ROUTE .COMPLEX Rx Instructions: Take 4 caps PO with meals and 2 caps with snacks. (Do not exceed 16 caps per day). cholecalciferol (vitamin D3) 1,250 mcg (50,000 unit) capsule 50,000 unit PO Q7D Rx Instructions: on wed methocarbamol 500 mg Tablet 500 mg PO BID vancomycin 50 mg/mL Recon Soln 125 mg PO Q6H famotidine 20 mg tablet 20 mg PO DAILY metoprolol succinate 25 mg tablet extended release 24 hr 25 mg PO DAILY albuterol sulfate 90 mcg/actuation HFA aerosol inhaler 1 - 2 puff INHALATION Q4H PRN (Reason: Shortness Of Breath) ropinirole 0.5 mg tablet 0.5 mg PO BEDTIME zolpidem 10 mg tablet 10 mg PO BEDTIME RenaPlex-D 800 mcg-12.5 mg -2,000 unit tablet 1 tab PO QAM gentamicin 0.1 % cream See Rx Instructions .ROUTE .COMPLEX Rx Instructions: APPLY TO EXIT SITE ONCE A DAY naloxone 4 mg/actuation spray,non-aerosol See Rx Instructions .ROUTE .COMPLEX Rx Instructions: ADMINISTER A SINGLE SPRAY IN ONE NOSTRIL UPON SIGNS OF OPIOID OVERDOSE. CALL 911. REPEAT AFTER 3 MINUTES IF NO RESPONSE. atorvastatin 40 mg tablet 40 mg PO QPM 30 Days Qty: 30 3RF aspirin 81 mg Tablet,Delayed Release (Dr/Ec) 81 mg PO BEDTIME 30 Days Qty: 30 0RF insulin aspart U-100 [Novolog FlexPen U-100 Insulin] 100 unit/mL (3 mL) insulin pen See Rx Instructions .ROUTE .COMPLEX Qty: 15 0RF Rx Instructions: sliding scale tid insulin glargine [Basaglar KwikPen U-100 Insulin] 100 unit/mL (3 mL) Insulin Pen See Rx Instructions .ROUTE .COMPLEX Qty: 15 0RF Rx Instructions: 10 units according to bag used for dialysis Discontinued isosorbide mononitrate 60 mg tablet extended release 24 hr 60 mg PO DAILY Discharge Orders: Discharge Order (Routine); Ordered 02/01/23 Ordered By: Rashi Last Referrals: Kiran Reardon MD [Primary Care Provider] - Patient Instructions: Opioid Safety Discharge Attestations Time Spent in Discharge Care*: greater than 30 min Quality Metrics Clinical Quality Measures [ No reported AMI, CVA or VTE this stay] Coding Level of Care Code Acute Code for Chg Fwd Diagnoses Chest pain R07.9 Diabetes E11.9 Hyponatremia E87.1 Hypertension I10 Chronic hypercapnic respiratory failure J96.12 Pleural effusion J90 Adult failure to thrive R62.7 Ulnar neuropathy of both upper extremities G56.23 Parkinson disease G20 Acute anemia D64.9
[2023-02-01 13:19] VITALS: BP 135/88; PULSE 81; RESP 16; O2SAT 97
[2023-02-01 14:14] LABS: D Dimer 5.11 ug/mIFEU (0-0.59)
--- NOTE | 2023-02-01 16:29 | ECG_ITS ---
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 Interpretive Statements NAME OF STUDY: LEXISCAN SESTAMIBI STRESS TEST INDICATION: [Chest Pain, ] Procedure: At the baseline, the blood pressure was 162/108 mmHg with a heart rate of 72 bpm. The electrocardiogram showed normal sinus rhythm, normal axis with normal ST and T's. The Lexiscan was infused over a period of 20 seconds. A total of 0.4 mg of Lexiscan was infused. The stress phase was continued for a total of 5 minutes. Heart rate was at the end of stress phase was 75 bpm and a blood pressure of 176/77 mmHg. The EKG at the peak infusion revealed normal sinus rhythm with no significant ST-T wave changes. Sestamibi was injected 20 seconds after the Lexiscan infusion. Blood pressure at the end of recovery phase was 185/77 mmHg with a heart rate of 76 bpm. Conclusion: 1. Normal EKG response to Lexiscan infusion 2. No Lexiscan induced chest pain or cardiac arrhythmia. 3. Normal blood pressure and heart rate response. 4. Sestamibi/sestamibi perfusion scan pending; see separate report. Electronically Signed On 02-06-2023 14:50:22 CDT by Lino Javier M.D. [id number]
== END 2023-02-01 02:40 | disposition home or self-care (01) | DRG 313 ==
LOC: ER 12:08 → CSU 14:53
PROVIDERS: Internal Medicine; Admitting Provider Internal Medicine; Emergency Provider Family Medicine; PCP Family Medicine; Visit Provider Internal Medicine
DX: R07.89 Other chest pain (principal); N18.6 End stage renal disease; I25.110 Atherosclerotic heart disease of native coronary artery with unstable angina pectoris; I12.0 Hypertensive chronic kidney disease with stage 5 chronic kidney disease or end stage renal disease; J96.12 Chronic respiratory failure with hypercapnia; E87.1 Hypo-osmolality and hyponatremia; J90 Pleural effusion, not elsewhere classified; Z95.1 Presence of aortocoronary bypass graft; Z95.5 Presence of coronary angioplasty implant and graft; F32.A Depression, unspecified; E11.22 Type 2 diabetes mellitus with diabetic chronic kidney disease; Z99.2 Dependence on renal dialysis; Z87.891 Personal history of nicotine dependence; Z79.4 Long term (current) use of insulin; M10.9 Gout, unspecified; E78.5 Hyperlipidemia, unspecified; E03.9 Hypothyroidism, unspecified; G20 Parkinson's disease; Z79.82 Long term (current) use of aspirin; R62.7 Adult failure to thrive; G56.23 Lesion of ulnar nerve, bilateral upper limbs; D63.1 Anemia in chronic kidney disease; E83.39 Other disorders of phosphorus metabolism; R77.8 Other specified abnormalities of plasma proteins
CPT/HCPCS: 36415; 71045; 71250; 78452; 80048; 80053; 82274; 82728; 83540; 83550; 83735; 84100; 84484; 85025; 85378; 85730; 93005; 93017; 96365; 96366; 96372; 96375; 99285; A9500; J1170; J1644; J2270; J2785; J3370; J3490; Q3014; Q4081

== ENCOUNTER 2023-02-12 10:58 | Emergency (ER) | payer MEDICARE, OTHER, SELFPAY ==
--- NOTE | 2023-02-12 11:06 | ECG_ITS ---
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 Measurements Intervals [place] Rate: 75 P: -3 AK: 168 QRS: -23 QRSD: 91 T: 217 QT: 424 QTc: 477 Interpretive Statements SINUS RHYTHM WITH OCCASIONAL VENTRICULAR PREMATURE COMPLEXES SEPTAL MYOCARDIAL INFARCTION , PROBABLY OLD [40+ ms Q WAVE IN V1/V2] MODERATE T-WAVE ABNORMALITY, CONSIDER INFERIOR ISCHEMIA [-0.1+ mV T-WAVE IN II/aVF] Compared to ECG 01/31/2023 17:15:43 Ventricular premature complex(es) now present Myocardial infarct finding now present First degree AV block no longer present T-wave abnormality still present Possible ischemia still present Electronically Signed On 02-12-2023 16:14:44 CDT by Lino Javier M.D. [id number]
--- NOTE | 2023-02-12 11:14 | ED_ITS ---
HPI - General Adult General: Chief complaint: Shortness of Breath/Dyspnea Stated complaint: Hellen sent Time Seen by Provider: 02/12/23 11:08 History of Present Illness: Per the patient Dr. Macedo cardiology sent him over here to for evaluation and treatment of fluid in his lungs. Patient been getting worse shortening of breath over the last 24 hours and pain when he lays on his right side. Patient was just discharged from [facility] in [place] for three-vessel bypass. Prior to that he had [address] King. Patient did say he had to have fluid drawn off his lungs twice in the last 1 year. Once approximately 1 year ago and once right before the cardiac bypass. Review of Systems General: Reports: 10 or more systems reviewed and unremarkable except in HPI and below PFSH ED PFSH: Medical History (Updated 02/12/23 @ 12:41 by Nadir Zarate DO) Acute hypokalemia Bilateral wheezing Chest pain COPD exacerbation Coronary artery disease Coronary artery disease due to type 2 diabetes mellitus Depression Diabetes End stage renal disease ESRD (end stage renal disease) Essential tremor Gastroparesis Gout Hypercapnic respiratory failure Hyperlipidemia Hypertension Hypothyroidism (acquired) Lung entrapment Pancreatitis takes chronic pancrease Parkinsonian tremor Peritoneal dialysis catheter in place Pleural effusion Pneumonia Pneumonia Pulmonary nodule SOB (shortness of breath) Stage 5 chronic kidney disease Tremor Vitiligo Weakness Surgical History (Updated 02/12/23 @ 12:03 by Oleg Macedo MD) History of appendectomy History of carpal tunnel release left wrist 1974 History of cholecystectomy S/P CABG (coronary artery bypass graft) Family History Other CAD (coronary artery disease) Cancer Diabetes Hypertension Denies family history of Stroke Social History Smoking and tobacco status: former smoker Quit status (tobacco): has quit using tobacco Year quit tobacco: 1993 Former quit date comment: 2 ppd X 20 years Alcohol intake: never Substance/Drug Use: never Household members: spouse Marital status: Physical Exam Const: COMMON NORMALS: no acute distress, average body habitus, patient oriented x3, no limitations, healthy appearing, alert and well nourished HENMT: COMMON NORMALS: normocephalic, atraumatic, hearing grossly normal bilaterally, external ears normal, Normal external nose present and moist oral mucous membranes HEAD & SCALP: normocephalic and atraumatic NOSE: Normal external nose present EXTERNAL EAR: Yes external ears normal Eye: COMMON NORMALS: Equal, round and reactive pupils present, EOMs intact bilaterally, conjunctivae normal and no scleral icterus CONJUNCTIVA: Yes conjunctivae normal PUPIL: Yes Equal, round and reactive pupils present Neck/C-Spine: COMMON NORMALS: full ROM, no lymphadenopathy, supple, no meningeal signs, no JVD and Thyroid normal THYROID: Thyroid normal Lymph: LYMPHATIC: no lymphadenopathy noted Chest: COMMONS NORMALS: normal inspection of the chest and normal palpation of entire chest wall Resp: COMMON NORMALS: normal respiratory effort, No retractions, No use of accessory muscles and clear to auscultation bilaterally AUSCULTATION: clear to auscultation bilaterally Cardio: COMMON NORMALS: no JVD, regular rate, regular rhythm, S1 normal heart sound present, S2 normal heart sound present, No gallops present (Cardio), No clicks present (Cardio), No murmurs present (Cardio) and No rub (Cardio) RATE: regular rate RHYTHM: regular rhythm HEART SOUNDS: S1 normal heart sound present and S2 normal heart sound present GI: COMMON NORMALS: Normal to inspection, nondistended, normoactive bowel sounds present, Soft to palpation, non-tender, No hepatosplenomegaly present and no masses PALPATION: Yes Soft to palpation and Yes No hepatosplenomegaly present : COMMON NORMALS: Yes no CVA tenderness BLADDER/KIDNEY EXAM: Yes no CVA tenderness Back/Pelvis: COMMON NORMALS: no CVA tenderness Neuro: COMMON NORMALS: patient oriented x3 SENSORIUM/ORIENTATION: Yes alert MENINGEAL SIGNS: Yes no meningeal signs Course Vital Signs: Vital signs: Vital Signs Temperature 97.8 F 02/12/23 11:43 Pulse Rate 78 02/12/23 12:21 Respiratory Rate 18 02/12/23 11:43 Blood Pressure 158/101 02/12/23 12:21 Pulse Oximetry 97 02/12/23 12:21 Oxygen Delivery Me thod Room Air 02/12/23 11:43 MDM - General Adult Medical Decision Making Patient presents to the ER from Dr. Macedo's office for evaluation of pleural effusion and chest pain upon breathing. Lab work was obtained which was essentially unremarkable for the patient. Patient is underwent a CT of the chest without contrast which showed unchanged bilateral pleural effusions with cardiomegaly. These was discussed with the patient to thought he may have little bit of pleurisy and/or costochondritis. Patient did not declined using steroids secondary to his diabetes. Patient will follow-up with Dr. Su and call his office to see if he can get his appointment moved up. Differential Diagnosis CHF, fluid overload, dyspnea, Medical Records I reviewed the patient's medical records. Lab Data I reviewed the patient's lab results. 02/12/23 11:08 02/12/23 11:[address] 02/12/23 11:14 Impression: 1. Unchanged bilateral pleural effusions with cardiomegaly. 2. Minimal peritoneal fluid with perihepatic fluid. 3. Cardiomegaly and small pericardial effusion. 4. Chronic pancreatitis Laboratory Results WBC 9.0 10^3/uL (4.0-10.0) 02/12/23 11:08 RBC 3.12 10^6/uL (4.1-5.3) L 02/12/23 11:08 Hgb 9.1 g/dL (11.7-16.6) L 02/12/23 11:08 Hct 28.4 % (42.0-52.0) L 02/12/23 11:08 MCV 91.0 fl (80-94) 02/12/23 11:08 MCH 29.2 pg (28.0-34.0) 02/12/23 11:08 MCHC 32.0 g/dL (30.0-36.0) 02/12/23 11:08 RDW 18.0 % (12.1-15.1) H 02/12/23 11:08 Plt Count 153 10^3/cmm (130-400) 02/12/23 11:08 MPV 10.0 fL (7.4-10.4) 02/12/23 11:08 Neut % (Auto) 71.0 % 02/12/23 11:08 Lymph % (Auto) 13.2 % 02/12/23 11:08 O'Brien % (Auto) 11.2 % 02/12/23 11:08 Eos % (Auto) 3.6 % 02/12/23 11:08 Baso % (Auto) 0.4 % 02/12/23 11:08 Neut # (Auto) 6.40 10^3/uL (1.8-7.7) 02/12/23 11:08 Lymph # (Auto) 1.2 10^3/uL (0.8-4.8) 02/12/23 11:08 O'Brien # (Auto) 1.0 10^3/uL (0.2-0.9) H 02/12/23 11:08 Eos # (Auto) 0.3 10^3/uL (0.0-0.8) 02/12/23 11:08 Baso # (Auto) 0.0 10^3/uL (0.0-0.1) 02/12/23 11:08 Nucleated RBC % (auto) 0 % 02/12/23 11:08 Nucleated RBCs # 0.0 /100WBC 02/12/23 11:08 Sodium 136 mmol/L (136-145) 02/12/23 11:08 Potassium 3.3 mmol/L (3.5-5.1) L 02/12/23 11:08 Chloride 95 mmol/L (98-107) L 02/12/23 11:08 Carbon Dioxide 24 mmol/L (22-29) 02/12/23 11:08 Anion Gap 20.3 (5-19) H 02/12/23 11:08 BUN 35 mg/dL (8-23) H 02/12/23 11:08 Creatinine 7.7 mg/dL (0.7-1.2) H* 02/12/23 11:08 GFR Calculation 7.0 mL/min (90-130) L 02/12/23 11:08 Glucose 234 mg/dL (65-115) H 02/12/23 11:08 Calculated Osmolality 298 mOsm/kg (285-295) H 02/12/23 11:08 Calcium 8.2 mg/dL (8.5-10.5) L 02/12/23 11:08 Total Bilirubin 0.2 mg/dL (0.15-1.2) 02/12/23 11:08 AST 20 U/L (0-40) 02/12/23 11:08 ALT 12 U/L (0-41) 02/12/23 11:08 Alkaline Phosphatase 122 U/L (40-130) 02/12/23 11:08 NT-Pro-B Natriuret Pep > 84593 pg/mL (0-125) H 02/12/23 11:08 Total Protein 5.8 g/dL (6.6-8.7) L 02/12/23 11:08 Albumin 2.8 g/dL (3.5-5.2) L 02/12/23 11:08 Globulin 3.0 g/dL (1.3-4.6) 02/12/23 11:08 EKG Data EKG 1: Interpretation: EKG shows sinus rhythm with ventricular rate of 75 beats minute, SD interval 168, QRS duration 91, QTc of 454, occasional PVC, Q waves in V1 and V2, negative T waves in 2 and aVF, Computer generated interpretation: Chest CT 02/12/23 11:14 Impression: 1. Unchanged bilateral pleural effusions with cardiomegaly. 2. Minimal peritoneal fluid with perihepatic fluid. 3. Cardiomegaly and small pericardial effusion. 4. Chronic pancreatitis Discharge Plan Discharge Patient Disposition: Home Clinical Impression: Bilateral pleural effusion, Costochondritis Condition: Stable Prescriptions: No Action nitroglycerin [Nitrostat] 0.4 mg tablet, sublingual 0.4 mg SUBLINGUAL Q5M PRN (Reason: Chest Pain) Qty: 25 2RF Rx Instructions: do not exceed 3 doses per episode clopidogrel 75 mg tablet 75 mg PO DAILY Bevespi Aerosphere 9-4.8 mcg HFA aerosol inhaler 2 puff inhalation BID Qty: 10.7 3RF Creon 12,000-38,000 -60,000 unit Capsule,Delayed Release(Dr/Ec) See Rx Instructions .ROUTE .COMPLEX Rx Instructions: 5 cap po with meals and 2-3 caps with snacks. levothyroxine [Euthyrox] 150 mcg Tablet 150 mcg PO QAM Rx Instructions: Take on an empty stomach sertraline 50 mg Tablet 75 mg PO QPM pregabalin [Lyrica] 150 mg Capsule 150 mg PO QPM calcium acetate(phosphat bind) 667 mg capsule See Rx Instructions .ROUTE .COMPLEX Rx Instructions: Take 4 caps PO with meals and 2 caps with snacks. (Do not exceed 16 caps per day). cholecalciferol (vitamin D3) 1,250 mcg (50,000 unit) capsule 50,000 unit PO Q7D Rx Instructions: on wed methocarbamol 500 mg Tablet 500 mg PO BID famotidine 20 mg tablet 20 mg PO DAILY metoprolol succinate 25 mg tablet extended release 24 hr 25 mg PO DAILY isosorbide mononitrate 120 mg tablet extended release 24 hr 120 mg PO DAILY Qty: 60 0RF oxycodone-acetaminophen 5-325 mg tablet 1 tab PO Q8H PRN (Reason: pain) Qty: 14 0RF albuterol sulfate 90 mcg/actuation HFA aerosol inhaler 1 - 2 puff INHALATION Q4H PRN (Reason: Shortness Of Breath) ropinirole 0.5 mg tablet 0.5 mg PO BEDTIME zolpidem 10 mg tablet 10 mg PO BEDTIME RenaPlex-D 800 mcg-12.5 mg -2,000 unit tablet 1 tab PO QAM naloxone 4 mg/actuation spray,non-aerosol See Rx Instructions .ROUTE .COMPLEX Rx Instructions: ADMINISTER A SINGLE SPRAY IN ONE NOSTRIL UPON SIGNS OF OPIOID OVERDOSE. CALL 911. REPEAT AFTER 3 MINUTES IF NO RESPONSE. atorvastatin 40 mg tablet 40 mg PO QPM 30 Days Qty: 30 3RF aspirin 81 mg Tablet,Delayed Release (Dr/Ec) 81 mg PO BEDTIME 30 Days Qty: 30 0RF insulin aspart U-100 [Novolog FlexPen U-100 Insulin] 100 unit/mL (3 mL) insulin pen See Rx Instructions .ROUTE .COMPLEX Qty: 15 0RF Rx Instructions: sliding scale tid insulin glargine [Basaglar KwikPen U-100 Insulin] 100 unit/mL (3 mL) Insulin Pen See Rx Instructions .ROUTE .COMPLEX Qty: 15 0RF Rx Instructions: 10 units according to bag used for dialysis Discharge Orders: Discharge ED (Routine); Ordered 02/12/23 Ordered By: Nadir Zarate Referrals: Kiran Reardon MD [Primary Care Provider] - 1 week Patient Instructions: Costochondritis (ED), Pleural Effusion Activity Restrictions/Additional Instructions: Please call Dr. Weinberg and see if he can make your follow-up appointment of a bit sooner. Otherwise follow-up with your primary care doctor in approximately 7 to 10 days as needed. If your symptoms worsen please feel free to return to the ER for further evaluation and treatment. Coding Level of Care Code ED Assembler Type Bar And Segment for Anatoliy Hickman
--- NOTE | 2023-02-12 11:14 | CT_ITS ---
WS: [id number] CT scan of the chest without IV contrast, additional two-dimensional coronal and sagittal reconstruct ion was performed. 02/12/2023 Clinical Data: dyspnea, fluid overload Comparison: CT chest, 01/31/2023 DLP: 450.[address] scans at [facility] use at least one of these dose optimization techniques: automated e xposure control; mA and/or kV adjustment per patient size (includes targeted exams where dose is matc hed to clinical indication); or iterative reconstruction. Findings: No nodules or masses are seen. There are moderate bilateral pleural effusions unchanged. The lungs sh ow atelectatic changes. The heart is enlarged with coronary artery calcification and a small pericard ial effusion. There is extensive calcification of the thoracic aorta. The heart size is enlarged. The re is a stimulator overlying the right upper chest which may be 4 the vagal nerve. Midline sternotomy sutures are seen. There are fractures of the left first, second and third ribs unchanged. There is s light dilatation of the ascending thoracic aorta unchanged. The pulmonary artery is unchanged. There is a small hiatal hernia. There is no axillary or significant mediastinal adenopathy. The upper abdomen demonstrates minimal perihepatic fluid and free peritoneal fluid. There are numerou s vascular calcifications in the kidneys. There are calcifications in the head and body of the pancre as. CT/CT chest wo con [id number] Impression: 1. Unchanged bilateral pleural effusions with cardiomegaly. 2. Minimal peritoneal fluid with perihepatic fluid. 3. Cardiomegaly and small pericardial effusion. 4. Chronic pancreatitis
[2023-02-12 11:28] LABS: Basophils % 0.4 %; Eosinophils # 0.3 10^3/uL (0.0-0.8); Eosinophils % 3.6 %; Hematocrit 28.4 % (42.0-52.0); Hemoglobin 9.1 g/dL (11.7-16.6); Lymphocytes # 1.2 10^3/uL (0.8-4.8); Lymphocytes % 13.2 %; Mean Corpuscular Hemoglobin 29.2 pg (28.0-34.0); Monocytes % 11.2 %; Nucleated Red Blood Cells % 0 %; Platelet Count 153 10^3/cmm (130-400); Red Blood Count 3.12 10^6/uL (4.1-5.3)
[2023-02-12 11:43] VITALS: BP 153/81; PULSE 75; RESP 18; TEMP 36.6; O2SAT 96
[2023-02-12 11:48] LABS: Alanine Aminotransferase 12 U/L (0-41); Albumin Level 2.8 g/dL (3.5-5.2); Alkaline Phosphatase 122 U/L (40-130); Anion Gap 20.3 (5-19); Aspartate Amino Transferase 20 U/L (0-40); Blood Urea Nitrogen 35 mg/dL (8-23); Calcium 8.2 mg/dL (8.5-10.5); Carbon Dioxide 24 mmol/L (22-29); Chloride 95 mmol/L (98-107); Glucose 234 mg/dL (65-115); Osmolality Calculated 298 mOsm/kg (285-295); Potassium 3.3 mmol/L (3.5-5.1); Sodium 136 mmol/L (136-145); Total Bilirubin 0.2 mg/dL (0.15-1.2); Total Protein 5.8 g/dL (6.6-8.7)
[2023-02-12 12:21] VITALS: BP 158/101; PULSE 78; O2SAT 97
[2023-02-12 12:30] LABS: NT Pro B Type Natriuretic Pept > 70000 pg/mL (0-125)
[2023-02-12 12:51] VITALS: BP 184/95; PULSE 79; O2SAT 97
== END 2023-02-12 12:51 | disposition home or self-care (01) ==
PROVIDERS: Emergency Provider Emergency Medicine; PCP Family Medicine
DX: J90 Pleural effusion, not elsewhere classified (principal); M94.0 Chondrocostal junction syndrome [Tietze]; Z79.82 Long term (current) use of aspirin; Z79.02 Long term (current) use of antithrombotics/antiplatelets; Z79.4 Long term (current) use of insulin; Z87.891 Personal history of nicotine dependence; J44.9 Chronic obstructive pulmonary disease, unspecified; E11.22 Type 2 diabetes mellitus with diabetic chronic kidney disease; I12.0 Hypertensive chronic kidney disease with stage 5 chronic kidney disease or end stage renal disease; N18.6 End stage renal disease; E78.5 Hyperlipidemia, unspecified; G20 Parkinson's disease; Z99.2 Dependence on renal dialysis; Z95.1 Presence of aortocoronary bypass graft; I25.110 Atherosclerotic heart disease of native coronary artery with unstable angina pectoris; R74.8 Abnormal levels of other serum enzymes; R62.7 Adult failure to thrive; E11.59 Type 2 diabetes mellitus with other circulatory complications
CPT/HCPCS: 71250; 80053; 83880; 85025; 93005; 99215; 99285

== ENCOUNTER → 2023-02-23 08:09 | Outpatient (BNVA) | payer MEDICARE, OTHER, SELFPAY | PROVIDERS: PCP Family Medicine; Visit Provider Podiatrist Foot & Ankle Surgery | DX: E11.42 Type 2 diabetes mellitus with diabetic polyneuropathy (principal); L60.3 Nail dystrophy; N18.5 Chronic kidney disease, stage 5; I73.9 Peripheral vascular disease, unspecified; E11.22 Type 2 diabetes mellitus with diabetic chronic kidney disease; M20.42 Other hammer toe(s) (acquired), left foot; M20.41 Other hammer toe(s) (acquired), right foot; Z79.4 Long term (current) use of insulin | CPT/HCPCS: 11721 ==

== ENCOUNTER 2023-02-26 16:21 | Emergency (ER) | payer MEDICARE, OTHER, SELFPAY ==
[2023-02-26 16:25] VITALS: BP 144/84; PULSE 68; RESP 18; TEMP 36.8; O2SAT 98; BMI 25.1
--- NOTE | 2023-02-26 16:34 | ECG_ITS ---
[facility] Test Date: 2023-02-26 Pat Name: Anshu Hurt Department: Room: Gender: Male [employer] Director: : 1950 Requested By: Clifton Seth Order Number: [id number] Murtaza MD: Gladys Hwang M.D. Measurements Intervals [place] Rate: 67 P: 31 DE: 220 QRS: -9 QRSD: 98 T: 160 QT: 448 QTc: 474 Interpretive Statements SINUS RHYTHM WITH FIRST DEGREE AV BLOCK WITH OCCASIONAL SUPRAVENTRICULAR PREMATURE COMPLEXES LEFT VENTRICULAR HYPERTROPHY AND ST-T CHANGE [VOLTAGE CRITERIA PLUS ST/T ABNORMALITY] Compared to ECG 02/12/2023 11:06:46 First degree AV block now present Left ventricular hypertrophy now present ST (T wave) deviation now present Ventricular premature complex(es) no longer present Myocardial infarct finding no longer present T-wave abnormality no longer present Possible ischemia no longer present Electronically Signed On 02-27-2023 6:57:11 CDT by Gladys Hwang M.D. [email or web address]
--- NOTE | 2023-02-26 16:50 | ED_ITS ---
Documented by User: Clifton Seth MD 03/10/23 19:34 HPI - Chest Pain General: Chief Complaint: Chest Pain Stated Complaint: SOB Time Seen by Provider: 02/26/23 16:50 History of Present Illness: Mr. Hurt is a 73-year-old gentleman with extensive complicated history including CABG x3 approximately 7 weeks ago presenting the emergency department for evaluation of chest pain. He has had chest pain since his procedure intermittently. Onset of symptoms yesterday with substernal chest pain without significant radiation. He notes shortness of breath. Onset was at rest. Denies other typical cardiac features though this 1 did not improve with nitro like previous episodes have. No other specific changes in health, exacerbating, or alleviating factors identified. Onset (ago): day(s) Timing of current episode: episodic Pain location: substernal Review of Systems General: Reports: 10 or more systems reviewed and unremarkable except in HPI and below PFSH ED PFSH: Medical History Acute hypokalemia Bilateral wheezing Chest pain COPD exacerbation Coronary artery disease Coronary artery disease due to type 2 diabetes mellitus Depression Diabetes End stage renal disease ESRD (end stage renal disease) Essential tremor Gastroparesis Gout Hypercapnic respiratory failure Hyperlipidemia Hypertension Hypothyroidism (acquired) Lung entrapment Pancreatitis takes chronic pancrease Parkinsonian tremor Peritoneal dialysis catheter in place Pleural effusion Pneumonia Pneumonia Pulmonary nodule SOB (shortness of breath) Stage 5 chronic kidney disease Tremor Vitiligo Weakness Surgical History History of appendectomy History of carpal tunnel release left wrist 1974 History of cholecystectomy S/P CABG (coronary artery bypass graft) Family History Other CAD (coronary artery disease) Cancer Diabetes Hypertension Denies family history of Stroke Social History Smoking and tobacco status: former smoker Quit status (tobacco): has quit using tobacco Year quit tobacco: 1993 Former quit date comment: 2 ppd X 20 years Alcohol intake: never Substance/Drug Use: never Household members: spouse Marital status: Physical Exam Const: COMMON NORMALS: alert GENERAL APPEARANCE: cooperative and well developed HENMT: COMMON NORMALS: normocephalic and atraumatic HEAD & SCALP: normocephalic and atraumatic Eye: COMMON NORMALS: conjunctivae normal CONJUNCTIVA: Yes conjunctivae normal SCLERA: sclerae normal Neck/C-Spine: COMMON NORMALS: supple GENERAL: Yes trachea midline Chest: OTHER: Well-healing surgical incision. Resp: COMMON NORMALS: normal respiratory effort EFFORT & INSPECTION: Yes able to speak in complete sentences Cardio: COMMON NORMALS: regular rate and regular rhythm RATE: regular rate RHYTHM: regular rhythm GI: COMMON NORMALS: Soft to palpation PALPATION: Yes Soft to palpation and No Tenderness to palpation present (GI) PERCUSSION: normal to percussion Extremity: GENERAL: Yes normal exam except as noted and No edema Neuro: COMMON NORMALS: moves all extremities SENSORIUM/ORIENTATION: Yes alert and No Orientation impaired Psych: COMMON NORMALS: mental status grossly normal and Normal thought process present THOUGHT PROCESS: Normal thought process present Course Vital Signs: Vital signs: Vital Signs Temperature 98.2 F 02/26/23 16:25 Pulse Rate 72 02/26/23 20:30 Respiratory Rate 12 02/26/23 20:30 Blood Pressure 154/101 02/26/23 20:30 Pulse Oximetry 93 02/26/23 20:30 Oxygen Delivery Me thod Room Air 02/26/23 20:30 MDM - Chest Pain Medical Decision Making 73-year-old gentleman with recent history of CABG presented to the emergency department for chest pain. Exam as above. Nontoxic and vitals are satisfactory. Evaluation ordered and patient handed off to Dr. Woodard pending completion of ED evaluation. Care assumed at change of shift. Patient has chronic ischemic cardiomyopathy and chronic angina. He recently had a bypass prior to that just prior to that he had stenting done. Discussed this patient with cardiology previously he really is limited with his options at this point to medical management. His troponins are chronically elevated. He is currently on isosorbide mononitrate 120 once daily as well as Toprol 25 daily. Troponin is not trending up he has chronic stable congestive heart failure does not appear to be acute decompensated. Chest x-ray shows chronic stable pleural effusions due to his chronic congestive heart failure. I discussed with cardiology. Patient is resting comfortably his vital signs are stable at this time he still mildly hypertensive and he is not particularly bradycardic they recommend increasing his metoprolol to 50 daily and adding amlodipine 5 daily. Short-term follow-up with cardiology clinic to reevaluate maximizing his medical therapy. Lab Data 02/26/23 17:06 02/26/23 17:06 Radiology Impressions Chest X-Ray 02/26/23 16:55 IMPRESSION: Right basilar opacity is likely due to the pleural effusion seen on the prior CT scan. Cannot exclude accompanying infiltrate or atelectasis. Lung huerta are otherwise clear. Laboratory Results WBC 7.4 10^3/uL (4.0-10.0) 02/26/23 17:06 RBC 2.99 10^6/uL (4.1-5.3) L 02/26/23 17:06 Hgb 8.9 g/dL (11.7-16.6) L 02/26/23 17:06 Hct 26.9 % (42.0-52.0) L 02/26/23 17:06 MCV 90.0 fl (80-94) 02/26/23 17:06 MCH 29.8 pg (28.0-34.0) 02/26/23 17:06 MCHC 33.1 g/dL (30.0-36.0) 02/26/23 17:06 RDW 17.9 % (12.1-15.1) H 02/26/23 17:06 Plt Count 177 10^3/cmm (130-400) 02/26/23 17:06 MPV 9.7 fL (7.4-10.4) 02/26/23 17:06 Neut % (Auto) 66.5 % 02/26/23 17:06 Lymph % (Auto) 18.4 % 02/26/23 17:06 [place] % (Auto) 11.0 % 02/26/23 17:06 Eos % (Auto) 3.4 % 02/26/23 17:06 Baso % (Auto) 0.3 % 02/26/23 17:06 Neut # (Auto) 4.95 10^3/uL (1.8-7.7) 02/26/23 17:06 Lymph # (Auto) 1.4 10^3/uL (0.8-4.8) 02/26/23 17:06 [place] # (Auto) 0.8 10^3/uL (0.2-0.9) 02/26/23 17:06 Eos # (Auto) 0.3 10^3/uL (0.0-0.8) 02/26/23 17:06 Baso # (Auto) 0.0 10^3/uL (0.0-0.1) 02/26/23 17:06 Nucleated RBC % (auto) 0 % 02/26/23 17:06 Nucleated RBCs # 0.0 /100WBC 02/26/23 17:06 Sodium 134 mmol/L (136-145) L 02/26/23 17:06 Potassium 3.5 mmol/L (3.5-5.1) 02/26/23 17:06 Chloride 92 mmol/L (98-107) L 02/26/23 17:06 Carbon Dioxide 26 mmol/L (22-29) 02/26/23 17:06 Anion Gap 18.5 (5-19) 02/26/23 17:06 BUN 38 mg/dL (8-23) H 02/26/23 17:06 Creatinine 8.1 mg/dL (0.7-1.2) H* 02/26/23 17:06 GFR Calculation Not Reportable 02/26/23 17:06 Glucose 176 mg/dL (65-115) H 02/26/23 17:06 Calculated Osmolality 291 mOsm/kg (285-295) 02/26/23 17:06 Calcium 8.7 mg/dL (8.5-10.5) 02/26/23 17:06 Total Bilirubin 0.2 mg/dL (0.15-1.2) 02/26/23 17:06 AST 22 U/L (0-40) 02/26/23 17:06 ALT 16 U/L (0-41) 02/26/23 17:06 Alkaline Phosphatase 159 U/L (40-130) H 02/26/23 17:06 Troponin T Baseline 557 ng/L (0-15) H* 02/26/23 17:06 Troponin T 120 Minute 493.7 ng/L (0-15) H 02/26/23 18:51 Delta Troponin T -63.3 ABS# (0-10) L 02/26/23 18:51 NT-Pro-B Natriuret Pep > 84651 pg/mL (0-125) H 02/26/23 17:06 Total Protein 5.5 g/dL (6.6-8.7) L 02/26/23 17:06 Albumin 3.1 g/dL (3.5-5.2) L 02/26/23 17:06 Globulin 2.4 g/dL (1.3-4.6) 02/26/23 17:06 Lipase 7 U/L (13-60) L 02/26/23 17:06 Discharge Plan Discharge Patient Disposition: Home Clinical Impression: Chronic stable angina, Hypertension, Atherosclerotic heart disease of [place] coronary artery with unstable angina pectoris, Coronary artery disease due to type 2 diabetes mellitus Condition: Stable Prescriptions: New amlodipine 5 mg tablet 5 mg PO DAILY Qty: 30 0RF Toprol XL 50 mg tablet extended release 24 hr 50 mg PO DAILY Qty: 30 0RF No Action nitroglycerin [Nitrostat] 0.4 mg tablet, sublingual 0.4 mg SUBLINGUAL Q5M PRN (Reason: Chest Pain) Qty: 25 2RF Rx Instructions: do not exceed 3 doses per episode zolpidem [Ambien] 10 mg tablet PO sertraline [Zoloft] 50 mg tablet 50 mg PO DAILY clopidogrel 75 mg tablet 75 mg PO DAILY Bevespi Aerosphere 9-4.8 mcg HFA aerosol inhaler 2 puff inhalation BID Qty: 10.7 3RF Creon 12,000-38,000 -60,000 unit Capsule,Delayed Release(Dr/Ec) See Rx Instructions .ROUTE .COMPLEX Rx Instructions: 5 cap po with meals and 2-3 caps with snacks. levothyroxine [Euthyrox] 150 mcg Tablet 150 mcg PO QAM Rx Instructions: Take on an empty stomach sertraline 50 mg Tablet 75 mg PO QPM pregabalin [Lyrica] 150 mg Capsule 150 mg PO QPM calcium acetate(phosphat bind) 667 mg capsule See Rx Instructions .ROUTE .COMPLEX Rx Instructions: Take 4 caps PO with meals and 2 caps with snacks. (Do not exceed 16 caps per day). cholecalciferol (vitamin D3) 1,250 mcg (50,000 unit) capsule 50,000 unit PO Q7D Rx Instructions: on wed methocarbamol 500 mg Tablet 500 mg PO BID famotidine 20 mg tablet 20 mg PO DAILY metoprolol succinate 25 mg tablet extended release 24 hr 25 mg PO DAILY isosorbide mononitrate 120 mg tablet extended release 24 hr 120 mg PO DAILY Qty: 60 0RF oxycodone-acetaminophen 5-325 mg tablet 1 tab PO Q8H PRN (Reason: pain) Qty: 14 0RF albuterol sulfate 90 mcg/actuation HFA aerosol inhaler 1 - 2 puff INHALATION Q4H PRN (Reason: Shortness Of Breath) ropinirole 0.5 mg tablet 0.5 mg PO BEDTIME zolpidem 10 mg tablet 10 mg PO BEDTIME RenaPlex-D 800 mcg-12.5 mg -2,000 unit tablet 1 tab PO QAM naloxone 4 mg/actuation spray,non-aerosol See Rx Instructions .ROUTE .COMPLEX Rx Instructions: ADMINISTER A SINGLE SPRAY IN ONE NOSTRIL UPON SIGNS OF OPIOID OVERDOSE. CALL 911. REPEAT AFTER 3 MINUTES IF NO RESPONSE. atorvastatin 40 mg tablet 40 mg PO QPM 30 Days Qty: 30 3RF aspirin 81 mg Tablet,Delayed Release (Dr/Ec) 81 mg PO BEDTIME 30 Days Qty: 30 0RF insulin aspart U-100 [Novolog FlexPen U-100 Insulin] 100 unit/mL (3 mL) insulin pen See Rx Instructions .ROUTE .COMPLEX Qty: 15 0RF Rx Instructions: sliding scale tid insulin glargine [Basaglar KwikPen U-100 Insulin] 100 unit/mL (3 mL) Insulin Pen See Rx Instructions .ROUTE .COMPLEX Qty: 15 0RF Rx Instructions: 10 units according to bag used for dialysis Discharge Orders: Discharge ED (Routine); Ordered 02/26/23 Ordered By: Dago Woodard Referrals: Kiran Reardon MD [Primary Care Provider] - Discharge Diet: Usual diet Discharge Activity: Limit activity as instructed Patient Instructions: Opioid Safety, Pain Management Activity Restrictions/Additional Instructions: You were seen today for your recurrent chest pain. I discussed your case with the pot lining supervisor on-call they recommended increasing her metoprolol and adding amlodipine. Continue to use the sublingual nitro as needed continue all of your other previously prescribed medications. You should follow-up with a pot lining supervisor early next week. Sign Out Sign Out Data: Patient Sign Out occurred on 02/26/23 at 18:20. Patient's care was discussed, and care was transferred from to Dago Woodard DO. 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 mellitus Depression Diabetes End stage renal disease ESRD (end stage renal disease) Essential tremor Gastroparesis Gout Hypercapnic respiratory failure Hyperlipidemia Hypertension Hypothyroidism (acquired) Lung entrapment Pancreatitis takes chronic pancrease Parkinsonian tremor Peritoneal dialysis catheter in place Pleural effusion Pneumonia Pneumonia Pulmonary nodule SOB (shortness of breath) Stage 5 chronic kidney disease Tremor Vitiligo Weakness Surgical History History of appendectomy History of carpal tunnel release left wrist 1975 History of cholecystectomy S/P CABG (coronary artery bypass graft) Family History Other CAD (coronary artery disease) Cancer Diabetes Hypertension Denies family history of Stroke Social History Smoking and tobacco status: former smoker Quit status (tobacco): has quit using tobacco Year quit tobacco: 1993 Former quit date comment: 2 ppd X 20 years Alcohol intake: never Substance/Drug Use: never Household members: spouse Marital status: Course Vital Signs: Vital signs: Vital Signs Temperature 98.2 F 02/26/23 16:25 Pulse Rate 72 02/26/23 20:30 Respiratory Rate 12 02/26/23 20:30 Blood Pressure 154/101 02/26/23 20:30 Pulse Oximetry 93 02/26/23 20:30 Oxygen Delivery Me thod Room Air 02/26/23 20:30 MDM - Chest Pain Medical Decision Making Care assumed at change of shift. Patient has chronic ischemic cardiomyopathy and chronic angina. He recently had a bypass prior to that just prior to that he had stenting done. Discussed this patient with cardiology previously he really is limited with his options at this point to medical management. His troponins are chronically elevated. He is currently on isosorbide mononitrate 120 once daily as well as Toprol 25 daily. Troponin is not trending up he has chronic stable congestive heart failure does not appear to be acute decompensated. Chest x-ray shows chronic stable pleural effusions due to his c hronic congestive heart failure. I discussed with cardiology. Patient is resting comfortably his vital signs are stable at this time he still mildly hypertensive and he is not particularly bradycardic they recommend increasing his metoprolol to 50 daily and adding amlodipine 5 daily. Short-term follow-up with cardiology clinic to reevaluate maximizing his medical therapy. Medical Records I reviewed the patient's medical records. Lab Data I reviewed the patient's lab results. 02/26/23 17:06 02/26/23 17:06 Radiology Impressions Chest X-Ray 02/26/23 16:55 IMPRESSION: Right basilar opacity is likely due to the pleural effusion seen on the prior CT scan. Cannot exclude accompanying infiltrate or atelectasis. Lung huerta are otherwise clear. Laboratory Results WBC 7.4 10^3/uL (4.0-10.0) 02/26/23 17:06 RBC 2.99 10^6/uL (4.1-5.3) L 02/26/23 17:06 Hgb 8.9 g/dL (11.7-16.6) L 02/26/23 17:06 Hct 26.9 % (42.0-52.0) L 02/26/23 17:06 MCV 90.0 fl (80-94) 02/26/23 17:06 MCH 29.8 pg (28.0-34.0) 02/26/23 17:06 MCHC 33.1 g/dL (30.0-36.0) 02/26/23 17:06 RDW 17.9 % (12.1-15.1) H 02/26/23 17:06 Plt Count 177 10^3/cmm (130-400) 02/26/23 17:06 MPV 9.7 fL (7.4-10.4) 02/26/23 17:06 Neut % (Auto) 66.5 % 02/26/23 17:06 Lymph % (Auto) 18.4 % 02/26/23 17:06 [place] % (Auto) 11.0 % 02/26/23 17:06 Eos % (Auto) 3.4 % 02/26/23 17:06 Baso % (Auto) 0.3 % 02/26/23 17:06 Neut # (Auto) 4.95 10^3/uL (1.8-7.7) 02/26/23 17:06 Lymph # (Auto) 1.4 10^3/uL (0.8-4.8) 02/26/23 17:06 [place] # (Auto) 0.8 10^3/uL (0.2-0.9) 02/26/23 17:06 Eos # (Auto) 0.3 10^3/uL (0.0-0.8) 02/26/23 17:06 Baso # (Auto) 0.0 10^3/uL (0.0-0.1) 02/26/23 17:06 Nucleated RBC % (auto) 0 % 02/26/23 17:06 Nucleated RBCs # 0.0 /100WBC 02/26/23 17:06 Sodium 134 mmol/L (136-145) L 02/26/23 17:06 Potassium 3.5 mmol/L (3.5-5.1) 02/26/23 17:06 Chloride 92 mmol/L (98-107) L 02/26/23 17:06 Carbon Dioxide 26 mmol/L (22-29) 02/26/23 17:06 Anion Gap 18.5 (5-19) 02/26/23 17:06 BUN 38 mg/dL (8-23) H 02/26/23 17:06 Creatinine 8.1 mg/dL (0.7-1.2) H* 02/26/23 17:06 GFR Calculation Not Reportable 02/26/23 17:06 Glucose 176 mg/dL (65-115) H 02/26/23 17:06 Calculated Osmolality 291 mOsm/kg (285-295) 02/26/23 17:06 Calcium 8.7 mg/dL (8.5-10.5) 02/26/23 17:06 Total Bilirubin 0.2 mg/dL (0.15-1.2) 02/26/23 17:06 AST 22 U/L (0-40) 02/26/23 17:06 ALT 16 U/L (0-41) 02/26/23 17:06 Alkaline Phosphatase 159 U/L (40-130) H 02/26/23 17:06 Troponin T Baseline 557 ng/L (0-15) H* 02/26/23 17:06 Troponin T 120 Minute 493.7 ng/L (0-15) H 02/26/23 18:51 Delta Troponin T -63.3 ABS# (0-10) L 02/26/23 18:51 NT-Pro-B Natriuret Pep > 45406 pg/mL (0-125) H 02/26/23 17:06 Total Protein 5.5 g/dL (6.6-8.7) L 02/26/23 17:06 Albumin 3.1 g/dL (3.5-5.2) L 02/26/23 17:06 Globulin 2.4 g/dL (1.3-4.6) 02/26/23 17:06 Lipase 7 U/L (13-60) L 02/26/23 17:06 Discharge Plan Discharge Patient Disposition: Home Clinical Impression: Chronic stable angina, Hypertension, Atherosclerotic heart disease of [place] coronary artery with unstable angina pectoris, Coronary artery disease due to type 2 diabetes mellitus Condition: Stable Prescriptions: New amlodipine 5 mg tablet 5 mg PO DAILY Qty: 30 0RF Toprol XL 50 mg tablet extended release 24 hr 50 mg PO DAILY Qty: 30 0RF No Action nitroglycerin [Nitrostat] 0.4 mg tablet, sublingual 0.4 mg SUBLINGUAL Q5M PRN (Reason: Chest Pain) Qty: 25 2RF Rx Instructions: do not exceed 3 doses per episode zolpidem [Ambien] 10 mg tablet PO sertraline [Zoloft] 50 mg tablet 50 mg PO DAILY clopidogrel 75 mg tablet 75 mg PO DAILY Bevespi Aerosphere 9-4.8 mcg HFA aerosol inhaler 2 puff inhalation BID Qty: 10.7 3RF Creon 12,000-38,000 -60,000 unit Capsule,Delayed Release(Dr/Ec) See Rx Instructions .ROUTE .COMPLEX Rx Instructions: 5 cap po with meals and 2-3 caps with snacks. levothyroxine [Euthyrox] 150 mcg Tablet 150 mcg PO QAM Rx Instructions: Take on an empty stomach sertraline 50 mg Tablet 75 mg PO QPM pregabalin [Lyrica] 150 mg Capsule 150 mg PO QPM calcium acetate(phosphat bind) 667 mg capsule See Rx Instructions .ROUTE .COMPLEX Rx Instructions: Take 4 caps PO with meals and 2 caps with snacks. (Do not exceed 16 caps per day). cholecalciferol (vitamin D3) 1,250 mcg (50,000 unit) capsule 50,000 unit PO Q7D Rx Instructions: on wed methocarbamol 500 mg Tablet 500 mg PO BID famotidine 20 mg tablet 20 mg PO DAILY metoprolol succinate 25 mg tablet extended release 24 hr 25 mg PO DAILY isosorbide mononitrate 120 mg tablet extended release 24 hr 120 mg PO DAILY Qty: 60 0RF oxycodone-acetaminophen 5-325 mg tablet 1 tab PO Q8H PRN (Reason: pain) Qty: 14 0RF albuterol sulfate 90 mcg/actuation HFA aerosol inhaler 1 - 2 puff INHALATION Q4H PRN (Reason: Shortness Of Breath) ropinirole 0.5 mg tablet 0.5 mg PO BEDTIME zolpidem 10 mg tablet 10 mg PO BEDTIME RenaPlex-D 800 mcg-12.5 mg -2,000 unit tablet 1 tab PO QAM naloxone 4 mg/actuation spray,non-aerosol See Rx Instructions .ROUTE .COMPLEX Rx Instructions: ADMINISTER A SINGLE SPRAY IN ONE NOSTRIL UPON SIGNS OF OPIOID OVERDOSE. CALL 911. REPEAT AFTER 3 MINUTES IF NO RESPONSE. atorvastatin 40 mg tablet 40 mg PO QPM 30 Days Qty: 30 3RF aspirin 81 mg Tablet,Delayed Release (Dr/Ec) 81 mg PO BEDTIME 30 Days Qty: 30 0RF insulin aspart U-100 [Novolog FlexPen U-100 Insulin] 100 unit/mL (3 mL) insulin pen See Rx Instructions .ROUTE .COMPLEX Qty: 15 0RF Rx Instructions: sliding scale tid insulin glargine [Basaglar KwikPen U-100 Insulin] 100 unit/mL (3 mL) Insulin Pen See Rx Instructions .ROUTE .COMPLEX Qty: 15 0RF Rx Instructions: 10 units according to bag used for dialysis Discharge Orders: Discharge ED (Routine); Ordered 02/26/23 Ordered By: Dago Woodard Referrals: Kiran Reardon MD [Primary Care Provider] - Discharge Diet: Usual diet Discharge Activity: Limit activity as instructed Patient Instructions: Opioid Safety, Pain Management Activity Restrictions/Additional Instructions: You were seen today for your recurrent chest pain. I discussed your case with the pot lining supervisor on-call they recommended increasing her metoprolol and adding amlodipine. Continue to use the sublingual nitro as needed continue all of your other previously prescribed medications. You should follow-up with a pot lining supervisor early next week. Sign Out Sign Out Data: Patient Sign Out occurred on 02/26/23 at 18:20. Patient's care was discussed, and care was transferred from to Dago Woodard DO. Coding Level of Care Code ED Bartacker for Anatoliy Hickman
--- NOTE | 2023-02-26 16:55 | XRR_ITS ---
PROCEDURE INFORMATION: Exam: XR Chest Exam date and time: 02/26/2023 5:17 PM Age: 73 years old Clinical indication: Pain; Chest pressure; Additional info: BROOKLYNN Hendrix TECHNIQUE: Imaging protocol: Radiologic exam of the chest. Views: 1 view. COMPARISON: CT chest wo con [id number] 02/12/2023 11:44 AM FINDINGS: Tubes, catheters and devices: Neurostimulator hardware is seen on the right. An electronic device also projects over the left apex. Lungs: See Pleural spaces finding. Pleural spaces: Right basilar opacity is likely due to the pleural effusion seen on the prior CT scan. Cannot exclude accompanying infiltrate or atelectasis. Heart/Mediastinum: Mild cardiomegaly. Bones/joints: Sternal sutures are again seen. No acute findings. XR/XR chest 1V portable [id number] IMPRESSION: Right basilar opacity is likely due to the pleural effusion seen on the prior CT scan. Cannot exclude accompanying infiltrate or atelectasis. Lung huerta are otherwise clear.
[2023-02-26 16:58] VITALS: BP 166/87; PULSE 81; RESP 17; O2SAT 95
[2023-02-26] MEDS: aspirin 81 mg Chew Tablet 324 MG PO (17:02)
[2023-02-26] MEDS: morphine 4 mg/mL SDV 1 mL IVP (17:09)
[2023-02-26] MEDS: ondansetron 2 mg/ML SDV 2 mL 4 MG IVP (17:09)
[2023-02-26 17:14] LABS: Basophils % 0.3 %; Eosinophils # 0.3 10^3/uL (0.0-0.8); Eosinophils % 3.4 %; Hematocrit 26.9 % (42.0-52.0); Hemoglobin 8.9 g/dL (11.7-16.6); Lymphocytes # 1.4 10^3/uL (0.8-4.8); Lymphocytes % 18.4 %; Mean Corpuscular HGB Conc 33.1 g/dL (30.0-36.0); Mean Corpuscular Hemoglobin 29.8 pg (28.0-34.0); Mean Platelet Volume 9.7 fL (7.4-10.4); Monocytes # 0.8 10^3/uL (0.2-0.9); Neutrophils # 4.95 10^3/uL (1.8-7.7); Neutrophils % 66.5 %; Nucleated Red Blood Cells % 0 %; Platelet Count 177 10^3/cmm (130-400); Red Blood Count 2.99 10^6/uL (4.1-5.3); Red Cell Distribution Width 17.9 % (12.1-15.1); White Blood Count 7.4 10^3/uL (4.0-10.0)
[2023-02-26 17:31] VITALS: BP 151/84; PULSE 72; RESP 12; O2SAT 95
[2023-02-26 17:43] LABS: Troponin(5th) Baseline 557 ng/L (0-15)
[2023-02-26 17:44] LABS: Alanine Aminotransferase 16 U/L (0-41); Albumin Level 3.1 g/dL (3.5-5.2); Alkaline Phosphatase 159 U/L (40-130); Aspartate Amino Transferase 22 U/L (0-40); Carbon Dioxide 26 mmol/L (22-29); Chloride 92 mmol/L (98-107); Globulin 2.4 g/dL (1.3-4.6); Glucose 176 mg/dL (65-115); Lipase 7 U/L (13-60); Potassium 3.5 mmol/L (3.5-5.1); Sodium 134 mmol/L (136-145); Total Protein 5.5 g/dL (6.6-8.7)
[2023-02-26 17:57] LABS: Anion Gap 18.5 (5-19)
[2023-02-26 18:07] VITALS: BP 152/73; PULSE 75; RESP 20; O2SAT 97
[2023-02-26 18:51] LABS: Blood Urea Nitrogen 38 mg/dL (8-23); Osmolality Calculated 291 mOsm/kg (285-295)
[2023-02-26 18:52] LABS: Calcium 8.7 mg/dL (8.5-10.5); Total Bilirubin 0.2 mg/dL (0.15-1.2)
--- NOTE | 2023-02-26 18:56 | ECG_ITS ---
[facility] Test Date: 2023-02-26 Pat Name: Anshu Hurt Department: Room: Gender: Male International Specialist: : 1950 Requested By: Clifton Seth Order Number: [id number] Murtaza MD: Gladys Hwang M.D. Measurements Intervals [place] Rate: 68 P: 61 MI: 242 QRS: -27 QRSD: 97 T: 168 QT: 447 QTc: 478 Interpretive Statements SINUS RHYTHM WITH FIRST DEGREE AV BLOCK BORDERLINE LEFT AXIS DEVIATION [QRS AXIS < -20] ST DEVIATION AND MODERATE T-WAVE ABNORMALITY, CONSIDER LATERAL ISCHEMIA [-0.1+ mV T-WAVE IN I/aVL/V5/V6] Compared to ECG 02/26/2023 16:34:31 T-wave abnormality now present Possible ischemia now present Left ventricular hypertrophy no longer present ST (T wave) deviation no longer present Electronically Signed On 02-27-2023 6:59:37 CDT by Gladys Hwang M.D. [email or web address]
[2023-02-26 19:21] LABS: NT Pro B Type Natriuretic Pept > 70000 pg/mL (0-125)
[2023-02-26 19:32] LABS: Troponin 5 2HR Delta -63.3 ABS# (0-10)
[2023-02-26 19:33] LABS: Troponin 5 2HR 493.7 ng/L (0-15)
[2023-02-26 19:41] VITALS: BP 155/75; PULSE 75
[2023-02-26] MEDS: nitroglycerin 1 gm/inch oint Pkt 1 INCH TOPICAL (19:41)
[2023-02-26 20:30] VITALS: BP 154/101; PULSE 72; RESP 12; O2SAT 93
[2023-02-26] MEDS: amlodipine 5 mg Tablet PO (20:34)
[2023-02-26] MEDS: metoprolol tartrate 25 mg Tablet PO (20:34)
== END 2023-02-26 20:37 | disposition home or self-care (01) ==
PROVIDERS: Emergency Medicine; Emergency Provider Family Medicine; PCP Family Medicine
DX: I25.119 Atherosclerotic heart disease of native coronary artery with unspecified angina pectoris (principal); I44.0 Atrioventricular block, first degree; I12.0 Hypertensive chronic kidney disease with stage 5 chronic kidney disease or end stage renal disease; E11.22 Type 2 diabetes mellitus with diabetic chronic kidney disease; N18.6 End stage renal disease; J44.9 Chronic obstructive pulmonary disease, unspecified; E78.5 Hyperlipidemia, unspecified; Z79.4 Long term (current) use of insulin; Z79.899 Other long term (current) drug therapy; Z87.891 Personal history of nicotine dependence
CPT/HCPCS: 36415; 71045; 80053; 83690; 83880; 84484; 85025; 93005; 96374; 96375; 99285; J2270; J2405

== ENCOUNTER → 2023-03-03 09:30 | Outpatient (BNVA) | payer MEDICARE, OTHER, SELFPAY | PROVIDERS: PCP Family Medicine; Visit Provider Internal Medicine Pulmonary Disease | DX: J96.12 Chronic respiratory failure with hypercapnia; J90 Pleural effusion, not elsewhere classified; Z87.891 Personal history of nicotine dependence | CPT/HCPCS: 99214 ==

== ENCOUNTER → 2023-03-17 08:17 | Outpatient (BNVA) | payer MEDICARE, OTHER, SELFPAY | PROVIDERS: PCP Family Medicine; Visit Provider Internal Medicine Pulmonary Disease | DX: J90 Pleural effusion, not elsewhere classified (principal); J96.12 Chronic respiratory failure with hypercapnia; Z87.891 Personal history of nicotine dependence; Z99.2 Dependence on renal dialysis; Z95.5 Presence of coronary angioplasty implant and graft | CPT/HCPCS: 99214 ==

== ENCOUNTER → 2023-05-11 08:36 | Outpatient (BNVA) | payer MEDICARE, OTHER, SELFPAY | PROVIDERS: PCP Family Medicine; Visit Provider Podiatrist Foot & Ankle Surgery | DX: E11.42 Type 2 diabetes mellitus with diabetic polyneuropathy (principal); L84 Corns and callosities; L60.3 Nail dystrophy; N18.5 Chronic kidney disease, stage 5; I73.9 Peripheral vascular disease, unspecified; E11.22 Type 2 diabetes mellitus with diabetic chronic kidney disease; M20.42 Other hammer toe(s) (acquired), left foot; M20.41 Other hammer toe(s) (acquired), right foot; Z79.4 Long term (current) use of insulin | CPT/HCPCS: 11055; 11721 ==

== ENCOUNTER 2023-06-13 12:32 | Emergency (ER) | payer MEDICARE, OTHER, SELFPAY ==
[2023-06-13 12:37] VITALS: PULSE 67; RESP 16; TEMP 36.3; O2SAT 97
--- NOTE | 2023-06-13 12:57 | CTR_ITS ---
PROCEDURE INFORMATION: Exam: CT Head Without Contrast Exam date and time: 06/13/2023 2:16 PM Age: 73 years old Clinical indication: Injury or trauma; Fall; Blunt trauma (contusions or hematomas) TECHNIQUE: Imaging protocol: Computed tomography of the head without contrast. Radiation optimization: All CT scans at this facility use at least one of these dose optimization techniques: automated exposure control; mA and/or kV adjustment per patient size (includes targeted exams where dose is matched to clinical indication); or iterative reconstruction. REPORTING DATA: Count of CT and Cardiac NM exams in prior 12 months: This patient has received 3 known CTs and 0 known cardiac nuclear medicine studies in the 12 months prior to the current study. COMPARISON: CT head wo con* [id number] 03/12/2022 9:13 PM RADIATION DOSE METRICS: Total DLP (mGy-cm): 1152.38 FINDINGS: Tubes, catheters and devices: Stable deep stimulating electrodes terminating in the bilateral basal ganglia. Brain: Mild nonspecific periventricular white matter disease. Mild cerebral atrophy. Intracranial atherosclerosis. No acute intracranial hemorrhage. No midline shift. Cerebral ventricles: Ventricles are normal in caliber. Paranasal sinuses: Mucosal thickening involving the right maxillary sinus and sphenoid sinuses. Mastoid air cells: Mastoid air cells are clear. Bones/joints: Stable man holes in the bilateral frontal cranium. Soft tissues: Superficial soft tissues are within normal limits. CT/CT head wo con* [id number] IMPRESSION: 1. No acute intracranial findings. 2. Stable positioning of deep stimulating electrodes. 3. Chronic paranasal sinus disease.
--- NOTE | 2023-06-13 14:04 | ED_ITS ---
HPI - Head Injury General: Chief complaint: Head Injury Stated complaint: fall/ hit head/right knee pain Time Seen by Provider: 06/13/23 12:57 Source: patient Mode of arrival: ambulatory History of Present Illness: 73-year-old male mechanical fall ground-level. 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 He hit right frontal region. No loss consciousness no nausea vomiting since the fall. Denies neck pain. MD Complaint: head injury Onset (ago): minute(s) Mechanism of Injury: fall Place: outdoors Loss of Consciousness: no Location of injury: frontal Severity: mild Other Injuries: none Associated symptoms: Deny amnesia, confusion, nausea, neck pain, numbness, syncope, tingling, vertigo, visual changes, vomiting or weakness Review of Systems Const: Denies: fever(s) or chills Card: Denies: syncope Resp: Denies: dyspnea GI: Denies: nausea or vomiting : Denies: dysuria, urinary frequency or urinary urgency Musc: Denies: neck pain Skin/Breast: Denies: rash Neuro: Denies: vertigo or confusion PFSH ED PFSH: Medical History Acute hypokalemia Bilateral wheezing Chest pain COPD exacerbation Coronary artery disease Coronary artery disease due to type 2 diabetes mellitus Depression Diabetes End stage renal disease ESRD (end stage renal disease) Essential tremor Gastroparesis Gout Hypercapnic respiratory failure Hyperlipidemia Hypertension Hypothyroidism (acquired) Lung entrapment Pancreatitis takes chronic pancrease Parkinsonian tremor Peritoneal dialysis catheter in place Pleural effusion Pneumonia Pneumonia Pulmonary nodule SOB (shortness of breath) Stage 5 chronic kidney disease Tremor Vitiligo Weakness Surgical History History of appendectomy History of carpal tunnel release left wrist 1974 History of cholecystectomy S/P CABG (coronary artery bypass graft) Family History Other CAD (coronary artery disease) Cancer Diabetes Hypertension Denies family history of Stroke Social History Smoking and tobacco/nicotine status: former use of tobacco/nicotine Quit status (tobacco/nicotine): has quit using Year quit tobacco: 1993 Former quit date comment: 2 ppd X 20 years Alcohol intake: never Substance/Drug Use: never Household members: spouse Marital status: Physical Exam Const: GENERAL APPEARANCE: cooperative and comfortable ORIENTATION/CONSCIOUSNESS: Yes awake, Yes oriented to person, Yes oriented to place and Yes oriented to time HENMT: COMMON NORMALS: normocephalic, atraumatic and hearing grossly normal bilaterally HEAD & SCALP: normocephalic and atraumatic Resp: COMMON NORMALS: normal respiratory effort, No retractions, No use of accessory muscles and clear to auscultation bilaterally AUSCULTATION: clear to auscultation bilaterally Cardio: COMMON NORMALS: regular rate, regular rhythm and No murmurs present (Cardio) RATE: regular rate RHYTHM: regular rhythm GI: COMMON NORMALS: Soft to palpation and No hepatosplenomegaly present AUSCULTATION: Yes normoactive bowel sounds PALPATION: Yes Soft to palpation, No Tenderness to palpation present (GI), No Guarding due to palpation present (GI) and Yes No hepatosplenomegaly present Extremity: COMMON NORMALS: normal to inspection, capillary refill normal, no clubbing, cyanosis or edema, no calf tenderness and no pedal edema Neuro: SENSORIUM/ORIENTATION: Yes oriented to person, Yes oriented to place a nd Yes oriented to time Skin: COMMON NORMALS: no rashes or lesions noted GENERAL SKIN EXAM: no rashes or lesions noted Course Vital Signs: Vital signs: Vital Signs Temperature 97.4 F L 06/13/23 12:37 Pulse Rate 67 06/13/23 12:37 Respiratory Rate 16 06/13/23 12:37 Pulse Oximetry 97 06/13/23 12:37 Oxygen Delivery Me thod Room Air 06/13/23 12:37 MDM - Head Injury Medcial Decision Making CT head negative. Discharge home follow-up as needed Medical Records I reviewed the patient's medical records. Lab Data I reviewed the patient's lab results. Radiology Impressions Head CT 06/13/23 12:57 IMPRESSION: 1. No acute intracranial findings. 2. Stable positioning of deep stimulating electrodes. 3. Chronic paranasal sinus disease. All radiology interpretation(s) finalized by discharge Discharge Plan Discharge Patient Disposition: Home Clinical Impression: Closed head injury, Fall Condition: Stable Prescriptions: No Action nitroglycerin [Nitrostat] 0.4 mg tablet, sublingual 0.4 mg SUBLINGUAL Q5M PRN (Reason: Chest Pain) Qty: 25 2RF Rx Instructions: do not exceed 3 doses per episode zolpidem [Ambien] 10 mg tablet PO sertraline [Zoloft] 50 mg tablet 50 mg PO DAILY clopidogrel 75 mg tablet 75 mg PO DAILY Bevespi Aerosphere 9-4.8 mcg HFA aerosol inhaler 2 puff inhalation BID Qty: 10.7 3RF Creon 12,000-38,000 -60,000 unit Capsule,Delayed Release(Dr/Ec) See Rx Instructions .ROUTE .COMPLEX Rx Instructions: 5 cap po with meals and 2-3 caps with snacks. levothyroxine [Euthyrox] 150 mcg Tablet 150 mcg PO QAM Rx Instructions: Take on an empty stomach sertraline 50 mg Tablet 75 mg PO QPM pregabalin [Lyrica] 150 mg Capsule 150 mg PO QPM calcium acetate(phosphat bind) 667 mg capsule See Rx Instructions .ROUTE .COMPLEX Rx Instructions: Take 4 caps PO with meals and 2 caps with snacks. (Do not exceed 16 caps per day). cholecalciferol (vitamin D3) 1,250 mcg (50,000 unit) capsule 50,000 unit PO Q7D Rx Instructions: on wed methocarbamol 500 mg Tablet 500 mg PO BID famotidine 20 mg tablet 20 mg PO DAILY metoprolol succinate 25 mg tablet extended release 24 hr 25 mg PO DAILY isosorbide mononitrate 120 mg tablet extended release 24 hr 120 mg PO DAILY Qty: 60 0RF oxycodone-acetaminophen 5-325 mg tablet 1 tab PO Q8H PRN (Reason: pain) Qty: 14 0RF albuterol sulfate 90 mcg/actuation HFA aerosol inhaler 1 - 2 puff INHALATION Q4H PRN (Reason: Shortness Of Breath) ropinirole 0.5 mg tablet 0.5 mg PO BEDTIME zolpidem 10 mg tablet 10 mg PO BEDTIME RenaPlex-D 800 mcg-12.5 mg -2,000 unit tablet 1 tab PO QAM naloxone 4 mg/actuation spray,non-aerosol See Rx Instructions .ROUTE .COMPLEX Rx Instructions: ADMINISTER A SINGLE SPRAY IN ONE NOSTRIL UPON SIGNS OF OPIOID OVERDOSE. CALL 911. REPEAT AFTER 3 MINUTES IF NO RESPONSE. atorvastatin 40 mg tablet 40 mg PO QPM 30 Days Qty: 30 3RF aspirin 81 mg Tablet,Delayed Release (Dr/Ec) 81 mg PO BEDTIME 30 Days Qty: 30 0RF insulin aspart U-100 [Novolog FlexPen U-100 Insulin] 100 unit/mL (3 mL) insulin pen See Rx Instructions .ROUTE .COMPLEX Qty: 15 0RF Rx Instructions: sliding scale tid insulin glargine [Basaglar KwikPen U-100 Insulin] 100 unit/mL (3 mL) Insulin Pen See Rx Instructions .ROUTE .COMPLEX Qty: 15 0RF Rx Instructions: 10 units according to bag used for dialysis amlodipine 5 mg tablet 5 mg PO DAILY Qty: 30 0RF Toprol XL 50 mg tablet extended release 24 hr 50 mg PO DAILY Qty: 30 0RF Discharge Orders: Discharge ED (Routine); Ordered 06/13/23 Ordered By: Dago Woodard Referrals: Kiran Reardon MD [Primary Care Provider] - Discharge Diet: Usual diet Discharge Activity: Increase activity as tolerated Patient Instructions: Opioid Safety, Pain Management Activity Restrictions/Additional Instructions: Thank you for choosing [facility] for your healthcare needs today. Please realize this is an emergency room and that we are providing you with a medical screening exam and this may not be complete and all inclusive of all the testing and or work up that you may need to determine your ailment or severity of your illness. It is very important that you follow up as instructed or that you return to the Emergency Department should you have concerns or if your condition changes or worsens in any way. You are seen today after a fall CT of your head was negative. Continue current medications no changes Coding Level of Care Code ED Research Biologist for Anatoliy Hickman
== END 2023-06-13 14:40 | disposition home or self-care (01) ==
PROVIDERS: Emergency Provider Family Medicine; PCP Family Medicine
DX: S09.8XXA Other specified injuries of head, initial encounter (principal); Z79.82 Long term (current) use of aspirin; Z79.4 Long term (current) use of insulin; J32.9 Chronic sinusitis, unspecified; Z87.891 Personal history of nicotine dependence; J44.9 Chronic obstructive pulmonary disease, unspecified; I25.10 Atherosclerotic heart disease of native coronary artery without angina pectoris; E11.22 Type 2 diabetes mellitus with diabetic chronic kidney disease; I13.11 Hypertensive heart and chronic kidney disease without heart failure, with stage 5 chronic kidney disease, or end stage renal disease; N18.6 End stage renal disease; E78.5 Hyperlipidemia, unspecified; G20.C Parkinsonism, unspecified; Z95.1 Presence of aortocoronary bypass graft; W01.0XXA Fall on same level from slipping, tripping and stumbling without subsequent striking against object, initial encounter
CPT/HCPCS: 70450; 99284

== ENCOUNTER 2023-06-21 02:04 | Emergency (ER) | payer MEDICARE, OTHER, SELFPAY ==
[2023-06-21] VITALS (12 sets, daily range): BP systolic 163–176; BP diastolic 85–115; PULSE 80–94; RESP 18–26; TEMP 36.4; O2SAT 92–97; BMI 25.1
--- NOTE | 2023-06-21 02:07 | ECG_ITS ---
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 Measurements Intervals [place] Rate: 94 P: 42 SC: 191 QRS: -31 QRSD: 94 T: 123 QT: 379 QTc: 476 Interpretive Statements SINUS RHYTHM LEFT AXIS DEVIATION [QRS AXIS < -30] LEFT VENTRICULAR HYPERTROPHY AND ST-T CHANGE [VOLTAGE CRITERIA PLUS ST/T ABNORMALITY] Compared to ECG 02/26/2023 18:51:23 Left ventricular hypertrophy now present ST (T wave) deviation now present First degree AV block no longer present T-wave abnormality no longer present Possible ischemia no longer present Electronically Signed On 06-21-2023 8:08:58 CORSET MAKER by Gladys Hwang M.D. [id number]
--- NOTE | 2023-06-21 02:46 | XRR_ITS ---
PROCEDURE INFORMATION: Exam: XR Chest Exam date and time: 06/21/2023 2:51 AM Age: 73 years old Clinical indication: Shortness of breath; Prior surgery; Surgery date: 6+ months; Surgery type: Cabg. Brain stimulator; Patient HX: C/O SOB. History of copd. TECHNIQUE: Imaging protocol: Radiologic exam of the chest. Views: 1 view. COMPARISON: CR (CHEST, ) 02/26/2023 5:17 PM FINDINGS: Tubes, catheters and devices: Sternal wires and mediastinal clips. Right carotid body stimulation device. Lungs: Dependent bibasilar atelectasis or consolidation, right worse than left. Minimal bilateral pulmonary edema. Stable benign 8 mm calcified granuloma in the left lung lower lobe. Pleural spaces: Small right pleural effusion. No pneumothorax or left pleural effusion. Heart/Mediastinum: Unremarkable. No cardiomegaly. Bones/joints: Unremarkable. XR/XR chest 1V portable [id number] IMPRESSION: 1. Dependent bibasilar atelectasis or consolidation, right worse than left. 2. Small right pleural effusion. 3. Minimal bilateral pulmonary edema. 4. Stable benign 8 mm calcified granuloma in the left lung lower lobe.
[2023-06-21 03:03] LABS: Basophils % 0.2 %; Eosinophils # 0.2 10^3/uL (0.0-0.8); Eosinophils % 1.8 %; Hematocrit 37.3 % (37-53); Lymphocytes # 1.5 10^3/uL (0.8-4.8); Lymphocytes % 17.8 %; Mean Corpuscular HGB Conc 31.9 g/dL (30-55); Mean Corpuscular Hemoglobin 30.3 pg (27-33); Mean Corpuscular Volume 94.9 fl (82-101); Mean Platelet Volume 10.4 fL (7.4-10.4); Monocytes # 0.7 10^3/uL (0.2-0.9); Monocytes % 8.2 %; Neutrophils # 5.82 10^3/uL (1.8-7.7); Neutrophils % 71.8 %; Nucleated Red Blood Cells % 0 %; Platelet Count 118 10^3/cmm (157-399); Red Blood Count 3.93 10^6/uL (3.85-5.65); Red Cell Distribution Width 15.9 % (12.1-15.1); White Blood Count 8.13 10^3/uL (3.29-11.43)
[2023-06-21] MEDS: ipratropium-albuterol 3 mL Neb INHALATION (03:14)
[2023-06-21 03:17] LABS: Alanine Aminotransferase 32 U/L (0-41); Albumin Level 2.9 g/dL (3.5-5.2); Alkaline Phosphatase 143 U/L (40-130); Aspartate Amino Transferase 30 U/L (0-40); Blood Urea Nitrogen 37 mg/dL (8-23); Calcium 7.8 mg/dL (8.5-10.5); Carbon Dioxide 22 mmol/L (22-29); Chloride 98 mmol/L (98-107); Globulin 2.8 g/dL (1.3-4.6); Glucose 155 mg/dL (65-115); Osmolality Calculated 294 mOsm/kg (285-295); Sodium 136 mmol/L (136-145); Total Bilirubin 0.3 mg/dL (0.15-1.2); Total Protein 5.7 g/dL (6.6-8.7)
[2023-06-21 03:22] LABS: Anion Gap 20.3 (5-19); Potassium 4.3 mmol/L (3.5-5.1)
[2023-06-21 03:27] LABS: ABG PCO2 37.5 mmHg (35-45); ABG PH Result 7.37 (7.35-7.45); Arterial Blood Gas Hematocrit 36.2 % (42-52); Blood Gas Sample Site Brachial, right; Blood Gas Sample Type Arterial; Carboxyhemoglobin 1.7 %THgb (0.4-20.1); HCO3 ABG 21.8 mmol/L (22-26); HGB O2 Sat 92.8 % (95-100); Methemoglobin 0.3 % (0.4-1.5); Oxygen Device ROOM AIR; PO2 ABG 76.5 mmHg (80.0-100.0); Total Hemoglobin 11.8 g/dL (14-18)
[2023-06-21 03:37] LABS: Magnesium 1.8 mg/dL (1.7-2.3)
--- NOTE | 2023-06-21 03:53 | ED_ITS ---
HPI - SOB/Dyspnea General: Chief Complaint: Shortness of Breath/Dyspnea Stated Complaint: sob Time Seen by Provider: 06/21/23 02:47 History of Present Illness: HPI Narrative: 73-year-old male gentleman with a history of end-stage renal disease on peritoneal dialysis. He presents with a 7 pound weight gain over the last 4 days or so, with increasing shortness of breath at home. He has oxygen at home which she does not normally use, and was requiring oxygen at home just to be more comfortable. He has had a dry cough. No fever. No sputum production. No increased lower extremity swelling per his history. Associated symptoms: Deny abdominal pain, chest pain, fever(s), nausea or vomiting Review of Systems Const: Denies: fever(s) or chills Eyes: Denies: change in vision ENMT: Denies: throat pain Card: Denies: chest pain Resp: Reports: dyspnea, non-productive cough and wheezing GI: Denies: abdominal pain, nausea or vomiting : Denies: flank pain PFSH ED PFSH: Medical History Acute hypokalemia Bilateral wheezing Chest pain COPD exacerbation Coronary artery disease Coronary artery disease due to type 2 diabetes mellitus Depression Diabetes End stage renal disease ESRD (end stage renal disease) Essential tremor Gastroparesis Gout Hypercapnic respiratory failure Hyperlipidemia Hypertension Hypothyroidism (acquired) Lung entrapment Pancreatitis takes chronic pancrease Parkinsonian tremor Peritoneal dialysis catheter in place Pleural effusion Pneumonia Pneumonia Pulmonary nodule SOB (shortness of breath) Stage 5 chronic kidney disease Tremor Vitiligo Weakness Surgical History History of appendectomy History of carpal tunnel release left wrist 1974 History of cholecystectomy S/P CABG (coronary artery bypass graft) Family History Other CAD (coronary artery disease) Cancer Diabetes Hypertension Denies family history of Stroke Social History Smoking and tobacco/nicotine status: former use of tobacco/nicotine Quit status (tobacco/nicotine): has quit using Year quit tobacco: 1993 Former quit date comment: 2 ppd X 20 years Alcohol intake: never Substance/Drug Use: never Household members: spouse Marital status: Physical Exam Const: GENERAL APPEARANCE: cooperative HENMT: COMMON NORMALS: normocephalic, atraumatic and Normal external nose present HEAD & SCALP: normocephalic and atraumatic FACE & SINUS: normal facial exam and face symmetric NOSE: Normal external nose present Eye: COMMON NORMALS: Equal, round and reactive pupils present and EOMs intact bilaterally PUPIL: Yes Equal, round and reactive pupils present Neck/C-Spine: GENERAL: Yes trachea midline Chest: CHEST: Yes Symmetrical chest wall rise Resp: COMMON NORMALS: No retractions and No use of accessory muscles EFFORT & INSPECTION: Yes symmetric chest movement, Yes tachypneic and Yes pursed lip breathing AUSCULTATION: rales and wheezes Cardio: COMMON NORMALS: regular rate and regular rhythm RATE: regular rate RHYTHM: regular rhythm GI: COMMON NORMALS: Normal to inspection, nondistended, normoactive bowel sounds present Extremity: COMMON NORMALS: no pedal edema Neuro: BREN COMA SCALE: document GCS findings Bren coma scale eye opening: Spontaneous Devon coma scale verbal response: Orientated Devon coma scale motor response: Obey commands Bren coma scale total score: 15 SENSORY EXAM: Yes extremities (intact) Psych: COMMON NORMALS: speech normal SPEECH: Yes normal speech Skin: COMMON NORMALS: no rashes or lesions noted GENERAL SKIN EXAM: no rashes or lesions noted Course Vital Signs: Vital signs: Vital Signs Temperature 97.5 F L 06/21/23 02:08 Pulse Rate 87 06/21/23 05:01 Respiratory Rate 19 H 06/21/23 05:01 Blood Pressure 163/114 06/21/23 05:04 Pulse Oximetry 92 06/21/23 05:01 Oxygen Delivery Me thod Room Air 06/21/23 04:31 MDM - SOB/Dyspnea Medical Decision Making Patient with saturations around 91%. Heart rate is 86. Blood pressure is hypertensive despite nitroglycerin administration of 164/100. Chest x-ray shows pulmonary edema with small right-sided pleural effusion. Blood gas shows a pH of 7.37 with a PCO2 of 38, and a PO2 of 77 on room air. Viral swab is pending. Lactic acid is 1. Liver enzymes are normal. After nebulizer treatment the patient is feeling much better. Discussed the findings on chest x-ray. His oxygenation has been good here, greater than 94% on room air. His respiratory rate is decreased. He still hypertensive. He is given clonidine for his hypertension. With findings of chest x-ray, and increase in weight of 7 pounds, discussed escalating his peritoneal dialysis to take more fluid off for the next 48 hours or so. The patient reports to me that he has swelling over his right yazidism which is very tender. This seems to be since his head injury last week, although he notes that there was no trauma directly to that area. Swelling is palpable with tenderness over the temporal artery. He is placed on a short course of steroid, as this may help his wheezing, as well as potentially temporal arteritis although this is less likely. Outpatient follow-up. Return for worsening symptoms. Lab Data 06/21/23 02:24 06/21/23 02:24 Labs/Radiology: Radiology Impressions Chest X-Ray 06/21/23 02:46 IMPRESSION: 1. Dependent bibasilar atelectasis or consolidation, right worse than left. 2. Small right pleural effusion. 3. Minimal bilateral pulmonary edema. 4. Stable benign 8 mm calcified granuloma in the left lung lower lobe. Laboratory Results WBC 8.13 10^3/uL (3.29-11.43) 06/21/23 02:24 RBC 3.93 10^6/uL (3.85-5.65) 06/21/23 02:24 Hgb 11.90 g/dL (11.27-16.99) 06/21/23 02:24 Hct 37.3 % (37-53) 06/21/23 02:24 MCV 94.9 fl (82-101) 06/21/23 02:24 MCH 30.3 pg (27-33) 06/21/23 02:24 MCHC 31.9 g/dL (30-55) 06/21/23 02:24 RDW 15.9 % (12.1-15.1) H 06/21/23 02:24 Plt Count 118 10^3/cmm (157-399) L 06/21/23 02:24 MPV 10.4 fL (7.4-10.4) 06/21/23 02:24 Neut % (Auto) 71.8 % 06/21/23 02:24 Lymph % (Auto) 17.8 % 06/21/23 02:24 Rush % (Auto) 8.2 % 06/21/23 02:24 Eos % (Auto) 1.8 % 06/21/23 02:24 Baso % (Auto) 0.2 % 06/21/23 02:24 Neut # (Auto) 5.82 10^3/uL (1.8-7.7) 06/21/23 02:24 Lymph # (Auto) 1.5 10^3/uL (0.8-4.8) 06/21/23 02:24 Rush # (Auto) 0.7 10^3/uL (0.2-0.9) 06/21/23 02:24 Eos # (Auto) 0.2 10^3/uL (0.0-0.8) 06/21/23 02:24 Baso # (Auto) 0.0 10^3/uL (0.0-0.1) 06/21/23 02:24 Nucleated RBC % (auto) 0 % 06/21/23 02:24 Nucleated RBCs # 0.0 /100WBC 06/21/23 02:24 Specimen Type Arterial 06/21/23 03:16 Sample Site Brachial, right 06/21/23 03:16 ABG pH 7.37 (7.35-7.45) 06/21/23 03:16 ABG pCO2 37.5 mmHg (35-45) 06/21/23 03:16 ABG pO2 76.5 mmHg (80.0-100.0) L 06/21/23 03:16 ABG HCO3 21.8 mmol/L (22-26) L 06/21/23 03:16 ABG Base Excess -3.0 mmol/L (-2.0-2.0) L 06/21/23 03:16 Jose Test N/a 06/21/23 03:16 Hematocrit 36.2 % (42-52) L 06/21/23 03:16 Hgb O2 Saturation 92.8 % (95-100) L 06/21/23 03:16 Carboxyhemoglobin 1.7 %THgb (0.4-20.1) 06/21/23 03:16 Methemoglobin 0.3 % (0.4-1.5) L 06/21/23 03:16 Total Hemoglobin 11.8 g/dL (14-18) L 06/21/23 03:16 O2 Delivery Device Room air 06/21/23 03:16 Computer Peripheral Equipment Operator ID [email or web address] 06/21/23 03:16 Sodium 136 mmol/L (136-145) 06/21/23 02:24 Potassium 4.3 mmol/L (3.5-5.1) 06/21/23 02:24 Chloride 98 mmol/L (98-107) 06/21/23 02:24 Carbon Dioxide 22 mmol/L (22-29) 06/21/23 02:24 Anion Gap 20.3 (5-19) H 06/21/23 02:24 BUN 37 mg/dL (8-23) H 06/21/23 02:24 Creatinine 7.4 mg/dL (0.7-1.2) H* 06/21/23 02:24 GFR Calculation Not Reportable 06/21/23 02:24 Glucose 155 mg/dL (65-115) H 06/21/23 02:24 Calculated Osmolality 294 mOsm/kg (285-295) 06/21/23 02:24 Lactic Acid 1.0 mmol/L (0.5-2.2) 06/21/23 02:24 Calcium 7.8 mg/dL (8.5-10.5) L 06/21/23 02:24 Magnesium 1.8 mg/dL (1.7-2.3) 06/21/23 02:24 Total Bilirubin 0.3 mg/dL (0.15-1.2) 06/21/23 02:24 AST 30 U/L (0-40) 06/21/23 02:24 ALT 32 U/L (0-41) 06/21/23 02:24 Alkaline Phosphatase 143 U/L (40-130) H 06/21/23 02:24 NT-Pro-B Natriuret Pep > 02585 pg/mL (0-125) H 06/21/23 02:24 Total Protein 5.7 g/dL (6.6-8.7) L 06/21/23 02:24 Albumin 2.9 g/dL (3.5-5.2) L 06/21/23 02:24 Globulin 2.8 g/dL (1.3-4.6) 06/21/23 02:24 All radiology interpretation(s) finalized by discharge Discharge Plan Discharge Patient Disposition: Home Clinical Impression: Hypertension, End-stage renal disease on peritoneal dialysis, Pulmonary edema Condition: Stable Prescriptions: New clonidine HCl 0.1 mg tablet 0.1 mg PO Q8H PRN (Reason: hypertensive emergency) Qty: 30 0RF prednisone 10 mg tablet 10 mg PO DAILY Qty: 7 0RF No Action nitroglycerin [Nitrostat] 0.4 mg tablet, sublingual 0.4 mg SUBLINGUAL Q5M PRN (Reason: Chest Pain) Qty: 25 2RF Rx Instructions: do not exceed 3 doses per episode zolpidem [Ambien] 10 mg tablet PO sertraline [Zoloft] 50 mg tablet 50 mg PO DAILY clopidogrel 75 mg tablet 75 mg PO DAILY Bevespi Aerosphere 9-4.8 mcg HFA aerosol inhaler 2 puff inhalation BID Qty: 10.7 3RF Creon 12,000-38,000 -60,000 unit Capsule,Delayed Release(Dr/Ec) See Rx Instructions .ROUTE .COMPLEX Rx Instructions: 5 cap po with meals and 2-3 caps with snacks. levothyroxine [Euthyrox] 150 mcg Tablet 150 mcg PO QAM Rx Instructions: Take on an empty stomach sertraline 50 mg Tablet 75 mg PO QPM pregabalin [Lyrica] 150 mg Capsule 150 mg PO QPM calcium acetate(phosphat bind) 667 mg capsule See Rx Instructions .ROUTE .COMPLEX Rx Instructions: Take 4 caps PO with meals and 2 caps with snacks. (Do not exceed 16 caps per day). cholecalciferol (vitamin D3) 1,250 mcg (50,000 unit) capsule 50,000 unit PO Q7D Rx Instructions: on wed methocarbamol 500 mg Tablet 500 mg PO BID famotidine 20 mg tablet 20 mg PO DAILY metoprolol succinate 25 mg tablet extended release 24 hr 25 mg PO DAILY isosorbide mononitrate 120 mg tablet extended release 24 hr 120 mg PO DAILY Qty: 60 0RF oxycodone-acetaminophen 5-325 mg tablet 1 tab PO Q8H PRN (Reason: pain) Qty: 14 0RF albuterol sulfate 90 mcg/actuation HFA aerosol inhaler 1 - 2 puff INHALATION Q4H PRN (Reason: Shortness Of Breath) ropinirole 0.5 mg tablet 0.5 mg PO BEDTIME zolpidem 10 mg tablet 10 mg PO BEDTIME RenaPlex-D 800 mcg-12.5 mg -2,000 unit tablet 1 tab PO QAM naloxone 4 mg/actuation spray,non-aerosol See Rx Instructions .ROUTE .COMPLEX Rx Instructions: ADMINISTER A SINGLE SPRAY IN ONE NOSTRIL UPON SIGNS OF OPIOID OVERDOSE. CALL 911. REPEAT AFTER 3 MINUTES IF NO RESPONSE. atorvastatin 40 mg tablet 40 mg PO QPM 30 Days Qty: 30 3RF aspirin 81 mg Tablet,Delayed Release (Dr/Ec) 81 mg PO BEDTIME 30 Days Qty: 30 0RF insulin aspart U-100 [Novolog FlexPen U-100 Insulin] 100 unit/mL (3 mL) insulin pen See Rx Instructions .ROUTE .COMPLEX Qty: 15 0RF Rx Instructions: sliding scale tid insulin glargine [Basaglar KwikPen U-100 Insulin] 100 unit/mL (3 mL) Insulin Pen See Rx Instructions .ROUTE .COMPLEX Qty: 15 0RF Rx Instructions: 10 units according to bag used for dialysis amlodipine 5 mg tablet 5 mg PO DAILY Qty: 30 0RF Toprol XL 50 mg tablet extended release 24 hr 50 mg PO DAILY Qty: 30 0RF Discharge Orders: Discharge ED (Routine); Ordered 06/21/23 Ordered By: Surya Prabhakar Referrals: Kiran Reardon MD [Primary Care Provider] - 1-3 days Patient Instructions: Pulmonary Edema (ED), Hypertension (ED), Opioid Safety, Pain Management Activity Restrictions/Additional Instructions: Escalate your peritoneal dialysis as we discussed in the room. This is to take the extra fluid off causing your pulmonary edema. Measure your blood pressure twice daily. Report numbers to your physician. If your blood pressure remains greater than 150/90, you may take the medication prescribed. Return for worsening shortness of breath despite treatment, fever, any other concerning symptoms. Use your nebulizer at least twice a day for the next 48 hours, then as needed. Coding Level of Care Code ED Research Interviewer for Anatoliy Hickman
[2023-06-21 04:05] LABS: NT Pro B Type Natriuretic Pept > 70000 pg/mL (0-125)
[2023-06-21] MEDS: nitroglycerin 1 gm/inch oint Pkt 1 INCH TOPICAL (04:12)
[2023-06-21] MEDS: cloNIDine 0.1 mg Tablet PO (05:04)
[2023-06-21] MEDS: dexamethasone 10 mg/mL INJ 6 MG IVP (05:05)
[2023-06-21 05:16] LABS: Adenovirus Not Detected (NOT DETECT); Chlamydia Pneumoniae Not Detected (NOT DETECT); Coronavirus 229E,HKU1,NL63,OC4 Not Detected (NOT DETECT); Human Metapneumovirus Not Detected (NOT DETECT); Human Rhinovirus/Enterovirus Not Detected (NOT DETECT); Influenza A Not Detected (NOT DETECT); Influenza A H1 Not Detected (NOT DETECT); Influenza A H1-2009 Not Detected (NOT DETECT); Influenza A H3 Not Detected (NOT DETECT); Influenza B Not Detected (NOT DETECT); Mycoplasma Pneumoniae Not Detected (NOT DETECT); Parainfluenza Virus Type 1 Not Detected (NOT DETECT); Parainfluenza Virus Type 2 Not Detected (NOT DETECT); Parainfluenza Virus Type 3 Not Detected (NOT DETECT); Parainfluenza Virus Type 4 Not Detected (NOT DETECT); Respiratory Syncytial Virus A Not Detected (NOT DETECT); Respiratory Syncytial Virus B Not Detected (NOT DETECT); SARS-COV-2 Not Detected (NOT DETECT)
== END 2023-06-21 05:21 | disposition home or self-care (01) ==
PROVIDERS: Emergency Provider Emergency Medicine; PCP Family Medicine
DX: J81.1 Chronic pulmonary edema (principal); I12.0 Hypertensive chronic kidney disease with stage 5 chronic kidney disease or end stage renal disease; E11.22 Type 2 diabetes mellitus with diabetic chronic kidney disease; N18.6 End stage renal disease; Z99.2 Dependence on renal dialysis; J44.9 Chronic obstructive pulmonary disease, unspecified; I25.10 Atherosclerotic heart disease of native coronary artery without angina pectoris; E78.5 Hyperlipidemia, unspecified; G20.C Parkinsonism, unspecified; Z95.1 Presence of aortocoronary bypass graft; Z87.891 Personal history of nicotine dependence; Z79.02 Long term (current) use of antithrombotics/antiplatelets; Z79.82 Long term (current) use of aspirin; Z79.4 Long term (current) use of insulin
CPT/HCPCS: 36600; 71045; 80053; 82805; 83605; 83735; 83880; 85025; 87486; 87581; 87633; 93005; 94640; 99285; J1100

== ENCOUNTER 2023-06-26 16:46 | Inpatient (IN) | payer MEDICARE, OTHER, SELFPAY ==
[2023-06-26 16:56] VITALS: BP 159/75; PULSE 69; RESP 18; TEMP 36.5; O2SAT 97; BMI 25.1
--- NOTE | 2023-06-26 17:55 | XRR_ITS ---
PROCEDURE INFORMATION: Exam: XR Chest Exam date and time: 06/26/2023 6:26 PM Age: 73 years old Clinical indication: Shortness of breath; Prior surgery; Surgery date: 6+ months; Patient HX: SOB; Posterior chest pain; Copd; Smoker x 20yrs; Cabg 12/2022 TECHNIQUE: Imaging protocol: Radiologic exam of the chest. Views: 1 view. COMPARISON: CR (CHEST, ) 06/21/2023 2:51 AM FINDINGS: Tubes, catheters and devices: Generator projects over the right mid chest with electrodes directed cephalad. Lungs: Persistent heterogeneous opacity at the right lung base. Previously seen reticular opacities at the left base have improved but not completely resolved. Pleural spaces: There is a right pleural effusion which may be tracking into the major fissure, adding to the right basilar opacity. Heart/Mediastinum: Cardiac silhouette is normal in size for technique. Vasculature: Mediastinal surgical clips and vascular markers suggest prior myocardial revascularization. Bones/joints: Age appropriate. XR/XR chest 1V 92500 IMPRESSION: 1. Improving but not resolved left basilar reticular opacities. 2. Persistent opacity at the right lung base. There is probably right pleural fluid tracking into the major fissure which contributes to overall density at the right base.
[2023-06-26 18:17] LABS: Eosinophils % 0.1 %; Hematocrit 35.9 % (37-53); Lymphocytes # 0.4 10^3/uL (0.8-4.8); Lymphocytes % 5.6 %; Mean Corpuscular Hemoglobin 29.6 pg (27-33); Mean Corpuscular Volume 92.5 fl (82-101); Mean Platelet Volume 10.3 fL (7.4-10.4); Monocytes # 0.3 10^3/uL (0.2-0.9); Monocytes % 4.1 %; Neutrophils # 6.05 10^3/uL (1.8-7.7); Neutrophils % 89.6 %; Nucleated Red Blood Cells % 0 %; Platelet Count 125 10^3/cmm (157-399); Red Blood Count 3.88 10^6/uL (3.85-5.65); White Blood Count 6.76 10^3/uL (3.29-11.43)
[2023-06-26 18:47] LABS: Troponin(5th) Baseline 241 ng/L (0-15)
[2023-06-26 18:52] LABS: Alanine Aminotransferase 59 U/L (0-41); Albumin Level 3.1 g/dL (3.5-5.2); Alkaline Phosphatase 130 U/L (40-130); Anion Gap 21.2 (5-19); Aspartate Amino Transferase 70 U/L (0-40); Blood Urea Nitrogen 38 mg/dL (8-23); Calcium 7.9 mg/dL (8.5-10.5); Carbon Dioxide 23 mmol/L (22-29); Chloride 93 mmol/L (98-107); Glucose 309 mg/dL (65-115); Osmolality Calculated 295 mOsm/kg (285-295); Potassium 5.2 mmol/L (3.5-5.1); Sodium 132 mmol/L (136-145); Total Bilirubin 0.3 mg/dL (0.15-1.2); Total Protein 5.1 g/dL (6.6-8.7)
[2023-06-26 19:22] LABS: NT Pro B Type Natriuretic Pept > 70000 pg/mL (0-125)
--- NOTE | 2023-06-26 19:48 | ECG_ITS ---
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 Measurements Intervals [place] Rate: 73 P: 0 MT: 0 QRS: -27 QRSD: 95 T: 124 QT: 439 QTc: 485 Interpretive Statements ATRIAL FIBRILLATION BORDERLINE LEFT AXIS DEVIATION [QRS AXIS < -20] POSSIBLE RIGHT VENTRICULAR CONDUCTION DELAY [RSR (QR) IN V1/V2] VOLTAGE CRITERIA FOR LVH [MEETS CRITERIA IN ONE OF: R(aVL), S(V1), R(V5), R(V5/V6)+S(V1)] MODERATE T-WAVE ABNORMALITY, CONSIDER LATERAL ISCHEMIA [-0.1+ mV T-WAVE IN I/aVL/V5/V6] Compared to ECG 06/21/2023 02:07:15 T-wave abnormality now present Possible ischemia now present Sinus rhythm no longer present ST (T wave) deviation no longer present Electronically Signed On 06-27-2023 22:17:03 MEDIA MARKETING DIRECTOR by Lucius Stapleton M.D. [id number]
[2023-06-26 20:24] VITALS: BP 146/107; PULSE 79; RESP 16; O2SAT 94
[2023-06-26 20:25] LABS: Troponin 5 2HR 236.7 ng/L (0-15); Troponin 5 2HR Delta -4.3 ABS# (0-10)
[2023-06-26 21:03] VITALS: BP 158/87; PULSE 70; RESP 16; O2SAT 96
[2023-06-26] MEDS: piperacillin-tazobactam 4.5 GM in sodium chloride 0.9% (plus) 50 ML IV (21:36)
--- NOTE | 2023-06-26 21:54 | ED_ITS ---
HPI - Chest Pain General: Chief Complaint: Chest Pain Stated Complaint: Cp, discomfort, SOB Time Seen by Provider: 06/26/23 19:23 History of Present Illness: 73-year-old male with history of end-stage renal disease on dialysis. He presents with worsening shortness of breath. He was seen last weekend, placed on steroids, and told to increase off take of his fluid. Despite this, he has continued to be short of breath. He has had a mild cough. He has right greater than left-sided leg edema that has worsened. Associated symptoms: Reports dyspnea; Deny abdominal pain, fever(s), nausea, palpitations or vomiting Review of Systems Const: Denies: fever(s), chills or body aches Eyes: Denies: change in vision Card: Reports: chest pain; Denies: palpitations Resp: Reports: dyspnea; Denies: productive cough, non-productive cough or wheezing GI: Denies: abdominal pain, nausea, vomiting, diarrhea or hematochezia Skin/Breast: Denies: rash Neuro: Denies: headache(s), weakness in extremities, dizziness or confusion PFSH ED PFSH: Medical History Acute hypokalemia Bilateral wheezing Chest pain COPD exacerbation Coronary artery disease Coronary artery disease due to type 2 diabetes mellitus Depression Diabetes ESRD (end stage renal disease) Essential tremor Finger amputation, no complication Gastroparesis Gout Hypercapnic respiratory failure Hyperlipidemia Hypertension Hypothyroidism (acquired) Lung entrapment Pancreatitis takes chronic pancrease Parkinsonian tremor Peritoneal dialysis catheter in place Pleural effusion Pneumonia Pulmonary nodule Restrictive lung disease SOB (shortness of breath) Stage 5 chronic kidney disease Tremor Vitiligo Weakness Surgical History History of appendectomy History of carpal tunnel release left wrist 1974 History of cholecystectomy S/P CABG (coronary artery bypass graft) Family History Other CAD (coronary artery disease) Cancer Diabetes Hypertension Denies family history of Stroke Social History Smoking and tobacco/nicotine status: former use of tobacco/nicotine Quit status (tobacco/nicotine): has quit using Year quit tobacco: 1993 Former quit date comment: 2 ppd X 20 years Alcohol intake: never Substance/Drug Use: never Household members: spouse Marital status: Physical Exam Const: COMMON NORMALS: no acute distress GENERAL APPEARANCE: cooperative; not ill appearing and not frail appearing HENMT: COMMON NORMALS: normocephalic, atraumatic and Normal external nose present HEAD & SCALP: normocephalic and atraumatic FACE & SINUS: normal facial exam and face symmetric NOSE: Normal external nose present Eye: COMMON NORMALS: Equal, round and reactive pupils present and EOMs intact bilaterally PUPIL: Yes Equal, round and reactive pupils present Neck/C-Spine: GENERAL: Yes trachea midline Chest: CHEST: Yes Symmetrical chest wall rise Resp: COMMON NORMALS: No retractions, No use of accessory muscles and clear to auscultation bilaterally EFFORT & INSPECTION: Yes symmetric chest movement, Yes tachypneic and Yes labored AUSCULTATION: clear to auscultation bilaterally and diminished lung sounds Cardio: COMMON NORMALS: regular rate and regular rhythm RATE: regular rate RHYTHM: regular rhythm GI: COMMON NORMALS: Normal to inspection, nondistended, normoactive bowel sounds present Extremity: GENERAL: Yes edema Neuro: BREN COMA SCALE: document GCS findings Bren coma scale eye opening: Spontaneous Bren coma scale verbal response: Orientated [place] coma scale motor response: Obey commands [place] coma scale total score: 15 SENSORY EXAM: Yes extremities (intact) Psych: COMMON NORMALS: speech normal SPEECH: Yes normal speech Skin: COMMON NORMALS: no rashes or lesions noted GENERAL SKIN EXAM: no rashes or lesions noted Course Vital Signs: Vital signs: Vital Signs Temperature 97.6 F 06/27/23 16:00 Pulse Rate 70 06/27/23 16:00 Respiratory Rate 17 06/27/23 16:00 Blood Pressure 142/73 06/27/23 16:00 Pulse Oximetry 93 06/27/23 16:00 Oxygen Delivery Me thod Room Air 06/27/23 16:00 MDM - Chest Pain Medical Decision Making 73-year-old male with shortness of breath and chest discomfort. He has failed outpatient management in terms of fluid removal with peritoneal dialysis. He is worsening/more dense right-sided chest pleural effusion. His potassium is 5.2. Creatinine is 7. He has significant orthopnea. CTA of the chest is pending. Ultrasound of the right leg, given the asymmetrical swelling is pending. He will be observed. Hospitalist will see the patient. Nephrology has been consulted. Lab Data 06/27/23 01:30 06/27/23 01:30 Radiology Impressions Chest X-Ray 06/26/23 17:55 IMPRESSION: 1. Improving but not resolved left basilar reticular opacities. 2. Persistent opacity at the right lung base. There is probably right pleural fluid tracking into the major fissure which contributes to overall density at the right base. Chest CTA 06/26/23 22:29 IMPRESSION: 1. No findings acute pulmonary embolism. 2. There is cardiomegaly with pulmonary venous distension. No interstitial edema. 3. Changes of myocardial revascularization are noted. Median sternotomy has not healed. Correlate with timing of surgery. No bony destructive change is evident. 4. Bilateral pleural effusions. Pleural fluid on the right extends into the major and minor fissures, potentially loculated. No significant residual atelectasis at the right lung base. 5. Cirrhosis with ascites. Venous Duplex 06/26/23 23:28 IMPRESSION: No evidence of acute deep venous thrombosis in either lower extremity. Laboratory Results WBC 6.76 10^3/uL (3.29-11.43) 06/26/23 18:07 RBC 3.88 10^6/uL (3.85-5.65) 06/26/23 18:07 Hgb 11.50 g/dL (11.27-16.99) 06/26/23 18:07 Hct 35.9 % (37-53) L 06/26/23 18:07 MCV 92.5 fl (82-101) 06/26/23 18:07 MCH 29.6 pg (27-33) 06/26/23 18:07 MCHC 32.0 g/dL (30-55) 06/26/23 18:07 RDW 15.0 % (12.1-15.1) 06/26/23 18:07 Plt Count 125 10^3/cmm (157-399) L 06/26/23 18:07 MPV 10.3 fL (7.4-10.4) 06/26/23 18:07 Neut % (Auto) 89.6 % 06/26/23 18:07 Lymph % (Auto) 5.6 % 06/26/23 18:07 [place] % (Auto) 4.1 % 06/26/23 18:07 Eos % (Auto) 0.1 % 06/26/23 18:07 Baso % (Auto) 0.0 % 06/26/23 18:07 Neut # (Auto) 6.05 10^3/uL (1.8-7.7) 06/26/23 18:07 Lymph # (Auto) 0.4 10^3/uL (0.8-4.8) L 06/26/23 18:07 [place] # (Auto) 0.3 10^3/uL (0.2-0.9) 06/26/23 18:07 Eos # (Auto) 0.0 10^3/uL (0.0-0.8) 06/26/23 18:07 Baso # (Auto) 0.0 10^3/uL (0.0-0.1) 06/26/23 18:07 Nucleated RBC % (auto) 0 % 06/26/23 18:07 Nucleated RBCs # 0.0 /100WBC 06/26/23 18:07 Sodium 132 mmol/L (136-145) L 06/26/23 18:07 Potassium 5.2 mmol/L (3.5-5.1) H 06/26/23 18:07 Chloride 93 mmol/L (98-107) L 06/26/23 18:07 Carbon Dioxide 23 mmol/L (22-29) 06/26/23 18:07 Anion Gap 21.2 (5-19) H 06/26/23 18:07 BUN 38 mg/dL (8-23) H 06/26/23 18:07 Creatinine 7.0 mg/dL (0.7-1.2) H* 06/26/23 18:07 GFR Calculation Not Reportable 06/26/23 18:07 Glucose 309 mg/dL (65-115) H 06/26/23 18:07 Calculated Osmolality 295 mOsm/kg (285-295) 06/26/23 18:07 Lactic Acid 1.3 mmol/L (0.5-2.2) 06/26/23 21:34 Calcium 7.9 mg/dL (8.5-10.5) L 06/26/23 18:07 Total Bilirubin 0.3 mg/dL (0.15-1.2) 06/26/23 18:07 AST 70 U/L (0-40) H 06/26/23 18:07 ALT 59 U/L (0-41) H 06/26/23 18:07 Alkaline Phosphatase 130 U/L (40-130) 06/26/23 18:07 Troponin T Baseline 241 ng/L (0-15) H* 06/26/23 18:07 Troponin T 120 Minute 236.7 ng/L (0-15) H 06/26/23 19:46 Delta Troponin T -4.3 ABS# (0-10) L 06/26/23 19:46 Troponin T Hi Sens 6Hr 236.2 ng/L (0-15) H 06/26/23 01:30 Troponin T Hi Sens 6Hr Delta -4.80 ng/L (0-12) L 06/26/23 01:30 NT-Pro-B Natriuret Pep > 72260 pg/mL (0-125) H 06/26/23 18:07 Total Protein 5.1 g/dL (6.6-8.7) L 06/26/23 18:07 Albumin 3.1 g/dL (3.5-5.2) L 06/26/23 18:07 Globulin 2.0 g/dL (1.3-4.6) 06/26/23 18:07 Procalcitonin 0.67 ng/mL (0-0.5) H 06/26/23 00:00 TSH 9.16 uIU/mL (0.27-4.20) H 06/26/23 00:00 Nasal Influ A H1 2008 PCR Not detected (NOT DETECT) 06/26/23 21:52 Adenovirus (PCR) Not detected (NOT DETECT) 06/26/23 21:52 C. pneumoniae DNA (PCR) Not detected (NOT DETECT) 06/26/23 21:52 Coronavirus 229E (PCR) Not detected (NOT DETECT) 06/26/23 21:52 Human Metapneumovir PCR Not detected (NOT DETECT) 06/26/23 21:52 Influenza A (H1) PCR Not detected (NOT DETECT) 06/26/23 21:52 Influenza A (H3) PCR Not detected (NOT DETECT) 06/26/23 21:52 Influenza Type A (PCR) Not detected (NOT DETECT) 06/26/23 21:52 Influenza Type B (PCR) Not detected (NOT DETECT) 06/26/23 21:52 M. pneumoniae (PCR) Not detected (NOT DETECT) 06/26/23 21:52 Parainfluenza 1 (PCR) Not detected (NOT DETECT) 06/26/23 21:52 Parainfluenza 2 (PCR) Not detected (NOT DETECT) 06/26/23 21:52 Parainfluenza 3 (PCR) Not detected (NOT DETECT) 06/26/23 21:52 Parainfluenza 4 (PCR) Not detected (NOT DETECT) 06/26/23 21:52 RSV Type A (PCR) Not detected (NOT DETECT) 06/26/23 21:52 RSV Type B (PCR) Not detected (NOT DETECT) 06/26/23 21:52 Entero/Rhino (PCR) Not detected (NOT DETECT) 06/26/23 21:52 SARS-CoV-2 (PCR) Not detected (NOT DETECT) 06/26/23 21:52 All radiology interpretation(s) finalized by discharge Discharge Plan Discharge Patient Disposition: Admitted As Inpatient Admit Provider: Rik Guevara Clinical Impression: Hypertension, Adult failure to thrive, ESRD (end stage renal disease), Pulmonary edema Condition: Stable Coding Level of Care Code ED [employer] for Anatoliy Hickman
[2023-06-26 22:08] LABS: Lactic Sepsis W/Reflex 1.3 mmol/L (0.5-2.2)
--- NOTE | 2023-06-26 22:29 | CTR_ITS ---
PROCEDURE INFORMATION: Exam: CTA Chest With Contrast Exam date and time: 06/26/2023 10:58 PM Age: 73 years old Clinical indication: Pain; Shortness of breath; Chest pressure; Prior surgery; Surgery date: 6+ months; Surgery type: Cabg. Brain stimulator; Patient HX: Cp with SOB and baseline/2hr trop over 200. History of end stage ckd with peritoneal dialysis. ; Additional info: Chest pain TECHNIQUE: Imaging protocol: Computed tomographic angiography of the chest with contrast. Exam focused on the arteries. 3D rendering (Not supervised by radiologist): MIP and/or 3D reconstructed images were created by the technologist. Radiation optimization: All CT scans at this facility use at least one of these dose optimization techniques: automated exposure control; mA and/or kV adjustment per patient size (includes targeted exams where dose is matched to clinical indication); or iterative reconstruction. Contrast material: OMNI 350; Contrast volume: 128 ml; Contrast route: INTRAVENOUS (IV); REPORTING DATA: Count of CT and Cardiac NM exams in prior 12 months: This patient has received 4 known CTs and 0 known cardiac nuclear medicine studies in the 12 months prior to the current study. COMPARISON: CT angio chest PE protcl [id number] 04/22/2022 11:10 PM RADIATION DOSE METRICS: Total DLP (mGy-cm): 771.93 FINDINGS: Pulmonary arteries: Normal. No pulmonary emboli. Great vessels off aortic arch: Bovine branching pattern the aortic arch. Aorta: Ascending aorta measures up to 3.7 cm. Moderate calcific plaque noted throughout the aorta and branch vessels. Veins: Moderate pulmonary venous distension. Lungs: Right pleural fluid tracks into the major and minor fissures. Scattered calcified pulmonary granulomas. Mild basilar bronchial wall thickening. No airspace disease. Pleural spaces: Bilateral pleural effusions. Heart: Four-chamber cardiomegaly with particular prominence of the left ventricle. Aortic valve leaflet and annulus calcifications. Coronary arteries: Extensive coronary artery calcification is demonstrated. Lymph nodes: Unremarkable. No enlarged lymph nodes. Liver: Cirrhotic morphology of the liver. Spleen: Scattered splenic calcifications. Adrenal glands: Normal adrenals. Intraperitoneal space: Ascites noted in the upper abdomen. Bones/joints: There has been prior median sternotomy which has not healed. No evidence of acute fracture or aggressive bony lesion. Soft tissues: There is a right-sided subcutaneous generator with electrodes extending toward the head. CT/CT angio chest PE protcl [id number] IMPRESSION: 1. No findings acute pulmonary embolism. 2. There is cardiomegaly with pulmonary venous distension. No interstitial edema. 3. Changes of myocardial revascularization are noted. Median sternotomy has not healed. Correlate with timing of surgery. No bony destructive change is evident. 4. Bilateral pleural effusions. Pleural fluid on the right extends into the major and minor fissures, potentially loculated. No significant residual atelectasis at the right lung base. 5. Cirrhosis with ascites.
[2023-06-26] MEDS: iohexol 350 mg/mL 500 mL Btl (per mL) IV (23:10)
--- NOTE | 2023-06-26 23:28 | USR_ITS ---
PROCEDURE INFORMATION: Exam: US Duplex Right Lower Extremity Veins, Limited Exam date and time: 06/26/2023 11:39 PM Age: 73 years old Clinical indication: Swelling (edema) of limb; Lower extremity, right; Additional info: Le edema and pain TECHNIQUE: Imaging protocol: Real-time duplex ultrasound of the right extremity with 2-D cai scale, color Doppler flow and spectral waveform analysis including responses to compression and other maneuvers (when performed) with image documentation. Limited exam was focused on the right lower extremity veins. COMPARISON: CT ang ches abdpel [id number] 03/09/2022 5:49 PM FINDINGS: Right deep veins: Unremarkable. The common femoral, femoral, proximal profunda femoral and popliteal veins are patent without thrombus. Normal Doppler waveforms. Normal compressibility and/or augmentation response. Superficial veins: Unremarkable. Saphenofemoral junction is patent without thrombus. Soft tissues: Unremarkable. US/[place] [id number] IMPRESSION: No evidence of acute deep venous thrombosis in either lower extremity.
[2023-06-26 23:45] VITALS: BP 158/87; PULSE 70; RESP 16; TEMP 36.5; O2SAT 96
[2023-06-26 23:52] LABS: Adenovirus Not Detected (NOT DETECT); Chlamydia Pneumoniae Not Detected (NOT DETECT); Coronavirus 229E,HKU1,NL63,OC4 Not Detected (NOT DETECT); Human Metapneumovirus Not Detected (NOT DETECT); Human Rhinovirus/Enterovirus Not Detected (NOT DETECT); Influenza A Not Detected (NOT DETECT); Influenza A H1 Not Detected (NOT DETECT); Influenza A H1-2009 Not Detected (NOT DETECT); Influenza A H3 Not Detected (NOT DETECT); Influenza B Not Detected (NOT DETECT); Mycoplasma Pneumoniae Not Detected (NOT DETECT); Parainfluenza Virus Type 1 Not Detected (NOT DETECT); Parainfluenza Virus Type 2 Not Detected (NOT DETECT); Parainfluenza Virus Type 3 Not Detected (NOT DETECT); Parainfluenza Virus Type 4 Not Detected (NOT DETECT); Respiratory Syncytial Virus A Not Detected (NOT DETECT); Respiratory Syncytial Virus B Not Detected (NOT DETECT); SARS-COV-2 Not Detected (NOT DETECT)
--- NOTE | 2023-06-26 23:54 | PM.HP ---
Providers/Chief Complaint Admitting Physician: Rik Guevara MD Primary Care Provider: Irene Jones Chief Complaint: Cp, discomfort, SOB History of Present Illness Anshu Hurt is a 73 year old male with past medical history of end-stage renal disease on peritoneal dialysis CAD post recent CABG in last 6 months for left main vessel disease, hypertension, systolic congestive heart failure with last known EF of 45%, frequent thoracentesis who came to the ER for worsening difficulty in breathing. As per the patient he was diagnosed of pneumonia few weeks ago which has been improving but his difficulty in breathing has been worsening. He states breathing gets worse on laying down and for last few weeks he has not been able to sleep because as soon as he sleeps he feels as if he is choking. Patient denies any chest pain. His session of peritoneal dialysis has been changed recently and has become more aggressive. 5 Giurgius carry the blood pressure and input and output charting with her currently show that more recently within last 2 weeks he has gained around 20 pounds of weight, his systolic blood pressures have been on the higher side recently Review of Systems General: Reports: 10 or more systems reviewed and unremarkable except in HPI and below Const: Denies: fever(s), chills, body aches, change in appetite, change in weight, malaise, night sweats, diaphoresis, change in sleep pattern, daytime sleepiness or snoring Eyes: Denies: change in vision, blurry vision, photophobia, eye discomfort or eye discharge ENMT: Denies: throat pain, enlarged tonsils, hoarseness, mouth pain, oral sores, dry mouth, tinnitus, nasal congestion or post nasal drip Card: Denies: chest pain, palpitations, irregular heart rhythm, edema, swelling of feet/ankles, lightheadedness, syncope, pre-syncope, dyspnea on exertion, orthopnea, leg pain with exertion or acrocyanosis Resp: Denies: dyspnea, productive cough, non-productive cough, wheezing, stridor, pain on inspiration, change in phlegm color, hemoptysis or chest congestion GI: Denies: abdominal pain, nausea, vomiting, hematemesis, coffee ground emesis, dysphagia, heartburn, diarrhea, constipation, bloating, GI cramping, change in bowel habits, pain on defecation, hematochezia or melena : Denies: flank pain, difficulty urinating, dysuria, urinary frequency, urinary urgency, urinary hesitancy, urinary dribbling, difficulty starting urination, change in urine stream, nocturia or hematuria Musc: Denies: neck pain, back pain, extremity pain, joint pain, joint swelling, joint redness, joint stiffness or limited range of motion Neuro: Denies: headache(s), numbness in extremities, weakness in extremities, sensory changes, lack of coordination, difficulty walking, frequent falls, dizziness, vertigo, confusion, Slurred speech present, difficulty communicating thoughts or seizure-like activity Psych: Denies: anxiety, depression, mood swings, panic attacks, hopelessness or irritability Endo: Denies: polyuria, polydipsia, tired all the time, cold intolerance, excessive sweating, flushing or heat intolerance Carlos/Lymph: Denies: easy bruising or easy bleeding All/Imm: Denies: tongue swelling, facial swelling or acute wheezing Medications/Allergies Home Medications Medication Instructions Recorded Confirmed Last Taken Type calcium acetate(phosphat bind) 667 See Rx Instructions .Route .COMPLEX 02/18/22 06/26/23 06/26/23 History mg capsule cholecalciferol (vitamin D3) 1,250 50,000 unit PO Q7D 02/18/22 06/26/23 06/23/23 History mcg (50,000 unit) capsule levothyroxine 150 mcg tablet 150 mcg PO QAM 02/18/22 06/26/23 06/26/23 History (Euthyrox) [id number] See Rx Instructions .Route .COMPLEX 02/18/22 06/26/23 06/26/23 History 12,000-38,000-60,000 unit capsule,delayed rel (Creon) pregabalin 150 mg capsule (Lyrica) 150 mg PO QPM 02/18/22 06/26/23 1 Day Ago History ~06/25/23 sertraline 50 mg tablet 75 mg PO QPM 02/18/22 06/26/23 1 Day Ago History ~06/25/23 nitroglycerin 0.4 mg sublingual 0.4 mg sublingual Q5M PRN Chest 04/15/22 06/26/23 Unknown Rx tablet (Nitrostat) Pain #25 tabs glycopyrrolate 9 mcg-formoterol 2 puff inhalation BID #10.7 grams 12/19/22 06/26/23 01/30/23 Rx 4.8 mcg HFA aerosol inhaler (Bevespi Aerosphere) albuterol sulfate 90 mcg/actuation 1 - 2 puff inhalation Q4H PRN 12/28/22 06/26/23 Unknown History aerosol inhaler Shortness Of Breath naloxone 4 mg/actuation nasal spray See Rx Instructions .Route .COMPLEX 12/28/22 06/26/23 Unknown History ropinirole 0.5 mg tablet 0.5 mg PO BID PRN Restless Leg(S) 12/28/22 06/26/23 1 Day Ago History ~06/25/23 vit B,C-folic ac 800 mcg-zinc 12.5 1 tab PO QAM 12/28/22 06/26/23 06/26/23 History mg-selen-D3 2,000 unit-vit E tablet (RenaPlex-D) zolpidem 10 mg tablet 10 mg PO BEDTIME 12/28/22 06/26/23 1 Day Ago History ~06/25/23 atorvastatin 40 mg tablet 40 mg PO QPM 30 days #30 tabs 12/29/22 06/26/23 1 Day Ago Rx ~06/25/23 insulin aspart U-100 100 unit/mL See Rx Instructions .Route 12/29/22 06/26/23 06/26/23 Rx (3 mL) subcutaneous pen (Novolog .COMPLEX #15 mL FlexPen U-100 Insulin aspart) famotidine 20 mg tablet 20 mg PO QPM 01/30/23 06/26/23 1 Day Ago History ~06/25/23 metoprolol succinate 25 mg 25 mg PO DAILY 01/30/23 06/26/23 06/26/23 History tablet,extended release 24 hr isosorbide mononitrate 120 mg 120 mg PO DAILY #60 tabs 02/01/23 06/26/23 06/26/23 Rx tablet,extended release 24 hr oxycodone-acetaminophen 5 mg-325 1 tab PO Q8H PRN pain #14 tabs 02/01/23 06/26/23 Unknown Rx mg tablet clopidogrel 75 mg tablet 75 mg PO QPM 02/12/23 06/26/23 1 Day Ago History ~06/25/23 clonidine HCl 0.1 mg tablet 0.1 mg PO Q8H PRN hypertensive 06/21/23 06/26/23 Unknown Rx emergency #30 tabs amlodipine 5 mg tablet 5 mg PO QPM 06/26/23 06/26/23 1 Day Ago History ~06/25/23 aspirin 81 mg tablet,delayed 81 mg PO QPM 06/26/23 06/26/23 1 Day Ago History release ~06/25/23 insulin glargine 100 unit/mL (3 See Rx Instructions .Route .COMPLEX 06/26/23 06/26/23 1 Day Ago History mL) subcutaneous pen (Basaglar ~06/25/23 KwikPen U-100 Insulin) potassium chloride 20 mEq 20 meq PO DAILY 06/26/23 06/26/23 06/26/23 History tablet,extended release Allergies Allergy/AdvReac Type Severity Reaction Status Date / Time carbidopa [From Sinemet] Allergy ADR-Halluci Verified 06/26/23 23:22 nating levodopa [From Sinemet] Allergy ADR-Halluci Verified 06/26/23 23:22 nating PFSH Acute PFSH: Medical History (Updated 06/27/23 @ 00:03 by Rik Guevara MD) Acute hypokalemia Bilateral wheezing Chest pain COPD exacerbation Coronary artery disease Coronary artery disease due to type 2 diabetes mellitus Depression Diabetes ESRD (end stage renal disease) Essential tremor Finger amputation, no complication Gastroparesis Gout Hypercapnic respiratory failure Hyperlipidemia Hypertension Hypothyroidism (acquired) Lung entrapment Pancreatitis takes chronic pancrease Parkinsonian tremor Peritoneal dialysis catheter in place Pleural effusion Pneumonia Pulmonary nodule Restrictive lung disease SOB (shortness of breath) Stage 5 chronic kidney disease Tremor Vitiligo Weakness Surgical History History of appendectomy History of carpal tunnel release left wrist 1974 History of cholecystectomy S/P CABG (coronary artery bypass graft) Family History Other CAD (coronary artery disease) Cancer Diabetes Hypertension Denies family history of Stroke Social History Smoking and tobacco/nicotine status: former use of tobacco/nicotine Quit status (tobacco/nicotine): has quit using Year quit tobacco: 1993 Former quit date comment: 2 ppd X 20 years Alcohol intake: never Substance/Drug Use: never Household members: spouse Marital status: Vitals/I&O/Wt Last Vital Signs Temp 97.7 F 06/26/23 23:45 Pulse 70 06/26/23 23:45 Resp 16 06/26/23 23:45 BP 158/87 06/26/23 23:45 Pulse Ox 96 06/26/23 23:45 O2 Del Method Room Air 06/26/23 23:04 06/26/23 06/26/23 06/27/23 14:59 22:59 06:59 Intake Total 50 / 50 Balance 50 / 50 Weight last 48 hrs Weight 81.647 kg Physical Exam Narrative: General: No acute distress, AO x3, chronically sick appearing HEENT: PERRLA, pupils bilaterally equal and reactive Chest: Normal vesicular breath sounds, no added sounds, equal good air entry bilaterally CVS: S1-S2 regular, no murmurs, no tachycardia, no gallops, no rubs Abdomen: Soft, nontender, no organomegaly, bowel sounds present Neuro: No focal deficits, no facial deformity, AO x3, power 5/5 in all limbs Data 06/26/23 18:07 06/26/23 18:07 Micro: Microbiology 06/26/23 21:29 Blood Culture - Preliminary Blood SPECIMEN COLLECTED 06/26/23 21:34 Blood Culture - Preliminary Blood SPECIMEN COLLECTED A&P Assessment and plan (1) SOB (shortness of breath): Insetting of congestive systolic heart failure leading to pulmonary edema due to inadequate dialysis. Patient does peritoneal dialysis at home. Oxygen supplementation keeping saturation over 90%. DuoNebs every 6 hour. Patient does have bilateral pleural effusion. Seems to be chronic. Patient has had recurrent thoracentesis in the past. No signs of infection for now. Does not have any leukocytosis, no fever. For now we will hold off on IV antibiotics. Check respiratory viral panel. Check sputum culture, procalcitonin. If patient has fever will start on antibiotics for hospital-acquired pneumonia. Check CTA (2) Pulmonary edema: (3) Congestive heart failure: Last known EF of 45% in 12/29 with mild MR, mild TR. Strict input output charting, daily weights. (4) End-stage renal disease on peritoneal dialysis: Nephrology consulted from the ER. Continue with current peritoneal dialysis. Most likely patient will need to be switched to hemodialysis given inadequate dialysis, increased body weight of 20 pounds in the last 10 days, increased blood pressure recently. Discussed in detail with patient. Patient does not want to go over hemodialysis and would rather go hospice if hemodialysis is required. Have advised patient discussed in detail with nephrology. Continue other chronic home medications. Monitor BMP daily. (5) S/P CABG (coronary artery bypass graft): Within the last 6 months. Continue with home dose of aspirin, statin, Plavix. (6) Hypertension: Goal blood pressure less than 140/90 mmHg. Blood pressures as per the has been trending up. For now continue with home dose of amlodipine 5 mg, clonidine 0.1 every 8 as needed, Imdur 120 mg daily, metoprolol succinate 25 mg daily. Uptitrate as for goal blood pressures. (7) Adult failure to thrive: Plan CODE STATUS: Discussed in detail with patient. He does not want any heroic measures. DNR/DNI. He wants to continue with peritoneal dialysis for now. In case he requires hemodialysis he would rather go hospice. Heparin 5000 every 12 hourly for DVT prophylaxis Protonix for PUD prophylaxis Renal dialysis diet Attestations Medical Necessity Statement*: Requires hospitalization for more than 2 midnights for management of congestive systolic heart failure in setting of end-stage renal disease on peritoneal dialysis as patient might require to be transitioned to hemodialysis, hypertension Diagnoses SOB (shortness of breath) R06.02 Pulmonary edema J81.1 Congestive heart failure I50.9 End-stage renal disease on peritoneal dialysis N18.6; Z99.2 S/P CABG (coronary artery bypass graft) Z95.1 Hypertension I10 Adult failure to thrive R62.7
--- NOTE | 2023-06-26 23:59 | PC.NURSE ---
Patient states he took his morning pills, but has not had his evening pills. Patient is asking for his evening pills. Dr. Guevara notified.
[2023-06-27] VITALS (17 sets, daily range): BP systolic 107–152; BP diastolic 60–82; PULSE 62–82; RESP 17–19; TEMP 36.3–36.6; O2SAT 92–97; BMI 25.2
[2023-06-27] MEDS: pregabalin 150 mg Capsule PO (00:43)
[2023-06-27] MEDS: atorvastatin 40 mg Tablet PO ×2 (00:43→18:08)
[2023-06-27] MEDS: aspirin 81 mg EC Tablet PO ×2 (00:43→18:10)
[2023-06-27] MEDS: amlodipine 5 mg Tablet PO ×2 (00:43→18:09)
[2023-06-27] MEDS: clopidogrel 75 mg Tablet PO ×2 (00:43→18:10)
[2023-06-27] MEDS: sertraline 50 mg Tablet 75 MG PO ×2 (00:43→18:08)
[2023-06-27] MEDS: pantoprazole DR 40 mg Tablet PO ×2 (00:43→18:10)
[2023-06-27] MEDS: heparin 5,000 unit/mL INJ 1 mL 5000 UNIT SUBCUT ×2 (00:44→23:44)
[2023-06-27 00:50] LABS: Thyroid Stimulating Hormone 9.16 uIU/mL (0.27-4.20)
[2023-06-27 00:51] LABS: Procalcitonin 0.67 ng/mL (0-0.5)
[2023-06-27 02:21] LABS: Troponin 5 6HR 236.2 ng/L (0-15)
[2023-06-27] MEDS: ipratropium-albuterol 3 mL Neb INHALATION ×4 (02:37→20:58)
[2023-06-27 03:01] LABS: Chol HDL Ratio 1.64 mg/dL (1.0-5.00); Cholesterol 156 mg/dL (0-200); HDL Cholesterol 95 mg/dL (60-100); LDL Cholesterol Calculated 45 mg/dL (50-129); LDL HDL Ratio 0.47 RATIO (0.00-3.22); Triglycerides 78 mg/dL (0-150)
[2023-06-27 03:05] LABS: Estmated Average Glucose 143; Hemoglobin A1C 6.6 % (4.0-6.0)
[2023-06-27 03:08] LABS: Free T4 Free Thyroxine 0.75 ng/dL (0.82-1.77)
[2023-06-27] MEDS: zolpidem 5 mg Tablet 10 MG PO ×2 (03:23→20:32)
[2023-06-27 05:28] LABS: Basophils % 0.1 %; Eosinophils # 0.1 10^3/uL (0.0-0.8); Hematocrit 37.3 % (37-53); Lymphocytes # 0.9 10^3/uL (0.8-4.8); Mean Corpuscular HGB Conc 31.9 g/dL (30-55); Mean Corpuscular Hemoglobin 29.8 pg (27-33); Mean Corpuscular Volume 93.3 fl (82-101); Mean Platelet Volume 11.4 fL (7.4-10.4); Monocytes # 0.5 10^3/uL (0.2-0.9); Monocytes % 6.7 %; Neutrophils # 5.51 10^3/uL (1.8-7.7); Neutrophils % 78.8 %; Nucleated Red Blood Cells % 0 %; Platelet Count 135 10^3/cmm (157-399); Red Cell Distribution Width 14.9 % (12.1-15.1)
[2023-06-27 05:39] LABS: Alanine Aminotransferase 57 U/L (0-41); Albumin Level 2.9 g/dL (3.5-5.2); Alkaline Phosphatase 120 U/L (40-130); Anion Gap 23.4 (5-19); Aspartate Amino Transferase 64 U/L (0-40); Blood Urea Nitrogen 40 mg/dL (8-23); Calcium 8.1 mg/dL (8.5-10.5); Carbon Dioxide 20 mmol/L (22-29); Chloride 94 mmol/L (98-107); Globulin 2.7 g/dL (1.3-4.6); Glucose 169 mg/dL (65-115); Magnesium 1.6 mg/dL (1.7-2.3); Osmolality Calculated 290 mOsm/kg (285-295); Phosphorus 6.8 mg/dL (2.5-4.5); Potassium 4.4 mmol/L (3.5-5.1); Sodium 133 mmol/L (136-145); Total Bilirubin 0.4 mg/dL (0.15-1.2); Total Protein 5.6 g/dL (6.6-8.7)
[2023-06-27] MEDS: levothyroxine 150 mcg Tablet PO (06:07)
[2023-06-27] MEDS: FUROsemide 10 mg/mL SDV 10mL 80 MG IVP (06:07)
--- NOTE | 2023-06-27 07:53 | PM.CONSULT ---
Providers/Reason For Consult Consulting Physician/Specialty*: Sharon Hauser DO, telenephrology Reason for Consult*: ESRD, volume overload Requesting Physician: Rony Duran MD Attending Physician: Rony Duran MD Primary Care Provider: Irene Jones History of Present Illness History of Present Illness Anshu Hurt is a 73 year old male admitted with CHF, volume overload, 20# weight gain in 11 days. Was using all 1.5% dianeal, changed to 2.5% a couple of days ago. Used 2.5% and 4.25% 2 nights ago (UF 3384 ml), and all 4,25% last night (UF 3111 ml). Dwells with icodextrin during day. at bedside, performs PD exchanges, giving basaglar at HS. Makes minimal urine (< 1/2 cup daily). No improvement with IV lasix. Feels much better today. Review of Systems Neuro: Reports: other (+ new myoclonic jerks, tremors) Medications/Allergies Home Medications Medication Instructions Recorded Confirmed Last Taken Type calcium acetate(phosphat bind) 667 See Rx Instructions .Route .COMPLEX 02/18/22 06/26/23 06/26/23 History mg capsule cholecalciferol (vitamin D3) 1,250 50,000 unit PO Q7D 02/18/22 06/26/23 06/23/23 History mcg (50,000 unit) capsule levothyroxine 150 mcg tablet 150 mcg PO QAM 02/18/22 06/26/23 06/26/23 History (Euthyrox) [id number] See Rx Instructions .Route .COMPLEX 02/18/22 06/26/23 06/26/23 History 12,000-38,000-60,000 unit capsule,delayed rel (Creon) pregabalin 150 mg capsule (Lyrica) 150 mg PO QPM 02/18/22 06/26/23 1 Day Ago History ~06/25/23 sertraline 50 mg tablet 75 mg PO QPM 02/18/22 06/26/23 1 Day Ago History ~06/25/23 nitroglycerin 0.4 mg sublingual 0.4 mg sublingual Q5M PRN Chest 04/15/22 06/26/23 Unknown Rx tablet (Nitrostat) Pain #25 tabs glycopyrrolate 9 mcg-formoterol 2 puff inhalation BID #10.7 grams 12/19/22 06/26/23 01/30/23 Rx 4.8 mcg HFA aerosol inhaler (Bevespi Aerosphere) albuterol sulfate 90 mcg/actuation 1 - 2 puff inhalation Q4H PRN 12/28/22 06/26/23 Unknown History aerosol inhaler Shortness Of Breath naloxone 4 mg/actuation nasal spray See Rx Instructions .Route .COMPLEX 12/28/22 06/26/23 Unknown History ropinirole 0.5 mg tablet 0.5 mg PO BID PRN Restless Leg(S) 12/28/22 06/26/23 1 Day Ago History ~06/25/23 vit B,C-folic ac 800 mcg-zinc 12.5 1 tab PO QAM 12/28/22 06/26/23 06/26/23 History mg-selen-D3 2,000 unit-vit E tablet (RenaPlex-D) zolpidem 10 mg tablet 10 mg PO BEDTIME 12/28/22 06/26/23 1 Day Ago History ~06/25/23 atorvastatin 40 mg tablet 40 mg PO QPM 30 days #30 tabs 12/29/22 06/26/23 1 Day Ago Rx ~06/25/23 insulin aspart U-100 100 unit/mL See Rx Instructions .Route 12/29/22 06/26/23 06/26/23 Rx (3 mL) subcutaneous pen (Novolog .COMPLEX #15 mL FlexPen U-100 Insulin aspart) famotidine 20 mg tablet 20 mg PO QPM 01/30/23 06/26/23 1 Day Ago History ~06/25/23 metoprolol succinate 25 mg 25 mg PO DAILY 01/30/23 06/26/23 06/26/23 History tablet,extended release 24 hr isosorbide mononitrate 120 mg 120 mg PO DAILY #60 tabs 02/01/23 06/26/23 06/26/23 Rx tablet,extended release 24 hr oxycodone-acetaminophen 5 mg-325 1 tab PO Q8H PRN pain #14 tabs 02/01/23 06/26/23 Unknown Rx mg tablet clopidogrel 75 mg tablet 75 mg PO QPM 02/12/23 06/26/23 1 Day Ago History ~06/25/23 clonidine HCl 0.1 mg tablet 0.1 mg PO Q8H PRN hypertensive 06/21/23 06/26/23 Unknown Rx emergency #30 tabs amlodipine 5 mg tablet 5 mg PO QPM 06/26/23 06/26/23 1 Day Ago History ~06/25/23 aspirin 81 mg tablet,delayed 81 mg PO QPM 06/26/23 06/26/23 1 Day Ago History release ~06/25/23 insulin glargine 100 unit/mL (3 See Rx Instructions .Route .COMPLEX 06/26/23 06/26/23 1 Day Ago History mL) subcutaneous pen (Basaglar ~06/25/23 KwikPen U-100 Insulin) potassium chloride 20 mEq 20 meq PO DAILY 06/26/23 06/26/23 06/26/23 History tablet,extended release Allergies Allergy/AdvReac Type Severity Reaction Status Date / Time carbidopa [From Sinemet] Allergy ADR-Halluci Verified 06/26/23 23:22 nating levodopa [From Sinemet] Allergy ADR-Halluci Verified 06/26/23 23:22 nating Current Medications Generic Name Dose Route Start Last Admin Trade Name Freq PRN Reason Stop Dose Admin Albuterol/Ipratropium 3 ml 06/27/23 02:00 06/27/23 02:37 Ipratropium-Albuterol 3 Ml Neb INHALATION 3 ml Q6H.RESP SHAMAR Administration Amlodipine Besylate 5 mg 06/27/23 00:15 06/27/23 00:43 Amlodipine 5 Mg Tablet PO 5 mg QPM SHAMAR Administration Aspirin 81 mg 06/27/23 00:04 06/27/23 00:43 Aspirin 81 Mg Ec Tablet PO 81 mg QPM SHAMAR Administration Atorvastatin Calcium 40 mg 06/27/23 00:15 06/27/23 00:43 Atorvastatin 40 Mg Tablet PO 40 mg QPM SHAMAR Administration Clopidogrel Bisulfate 75 mg 06/27/23 00:15 06/27/23 00:43 Clopidogrel 75 Mg Tablet PO 75 mg QPM SHAMAR Administration Furosemide 80 mg 06/27/23 05:30 06/27/23 06:07 Furosemide 10 Mg/Ml Sdv 10ml IVP 80 mg Q12H SHAMAR Administration Heparin Sodium (Porcine) 5,000 unit 06/27/23 00:00 06/27/23 00:44 Heparin 5,000 Unit/Ml Inj 1 Ml SUBCUT 5,000 unit Q12H SHAMAR Administration Levothyroxine Sodium 150 mcg 06/27/23 06:00 06/27/23 06:07 Levothyroxine 150 Mcg Tablet PO 150 mcg QAM SHAMAR Administration Non-Formulary Medication 1 tab 06/27/23 06:00 06/27/23 06:06 Vit B,P-Lq-Ystd-Selen-Vit D3-E [Renaplex-D] PO Not Given QAM SHAMAR Pantoprazole Sodium 40 mg 06/27/23 00:06 06/27/23 00:[address] 40 Mg Tablet PO 40 mg QPM SHAMAR Administration Pregabalin 150 mg 06/27/23 00:15 06/27/23 00:43 Pregabalin 150 Mg Capsule PO 150 mg QPM SHAMAR Administration Sertraline HCl 75 mg 06/27/23 00:05 06/27/23 00:43 Sertraline 50 Mg Tablet PO 75 mg QPM SHAMAR Administration Zolpidem Tartrate 10 mg 06/27/23 02:46 06/27/23 03:23 Zolpidem 5 Mg Tablet PO 10 mg BEDTIME SHAMAR Administration PFSH Acute PFSH: Medical History Acute hypokalemia Bilateral wheezing Chest pain COPD exacerbation Coronary artery disease Coronary artery disease due to type 2 diabetes mellitus Depression Diabetes ESRD (end stage renal disease) Essential tremor Finger amputation, no complication Gastroparesis Gout Hypercapnic respiratory failure Hyperlipidemia Hypertension Hypothyroidism (acquired) Lung entrapment Pancreatitis takes chronic pancrease Parkinsonian tremor Peritoneal dialysis catheter in place Pleural effusion Pneumonia Pulmonary nodule Restrictive lung disease SOB (shortness of breath) Stage 5 chronic kidney disease Tremor Vitiligo Weakness Surgical History History of appendectomy History of carpal tunnel release left wrist 1975 History of cholecystectomy S/P CABG (coronary artery bypass graft) Family History Other CAD (coronary artery disease) Cancer Diabetes Hypertension Denies family history of Stroke Social History Smoking and tobacco/nicotine status: former use of tobacco/nicotine Quit status (tobacco/nicotine): has quit using Year quit tobacco: 1993 Former quit date comment: 2 ppd X 20 years Alcohol intake: never Substance/Drug Use: never Household members: spouse Marital status: Vitals/I&O/Wt Last Vital Signs Temp 97.7 F 06/27/23 04:00 Pulse 82 06/27/23 05:18 Resp 18 06/27/23 04:00 BP 134/76 06/27/23 04:00 Pulse Ox 97 06/27/23 04:00 O2 Del Method Room Air 06/27/23 02:40 06/26/23 06/27/23 06/27/23 22:59 06:59 14:59 Intake Total 50 / 50 Balance 50 / 50 Weight last 48 hrs Weight 81.873 kg Weight 81.647 kg Physical Exam Const: COMMON NORMALS: alert Extremity: NARRATIVE EXTREMITY EXAM: no edema left leg, trace right leg Neuro: SENSORIUM/ORIENTATION: Yes alert Data 06/27/23 01:30 06/27/23 01:30 Other Labs: HbA1C 6.6%, BNP > 70,000 Ca 8.1, alb 2.9, iraj 9 phos 6.8, Mg 1.5 Micro: Microbiology 06/26/23 21:29 Blood Culture - Preliminary Blood SPECIMEN COLLECTED 06/26/23 21:34 Blood Culture - Preliminary Blood SPECIMEN COLLECTED CTA Chest: Radiologist's impression: 1. No findings acute pulmonary embolism. 2. ? There is cardiomegaly with pulmonary venous distension. No interstitial edema. 3. ? Changes of myocardial revascularization are noted. Median sternotomy has not healed. Correlate with timing of surgery. No bony destructive change is evident. 4. ? Bilateral pleural effusions. Pleural fluid on the right extends into the major and minor fissures, potentially loculated. No significant residual atelectasis at the right lung base. 5. ? Cirrhosis with ascites. CXR: Radiologist's impression: 1. ? Improving but not resolved left basilar reticular opacities. 2. ? Persistent opacity at the right lung base. There is probably right pleural fluid tracking into the major fissure which contributes to overall density at the right base. Echo: Radiologist's impression: 12/2022: LV systolic function is mildly reduced with EF of 40 to 45%.? ?Mild global hypokinesis.? Compared to prior echocardiogram from ?12/28/2022, LV systolic function is mildly reduced. ABG Interpretation 1: 06/21/23 RA: 7. Other data: verbal consent for consult obtained from patient, seen via telemedicine with assistance of RN at bedside A&P Assessment and plan (1) ESRD (end stage renal disease): Plan 1. ESRD on peritoneal dialysis 2. Volume overload: improving, use 2.5% and 4.25% tonight. Monitor BS due to risk of hyerglycemia 3. Poor nutrition: add protein supplements 4. Mild hyponatremia due to volume overload 5. Hyperphosphatemia, resume calcium acetate 6. Myoclonic jerks, tremors, possibly uremic. Recommend reduced pregabalin dose I had a detailed discussion with Anshu and his . I asked him to reconsider trial of HD if we are unable to maintain acceptable volume status on peritoneal dialysis. At this time he is not agreeable to hemodialysis. He would like to keep his appointment with outpatient insurance claims supervisor scheduled on WednesdayJun 29 Consult Attestations Medical Necessity Statement: see above Time Spent in Patient Care: Greater than 35 minutes Coding Level of Care Code Acute Code for Chg Fwd Diagnoses ESRD (end stage renal disease) N18.6
[2023-06-27] MEDS: metoprolol succinate ER (24 HR) 25 mg Tablet PO (09:31)
[2023-06-27] MEDS: isosorbide mononitrate ER 60 mg Tablet 120 MG PO (09:31)
--- OUTSIDE RECORDS SUMMARY | 2023-06-27 14:54 | XMS_ITS | Patient Health Record ---
Author Name Unknown Organization [facility] Main Address [address] [place] [address], [place] [address] Care Team Providers Care Hr Director Name Role Phone REARDONHELENA Primary Care Provider BEYESPINOZA FRANCE Unavailable [phone] KULWINDERRAINER BENÍTEZ Unavailable [phone] IRINA VAZQUEZ Unavailable [phone] ALLERGIES No Known Allergies RESULTS Component Value Reference Range Notes Thyroid Stimulating Hormone (TSH) Reviewed date:05/17/2023 10:55:18 AM Interpretation: Performing Lab: Notes/Report: Draw Location: [facility] Prior Testing performed at: [address] [place] [address] CLIA ID [id number] TSH3 6.50 0.50-4.30 uIU/mL Vitamin B12 Reviewed date:05/17/2023 10:55:18 AM Interpretation:Normal Performing Lab: Notes/Report: Draw Location: [facility] Prior Testing performed at: [address] [place] [address] CLIA ID [id number] LABS ARE FROM 02/11 TELEPHONE ENCOUNTER B12 638 610-7097 pg/mL Microalbumin Reviewed date:05/17/2023 10:55:18 AM Interpretation:High Performing Lab: Notes/Report: Draw Location: [facility] Prior Items were attached to this order: MALB Testing performed at: [address] [place] [address] CLIA ID [id number] Albumin 150 mg/L <30 mg/L Creatinine 50 mg/dL 10-300 mg/dL ALB/CREA >300 mg/g High Abnormal 30 mg/g Normal Normal <30mg/g Microalbuminuria 30-300mg/g Clinical Albuminuria >/= 300mg/g Complete Blood Count w/ Auto Diff (CBC) Reviewed date:05/17/2023 10:55:18 AM Interpretation: Performing Lab: Notes/Report: Draw Location: [facility] Prior Testing performed at: [address] [place] [address] CLIA ID [id number] WBC 7.8 4.0-10.8 10^3/uL RBC 2.68 4.40-6.00 10^6/uL HGB 8.5 14.0-18.0 g/dL HCT 25.1 40.0-52.0 % MCV 94 80-97 fL MCH 32 27-33 pg MCHC 34 32-36 g/dL PLT 163 150-450 10^3/uL RDW 17.2 6.5-16.0 % MPV 9.0 7.4-10.5 fL NEUT% 72.3 40.0-80.0 % LYMPH% 22.7 20.0-45.0 % MIXED% 5.0 0.1-10.0 % This is a combi nation of Monocytes, Eosinophils, and Basophils. NEUT# 5.6 1.6-8.7 10^3/uL LYMPH# 1.8 0.8-5.0 10^3/uL MIXED# 0.4 0.1-1.2 10^3/uL This is a co mbination of Monocytes, Eosinophils, and Basophils. Hemoglobin A1C (HbA1C) Reviewed date:05/17/2023 10:55:18 AM Interpretation: Performing Lab: Notes/Report: Draw Location: [facility] Prior Testing performed at: [address] [place] [address] CLIA ID [id number] A1C 6.7 0.0-6.0 % eAG 146 This result is derived from a formula used by the [place] [employer]. Comprehensive Metabolic Pane l (CMP) Reviewed date:05/17/2023 10:55:18 AM Interpretation: Performing Lab: Notes/Report: Draw Location: [facility] Prior Testing performed at: [address] [place] [address] CLIA ID [id number] GLU 247 70-110 mg/dL Non-Fasting Glu cose range is 75-150 mg/dL BUN 33 9-21 mg/dL CREA 8.4 0.7-1.2 mg/dL Results have b een verified by repeat analysis and given to and read back by Ilana Licea on 05/14/2023 at 14:42 by Lois Roblero (CREA) eGFRAA 8 66-127 mL/min/1.73m2 eGFRNAA 6 55-105 mL/min/1.73m2 BUN/CREA 4 NA 132 137-149 mmol/L K 3.4 3.6-5.2 mmol/L CL 94 98-109 mmol/L CO2 25 26-34 mmol/L Ca 8.1 8.4-10.5 mg/dL AGAP 13 TP 5.6 6.3-8.5 g/dL ALB 2.8 3.3-4.7 g/dL GLOB 2.8 2.4-3.5 g/dL A/G 1.0 1.1-1.5 Ratio ALKP 111 38-126 U/L AST 40 6-40 U/L ALTV 49 4-50 U/L TBIL 0.5 0.2-1.3 mg/dL VITAMIN D 25-OH, TOTAL IA (r egular Vit D) Reviewed date:05/19/2023 07:08:24 AM Interpretation: Performing Lab: Notes/Report: Draw Location: [facility] 6hrs Prior [facility] Testing performed at: [place], [facility], [address] [place] [address], [phone], Pie Maker Machine: Bhavik Fine PhD [facility] Collection Date/Time: [id number] [facility] Results Received Date/Time: [id number] [facility] Reported Date/Time: [id number] VITAMIN D,25-OH,TOTAL,IA 60 30-100 ng/mL Vitamin D Status 25-OH Vitamin D: Deficiency: <20 ng/mL Insufficiency: 20 - 29 ng/mL Optimal: > or = 30 ng/mL For 25-OH Vitamin D testing on patients on D2-supplementation and patients for whom quantitation of D2 and D3 fractions is required, the QuestAssureD(TM) 25-OH VIT D, (D2,D3), LC/MS/MS is recommended: order code 03749 (patients >2yrs). See Note 1 Note 1 For additional information, please refer to http://education.FL3XX/faq/ LMQ560 (This link is being provided for informational/ educational purposes only.) IRON TOTAL Reviewed date:05/19/2023 07:08:24 AM Interpretation: Performing Lab: Notes/Report: Draw Location: [facility] Prior [facility] Testing performed at: [address], [address] [place] [address], [phone], Pie Maker Machine: Lesa Jacobsen MD [facility] Collection Date/Time: [id number] [facility] Results Received Date/Time: [facility] Reported Date/Time: [id number] FE 78 49-181 ug/dL X-ray: Chest , PA and Lat (R OUTINE) Reviewed date:06/24/2023 01:38:30 PM Interpretation: Performing Lab: Notes/Report: X-ray: Chest , PA and Lat (R OUTINE) Reviewed date:07/14/2022 06:28:35 AM Interpretation: Performing Lab: Notes/Report: Influenza A/B Reviewed date:08/05/2022 04:30:08 PM Interpretation: Performing Lab: Notes/Report: Draw Location: [facility] Testing performed at: [address] [address] CLIA ID [id number] FLUA negative Negative FLUB negative Negative X-ray: Chest , PA and Lat (R OUTINE) Reviewed date:08/05/2022 04:30:08 PM Interpretation: Performing Lab: Notes/Report: Comprehensive Metabolic Pane l (CMP) Reviewed date:08/20/2022 12:23:35 PM Interpretation: Performing Lab: Notes/Report: Draw Location: [facility] Testing performed at: [address] [address] CLIA ID [id number] GLU 163 70-110 mg/dL Non-Fasting Glu cose range is 75-150 mg/dL BUN 49 9-21 mg/dL CREA 8.0 0.7-1.2 mg/dL Results have b een verified by repeat analysis and given to and read back by Ilana Licea on 08/14/2022 at 08:21 by Lois Roblero (CREA) eGFRAA 8 66-127 mL/min/1.73m2 eGFRNAA 7 55-105 mL/min/1.73m2 BUN/CREA 6 NA 139 137-149 mmol/L K 3.8 3.6-5.2 mmol/L CL 99 98-109 mmol/L CO2 26 26-34 mmol/L Ca 9.9 8.4-10.5 mg/dL AGAP 14 TP 5.4 6.3-8.5 g/dL ALB 3.1 3.3-4.7 g/dL GLOB 2.3 2.4-3.5 g/dL A/G 1.3 1.1-1.5 Ratio ALKP 102 38-126 U/L AST 57 6-40 U/L ALTV 63 4-50 U/L TBIL 0.4 0.2-1.3 mg/dL HEPATITIS PANEL ACUTE W/REFL EX TO CONFIRMATION Reviewed date:08/20/2022 12:23:35 PM Interpretation:Negative Performing Lab: Notes/Report: Draw Location: [facility] Testing performed at: [facility] [place] [facility], [address] [place], [address], Pie Maker Machine: Chris Samano D.O., MPH [facility] Collection Date/Time: [id number] [facility] Results Received Date/Time: [id number] [facility] Reported Date/Time: [id number] HEPATITIS A IGM NON-REACTIVE NON-REACTIVE For additional information, please refer to http://education.Doppelgames/faq/ WZE237 (This link is being provided for informational/ educational purposes only.) HEPATITIS B SURFACE ANTIGEN NON-REACTIVE NON-REACTIVE HEPATITIS B CORE ANTIBODY (IGM) NON-REACTIVE NON-REACTIVE HEPATITIS C ANTIBODY NON-REACTIVE NON-REACTIVE SIGNAL TO CUT-OFF 0.07 <1.00 HCV antibody was non-reactive. There is no laboratory evidence of HCV infection. In most cases, no further action is required. However, if recent HCV exposure is suspected, a test for HCV RNA (test code 56191) is suggested. For additional information please refer to http://education.Doppelgames/faq/ XKE76b1 (This link is being provided for informational/ educational purposes only.) X-ray: Hip Complete - Right (ROUTINE) Reviewed date:08/25/2022 10:11:04 AM Interpretation: Performing Lab: Notes/Report: X-ray: Knee 2v- Right (ZACKARYI NE) Reviewed date:08/25/2022 10:11:04 AM Interpretation: Performing Lab: Notes/Report: Hemoglobin A1C (HbA1C) Reviewed date:11/17/2022 02:23:47 PM Interpretation: Performing Lab: Notes/Report: Draw Location: [facility] Testing performed at: [address] [address] CLIA ID [id number] A1C 5.4 0.0-6.0 % eAG 108 This result is derived from a formula used by the [place] [employer]. Comprehensive Metabolic Pane l (CMP) Reviewed date:11/17/2022 02:23:47 PM Interpretation: Performing Lab: Notes/Report: Draw Location: [facility] Testing performed at: [address] [address] CLIA ID [id number] GLU 110 70-110 mg/dL BUN 25 9-21 mg/dL CREA 8.3 0.7-1.2 mg/dL Results have b een verified by repeat analysis and given to and read back by Ilana Licea on 11/17/2022 at 1203 by Moisés Casarez (CREA) eGFRAA 8 66-127 mL/min/1.73m2 eGFRNAA 6 55-105 mL/min/1.73m2 BUN/CREA 3 NA 131 137-149 mmol/L K 3.6 3.6-5.2 mmol/L CL 92 98-109 mmol/L CO2 27 26-34 mmol/L Ca 7.7 8.4-10.5 mg/dL AGAP 12 TP 4.8 6.3-8.5 g/dL ALB 2.7 3.3-4.7 g/dL GLOB 2.1 2.4-3.5 g/dL A/G 1.3 1.1-1.5 Ratio ALKP 122 38-126 U/L AST 73 6-40 U/L ALTV 27 4-50 U/L TBIL 0.6 0.2-1.3 mg/dL ALPHA FETOPROTEIN, TUMOR MAR KER (AFP) Reviewed date:11/20/2022 02:26:27 PM Interpretation:Negative Performing Lab: Notes/Report: Draw Location: [facility] Testing performed at: , [employer], [address], Pie Maker Machine: Ousmane Jasso [facility] Collection Date/Time: [id number] [facility] Results Received Date/Time: [facility] Reported Date/Time: ALPHA FETOPROTEIN, TUMOR MARKER 2.1 <6.1 ng/mL This test was performed using the Abbie Devonte chemiluminescent method. Values obtained from different assay methods cannot be used interchangeably. AFP levels, regardless of value, should not be interpreted as absolute evidence of the presence or absence of disease. Microalbumin Reviewed date:11/20/2022 02:26:26 PM Interpretation:High Performing Lab: Notes/Report: Draw Location: [facility] Testing performed at: [address] [address] CLIA ID [id number] Albumin 150 mg/L <30 mg/L Creatinine 50 mg/dL 10-300 mg/dL ALB/CREA >300 mg/g High Abnormal 30 mg/g Normal Normal <30mg/g Microalbuminuria 30-300mg/g Clinical Albuminuria >/= 300mg/g Complete Blood Count w/ Auto Diff (CBC) Reviewed date:02/04/2023 02:52:00 PM Interpretation: Performing Lab: Notes/Report: Draw Location: [facility] 1hr Prior Testing performed at: [address] [address] CLIA ID [id number] WBC 7.8 4.0-10.8 10^3/uL RBC 2.99 4.40-6.00 10^6/uL HGB 8.9 14.0-18.0 g/dL HCT 26.4 40.0-52.0 % MCV 88 80-97 fL MCH 30 27-33 pg MCHC 34 32-36 g/dL PLT 205 150-450 10^3/uL RDW 17.2 6.5-16.0 % MPV 8.8 7.4-10.5 fL NEUT% 74.0 40.0-80.0 % LYMPH% 20.2 20.0-45.0 % MIXED% 5.8 0.1-10.0 % This is a combi nation of Monocytes, Eosinophils, and Basophils. NEUT# 5.7 1.6-8.7 10^3/uL LYMPH# 1.6 0.8-5.0 10^3/uL MIXED# 0.5 0.1-1.2 10^3/uL This is a co mbination of Monocytes, Eosinophils, and Basophils. IRON TOTAL Reviewed date:02/11/2023 02:13:50 PM Interpretation:Normal Performing Lab: Notes/Report: Draw Location: [facility]te 1hr Prior [facility] Testing performed at: [facility], [facility], [address] [place] [address], [address], Pie Maker Machine: Lesa Jacobsen MD [facility] Collection Date/Time: [id number] [facility] Results Received Date/Time: [id number] [facility] Reported Date/Time: [id number] FE 55 49-181 ug/dL X-ray: Chest , PA and Lat (R OUTINE) Reviewed date:04/22/2023 06:30:45 AM Interpretation: Performing Lab: Notes/Report: MRI Lumbar Spine w/o Cont--2147 Reviewed date:10/05/2022 11:45:40 AM Interpretation: Performing Lab: Notes/Report: See Below For Report Technique: Sagittal and axial T1 and T2 and sagittal STIR images of REASON FOR REFERRAL Reason Dx sent 08/26 Gwen ward Records Recd 10/01/22 BC, RN Diagnosis 1 Contusion of right k nee, initial encounter (S80.01XA) Referral Organization [facility] Main Referring Provider First Name RAINER Referring Provider Last Name ELIU Referring Provider Speciality Nurse Antwan breauxioner Referred Provider Aquiles Sarkar Referred Provider Specialty Orthopedic S urgery Referral Priority Routine Reason pt needs an MRI of t he lumbar spine without contrast to evaluate lumbar radiculopathy 09/22/22, faxed to scheduling. MARION RN Diagnosis 1 Radiculopathy, lumba r region (M54.16) Referral Organization [facility] Referring Provider First Name HELENA Referring Provider Last Name KETAN Referring Provider Speciality Family Med icine Referred Provider Specialty Radiology Referral Priority Routine Reason Referral to [facility] to further evaluate and treat Liver Cirrhosis (recent Fibroscan) 10/02/22, electronically faxed. MELISSA PICHARDO RECORDS RECD Diagnosis 1 Other cirrhosis of l iver (K74.69) [facility] Referring Provider First Name HELENA [facility]erring Provider Last Name KETAN [facility]erred Provider Specialty Gastroentero logy Referral Priority Routine Referral Appointment Date 02/11/[address] Dallin ward for L4-L5 Foraminal Stenosis, back pain 09/10/22, electronically faxed. 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) Ref[facility] Referring Provider First Name HELENA Referring Provider Last Name KETAN Referring Provider [facility] hitesh Referred Provider Kamran Rios Referred Provider Specialty Dermatology Referral Priority Routine MEDICATIONS Medication SIG (Take, Route, Frequency, Duration) Notes Start Date End Date Status Renvela 800 MG 1 tablet with meals Orally Three times a day Active Levothyroxine Sodium 150 MCG 1 tablet in the morning on an empty stomach Orally Once a day for 90 days Active Famotidine 20 MG 1 tablet at bedtime as needed Orally Once a day for 30 days Active Gentamicin Sulfate 0.1 % 1 application Externally Three times a day Active Metoprolol Succinate ER 25 MG 1 tablet Orally Once a day for 30 days Active Melatonin 3 MG 1 tablet at bedtime as needed Orally Once a day Active Isosorbide Mononitrate ER 120 MG 1 tablet in the morning Orally Once a day for 30 days Active Bevespi Aerosphere 9-4.8 MCG/ACT 2 puffs Inhalation Twice a day Active Plavix 75 MG 1 tablet Orally Once a day Active levoFLOXacin 750 MG 1 tablet Orally Once a day for 5 days 06/23/2023 06/28/2023 Active Albuterol Sulfate (2.5 MG/3ML) 0.083% 3 ml as needed Inhalation every 6 hrs for 30 days 07/13/2022 Active Vitamin D3 1.25 MG (84508 UT) TAKE 1 CAPSULE BY MOUTH ONCE A WEEK CHECK LABS IN 6 WEEKS AT CLINIC for 84 Active Basaglar KwikPen 100 UNIT/ML 15 units Subcutaneous once a day for 19 DOSAGE CHANGE 11/17 Active Creon 05373-11104 UNIT TAKE 5 CAPSULES BY MOUTH WITH MEALS AND 2 TO 3 WITH SNACKS for 30 Active RenaPlex-D - as directed Orally Active Zolpidem Tartrate 10 MG 1 tablet at bedtime Orally Once a day Active Voltaren 1 % apply 4 gram to the affected area(s) by topical route 4 times per day Transdermal 02/22/2019 Active Nitroglycerin 0.4 MG as directed Sublingual Active Albuterol Sulfate HFA 108 (90 Base) MCG/ACT 1-2 puff Inhalation every 4 hrs as needed for wheezing/cough for 30 days 01/06/2022 Active Sertraline HCl 50 MG Take 1 and 1/2 tablet Orally Once a day for 30 Active Needle (Disp) 31G X 5/16 as directed type 2 diabetes E11.21 use to check blood sugars for 90 days pt uses 0.25mm X5mm 31G X3/16 Active amLODIPine Besylate 5 MG 1 tablet Orally Once a day for 30 days 04/01/2023 Active Florastor 250 MG two tablets daily Orally Active NovoLOG FlexPen 100 UNIT/ML INJECT 12 UNITS SUB-Q THREE TIMES A DAY WITH MEALS PLUS SLIDING SCALE for 30 Active Pregabalin 150 MG 1 capsule Orally Once a day for 30 days 05/06/2023 Active Aspirin EC 81 MG 1 tablet Orally Once a day Active Albuterol Sulfate HFA 108 (90 Base) MCG/ACT 2 puffs as needed for cough or wheeze Inhalation every 4 hrs for 30 days 06/23/2023 Active rOPINIRole HCl 0.25 MG 1 tablet Orally Once a day Active Methocarbamol 500 MG 1 tablet Orally every 12 hous Not-Taking Vitamin D (Ergocalciferol) 1.25 MG (56920 UT) take one capsule weekly Oral 09/03/2020 Active Atorvastatin Calcium 40 MG Take 1 tablet by mouth once daily for 90 Active IMMUNIZATIONS Vaccine Route Administration Date Status Comme nts Prevnar 13 IM Intramuscular 07/04/2018 Administered PPV 23* IM Intramuscular 08/20/2020 Administered Influenza (split), 3 yrs and above IM Intramuscular 06/07/2019 Administered Flulaval Quad, Medicare IM Intramuscular 05/18/2022 Admini stered Flulaval Quad, Medicare IM Intramuscular 05/14/2023 Admini stered Flulaval Quad, Medicare Unknown 05/14/2023 Administered SOCIAL HISTORY Tobacco Use: Social History Observation Description Date Details (start date - stop date) Never Smoker NA - NA Sex Assigned At : Social History Observation Description Sex Assigned At Unknown Tobacco Use/Smoking Question Answer Notes Tobacco use: nonsmoker PHQ-2 Question Answer Notes Little interest or pleasure in doing things? Not at all Feeling down, depressed, or hopeless? 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) Active confirmed Diabetic renal disease (113989181) Problem Type 2 diabetes mellitus with diabetic chronic kidney disease (E11.22) Active confirmed 91267012 Problem Type 2 diabetes mellitus with other skin ulcer (E11.622) Active confirmed 480113294 Problem Hyperuricemia without signs of inflammatory arthritis and tophaceous disease (E79.0) Active confirmed Hyperuricemia without signs of inflammatory arthritis and tophaceous disease (544331365) Problem Bipolar disorder, current episode mixed, mild (F31.61) Active confirmed Mixed b ipolar affective disorder, mild (371192894) Problem Parkinson's disease (G20) Active confirmed 83461918 Problem Essential (primary) hypertension (I10) Active confirmed Essential hypertension (19157066) Problem Hypertensive chronic kidney disease with stage 5 chronic kidney disease or end stage renal disease (I12.0) Active confirmed 259185911581339 Problem Paroxysmal atrial fibrillation (I48.0) Active confirmed 321052749 Problem Chronic respiratory failure with hypoxia (J96.11) Active confirmed 808096203 Problem Other cirrhosis of liver (K74.69) Active confirmed Cirrhosis of liver (40746326) Problem Non-pressure chronic ulcer of skin of other sites limited to breakdown of skin (L98.491) Active confirmed 72595101 Problem Fibromyalgia (M79.7) Active confirmed F ibromyalgia (593510725) Problem Chronic kidney disease, stage 5 (N18.5) Active confirmed Chronic kidney disease stage 5 (200419401) Problem End stage renal disease (N18.6) Active confirmed End stage re nal disease (20197021) Problem Secondary hyperparathyroidism of renal origin (N25.81) Active confirmed Secondary hyperparathyroidism of renal origin (51623170) Problem senior living (current) use of insulin (Z79.4) Active confirmed 858519514 Problem Dependence on renal dialysis (Z99.2) Active confirmed 938237298 Problem Dependence on supplemental oxygen (Z99.81) Active confirmed 206200442822 Problem Drug induced constipation (K59.03) Active confirmed Drug-induced constipation (16080082) Problem Exocrine pancreatic insufficiency (K86.81) Active confirmed Exocrine pancre atic insufficiency (63736545) Problem Restless leg syndrome (G25.81) Active confirmed Restless l egs syndrome (78485590) Problem Seasonal allergic rhinitis due to pollen (J30.1) Active confirmed 11802504 Problem 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) Active confirmed Mixed hyperlipi demia (483841141) Problem BMI 26.0-26.9,adult (Z68.26) Active confirmed 007081738 Problem Chronic biliary pancreatitis (K86.1) Active confirmed Chronic pancreatitis (260883535) Problem B12 deficiency (E53.8) Active confirmed Vitamin B12 deficiency (non anemic) (68080642) Problem Atherosclerosis of [place] coronary artery of [place] heart with other form of angina pectoris (I25.118) Active confirmed 108355542 Problem Acute hypokalemia (E87.6) Active confirmed Acute hypokalem ia (76084979) Problem JERE (generalized anxiety disorder) (F41.1) Active confirmed Generalized anx iety disorder (47860280) Problem Claudication (I73.9) Active confirmed 6 2696833 Problem Dialysis patient (Z99.2) Active confirmed 278024989 Problem Amputation of right little finger (S68.116A) Active confirmed 493621774 Problem Other specified hypothyroidism (E03.8) 2012 Active confirmed Hypothyroidism (75806367) [facility] [address]- Problem Vitamin D deficiency, unspecified (E55.9) 2014 Active confirmed Vitamin D defici ency (84618534) [facility]- [address]- Problem Essential tremor (G25.0) 2012 Active confirmed Essential tremor (731793877) [facility]- [address]- Problem Obstructive sleep apnea (adult) (pediatric) (G47.33) 2017 Active confirmed Obstructive slee p apnea syndrome (disorder) (47068408) [facility]- [address]- Problem Other forms of angina pectoris (I20.8) 2017 Active confirmed Angina pectoris (624135612) [facility] [place]- [address]- Problem Venous insufficiency (chronic) (peripheral) (I87.2) 2017 Active confirmed Peripheral venou s insufficiency (78515807) [facility] [place]- [address]- Problem Unspecified anemia (285.9) 2012 Problem resolved confirmed Anemia (929302361) [facility]- [address]- Problem Dysuria (788.1) 2012 Problem resolved confirmed Dysuria (78362103) [facility]- [address]- Problem Decreased libido (799.81) 2012 Problem resolved confirmed Reduced libido (8088690) [facility]- [address]- Problem Type 2 diabetes mellitus without complications (E11.9) 2013 Problem resolved confirmed Type II diabetes mellitus without complication (586400203) [facility]- [address]- Problem Dehydration (E86.0) 2014 Problem resolved confirmed Dehydration (83812989) [facility] [place]- [address]- Problem Hypo-osmolality and hyponatremia (E87.1) 2015 Problem resolved confirmed Hypo-osmolality and or hyponatremia (575215407) [facility] [place]- [address]- Problem Acute bronchitis due to other specified organisms (J20.8) 2016 Problem resolved confirmed Acute bronchitis (87884502) [facility]- [address]- Problem Pain in right shoulder (M25.511) 2015 Problem resolved confirmed Shoulder joint pain (817873581) [facility]- [address]- Problem Radiculopathy, cervical region (M54.12) 2015 Problem resolved confirmed Cervical radiculopathy (10403707) [facility]- [address]- Problem Myositis, unspecified (M60.9) 2014 Problem resolved confirmed Myositis (18866051) [facility]- [address]- Problem Impingement syndrome of right shoulder (M75.41) 2015 Problem resolved confirmed Impingement syndrome of shoulder region (810324432) [facility] [facility] [place] [address]- Problem Acute kidney failure, unspecified (N17.9) 2015 Problem resolved confirmed Acute renal failure syndrome (69979001) [facility] [place] [address]- Problem Chronic kidney disease, stage 2 (mild) (N18.2) 2015 Problem resolved confirmed Chronic kidney disease stage 2 (468740807) [facility] [place]- [address]- Problem Cough (R05) 2016 Problem resolved confirmed Cough (97506612) [facility] [place]- [address]- Problem Other specified symptoms and signs involving the circulatory and respiratory systems (R09.89) 2015 Problem resolved confirmed Cardiovascular symptoms (329911728) [facility] [place]- [address]- Problem Nausea with vomiting, unspecified (R11.2) 2014 Problem resolved confirmed Nausea and vomiting (50400994) [facility] [place]- [address]- Problem Dysuria (R30.0) 2015 Problem resolved confirmed Dysuria (81356977) [facility] [place]- [address]- Problem Encounter for screening for malignant neoplasm of colon (Z12.11) 2016 Problem resolved confirmed Screening for malignant neoplasm of colon (030025367) [facility] [place]- [address]- Problem Encounter for screening for malignant neoplasm of prostate (Z12.5) 2015 Problem resolved confirmed Screening for malignant neoplasm of prostate (659354861) [facility] [place] [address]- Problem Body mass index (BMI) 28.0-28.9, adult (Z68.28) 2012 Problem resolved confirmed Body mass index 25-29 - overweight (443020919) [facility] [place] [address]- Problem History of falling (Z91.81) 2014 Problem resolved confirmed History of fall (920732999) [facility] [place] [address]- Problem History of colonic polyps (V12.72) 2013 Problem resolved confirmed History of polyp of colon (724395232) [facility] [place] [address]- Problem Low back pain (724.2) 2014 Problem resolved confirmed Low back pain (025555945) [facility] [place] [address]- Problem Seasonal allergies (477.0) 2012 Problem resolved confirmed Seasonal allergy (133488900) [facility] [place] [address]- Problem Low sodium level (276.1) 2014 Problem resolved confirmed Hypo-osmolality and or hyponatremia (240970343) [facility] [place] [address]- VITAL SIGNS Heart Rate 64 /min 06/23/2023 oxygen when we first got into the room was 88% by the end of my visit it was 96% took BP twice, with a machine and manually. Oximetry 96 % 06/23/2023 oxygen when we first got into the room was 88% by the end of my visit it was 96% took BP twice, with a machine and manually. Blood pressure diastolic 72 mm Hg 06/23/2023 oxygen when we first got into the room was 88% by the end of my visit it was 96% took BP twice, with a machine and manually. Weight-kg 87.09 kg 06/23/2023 oxygen when we first got into the room was 88% by the end of my visit it was 96% took BP twice, with a machine and manually. Height 70.75 in 06/23/2023 oxygen when we first got into the room was 88% by the end of my visit it was 96% took BP twice, with a machine and manually. Blood pressure systolic 136 mm Hg 06/23/2023 oxygen when we first got into the room was 88% by the end of my visit it was 96% took BP twice, with a machine and manually. Weight 192 lbs 06/23/2023 oxygen when we first got into the room was 88% by the end of my visit it was 96% took BP twice, with a machine and manually. BMI 26.97 kg/m2 06/23/2023 oxygen when we first got into the room was 88% by the end of my visit it was 96% took BP twice, with a machine and manually. Encounters Encounter Location Date Provider Diagnosis [facility] [address] [place] [address] 08/26/2022 HELENA REARDON [facility] [place] [address] [place] [address] 11/11/2022 HELENA KETAN [facility] [place] [address] [place] [address] 01/05/2023 HELENA REARDON [facility] [place] [address] [place] [address] 01/30/2023 ESPINOZA BEY [facility] [place] [address] [place] [address] 02/08/2023 HELENA REARDON [facility] [place] [place] [address] 05/14/2023 HELENA REARDON B12 deficiency E53.8 ; Vitamin D deficiency, unspecified E55.9 ; Anemia, unspecified D64.9 ; Type 2 diabetes mellitus without complications E11.9 and Other specified hypothyroidism E03.8 [facility] [place] [address] [place] [address] 05/20/2023 HELENA REARDON [facility] [place] [address] [place] [address] 05/24/2023 HELENA REARDON [facility] [place] [address] [place] [address] 06/23/2023 HELENA REARDON SOB (shortness of breath) R06.02 ; Community acquired bacterial pneumonia J15.9 and Dialysis patient Z99.2 [facility] [place] [address] [place] [address] 07/13/2022 HELENA REARDON Cough R05.9 and Community acquired bacterial pneumonia J15.9 [facility] [place] [address] [place] [address] 07/16/2022 HELENA REARDON Community acquired bacterial pneumonia J15.9 [facility] [place] [address] [place] [address] 08/05/2022 IRINA SHARP Cough in adult R05.9 ; Dependence on renal dialysis Z99.2 ; Chronic respiratory failure with hypoxia J96.11 ; Wheeze R06.2 and Bronchitis J40 [facility] [place] [place] [address] 08/13/2022 HELENA REARDON Other specified coug h R05.8 and Elevated liver enzymes R74.8 [facility] [place] [address] 08/25/2022 RAINER HAMBELTON Injury of right knee , initial encounter S89.91XA ; Contusion of right knee, initial encounter S80.01XA and Injury of right hip, initial encounter S79.911A [facility] [place] [place] [address] 09/15/2022 ESPINOZA BEY Hypoxia R09.02 and Bradycardia R00.1 [facility] [place] [address] 09/22/2022 HELENA REARDON Radiculopathy, lumba r region M54.16 [facility] [place] [address] 10/30/2022 RAINER HAMBELTON Amputation of finger , subsequent encounter S68.119D [facility] [place] [place] [address] 11/04/2022 HELENA REARDON Amputation of right little finger S68.116A ; Other fatigue R53.83 ; Nausea R11.0 and Lethargic R53.83 [facility] [place] [address] 11/17/2022 HELENA REARDON Type 2 diabetes mellitus with diabetic chronic kidney disease E11.22 ; 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 ; Amputation of right little finger S68.116A and Other cirrhosis of liver K74.69 [facility] [place] [address] 11/20/2022 HELENA REARDON Type 2 diabetes mellitus with diabetic chronic kidney disease E11.22 [facility] [place] [address] 02/04/2023 HELENA REARDON Anemia in chronic kidney disease D63.1 ; Atherosclerosis of [place] coronary artery of [place] heart with other form of angina pectoris I25.118 ; Other fatigue R53.83 and Paroxysmal atrial fibrillation I48.0 [facility] [address] [place] [address] 03/31/2023 HELENA REARDON Other viral enteriti s A08.39 [facility] [address] [place] [address] 04/21/2023 HELENA REARDON Shortness of breath R06.02 and Community acquired bacterial pneumonia J15.9 [facility] [address] [place] [address] 05/14/2023 HELENA REARDON Scleral hemorrhage o f right eye H11.31 and Encounter for immunization Z23 [facility] [address] [place] [address] 07/27/2022 HELENA REARDON Elevated liver enzym es R74.8 [facility] [address] [place] [address] 08/14/2022 HELENA REARDON [facility] [address] [place] [address] 09/10/2022 HELENA REARDON [facility] [address] [place] [address] 09/16/2022 HELENA REARDON [facility] [address] [place] [address] 10/02/2022 HELENA REARDON Other cirrhosis of liver K74.69 [facility] [address] [place] [address] 10/08/2022 HELENA REARDON [facility] [address] [place] [address] 10/12/2022 HELENA REARDON [facility] [address] [place] [address] 10/27/2022 HELENA REARDON [facility] [address] [place] [address] 11/03/2022 HELENA REARDON [facility] [address] [place] [address] 11/17/2022 HELENA REARDON [facility] [address] [place] [address] 12/14/2022 HELENA REARDON [facility] [address] [place] [address] 02/11/2023 HELENA REARDON Other specified hypothyroidism E03.8 ; Anemia, unspecified D64.9 ; Type 2 diabetes mellitus without complications E11.9 ; Vitamin D deficiency, unspecified E55.9 ; B12 deficiency E53.8 ; Chronic kidney disease, stage 5 N18.5 and Other cirrhosis of liver K74.69 [place] [address] [place] [address] 03/10/2023 [facility] [address] [place] [address] 04/01/2023 [facility] [address] [place] [address] 04/01/2023 [facility] [address] [place] [address] 05/06/2023 [facility] [address] [place] [address] 05/17/2023 HELENA REARDON Other specified hypothyroidism E03.8 ; Type 2 diabetes mellitus with diabetic nephropathy E11.21 and Encounter for screening for cardiovascular disorders Z13.6 ASSESSMENTS Encounter Date Diagnosis Assessment Notes Treatment Notes Treatment Clinical Notes 07/13/2022 Community acquired bacterial pneumonia (ICD-10 - J15.9) He appears mildly to moderately ill today and it appears he is developing a pneumonia. He does not want to be in the hospital. I have advised him that he is sick enough to consider this, but will maximize outpatient treatment and provide close follow up. We want him to start breathing treatments with a nebulizer and will give him some refills for the albuterol solution. Will also treat with oral steroids, and oral antibiotics. shot of rocephin and breathing treatment today. RTC on . 07/13/2022 Cough (ICD-10 - R05.9) 07/16/2022 Community acquired bacterial pneumonia (ICD-10 - J15.9) symptoms have improved. he sounded good on exam today. want him to finish out his medications and continue his breathing treatments. 07/27/2022 Elevated liver enzymes (ICD-10 - R74.8) 08/05/2022 Cough in adult (ICD-10 - R05.9) 08/13/2022 Elevated liver enzymes (ICD-10 - R74.8) this elevation could be due to viral infections. we will plan to repeat labs and call him with results. if persistently elevated, we can further evaluate with ultrasound. 08/13/2022 Other specified coug h (ICD-10 - R05.8) 08/25/2022 Contusion of right knee, initial encounter (ICD-10 - S80.01XA) Reviewed imaging with Dr. Reardon -- no acute injury noted. Ortho referral needed. Will call you directly to schedule. 08/25/2022 Injury of right knee , initial encounter (ICD-10 - S89.91XA) 09/15/2022 Bradycardia (ICD-10 - R00.1) 09/15/2022 Hypoxia (ICD-10 - R09.02) I realize you are here for radicular back pain. However, you are not getting enough oxygen and your heart rate is low. I recommend your be evalulated at [facility]. You have delined ambulance transport this visit and will have your drive you via private vehicle. We will follow up accordingly. 09/22/2022 Radiculopathy, lumba r region (ICD-10 - M54.16) we will proceed with an MRI of the lumbar spine. If insurance needs a prior authorization, we may need to pursue physical therapy before they will approve it. Offered something for pain, Tramadol, and patient has declined it. He says it does not help him normally. 10/02/2022 Other cirrhosis of liver (ICD-10 - K74.69) 10/30/2022 Amputation of finger , subsequent encounter (ICD-10 - S68.119D) Advised by Dr. Gillis's office and Dr. Monreal today in clinic _ _ you are to report directly to the ED. 11/04/2022 Other fatigue (ICD-1 0 - R53.83) 11/04/2022 Amputation of right little finger (ICD-10 - S68.116A) 11/17/2022 Type 2 diabetes mellitus with diabetic chronic kidney disease (ICD-10 - E11.22) last A1C was well controlled and actually was lower that we would want it. We will get labs today and call when we see results. 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 we will refer to [facility] for further evaluation and treatment. 11/20/2022 Type 2 diabetes mellitus with diabetic chronic kidney disease (ICD-10 - E11.22) 02/04/2023 Anemia in chronic kidney disease (ICD-10 - D63.1) we will check his blood count today and call with results. Will let him know if a transfusion is needed. 02/11/2023 Other specified hypothyroidism (ICD-10 - E03.8) 02/04/2023 Atherosclerosis of [place] coronary artery of [place] heart with other form of angina pectoris (ICD-10 - I25.118) 03/31/2023 Other viral enteriti s (ICD-10 - A08.39) Current illness appears to be consistent with a viral gastroenteritis. As such, it is typically a self-limited illness that should improve in around 48-72 hours, but may linger as long as one week. Antibiotics do not cure viral illnesses like this one and may actually cause or make diarrhea worse. The biggest risk with this infection is dehydration, therefore we recommend gut rest: clear liquids only for at least 12-24 hours (pedialyte, gatorade, jello, popsicles, broth, as examples of clear liquids). We would also recommend avoiding milk/dairy products until symptoms are completely resolved. After tolerating clear liquids well, the diet may be advanced to a bland diet, such as the BRAT Diet (bananas, rice, applesauce and toast). Once symptoms are improved on the bland diet, advance slowly and avoid greasy/spicy foods until symptoms are well-improved. Over the counter Imodium may be given to aid in relieving diarrhea. Children over 12 years and adults may take 2 mg Imodium with every loose bowel movement, but should not take more than 8 doses in any 24 hour period. Imodium should not be used if the patient is experiencing bloody stools or abdominal pain. Your doctor may choose to prescribe nausea medication, if appropriate. If the symptoms worsen, or if there are signs of dehydration, please contact our office immediately. Likewise, if there are other worsening symptoms like high fever, abdominal pain (other than cramps), bloody stools, or if symptoms are persistent past 7 days from onset, further evaluation is warranted and you should contact us immediately to consider further evaluation. The patient has Zofran at home he can use for the nausea. 04/21/2023 Shortness of breath (ICD-10 - R06.02) 04/21/2023 Community acquired bacterial pneumonia (ICD-10 - J15.9) xray today. abnormal. shows a pneumonia. we will treat with a course of antibiotics. want him to do his breathing treatments every 4 hours for a few day. Will give a shot of Rocephin here in clinic today. Course of steroids. 05/14/2023 Vitamin D deficiency , unspecified (ICD-10 - E55.9) [facility] [place]-[id number]- 05/14/2023 B12 deficiency (ICD-10 - E53.8) 05/14/2023 Encounter for immunization (ICD-10 - Z23) 05/14/2023 Scleral hemorrhage o f right eye (ICD-10 - H11.31) reassurance was given that this is benign. As long as it is not effecting your vision, i wouldnt recommend doing anything else. 05/17/2023 Other specified hypothyroidism (ICD-10 - E03.8) 06/23/2023 SOB (shortness of breath) (ICD-10 - R06.02) 06/23/2023 Community acquired bacterial pneumonia (ICD-10 - J15.9) we will treat for pneumonia today. want him to continue the steroids he is already taking. We will also start him on a strong antibiotic, Levaquin. We will give him an antibiotic shot today in clinic. We will also give him an Albuterol inhaler to use every 4 hours on a schedule. see him back in a week. 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 Want him to watch for signs of infection and if you notice anything, let our office know. 11/04/2022 Nausea (ICD-10 - R11.0) we will get him something for nausea. we will also give him something for when his sugar drops too low. 08/25/2022 Injury of right hip, initial encounter (ICD-10 - S79.911A) 08/05/2022 Dependence on renal dialysis (ICD-10 - Z99.2) 08/05/2022 Wheeze (ICD-10 - R06.2) 08/05/2022 Chronic respiratory failure with hypoxia (ICD-10 - J96.11) 11/04/2022 Lethargic (ICD-10 - R53.83) you need to hold the Zolpidem right now, until we figure out why he is so fatigued or he gets past this illness. 02/04/2023 Paroxysmal atrial fibrillation (ICD-10 - I48.0) 02/11/2023 Type 2 diabetes mellitus without complications (ICD-10 - E11.9) 05/17/2023 Encounter for screening for cardiovascular disorders (ICD-10 - Z13.6) 05/14/2023 Type 2 diabetes mellitus without complications (ICD-10 - E11.9) [facility] [place]-[id number]- 05/14/2023 Other specified hypothyroidism (ICD-10 - E03.8) [facility] [place]-[id number]- 02/11/2023 Vitamin D deficiency , unspecified (ICD-10 - E55.9) 11/17/2022 Other cirrhosis of liver (ICD-10 - K74.69) 08/05/2022 Bronchitis (ICD-10 - J40) In collaboration with Dr. Monreal, x-ray, clinical course, and medications were reviewed and the following determined: likely bronchitis and inflammatory in nature. We will do 5 days of oral steroids to reduce wheezes and chest tightness and improve breathing. Use your inhalers as prescribed and home O2 for support. Plenty of rest/fluids. Take medication through to completion. Return to if you have no improvement in your symptoms in the next 3-4 days or sooner with worsening symptoms. Report directly to ER with symptoms of respiratory distress such as uncontrolled coughing wheezing or difficulty breathing. Use your inhaler scheduled 4 times daily for 3 days then as needed for coughing or wheezing. 02/11/2023 B12 deficiency (ICD-10 - E53.8) 02/11/2023 Chronic kidney disease, stage 5 (ICD-10 - N18.5) 02/11/2023 Other cirrhosis of liver (ICD-10 - K74.69) PLAN OF TREATMENT Pending Test Test Name Order Date SHAVE TRUNK ARM LEG 0.5-1 cm 04/08/2022 Future Test Test Name Order Date Lipid Panel 05/17/2023 Thyroid Stimulating Hormone (TSH) 2022 Hemoglobin A1C (HbA1C) 11/15/2023 Comprehensive Metabolic Panel (CMP) 03/2024 Next Appt Details Provider Name:HELENA MANRIQUE SON, 06/30/2023 03:10:00 PM, [address], [place], [address], Insurance Providers Payer Name Payer Address Payer Phone Subscriber Number Group Number Insured Name Patient Relationship to Insured Coverage Start Date Coverage End Date A MEDICARE [address] [place] [phone] [id number] Anshu Hurt Self - patient is the insured 8 [employer] [place] [address] [address] [facility] [address] [place] [address] [id number] PLAN G Anshu Hurt Self - patient is the insured 8 MEDICATIONS ADMINISTERED Medication Instructions Date of Administration Dosage Notes Betamethasone 01/06/2022 2 mL [id number] [facility] [id number] Betamethasone 06/10/2022 2 mL [facility] [id number] lot [id number] cefTRIAXone Sodium 07/13/2022 1 g [facility] [id number] LOT [id number] cefTRIAXone Sodium 04/21/2023 1 g LOT: [id number] EXP:12/2024 GTIN: [id number] NDC: [address]-2 cefTRIAXone Sodium 06/23/2023 1 g [id number] LOT:[id number] EXP:12/2024 MEDICAL (GENERAL) HISTORY Medical History History ICD Code Hyperlipidemia Hypertension Colonic Polyps: dx'd in 2007; biopsy elile wed adenoma Chronic kidney disease, stag e IV/V; In eval for renal transplantation (Jun 2019) Fibromyalgia Type 2 Diabetes: controlled; complications include retinopathy, nephropathy, and CKD; compliance is poor, but improved control with starting dialysis and 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 Leone, [place] Mill Operator: Dr. Simental ([place]), Service Center Representative: Dr. Aceves, Psychiatrist: Dr. Leblanc, [place], Psychologist: Dr. Burciaga, Perfume Compounder: Dr. Prabhakar, Steel Fixer: Dr. Reardon ([place]), Neurosurgeon: Dr Del Rosario LIVING WILL: Patient denies that he has a living will COLONOSCOPY: was last done with the following abnormalaties noted-- multiple adenomatous polyps The next one is due 2020 family history of colon cancer; personal hx multiple polyps Dr. Leone. Scheduled for around october 2020 DIABETIC EYE EXAM: was last done 03/24/2022 [place], mild background diabetic retinopathy INFLUENZA VACCINE: 05/14/23 PNEUMOCOCCAL VACCINE: was la st done 2013 and 08/20/20 Pneumovax 23 07/04/18, Prevnar 13 TETANUS VACCINE: 2019 SHINGLES VACCINE: was last done 05/21/15 . He has had 2 shingrix vaccines COVID-19 VACCINE: he states he has had a ll moderna vaccines FIBROSCAN: was done 09/17/22, cirrhosis- referral to GI Surgical History Surgery Date(Month/Year) Appendectomy Cholecystectomy: open procedure; uncompl icated Transurethral Resection of Prostate, unc omplicated [address] Del Rosario 2021 Bilateral Subareolar Breast Biopsies 202 2 Deep Brain Stimulator Inserted (essentia l tremor) 2020 Excisional Biopsy Right Ring Finger Lesi on/Ulcer. Dr. Dickson 2021 Right Ring Finger Amputation to middle p halanx. Dr. Dickson 2021 Right Pinky Finger Partial Amputation. 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
--- OUTSIDE RECORDS SUMMARY | 2023-06-27 14:54 | XMS_ITS | Patient Health Record ---
Author Name Unknown Organization [facility] Address [address] [place] [address] Care Team Providers Care Tierce Filler Name Role Phone Kiran Reardon Primary Care Provider Unavailab le Migration, Provider Unavailable Unavailable Chris Leone Unavailable Unavailable Tam Del Rosario Unavailable Unavailable ALLERGIES Allergen (clinical drug ingredient) Drug/Non Drug Allergy documented on EMR Reaction Allergy Type Onset Date Status carbidopa / levodopa Carbidopa-Levodopa Unknown Drug Aller gy Active codeine Codeine Sulfate nausea Drug Allergy A ctive REASON FOR REFERRAL Reason PT evaluate and eitan t lumbar spine progress to home program Diagnosis 1 Degenerative lumbar spinal stenosis (M48.061) Referring Provider First Name Tam Referring Provider Last Name Carin Referred Provider Physical Therapy [facility] Referred Provider Specialty Physical The rapist General Notes Assign To :Azul stokes;, Facility From :[facility]; Referral Priority Routine Reason Liver CIrrhosis Ap pt 02/11 Referring Provider First Name Kiran Referring Provider Last Name Alexys Referring Provider Speciality Family Med icine Referred Provider Migration, Provider Referred Provider Specialty Gastroentero logy General Notes Caryl Arriaga 10/28 03:51:47 PM >Est Pt-schedule with Dr Leone;Referring To :Gastroenterology [facility];, Assign To :Bart Hutson;, Facility To :[facility]; Referral Priority Routine MEDICATIONS Medication SIG (Take, Route, Frequency, Duration) Notes Start Date End Date Status Levothyroxine Sodium 150 MCG 1 tablet in the morning on an empty stomach Orally Once a day Active Zoloft 50 MG 1.5 tablet Orally Once a day for 30 day(s) Active Nitroglycerin 0.4 MG as directed Sublingual Active Magnesium Oxide 400 MG 1 tablet as neede d Orally Once a day Not-Taking RenaPlex-D - as directed Orally Not-Taking Pantoprazole Sodium 40 MG 1 tablet Orally Once a day Not-Taking Albuterol Sulfate HFA 108 (90 Base) MCG/ACT 1 puff as needed Inhalation every 4 hrs Not-Taking Creon 76384-70002 UNIT as directed Orally Active Lyrica 100 MG 1 capsule Orally Once a day Active Cholecalciferol 125 MCG (5000 UT) as directed Orally *Pick strength-form from [employer] for eRX* Not-Taking Vitamin D3 1.25 MG (85458 UT) 1 capsule Orally Once a week Active Potassium Chloride ER 20 MEQ Take 1 cap by mouth daily Oral for 30 Potassium Chloride 10mEq Capsules, Extended Release Take 1 cap by mouth daily #30 (Thirty) capsule(s) 11/21/2012 Not-Taking Bevespi Aerosphere 9-4.8 MCG/ACT 2 puffs Inhalation Twice a day Active Clopidogrel Bisulfate 75 MG 1 tablet Orally Once a day Active NovoLOG 100 UNIT/ML as directed Subcutaneous Active Basaglar KwikPen 100 UNIT/ML as directed Subcutaneous Active Atorvastatin Calcium 40 MG 1 tablet Orally Once a day Active Calcium Acetate (Phos Binder) 667 MG 3 tablets with meals Orally as directed Active Aspirin 81 MG 1 tablet Orally Once a day Active Famotidine 20 MG 1 tablet at bedtime as needed Orally Once a day Active rOPINIRole HCl 0.25 MG 1 tablet 1 to 3 hours before bedtime Orally Once a day Active IMMUNIZATIONS Vaccine Route Administration Date Status Comme nts Pneumovax 23 Unknown 08/22/2015 Administered Immunizati on Given by from source eCW:: Influenza (whole), CPT 97789 Inactive Unknown 11/11/2017 Administered Influenza (whole), CPT 31693 Inactive Unknown 04/13/2018 Administered Influenza (whole), CPT 92440 Inactive Unknown 05/09/2018 Administered Influenza (whole), CPT 84589 Inactive Unknown 06/01/2018 Administered Influenza (whole), CPT 02813 Inactive Unknown 03/22/2019 Administered Flucelvax Unknown 08/07/2019 Administered Immunization Given by from source eCW:: SOCIAL HISTORY Sex Assigned At : Social History Observation Description Sex Assigned At Unknown PROBLEMS Problem Type ICD Code Onset Dates Problem Status W/U Status Risk SNOMED Code Notes Problem Heartburn (787.1) 011 Problem resolved confirmed [id number] 5911- Problem Anemia in chronic kidney disease (D63.1) Active confirmed 726598094 Problem Other chronic pain (G89.29) Active confirmed 50764384 Problem Hypertensive chronic kidney disease with stage 5 chronic kidney disease or end stage renal disease (I12.0) Active confirmed 04398368494458 Problem Other cirrhosis of liver (K74.69) Active confirmed 09218722 Problem Primary osteoarthritis, left shoulder (M19.012) Active confirmed 309882231108711 Problem Other spondylosis with radiculopathy, lumbar region (M47.26) Active confirmed 55877978 Problem Lumbago with sciatica, right side (M54.41) Active confirmed 922640159533051 Problem Chronic kidney disease, stage 5 (N18.5) Active confirmed 142583452 Problem End stage renal disease (N18.6) Active confirmed 37392770 Problem Secondary hyperparathyroidism of renal origin (N25.81) Active confirmed 46608262 Problem Dependence on supplemental oxygen (Z99.81) Active confirmed 490204719257 Problem Type 2 diabetes mellitus without complications (E11.9) Active confirmed 588289564 Problem Hyperlipidemia, unspecified (E78.5) Active confirmed 96414396 Problem Non-ST elevation (NSTEMI) myocardial infarction (I21.4) Active confirmed 311931389 Problem 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 Active confirmed 05059843 [facility][id number] 5911- Problem Insomnia (307.41) 012 Problem resolved confirmed 883106251 [facility]98 5911- Problem Type II diabetes requiring insulin (250.00) 011 Active confirmed 322245069 [facility]98 5911- Problem Tinea pedis (110.4) 012 Problem resolved confirmed 8022888 [facility]98 5911- Problem Tremulousness (781.0) 012 Problem resolved confirmed 505002439 [facility]98 5911- Problem Allergic rhinitis, other allergen-induced (477.8) 012 Problem resolved confirmed 92307339 [facility]98 5911- Problem Major depression, recurrent episode, moderate (296.32) 011 Problem resolved confirmed 36096844 [facility] [place]- Problem Situational stress with anxiety (300.09) 012 Problem resolved confirmed 869610969 [facility] [place] [place]11- Problem Nausea and vomiting (787.01) 011 Problem resolved confirmed 74411320 [facility] [place] [place]11- Problem Atypical skin lesion (238.2) 012 Problem resolved confirmed 86588104 [facility] [place] [place]11- Problem Benign essential tremor (333.1) 011 Problem resolved confirmed 437045328 [facility] [place]- Problem Renal calculus (592.0) 012 Problem resolved confirmed 35709187 [facility] [place] [place]11- Problem Restless leg syndrom e (333.99) 011 Problem resolved confirmed 81688850 [facility] [place]- Problem Acquired hypothyroidism (244.8) 011 Problem resolved confirmed 709718638 [facility] [place]- Problem Callus (700) 012 Problem resolved confirmed 050065184 [facility] [place]- Problem Joint pain, multiple sites (719.49) 012 Active confirmed 51859574 [facility] [place]- Problem S/P PTCA (percutaneous transluminal coronary angioplasty) (Z98.61) Active confirmed 918410896 Problem GERD (gastroesophageal reflux disease) (K21.9) Active confirmed 418387935 Problem Lumbar disc herniation (M51.26) Active confirmed 589153192 Problem Fibromyalgia (729.1) 011 Problem resolved confirmed 853072470 [facility] [place]- Problem Cirrhosis of liver without ascites, unspecified hepatic cirrhosis type (K74.60) Active confirmed 30832617 Problem Hypertension, benign (I10) Active confirmed 69456311 Problem Hypophosphatemia (E83.39) Active confirmed 8931822 Problem 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 mellitus (E11.22) Active confirmed 172705987 Problem Nephrolithiasis (N20.0) Active confirmed 02625866 Problem Enlarged prostate (N40.0) Active confirmed 591341292 Problem Bradycardia (R00.1) Active confirmed 48 735971 Problem Hyperlipemia (E78.5) Active confirmed 5 5026636 Problem Hx of non-ST elevation myocardial infarction (NSTEMI) (I25.2) Active confirmed 7856066 Problem Premature ventricula r contractions (I49.3) Active confirmed 276530199 Problem Neurogenic claudication (G95.19) Active confirmed 553724319 Problem Anemia associated with chronic renal failure (D63.1) Active confirmed 01522857 Problem Lumbar degenerative disc disease (M51.36) Active confirmed 68623588 Problem Carpal tunnel syndrome of left wrist (G56.02) Active confirmed 615419317018262 Problem Premature atrial contractions (I49.1) Active confirmed 589544554 Problem Degenerative lumbar spinal stenosis (M48.061) Active confirmed 955202865 Problem Medication managemen t (Z79.899) Active confirmed 373393749 Problem Anxiety (F41.9) Active confirmed 083438 02 Problem History of coronary artery stent placement (Z95.5) Active confirmed 981033546 Problem History of adenomatous polyp of colon (Z86.010) Active confirmed 717185916 Problem Insomnia, unspecifie d type (G47.00) Active confirmed 823987128 Problem ESRD (end stage rosemary l disease) (N18.6) Active confirmed 06818240 Problem 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 of antithrombotics/antip latelets (Z79.02) Active confirmed 925860727 Problem Bipolar 1 disorder (F31.9) Active confirmed 002799644 Problem Parkinson disease (G20) Active confirmed 72568792 Problem Atherosclerosis of [place] coronary artery of [place] heart without angina pectoris (I25.10) Active confirmed 479509909397849 Problem Coronary arteriosclerosis (I25.10) Active confirmed 12145583 VITAL SIGNS Heart Rate 94 /min 02/11/2023 Temperature 97.7 degrees Fahrenheit 02/11/2023 Respiratory Rate 20 /min 02/11/2023 Blood pressure diastolic 90 mm Hg 02/11/2023 Oximetry 98 % 02/11/2023 Weight-kg 82.1 kg 02/17/2023 Height 71 in 02/17/2023 Blood pressure systolic 142 mm Hg 02/11/2023 Weight 181 lbs 02/17/2023 BMI 25.24 kg/m2 02/17/2023 Encounters Encounter Location Date Provider Diagnosis [facility] [address] [place] [address] 09/09/2022 Chris Leone [facility] [address] [facility] [place] [address] 10/19/2022 Tam Godwayne [facility] [address] [facility] [place] [address] 12/24/2022 Tam Tubbso [facility] [address] [facility] [place] [address] 01/20/2023 Provider Migration [facility] [address] [facility] [place] [address] 02/02/2023 Provider Migration [facility] [address] [place] [address], [place] [address] 02/16/2023 Chris Leone [facility] [address] [place] [address], [place] [address] 05/20/2023 Provider Migration [facility] [address] [place] [address] 07/21/2022 Provider Migration Hx of non-ST elevation myocardial infarction (NSTEMI) I25.2 ; Atherosclerosis of [place] coronary artery of [place] heart without angina pectoris I25.10 ; History of coronary artery stent placement Z95.5 and longterm current use of antithrombotics/antipla telets Z79.02 [facility] [address] [place] [address], [place] [address] 07/21/2022 Provider Migration Anxiety F41.9 ; Bipolar 1 disorder F31.9 ; Insomnia, unspecified type G47.00 and Medication management Z79.899 [facility] [address] [facility] [place] [address] 09/17/2022 Chris Leone Abnormal LFTs R79.89 [facility] [address] [facility] [place] [address] 09/17/2022 Provider Migration Other cirrhosis of liver K74.69 [facility] [address] [place] [address], [place] [address] 10/20/2022 Provider Migration Bipolar 1 disorder F31.9 ; Anxiety F41.9 ; Insomnia, unspecified type G47.00 and Medication management Z79.899 [facility] [address] [facility] [place] [address] 10/22/2022 Tam Del Rosario Neurogenic claudicat ion due to lumbar spinal stenosis M48.062 ; Other spondylosis with radiculopathy, lumbar region M47.26 and Connective tissue and disc stenosis of intervertebral foramina of lumbar region M99.73 [facility] [address] [facility] [place] [address] 12/24/2022 Tam Del Rosario Other spondylosis wi th radiculopathy, lumbar region M47.26 ; Neurogenic claudication due to lumbar spinal stenosis M48.062 ; Lumbar degenerative disc disease M51.36 and Connective tissue and disc stenosis of intervertebral foramina of lumbar region M99.73 [facility] [address] [facility] [place] [address] 02/11/2023 Chris Leone Chronic diarrhea K52 .9 ; Cirrhosis of liver without ascites, unspecified hepatic cirrhosis type K74.60 ; Atherosclerosis [place] coronary artery of [place] heart without angina pectoris I25.10 ; End stage renal disease N18.6 ; Type 2 diabetes mellitus without complications E11.9 and longterm (current) use of antithrombotics/antipla telets Z79.02 [facility] [address] [facility] [place] [address] 02/17/2023 Provider Migration Bipolar 1 disorder F31.9 ; Anxiety F41.9 ; Insomnia, unspecified type G47.00 and Medication management Z79.899 [facility] [address] [place] [address], [place] [address] 09/16/2022 Provider Migration Elevated LFTs R79.89 [facility] [address] [facility] [place] [address] 10/28/2022 Chris Leone [facility] [address] [facility] [place] [address] 12/07/2022 Provider Migration [facility] [address] [place] [address] 01/05/2023 Tam Del Rosario Bleeding tendency D6 9.9 ; Pre-op testing Z01.818 ; Lumbar degenerative disc disease M51.36 ; Lumbago with sciatica, right side M54.41 ; Degenerative lumbar spinal stenosis M48.061 and Neurogenic claudication G95.19 [facility], [facility] [address] [place] [address] 01/06/2023 Tam Del Rosario ASSESSMENTS Encounter Date Diagnosis Assessment Notes Treatment Notes Treatment Clinical Notes 07/21/2022 Bipolar 1 disorder (ICD-10 - F31.9) 07/21/2022 Hx of non-ST elevati on myocardial infarction (NSTEMI) (ICD-10 - I25.2) 07/21/2022 Atherosclerosis of [place] coronary artery of [place] heart without angina pectoris (ICD-10 - I25.10) 09/16/2022 Elevated LFTs (ICD-1 0 - R79.89) 09/17/2022 Abnormal LFTs (ICD-1 0 - R79.89) 09/17/2022 Other cirrhosis of liver (ICD-10 - K74.69) 07/21/2022 Anxiety (ICD-10 - F41.9) 10/20/2022 Bipolar 1 disorder (ICD-10 - F31.9) 10/22/2022 Neurogenic claudication due to lumbar spinal stenosis (ICD-10 - M48.062) Patient symptoms and clinical findings reviewed, imaging studies shown to patient. All questions and concerns addressed, I discussed surgical treatment as an option, also discussed continued symptomatic management, patient prefers to continue physical therapy a little longer, he will return in 2 weeks or sooner if his symptoms change or worsen. 12/24/2022 Other spondylosis wi th radiculopathy, lumbar region (ICD-10 - M47.26) 12/24/2022 Neurogenic claudication due to lumbar spinal stenosis (ICD-10 - M48.062) Patient symptoms and clinical findings reviewed, treatment options discussed. I have again offered surgery with minimally invasive unilateral fusion L4-5 right. All questions and concerns addressed, patient chooses to proceed with the surgery that has been offered. 01/05/2023 Bleeding tendency (ICD-10 - D69.9) 02/11/2023 Cirrhosis of liver without ascites, unspecified hepatic cirrhosis type (ICD-10 - K74.60) 02/11/2023 Chronic diarrhea (ICD-10 - K52.9) 02/17/2023 Bipolar 1 disorder (ICD-10 - F31.9) 02/17/2023 Anxiety (ICD-10 - F41.9) 02/11/2023 Atherosclerosis of [place] coronary artery of [place] heart without angina pectoris (ICD-10 - I25.10) 01/05/2023 Pre-op testing (ICD- 10 - Z01.818) 12/24/2022 Lumbar degenerative disc disease (ICD-10 - M51.36) 10/22/2022 Other spondylosis wi th radiculopathy, lumbar region (ICD-10 - M47.26) 07/21/2022 Insomnia, unspecifie d type (ICD-10 - G47.00) 10/20/2022 Anxiety (ICD-10 - F41.9) 07/21/2022 History of coronary artery stent placement (ICD-10 - Z95.5) 07/21/2022 Medication managemen t (ICD-10 - Z79.899) 07/21/2022 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 of antithrombotics/antipl atelets (ICD-10 - Z79.02) 10/20/2022 Insomnia, unspecifie d type (ICD-10 - G47.00) 10/22/2022 Connective tissue an d disc stenosis of intervertebral foramina of lumbar region (ICD-10 - M99.73) 12/24/2022 Connective tissue an d disc stenosis of intervertebral foramina of lumbar region (ICD-10 - M99.73) 01/05/2023 Lumbar degenerative disc disease (ICD-10 - M51.36) 02/11/2023 End stage renal disease (ICD-10 - N18.6) 02/17/2023 Insomnia, unspecifie d type (ICD-10 - G47.00) 02/17/2023 Medication managemen t (ICD-10 - Z79.899) 01/05/2023 Lumbago with sciatic a, right side (ICD-10 - M54.41) 02/11/2023 Type 2 diabetes mellitus without complications (ICD-10 - E11.9) 10/20/2022 Medication managemen t (ICD-10 - Z79.899) 01/05/2023 Degenerative lumbar spinal stenosis (ICD-10 - M48.061) 02/11/2023 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 (current) use of antithrombotics/antipl atelets (ICD-10 - Z79.02) 01/05/2023 Neurogenic claudication (ICD-10 - G95.19) 07/21/2022 Other No change in medical regimen. Six-month followup visit PLAN OF TREATMENT Pending Test Test Name Order Date Prothrombin Time 57413 01/05/2023 Prothrombin Time 41196 11/07/2019 Prothrombin Time 67770 09/12/2021 ABORh 64365, 53521 09/12/2021 ABORh 60858, 04896 01/05/2023 Antibody Screen 52953 01/05/2023 Antibody Screen 81944 09/12/2021 Basic Metabolic Panel 54859 09/12/2021 Basic Metabolic Panel 35759 09/16/2021 Basic Metabolic Panel 02584 09/18/2021 Basic Metabolic Panel 88913 09/18/2021 Basic Metabolic Panel 41443 01/05/2023 Basic Metabolic Panel 37732 03/27/2020 Basic Metabolic Panel 79401 11/07/2019 CBC w\ Auto Diff 86481 11/07/2019 CBC w\ Auto Diff 84482 01/05/2023 CBC w\ Auto Diff 41732 03/27/2020 CBC w\ Auto Diff 30930 09/18/2021 CBC w\ Auto Diff 14379 09/12/2021 CBC w\ Auto Diff 14835 11/07/2019 Ferritin 38436 08/15/2019 Iron Binding Capacity Total 92726 2019 Iron Level 69256 08/15/2019 Partial Thromboplastin Time 54102 2019 Partial Thromboplastin Time 17270 2022 Partial Thromboplastin Time 12459 2021 Phosphorus (B) 09636 08/15/2019 Glucose Random 89732 09/16/2021 UA Reflex Micro, Reflex Cult 01638, 8101 5, 75481 08/15/2019 Calprotectin Fecal 08683 02/11/2023 Glucometer WBG--67387 09/16/2021 Glucometer WBG--19475 09/16/2021 Glucometer WBG--53435 09/17/2021 Glucometer WBG--28799 09/17/2021 Glucometer WBG--17053 09/17/2021 Glucometer WBG--19797 09/17/2021 Glucometer WBG--46451 09/17/2021 Glucometer WBG--32652 09/18/2021 Glucometer WBG--74293 09/18/2021 Glucometer WBG--73137 09/16/2021 Glucometer WBG--64237 09/16/2021 Crossmatch--09696 09/16/2021 COVID 19 PCR--59358 03/27/2020 Bladder scan 09/08/2019 Chest PA/Lat-79229 09/12/2021 CT L-Spine w/o Contrast incl Recon-21130 09/15/2021 Lumbosacral Spine AP/Lat-64096 2 Lumbosacral Spine AP/Lat-42448 2 Lumbosacral Spine Bending Views-87861 Electrocardiogram 12 Lead Tracing-79224 03/27/2020 zzzFluoroscopy 09/16/2021 Colonoscopy, High Risk Screening-G0105 0 09/16/2020 Diagnostic Colonoscopy-32867 02/11/2023 EGD, Upper GI Diagnostic-24281 3 Electrocardiogram (EKG) 09/02/2020 Electrocardiogram 12 Lead Tracing--52601 04/11/2020 Electrocardiogram (EKG) - 36477 09/04/19 22 Electrocardiogram (EKG) - 66419 04/08/20 22 VENIPUNCT, ROUTINE* 08/15/2019 Future Test Test Name Order Date CBC w\ Auto Diff 54025 08/23/2019 Comprehensive Metabolic Panel 46981 08/09 Electrocardiogram 12 Lead Tracing-66993 11/07/2019 Abdomen AP-64839 01/07/2020 Abdomen AP-77405 08/08/2021 Lumbosacral Spine Bending Views-97710 MRI Lumbar Spine w/o Cont-04578 09/08/[address] L-Spine w/o Contrast incl Recon-17751 09/15/2021 Chest PA/Lat-62664 01/05/2023 Electrocardiogram 12 Lead Tracing-20787 01/05/2023 CT L-Spine w/o Contrast Mazor Protocol-7 213001/05/2023 Insurance Providers Payer Name Payer Address Payer Phone Subscriber Number Group Number Insured Name Patient Relationship to Insured Coverage Start Date Coverage End Date [place] [address] [place] ANJEL JOE [id number] Anshu Hurt Self - patient is the insured [address] [place] [address] [address] [facility] [place] [id number] [phone] [id number] Anshu Hurt Self - patient is the insured MEDICAL (GENERAL) HISTORY Medical History History ICD Code Problem:Anemia (disorder) , Status :: Ac tive Problem:At risk for falls (finding) , St atus :: Active Problem:Benign hypertension (disorder) , Status :: Active Problem:Benign prostatic hyp ertroph with outflow obstruction (disorder) , Status :: Active Problem:Bipolar disorder (disorder) , St atus :: Active Problem:Chronic kidney disease stage 4 ( disorder) , Status :: Active Problem:Cobalamin deficiency (disorder) , Status :: Active Problem:Depressive disorder (disorder) , Status :: Active Problem:Diabetes mellitus type 2 (disord er) , Status :: Active Problem:Drug therapy finding (finding) , Status :: Active Problem:Hypercholesterolemia (disorder) , Status :: Active Problem:Hyperparathyroidism due to renal insufficiency (disorder) , Status :: Active Problem:Hyperphosphatemia (disorder) , S tatus :: Active Problem:Hyperuricemia withou t signs of inflammatory arthritis and tophaceous disease (disorder) , Status :: Active Problem:Hypothyroidism (disorder) , Stat us :: Active Problem:Iron deficiency anemia (disorder ) , Status :: Active Problem:Metabolic acidosis (disorder) , Status :: Active Problem:Microalbuminuria (finding) , Sta tus :: Active Problem:Pancreatic insufficiency (disord er) , Status :: Active Problem:Polyp of colon (disorder) , Stat us :: Active Problem:Vitamin B deficiency (disorder) , Status :: Active Problem:Anemia (disorder) , Status :: Ac tive Problem:Chronic depression (disorder) , Status :: Active Problem:Cobalamin deficiency (disorder) , Status :: Active Problem:Diabetes mellitus (disorder) , S tatus :: Active Problem:Exocrine pancreatic insufficienc y (disorder) , Status :: Active Problem:Fibromyalgia (disorder) , Status :: Active Problem:Hypertensive disorde r, systemic arterial (disorder) , Status :: Active Problem:Increased body mass index (findi ng) , Status :: Active Problem:Kidney stone (disorder) , Status :: Active Problem:Pancreatitis (disorder) , Status :: Active Currently on Dialysis Nephrolithiasis Bipolar 1 disorder F31.9 Anxiety F41.9 Heartburn (resolved 07/23/2011) undefine d Fibromyalgia (resolved 07/08/2012) Major depression, recurrent episode, mod erate (resolved 07/08/2012) Allergic rhinitis, other allergen-induce d (resolved 07/22/2012) Insomnia (resolved 07/22/2012) Situational stress with anxiety (resolve d 08/05/2012) Atypical skin lesion (resolved 2) Benign essential tremor (resolved 2010) Acquired hypothyroidism (resolved 2010) Callus (resolved 11/06/2011) Tinea pedis (resolved 09/04/2011) Tremulousness (resolved 11/06/2011) Nausea and vomiting (resolved 05/14/2011 ) Renal calculus (resolved 01/25/2012) Restless leg syndrome (resolved 02/05/20 11) Hx covid 01/2022 Surgical History Surgery Date(Month/Year) appendectomy, cholecystectomy, TURP Cholecystectomy carpal tunnel release, right 1975 polyp removal kidney stone removal x2 renal calculus lithotripsy, March 2020 06/13/2019 Vasectomy Arthroscopy of Shoulder with excision of distal clavicle, left Cystoscopy Appendectomy carpal tunnel release, left 11/2019 coronary artery stent x1 05/2020 Peritoneal Dialysis Catheter lumbar surgery 2020 deep brain stim 2020 cardiac stents 02/2022 Bypass Surgery 01/2023 Hospitalization History Reason Date(Month/Year) cardiac stents pneumonia Surgical Hx Peritoneal drain placed 08/18/2019 bypass surgery [facility] 01/2023
--- NOTE | 2023-06-27 15:04 | USCV_ITS ---
Anshu Hurt Age: 73 Gender: M : 1950 Exam Date: 06/27/2023 16:18 Ordering Phys: Rony Duran MD Technologist: Jayme Chow Exam Location: [facility] Indication: Nstemi BP: 116 / 64 HR: 65 Rhythm: Sinus Technical Quality: Adequate MEASUREMENTS (Male / Female) Normal Values 2D ECHO LVOT Diameter 2.0 cm LV Ejection Fraction MOD 2C 42.1 % LV Ejection Fraction 2C AL 41.7 % LA Diameter 4.1 cm LA Width 3.8 cm LA Height 5.9 cm RA Width 3.7 cm RA Height 5.4 cm Aorta at Sinotubular Diameter 2.4 cm IVC Diameter 1.5 cm M-MODE Aortic Annulus Diameter 2.9 cm LA Ao Ratio MM 1.4 MV E Point Septal Separation 1.5 cm DOPPLER AV Peak Velocity 275.0 cm/s LVOT Peak Velocity 81.0 cm/s AV Area Cont Eq vti 1.1 cm squared AV Area Cont Eq pk 0.9 cm squared MV Peak Velocity 119.0 cm/s MV Area PHT 3.5 cm squared Mitral E to A Ratio 0.7 MV E' Velocity 40.5 cm/s Mitral E to MV E' Ratio 9.6 Mitral E to LV E' Lateral Ratio 7.4 Mitral E to LV E' Septal Ratio 13.6 TR Peak Velocity 294.1 cm/s TR Peak Gradient 34.6 mmHg TR Mean Velocity 210.5 cm/s TR Mean Gradient 20.6 mmHg TR Velocity Time Integral 65.1 cm Right Atrial Pressure 3.0 mmHg Pulmonary Artery Systolic Pressu 37.6 mmHg PV Peak Velocity 83.0 cm/s RV Acceleration Time 0.1 s RV Ejection Time 0.3 s RV AcT/ET 0.4 FINDINGS Left Ventricle Diffuse hypokinesia of the left ventricular ejection fraction of 42%. Grade I/IV diastolic dysfunction (abnormal relaxation filling pattern), normal to mildly elevated filling pressures. Right Ventricle The right ventricle is normal in size and function. Right Atrium The right atrium is normal in size. Left Atrium Moderately increased left atrial size. Mitral Valve Thickened mitral valve. Mild mitral annular calcification. Mild mitral valve regurgitation. Aortic Valve Thickened aortic valve. Moderate aortic valve stenosis, mean gradient 14.8 mmHg, DANIELLA 1.1 cm squared. Peak velocity 2.75 m/s Tricuspid Valve Mild to moderate eccentric tricuspid valve regurgitation. estimated pulmonary artery peak systolic pressure 38 mmHg Pulmonic Valve No gross abnormalities noted Pericardium Normal pericardium without effusion. Aorta Normal aortic annulus size. IVC Normal inferior vena cava. CONCLUSIONS Diffuse hypokinesia of the left ventricular ejection fraction of 40%. Grade I/IV diastolic dysfunction (abnormal relaxation filling pattern), normal to mildly elevated filling pressures. Moderately increased left atrial size. Thickened mitral valve. Mild mitral annular calcification. Mild mitral valve regurgitation. Moderate aortic valve stenosis, mean gradient 14.8 mmHg, DANIELLA 1.1 cm squared. Peak velocity 2.75 m/s. Mild to moderate eccentric tricuspid valve regurgitation. Estimated pulmonary artery peak systolic pressure 38 mmHg. There are no intracardiac masses. There is no pericardial effusion. Compared to the previous study from 12/28/2022, there is slight drop in the LV ejection fraction from 47% to 42% Dr Lucius Stapleton MD [facility] (Electronically Signed) Final Date: 27 June 2023 21:20 S
--- NOTE | 2023-06-27 15:04 | P.PN_ITS ---
Subjective Subjective: Patient was seen this morning, he has received peritoneal dialysis, he tells me and his tells me at bedside his swelling has significantly improved, his facial swelling is improved he feels a lot better, denies any chest pain, no palpitations, Vitals/I&O/Wt Last Vital Signs Temp 97.6 F 06/27/23 12:00 Pulse 68 06/27/23 14:26 Resp 18 06/27/23 14:26 BP 116/64 06/27/23 12:00 Pulse Ox 96 06/27/23 14:26 O2 Del Method Room Air 06/27/23 14:26 06/27/23 06/27/23 06/27/23 06:59 14:59 22:59 Intake Total 600 / 600 Balance 600 / 600 Weight last 48 hrs Weight 81.873 kg Weight 81.873 kg Weight 81.647 kg Physical Exam Const: COMMON NORMALS: no acute distress and patient oriented x3 Resp: COMMON NORMALS: normal respiratory effort, No retractions, No use of accessory muscles and clear to auscultation bilaterally AUSCULTATION: clear to auscultation bilaterally Cardio: COMMON NORMALS: regular rate, regular rhythm, S1 normal heart sound present and S2 normal heart sound present RATE: regular rate RHYTHM: re gular rhythm HEART SOUNDS: S1 normal heart sound present and S2 normal heart sound present GI: COMMON NORMALS: Normal to inspection, nondistended, normoactive bowel sounds present and non-tender OTHER: PD catheter in place Extremity: COMMON NORMALS: no pedal edema Neuro: COMMON NORMALS: patient oriented x3 Psych: COMMON NORMALS: mental status grossly normal Data 06/27/23 01:30 06/27/23 01:30 Micro: Microbiology 06/26/23 21:29 Blood Culture - Preliminary Blood SPECIMEN COLLECTED 06/26/23 21:34 Blood Culture - Preliminary Blood SPECIMEN COLLECTED A&P Assessment and plan (1) SOB (shortness of breath): Likely secondary to systolic CHF exacerbation, fluid overload, pulm edema ? Insetting of congestive systolic heart failure leading to pulmonary edema due to inadequate dialysis. Patient does peritoneal dialysis at home. ? Continue PD, here as patient declines dialysis Oxygen supplementation keeping saturation over 90%. DuoNebs every 6 hour. Patient does have bilateral pleural effusion. Seems to be chronic. Patient has had recurrent thoracentesis in the past. No signs of infection for now. Does not have any leukocytosis, no fever. For now we will hold off on IV antibiotics. Check respiratory viral panel. Negative so far Check sputum culture, procalcitonin. If patient has fever will start on antibiotics for hospital-acquired pneumonia. Check CTA ? CT/CT angio chest PE protcl [id number] IMPRESSION: 1. ? No findings acute pulmonary embolism. 2. ? There is cardiomegaly with pulmonary venous distension. No interstitial edema. 3. ? Changes of myocardial revascularization are noted. Median sternotomy has not healed. Correlate with timing of surgery. No bony destructive change is evident. 4. ? Bilateral pleural effusions. Pleural fluid on the right extends into the major and minor fissures, potentially loculated. No significant residual atelectasis at the right lung base. 5. ? Cirrhosis with ascites. ? (2) Pulmonary edema: (3) Congestive heart failure: Last known EF of 45% in 12/29 with mild MR, mild TR. Strict input output charting, daily weights. (4) End-stage renal disease on peritoneal dialysis: Nephrology consulted from the ER. Continue with current peritoneal dialysis. Most likely patient will need to be switched to hemodialysis given inadequate dialysis, increased body weight of 20 pounds in the last 10 days, increased blood pressure recently. Discussed in detail with patient. Patient does not want to go over hemodialysis and would rather go hospice if hemodialysis is required. Have advised patient discussed in detail with nephrology. Continue other chronic home medications. Monitor BMP daily. (5) S/P CABG (coronary artery bypass graft): Within the last 6 months. Continue with home dose of aspirin, statin, Plavix. (6) Hypertension: Goal blood pressure less than 140/90 mmHg. Blood pressures as per the has been trending up. For now continue with home dose of amlodipine 5 mg, clonidine 0.1 every 8 as needed, Imdur 120 mg daily, metoprolol succinate 25 mg daily. Uptitrate as for goal blood pressures. (7) Adult failure to thrive: (8) NSTEMI (non-ST elevated myocardial infarction): Likely secondary to fluid overload, systolic CHF, likely type II however cannot rule out underlying cardiac etiology given risk factors as above ? Continue telemetry monitoring Plan CODE STATUS: Discussed in detail with patient. He does not want any heroic measures. DNR/DNI. He wants to continue with peritoneal dialysis for now. In case he requires hemodialysis he would rather go hospice. Heparin 5000 every 12 hourly for DVT prophylaxis Protonix for PUD prophylaxis Renal dialysis diet Attestations Medical Necessity Statement*: Patient requires hospitalization for fluid overload, systolic CHF exacerbation, pulm edema, NSTEMI, inpatient, greater than 2 midnights and High MDM includes number and complexity of problems actively addressed during encounter and amount and/or complexity of data reviewed/ordered as documented Diagnoses SOB (shortness of breath) R06.02 Pulmonary edema J81.1 Congestive heart failure I50.9 End-stage renal disease on peritoneal dialysis N18.6; Z99.2 S/P CABG (coronary artery bypass graft) Z95.1 Hypertension I10 Adult failure to thrive R62.7 NSTEMI (non-ST elevated myocardial infarction) I21.4
[2023-06-27] MEDS: ropinirole 0.25 mg Tablet 0.5 MG PO (16:35)
[2023-06-27] MEDS: magnesium lactate 84 mg Tablet PO (18:08)
[2023-06-27] MEDS: pregabalin 100 mg Capsule PO (18:09)
--- NOTE | 2023-06-27 21:26 | PC.NURSE ---
sugar was 197 according to patients dexcom reading
[2023-06-28] VITALS (15 sets, daily range): BP systolic 113–150; BP diastolic 70–90; PULSE 56–83; RESP 15–18; TEMP 36.3–36.8; O2SAT 90–96
[2023-06-28] MEDS: ipratropium-albuterol 3 mL Neb INHALATION ×4 (02:49→20:37)
--- NOTE | 2023-06-28 06:33 | ECG_ITS ---
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 Measurements Intervals [place] Rate: 67 P: 55 NE: 200 QRS: -13 QRSD: 96 T: 168 QT: 439 QTc: 465 Interpretive Statements SINUS RHYTHM WITH SINUS ARRHYTHMIA MINIMAL VOLTAGE CRITERIA FOR LVH, CONSIDER NORMAL VARIANT [MEETS CRITERIA IN ONE OF: R(aVL), S(V1), R(V5), R(V5/V6)+S(V1)] SEPTAL MYOCARDIAL INFARCTION , PROBABLY OLD [40+ ms Q WAVE IN V1/V2] Compared to ECG 06/26/2023 19:48:14 No significant change. Electronically Signed On 06-28-2023 14:45:55 INDUSTRIAL MACHINE OPERATOR by Sandoval Aguirre M.D. [id number]
[2023-06-28] MEDS: levothyroxine 150 mcg Tablet PO (06:37)
--- NOTE | 2023-06-28 07:00 | PC.NURSE ---
blood sugar was 212
[2023-06-28 08:14] LABS: Basophils % 0.2 %; Eosinophils # 0.2 10^3/uL (0.0-0.8); Eosinophils % 3.6 %; Hematocrit 37.5 % (37-53); Lymphocytes % 14.9 %; Mean Corpuscular HGB Conc 31.7 g/dL (30-55); Mean Corpuscular Hemoglobin 29.9 pg (27-33); Mean Corpuscular Volume 94.2 fl (82-101); Mean Platelet Volume 10.5 fL (7.4-10.4); Monocytes # 0.6 10^3/uL (0.2-0.9); Monocytes % 9.1 %; Neutrophils # 4.63 10^3/uL (1.8-7.7); Neutrophils % 71.7 %; Nucleated Red Blood Cells % 0 %; Platelet Count 130 10^3/cmm (157-399); Red Blood Count 3.98 10^6/uL (3.85-5.65); White Blood Count 6.45 10^3/uL (3.29-11.43)
[2023-06-28] MEDS: isosorbide mononitrate ER 60 mg Tablet 120 MG PO (08:21)
[2023-06-28] MEDS: insulin lispro 100 unit/1 mL SUBCUT ×2 (08:21→17:51)
[2023-06-28] MEDS: metoprolol succinate ER (24 HR) 25 mg Tablet PO (08:22)
[2023-06-28] MEDS: magnesium lactate 84 mg Tablet PO ×2 (08:22→17:50)
[2023-06-28 08:33] LABS: Alanine Aminotransferase 45 U/L (0-41); Albumin Level 2.7 g/dL (3.5-5.2); Alkaline Phosphatase 108 U/L (40-130); Anion Gap 18.6 (5-19); Aspartate Amino Transferase 39 U/L (0-40); Blood Urea Nitrogen 30 mg/dL (8-23); Calcium 8.2 mg/dL (8.5-10.5); Carbon Dioxide 25 mmol/L (22-29); Chloride 95 mmol/L (98-107); Globulin 2.4 g/dL (1.3-4.6); Glucose 119 mg/dL (65-115); Magnesium 1.7 mg/dL (1.7-2.3); Osmolality Calculated 287 mOsm/kg (285-295); Potassium 3.6 mmol/L (3.5-5.1); Sodium 135 mmol/L (136-145); Total Bilirubin 0.3 mg/dL (0.15-1.2); Total Protein 5.1 g/dL (6.6-8.7)
[2023-06-28 09:17] LABS: NT Pro B Type Natriuretic Pept > 70000 pg/mL (0-125)
--- NOTE | 2023-06-28 12:01 | P.PN_ITS ---
Subjective Subjective: feeling much better, less short of breath is performing PD, used 4.25 and 2.5% solutions last evening. UF 3226 ml Since admission, UF 10L Vitals/I&O/Wt Last Vital Signs Temp 97.6 F 06/28/23 07:43 Pulse 70 06/28/23 09:24 Resp 18 06/28/23 08:00 BP 149/84 06/28/23 07:43 Pulse Ox 96 06/28/23 08:00 O2 Del Method Room Air 06/28/23 08:00 06/27/23 06/28/23 06/28/23 22:59 06:59 14:59 Intake Total 360 / 960 120 / 1080 Balance 360 / 960 120 / 1080 Weight last 48 hrs Weight 80.83 kg Weight 81.873 kg Weight 81.873 kg Weight 81.647 kg Physical Exam Const: COMMON NORMALS: alert Extremity: COMMON NORMALS: no pedal edema Neuro: SENSORIUM/ORIENTATION: Yes alert Data 06/28/23 07:51 06/28/23 07:51 Micro: Microbiology 06/26/23 21:29 Blood Culture - Preliminary Blood NEGATIVE TO DATE 06/26/23 21:34 Blood Culture - Preliminary Blood NEGATIVE TO DATE Other data: seen via telemedicine with assistance of RN at bedside A&P Assessment and plan (1) ESRD (end stage renal disease): Plan 1. ESRD on peritoneal dialysis 2. Volume overload: improving, use all 2.5% solutions tonight. Monitor BS due to risk of hyerglycemia, increase insulin as needed 3. Poor nutrition: add protein supplements 4. Mild hyponatremia due to volume overload, improved 5. Hyperphosphatemia, resume calcium acetate He would like to keep his appointment with outpatient director of content and programming scheduled on WednesdayJun 29 Attestations Medical Necessity Statement*: per primary service Time Spent in Patient Care: 16 - 35 minutes Coding Level of Care Code Acute Code for Chg Fwd Diagnoses ESRD (end stage renal disease) N18.6
[2023-06-28] MEDS: heparin 5,000 unit/mL INJ 1 mL 5000 UNIT SUBCUT ×2 (12:37→23:45)
--- NOTE | 2023-06-28 17:22 | P.PN_ITS ---
Subjective Subjective: Patient was seen this morning, he feels significantly better, no significant shortness of breath, his edema has improved, he denies any chest pain, no palpitations, we discussed his echocardiogram findings, but he denies any chest pain, does report shortness of breath with exertion, currently on room air, Vitals/I&O/Wt Last Vital Signs Temp 98 F 06/28/23 12:00 Pulse 79 06/28/23 15:52 Resp 18 06/28/23 15:52 BP 134/78 06/28/23 12:00 Pulse Ox 93 06/28/23 15:52 O2 Del Method Room Air 06/28/23 15:52 06/28/23 06/28/23 06/28/23 06:59 14:59 22:59 Intake Total 120 / 1080 240 / 240 Balance 120 / 1080 240 / 240 Weight last 48 hrs Weight 82.327 kg Weight 80.83 kg Weight 81.873 kg Weight 81.873 kg Physical Exam Const: COMMON NORMALS: no acute distress and patient oriented x3 Resp: COMMON NORMALS: normal respiratory effort, No retractions, No use of accessory muscles and clear to auscultation bilaterally AUSCULTATION: clear to auscultation bilaterally Cardio: COMMON NORMALS: regular rate, regular rhythm, S1 normal heart sound present and S2 normal heart sound present RATE: regular rate RHYTHM: regular rhythm HEART SOUNDS: S1 normal heart sound present and S2 normal heart sound present GI: COMMON NORMALS: Normal to inspection, nondistended, normoactive bowel sounds present and non-tender Extremity: COMMON NORMALS: no pedal edema Neuro: COMMON NORMALS: patient oriented x3 Psych: COMMON NORMALS: mental status grossly normal Data 06/28/23 07:51 06/28/23 07:51 Micro: Microbiology 06/26/23 21:29 Blood Culture - Preliminary Blood NEGATIVE TO DATE 06/26/23 21:34 Blood Culture - Preliminary Blood NEGATIVE TO DATE A&P Assessment and plan (1) SOB (shortness of breath): Likely secondary to systolic CHF exacerbation, fluid overload, pulm edema ? Insetting of congestive systolic heart failure leading to pulmonary edema due to inadequate dialysis. Patient does peritoneal dialysis at home. ? Continue PD, here as patient declines dialysis Oxygen supplementation keeping saturation over 90%. DuoNebs every 6 hour. Patient does have bilateral pleural effusion. Seems to be chronic. Patient has had recurrent thoracentesis in the past. No signs of infection for now. Does not have any leukocytosis, no fever. For now we will hold off on IV antibiotics. Check respiratory viral panel. Negative so far Check sputum culture, procalcitonin. If patient has fever will start on antibiotics for hospital-acquired pneumonia. Check CTA ? CT/CT angio chest PE protcl [id number] IMPRESSION: 1. ? No findings acute pulmonary embolism. 2. ? There is cardiomegaly with pulmonary venous distension. No interstitial edema. 3. ? Changes of myocardial revascularization are noted. Median sternotomy has not healed. Correlate with timing of surgery. No bony destructive change is evident. 4. ? Bilateral pleural effusions. Pleural fluid on the right extends into the major and minor fissures, potentially loculated. No significant residual atelectasis at the right lung base. 5. ? Cirrhosis with ascites. ? (2) Pulmonary edema: (3) Congestive heart failure: Last known EF of 45% in 12/29 with mild MR, mild TR. Strict input output charting, daily weights. (4) End-stage renal disease on peritoneal dialysis: Nephrology consulted from the ER. Continue with current peritoneal dialysis. Most likely patient will need to be switched to hemodialysis given inadequate dialysis, increased body weight of 20 pounds in the last 10 days, increased blood pressure recently. Discussed in detail with patient. Patient does not want to go over hemodialysis and would rather go hospice if hemodialysis is required. Have advised patient discussed in detail with nephrology. Continue other chronic home medications. Monitor BMP daily. (5) S/P CABG (coronary artery bypass graft): Within the last 6 months. Continue with home dose of aspirin, statin, Plavix. (6) Hypertension: Goal blood pressure less than 140/90 mmHg. Blood pressures as per the has been trending up. For now continue with home dose of amlodipine 5 mg, clonidine 0.1 every 8 as needed, Imdur 120 mg daily, metoprolol succinate 25 mg daily. Uptitrate as for goal blood pressures. (7) Adult failure to thrive: (8) NSTEMI (non-ST elevated myocardial infarction): Likely secondary to fluid overload, systolic CHF, likely type II however cannot rule out underlying cardiac etiology given risk factors as above ? Continue telemetry monitoring ?CONCLUSIONS ?Diffuse hypokinesia of the left ventricular ejection fraction of ?40%. Grade I/IV diastolic dysfunction (abnormal relaxation ?filling pattern), normal to mildly elevated filling pressures. ?Moderately increased left atrial size. ?Thickened mitral valve. Mild mitral annular calcification. Mild ?mitral valve regurgitation. ?Moderate aortic valve stenosis, mean gradient 14.8 mmHg, DANIELLA 1.1 ?cm squared.? Peak velocity 2.75 m/s. ?Mild to moderate eccentric tricuspid valve regurgitation. ?Estimated pulmonary artery peak systolic pressure 38 mmHg. ?There are no intracardiac masses. ?There is no pericardial effusion. ?Compared to the previous study from 12/28/2022, there is slight ?drop in the LV ejection fraction from 47% to 42% ? Continue aspirin, statin, Plavix, ? Continue to clinically monitor Plan CODE STATUS: Discussed in detail with patient. He does not want any heroic joselito sures. DNR/DNI. He wants to continue with peritoneal dialysis for now. In case he requires hemodialysis he would rather go hospice. Heparin 5000 every 12 hourly for DVT prophylaxis Protonix for PUD prophylaxis Renal dialysis diet Attestations Medical Necessity Statement*: Patient requires hospitalization for fluid overload, requiring peritoneal dialysis, Diagnoses SOB (shortness of breath) R06.02 Pulmonary edema J81.1 Congestive heart failure I50.9 End-stage renal disease on peritoneal dialysis N18.6; Z99.2 S/P CABG (coronary artery bypass graft) Z95.1 Hypertension I10 Adult failure to thrive R62.7 NSTEMI (non-ST elevated myocardial infarction) I21.4
[2023-06-28] MEDS: sertraline 50 mg Tablet 75 MG PO (17:50)
[2023-06-28] MEDS: atorvastatin 40 mg Tablet PO (17:50)
[2023-06-28] MEDS: aspirin 81 mg EC Tablet PO (17:51)
[2023-06-28] MEDS: pantoprazole DR 40 mg Tablet PO (17:51)
[2023-06-28] MEDS: clopidogrel 75 mg Tablet PO (17:51)
[2023-06-28] MEDS: pregabalin 100 mg Capsule PO (17:51)
[2023-06-28] MEDS: amlodipine 5 mg Tablet PO (17:51)
[2023-06-28] MEDS: ropinirole 0.25 mg Tablet 0.5 MG PO (20:06)
[2023-06-28] MEDS: zolpidem 5 mg Tablet 10 MG PO (20:06)
[2023-06-29 03:35] VITALS: BP 149/68; PULSE 69; RESP 17; TEMP 36.6; O2SAT 93
[2023-06-29 05:19] VITALS: PULSE 61
[2023-06-29 05:36] LABS: Basophils % 0.2 %; Eosinophils # 0.2 10^3/uL (0.0-0.8); Eosinophils % 3.8 %; Hematocrit 34.8 % (37-53); Lymphocytes # 0.9 10^3/uL (0.8-4.8); Lymphocytes % 14.7 %; Mean Corpuscular HGB Conc 31.9 g/dL (30-55); Mean Corpuscular Hemoglobin 29.7 pg (27-33); Mean Platelet Volume 10.1 fL (7.4-10.4); Monocytes # 0.6 10^3/uL (0.2-0.9); Monocytes % 10.3 %; Neutrophils # 4.27 10^3/uL (1.8-7.7); Neutrophils % 70.7 %; Nucleated Red Blood Cells % 0 %; Platelet Count 121 10^3/cmm (157-399); Red Blood Count 3.74 10^6/uL (3.85-5.65); Red Cell Distribution Width 14.7 % (12.1-15.1); White Blood Count 6.04 10^3/uL (3.29-11.43)
[2023-06-29 06:00] VITALS: BMI 24.9
[2023-06-29] MEDS: levothyroxine 150 mcg Tablet PO (06:12)
[2023-06-29 06:33] LABS: Alanine Aminotransferase 38 U/L (0-41); Albumin Level 2.4 g/dL (3.5-5.2); Alkaline Phosphatase 102 U/L (40-130); Anion Gap 18.6 (5-19); Aspartate Amino Transferase 32 U/L (0-40); Blood Urea Nitrogen 27 mg/dL (8-23); Calcium 7.7 mg/dL (8.5-10.5); Carbon Dioxide 23 mmol/L (22-29); Chloride 98 mmol/L (98-107); Globulin 2.4 g/dL (1.3-4.6); Glucose 210 mg/dL (65-115); Magnesium 1.7 mg/dL (1.7-2.3); Osmolality Calculated 293 mOsm/kg (285-295); Phosphorus 7.3 mg/dL (2.5-4.5); Potassium 3.6 mmol/L (3.5-5.1); Sodium 136 mmol/L (136-145); Total Bilirubin 0.3 mg/dL (0.15-1.2); Total Protein 4.8 g/dL (6.6-8.7)
[2023-06-29 07:18] LABS: NT Pro B Type Natriuretic Pept > 70000 pg/mL (0-125)
[2023-06-29] MEDS: ipratropium-albuterol 3 mL Neb INHALATION (07:30)
[2023-06-29 07:32] VITALS: PULSE 71; RESP 16; O2SAT 93
[2023-06-29 08:00] VITALS: BP 152/72; PULSE 73; RESP 17; TEMP 36.8; O2SAT 93
[2023-06-29] MEDS: isosorbide mononitrate ER 60 mg Tablet 120 MG PO (09:33)
[2023-06-29] MEDS: metoprolol succinate ER (24 HR) 25 mg Tablet PO (09:33)
[2023-06-29] MEDS: magnesium lactate 84 mg Tablet PO (09:33)
[2023-06-29] MEDS: ropinirole 0.25 mg Tablet 0.5 MG PO (09:36)
[2023-06-29 10:00] VITALS: BMI 24.9
--- NOTE | 2023-06-29 10:37 | PM.DCS ---
Discharge Providers Date of Admission: 06/26/23 22:43 Date of Discharge: June 29, 2023 Attending Provider at Admission: Rik Guevara MD Attending Provider at Discharge: Rony Duran MD Primary Care Provider: Irene Jones Diagnoses at Discharge Discharge Diagnosis (1) SOB (shortness of breath): Status: Acute (2) Pulmonary edema: Status: Acute (3) Congestive heart failure: Status: Acute (4) End-stage renal disease on peritoneal dialysis: Status: Acute (5) S/P CABG (coronary artery bypass graft): Status: Acute (6) Hypertension: Status: Acute (7) Adult failure to thrive: Status: Acute (8) NSTEMI (non-ST elevated myocardial infarction): Status: Resolved Reason for Visit Reason for Visit: Cp, discomfort, SOB Hospital Course Hospital Course Anshu Hurt is a 73 year old male with past medical history of end-stage renal disease on peritoneal dialysis CAD post recent CABG in last 6 months for left main vessel disease, hypertension, systolic congestive heart failure with last known EF of 45%, frequent thoracentesis who came to the ER for worsening difficulty in breathing., The patient presented to [facility] for shortness of breath secondary to fluid overload pulm edema, CHF exacerbation, in the setting of congestive systolic CHF, received PD as inpatient, overall patient clinically improved, patient declined hemodialysis, will be discharged on PD as outpatient, follow-up with nephrology, follow-up with primary care provider in 1 week, Echocardiogram done during this hospitalization, showed EF of 42% with diffuse hypokinesis of left ventricle, did have elevated troponins, no acute ST-T wave changes on EKG, no chest pain complaints, recent history of CABG, no chest pain complaints during his hospitalization, continue aspirin, statin, Plavix, if he has any chest pain to go to emergency room, follow-up with cardiology in 1 week Physical Exam Const: COMMON NORMALS: no acute distress and patient oriented x3 Resp: COMMON NORMALS: normal respiratory effort, No retractions, No use of accessory muscles and clear to auscultation bilaterally AUSCULTATION: clear to auscultation bilaterally Cardio: COMMON NORMALS: regular rate, regular rhythm, S1 normal heart sound present and S2 normal heart sound present RATE: regular rate RHYTHM: regular rhythm HEART SOUNDS: S1 normal heart sound present and S2 normal heart sound present GI: COMMON NORMALS: Normal to inspection, nondistended, normoactive bowel sounds present and non-tender Extremity: COMMON NORMALS: no pedal edema Neuro: COMMON NORMALS: patient oriented x3 Psych: COMMON NORMALS: mental status grossly normal Discharge Data Studies Completed and Pending Completed Studies During Hospitalization Category Date Time Status CT angio chest PE protcl [id number] Urgent Cat Scan 06/26/23 22:29 Completed XR chest 1V [id number] Stat Exams 06/26/23 17:55 Completed CV. echo complete* [id number] Routine Ultrasound 06/27/23 15:04 Completed US venous duplex lower extremity RT [CV venous duplex Ultrasound 06/26/23 23:28 [place] [id number]] Routine Pending at discharge Category Date Time Status Blood Culture Stat Lab 06/26/23 21:29 Results Complete Blood Count w/Auto AM LABS Lab 06/30/23 04:00 Ordered Comprehensive Metabolic Panel AM LABS Lab 06/30/23 04:00 Ordered Magnesium AM LABS Lab 06/30/23 04:00 Ordered NT Pro B Type Natriuretic Pept QAM Lab 06/30/23 06:00 Ordered Phosphorus AM LABS Lab 06/30/23 04:00 Ordered Sputum Culture and Gram Stain Stat Lab 06/27/23 00:08 Uncollected Urinalysis Stat Lab 06/26/23 17:56 Uncollected Radiology Impressions Chest X-Ray 06/26/23 17:55 IMPRESSION: 1. Improving but not resolved left basilar reticular opacities. 2. Persistent opacity at the right lung base. There is probably right pleural fluid tracking into the major fissure which contributes to overall density at the right base. Chest CTA 06/26/23 22:29 IMPRESSION: 1. No findings acute pulmonary embolism. 2. There is cardiomegaly with pulmonary venous distension. No interstitial edema. 3. Changes of myocardial revascularization are noted. Median sternotomy has not healed. Correlate with timing of surgery. No bony destructive change is evident. 4. Bilateral pleural effusions. Pleural fluid on the right extends into the major and minor fissures, potentially loculated. No significant residual atelectasis at the right lung base. 5. Cirrhosis with ascites. Venous Duplex 06/26/23 23:28 IMPRESSION: No evidence of acute deep venous thrombosis in either lower extremity. Laboratory Results WBC 6.04 10^3/uL (3.29-11.43) 06/29/23 05:12 RBC 3.74 10^6/uL (3.85-5.65) L 06/29/23 05:12 Hgb 11.10 g/dL (11.27-16.99) L 06/29/23 05:12 Hct 34.8 % (37-53) L 06/29/23 05:12 MCV 93.0 fl (82-101) 06/29/23 05:12 MCH 29.7 pg (27-33) 06/29/23 05:12 MCHC 31.9 g/dL (30-55) 06/29/23 05:12 RDW 14.7 % (12.1-15.1) 06/29/23 05:12 Plt Count 121 10^3/cmm (157-399) L 06/29/23 05:12 MPV 10.1 fL (7.4-10.4) 06/29/23 05:12 Neut % (Auto) 70.7 % 06/29/23 05:12 Lymph % (Auto) 14.7 % 06/29/23 05:12 [place] % (Auto) 10.3 % 06/29/23 05:12 Eos % (Auto) 3.8 % 06/29/23 05:12 Baso % (Auto) 0.2 % 06/29/23 05:12 Neut # (Auto) 4.27 10^3/uL (1.8-7.7) 06/29/23 05:12 Lymph # (Auto) 0.9 10^3/uL (0.8-4.8) 06/29/23 05:12 [place] # (Auto) 0.6 10^3/uL (0.2-0.9) 06/29/23 05:12 Eos # (Auto) 0.2 10^3/uL (0.0-0.8) 06/29/23 05:12 Baso # (Auto) 0.0 10^3/uL (0.0-0.1) 06/29/23 05:12 Nucleated RBC % (auto) 0 % 06/29/23 05:12 Nucleated RBCs # 0.0 /100WBC 06/29/23 05:12 Sodium 136 mmol/L (136-145) 06/29/23 05:12 Potassium 3.6 mmol/L (3.5-5.1) 06/29/23 05:12 Chloride 98 mmol/L (98-107) 06/29/23 05:12 Carbon Dioxide 23 mmol/L (22-29) 06/29/23 05:12 Anion Gap 18.6 (5-19) 06/29/23 05:12 BUN 27 mg/dL (8-23) H 06/29/23 05:12 Creatinine 7.6 mg/dL (0.7-1.2) H* 06/29/23 05:12 GFR Calculation Not Reportable 06/29/23 05:12 Glucose 210 mg/dL (65-115) H 06/29/23 05:12 Estimat Average Glucose 143 06/27/23 01:30 Hemoglobin A1c 6.6 % (4.0-6.0) H 06/27/23 01:30 Calculated Osmolality 293 mOsm/kg (285-295) 06/29/23 05:12 Lactic Acid 1.3 mmol/L (0.5-2.2) 06/26/23 21:34 Calcium 7.7 mg/dL (8.5-10.5) L 06/29/23 05:12 Phosphorus 7.3 mg/dL (2.5-4.5) H 06/29/23 05:12 Magnesium 1.7 mg/dL (1.7-2.3) 06/29/23 05:12 Total Bilirubin 0.3 mg/dL (0.15-1.2) 06/29/23 05:12 AST 32 U/L (0-40) 06/29/23 05:12 ALT 38 U/L (0-41) 06/29/23 05:12 Alkaline Phosphatase 102 U/L (40-130) 06/29/23 05:12 Troponin T Baseline 241 ng/L (0-15) H* 06/26/23 18:07 Troponin T 120 Minute 236.7 ng/L (0-15) H 06/26/23 19:46 Delta Troponin T -4.3 ABS# (0-10) L 06/26/23 19:46 Troponin T Hi Sens 6Hr 236.2 ng/L (0-15) H 06/26/23 01:30 Troponin T Hi Sens 6Hr Delta -4.80 ng/L (0-12) L 06/26/23 01:30 NT-Pro-B Natriuret Pep > 05522 pg/mL (0-125) H 06/29/23 05:12 Total Protein 4.8 g/dL (6.6-8.7) L 06/29/23 05:12 Albumin 2.4 g/dL (3.5-5.2) L 06/29/23 05:12 Globulin 2.4 g/dL (1.3-4.6) 06/29/23 05:12 Triglycerides 78 mg/dL (0-150) 06/27/23 01:30 Cholesterol 156 mg/dL (0-200) 06/27/23 01:30 LDL Cholesterol, Calc 45 mg/dL (50-129) L 06/27/23 01:30 HDL Cholesterol 95 mg/dL (60-100) 06/27/23 01:30 LDL/HDL Ratio 0.47 RATIO (0.00-3.22) 06/27/23 01:30 Cholesterol/HDL Ratio 1.64 mg/dL (1.0-5.00) 06/27/23 01:30 Procalcitonin 0.67 ng/mL (0-0.5) H 06/26/23 00:00 TSH 9.16 uIU/mL (0.27-4.20) H 06/26/23 00:00 Free T4 0.75 ng/dL (0.82-1.77) L 06/27/23 01:30 Nasal Influ A H1 2008 PCR Not detected (NOT DETECT) 06/26/23 21:52 Adenovirus (PCR) Not detected (NOT DETECT) 06/26/23 21:52 C. pneumoniae DNA (PCR) Not detected (NOT DETECT) 06/26/23 21:52 Coronavirus 229E (PCR) Not detected (NOT DETECT) 06/26/23 21:52 Human Metapneumovir PCR Not detected (NOT DETECT) 06/26/23 21:52 Influenza A (H1) PCR Not detected (NOT DETECT) 06/26/23 21:52 Influenza A (H3) PCR Not detected (NOT DETECT) 06/26/23 21:52 Influenza Type A (PCR) Not detected (NOT DETECT) 06/26/23 21:52 Influenza Type B (PCR) Not detected (NOT DETECT) 06/26/23 21:52 M. pneumoniae (PCR) Not detected (NOT DETECT) 06/26/23 21:52 Parainfluenza 1 (PCR) Not detected (NOT DETECT) 06/26/23 21:52 Parainfluenza 2 (PCR) Not detected (NOT DETECT) 06/26/23 21:52 Parainfluenza 3 (PCR) Not detected (NOT DETECT) 06/26/23 21:52 Parainfluenza 4 (PCR) Not detected (NOT DETECT) 06/26/23 21:52 RSV Type A (PCR) Not detected (NOT DETECT) 06/26/23 21:52 RSV Type B (PCR) Not detected (NOT DETECT) 06/26/23 21:52 Entero/Rhino (PCR) Not detected (NOT DETECT) 06/26/23 21:52 SARS-CoV-2 (PCR) Not detected (NOT DETECT) 06/26/23 21:52 Vitals Last Vital Signs Temp 98.2 F 06/29/23 08:00 Pulse 73 06/29/23 08:00 Resp 17 06/29/23 08:00 BP 152/72 06/29/23 08:00 Pulse Ox 93 06/29/23 08:00 O2 Del Method Room Air 06/29/23 08:00 Discharge Plan Discharge Patient Disposition: Home Condition: Stable Prescriptions: Continued nitroglycerin [Nitrostat] 0.4 mg tablet, sublingual 0.4 mg SUBLINGUAL Q5M PRN (Reason: Chest Pain) Qty: 25 2RF Rx Instructions: do not exceed 3 doses per episode clopidogrel 75 mg tablet 75 mg PO QPM Bevespi Aerosphere 9-4.8 mcg HFA aerosol inhaler 2 puff inhalation BID Qty: 10.7 3RF Creon 12,000-38,000 -60,000 unit Capsule,Delayed Release(Dr/Ec) See Rx Instructions .ROUTE .COMPLEX Rx Instructions: 5 cap po with meals and 2-3 caps with snacks. levothyroxine [Euthyrox] 150 mcg Tablet 150 mcg PO QAM Rx Instructions: Take on an empty stomach sertraline 50 mg Tablet 75 mg PO QPM pregabalin [Lyrica] 150 mg Capsule 150 mg PO QPM calcium acetate(phosphat bind) 667 mg capsule See Rx Instructions .ROUTE .COMPLEX Rx Instructions: Take 4 caps PO with meals and 2 caps with snacks. (Do not exceed 16 caps per day). cholecalciferol (vitamin D3) 1,250 mcg (50,000 unit) capsule 50,000 unit PO Q7D Rx Instructions: on wed famotidine 20 mg tablet 20 mg PO QPM metoprolol succinate 25 mg tablet extended release 24 hr 25 mg PO DAILY isosorbide mononitrate 120 mg tablet extended release 24 hr 120 mg PO DAILY Qty: 60 0RF oxycodone-acetaminophen 5-325 mg tablet 1 tab PO Q8H PRN (Reason: pain) Qty: 14 0RF clonidine HCl 0.1 mg tablet 0.1 mg PO Q8H PRN (Reason: hypertensive emergency) Qty: 30 0RF albuterol sulfate 90 mcg/actuation HFA aerosol inhaler 1 - 2 puff INHALATION Q4H PRN (Reason: Shortness Of Breath) ropinirole 0.5 mg tablet 0.5 mg PO BID PRN (Reason: Restless Leg(S)) zolpidem 10 mg tablet 10 mg PO BEDTIME RenaPlex-D 800 mcg-12.5 mg -2,000 unit tablet 1 tab PO QAM naloxone 4 mg/actuation spray,non-aerosol See Rx Instructions .ROUTE .COMPLEX Rx Instructions: ADMINISTER A SINGLE SPRAY IN ONE NOSTRIL UPON SIGNS OF OPIOID OVERDOSE. CALL 911. REPEAT AFTER 3 MINUTES IF NO RESPONSE. atorvastatin 40 mg tablet 40 mg PO QPM 30 Days Qty: 30 3RF insulin aspart U-100 [Novolog FlexPen U-100 Insulin] 100 unit/mL (3 mL) insulin pen See Rx Instructions .ROUTE .COMPLEX Qty: 15 0RF Rx Instructions: sliding scale tid amlodipine 5 mg tablet 5 mg PO QPM aspirin 81 mg tablet,delayed release (DR/EC) 81 mg PO QPM Basaglar KwikPen U-100 Insulin 100 unit/mL (3 mL) insulin pen See Rx Instructions .ROUTE .COMPLEX Rx Instructions: dosing depends on PD fluid potassium chloride 20 mEq Tablet Extended Release 20 meq PO DAILY Discharge Orders: Discharge Order (Routine); Ordered 06/29/23 Ordered By: Rony Duran Referrals: Lino Javier M.D [Physician] - 1 week Kiran Reardon MD [Primary Care Provider] - 07/07/23 10:10 am Discharge Diet: Cardiac Discharge Activity: Resume usual activity Patient Instructions: Opioid Safety Activity Restrictions/Additional Instructions: - If you have any chest pain or palpitations please go to the emergency room, ? Please limit fluid intake between 1 to 1.5 L a day, ? Please follow with cardiology in 1 week Discharge Attestations Time Spent in Discharge Care*: greater than 30 min Quality Metrics Clinical Quality Measures [ No reported AMI, CVA or VTE this stay] Coding Level of Care Code 62680 Total time (in minutes) for Discharge: 45 Diagnoses SOB (shortness of breath) R06.02 Pulmonary edema J81.1 Congestive heart failure I50.9 End-stage renal disease on peritoneal dialysis N18.6; Z99.2 S/P CABG (coronary artery bypass graft) Z95.1 Hypertension I10 Adult failure to thrive R62.7 NSTEMI (non-ST elevated myocardial infarction) I21.4
== END 2023-06-29 11:22 | disposition home or self-care (01) | DRG 280 ==
LOC: ER 22:45 → MEDSURG 23:28
PROVIDERS: Physician Assistant; Admitting Provider Student in an Organized Health Care Education/Training Program; Emergency Provider Emergency Medicine; PCP Family Medicine; Visit Provider Family Medicine
DX: I13.2 Hypertensive heart and chronic kidney disease with heart failure and with stage 5 chronic kidney disease, or end stage renal disease (principal); I50.23 Acute on chronic systolic (congestive) heart failure; I21.A1 Myocardial infarction type 2; N18.6 End stage renal disease; E87.1 Hypo-osmolality and hyponatremia; E11.22 Type 2 diabetes mellitus with diabetic chronic kidney disease; Z99.2 Dependence on renal dialysis; I25.10 Atherosclerotic heart disease of native coronary artery without angina pectoris; Z95.1 Presence of aortocoronary bypass graft; F32.A Depression, unspecified; E11.43 Type 2 diabetes mellitus with diabetic autonomic (poly)neuropathy; K31.84 Gastroparesis; M10.9 Gout, unspecified; E03.9 Hypothyroidism, unspecified; G20.C Parkinsonism, unspecified; Z87.891 Personal history of nicotine dependence; Z66 Do not resuscitate; R62.7 Adult failure to thrive; E83.39 Other disorders of phosphorus metabolism
CPT/HCPCS: 36415; 71045; 71275; 80053; 80061; 83036; 83605; 83735; 83880; 84100; 84145; 84439; 84443; 84484; 85025; 87040; 87486; 87581; 87633; 93005; 93010; 93306; 93971; 94640; 94664; 96365; 96372; 99285; J1644; J1815; J1940; J2543; Q3014; Q9967

== ENCOUNTER → 2023-07-13 09:37 | Outpatient (BNVA) | payer MEDICARE, OTHER, SELFPAY | PROVIDERS: PCP Family Medicine; Visit Provider Nurse Practitioner Family | DX: I13.2 Hypertensive heart and chronic kidney disease with heart failure and with stage 5 chronic kidney disease, or end stage renal disease (principal); N18.6 End stage renal disease; I50.42 Chronic combined systolic (congestive) and diastolic (congestive) heart failure; Z99.2 Dependence on renal dialysis; Z87.891 Personal history of nicotine dependence | CPT/HCPCS: 99213 ==

== ENCOUNTER 2023-08-08 05:49 | Inpatient (IN) | payer MEDICARE, OTHER, SELFPAY ==
[2023-08-08] VITALS (7 sets, daily range): BP systolic 142–168; BP diastolic 71–98; PULSE 71–78; RESP 16–22; TEMP 36.4–36.7; O2SAT 91–96; BMI 26.4
--- NOTE | 2023-08-08 05:52 | XRR_ITS ---
PROCEDURE INFORMATION: Exam: XR Chest Exam date and time: 08/08/2023 6:04 AM Age: 73 years old Clinical indication: Pain; Shortness of breath; Chest pressure; Prior surgery; Surgery date: 6+ months; Surgery type: Cabg. Brain stimulator; Patient HX: Cp with SOB; Additional info: Dyspnea TECHNIQUE: Imaging protocol: Radiologic exam of the chest. Views: 1 view. COMPARISON: CT angio chest PE protcl [id number] 06/26/2023 10:58 PM FINDINGS: Tubes, catheters and devices: A neurostimulator power pack overlies and obscures the lateral right chest with the wires projecting cranially into the neck. Lungs: There is opacity at the right lung base which may represent effusion and/or parenchymal disease. Increased interstitial markings in the lungs. Pleural spaces: Unremarkable. No pleural effusion. No pneumothorax. Heart/Mediastinum: Unremarkable. No cardiomegaly. Bones/joints: The patient is post sternotomy with surgical clips overlying the mediastinum. XR/XR chest 1V portable [id number] IMPRESSION: Findings compatible with CHF and/or pneumonia.
--- NOTE | 2023-08-08 05:53 | ECG_ITS ---
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 Measurements Intervals [place] Rate: 74 P: 15 MT: 151 QRS: -40 QRSD: 129 T: 94 QT: 440 QTc: 489 Interpretive Statements SINUS RHYTHM WITH SINUS ARRHYTHMIA LEFT AXIS DEVIATION [QRS AXIS < -30] LEFT VENTRICULAR HYPERTROPHY AND ST-T CHANGE [VOLTAGE CRITERIA PLUS ST/T ABNORMALITY] Compared to ECG 06/28/2023 06:33:54 Left-axis deviation now present ST (T wave) deviation now present Myocardial infarct finding no longer present Electronically Signed On 08-08-2023 10:18:12 BATH MIXER by Lino Javier M.D. [id number]
--- NOTE | 2023-08-08 05:59 | ED_ITS ---
HPI - Chest Pain 2 General: Chief Complaint: Chest Pain Stated Complaint: cp,sob Time Seen by Provider: 08/08/23 05:50 Source: patient Mode of arrival: wheelchair History of Present Illness: 73-year-old male presents to the emergen cy room with complaint of right-sided chest pain that began last night he had some PND with this as well. He did take his sago dose of aspirin chest pain got better and he was able to sleep, but when he woke up this morning it worsened again he took another nitroglycerin with no improvement. No recent fever sweats or chills denies abdominal pain. Patient has a known history of coronary disease had coronary bypass grafting January of this year. MD complaint: chest pain Pertinent past history: coronary artery disease Onset (ago): hour(s) Timing of current episode: episodic Onset: during rest Pain location: right chest Quality: aching and heaviness Relieving factors: nothing Exacerbating factors: nothing Associated symptoms: Reports dyspnea; Deny abdominal pain, diaphoresis, fever(s), leg edema, nausea, palpitations, sense of impending doom, syncope or vomiting Treatment prior to arrival: aspirin and nitroglycerin Review of Systems 2 Const: Denies: fever(s), chills or diaphoresis Card: Reports: chest pain; Denies: palpitations or syncope Resp: Reports: dyspnea GI: Denies: abdominal pain, nausea or vomiting : Denies: dysuria, urinary frequency or urinary urgency Musc: Denies: neck pain or back pain Skin/Breast: Denies: rash PFSH ED 2 PFSH: Medical History (Updated 08/09/23 @ 07:38 by Dago Woodard DO) Chest pain Restrictive lung disease Finger amputation, 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 SOB (shortness of breath) Coronary artery disease Lung entrapment Pneumonia Bilateral wheezing COPD exacerbation Hypercapnic respiratory failure Pleural effusion ESRD (end stage renal disease) Pulmonary nodule Gastroparesis Essential tremor Weakness Pancreatitis takes chronic pancrease Depression Hypothyroidism (acquired) Hyperlipidemia Gout Tremor Peritoneal dialysis catheter in place Vitiligo Acute hypokalemia Stage 5 chronic kidney disease Diabetes Hypertension Parkinsonian tremor Surgical History S/P CABG (coronary artery bypass graft) History of appendectomy History of cholecystectomy History of carpal tunnel release left wrist 1974 Family History Other CAD (coronary artery disease) Cancer Diabetes Hypertension Denies family history of Stroke Social History Smoking and tobacco/nicotine status: former use of tobacco/nicotine Quit status (tobacco/nicotine): has quit using Year quit tobacco: 1993 Former quit date comment: 2 ppd X 20 years Alcohol intake: never Substance/Drug Use: never Household members: spouse Marital status: Physical Exam 2 Const: COMMON NORMALS: no acute distress GENERAL APPEARANCE: cooperative and comfortable ORIENTATION/CONSCIOUSNESS: Yes awake, Yes oriented to person, Yes oriented to place and Yes oriented to time HENMT: COMMON NORMALS: normocephalic, atraumatic and hearing grossly normal bilaterally HEAD & SCALP: normocephalic and atraumatic Resp: COMMON NORMALS: normal respiratory effort, No retractions, No use of accessory muscles and clear to auscultation bilaterally AUSCULTATION: clear to auscultation bilaterally Cardio: COMMON NORMALS: regular rate, regular rhythm and No murmurs present (Cardio) RATE: regular rate RHYTHM: regular rhythm GI: COMMON NORMALS: Soft to palpation and No hepatosplenomegaly present A USCULTATION: Yes normoactive bowel sounds PALPATION: Yes Soft to palpation, No Tenderness to palpation present (GI), No Guarding due to palpation present (GI) and Yes No hepatosplenomegaly present Extremity: COMMON NORMALS: normal to inspection, capillary refill normal, no clubbing, cyanosis or edema, no calf tenderness and no pedal edema Neuro: SENSORIUM/ORIENTATION: Yes oriented to person, Yes oriented to place and Yes oriented to time Skin: COMMON NORMALS: no rashes or lesions noted GENERAL SKIN EXAM: no rashes or lesions noted Course 2 Vital Signs: Vital signs: Vital Signs Temperature 97.7 F 08/08/23 20:00 Pulse Rate 80 08/09/23 06:00 Respiratory Rate 17 08/09/23 04:00 Blood Pressure 166/100 08/09/23 04:00 Pulse Oximetry 86 L 08/09/23 04:00 Oxygen Delivery Me thod Room Air 08/09/23 00:00 MDM - Chest Pain Medical Decision Making Patient has had several episodes of chest discomfort while at rest since having his bypass earlier this year. Discussed with Dr. King. Will recommend observation to complete cardiac enzyme series and consider further evaluation including possible stress testing or angiogram as felt appropriate by cardiology. Discussed with hospitalist and patient orders written. Medical Records I reviewed the patient's medical records. Lab Data I reviewed the patient's lab results. 08/09/23 03:41 08/09/23 03:41 Radiology Impressions Chest X-Ray 08/08/23 05:52 IMPRESSION: Findings compatible with CHF and/or pneumonia. Laboratory Results WBC 10.11 10^3/uL (3.29-11.43) 08/08/23 05:59 RBC 3.61 10^6/uL (3.85-5.65) L 08/08/23 05:59 Hgb 10.40 g/dL (11.27-16.99) L 08/08/23 05:59 Hct 31.7 % (37-53) L 08/08/23 05:59 MCV 87.8 fl (82-101) 08/08/23 05:59 MCH 28.8 pg (27-33) 08/08/23 05:59 MCHC 32.8 g/dL (30-55) 08/08/23 05:59 RDW 15.1 % (12.1-15.1) 08/08/23 05:59 Plt Count 180 10^3/cmm (157-399) 08/08/23 05:59 MPV 10.0 fL (7.4-10.4) 08/08/23 05:59 Neut % (Auto) 63.7 % 08/08/23 05:59 Lymph % (Auto) 22.1 % 08/08/23 05:59 [place] % (Auto) 10.6 % 08/08/23 05:59 Eos % (Auto) 2.7 % 08/08/23 05:59 Baso % (Auto) 0.4 % 08/08/23 05:59 Neut # (Auto) 6.45 10^3/uL (1.8-7.7) 08/08/23 05:59 Lymph # (Auto) 2.2 10^3/uL (0.8-4.8) 08/08/23 05:59 [place] # (Auto) 1.1 10^3/uL (0.2-0.9) H 08/08/23 05:59 Eos # (Auto) 0.3 10^3/uL (0.0-0.8) 08/08/23 05:59 Baso # (Auto) 0.0 10^3/uL (0.0-0.1) 08/08/23 05:59 Nucleated RBC % (auto) 0 % 08/08/23 05:59 Nucleated RBCs # 0.0 /100WBC 08/08/23 05:59 Sodium 131 mmol/L (136-145) L 08/08/23 05:59 Potassium 4.7 mmol/L (3.5-5.1) 08/08/23 05:59 Chloride 92 mmol/L (98-107) L 08/08/23 05:59 Carbon Dioxide 22 mmol/L (22-29) 08/08/23 05:59 Anion Gap 21.7 (5-19) H 08/08/23 05:59 BUN 43 mg/dL (8-23) H 08/08/23 05:59 Creatinine 9.1 mg/dL (0.7-1.2) H* 08/08/23 05:59 GFR Calculation Not Reportable 08/08/23 05:59 Glucose 125 mg/dL (65-115) H 08/08/23 05:59 Calculated Osmolality 284 mOsm/kg (285-295) L 08/08/23 05:59 Calcium 8.5 mg/dL (8.5-10.5) 08/08/23 05:59 Magnesium 1.6 mg/dL (1.7-2.3) L 08/08/23 05:59 Total Bilirubin 0.3 mg/dL (0.15-1.2) 08/08/23 05:59 AST 21 U/L (0-40) 08/08/23 05:59 ALT 21 U/L (0-41) 08/08/23 05:59 Alkaline Phosphatase 159 U/L (40-130) H 08/08/23 05:59 Troponin T Baseline 323 ng/L (0-15) H* 08/08/23 05:59 Troponin T 120 Minute 319.8 ng/L (0-15) H 08/08/23 07:49 Delta Troponin T -3.2 ABS# (0-10) L 08/08/23 07:49 NT-Pro-B Natriuret Pep > 45841 pg/mL (0-125) H 08/08/23 07:49 Total Protein 6.2 g/dL (6.6-8.7) L 08/08/23 05:59 Albumin 2.8 g/dL (3.5-5.2) L 08/08/23 05:59 Globulin 3.4 g/dL (1.3-4.6) 08/08/23 05:59 Procalcitonin 0.75 ng/mL (0-0.5) H 08/08/23 07:49 Procalcitonin 0.80 ng/mL (0-0.5) H 08/08/23 07:49 All radiology interpretation(s) finalized by discharge Discharge Plan Discharge Patient Disposition: Admitted As Inpatient Admit Provider: Rony Duran Clinical Impression: Chest pain, Peritoneal dialysis catheter in place, ESRD (end stage renal disease), 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
[2023-08-08 06:06] LABS: Basophils % 0.4 %; Eosinophils # 0.3 10^3/uL (0.0-0.8); Eosinophils % 2.7 %; Hematocrit 31.7 % (37-53); Lymphocytes # 2.2 10^3/uL (0.8-4.8); Lymphocytes % 22.1 %; Mean Corpuscular HGB Conc 32.8 g/dL (30-55); Mean Corpuscular Hemoglobin 28.8 pg (27-33); Mean Corpuscular Volume 87.8 fl (82-101); Monocytes # 1.1 10^3/uL (0.2-0.9); Monocytes % 10.6 %; Neutrophils # 6.45 10^3/uL (1.8-7.7); Neutrophils % 63.7 %; Nucleated Red Blood Cells % 0 %; Platelet Count 180 10^3/cmm (157-399); Red Blood Count 3.61 10^6/uL (3.85-5.65); Red Cell Distribution Width 15.1 % (12.1-15.1); White Blood Count 10.11 10^3/uL (3.29-11.43)
[2023-08-08] MEDS: aspirin 81 mg Chew Tablet 324 MG PO (06:15)
[2023-08-08 06:22] LABS: Alanine Aminotransferase 21 U/L (0-41); Albumin Level 2.8 g/dL (3.5-5.2); Alkaline Phosphatase 159 U/L (40-130); Anion Gap 21.7 (5-19); Aspartate Amino Transferase 21 U/L (0-40); Blood Urea Nitrogen 43 mg/dL (8-23); Calcium 8.5 mg/dL (8.5-10.5); Carbon Dioxide 22 mmol/L (22-29); Chloride 92 mmol/L (98-107); Globulin 3.4 g/dL (1.3-4.6); Glucose 125 mg/dL (65-115); Magnesium 1.6 mg/dL (1.7-2.3); Osmolality Calculated 284 mOsm/kg (285-295); Potassium 4.7 mmol/L (3.5-5.1); Sodium 131 mmol/L (136-145); Total Bilirubin 0.3 mg/dL (0.15-1.2); Total Protein 6.2 g/dL (6.6-8.7)
[2023-08-08 06:27] LABS: Troponin(5th) Baseline 323 ng/L (0-15)
--- NOTE | 2023-08-08 07:53 | ECG_ITS ---
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 Measurements Intervals [place] Rate: 72 P: 102 [place]: 159 QRS: -44 QRSD: 133 T: 85 QT: 440 QTc: 484 Interpretive Statements SINUS RHYTHM LEFT AXIS DEVIATION [QRS AXIS < -30] INTRAVENTRICULAR CONDUCTION DELAY [130+ ms QRS DURATION] POSSIBLE LEFT VENTRICULAR HYPERTROPHY [VOLTAGE CRITERIA PLUS LAE OR QRS WIDENING] POSSIBLE SEPTAL MYOCARDIAL INFARCTION , PROBABLY OLD [30 ms Q WAVE IN V1/V2] Compared to ECG 08/08/2023 07:08:25 Intraventricular conduction delay now present Myocardial infarct finding now present Sinus arrhythmia no longer present ST (T wave) deviation no longer present Electronically Signed On 08-08-2023 10:21:30 LEAD 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 [id number]
[2023-08-08 08:32] LABS: Troponin 5 2HR 319.8 ng/L (0-15); Troponin 5 2HR Delta -3.2 ABS# (0-10)
[2023-08-08 08:41] LABS: Procalcitonin 0.75 ng/mL (0-0.5)
[2023-08-08 09:11] LABS: NT Pro B Type Natriuretic Pept > 70000 pg/mL (0-125)
--- NOTE | 2023-08-08 11:14 | USCV_ITS ---
Anshu Hurt Age: 73 Gender: M : 1950 Exam Date: 08/08/2023 12:07 Ordering Phys: Rony Duran MD Technologist: Jayme Chow Exam Location: [facility] Indication: chest pain BP: 148 / 98 HR: 64 Rhythm: Sinus Technical Quality: Adequate MEASUREMENTS (Male / Female) Normal Values 2D ECHO LVOT Diameter 2.0 cm LV Ejection Fraction MOD 2C 41.9 % LV Ejection Fraction 2C AL 40.5 % LA Diameter 4.6 cm LA Width 4.2 cm LA Height 5.6 cm RA Width 3.1 cm RA Height 4.6 cm Aorta at Sinotubular Diameter 2.1 cm IVC Diameter 2.0 cm M-MODE Aortic Annulus Diameter 3.4 cm LA Ao Ratio MM 1.4 MV E Point Septal Separation 1.5 cm DOPPLER AV Peak Velocity 245.5 cm/s LVOT Peak Velocity 65.0 cm/s AV Area Cont Eq vti 0.8 cm squared AV Area Cont Eq pk 0.8 cm squared MV Peak Velocity 138.0 cm/s MV Area PHT 4.9 cm squared Mitral E to A Ratio 0.8 MV E' Velocity 43.5 cm/s Mitral E to MV E' Ratio 13.4 Mitral E to LV E' Lateral Ratio 12.7 Mitral E to LV E' Septal Ratio 14.3 TR Peak Velocity 336.5 cm/s TR Peak Gradient 45.3 mmHg TR Mean Velocity 261.3 cm/s TR Mean Gradient 29.9 mmHg TR Velocity Time Integral 87.9 cm Right Atrial Pressure 3.0 mmHg Pulmonary Artery Systolic Pressu 48.3 mmHg PV Peak Velocity 121.0 cm/s RV Acceleration Time 0.1 s RV Ejection Time 0.3 s RV AcT/ET 0.5 FINDINGS Left Ventricle Left ventricle is normal in size. LV systolic function is moderately reduced with EF of 35-40 %. Moderate global hypokinesis. Grade 1 diastolic dysfunction Right Ventricle Normal in size and function Right Atrium Normal in size Left Atrium Dilated Mitral Valve Mitral valve is thickened. Mild mitral regurgitation. Aortic Valve Aortic valve is thickened. Moderate aortic stenosis with mean gradient across aortic valve of 15mmHg and aortic valve area of 1cm2. Tricuspid Valve Mild tricuspid regurgitation. RVSP is 45 to 50 mmHg. This is consistent with moderate pulmonary hypertension Pulmonic Valve Not well-visualized Pericardium Normal Aorta Normal in size IVC Not well visualized CONCLUSIONS LV systolic function is moderately reduced with EF of 35 to 40%. Grade 1 diastolic dysfunction. Left atrial dilation. Mild mitral regurgitation. Moderate aortic stenosis. Mild tricuspid regurgitation Moderate pulmonary hypertension Compared to prior echocardiogram from 06/2023 no significant changes are seen Lino Javier MD (Electronically Signed) Final Date: 08 August 2023 16:35 S
--- NOTE | 2023-08-08 11:53 | P.HP_ITS ---
Providers/Chief Complaint 2 Primary Care Provider: Irene Jones Chief Complaint: cp,sob History of Present Illness Anshu Hurt is a 73 year old male with a past medical history of CABG, CAD, end-stage renal disease on peritoneal dialysis, type 2 diabetes mellitus, patient declines hemodialysis, history of hypothyroidism, hypertension hyperlipidemia, who presents to [facility] for chest pain. Patient tells me he is roughly down 20 pounds over the last few months, this morning he woke up with severe substernal chest pain, left-sided radiating to his shoulder, improving with nitro, he tells me it did happen 1 time after but it resolved on its own, no recent fevers, chills, no cough, no abdominal pain, Review of Systems 2 Eyes: Denies: change in vision Card: Reports: chest pain Resp: Reports: dyspnea GI: Denies: abdominal pain : Denies: flank pain Neuro: Denies: headache(s) Medications/Allergies Home Medications Medication Instructions Recorded Confirmed Last Taken Type calcium acetate(phosphat bind) 667 See Rx Instructions .Route .COMPLEX 02/18/22 08/08/23 08/07/23 History mg capsule cholecalciferol (vitamin D3) 1,250 50,000 unit PO Q7D 02/18/22 08/08/23 08/04/23 History mcg (50,000 unit) capsule levothyroxine 150 mcg tablet 150 mcg PO QAM 02/18/22 08/08/23 08/07/23 History (Euthyrox) [id number] See Rx Instructions .Route .COMPLEX 02/18/22 08/08/23 08/07/23 History 12,000-38,000-60,000 unit capsule,delayed rel (Creon) pregabalin 150 mg capsule (Lyrica) 150 mg PO QPM 02/18/22 08/08/23 08/07/23 History sertraline 50 mg tablet 75 mg PO QPM 02/18/22 08/08/23 08/07/23 History nitroglycerin 0.4 mg sublingual 0.4 mg sublingual Q5M PRN Chest 04/15/22 08/08/23 Unknown Rx tablet (Nitrostat) Pain #25 tabs albuterol sulfate 90 mcg/actuation 1 - 2 puff inhalation Q4H PRN 12/28/22 08/08/23 Unknown History aerosol inhaler Shortness Of Breath ropinirole 0.5 mg tablet 0.5 mg PO BID PRN Restless Leg(S) 12/28/22 08/08/23 1 Day Ago History ~06/25/23 vit B,C-folic ac 800 mcg-zinc 12.5 1 tab PO QAM 12/28/22 08/08/23 08/07/23 History mg-selen-D3 2,000 unit-vit E tablet (RenaPlex-D) zolpidem 10 mg tablet 10 mg PO BEDTIME 12/28/22 08/08/23 08/07/23 History atorvastatin 40 mg tablet 40 mg PO QPM 30 days #30 tabs 12/29/22 08/08/23 08/07/23 Rx insulin aspart U-100 100 unit/mL See Rx Instructions .Route 12/29/22 08/08/23 08/07/23 Rx (3 mL) subcutaneous pen (Novolog .COMPLEX #15 mL FlexPen U-100 Insulin aspart) famotidine 20 mg tablet 20 mg PO QPM 01/30/23 08/08/23 08/07/23 History metoprolol succinate 25 mg 25 mg PO DAILY 01/30/23 08/08/23 08/07/23 History tablet,extended release 24 hr isosorbide mononitrate 120 mg 120 mg PO DAILY #60 tabs 02/01/23 08/08/23 08/07/23 Rx tablet,extended release 24 hr clopidogrel 75 mg tablet 75 mg PO QPM 02/12/23 08/08/23 08/07/23 History clonidine HCl 0.1 mg tablet 0.1 mg PO Q8H PRN hypertensive 06/21/23 08/08/23 Unknown Rx emergency #30 tabs amlodipine 5 mg tablet 5 mg PO QPM 06/26/23 08/08/23 08/07/23 History aspirin 81 mg tablet,delayed 81 mg PO QPM 06/26/23 08/08/23 08/07/23 History release insulin glargine 100 unit/mL (3 See Rx Instructions .Route .COMPLEX 06/26/23 08/08/23 08/07/23 History mL) subcutaneous pen (Basaglar KwikPen U-100 Insulin) potassium chloride 20 mEq 20 meq PO DAILY 11/08/08/23 08/07/23 History tablet,extended release hydroxyzine pamoate 25 mg capsule 25 mg PO BID 08/08/23 08/08/23 08/07/23 History losartan 25 mg tablet 25 mg PO DAILY 08/08/23 08/08/23 08/07/23 History Allergies Allergy/AdvReac Type Severity Reaction Status Date / Time carbidopa [From Sinemet] Allergy ADR-Halluci Verified 07/13/23 09:58 nating levodopa [From Sinemet] Allergy ADR-Halluci Verified 07/13/23 09:58 nating PFSH Acute 2 PFSH: Medical History (Updated 08/08/23 @ 11:56 by Rony Duran MD) Chest pain Restrictive lung disease Finger amputation, 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 SOB (shortness of breath) Coronary artery disease Lung entrapment Pneumonia Bilateral wheezing COPD exacerbation Hypercapnic respiratory failure Pleural effusion ESRD (end stage renal disease) Pulmonary nodule Gastroparesis Essential tremor Weakness Pancreatitis takes chronic pancrease Depression Hypothyroidism (acquired) Hyperlipidemia Gout Tremor Peritoneal dialysis catheter in place Vitiligo Acute hypokalemia Stage 5 chronic kidney disease Diabetes Hypertension Parkinsonian tremor Surgical History S/P CABG (coronary artery bypass graft) History of appendectomy History of cholecystectomy History of carpal tunnel release left wrist 1974 Family History Other CAD (coronary artery disease) Cancer Diabetes Hypertension Denies family history of Stroke Social History Smoking and tobacco/nicotine status: former use of tobacco/nicotine Quit status (tobacco/nicotine): has quit using Year quit tobacco: 1993 Former quit date comment: 2 ppd X 20 years Alcohol intake: never Substance/Drug Use: never Household members: spouse Marital status: Vitals/I&O/Wt Last Vital Signs Temp 98.1 F 08/08/23 06:00 Pulse 71 08/08/23 10:29 Resp 18 08/08/23 10:29 BP 145/98 08/08/23 10:29 Pulse Ox 91 08/08/23 10:29 O2 Del Method Room Air 08/08/23 07:52 Weight last 48 hrs Weight 86.183 kg Physical Exam 2 Const: COMMON NORMALS: no acute distress HENMT: COMMON NORMALS: normocephalic HEAD & SCALP: normocephalic Eye: COMMON NORMALS: Equal, round and reactive pupils present and EOMs intact bilaterally Neck/C-Spine: COMMON NORMALS: no JVD Lymph: LYMPHATIC: no lymphadenopathy noted Resp: COMMON NORMALS: normal respiratory effort, No retractions, No use of accessory muscles and clear to auscultation bilaterally AUSCULTATION: clear to auscultation bilaterally Cardio: COMMON NORMALS: regular rate, regular rhythm, S1 normal heart sound present and S2 normal heart sound present RATE: regular rate RHYTHM: r egular rhythm HEART SOUNDS: S1 normal heart sound present and S2 normal heart sound present GI: COMMON NORMALS: Normal to inspection, nondistended, normoactive bowel sounds present, Soft to palpation and non-tender Extremity: COMMON NORMALS: no calf tenderness and no pedal edema Neuro: COMMON NORMALS: patient oriented x3, CN's II-XII intact bilaterally and moves all extremities Psych: COMMON NORMALS: mental status grossly normal Data 08/08/23 05:59 08/08/23 05:59 A&P Assessment and plan (1) Hypertension: (2) Atherosclerotic heart disease of [place] coronary artery with unstable angina pectoris: (3) Coronary artery disease due to type 2 diabetes mellitus: (4) S/P CABG (coronary artery bypass graft): (5) ESRD (end stage renal disease): (6) End-stage renal disease on peritoneal dialysis: (7) Chest pain: (8) NSTEMI (non-ST elevated myocardial infarction): Plan Chest pain, NSTEMI, -Cardiac echo ?CONCLUSIONS ?Diffuse hypokinesia of the left ventricular ejection fraction of ?40%. Grade I/IV diastolic dysfunction (abnormal relaxation ?filling pattern), normal to mildly elevated filling pressures. ?Moderately increased left atrial size. ?Thickened mitral valve. Mild mitral annular calcification. Mild ?mitral valve regurgitation. ?Moderate aortic valve stenosis, mean gradient 14.8 mmHg, DANIELLA 1.1 ?cm squared.? Peak velocity 2.75 m/s. ?Mild to moderate eccentric tricuspid valve regurgitation. ?Estimated pulmonary artery peak systolic pressure 38 mmHg. ?There are no intracardiac masses. ?There is no pericardial effusion. ?Compared to the previous study from 12/28/2022, there is slight ?drop in the LV ejection fraction from 47% to 42% Cath in 2022 Conclusions 1. Severe multivessel CAD including ostial RCA, 2. left main and proximal to mid LAD (confirmed with ifr value of 0.71 for left main/LAD). Patent prior stent in left circumflex artery. Balloon angioplasty of ostial RCA performed however the balloon did not completely expand and patient still had significant dampening of pressures with catheter engagement. 3. . 4. Proximal Right Coronary Artery was treated with a Balloon. -Recent history of CABG ? Plan ? Serial EKGs, start to monitor telemetry monitoring, ? Continue aspirin, Plavix, beta-catie ? Heparin drip ?cardiology consulted ? Type 2 diabetes mellitus, low-dose sliding scale, ? Hypothyroidism continue levothyroxine, ? End-stage renal disease, on peritoneal dialysis, patient does look fluid overloaded consult nephrology for dialysis, patient declines hemodialysis, - DNR/DNI, ? Heparin drip for DVT prophylaxis Attestations 2 Medical Necessity Statement*: Patient requires hospitalization, inpatient, greater than 2 minutes, for chest pain, NSTEMI Diagnoses Essential hypertension I10 Atherosclerotic heart disease of [place] coronary artery with unstable angina pectoris I25.110 Coronary artery disease due to type 2 diabetes mellitus E11.59; I25.10 S/P CABG (coronary artery bypass graft) Z95.1 ESRD (end stage renal disease) N18.6 End-stage renal disease on peritoneal dialysis N18.6; Z99.2 Chest pain R07.9 NSTEMI (non-ST elevated myocardial infarction) I21.4
[2023-08-08 12:11] LABS: Lactic Sepsis W/Reflex 0.7 mmol/L (0.5-2.2)
[2023-08-08 12:14] LABS: Troponin 5 6HR 311.8 ng/L (0-15); Troponin 5 6HR Delta -11.2 ng/L (0-12)
--- NOTE | 2023-08-08 12:26 | ECG_ITS ---
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 Measurements Intervals [address] Rate: 68 P: 75 IL: 196 QRS: -48 QRSD: 129 T: 99 QT: 467 QTc: 500 Interpretive Statements SINUS RHYTHM LEFT ANTERIOR FASCICULAR BLOCK [QRS AXIS <= -45, QR IN I, RS IN II] SEPTAL MYOCARDIAL INFARCTION , OF INDETERMINATE AGE [40+ ms Q WAVE IN V1/V2] Compared to ECG 08/08/2023 09:10:33 Left anterior fascicular block now present Left-axis deviation no longer present Intraventricular conduction delay no longer present Myocardial infarct finding still present Electronically Signed On 08-08-2023 14:23:33 INFORMATION TECHNOLOGY DATA ANALYST by Lino Javier M.D. [id number]
--- NOTE | 2023-08-08 15:40 | P.CONIM_ITS ---
Providers/Reason For Consult 2 Consulting Physician/Specialty*: Lino Javier MD/ Cardiology Reason for Consult*: Chest pain Requesting Physician: Dr Woodard Attending Physician: Rony Duran MD Primary Care Provider: Irene Jones History of Present Illness History of Present Illness Anshu Hurt is a 73 year old male with past medical history of hypertension, CAD post CABG, diabetes who has presented to hospital with chest pain episodes. 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 Improved with nitros. Had another episode later. He was found to have elevated troponins however have not trended up significantly. Patient is on peritoneal dialysis. EKG shows sinus rhythm with LVH. Review of Systems 2 Eyes: Denies: change in vision Card: Reports: chest pain Resp: Reports: dyspnea GI: Denies: abdominal pain : Denies: flank pain Neuro: Denies: headache(s) Medications/Allergies Home Medications Medication Instructions Recorded Confirmed Last Taken Type calcium acetate(phosphat bind) 667 See Rx Instructions .Route .COMPLEX 02/18/22 08/08/23 08/07/23 History mg capsule cholecalciferol (vitamin D3) 1,250 50,000 unit PO Q7D 02/18/22 08/08/23 08/04/23 History mcg (50,000 unit) capsule levothyroxine 150 mcg tablet 150 mcg PO QAM 02/18/22 08/08/23 08/07/23 History (Euthyrox) [id number] See Rx Instructions .Route .COMPLEX 02/18/22 08/08/23 08/07/23 History 12,000-38,000-60,000 unit capsule,delayed rel (Creon) pregabalin 150 mg capsule (Lyrica) 150 mg PO QPM 02/18/22 08/08/23 08/07/23 History sertraline 50 mg tablet 75 mg PO QPM 02/18/22 08/08/23 08/07/23 History nitroglycerin 0.4 mg sublingual 0.4 mg sublingual Q5M PRN Chest 04/15/22 08/08/23 Unknown Rx tablet (Nitrostat) Pain #25 tabs albuterol sulfate 90 mcg/actuation 1 - 2 puff inhalation Q4H PRN 12/28/22 08/08/23 Unknown History aerosol inhaler Shortness Of Breath ropinirole 0.5 mg tablet 0.5 mg PO BID PRN Restless Leg(S) 12/28/22 08/08/23 1 Day Ago History ~06/25/23 vit B,C-folic ac 800 mcg-zinc 12.5 1 tab PO QAM 12/28/22 08/08/23 08/07/23 History mg-selen-D3 2,000 unit-vit E tablet (RenaPlex-D) zolpidem 10 mg tablet 10 mg PO BEDTIME 12/28/22 08/08/23 08/07/23 History atorvastatin 40 mg tablet 40 mg PO QPM 30 days #30 tabs 12/29/22 08/08/23 08/07/23 Rx insulin aspart U-100 100 unit/mL See Rx Instructions .Route 12/29/22 08/08/23 08/07/23 Rx (3 mL) subcutaneous pen (Novolog .COMPLEX #15 mL FlexPen U-100 Insulin aspart) famotidine 20 mg tablet 20 mg PO QPM 01/30/23 08/08/23 08/07/23 History metoprolol succinate 25 mg 25 mg PO DAILY 01/30/23 08/08/23 08/07/23 History tablet,extended release 24 hr isosorbide mononitrate 120 mg 120 mg PO DAILY #60 tabs 02/01/23 08/08/23 08/07/23 Rx tablet,extended release 24 hr clopidogrel 75 mg tablet 75 mg PO QPM 02/12/23 08/08/23 08/07/23 History clonidine HCl 0.1 mg tablet 0.1 mg PO Q8H PRN hypertensive 06/21/23 08/08/23 Unknown Rx emergency #30 tabs amlodipine 5 mg tablet 5 mg PO QPM 06/26/23 08/08/23 08/07/23 History aspirin 81 mg tablet,delayed 81 mg PO QPM 06/26/23 08/08/23 08/07/23 History release insulin glargine 100 unit/mL (3 See Rx Instructions .Route .COMPLEX 06/26/23 08/08/23 08/07/23 History mL) subcutaneous pen (Basaglar KwikPen U-100 Insulin) potassium chloride 20 mEq 20 meq PO DAILY 06/26/23 08/08/23 08/07/23 History tablet,extended release hydroxyzine pamoate 25 mg capsule 25 mg PO BID 08/08/23 08/08/23 08/07/23 History losartan 25 mg tablet 25 mg PO DAILY 08/08/23 08/08/23 08/07/23 History Allergies Allergy/AdvReac Type Severity Reaction Status Date / Time carbidopa [From Sinemet] Allergy ADR-Halluci Verified 07/13/23 09:58 nating levodopa [From Sinemet] Allergy ADR-Halluci Verified 07/13/23 09:58 nating PFSH Acute 2 PFSH: Medical History Chest pain Restrictive lung disease Finger amputation, 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 SOB (shortness of breath) Coronary artery disease Lung entrapment Pneumonia Bilateral wheezing COPD exacerbation Hypercapnic respiratory failure Pleural effusion ESRD (end stage renal disease) Pulmonary nodule Gastroparesis Essential tremor Weakness Pancreatitis takes chronic pancrease Depression Hypothyroidism (acquired) Hyperlipidemia Gout Tremor Peritoneal dialysis catheter in place Vitiligo Acute hypokalemia Stage 5 chronic kidney disease Diabetes Hypertension Parkinsonian tremor Surgical History S/P CABG (coronary artery bypass graft) History of appendectomy History of cholecystectomy History of carpal tunnel release left wrist 1974 Family History Other CAD (coronary artery disease) Cancer Diabetes Hypertension Denies family history of Stroke Social History Smoking and tobacco/nicotine status: former use of tobacco/nicotine Quit status (tobacco/nicotine): has quit using Year quit tobacco: 1993 Former quit date comment: 2 ppd X 20 years Alcohol intake: never Substance/Drug Use: never Household members: spouse Marital status: Vitals/I&O/Wt Last Vital Signs Temp 98.1 F 08/08/23 06:00 Pulse 73 08/08/23 15:11 Resp 18 08/08/23 15:11 BP 142/88 08/08/23 15:11 Pulse Ox 93 08/08/23 15:11 O2 Del Method Room Air 08/08/23 15:11 Weight last 48 hrs Weight 190 lb Physical Exam 2 Narrative: GENERAL: Patient is alert, awake and oriented x3. [] NECK: No jugular vein distension. [] HEENT: No cyanosis. No icterus. No pallor. [] HEART: Regular S1 and S2. No murmur, rub or gallop. [] LUNGS: Clear to auscultate bilaterally. [] CENTRAL NERVOUS SYSTEM: Grossly nonfocal. [] EXTREMITIES: Lower extremities with 1+ edema bilaterally. Data 08/09/23 03:41 08/09/23 03:41 A&P Assessment and plan (1) Chest pain: (2) Hyperlipidemia: Qualifiers: Hyperlipidemia type: unspecified Qualified Code(s): E78.5 - Hyperlipidemia, unspecified (3) Hypertension: (4) Atherosclerotic heart disease of [place] coronary artery with unstable angina pectoris: (5) End-stage renal disease on peritoneal dialysis: (6) Elevated troponin: Plan Patient had significant chest pain episodes today. Currently chest pain-free. Troponins are elevated however they are chronically elevated. We will proceed with stress test on Wednesday for further evaluation. Continue anticoagulation and dual antiplatelet therapy. Echocardiogram ordered. Thank you for involving us with care of this patient. We will continue to follow. Please call with questions. Consult Attestations 2 Medical Necessity Statement: Care expected to cross 2 midnights. Coding Level of Care Code Acute Code for [facility] Diagnoses Chest pain R07.9 Hyperlipidemia, unspecified hyperlipidemia type E78.5 Hyperlipidemia type: unspecified Essential hypertension I10 Atherosclerotic heart disease of [place] coronary artery with unstable angina pectoris I25.110 End-stage renal disease on peritoneal dialysis N18.6; Z99.2 Elevated troponin R77.8
[2023-08-08] MEDS: heparin drip 25,000 UNIT/500 ML PREMIX 41.37 UNIT IV (16:46)
[2023-08-08 17:09] LABS: Platelet Count 158 10^3/cmm (157-399)
[2023-08-08] MEDS: sertraline 50 mg Tablet 75 MG PO (17:35)
[2023-08-08] MEDS: ropinirole 1 mg Tablet 0.5 MG PO (17:36)
[2023-08-08] MEDS: famotidine 20 mg Tablet PO (17:36)
[2023-08-08 17:37] LABS: Thyroid Stimulating Hormone 8.22 uIU/mL (0.27-4.20)
[2023-08-08] MEDS: atorvastatin 40 mg Tablet PO (17:37)
[2023-08-08] MEDS: amlodipine 5 mg Tablet PO (17:37)
[2023-08-08] MEDS: clopidogrel 75 mg Tablet PO (17:37)
[2023-08-08] MEDS: hyDROXYzine 25 mg Capsule PO (17:37)
[2023-08-08] MEDS: pregabalin 150 mg Capsule PO (17:37)
[2023-08-08] MEDS: lipase-protease-amylase Capsule 5 EACH PO (17:38)
[2023-08-08] MEDS: calcium acetate 667 mg Capsule 2668 MG PO (17:38)
--- NOTE | 2023-08-08 22:03 | PM.CONSULT ---
Providers/Reason For Consult Consulting Physician/Specialty*: kommana/Nephrology Reason for Consult*: ESRD-PD Attending Physician: Rony Duran MD Primary Care Provider: Irene Jones History of Present Illness History of Present Illness Anshu Hurt is a73 year old male with a past medical history of CABG, CAD, end-stage renal disease on peritoneal dialysis, type 2 diabetes mellitus, , history of hypothyroidism, hypertension hyperlipidemia, who presents to [facility] for chest pain. labs reviewed Medications/Allergies Home Medications Medication Instructions Recorded Confirmed Last Taken Type calcium acetate(phosphat bind) 667 See Rx Instructions .Route .COMPLEX 02/18/22 08/08/23 08/07/23 History mg capsule cholecalciferol (vitamin D3) 1,250 50,000 unit PO Q7D 02/18/22 08/08/23 08/04/23 History mcg (50,000 unit) capsule levothyroxine 150 mcg tablet 150 mcg PO QAM 02/18/22 08/08/23 08/07/23 History (Euthyrox) onouqp-elrzqqsu-udcgcir See Rx Instructions .Route .COMPLEX 02/18/22 08/08/23 08/07/23 History 12,000-38,000-60,000 unit capsule,delayed rel (Creon) pregabalin 150 mg capsule (Lyrica) 150 mg PO QPM 02/18/22 08/08/23 08/07/23 History sertraline 50 mg tablet 75 mg PO QPM 02/18/22 08/08/23 08/07/23 History nitroglycerin 0.4 mg sublingual 0.4 mg sublingual Q5M PRN Chest 04/15/22 08/08/23 Unknown Rx tablet (Nitrostat) Pain #25 tabs albuterol sulfate 90 mcg/actuation 1 - 2 puff inhalation Q4H PRN 12/28/22 08/08/23 Unknown History aerosol inhaler Shortness Of Breath ropinirole 0.5 mg tablet 0.5 mg PO BID PRN Restless Leg(S) 12/28/22 08/08/23 1 Day Ago History ~06/25/23 vit B,C-folic ac 800 mcg-zinc 12.5 1 tab PO QAM 12/28/22 08/08/23 08/07/23 History mg-selen-D3 2,000 unit-vit E tablet (RenaPlex-D) zolpidem 10 mg tablet 10 mg PO BEDTIME 12/28/22 08/08/23 08/07/23 History atorvastatin 40 mg tablet 40 mg PO QPM 30 days #30 tabs 12/29/22 08/08/23 08/07/23 Rx insulin aspart U-100 100 unit/mL See Rx Instructions .Route 12/29/22 08/08/23 08/07/23 Rx (3 mL) subcutaneous pen (Novolog .COMPLEX #15 mL FlexPen U-100 Insulin aspart) famotidine 20 mg tablet 20 mg PO QPM 01/30/23 08/08/23 08/07/23 History metoprolol succinate 25 mg 25 mg PO DAILY 01/30/23 08/08/23 08/07/23 History tablet,extended release 24 hr isosorbide mononitrate 120 mg 120 mg PO DAILY #60 tabs 02/01/23 08/08/23 08/07/23 Rx tablet,extended release 24 hr clopidogrel 75 mg tablet 75 mg PO QPM 02/12/23 08/08/23 08/07/23 History clonidine HCl 0.1 mg tablet 0.1 mg PO Q8H PRN hypertensive 06/21/23 08/08/23 Unknown Rx emergency #30 tabs amlodipine 5 mg tablet 5 mg PO QPM 06/26/23 08/08/23 08/07/23 History aspirin 81 mg tablet,delayed 81 mg PO QPM 06/26/23 08/08/23 08/07/23 History release insulin glargine 100 unit/mL (3 See Rx Instructions .Route .COMPLEX 06/26/23 08/08/23 08/07/23 History mL) subcutaneous pen (Basaglar KwikPen U-100 Insulin) potassium chloride 20 mEq 20 meq PO DAILY 06/26/23 08/08/23 08/07/23 History tablet,extended release hydroxyzine pamoate 25 mg capsule 25 mg PO BID 08/08/23 08/08/23 08/07/23 History losartan 25 mg tablet 25 mg PO DAILY 08/08/23 08/08/23 08/07/23 History Allergies Allergy/AdvReac Type Severity Reaction Status Date / Time carbidopa [From Sinemet] Allergy ADR-Halluci Verified 07/13/23 09:58 amol levodopa [From Sinemet] Allergy ADR-Halluci Verified 07/13/23 09:58 nating Current Medications Generic Name Dose Route Start Last Admin Trade Name Lavinia PRGerson Reason Stop Dose Admin Amlodipine Besylate 5 mg 08/08/23 18:00 08/08/23 17:37 Amlodipine 5 Mg Tablet PO 5 mg QPM SHAMAR Administration Lipase/Protease/Amylase 5 each 08/08/23 18:00 08/08/23 17:38 Dkbwmy-Bdabtxgu-Irszkfu Capsule PO 5 each TIDWM SHAMAR Administration Atorvastatin Calcium 40 mg 08/08/23 18:00 08/08/23 17:37 Atorvastatin 40 Mg Tablet PO 40 mg QPM SHAMAR Administration Calcium Acetate 2,668 mg 08/08/23 18:00 08/08/23 17:38 Calcium Acetate 667 Mg Capsule PO 2,668 mg TIDWM SHAMAR Administration Clopidogrel Bisulfate 75 mg 08/08/23 18:00 08/08/23 17:37 Clopidogrel 75 Mg Tablet PO 75 mg QPM SHAMAR Administration Ergocalciferol 50,000 unit 08/08/23 17:15 08/08/23 20:32 Ergocalciferol (Vitamin D2) 50,000 Unit Capsule PO Not Given Q7D SHAMAR Famotidine 20 mg 08/08/23 18:00 08/08/23 17:36 Famotidine 20 Mg Tablet PO 20 mg QPM SHAMAR Administration Hydroxyzine Pamoate 25 mg 08/08/23 18:00 08/08/23 17:37 Hydroxyzine 25 Mg Capsule PO 25 mg BID SHAMAR Administration Heparin Sodium/Sodium Chloride 25,000 unit in 500 mls @ 0 mls/hr 08/08/23 15:22 08/08/23 16:46 Heparin Drip IV 24 unit/kg/hr .Q0M SHAMAR 41.37 mls/hr Administration Protocol Per Protocol Insulin Human Lispro 0 unit 08/08/23 15:22 08/08/23 17:39 Insulin Lispro 100 Unit/1 Ml SUBCUT Not Given TIDWM SHAMAR Protocol Pregabalin 150 mg 08/08/23 18:00 08/08/23 17:37 Pregabalin 150 Mg Capsule PO 150 mg QPM SHAMAR Administration Ropinirole HCl 0.5 mg 08/08/23 16:38 08/08/23 17:36 Ropinirole 1 Mg Tablet PO 0.5 mg BID PRN Administration Restless Leg(S) Sertraline HCl 75 mg 08/08/23 18:00 08/08/23 17:35 Sertraline 50 Mg Tablet PO 75 mg QPM SHAMAR Administration PFSH Acute PFSH: Medical History (Updated 08/08/23 @ 11:56 by Rony Duran MD) Chest pain Restrictive lung disease Finger amputation, 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 SOB (shortness of breath) Coronary artery disease Lung entrapment Pneumonia Bilateral wheezing COPD exacerbation Hypercapnic respiratory failure Pleural effusion ESRD (end stage renal disease) Pulmonary nodule Gastroparesis Essential tremor Weakness Pancreatitis takes chronic pancrease Depression Hypothyroidism (acquired) Hyperlipidemia Gout Tremor Peritoneal dialysis catheter in place Vitiligo Acute hypokalemia Stage 5 chronic kidney disease Diabetes Hypertension Parkinsonian tremor Surgical History S/P CABG (coronary artery bypass graft) History of appendectomy History of cholecystectomy History of carpal tunnel release left wrist 1974 Family History Other CAD (coronary artery disease) Cancer Diabetes Hypertension Denies family history of Stroke Social History Smoking and tobacco/nicotine status: former use of tobacco/nicotine Quit status (tobacco/nicotine): has quit using Year quit tobacco: 1993 Former quit date comment: 2 ppd X 20 years Alcohol intake: never Substance/Drug Use: never Household members: spouse Marital status: Vitals/I&O/Wt Last Vital Signs Temp 97.7 F 08/08/23 20:00 Pulse 73 08/08/23 20:00 Resp 16 08/08/23 20:00 BP 147/85 08/08/23 20:00 Pulse Ox 96 08/08/23 20:00 O2 Del Method Room Air 08/08/23 20:00 08/08/23 08/08/23 08/08/23 06:59 14:59 22:59 Intake Total 240 / 240 Balance 240 / 240 Weight last 48 hrs Weight 86.183 kg Weight 86.183 kg Physical Exam Narrative: deferred Data 08/08/23 16:46 08/08/23 05:59 A&P Assessment and plan (1) ESRD (end stage renal disease): 1. ESRD -on PD , will resume PD 2. Chest pain , h/o multivessel coronary disease 3. HTN , resume home meds 4. DM-2 5.Chronic Anemia Consult Attestations Medical Necessity Statement: per medicine Coding Level of Care Code Acute Code for Chg Fwd Diagnoses ESRD (end stage renal disease) N18.6
[2023-08-08] MEDS: zolpidem 5 mg Tablet 10 MG PO (22:32)
[2023-08-09] VITALS (14 sets, daily range): BP systolic 121–175; BP diastolic 68–100; PULSE 67–80; RESP 14–34; TEMP 36.4–36.8; O2SAT 86–100
[2023-08-09 03:57] LABS: Basophils % 0.4 %; Eosinophils # 0.2 10^3/uL (0.0-0.8); Eosinophils % 2.9 %; Hematocrit 26.3 % (37-53); Lymphocytes # 1.2 10^3/uL (0.8-4.8); Lymphocytes % 16.7 %; Mean Corpuscular HGB Conc 32.7 g/dL (30-55); Mean Corpuscular Hemoglobin 28.5 pg (27-33); Mean Corpuscular Volume 87.1 fl (82-101); Mean Platelet Volume 10.3 fL (7.4-10.4); Monocytes # 0.7 10^3/uL (0.2-0.9); Monocytes % 9.8 %; Neutrophils # 5.06 10^3/uL (1.8-7.7); Neutrophils % 69.6 %; Nucleated Red Blood Cells % 0 %; Platelet Count 154 10^3/cmm (157-399); Red Blood Count 3.02 10^6/uL (3.85-5.65); Red Cell Distribution Width 14.9 % (12.1-15.1); White Blood Count 7.26 10^3/uL (3.29-11.43)
[2023-08-09 04:51] LABS: Alanine Aminotransferase 15 U/L (0-41); Albumin Level 2.4 g/dL (3.5-5.2); Alkaline Phosphatase 133 U/L (40-130); Anion Gap 20.1 (5-19); Aspartate Amino Transferase 17 U/L (0-40); Blood Urea Nitrogen 42 mg/dL (8-23); Carbon Dioxide 23 mmol/L (22-29); Chloride 94 mmol/L (98-107); Globulin 2.8 g/dL (1.3-4.6); Glucose 148 mg/dL (65-115); Magnesium 1.5 mg/dL (1.7-2.3); Osmolality Calculated 289 mOsm/kg (285-295); Phosphorus 7.1 mg/dL (2.5-4.5); Potassium 4.1 mmol/L (3.5-5.1); Sodium 133 mmol/L (136-145); Total Bilirubin 0.3 mg/dL (0.15-1.2); Total Protein 5.2 g/dL (6.6-8.7)
[2023-08-09 07:05] LABS: NT Pro B Type Natriuretic Pept > 70000 pg/mL (0-125)
[2023-08-09 07:33] LABS: Partial Thromboplastin Time 37.1 SECONDS (23.9-36.7)
[2023-08-09 07:34] LABS: Glucose Point of Care 77 mg/dL (70-110)
[2023-08-09] MEDS: lipase-protease-amylase Capsule 5 EACH PO ×3 (08:52→17:19)
[2023-08-09] MEDS: hyDROXYzine 25 mg Capsule PO (08:53)
[2023-08-09] MEDS: magnesium lactate 84 mg Tablet PO ×2 (08:53→17:20)
[2023-08-09] MEDS: metoprolol succinate ER (24 HR) 25 mg Tablet PO (08:53)
[2023-08-09] MEDS: losartan 50 mg Tablet 25 MG PO (08:53)
[2023-08-09] MEDS: aspirin 81 mg EC Tablet PO (08:54)
[2023-08-09] MEDS: potassium chloride ER 20 mEq Tablet PO (08:54)
[2023-08-09] MEDS: levothyroxine 150 mcg Tablet PO (08:54)
[2023-08-09] MEDS: isosorbide mononitrate ER 60 mg Tablet 120 MG PO (08:54)
[2023-08-09] MEDS: calcium acetate 667 mg Capsule 2668 MG PO ×3 (08:54→17:20)
[2023-08-09] MEDS: b-complex-vitamin c Tablet 1 EACH PO (08:54)
[2023-08-09] MEDS: heparin 5,000 unit/mL INJ 1 mL IV (08:55)
--- NOTE | 2023-08-09 11:12 | PM.PN ---
Subjective Subjective: Patient did not have further chest pain episodes. On heparin drip. Vitals/I&O/Wt Last Vital Signs Temp 98.2 F 08/09/23 08:00 Pulse 75 08/09/23 09:28 Resp 16 08/09/23 09:28 BP 165/96 08/09/23 08:53 Pulse Ox 94 08/09/23 09:29 O2 Del Method Room Air 08/09/23 09:29 08/08/23 08/09/23 08/09/23 22:59 06:59 14:59 Intake Total 240 / 240 341.303 / 581.303 151.05 / 151.05 Output Total 0 / 0 Balance 240 / 240 341.303 / 581.303 151.05 / 151.05 Weight last 48 hrs Weight 187 lb Weight 190 lb Weight 190 lb Physical Exam Narrative: GENERAL: Patient is alert, awake and oriented x3. [] NECK: No jugular vein distension. [] HEENT: No cyanosis. No icterus. No pallor. [] HEART: Regular S1 and S2. No murmur, rub or gallop. [] LUNGS: Clear to auscultate bilaterally. [] CENTRAL NERVOUS SYSTEM: Grossly nonfocal. [] EXTREMITIES: Lower extremities with 1+ edema bilaterally. Data 08/10/23 04:05 08/10/23 04:05 A&P Assessment and plan (1) Chest pain: (2) Hyperlipidemia: Qualifiers: Hyperlipidemia type: unspecified Qualified Code(s): E78.5 - Hyperlipidemia, unspecified (3) Hypertension: (4) Atherosclerotic heart disease of [place] coronary artery with unstable angina pectoris: (5) End-stage renal disease on peritoneal dialysis: (6) Elevated troponin: Plan Patient is chest pain-free at this time. Echo showed no significant change in LV systolic function. Continue heparin drip. Plan for stress test tomorrow. If there is significant ischemia, then we will proceed with coronary angiogram. Thank you for involving us with care of this patient. We will continue to follow. Please call with questions. Attestations Medical Necessity Statement*: Care expected to cross 2 midnights. Coding Level of Care Code Acute Code for [facility] Diagnoses Chest pain R07.9 Hyperlipidemia, unspecified hyperlipidemia type E78.5 Hyperlipidemia type: unspecified Essential hypertension I10 Atherosclerotic heart disease of [place] coronary artery with unstable angina pectoris I25.110 End-stage renal disease on peritoneal dialysis N18.6; Z99.2 Elevated troponin R77.8
--- NOTE | 2023-08-09 11:50 | ECG_ITS ---
[facility] Test Date: 2023-08-10 Pat Name: Anshu Hurt Department: Room: 103 Gender: Male Software Analyst: : 1950 Requested By: Rony Duran Order Number: [id number] Murtaza MD: Lino Javier M.D. Interpretive Statements NAME OF STUDY: LEXISCAN SESTAMIBI STRESS TEST INDICATION: [Chest Pain, ] Procedure: At the baseline, the blood pressure was 156/87 mmHg with a heart rate of 72 bpm. The electrocardiogram showed normal sinus rhythm, left axis deviation with normal ST and T's. The Lexiscan was infused over a period of 20 seconds. A total of 0.4 mg of Lexiscan was infused. The stress phase was continued for a total of 5 minutes. Heart rate was at the end of stress phase was 79 bpm and a blood pressure of 147/68 mmHg. The EKG at the peak infusion revealed normal sinus rhythm with no significant ST-T wave changes. PVCs were seen. Sestamibi was injected 20 seconds after the Lexiscan infusion. Blood pressure at the end of recovery phase was 143/73 mmHg with a heart rate of 79 bpm. Conclusion: 1. Normal EKG response to Lexiscan infusion 2. No Lexiscan induced chest pain or cardiac arrhythmia. 3. Normal blood pressure and heart rate response. 4. Sestamibi/sestamibi perfusion scan pending; see separate report. Electronically Signed On 08-29-2023 20:10:42 SPECIAL SHOPPER by Lino Javier M.D. [email or web address]
--- NOTE | 2023-08-09 11:56 | PC.NURSE ---
Patient has a dexcom, his blood sugar was 121 at 1158.
[2023-08-09] MEDS: heparin drip 25,000 UNIT/500 ML PREMIX 22 UNIT IV (12:28)
--- NOTE | 2023-08-09 13:04 | P.PN_ITS ---
Subjective 2 Subjective: Patient was seen this morning, he denies any chest pain overnight, no nausea, vomiting, abdominal pain Vitals/I&O/Wt Last Vital Signs Temp 98.2 F 08/09/23 08:00 Pulse 75 08/09/23 09:28 Resp 16 08/09/23 09:28 BP 165/96 08/09/23 08:53 Pulse Ox 94 08/09/23 09:29 O2 Del Method Room Air 08/09/23 09:29 08/08/23 08/09/23 08/09/23 22:59 06:59 14:59 Intake Total 240 / 240 341.303 / 581.303 378.697 / 378.697 Output Total 0 / 0 Balance 240 / 240 341.303 / 581.303 378.697 / 378.697 Weight last 48 hrs Weight 84.822 kg Weight 86.183 kg Weight 86.183 kg Physical Exam 2 Const: COMMON NORMALS: no acute distress and patient oriented x3 Resp: COMMON NORMALS: normal respiratory effort, No retractions, No use of accessory muscles and clear to auscultation bilaterally AUSCULTATION: clear to auscultation bilaterally Cardio: COMMON NORMALS: regular rate, regular rhythm, S1 normal heart sound present and S2 normal heart sound present RATE: regular rate RHYTHM: r egular rhythm HEART SOUNDS: S1 normal heart sound present and S2 normal heart sound present GI: COMMON NORMALS: Normal to inspection, nondistended, normoactive bowel sounds present and non-tender Extremity: COMMON NORMALS: no pedal edema Neuro: COMMON NORMALS: patient oriented x3 Psych: COMMON NORMALS: mental status grossly normal Data 08/09/23 03:41 08/09/23 03:41 A&P Assessment and plan (1) Hypertension: (2) Atherosclerotic heart disease of [place] coronary artery with unstable angina pectoris: (3) Coronary artery disease due to type 2 diabetes mellitus: (4) S/P CABG (coronary artery bypass graft): (5) ESRD (end stage renal disease): (6) End-stage renal disease on peritoneal dialysis: (7) Chest pain: (8) NSTEMI (non-ST elevated myocardial infarction): Plan Chest pain, NSTEMI, -Cardiac echo ?CONCLUSIONS ?Diffuse hypokinesia of the left ventricular ejection fraction of ?40%. Grade I/IV diastolic dysfunction (abnormal relaxation ?filling pattern), normal to mildly elevated filling pressures. ?Moderately increased left atrial size. ?Thickened mitral valve. Mild mitral annular calcification. Mild ?mitral valve regurgitation. ?Moderate aortic valve stenosis, mean gradient 14.8 mmHg, DANIELLA 1.1 ?cm squared.? Peak velocity 2.75 m/s. ?Mild to moderate eccentric tricuspid valve regurgitation. ?Estimated pulmonary artery peak systolic pressure 38 mmHg. ?There are no intracardiac masses. ?There is no pericardial effusion. ?Compared to the previous study from 12/28/2022, there is slight ?drop in the LV ejection fraction from 47% to 42% Cath in 2022 Conclusions 1. Severe multivessel CAD including ostial RCA, 2. left main and proximal to mid LAD (confirmed with ifr value of 0.71 for left main/LAD). Patent prior stent in left circumflex artery. Balloon angioplasty of ostial RCA performed however the balloon did not completely expand and patient still had significant dampening of pressures with catheter engagement. 3. . 4. Proximal Right Coronary Artery was treated with a Balloon. -Recent history of CABG -Repeat cardiac echo -CONCLUSIONS LV systolic function is moderately reduced with EF of 35 to 40%. Grade 1 diastolic dysfunction. Left atrial dilation. Mild mitral regurgitation. Moderate aortic stenosis. Mild tricuspid regurgitation Moderate pulmonary hypertension Compared to prior echocardiogram from 06/2023 no significant changes are seen ? Plan ? Serial EKGs, start to monitor telemetry monitoring, ? Continue aspirin, Plavix, beta-catie ? Heparin drip ?cardiology consulted, n.p.o. midnight, plan for stress test tomorrow ? Type 2 diabetes mellitus, low-dose sliding scale, ? Hypothyroidism continue levothyroxine, ? End-stage renal disease, on peritoneal dialysis, currently receiving peritoneal dialysis, patient declines hemodialysis, - DNR/DNI, ? Heparin drip for DVT prophylaxis Attestations 2 Medical Necessity Statement*: Patient requires hospitalization for NSTEMI, plan on stress test tomorrow morning, n.p.o. midnight, currently on a heparin drip, monitoring for chest pain Diagnoses Essential hypertension I10 Atherosclerotic heart disease of [place] coronary artery with unstable angina pectoris I25.110 Coronary artery disease due to type 2 diabetes mellitus E11.59; I25.10 S/P CABG (coronary artery bypass graft) Z95.1 ESRD (end stage renal disease) N18.6 End-stage renal disease on peritoneal dialysis N18.6; Z99.2 Chest pain R07.9 NSTEMI (non-ST elevated myocardial infarction) I21.4
[2023-08-09 15:39] LABS: Partial Thromboplastin Time 97.7 SECONDS (23.9-36.7)
--- NOTE | 2023-08-09 17:01 | PC.NURSE ---
Patients dexcom is 107 at 1701.
[2023-08-09] MEDS: pregabalin 150 mg Capsule PO (17:20)
[2023-08-09] MEDS: atorvastatin 40 mg Tablet PO (17:20)
[2023-08-09] MEDS: sertraline 50 mg Tablet 75 MG PO (17:20)
[2023-08-09] MEDS: amlodipine 5 mg Tablet PO (17:20)
[2023-08-09] MEDS: clopidogrel 75 mg Tablet PO (17:20)
[2023-08-09] MEDS: famotidine 20 mg Tablet PO (17:20)
[2023-08-09] MEDS: acetaminophen 325 mg Tablet 650 MG PO (17:31)
--- NOTE | 2023-08-09 19:06 | P.PN_ITS ---
Subjective 2 Subjective: doing well Medications: Reviewed: Yes Vitals/I&O/Wt Last Vital Signs Temp 98.3 F 08/09/23 16:00 Pulse 74 08/09/23 16:00 Resp 21 H 08/09/23 16:00 BP 132/98 08/09/23 16:00 Pulse Ox 95 08/09/23 16:00 O2 Del Method Room Air 08/09/23 16:00 08/09/23 08/09/23 08/09/23 06:59 14:59 22:59 Intake Total 341.303 / 581.303 598.697 / 598.697 99.733 / 698.430 Output Total 0 / 0 Balance 341.303 / 581.303 598.697 / 598.697 99.733 / 698.430 Weight last 48 hrs Weight 84.822 kg Weight 86.183 kg Weight 86.183 kg Physical Exam 2 Narrative: awake ,alert HEENT S1 S2 RRR per report no edema Data 08/09/23 03:41 08/09/23 03:41 A&P Assessment and plan (1) ESRD (end stage renal disease): 1. ESRD -on PD , getting PD via cycler while in here 2. Chest pain , h/o multivessel coronary disease , followed by cardiology 3. HTN , resume home meds 4. DM-2 5.Chronic Anemia Attestations 2 Medical Necessity Statement*: per medicine Coding Level of Care Code Acute Code for Chg Fwd Diagnoses ESRD (end stage renal disease) N18.6
[2023-08-09] MEDS: ropinirole 1 mg Tablet 0.5 MG PO (20:20)
[2023-08-09] MEDS: zolpidem 5 mg Tablet 10 MG PO (20:20)
[2023-08-09 22:10] LABS: Partial Thromboplastin Time 62.1 SECONDS (23.9-36.7)
[2023-08-10] VITALS (8 sets, daily range): BP systolic 147–164; BP diastolic 68–95; PULSE 67–80; RESP 18–28; TEMP 36.4; O2SAT 93–95
--- NOTE | 2023-08-10 04:30 | PC.NURSE ---
The patient was on his home unit for peritoneal dialysis overnight, completed by 4:30am. The patient tolerated well. Vitals signs stable.
[2023-08-10 05:17] LABS: Basophils % 0.5 %; Eosinophils # 0.2 10^3/uL (0.0-0.8); Eosinophils % 3.7 %; Hematocrit 27.8 % (37-53); Lymphocytes # 1.4 10^3/uL (0.8-4.8); Lymphocytes % 23.2 %; Mean Corpuscular HGB Conc 32.4 g/dL (30-55); Mean Corpuscular Hemoglobin 28.6 pg (27-33); Mean Corpuscular Volume 88.3 fl (82-101); Mean Platelet Volume 10.2 fL (7.4-10.4); Monocytes # 0.7 10^3/uL (0.2-0.9); Monocytes % 12.4 %; Neutrophils # 3.57 10^3/uL (1.8-7.7); Neutrophils % 59.7 %; Nucleated Red Blood Cells % 0 %; Platelet Count 137 10^3/cmm (157-399); Red Blood Count 3.15 10^6/uL (3.85-5.65); White Blood Count 5.98 10^3/uL (3.29-11.43)
[2023-08-10 05:28] LABS: Partial Thromboplastin Time 60.2 SECONDS (23.9-36.7)
[2023-08-10 05:49] LABS: Alanine Aminotransferase 17 U/L (0-41); Albumin Level 2.1 g/dL (3.5-5.2); Alkaline Phosphatase 129 U/L (40-130); Aspartate Amino Transferase 22 U/L (0-40); Blood Urea Nitrogen 38 mg/dL (8-23); Calcium 8.4 mg/dL (8.5-10.5); Carbon Dioxide 23 mmol/L (22-29); Chloride 98 mmol/L (98-107); Glucose 125 mg/dL (65-115); Magnesium 1.8 mg/dL (1.7-2.3); Osmolality Calculated 289 mOsm/kg (285-295); Phosphorus 6.7 mg/dL (2.5-4.5); Sodium 134 mmol/L (136-145); Total Bilirubin 0.2 mg/dL (0.15-1.2); Total Protein 5.1 g/dL (6.6-8.7)
[2023-08-10] MEDS: levothyroxine 150 mcg Tablet PO (05:54)
[2023-08-10] MEDS: b-complex-vitamin c Tablet 1 EACH PO (05:54)
--- NOTE | 2023-08-10 06:30 | PC.NURSE ---
Patients blood glucose was 94 on his dexcom this morning.
[2023-08-10] MEDS: regadenoson 0.4 Mg/5 ml Syringe IVP (07:18)
--- NOTE | 2023-08-10 08:33 | PM.PN ---
Subjective Subjective: Patient not complaining of chest pain. Had stress test today that shows prior small sized infarcts but no significant ischemia. Vitals/I&O/Wt Last Vital Signs Temp 97.6 F 08/10/23 03:59 Pulse 80 08/10/23 07:32 Resp 18 08/10/23 03:59 BP 147/68 08/10/23 07:32 Pulse Ox 93 08/10/23 03:59 O2 Del Method Room Air 08/10/23 03:59 08/09/23 08/10/23 08/10/23 22:59 06:59 14:59 Intake Total 799.733 / 1398.430 0 / 1398.430 Output Total 0 / 0 0 / 0 Balance 799.733 / 1398.430 0 / 1398.430 Weight last 48 hrs Weight 184 lb Weight 187 lb Weight 190 lb Physical Exam Narrative: GENERAL: Patient is alert, awake and oriented x3. [] NECK: No jugular vein distension. [] HEENT: No cyanosis. No icterus. No pallor. [] HEART: Regular S1 and S2. No murmur, rub or gallop. [] LUNGS: Clear to auscultate bilaterally. [] CENTRAL NERVOUS SYSTEM: Grossly nonfocal. [] EXTREMITIES: Lower extremities with 1+ edema bilaterally. Data 08/10/23 04:05 08/10/23 04:05 A&P Assessment and plan (1) Chest pain: (2) Hyperlipidemia: Qualifiers: Hyperlipidemia type: unspecified Qualified Code(s): E78.5 - Hyperlipidemia, unspecified (3) Hypertension: (4) Atherosclerotic heart disease of [place] coronary artery with unstable angina pectoris: (5) End-stage renal disease on peritoneal dialysis: (6) Elevated troponin: Plan Patient's stress test does not reveal significant ischemia. We will continue with current medical therapy. Continue aspirin. Can uptitrate metoprolol to 50 mg daily. Thank you for involving us with care of this patient. Patient is stable to be discharged from cardiology standpoint. Please call with questions. Attestations Medical Necessity Statement*: Care expected to cross 2 midnights. Coding Level of Care Code Acute Code for [facility] Diagnoses Chest pain R07.9 Hyperlipidemia, unspecified hyperlipidemia type E78.5 Hyperlipidemia type: unspecified Essential hypertension I10 Atherosclerotic heart disease of [place] coronary artery with unstable angina pectoris I25.110 End-stage renal disease on peritoneal dialysis N18.6; Z99.2 Elevated troponin R77.8
[2023-08-10] MEDS: magnesium lactate 84 mg Tablet PO (09:34)
[2023-08-10] MEDS: calcium acetate 667 mg Capsule 2668 MG PO ×2 (09:34→12:20)
[2023-08-10] MEDS: aspirin 81 mg EC Tablet PO (09:34)
[2023-08-10] MEDS: losartan 50 mg Tablet 25 MG PO (09:35)
[2023-08-10] MEDS: potassium chloride ER 20 mEq Tablet PO (09:35)
[2023-08-10] MEDS: metoprolol succinate ER (24 HR) 25 mg Tablet PO (09:35)
[2023-08-10] MEDS: isosorbide mononitrate ER 60 mg Tablet 120 MG PO (09:35)
[2023-08-10] MEDS: lipase-protease-amylase Capsule 5 EACH PO ×2 (09:36→12:19)
[2023-08-10 10:44] LABS: Partial Thromboplastin Time 35.1 SECONDS (23.9-36.7)
[2023-08-10] MEDS: heparin 5,000 unit/mL INJ 1 mL IV (11:14)
--- NOTE | 2023-08-10 11:50 | NMCV_ITS ---
NM to perf SPECT r/s* [id number] Anshu Hurt Age: 73 Gender: M : 1950 Exam Date: 08/10/2023 11:50 Ordering Phys: Rony Duran MD Technologist: NATY Larkin Exam [facility]: [facility] Indications: CP STRESS TEST Please see separate stress test report in [facility] for full findings IMAGE PROTOCOL Rest/Stress 1 Lexiscan Day Radiopharmaceutical Dose (mCi) Administration Site Administered by Rest: Tc-99m 9.9 IV NATY Larkin Sestamibi Stress:Tc-99m 30.2 IV NATY Larkin Sestamibi Rest: 10-Aug-2023 60 Discovery 630 Stress: 10-Aug-2023 30 Discovery 630 0.4mg Lexiscan. Supine position only as patient was unable to lay prone. SPECT RESULTS Technical Quality: Good Raw Data Analysis: Normal Image Corrections: No attenuation or motion correction applied Summed Stress Score: 3 Summed Rest Score: 0 Summed Difference Score: 3 PERFUSION FINDINGS There is a small sized, fixed perfusion defect noted in the mid anterior wall. Small sized, fixed perfusion defect is seen in inferior wall. This is consistent with small area of prior infarct in LAD and RCA territory. No significant reversibility. FUNCTIONAL RESULTS (calculated via Gated SPECT) Stress Image LV EF (%): 28 Stress EDV (mL):212 TID: 0.93 Stress ESV (mL):153 FUNCTIONAL FINDINGS: LV systolic function is severely reduced with EF of 28%. Severe global hypokinesis. IMPRESSIONS 1. Abnormal myocardial perfusion imaging with small sized areas of prior infarcts noted in the RCA and LAD territories. No significant ischemia 2. LV systolic function is severely reduced. Lino Javier MD (Electronically Signed) Final Date: 10 August 2023 11:02 S
--- NOTE | 2023-08-10 12:15 | PM.DCS ---
Discharge Providers Date of Admission: 08/08/23 10:51 Date of Discharge: August 10, 2023 Attending Provider at Admission: Rony Duran MD Attending Provider at Discharge: Rony Duran MD Primary Care Provider: Irene Jones Diagnoses at Discharge Discharge Diagnosis (1) Chest pain: Status: Acute (2) Hyperlipidemia: Status: Acute Qualifiers: Hyperlipidemia type: unspecified Qualified Code(s): E78.5 - Hyperlipidemia, unspecified (3) Hypertension: Status: Acute (4) Atherosclerotic heart disease of [place] coronary artery with unstable angina pectoris: Status: Acute (5) End-stage renal disease on peritoneal dialysis: Status: Acute (6) Elevated troponin: Status: Inactive Reason for Visit Reason for Visit: jocelyn cruz Hospital Course Hospital Course Anshu Hurt is a 73 year old male with a past medical history of CABG, CAD, end-stage renal disease on peritoneal dialysis, type 2 diabetes mellitus, patient declines hemodialysis, history of hypothyroidism, hypertension hyperlipidemia, who presents to [facility] for chest pain. Patient tells me he is roughly down 20 pounds over the last few months, this morning he woke up with severe substernal chest pain, left-sided radiating to his shoulder, improving with nitro, he tells me it did happen 1 time after but it resolved on its own, no recent fevers, chills, no cough, no abdominal pain, Patient was admitted to [facility] chest pain, NSTEMI, would undergo cardiac workup, cardiology consulted manage on heparin drip, aspirin, Plavix, beta-catie, no recurrent chest pain during hospitalization Cath in 2022 Conclusions 1. Severe multivessel CAD including ostial RCA, 2. left main and proximal to mid LAD (confirmed with ifr value of 0.71 for left main/LAD). Patent prior stent in left circumflex artery. Balloon angioplasty of ostial RCA performed however the balloon did not completely expand and patient still had significant dampening of pressures with catheter engagement. 3. . 4. Proximal Right Coronary Artery was treated with a Balloon. -Recent history of CABG -Repeat cardiac echo -Underwent cardiac stress testing and cardiac echo IMPRESSIONS 1. Abnormal myocardial perfusion imaging with small sized areas of prior infarcts noted in the RCA and LAD territories. No significant ischemia 2. LV systolic function is severely reduced. CONCLUSIONS LV systolic function is moderately reduced with EF of 35 to 40%. Grade 1 diastolic dysfunction. Left atrial dilation. Mild mitral regurgitation. Moderate aortic stenosis. Mild tricuspid regurgitation Moderate pulmonary hypertension Compared to prior echocardiogram from 06/2023 no significant changes are seen -Discussed with cardiology, plan on medically managing for now continue aspirin, statin, Plavix, increase beta-catie with close follow-up cardiology as outpatient?if any recurrent chest pain to go to emergency room Physical Exam Const: COMMON NORMALS: no acute distress and patient oriented x3 Resp: COMMON NORMALS: normal respiratory effort, No retractions, No use of accessory muscles and clear to auscultation bilaterally AUSCULTATION: clear to auscultation bilaterally Cardio: COMMON NORMALS: regular rate, regular rhythm, S1 normal heart sound present and S2 normal heart sound present RATE: regular rate RHYTHM: regular rhythm HEART SOUNDS: S1 normal heart sound present and S2 normal heart sound present GI: COMMON NORMALS: Normal to inspection, nondistended, normoactive bowel sounds present and non-tender Extremity: COMMON NORMALS: no pedal edema Neuro: COMMON NORMALS: patient oriented x3 Psych: COMMON NORMALS: mental status grossly normal Discharge Data Studies Completed and Pending Completed Studies During Hospitalization Category Date Time Status Sestamibi Stress Test Request Routine Exams 08/09/23 11:50 Draft XR chest 1V portable [id number] Stat Exams 08/08/23 05:52 Completed NM to perf SPECT r/s* [id number] Routine Nuc Med 08/10/23 11:50 Completed CV. echo complete* [id number] Stat Ultrasound 08/08/23 11:14 Completed Pending at discharge Category Date Time Status Blood Cultures ([facility]) Routine Lab 08/08/23 16:46 Received Blood Cultures ([facility]) Routine Lab 08/08/23 16:55 Received Complete Blood Count w/Auto AM LABS Lab 08/11/23 04:00 Ordered Comprehensive Metabolic Panel AM LABS Lab 08/11/23 04:00 Ordered Magnesium AM LABS Lab 08/11/23 04:00 Ordered Phosphorus AM LABS Lab 08/11/23 04:00 Ordered Urinalysis Routine Lab 08/08/23 15:22 Uncollected Radiology Impressions Chest X-Ray 08/08/23 05:52 IMPRESSION: Findings compatible with CHF and/or pneumonia. Laboratory Results WBC 5.98 10^3/uL (3.29-11.43) 08/10/23 04:05 RBC 3.15 10^6/uL (3.85-5.65) L 08/10/23 04:05 Hgb 9.00 g/dL (11.27-16.99) L 08/10/23 04:05 Hct 27.8 % (37-53) L 08/10/23 04:05 MCV 88.3 fl (82-101) 08/10/23 04:05 MCH 28.6 pg (27-33) 08/10/23 04:05 MCHC 32.4 g/dL (30-55) 08/10/23 04:05 RDW 15.0 % (12.1-15.1) 08/10/23 04:05 Plt Count 137 10^3/cmm (157-399) L 08/10/23 04:05 MPV 10.2 fL (7.4-10.4) 08/10/23 04:05 Neut % (Auto) 59.7 % 08/10/23 04:05 Lymph % (Auto) 23.2 % 08/10/23 04:05 [place] % (Auto) 12.4 % 08/10/23 04:05 Eos % (Auto) 3.7 % 08/10/23 04:05 Baso % (Auto) 0.5 % 08/10/23 04:05 Neut # (Auto) 3.57 10^3/uL (1.8-7.7) 08/10/23 04:05 Lymph # (Auto) 1.4 10^3/uL (0.8-4.8) 08/10/23 04:05 [place] # (Auto) 0.7 10^3/uL (0.2-0.9) 08/10/23 04:05 Eos # (Auto) 0.2 10^3/uL (0.0-0.8) 08/10/23 04:05 Baso # (Auto) 0.0 10^3/uL (0.0-0.1) 08/10/23 04:05 Nucleated RBC % (auto) 0 % 08/10/23 04:05 Nucleated RBCs # 0.0 /100WBC 08/10/23 04:05 PT 13.50 SECONDS (12.1-14.9) 08/08/23 11:40 INR 1.00 (0.8-1.2) 08/08/23 11:40 APTT 35.1 SECONDS (23.9-36.7) 08/10/23 10:06 Sodium 134 mmol/L (136-145) L 08/10/23 04:05 Potassium 4.0 mmol/L (3.5-5.1) 08/10/23 04:05 Chloride 98 mmol/L (98-107) 08/10/23 04:05 Carbon Dioxide 23 mmol/L (22-29) 08/10/23 04:05 Anion Gap 17.0 (5-19) 08/10/23 04:05 BUN 38 mg/dL (8-23) H 08/10/23 04:05 Creatinine 9.0 mg/dL (0.7-1.2) H* 08/10/23 04:05 GFR Calculation Not Reportable 08/10/23 04:05 Glucose 125 mg/dL (65-115) H 08/10/23 04:05 POC Glucose 77 mg/dL (70-110) 08/09/23 06:26 Calculated Osmolality 289 mOsm/kg (285-295) 08/10/23 04:05 Lactic Acid 0.7 mmol/L (0.5-2.2) 08/08/23 11:40 Calcium 8.4 mg/dL (8.5-10.5) L 08/10/23 04:05 Phosphorus 6.7 mg/dL (2.5-4.5) H 08/10/23 04:05 Magnesium 1.8 mg/dL (1.7-2.3) 08/10/23 04:05 Total Bilirubin 0.2 mg/dL (0.15-1.2) 08/10/23 04:05 AST 22 U/L (0-40) 08/10/23 04:05 ALT 17 U/L (0-41) 08/10/23 04:05 Alkaline Phosphatase 129 U/L (40-130) 08/10/23 04:05 Troponin T Baseline 323 ng/L (0-15) H* 08/08/23 05:59 Troponin T 120 Minute 319.8 ng/L (0-15) H 08/08/23 07:49 Delta Troponin T -3.2 ABS# (0-10) L 08/08/23 07:49 Troponin T Hi Sens 6Hr 311.8 ng/L (0-15) H 08/08/23 11:40 Troponin T Hi Sens 6Hr Delta -11.2 ng/L (0-12) L 08/08/23 11:40 NT-Pro-B Natriuret Pep > 21799 pg/mL (0-125) H 08/09/23 03:41 Total Protein 5.1 g/dL (6.6-8.7) L 08/10/23 04:05 Albumin 2.1 g/dL (3.5-5.2) L 08/10/23 04:05 Globulin 3.0 g/dL (1.3-4.6) 08/10/23 04:05 Procalcitonin 0.75 ng/mL (0-0.5) H 08/08/23 07:49 Procalcitonin 0.80 ng/mL (0-0.5) H 08/08/23 07:49 TSH 8.22 uIU/mL (0.27-4.20) H 08/08/23 16:55 Vitals Last Vital Signs Temp 97.6 F 08/10/23 03:59 Pulse 74 08/10/23 08:45 Resp 18 08/10/23 08:45 BP 164/81 08/10/23 09:35 Pulse Ox 95 08/10/23 08:45 O2 Del Method Room Air 08/10/23 08:45 Discharge Plan Discharge Patient Disposition: Home Condition: Stable Prescriptions: New magnesium L-lactate [Magtab] 84 mg Tablet Extended Release 84 mg PO DAILY 30 Days Qty: 60 0RF Continued nitroglycerin [Nitrostat] 0.4 mg tablet, sublingual 0.4 mg SUBLINGUAL Q5M PRN (Reason: Chest Pain) Qty: 25 2RF Rx Instructions: do not exceed 3 doses per episode clopidogrel 75 mg tablet 75 mg PO QPM Creon 12,000-38,000 -60,000 unit Capsule,Delayed Release(Dr/Ec) See Rx Instructions .ROUTE .COMPLEX Rx Instructions: 5 cap po with meals and 2-3 caps with snacks. levothyroxine [Euthyrox] 150 mcg Tablet 150 mcg PO QAM Rx Instructions: Take on an empty stomach sertraline 50 mg Tablet 75 mg PO QPM pregabalin [Lyrica] 150 mg Capsule 150 mg PO QPM calcium acetate(phosphat bind) 667 mg capsule See Rx Instructions .ROUTE .COMPLEX Rx Instructions: Take 4 caps PO with meals and 2 caps with snacks. (Do not exceed 16 caps per day). cholecalciferol (vitamin D3) 1,250 mcg (50,000 unit) capsule 50,000 unit PO Q7D Rx Instructions: on wed famotidine 20 mg tablet 20 mg PO QPM isosorbide mononitrate 120 mg tablet extended release 24 hr 120 mg PO DAILY Qty: 60 0RF clonidine HCl 0.1 mg tablet 0.1 mg PO Q8H PRN (Reason: hypertensive emergency) Qty: 30 0RF losartan 25 mg tablet 25 mg PO DAILY hydroxyzine pamoate 25 mg capsule 25 mg PO BID albuterol sulfate 90 mcg/actuation HFA aerosol inhaler 1 - 2 puff INHALATION Q4H PRN (Reason: Shortness Of Breath) ropinirole 0.5 mg tablet 0.5 mg PO BID PRN (Reason: Restless Leg(S)) zolpidem 10 mg tablet 10 mg PO BEDTIME RenaPlex-D 800 mcg-12.5 mg -2,000 unit tablet 1 tab PO QAM atorvastatin 40 mg tablet 40 mg PO QPM 30 Days Qty: 30 3RF insulin aspart U-100 [Novolog FlexPen U-100 Insulin] 100 unit/mL (3 mL) insulin pen See Rx Instructions .ROUTE .COMPLEX Qty: 15 0RF Rx Instructions: sliding scale tid amlodipine 5 mg tablet 5 mg PO QPM aspirin 81 mg tablet,delayed release (DR/EC) 81 mg PO QPM insulin glargine [Basaglar KwikPen U-100 Insulin] 100 unit/mL (3 mL) insulin pen See Rx Instructions .ROUTE .COMPLEX Rx Instructions: dosing depends on PD fluid potassium chloride 20 mEq Tablet Extended Release 20 meq PO DAILY Changed metoprolol succinate 25 mg tablet extended release 24 hr 50 mg PO DAILY 30 Days Qty: 60 0RF Discharge Orders: Discharge Order (Routine); Ordered 08/10/23 Ordered By: Rony Duran Referrals: Kiran Reardon MD [Primary Care Provider] - Discharge Diet: Cardiac Discharge Activity: Resume usual activity Patient Instructions: Heart Failure (DC), CHF Stoplight, Opioid Safety, Post Heart Attack Stoplight Activity Restrictions/Additional Instructions: - If you have any recurrent chest pain please go to the emergency room Discharge Attestations Time Spent in Discharge Care*: greater than 30 min Quality Metrics Clinical Quality Measures [ No reported AMI, CVA or VTE this stay] Coding Level of Care Code 22003 Total time (in minutes) for Discharge: 45 Diagnoses Chest pain R07.9 Hyperlipidemia, unspecified hyperlipidemia type E78.5 Hyperlipidemia type: unspecified Essential hypertension I10 Atherosclerotic heart disease of [place] coronary artery with unstable angina pectoris I25.110 End-stage renal disease on peritoneal dialysis N18.6; Z99.2 Elevated troponin R77.8
[2023-08-10] MEDS: insulin lispro 100 unit/1 mL SUBCUT (12:20)
--- NOTE | 2023-08-10 12:43 | P.PN_ITS ---
Subjective 2 Subjective: doing well Medications: Reviewed: Yes Vitals/I&O/Wt Last Vital Signs Temp 97.6 F 08/10/23 03:59 Pulse 74 08/10/23 08:45 Resp 18 08/10/23 08:45 BP 164/81 08/10/23 09:35 Pulse Ox 95 08/10/23 08:45 O2 Del Method Room Air 08/10/23 08:45 08/09/23 08/10/23 08/10/23 22:59 06:59 14:59 Intake Total 799.733 / 1398.430 0 / 1398.430 553.683 / 553.683 Output Total 0 / 0 0 / 0 Balance 799.733 / 1398.430 0 / 1398.430 553.683 / 553.683 Weight last 48 hrs Weight 83.461 kg Weight 84.822 kg Weight 86.183 kg Physical Exam 2 Narrative: awake ,alert HEENT S1 S2 RRR per report no edema Data 08/10/23 04:05 08/10/23 04:05 A&P Assessment and plan (1) ESRD (end stage renal disease): 1. ESRD -on PD , getting PD via cycler while in here 2. Chest pain , h/o multivessel coronary disease , followed by cardiology 3. HTN , resume home meds 4. DM-2 5.Chronic Anemia Attestations 2 Medical Necessity Statement*: per [email or web address] Coding Level of Care Code Acute Code for Chg Fwd Diagnoses ESRD (end stage renal disease) N18.6
== END 2023-08-10 15:03 | disposition home or self-care (01) | DRG 280 ==
LOC: ER 06:02 → CSU 12:03
PROVIDERS: Student in an Organized Health Care Education/Training Program; Admitting Provider Family Medicine; Emergency Provider Family Medicine; PCP Family Medicine; Visit Provider Family Medicine
DX: I21.4 Non-ST elevation (NSTEMI) myocardial infarction (principal); N18.6 End stage renal disease; I12.0 Hypertensive chronic kidney disease with stage 5 chronic kidney disease or end stage renal disease; I25.110 Atherosclerotic heart disease of native coronary artery with unstable angina pectoris; E11.43 Type 2 diabetes mellitus with diabetic autonomic (poly)neuropathy; K31.84 Gastroparesis; J44.9 Chronic obstructive pulmonary disease, unspecified; E11.22 Type 2 diabetes mellitus with diabetic chronic kidney disease; G20.A1 Parkinson's disease without dyskinesia, without mention of fluctuations; F32.A Depression, unspecified; E03.9 Hypothyroidism, unspecified; E78.5 Hyperlipidemia, unspecified; M10.9 Gout, unspecified; E11.59 Type 2 diabetes mellitus with other circulatory complications; Z66 Do not resuscitate; Z95.1 Presence of aortocoronary bypass graft; Z87.01 Personal history of pneumonia (recurrent); Z99.2 Dependence on renal dialysis; Z79.4 Long term (current) use of insulin; Z79.82 Long term (current) use of aspirin; Z87.891 Personal history of nicotine dependence; Z79.02 Long term (current) use of antithrombotics/antiplatelets
CPT/HCPCS: 36415; 36416; 71045; 78452; 80053; 82962; 83605; 83735; 83880; 84100; 84145; 84443; 84484; 85025; 85049; 85610; 85730; 87040; 93005; 93017; 93306; 94664; 96372; 96375; 99285; A9500; J1644; J1815; J2785; Q3014

== ENCOUNTER → 2023-08-17 11:28 | Outpatient (BNVA) | payer MEDICARE, OTHER, SELFPAY | PROVIDERS: PCP Family Medicine; Visit Provider Internal Medicine Pulmonary Disease | DX: E11.42 Type 2 diabetes mellitus with diabetic polyneuropathy (principal); L60.3 Nail dystrophy; J90 Pleural effusion, not elsewhere classified; J96.12 Chronic respiratory failure with hypercapnia; Z01.811 Encounter for preprocedural respiratory examination; N18.5 Chronic kidney disease, stage 5; E11.22 Type 2 diabetes mellitus with diabetic chronic kidney disease; I73.9 Peripheral vascular disease, unspecified; M20.41 Other hammer toe(s) (acquired), right foot; M20.42 Other hammer toe(s) (acquired), left foot; Z79.4 Long term (current) use of insulin; Z87.891 Personal history of nicotine dependence | CPT/HCPCS: 11721; 99214 ==